=== PATIENT | male | born 1950 | race Caucasian/White ===

== ENCOUNTER → 2017-04-02 | Day surgery (SDC) | payer OTHER, MEDICARE ==
[2017-03-26 08:24] VITALS: Ht 175.3 cm; Wt 77.3 kg
[~2017-04-02] VITALS: Ht 175.3 cm; Wt 77.3 kg
[~2017-04-02] MED LIST: ALPR-411 PO; ASPCH81X PO; LIDOCAINE HCL 2% 2 ML VIAL (20MG/ML) ONE; MIDAZOLAM HCL 1 MG/ML 2ML VIAL ONE; PROPOFOL IV EMULSION 10 MG/ML 20 ML VIAL IV ONE; SIMV40TA2 PO; SODIUM CHLORIDE 0.9% 500ML 500 ML IV ONE; TRAZ100T29 PO
--- NOTE | 2017-04-02 10:35 | Endo History and Physical ---
History & Physical Date of Service: April 02, 2017. Chief Complaint: SCREENING FOR COLON C.A. Referring Physician: DR. STEVE WISDOM History of Present Illness 67 yo CM who presents for screening colonoscopy. Past Surgical History Hx Cardiac Surgery: No Hx Internal Defibrillator: No Hx Pacemaker: No Hx Abdominal Surgery: No Hx of Implantable Prosthesis: No Hx Post-Op Nausea and Vomiting: No Hx Cancer Surgery: Yes (BACK MELANOMA REMOVAL) Hx Thoracic Surgery: No Hx Orthopedic: Yes (LEFT KNEE ARTHROSCOPY, RT SHOULDER ARTHROSCOPY) Hx Urinary Tract Surgery: No Family History None Social History Smoking Status: Never Smoker Hx Substance Use: No Hx Alcohol Use: Yes (30 DRINKS WEEKLY) Allergies Coded Allergies: No Known Allergies (Verified , 04/02/17) Current Medications Reported Home Medications Medications Dose Route/Sig Max Daily Dose Days Date Category Xanax (Alprazolam) 0.5 Mg Tab 0.5 Mg PO HS PRN 03/26/17 Reported Trazodone (Trazodone HCl) 100 Mg Tab 100 Mg PO HS PRN 03/26/17 Reported Aspirin Chewable (Aspirin) 81 Mg Chew 81 Mg PO QPM 03/26/17 Reported Zocor (Simvastatin) 40 Mg Tab 40 Mg PO QPM 03/26/17 Reported Vital Signs Weight (Kilograms): 77.27 Height (Feet): 5 Height (Inches): 9 Date Time Temp Pulse Resp B/P Pulse Ox O2 Delivery O2 Flow Rate FiO2 04/02/17 09:20 36.9 69 14 147/73 99 Room Air Physical Exam General Appearance: WD/WN, no apparent distress Respiratory/Chest: Auscultation: breath sounds normal Cardiovascular: Heart Auscultation: RRR Abdomen: Bowel Sounds: normal Inspection & Palpation: soft, non-distended, no tenderness, guarding & rebound Assessment and Plan Assessment: 67 yo CM who presents for screening colonoscopy. Plan: Proceed with colonoscopy.
--- NOTE | 2017-04-02 10:58 | Discharge Instructions ---
Endoscopy Patient Instructions Date / Procedure(s) Performed April 02, 2017. Colonoscopy Allergy Information Coded Allergies: No Known Allergies (Verified , 04/02/17) Discharge Date / Findings April 02, 2017. Colon polyps Diverticulosis Internal hemorrhoids Medication Instructions Stopped Medication(s): ASPIRIN LAST 03/31/17 2100 OK to resume all medications today as prescribed Reported Home Medications Medications Dose Route/Sig Max Daily Dose Days Date Category Xanax (Alprazolam) 0.5 Mg Tab 0.5 Mg PO HS PRN 03/26/17 Reported Trazodone (Trazodone HCl) 100 Mg Tab 100 Mg PO HS PRN 03/26/17 Reported Aspirin Chewable (Aspirin) 81 Mg Chew 81 Mg PO QPM 03/26/17 Reported Zocor (Simvastatin) 40 Mg Tab 40 Mg PO QPM 03/26/17 Reported Provider Instructions Activity Restrictions - No exercising or heavy lifting for 24 hours. - Do not drink alcohol the day of the procedure. - Do not drive a car or operate machinery until the day after the procedure. - Do not make any important decisions or sign important papers in 24 hours after the procedure. Following Day: - Return to full activity which may include returning to work/school. Diet Start your diet with liquids and light foods (jello, soup, juice, toast). Then eat your usual diet if not nauseated. Treatment For Common After Affects For mild abdominal pain, bloating, or excessive gas: - Rest - Eat lightly - Lie on right side Follow-Up Information Follow-up with DR. STEVE WISDOM as scheduled Anesthesia Information What You Should Know You have had a procedure that required some medicine to reduce anxiety and discomfort. This treatment is called moderate sedation. After receiving the treatment, you may be sleepy, but you will be able to breathe on your own. The effects of the treatment may last for several hours. Follow these instructions along with Activity/Diet recommendations noted above: * Do NOT do anything where dizziness or clumsiness would be dangerous. * Rest quietly at home today, then you can be up and about tomorrow. * Have a responsible person stay with you the rest of today. * You may have had an I.V. today. If so, you may take the dressing off later today. Recommendations Call your doctor if: * Trouble breathing * Continuous vomiting for more than 24 hours * Temperature above 101 degrees * Severe abdominal pain or bloating * Pain not relieved by pain medicine ordered * There is increased drainage or redness from any incision * A large amount of rectal bleeding greater than 2-3 tablespoons. (If you had a polyp/s removed or have hemorrhoids, a small amount of blood - from the rectum is to be expected.) * You have any unanswered questions or concerns. IN THE EVENT OF A SERIOUS EMERGENCY, GO TO THE NEAREST EMERGENCY ROOM Your discharge instructions were prepared by provider Oren Eller. Patient Instructions Signature Page Rafael Cramer Patient (or Guardian) Signature/Date: I have read and understand the instructions given to me by my caregivers. Caregiver/RN/Doctor Signature/Date: The above-named patient and/or guardian has received patient instructions on this date. + Original Patient Signature Page (only) stays with chart. Please make copy for patient.
--- NOTE | 2017-04-02 10:58 | GI REPORT ---
Procedure Date: 04/02/2017 10:34 AM Procedure: Colonoscopy Indications: Screening for colorectal malignant neoplasm Medicines: Monitored Anesthesia Care Complications: No immediate complications. Estimated Blood Loss: Estimated blood loss: none. Procedure: Pre-Anesthesia Assessment: - Prior to the procedure, a History and Physical was performed, and patient medications and allergies were reviewed. The patient's tolerance of previous anesthesia was also reviewed. The risks and benefits of the procedure and the sedation options and risks were discussed with the patient. All questions were answered, and informed consent was obtained. Prior Anticoagulants: The patient has taken aspirin, last dose was 2 days prior to procedure. ASA Grade Assessment: II - A patient with mild systemic disease. After reviewing the risks and benefits, the patient was deemed in satisfactory condition to undergo the procedure. After I obtained informed consent, the scope was passed under direct vision. Throughout the procedure, the patient's blood pressure, pulse, and oxygen saturations were monitored continuously. The scope was introduced through the anus and advanced to the terminal ileum. The colonoscopy was performed without difficulty. The patient tolerated the procedure well. The quality of the bowel preparation was good. The terminal ileum, ileocecal valve, appendiceal orifice, and rectum were photographed. Findings: A 3 mm polyp was found in the cecum. The polyp was sessile. The polyp was removed with a cold biopsy forceps. Resection and retrieval were complete. A 5 mm polyp was found in the ascending colon. The polyp was sessile. The polyp was removed with a hot snare. Resection and retrieval were complete. Scattered small-mouthed diverticula were found in the entire colon. Non-bleeding internal hemorrhoids were found during retroflexion. The hemorrhoids were small. Impression: - One 3 mm polyp in the cecum, removed with a cold biopsy forceps. Resected and retrieved. - One 5 mm polyp in the ascending colon, removed with a hot snare. Resected and retrieved. - Diverticulosis in the entire examined colon. - Non-bleeding internal hemorrhoids. Recommendation: - Resume previous diet. - Continue present medications. - Repeat colonoscopy for surveillance based on pathology results. - Return to primary care physician as previously scheduled. Oren Eller DO 04/02/2017 10:58:45 AM This report has been signed electronically. Note Initiated On: 04/02/2017 10:34 AM I attest to the content of the Intraoperative Record and orders documented therein, exceptions below
--- NOTE | 2017-04-02 11:28 | Anesthesiology Progress Note ---
Anesthesia Post Op Note Date & Time April 02, 2017 at 11:27 Vital Signs Pain Intensity: 0 Vital Signs Past 12 Hours Date Time Temp Pulse Resp B/P Pulse Ox O2 Delivery O2 Flow Rate FiO2 04/02/17 11:15 66 16 122/80 97 Room Air 04/02/17 11:01 71 16 126/77 99 Room Air 04/02/17 09:20 36.9 69 14 147/73 99 Room Air Notes Mental Status: alert / awake / arousable, participated in evaluation Pt Amnestic to Procedure: Yes Nausea / Vomiting: adequately controlled Pain: adequately controlled Airway Patency, RR, SpO2: stable & adequate BP & HR: stable & adequate Hydration State: stable & adequate Anesthetic Complications: no major complications apparent
[2017-04-02 11:30] VITALS: BP 138/81; PULSE 73; O2SAT 97
== END | disposition home or self-care (01) ==
LOC: C.GI 09:02
PROVIDERS: ATTEND Internal Medicine
DX: Z12.11 Encounter for screening for malignant neoplasm of colon (principal); D12.0 Benign neoplasm of cecum; D12.2 Benign neoplasm of ascending colon; K57.30 Diverticulosis of large intestine without perforation or abscess without bleeding; K64.8 Other hemorrhoids; Z85.820 Personal history of malignant melanoma of skin; Z79.82 Long term (current) use of aspirin

== ENCOUNTER → 2017-07-02 | Outpatient (CLI) | payer OTHER, MEDICARE ==
[~2017-07-02] MED LIST changes: -LIDOCAINE HCL 2% 2 ML VIAL (20MG/ML) ONE; -MIDAZOLAM HCL 1 MG/ML 2ML VIAL ONE; -PROPOFOL IV EMULSION 10 MG/ML 20 ML VIAL IV ONE; -SODIUM CHLORIDE 0.9% 500ML 500 ML IV ONE
[2017-07-02 16:04] LABS: URINE PROTIEN/CREAT RATIO 0.3 (0-0.2); URINE TOTAL PROTEIN 59.9 mg/dl (0-11.9)
[2017-07-02 16:13] LABS: ALT/SGPT 22 U/L (12-78); AST/SGOT 14 U/L (15-37); BLOOD UREA NITROGEN 15 mg/dl (7-18); BUN/CREATININE RATIO 12.7 (10-20); CALCIUM 9.5 mg/dl (8.5-10.1); CARBON DIOXIDE 32 mmol/L (21-32); CHLORIDE 105 mmol/L (98-107); GLUCOSE 75 mg/dl (70-99); POTASSIUM 3.9 mmol/L (3.5-5.1); SODIUM 140 mmol/L (136-145)
[2017-07-02 16:24] LABS: ALB/GLOB RATIO 1.1 (0.9-2); ALKALINE PHOSPHATASE 54 U/L (45-117); CHOLESTEROL 188 mg/dl (0-200); CHOLESTEROL/HDL RATIO 2.6; HDL CHOLESTEROL 73 mg/dl; LDL CHOLESTEROL CALCULATED 89 mg/dl; PROSTATE SPECIFIC ANTIGEN 0.595 ng/ml (0.000-4.000); TRIGLYCERIDES 132 mg/dl (0-150); VERY LOW DENSITY LIPOPROT CALC 26 mg/dl
--- NOTE | 2017-07-09 08:26 | CODING QUERY MEDICAL NECESSITY ---
CQSUPPORTING DIAGNOSIS NEEDED A supporting diagnosis is required for the test/procedure performed on this patient in order for us to be reimbursed by the patient's insurance. Please provide a supporting diagnosis for the following test/procedure listed below next to the test name along with your signature. *If there is no additional diagnosis for this patient that would support the following test/procedure please document that below next to the test/procedure. Test(s)/Procedure(s) that require a supporting diagnosis: DOS 07/02/17 PROSTATE SPECIFIC ANTIGEN (PSA) Provider Signature: Date: Thank you Rosemarie London [facility] Information Management Once completed, please kindly fax back to [phone] For questions please call [phone]
== END | disposition home or self-care (01) ==
LOC: C.LAB 14:14
PROVIDERS: ATTEND Internal Medicine Geriatric Medicine
DX: Z00.00 Encounter for general adult medical examination without abnormal findings (principal); I10 Essential (primary) hypertension; E78.5 Hyperlipidemia, unspecified; R80.9 Proteinuria, unspecified; Z12.5 Encounter for screening for malignant neoplasm of prostate

== ENCOUNTER 2021-07-15 15:04 | Inpatient (IN) ==
[2021-07-15] MEDS ORDERED: SODIUM CHLORIDE 0.9% 1000ML 1,000 ML IV STA (16:56)
[2021-07-15] MEDS ORDERED: SODIUM CHLORIDE 0.9% 500 ML IV STA (16:56)
[2021-07-15 17:22] LABS: Basophils # (auto) 0.02 K/uL (0-0.2); Basophils % (auto) 0.3 %; Eosinophils # (auto) 0.77 K/uL (0-0.5); Hematocrit (blood only) 35.8 % (42-52); Hemoglobin 11.8 g/dL (14.0-18.0); Immature Granulocytes # (auto) 0.04 K/uL (0.00-0.02); Immature Granulocytes % (auto) 0.5 %; Lymphocytes # (auto) 0.61 K/uL (1.2-3.4); Lymphocytes % (auto) 7.9 %; Mean Corpuscular Hemoglobin 26.2 pg (25-34); Mean Corpuscular Volume 79.6 fL (80-100); Mean Platelet Volume 9.9 fL (7.4-10.4); Monocytes # (auto) 0.89 K/uL (0.11-0.59); Monocytes % (auto) 11.5 %; Neutrophils # (auto) 5.38 K/uL (1.4-6.5); Neutrophils % (auto) 69.8 %; Platelet Count 472 K/uL (130-400); RDW Coefficient of Variation 18.1 % (11.5-14.5); White Blood Count 7.71 K/uL (4.8-10.8)
--- NOTE | 2021-07-15 17:42 | XRay Report ---
XR chest 1V portable CLINICAL HISTORY: Fever COMPARISON STUDY: Chest radiograph May 30, 2016. FINDINGS: Lung volumes are normal. Lungs are clear. There is no pneumothorax or pleural effusion. Car diac size is normal. Mediastinal contours are normal. There is no evidence for pulmonary edema. IMPRESSION: No acute cardiopulmonary findings. ACT 112: Negative or not required by law. Electronically signed by: Braeden Hart M.D. 07/15/2021 5:41 PM
[2021-07-15 17:43] LABS: Appearance Urine Clear (Clear); Bacteria Urine Automated Negative (Negative); Blood Urine 1+ (Negative); Color Urine Dark Yellow; Epithelial Cell Urine Auto 0-5 /lpf (0-5); Glucose Urine UA Negative (Negative); Ketones Urine Negative (Negative); Leukocyte Esterase Urine 1+ (Negative); Nitrite Urine Positive (Negative); Protein Urine 2+ (Negative); RBC Urine Automated 0-4 /hpf (0-4); Urobilinogen Urine Negative (Negative); WBC Urine Automated 0 /hpf (0-5); pH Urine 5.5 (4.5-7.5)
[2021-07-15 17:44] LABS: Bilirubin Urine 3+ (Negative)
[2021-07-15 18:07] LABS: Alanine Aminotransferase 649 U/L (12-78); Albumin Globulin Ratio 0.8 (0.9-2); Albumin Level 3.2 gm/dl (3.4-5.0); Alkaline Phosphatase 344 U/L (45-117); Aspartate Aminotransferase 261 U/L (15-37); BUN Creatinine Ratio 8.2 (10-20); Bilirubin,Total 17.4 mg/dl (0.2-1); Blood Urea Nitrogen 9 mg/dl (7-18); Calcium 9.3 mg/dl (8.5-10.1); Carbon Dioxide 26 mmol/L (21-32); Chloride 101 mmol/L (98-107); Est GFR (African American) 74.3 ml/min; Est GFR (Non-African American) 64.1 ml/min; Globulin 4.1 gm/dl (2.5-4.0); Glucose 124 mg/dl (70-99); Lipase 183 U/L (73-393); Potassium 3.9 mmol/L (3.5-5.1); Sodium 134 mmol/L (136-145); Total Protein 7.3 gm/dl (6.4-8.2)
--- NOTE | 2021-07-15 18:35 | Emergency Department Note ---
Impression & Plan Fever ED Provider Note INFORMANT: Patient ED PROVIDER(S): Austin Baeza MD CHIEF COMPLAINT: Fever PLAN: Disposition: Admitted Condition: Good Outpatient prescription management: none Referral: None MEDICAL DECISION MAKING: Patient presented to emergency department because of fever after his attempted stenting of his biliary duct. The patient was afebrile and had stable vital sig ns in the ER. He had no significant pain. A work-up was initiated. CBC revealed mild anemia but no leukocytosis. Lactate was negative. The patient's urinalysis did reveal findings of a positive nitrate but his bilirubin was significantly elevated and urine was abnormal in color. The patient has no urinary symptoms. He has a significant elevation of his LFTs. When compared to prior his AST and ALT are improved. Alk phos and his total bilirubin is elevated. His total bilirubin jumped from 9.1 on July 10- 0.4. The patient was given a dose of IV Zosyn. I did consult with gastroenterology, Dr. Johnston who recommended transfer to [place] as he is concerned that we do not have the capability to stent the patient here. I did consult with Dr. Mantilla and Dr. Thayer at [facility]. The patient was accepted in transfer and we are awaiting a bed. We were notified by [facility] that they would not have a bed tonight but would have 1 tomorrow morning. Transport is also limited at this point in time. Because of this the patient will benefit from admission to the hospital here pending arrangement of the transfer. [facility]. Patient was evaluated in ER admitted for further management and pending transfer. Medical command for transfer was done by ct. Consent was signed. Triage Nursing notes reviewed and agree them. Vital Signs: reviewed and remarkable for no significant abnormalities Differential diagnosis: Complication of recent endoscopy, viral syndrome, otitis, pharyngitis, pneumonia, influenza, meningitis, urinary tract infection, sepsis, bacteremia, as well as other pathologies. Diagnostics interpreted by me: ECG: none Cardiac Monitoring: Cardiac monitoring ordered by me: The patient was placed on continuous cardiac monitoring and observed. It revealed a normal sinus rhythm at 80 beats per minute without ectopy or evidence of dysrhythmia. Imaging studies: Deferred HPI: The patient is a 71 year old male who presents to the Emergency Room with complaints of fever. This started today. The patient had an attempted stent placement from his pancreatic duct by Dr. Maradiaga of GI on Saturday. He notes that the stent was not able to be placed. He has a mass in his pancreas that was occluding. He has been jaundice. He notes biopsies done at the time were inconclusive. He is pending an appointment this week at [facility]. The patient also notes the following associated symptoms, dark urine which has been an issue since his onset of jaundice. The patient has taken no medication for relieving factors. Current pain is rated as 0/10. Pt denies LOC, headache, chills, diaphoresis, visual changes, neck pain, chest pain, breathing difficulties, nausea, vomiting, abdominal pain, back pain, melena, hematochezia, numbness, weakness, lymphadenopathy, rash, or other complaints. ROS: See above HPI for pertinent positives & negatives. A total of 10 systems reviewed and were otherwise negative. PAST MEDICAL HISTORY:See Below , pancreatic mass, jaundice PAST SURGICAL HISTORY:See Below, FAMILY HISTORY:See Below SOCIAL HISTORY:See Below, HOME MEDICATIONS:See Below ALLERGIES:See Below VITALS:See Below PHYSICAL EXAMINATION: GENERAL: Awake, alert, jaundiced-appearing, in no distress HENT: Normocephalic, atraumatic. Oropharynx unremarkable. EYES: Normal conjunctiva. Sclera are icteric. NECK: Inspection normal. Non-tender. Supple. No nuchal rigidity. FROM. No masses. RESPIRATORY: Clear to auscultation. No wheezes. No rales. Normal respiratory effort. CARDIAC: Normal rate. Normal rhythm. No murmurs. No rubs. Extremities warm and well perfused. Pulses equal. No JVD. GI: Soft, non-distended. No tenderness to palpation. No rebound or guarding. No masses. RECTAL: Deferred. MUSCULOSKELETAL: Atraumatic. Chest examination reveals no tenderness. The back is symmetrical on inspection without obvious abnormality. There is no CVA tenderness to palpation. No joint edema. LOWER EXTREMITIES: Calves are equal size bilaterally and non-tender. No edema. No discoloration. NEURO: Normal sensorium. No sensory or motor deficits noted. SKIN: No rash. Mild jaundice noted. Austin Baeza MD Past Med/Surg History Medical History (Updated 07/15/21 @ 18:35 by Austin Baeza MD) Alcohol abuse Anemia Anxiety Chronic osteoarthritis DVT of leg (deep venous thrombosis) 2019, previously on Eliquis (since discontinued), no issues since Hyperlipidemia Meds on hold r/t liver function per pt Hypertension Controlled off meds per pt Insomnia Pancreatic mass Personal history of malignant melanoma of skin Scoliosis Surgical History Hx of colonoscopy Hx of tonsillectomy Social History (Updated 01/05/19 @ 16:38 by Linwood Wilkinson MD) Smoking Status: Never smoker Second Hand Exposure: No; Hx Alcohol Use: Yes Alcohol type: beer Hx Substance Use: Yes Last Used Substance Other:: medical marijuanna card uses ocas Preferred Language: Arabic Communication Ability: Effective Assembler Billiard Table Required: No Beliefs That Will Affect Care: None Current Living Situation: Spouse current occupational status: employed 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 Feels Safe at Home: Yes Assistive Devices: Glasses Allergies Allergies Allergy/AdvReac Type Severity Reaction Status Date / Time No Known Allergies Allergy Verified 07/15/21 17:58 Home Meds Home Medications Medication Instructions Recorded Confirmed simvastatin 40 mg tablet 40 mg PO HS 01/05/19 07/15/21 aspirin 81 mg tablet,delayed 81 mg PO QAM 04/28/19 07/15/21 release fluorouracil 0.5 % topical cream 1 applic TOPICAL DAILY 07/11/21 07/15/21 ciprofloxacin HCl 500 mg tablet 500 mg PO BID 07/15/21 07/15/21 Previous Rx's Medication Instructions Recorded alprazolam 0.5 mg tablet 0.5 mg PO HS PRN #30 tab 07/02/19 trazodone 100 mg tablet 100 mg PO HS PRN #90 tab 07/02/19 Results & Data (ED) Vital Signs Vital Signs - 24 hr 07/15/21 15:16 07/15/21 17:31 07/15/21 19:42 Temperature 36.9 C Temperature Source Oral Pulse Rate 107 H Pulse Rate [Radial] 88 88 Pulse Rhythm Regular Pulse Strength Normal Respiratory Rate 18 16 16 Respiratory Effort / Characteristics Non-Labored Spontaneous Respiratory Depth Normal Respiratory Pattern Regular Blood Pressure 146/85 H Blood Pressure [Left Arm] 148/88 H 148/88 H Blood Pressure Mean 105 Blood Pressure Mean [Left Arm] 108 108 Pulse Oximetry 99 96 97 Oxygen Delivery Method Room Air Room Air Room Air Sepsis Recent Fever Within 48 Hours Yes Sepsis New/Unexplained Change in Mental Status No Sepsis Action Taken by Nursing No Action Required 07/15/21 21:41 Temperature Temperature Source Pulse Rate Pulse Rate [Radial] 80 Pulse Rhythm Pulse Strength Respiratory Rate 16 Respiratory Effort / Characteristics Respiratory Depth Respiratory Pattern Blood Pressure Blood Pressure [Left Arm] 144/83 H Blood Pressure Mean Blood Pressure Mean [Left Arm] 103 Pulse Oximetry 96 Oxygen Delivery Method Room Air Sepsis Recent Fever Within 48 Hours Sepsis New/Unexplained Change in Mental Status Sepsis Action Taken by Nursing Laboratory Data Result diagrams: 07/15/21 17:11 07/15/21 17:11 Lab Results 07/15/21 07/15/21 07/15/21 Range/Units 17:11 17:11 17:11 WBC 7.71 (4.8-10.8) K/uL RBC 4.50 L (4.7-6.1) M/uL Hgb 11.8 L (14.0-18.0) g/dL Hct 35.8 L (42-52) % MCV 79.6 L (80-100) fL MCH 26.2 (25-34) pg MCHC 33.0 (32-36) g/dL RDW Std Deviation 52.0 H (36.4-46.3) fL RDW Coeff of Gricelda 18.1 H (11.5-14.5) % Plt Count 472 H (130-400) K/uL MPV 9.9 (7.4-10.4) fL Immature Gran % (Auto) 0.5 % Neut % (Auto) 69.8 % Lymph % (Auto) 7.9 % Ogle % (Auto) 11.5 % Eos % (Auto) 10.0 % Baso % (Auto) 0.3 % Neut # (Auto) 5.38 (1.4-6.5) K/uL Lymph # (Auto) 0.61 L (1.2-3.4) K/uL Ogle # (Auto) 0.89 H (0.11-0.59) K/uL Eos # (Auto) 0.77 H (0-0.5) K/uL Baso # (Auto) 0.02 (0-0.2) K/uL Immature Gran # (Auto) 0.04 H (0.00-0.02) K/uL Sodium 134 L (136-145) mmol/L Potassium 3.9 (3.5-5.1) mmol/L Chloride 101 (98-107) mmol/L Carbon Dioxide 26 (21-32) mmol/L Anion Gap 7.0 (3-11) BUN 9 (7-18) mg/dl Creatinine 1.15 (0.6-1.4) mg/dl Est Cr Clr Drug Dosing Not Reportable Est GFR ( Amer) 74.3 ml/min Est GFR (Non-Af Amer) 64.1 ml/min BUN/Creatinine Ratio 8.2 L (10-20) Glucose 124 H (70-99) mg/dl Lactate 1.3 (0.4-2.0) mmol/L Calcium 9.3 (8.5-10.1) mg/dl Total Bilirubin 17.4 H (0.2-1) mg/dl AST 261 H (15-37) U/L ALT 649 H (12-78) U/L Alkaline Phosphatase 344 H (45-117) U/L Total Protein 7.3 (6.4-8.2) gm/dl Albumin 3.2 L (3.4-5.0) gm/dl Globulin 4.1 H (2.5-4.0) gm/dl Albumin/Globulin Ratio 0.8 L (0.9-2) Lipase 183 (73-393) U/L Urine Color Urine Appearance (Clear) Urine pH (4.5-7.5) Ur Specific [place] (1.000-1.030) Urine Protein (Negative) Urine Glucose (UA) (Negative) Urine Ketones (Negative) Urine Blood (Negative) Urine Nitrite (Negative) Urine Bilirubin (Negative) Urine Urobilinogen (Negative) Ur Leukocyte Esterase (Negative) Urine WBC (Auto) (0-5) /hpf Urine RBC (Auto) (0-4) /hpf U Hyaline Cast (Auto) (0-5) /lpf U Epithel Cells (Auto) (0-5) /lpf Urine Bacteria (Auto) (Negative) COVID-19 Eval Order SARS-CoV-2 (PCR) (Negative) 07/15/21 07/15/21 07/15/21 Range/Units 17:11 17:11 17:30 WBC (4.8-10.8) K/uL RBC (4.7-6.1) M/uL Hgb (14.0-18.0) g/dL Hct (42-52) % MCV (80-100) fL MCH (25-34) pg MCHC (32-36) g/dL RDW Std Deviation (36.4-46.3) fL RDW Coeff of Gricelda (11.5-14.5) % Plt Count (130-400) K/uL MPV (7.4-10.4) fL Immature Gran % (Auto) % Neut % (Auto) % Lymph % (Auto) % Ogle % (Auto) % Eos % (Auto) % Baso % (Auto) % Neut # (Auto) (1.4-6.5) K/uL Lymph # (Auto) (1.2-3.4) K/uL Ogle # (Auto) (0.11-0.59) K/uL Eos # (Auto) (0-0.5) K/uL Baso # (Auto) (0-0.2) K/uL Immature Gran # (Auto) (0.00-0.02) K/uL Sodium (136-145) mmol/L Potassium (3.5-5.1) mmol/L Chloride (98-107) mmol/L Carbon Dioxide (21-32) mmol/L Anion Gap (3-11) BUN (7-18) mg/dl Creatinine (0.6-1.4) mg/dl Est Cr Clr Drug Dosing Est GFR ( Amer) ml/min Est GFR (Non-Af Amer) ml/min BUN/Creatinine Ratio (10-20) Glucose (70-99) mg/dl Lactate (0.4-2.0) mmol/L Calcium (8.5-10.1) mg/dl Total Bilirubin (0.2-1) mg/dl AST (15-37) U/L ALT (12-78) U/L Alkaline Phosphatase (45-117) U/L Total Protein (6.4-8.2) gm/dl Albumin (3.4-5.0) gm/dl Globulin (2.5-4.0) gm/dl Albumin/Globulin Ratio (0.9-2) Lipase (73-393) U/L Urine Color Dark Yellow Urine Appearance Clear (Clear) Urine pH 5.5 (4.5-7.5) Ur Specific [place] 1.020 (1.000-1.030) Urine Protein 2+ H (Negative) Urine Glucose (UA) Negative (Negative) Urine Ketones Negative (Negative) Urine Blood 1+ H (Negative) Urine Nitrite Positive A (Negative) Urine Bilirubin 3+ H (Negative) Urine Urobilinogen Negative (Negative) Ur Leukocyte Esterase 1+ H (Negative) Urine WBC (Auto) 0 (0-5) /hpf Urine RBC (Auto) 0-4 (0-4) /hpf U Hyaline Cast (Auto) 1-5 (0-5) /lpf U Epithel Cells (Auto) 0-5 (0-5) /lpf Urine Bacteria (Auto) Negative (Negative) COVID-19 Eval Order Covid19 at [facility] SARS-CoV-2 (PCR) NEGATIVE (Negative) Administered Medications Discontinued Medications Sodium Chloride (Nss 1000ml) 1,000 mls @ 125 mls/hr IV .Q8H STA Stop: 07/16/21 00:55 Last Admin: 07/15/21 21:43 Dose: 125 mls/hr Documented by: [id number] Sodium Chloride (Nss) 500 mls @ 999 mls/hr IV .Q31M STA Stop: 07/15/21 17:26 Last Infusion: 07/15/21 20:23 Dose: 0 mls/hr Documented by: [id number] Admin: 07/15/21 19:38 Dose: 999 mls/hr Documented by: [id number] Piperacillin Sod/Tazobactam Sod (Zosyn) 4.5 gm in 120 mls @ 240 mls/hr IV NOW ONE Stop: 07/15/21 19:46 Last Infusion: 07/15/21 19:55 Dose: 0 mls/hr Documented by: [id number] Admin: 07/15/21 19:25 Dose: 240 mls/hr Documented by: [id number] Imaging Data Radiologist's Impression: Chest X-Ray 07/15/21 16:56 XR chest 1V portable CLINICAL HISTORY: Fever COMPARISON STUDY: Chest radiograph May 30, 2016. FINDINGS: Lung volumes are normal. Lungs are clear. There is no pneumothorax or pleural effusion. Cardiac size is normal. Mediastinal contours are normal. There is no evidence for pulmonary edema. IMPRESSION: No acute cardiopulmonary findings. ACT 112: Negative or not required by law. Electronically signed by: Braeden Hart M.D. 07/15/2021 5:41 PM Discharge Plan Visit Data Chief Complaint: Fever Stated Complaint: FEVER,LOSS OF APPETITE,S/P EGD ED Provider: Austin Baeza Discharge Problem: Fever
[2021-07-15] MEDS ORDERED: PIPERACILL/TAZOBAC CONSULT ACTIVE PRN (19:17)
[2021-07-15] MEDS ORDERED: PIPERACILLIN/TAZOBACTAM 4.5 GM/120 ML BAG IV ONE (19:17)
[2021-07-15] MEDS ORDERED: ALPRAZolam 0.5 MG TABLET PO PRN (23:21)
[2021-07-15] MEDS ORDERED: SODIUM CHLORIDE 0.9% 1000ML 1,000 ML IV SCH (23:21)
[2021-07-15] MEDS ORDERED: traZODone HCL 100 MG TAB PO PRN (23:21)
[2021-07-15] MEDS ORDERED: ONDANSETRON INJ 2 MG/ML 2 ML VIAL IV PRN (23:21)
[2021-07-15] MEDS ORDERED: POLYETHYLENE (MIRALAX) 17 GM PACK PO PRN (23:21)
[2021-07-15] MEDS ORDERED: NITROGLYCERIN SL 0.4 MG/TAB TAB SL PRN (23:21)
--- NOTE | 2021-07-15 23:37 | History and Physical Report ---
DATE OF ADMISSION: 07/15/2021. CHIEF COMPLAINT: Fever. HISTORY OF PRESENT ILLNESS: This is a 71-year-old male with past medical history significant for hyperlipidemia, hypertension, history of alcohol abuse, history of heterogenous factor V Leiden mutation, history of DVT. The patient recently about 2 weeks ago found to have change in his urine color and also started noticing new-onset jaundice. 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 But today he comes with fever. ER called the GI production troubleshooter and they advised to transfer him to tertiary care because they could not cannulate him here and as per the ER physician, Angie Gonzalez accepted him for transfer, was accepting physician, but because they do not have bed available, the patient is getting admitted, advised to give antibiotics and transfer whenever the bed is available. Currently, the patient is resting comfortably and hemodynamically stable, alert and oriented. Currently, he is afebrile. Has a mild headache. Denies any blurred visions, no earache, no runny nose. Currently, no sore throat or cough. No nausea, no vomiting. Appetite is okay. No dysphagia, no chest pain, no shortness of breath, no nausea. Has some squeezy feeling in the abdomen, but no abdominal pain. Stools are jo color and no blood in the stools, no hematuria. Urine looks orange color. No swelling in the legs, no rash. ALLERGIES: LISINOPRIL. PAST MEDICAL HISTORY: As mentioned above. PAST SURGICAL HISTORY: Cataract surgery, colonoscopy, left knee arthroscopy, tonsillectomy, adenoidectomy, left shoulder arthroscopy, vasectomy, ERCP. MEDICATIONS: Currently the patient is on alprazolam 0.5 mg p.o. at bedtime p.r.n., aspirin 81 mg p.o. daily, ciprofloxacin 500 mg p.o. b.i.d., fluorouracil 1 application topical daily, simvastatin 40 mg p.o. at bedtime, trazodone 100 mg p.o. at bedtime p.r.n. FAMILY HISTORY: Significant for father had brain cancer, prostate cancer, and heart disease; mother has ovarian cancer; brother has high lipids. SOCIAL HISTORY: , no smoking. Alcohol, drinks 4 drinks a day. Smokes marijuana. REVIEW OF SYSTEMS: As per HPI. Rest of the review of systems is negative. PHYSICAL EXAMINATION: GENERAL: The patient is of moderate build, not in acute distress. VITAL SIGNS: Temperature 36.9, pulse 80, respiratory rate 16, blood pressure 144/83, oxygen 96% on room air. HEENT: Icterus present. Pupils equal, round, and reactive to light. Oral mucosa moist. NECK: No JVD, no neck masses. CARDIOVASCULAR: S1 and S2 heard. Regular rate and rhythm. No murmur, no gallop. RESPIRATORY SYSTEM: Normal AP diameter. No accessory muscle use. No wheezing, no crackles. ABDOMEN: Soft, bowel sounds present, nontender, no distention. CENTRAL NERVOUS SYSTEM: Cranial nerves II-XII are grossly intact, nonfocal. EXTREMITIES: No edema, no erythema. LABORATORY DATA: WBC 7.7, hemoglobin 11.8, hematocrit 35.8, platelets 472. Sodium 134, potassium 3.9, chloride 101, bicarb 26, BUN 9, creatinine 1.1, serum glucose 124, calcium lactate 1.3, calcium 9.3, total bilirubin 17.4, AST 261, ALT 649, alkaline phosphatase 344. Lipase 183. Urinalysis, +1 blood. Positive for urine nitrite. SARS-CoV-2 PCR negative. IMAGING DATA: Chest x-ray, no acute cardiopulmonary findings. ASSESSMENT AND PLAN: A 71-year-old male who was recently found to have pancreatic mass, who presents with fever. 1. Fever: The patient was recently found to have new-onset jaundice and pancreatic mass on ERCP done on 07/12/2021. Unable to cannulate the common bile duct or pancreatic duct. Plan was to transfer the patient to tertiary care for further care. The patient has appointment with Austin Douglass coming Saturday, presents with fever. ER empirically started on Zosyn, which will be continued. GI wanted him transferred to [place] and the ER physician talked to [place], they accepted the patient in transfer, accepting physician was Dr. Mantilla but as the beds are not available, we are keeping the patient overnight and transfer whenever the bed is available. We will keep him n.p.o., IV fluids, IV Zosyn, and closely monitor. Elevated bilirubin, most likely secondary to biliary obstruction from the pancreatic mass. Plan for stent as soon as possible. 2. Possible urinary tract infection: On Zosyn. Follow the cultures. 3. Hyperlipidemia: Hold the statin for now. 4. History of alcohol abuse:Says drinks 4 drinks every day. But has not drank any for last 4 days. We will monitor for any withdrawal. 5. History of hypertension: Currently not on any medication, will monitor. 6. Deep venous thrombosis prophylaxis: We will place him on sequential compression devices following the plan for procedure. DISPOSITION: Closely monitor in the [facility]. Transfer to [place] whenever the bed is available, as soon as possible. Social service to help with discharge planning. Job ID: [id number]
[2021-07-16] MEDS ORDERED: PIPERACILLIN/TAZOBACTAM 3.375 GM in DEXTROSE 5% 100 ML IV SCH (02:00)
--- NOTE | 2021-07-16 07:40 | Hospitalist Progress Note ---
Date of Service July 16, 2021 Assessment & Plan (1) Fever: Plan: ASSESSMENT AND PLAN: A 71-year-old male who was recently found to have pancreatic mass, who presents with fever. 1. Fever, Possible Cholangitis, Biliary Obstruction per admitting MD notes: The patient was recently found to have new-onset jaundice and pancreatic mass on ERCP done on 07/12/2021. Unable to cannulate the common bile duct or pancreatic duct. Plan was to transfer the patient to tertiary care for further care. The patient has appointment with Austin Douglass coming Saturday, presents with fever. ER empirically started on Zosyn, which will be continued. GI wanted him transferred to [place] and the ER physician talked to [place], they accepted the patient in transfer, accepting physician was Dr. Mantilla but as the beds are not available, we are keeping the patient overnight and transfer whenever the bed is available. We will keep him n.p.o., IV fluids, IV Zosyn, and closely monitor. Elevated bilirubin, most likely secondary to biliary obstruction from the pancreatic mass. Plan for stent as soon as possible. -- Tot Eavn 17.4 AST 261 ALT 649 AP 344 Blood cultures: pending -- given Zosyn IV NSS -- afebrile overnight denies abdominal pain this AM -- transfer to [facility] for possible Stent placement 2. Possible urinary tract infection: On Zosyn. 3. Hyperlipidemia: -- hold Statin 4. History of alcohol abuse: -- Says drinks 4 drinks every day. But has not drank any for last 4 days. -- monitor for withdrawal 5. History of hypertension: -- monitor 6. Deep venous thrombosis prophylaxis: SCD plan of care discussed with patient in detail and at length all questions answered he is understanding, agreeable, comfortable with the plan of care Admission and Anticipated Discharge Date Admission Date: July 15, 2021 Subjective ff up for fever, possible cholangitis seen sitting up in bed, comfortable states he feels fine overall abdominal discomfort is much better no chills, nausea no chest pain, dyspnea, palpitations, dizziness no other symptoms Review of Systems Review of Systems: all noted and negative except for above Physical Exam 2 Physical Exam: General- oriented x 3, not in distress, speaks in sentences with no effort or accessory muscle use Head- atraumatic Eyes- PERRL, EOMI, anicteric ENT- oropharynx clear Neck- supple, no JVD, no adenopathy, no thyromegaly; carotids +2/2, no bruits appreciated Lungs- clear to auscultation bilaterally, no rales/wheezes Heart- normal rate, regular rhythm; no murmur, no gallop, no rub appreciated Abdomen- normal bowel sounds, nondistended, soft, nontender, no masses or hepatosplenomegaly Extremities- no pretibial edema, no calf tenderness; peripheral pulses intact Neuro- alert, oriented x 3; CN 2-12 grossly intact; motor 5/5 bilaterally;sensation 100% on all extremities; no other gross focal neurologic deficits Skin- warm & dry Results & Data Results & Data ([facility]) Vital Signs (Past 12 Hours) Vital Signs Temp Pulse Pulse Resp BP Pulse Ox 07/16/21 07:31 80 07/15/21 23:42 83 07/15/21 23:29 37.1 C 84 16 137/81 97 07/15/21 23:18 37.1 C 84 16 137/81 97 07/15/21 21:41 80 16 144/83 H 96 07/15/21 19:42 88 16 148/88 H 97 all noted and reviewed including below
--- NOTE | 2021-07-16 08:03 | Discharge Summary ---
Date of Service July 16, 2021 Admission HPI Per Admitting Provider HISTORY OF PRESENT ILLNESS: This is a 71-year-old male with past medical history significant for hyperlipidemia, hypertension, history of alcohol abuse, history of heterogenous factor V Leiden mutation, history of DVT. The patient recently about 2 weeks ago found to have change in his urine color and also started noticing new-onset jaundice. 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 But today he comes with fever. ER called the GI head neck surgeon and they advised to transfer him to tertiary care because they could not cannulate him here and as per the ER physician, Angie Gonzalez accepted him for transfer, was accepting physician, but because they do not have bed available, the patient is getting admitted, advised to give antibiotics and transfer whenever the bed is available. Currently, the patient is resting comfortably and hemodynamically stable, alert and oriented. Currently, he is afebrile. Has a mild headache. Denies any blurred visions, no earache, no runny nose. Currently, no sore throat or cough. No nausea, no vomiting. Appetite is okay. No dysphagia, no chest pain, no shortness of breath, no nausea. Has some squeezy feeling in the abdomen, but no abdominal pain. Stools are jo color and no blood in the stools, no hematuria. Urine looks orange color. No swelling in the legs, no rash. Admission Exam Per Admitting Provider GENERAL: The patient is of moderate build, not in acute distress. VITAL SIGNS: Temperature 36.9, pulse 80, respiratory rate 16, blood pressure 144/83, oxygen 96% on room air. HEENT: Icterus present. Pupils equal, round, and reactive to light. Oral mucosa moist. NECK: No JVD, no neck masses. CARDIOVASCULAR: S1 and S2 heard. Regular rate and rhythm. No murmur, no gal lop. RESPIRATORY SYSTEM: Normal AP diameter. No accessory muscle use. No wheezing, no crackles. ABDOMEN: Soft, bowel sounds present, nontender, no distention. CENTRAL NERVOUS SYSTEM: Cranial nerves II-XII are grossly intact, nonfocal. EXTREMITIES: No edema, no erythema. Principal Diagnosis FEVER POSSIBLE ASCENDING CHOLANGITIS Discharge Exam General- oriented x 3, not in distress, speaks in sentences with no effort or accessory muscle use Head- atraumatic Eyes- PERRL, EOMI, anicteric ENT- oropharynx clear Neck- supple, no JVD, no adenopathy, no thyromegaly; carotids +2/2, no bruits appreciated Lungs- clear to auscultation bilaterally, no rales/wheezes Heart- normal rate, regular rhythm; no murmur, no gallop, no rub appreciated Abdomen- normal bowel sounds, nondistended, soft, nontender, no masses or hepatosplenomegaly Extremities- no pretibial edema, no calf tenderness; peripheral pulses intact Neuro- alert, oriented x 3; CN 2-12 grossly intact; motor 5/5 bilaterally;sensation 100% on all extremities; no other gross focal neurologic deficits Skin- warm & dry Discharge Data Allergies Allergy/AdvReac Type Severity Reaction Status Date / Time No Known Allergies Allergy Verified 07/15/21 17:58 Consultations 07/15/21 21:07 ED Decision to Admit Stat Hospital Course (1) Fever: ASSESSMENT AND PLAN: A 71-year-old male who was recently found to have pancreatic mass, who presents with fever. 1. Fever, Possible Cholangitis, Biliary Obstruction per admitting MD notes: The patient was recently found to have new-onset jaundice and pancreatic mass on ERCP done on 07/12/2021. Unable to cannulate the common bile duct or pancreatic duct. Plan was to transfer the patient to tertiary care for further care. The patient has appointment with [facility] coming Saturday, presents with fever. ER empirically started on Zosyn, which will be continued. GI wanted him transferred to [place] and the ER physician talked to [place], they accepted the patient in transfer, accepting physician was Dr. Mantilla but as the beds are not available, we are keeping the patient overnight and transfer whenever the bed is available. We will keep him n.p.o., IV fluids, IV Zosyn, and closely monitor. Elevated bilirubin, most likely secondary to biliary obstruction from the pancreatic mass. Plan for stent as soon as possible. -- Tot Evan 17.4 AST 261 ALT 649 AP 344 Blood cultures: pending -- given Zosyn IV NSS -- afebrile overnight denies abdominal pain this AM -- transfer to [facility] for possible Stent placement 2. Possible urinary tract infection: On Zosyn. 3. Hyperlipidemia: -- hold Statin 4. History of alcohol abuse: -- Says drinks 4 drinks every day. But has not drank any for last 4 days. -- monitor for withdrawal 5. History of hypertension: -- monitor 6. Deep venous thrombosis prophylaxis: SCD plan of care discussed with patient in detail and at length all questions answered he is understanding, agreeable, comfortable with the plan of care Total Time Total Time Spent Total Time Spent (In Minutes): 35 MINUTES Discharge Plan Discharge Items Patient Disposition: Transfer Acute Care Hospital Reason For Visit: FEVER Discharge Diagnosis: FEVER, POSSIBLE CHOLANGITIS Activity: Resume your previous activity Non-emergency contact: Primary Care Provider Call non-emergency contact if: you have any medication questions, your symptoms worsen, your pain is not controlled, your pain is worsening, your pain is unusual for you, your pain is concerning for you and you have a fever Follow-up/Referrals: Sergio Barriga MD [Primary Care Provider] - Diet: Heart Healthy Addtl Attending Provider Instructions: please refer to accompanying hospital discharge summary. Pending Studies at Discharge: Yes Studies:: blood culture results (drawn 07/15/21) Stand-Alone Forms: My [facility] Skilled Items Patient informed of condition?: Yes DNR: No Discharge Level of Care: Other Communicable Disease: No Discharge Prognosis: Stable Lines: Peripheral IV Urinary Catheter: No Medications and DC Order Prescriptions: Continued alprazolam 0.5 mg tablet 0.5 mg PO HS PRN (Reason: Insomnia) Qty: 30 RF: 0 trazodone 100 mg tablet 100 mg PO HS PRN (Reason: Insomnia) Qty: 90 RF: 3 fluorouracil 0.5 % Cream 1 applic TOPICAL DAILY RF: 0 Discontinued aspirin 81 mg tablet,delayed release (DR/EC) 81 mg PO QAM RF: 0 simvastatin 40 mg tablet 40 mg PO HS RF: 0 ciprofloxacin HCl 500 mg tablet 500 mg PO BID RF: 0 Discharge Orders: Discharge Order (Routine); Ordered 07/16/21 Ordered By: Damian Lomas Admission Data Admit Date/Time: 07/15/21 22:14 Attending Provider: Damian Lomas Admit Provider: Jalen Xavier Primary Care Provider: Sergio Barriga Other Providers: Jalen Xavier
[2021-07-16] MEDS ORDERED: ASPIRIN 81 MG ECTAB PO SCH (09:00)
== END 2021-07-16 07:45 | disposition short-term general hospital (02) | DRG 444 ==
LOC: ED 15:04 → 2W 22:14

== ENCOUNTER 2024-04-18 15:36 | Inpatient (IN) ==
--- NOTE | 2024-04-18 16:01 | Emergency Department Note ---
Impression & Plan Pneumonia, Anemia, Leukocytosis ED Provider Note NAME: MERYL MARTINEZ AGE: 74 SEX: M : 1950 ARRIVES VIA: Walk-In INFORMANT: Patient ED PROVIDER(S): Surinder Antunez DO CHIEF COMPLAINT: fever HPI: Patient is a 74-year-old male with a past medical history of hyperlipidemia, anemia, pancreatic cancer with Whipple who just recently discovered that he has a liver mass. Last chemo was on the of this month. He is due on this Saturday. He follows with [facility] hematology oncology. Fever as high as 104 earlier today. Admits to feeling weak rundown and having shaking chills. Denies any other symptoms. No headache or change in vision. No chest pain or shortness of breath. He has a little bit of a cough but notes that this is fairly typical for him as has been coming and going for quite some time. No dysuria, urgency or frequency. No open wounds or sores other than a small abrasion on his right knee. provides ADDITIONAL HISTORY OBTAINED: Per HPI Chronic Medical/Social Conditions Affecting Care: Per HPI PAST MEDICAL HISTORY:See Below PAST SURGICAL HISTORY:See Below FAMILY HISTORY:See Below SOCIAL HISTORY:See Below HOME MEDICATIONS:See Below ALLERGIES:See Below VITALS:See Below PHYSICAL EXAMINATION: GENERAL: Sitting up in bed, alert, well appearing, well nourished, no distress, non-toxic EYE EXAM: normal conjunctiva. PERRL and EOM's grossly intact. OROPHARYNX: no exudate, no erythema, lips, buccal mucosa, and tongue normal and mucous membranes are moist NECK: supple, no nuchal rigidity, no adenopathy, non-tender LUNGS: Clear to auscultation. Normal chest wall mechanics HEART: no murmurs, S1 normal and S2 normal ABDOMEN: abdomen soft, non-tender, normo-active bowel sounds, no masses, no rebound or guarding. BACK: Back is symmetrical on inspection and there is no deformity, no midline tenderness, no CVA tenderness. SKIN: Small abrasion on right knee. UPPER EXTREMITIES: upper extremities are grossly normal. LOWER EXTREMITIES: No pitting edema. NEURO EXAM: Normal sensorium, cranial nerves II-XII grossly intact, normal speech, no gross weakness of arms, no gross weakness of legs. No drift. Finger to nose intact. Gross sensation intact. MEDICAL DECISION MAKING: Patient is a 74-year-old male receiving chemotherapy who presents to the ER for fevers today of 104. IV was established blood work was obtained. IV was established blood work was obtained. Labs show leukocytosis of 11,000. Mild anemia 10. BMP with mild hyponatremia at 131. Lactate was normal. Troponin was negative. Pro-Ronny was elevated at 3.9. UA was clean. Chest x-ray with no pneumonia. Viral panel was negative. He was given IV fluids and IV antibiotics. He was updated bedside. Due to his immunocompromise state he was discussed with the hospitalist for further evaluation management and treatment of his pneumonia. Consults/Care Managements Discussions: Per [facility] Triage Nursing notes reviewed. Limited review of prior medical records performed Vital Signs: reviewed and remarkable for no significant abnormalities Differential diagnosis: Differential diagnosis includes etiologies such as sepsis, UTI, pneumonia, metabolic, electrolyte abnormalities, cardiac sources, intracerebral event, toxicologic, neurological, as well as others were entertained. ER treatment provided: See below Diagnostics interpreted by me include EKG and cardiac monitoring as listed below: -Cardiac Monitoring: An order was placed for continuous cardiac monitoring. The monitor shows a rate of 99 with sinus rhythm. -ECG: Sinus rhythm rate of 92 Normal axis No PVCs QTc 437 -Laboratory studies:Interpreted by me as stated above in MDM and shown below. Imaging studies: Xrays: As interpreted by me: Portable AP upright 1 view of the chest shows pneumonia CTs show: none Procedures:none Critical Care: None Past Med/Surg History Problem List (Updated 04/18/24 @ 19:36 by Surinder Antunez DO) Leukocytosis (Acute) Anemia (Acute) Pneumonia (Acute) Colon polyps Encounter for pre-operative examination Dyslipidemia (Acute) Onychomycosis of toenail (Acute) Proteinuria (Acute) Tubular adenoma of colon (Acute) Encounter for pre-operative examination Anemia Pancreatic mass Fever (Acute) Pancreatic mass Scoliosis (Acute) Insomnia (Acute) Hypertension (Acute) Controlled off meds per pt DVT of leg (deep venous thrombosis) (Acute) 2018, previously on Eliquis (since discontinued), no issues since Chronic osteoarthritis (Acute) Anxiety (Acute) Medical History Medical marijuana use CAPSULES 4-5 TIMES PER WEEK COPD (chronic obstructive pulmonary disease) with emphysema CT SCAN SHOWED MILD--HAS NOT FOLLOWED UP YET-- DENIES SYMPTOMS History of pancreatic cancer FOLLOWS W/ DR GARCIA W/ [facility] Alcohol abuse Hyperlipidemia Meds on hold r/t liver function per pt Surgical History History of biliary duct stent placement Hx of cataract extraction B/L Hx of rotator cuff surgery Hx of arthroscopy of knee History of Whipple procedure 07/2021- DONE AT [facility]- CHEMO AT [facility] FROM 09/14-02/2022 Hx of tonsillectomy Hx of colonoscopy Family History Other No family history of adverse response to anesthesia Social History Smoking Status: Never smoker Second Hand Exposure: No; Do You Dip or Chew Tobacco: No; Hx Alcohol Use: Yes Alcohol type: beer Hx Substance Use: Yes (MARIJUANA CAPSULES 4-5 - ADVISED) Last Used Substance Other:: medical jeromy card uses ocas Preferred Language: Albanian Communication Ability: Effective Radarman Required: No Beliefs That Will Affect Care: None Current Living Situation: Spouse current occupational status: employed 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 Feels Safe at Home: Yes Assistive Devices: Glasses Allergies Allergies Allergy/AdvReac Type Severity Reaction Status Date / Time No Known Allergies Allergy Verified 04/18/24 17:26 Home Meds Home Medications Medication Instructions Recorded Confirmed Medical Marijuana 1 cap PO UD PRN NEEDED 09/10/22 04/18/24 multivitamin 1 tab PO QAM 09/10/22 04/18/24 pantoprazole 40 mg tablet,delayed 40 mg PO QAM 09/10/22 04/18/24 release alprazolam 1 mg tablet 1 mg PO HS Insomnia 04/18/24 04/18/24 aspirin 81 mg tablet,delayed 81 mg PO DAILY 04/18/24 04/18/24 release atorvastatin 40 mg tablet 40 mg PO QAM 04/18/24 04/18/24 jbutal-aboyqpny-upmdfvi 1 cap PO TIDM 04/18/24 04/18/24 3,000-9,500-15,000 unit capsule, delayed rel (Creon) sotorasib 120 mg tablet (Lumakras) 960 mg PO QAM 04/18/24 04/18/24 trazodone 100 mg tablet 100 mg PO HS Insomnia 04/18/24 04/18/24 Results & Data (ED) Vital Signs Vital Signs - 24 hr 04/18/24 15:40 04/18/24 16:05 04/18/24 17:00 Temperature 36.8 C Temperature Source Temporal Artery Scan Pulse Rate 99 H 99 H 82 Pulse Rate from SpO2 Sensor 84 Pulse Rhythm Regular Respiratory Rate 20 20 21 Blood Pressure 131/85 120/80 Blood Pressure Mean 100 93 Pulse Oximetry 99 99 98 Oxygen Delivery Method Room Air Room Air Sepsis Recent Fever Within 48 Hours No Sepsis New/Unexplained Change in Mental Status N/A Sepsis Action Taken by Nursing No Action Required 04/18/24 17:02 04/18/24 18:00 Temperature Temperature Source Pulse Rate 79 75 Pulse Rate from SpO2 Sensor Pulse Rhythm Respiratory Rate 21 Blood Pressure 119/67 Blood Pressure Mean 84 Pulse Oximetry 98 Oxygen Delivery Method Sepsis Recent Fever Within 48 Hours Sepsis New/Unexplained Change in Mental Status Sepsis Action Taken by Nursing Laboratory Data 04/18/24 16:16 04/18/24 16:16 Lab Results 04/18/24 04/18/24 Range/Units 16:16 16:23 WBC 11.22 H (4.8-10.8) K/ul RBC 3.67 L (4.70-6.10) M/uL Hgb 10.7 L (14.0-18.0) g/dl Hct 32.9 L (42.0-52.0) % MCV 89.6 (80.0-100.0) fL MCH 29.2 (25.0-34.0) pg MCHC 32.5 (32.0-36.0) g/dL RDW Std Deviation 53.7 H (36.4-46.3) fL RDW Coeff of Gricelda 16.6 H (11.5-14.5) % Plt Count 169 (130-400) K/uL MPV 9.4 (9.4-12.4) fL Immature Gran % (Auto) 0.4 % Neut % (Auto) 83.5 % Lymph % (Auto) 5.5 % Kershaw % (Auto) 9.6 % Eos % (Auto) 0.6 % Baso % (Auto) 0.4 % Neut # (Auto) 9.37 H (1.40-6.50) K/uL Lymph # (Auto) 0.62 L (1.20-3.40) K/uL Kershaw # (Auto) 1.08 H (0.11-0.59) K/uL Eos # (Auto) 0.07 (0.00-0.50) K/uL Baso # (Auto) 0.04 (0.00-0.20) K/uL Immature Gran # (Auto) 0.04 (0.01-0.20) K/uL Sodium 131 L (136-145) mmol/L Potassium 4.0 (3.5-5.1) mmol/L Chloride 97 L (98-107) mmol/L Carbon Dioxide 27 (21-32) mmol/L Anion Gap 7 (3-11) BUN 19 (6-23) mg/dl Creatinine 1.12 (0.6-1.4) mg/dl Est Cr Clr Drug Dosing 52.2 ml/min Est GFR ( Amer) 75.1 ml/min Est GFR (Non-Af Amer) 64.8 ml/min BUN/Creatinine Ratio 17.0 (10-20) Glucose 232 H (70-99(Fasting)) mg/dl Lactate 1.3 (0.4-2.0) mmol/L Calcium 8.5 L (8.6-10.3) mg/dl Magnesium 1.7 (1.7-2.4) mg/dl Total Bilirubin 0.7 (0.2-1.0) mg/dl Direct Bilirubin 0.2 (0-0.2) mg/dl AST 36 (13-39) U/L ALT 23 (7-52) U/L Alkaline Phosphatase 109 H (34-104) U/L Troponin I High Sens 8.9 (0-20) pg/ml Total Protein 7.0 (6.0-8.3) gm/dl Albumin 3.9 (3.4-5.0) gm/dl Procalcitonin 3.91 H (0-0.5) ng/ml Urine Color Yellow Urine Appearance Clear (Clear) Urine pH 5.5 (4.5-7.5) Ur Specific Mer[place] 1.008 (1.000-1.030) Urine Protein Trace H (Negative) Urine Glucose (UA) Negative (Negative) Urine Ketones Negative (Negative) Urine Blood Negative (Negative) Urine Nitrite Negative (Negative) Urine Bilirubin Negative (Negative) Urine Urobilinogen Negative (Negative) Ur Leukocyte Esterase Negative (Negative) Urine WBC (Auto) 0-5 (0-5) /hpf Urine RBC (Auto) 0-2 (0-2) /hpf U Hyaline Cast (Auto) 0-2 (0-2) /lpf U Epithel Cells (Auto) 0-2 (0-2) /hpf Urine Bacteria (Auto) None Seen (None Seen) Adenovirus (PCR) Not Detected (NotDetected) B. pertussis DNA (PCR) Not Detected (NotDetected) B.parapertussis DNA PCR Not Detected (NotDetected) C. pneumoniae DNA (PCR) Not Detected (NotDetected) Coronavirus OC43 (PCR) Not Detected (NotDetected) Coronavirus HKU1 (PCR) Not Detected (NotDetected) Coronavirus 229E (PCR) Not Detected (NotDetected) SARS-CoV-2 (PCR) Not Detected (NotDetected) Coronavirus NL63 (PCR) Not Detected (NotDetected) Human Metapneumovir PCR Not Detected (NotDetected) Influenza Type A (PCR) Not Detected (NotDetected) Influenza Type B (PCR) Not Detected (NotDetected) M. pneumoniae (PCR) Not Detected (NotDetected) Parainfluenza 1 (PCR) Not Detected (NotDetected) Parainfluenza 2 (PCR) Not Detected (NotDetected) Parainfluenza 3 (PCR) Not Detected (NotDetected) Parainfluenza 4 (PCR) Not Detected (NotDetected) RSV (PCR) Not Detected (NotDetected) Entero/Rhino (PCR) Not Detected (NotDetected) Administered Medications Discontinued Medications Sodium Chloride (Nss) 1,000 mls @ 999 mls/hr IV .Q1H1M ONE Stop: 04/18/24 16:55 Last Infusion: 04/18/24 17:39 Dose: Infused Documented By: Admin: 04/18/24 16:34 Dose: 999 mls/hr Documented By: DRE Cefepime HCl (Maxipime) 2,000 mg in 20 mls @ 5 mls/min IV NOW STA; Protocol Stop: 04/18/24 17:01 Last Admin: 04/18/24 17:13 Dose: 5 mls/min Documented By: DRE Azithromycin 500 mg/ Dextrose 255 mls @ 127.5 mls/hr IV NOW STA Stop: 04/18/24 18:57 Last Admin: 04/18/24 17:33 Dose: 127.5 mls/hr Documented By: DRE Ioversol (Optiray 320 125ml) 118 ml IV ONCE ONE Stop: 04/18/24 18:28 Last Admin: 04/18/24 18:27 Dose: 118 ml Documented By: KANDY Imaging Data Radiologist's Impression: Chest X-Ray 04/18/24 15:55 XR chest 1V portable HISTORY: Sepsis COMPARISON: Chest 07/15/2021. FINDINGS: There is mild volume loss within the right hemithorax. This could be due to old postoperative change. There is a right perihilar lobular density measuring 3.6 cm with a patchy right infrahilar density. Blunting the right lateral costophrenic sulcus is likely due to scarring. A right jugular Port-A-Cath remains in the SVC. The left lung is clear. The heart is normal in size. No evidence for pulmonary edema. IMPRESSION: 1. Right perihilar 3.2 cm lobular density with a patchy right infrahilar density. This could represent a pneumonia. A 1-2 month chest x-ray follow-up recommended to ensure resolution and to exclude the possibility of an underlying pulmonary lesion. 2. Volume loss within the right hemithorax with blunting of the right lateral costophrenic sulcus which favors scarring. This could be due to old postoperative change. ACT 112: Positive. There are findings on this exam that require communication between the performing entity and the patient following Patient Test Result Information Act ([place] Act 112) guidelines. Electronically signed by: Juan Chandler M.D. 04/18/2024 4:52 PM Chest CTA 04/18/24 17:56 CHEST CTA for PULMONARY ARTERIES CT DOSE: 438.17 mGy.cm HISTORY: Abnormal chest x-ray. PE, lung mass TECHNIQUE: Multiaxial CT images of the chest were performed following the intravenous administration of contrast to evaluate the pulmonary arteries. 3D/Maximal intensity projection images were also obtained. Sagittal and coronal reformations were also reviewed. A dose lowering technique was utilized adhering to the principles of ALARA. COMPARISON STUDY: Chest 04/18/2024. FINDINGS: Normal caliber thoracic aorta with no evidence for a dissection. No filling defects within the pulmonary arteries to suggest a pulmonary embolus. Moderate to severe coronary artery calcifications are noted. A right jugular Port-A-Cath terminates at the superior cavoatrial junction. A few mildly enlarged right paratracheal and right hilar lymph nodes. These are likely reactive. No left hilar lymphadenopathy. The heart is normal in size. No pleural or pericardial effusions. There is a small hiatus hernia. Limited views of the upper abdomen demonstrate a normal spleen and adrenal glands. Pneumobilia is noted. As a partially visualized stent within the left intrahepatic bile ducts. Postoperative changes at the distal stomach which are partially visualized. No suspicious lytic or blastic osseous lesions. No pneumothorax. The central airways are patent. There are few scattered subcentimeter nodules within the left lung measuring up to 3 mm. There are multifocal patchy airspace opacities within the right upper lobe, right middle lobe, right lower lobe. This likely represents a pneumonia. IMPRESSION: 1. No evidence for pulmonary embolus. 2. Multifocal patchy airspace opacities within the right lung which favors a pneumonia. 1-2 month chest x-ray follow-up recommended to ensure resolution. 3. A few scattered indeterminate pulmonary nodules within the left lung measuring up to 3 mm. Follow-up recommended below. 4. Mild right paratracheal and right hilar lymphadenopathy. This may be reactive. 5. Additional findings as described above. Please refer to below summary of Fleischner criteria recommendations for follow- up of incidental CT nodules (Juan Miguel Sears, Guidelines for management of small pulmonary nodules detected on CT scans: A statement from the Fleischner Society, Radiology 237: [phone].) SOLID NODULES Solitary nodule size: <6 mm * Low risk patients: no follow-up needed * high risk patients: optional CT at 12 months Solitary nodule size: 6-8 mm * Low risk patients: follow-up at 6-12 months, then consider further follow-up at 18-24 months * high risk patients: initial follow-up CT at 6-12 months and then at 18-24 months if no change Solitary nodule size: >8 mm * either low or high risk patients - consider follow-up CT at 3 months, and/or CT-PET, and/or biopsy Multiple nodules size: <6 mm * Low risk patients: no routine follow-up * high risk patients: optional CT at 12 months Multiple nodules size: 6-8 mm * Low risk patients: follow-up at 3-6 months, then consider further follow-up at 18-24 months * high risk patients: follow-up at 3-6 months, then at 18-24 months if no change Multiple nodules size: >8 mm * Low risk patients: follow-up at 3-6 months, then consider further follow-up at 18-24 months * high risk patients: follow-up at 3-6 months, then at 18-24 months if no change Note: newly detected indeterminate nodule in persons 35 years of age or older. * Low risk patients: minimal or absent history of smoking and/or other known risk factors * high risk patients: history of smoking or of other known risk factors (e.g. first degree relative with lung cancer, or exposure to asbestos, radon, uranium) * if a nodule up to 8 mm is partly solid or is ground glass further follow-up is required after 24 months to exclude possible slow growing adenocarcinoma (MARY JO) SUBSOLID NODULES Solitary pure ground-glass nodule * nodule size <6 mm - no CT follow-up required * nodule size >=6 mm - follow-up CT at 6-12 months, then every 2 years until 5 years Solitary part-solid nodule * nodule size <6 mm - no CT follow-up required * nodule size >=6 mm - follow-up CT at 3-6 months. If unchanged, and solid component remains <6 mm, then annual follow-up for 5 years Multiple subsolid nodules * nodule size <6 mm - follow-up CT at 3-6 months, consider further follow-up at 2 and 4 years if stable * nodule size >=6 mm - follow-up CT at 3-6 months, subsequent management based on the most suspicious nodule(s) ACT 112: Positive. There are findings on this exam that require communication between the performing entity and the patient following Patient Test Result Information Act ([place] Act 112) guidelines. Electronically signed by: Juan Chandler M.D. 04/18/2024 6:47 PM Discharge Plan Visit Data Chief Complaint: Laceration/Cut (Non-Suture) Stated Complaint: FEVER, LAC ON RT KNEE ED Provider: Surinder Antunez Discharge Problem: Pneumonia, Anemia, Leukocytosis Patient Disposition: Admitted As Inpatient Discharge Instructions Interventions: ED Discharge Assessment Last Done: 04/18/24 19:17 Discharge Problem: Pneumonia Qualifiers: Pneumonia type: due to unspecified organism Laterality: unspecified laterality Lung location: unspecified part of lung Qualified Code(s): J18.9 - Pneumonia, unspecified organism Anemia Qualifiers: Anemia type: unspecified type Qualified Code(s): D64.9 - Anemia, unspecified Leukocytosis Qualifiers: Leukocytosis type: unspecified Qualified Code(s): D72.829 - Elevated white blood cell count, unspecified
[2024-04-18] MEDS: SODIUM CHLORIDE 0.9% 1,000 ML IV ONE (16:34)
[2024-04-18 16:36] LABS: Appearance Urine Clear (Clear); Bacteria Urine Automated None Seen (None Seen); Bilirubin Urine Negative (Negative); Blood Urine Negative (Negative); Cast Urine Automated 0-2 /lpf (0-2); Color Urine Yellow; Epithelial Cell Urine Auto 0-2 /hpf (0-2); Glucose Urine UA Negative (Negative); Ketones Urine Negative (Negative); Leukocyte Esterase Urine Negative (Negative); Nitrite Urine Negative (Negative); Protein Urine Trace (Negative); RBC Urine Automated 0-2 /hpf (0-2); Specific Gravity Urine 1.008 (1.000-1.030); Urobilinogen Urine Negative (Negative); WBC Urine Automated 0-5 /hpf (0-5); pH Urine 5.5 (4.5-7.5)
[2024-04-18 16:37] LABS: Basophils # (auto) 0.04 K/uL (0.00-0.20); Basophils % (auto) 0.4 %; Eosinophils # (auto) 0.07 K/uL (0.00-0.50); Eosinophils % (auto) 0.6 %; Hematocrit (blood only) 32.9 % (42.0-52.0); Hemoglobin 10.7 g/dl (14.0-18.0); Immature Granulocytes # (auto) 0.04 K/uL (0.01-0.20); Immature Granulocytes % (auto) 0.4 %; Lymphocytes # (auto) 0.62 K/uL (1.20-3.40); Lymphocytes % (auto) 5.5 %; Mean Corpuscular Hemoglobin 29.2 pg (25.0-34.0); Mean Corpuscular Hgb Conc 32.5 g/dL (32.0-36.0); Mean Corpuscular Volume 89.6 fL (80.0-100.0); Mean Platelet Volume 9.4 fL (9.4-12.4); Monocytes # (auto) 1.08 K/uL (0.11-0.59); Monocytes % (auto) 9.6 %; Neutrophils # (auto) 9.37 K/uL (1.40-6.50); Neutrophils % (auto) 83.5 %; Platelet Count 169 K/uL (130-400); RDW Coefficient of Variation 16.6 % (11.5-14.5); RDW Standard Deviation 53.7 fL (36.4-46.3); Red Blood Count 3.67 M/uL (4.70-6.10); White Blood Count 11.22 K/ul (4.8-10.8)
[2024-04-18 16:51] LABS: Albumin Level 3.9 gm/dl (3.4-5.0); Bilirubin Direct 0.2 mg/dl (0-0.2); Bilirubin,Total 0.7 mg/dl (0.2-1.0); Calcium 8.5 mg/dl (8.6-10.3); Creatinine Clr Calc Pharmacy 52.2 ml/min; Est GFR (African American) 75.1 ml/min; Est GFR (Non-African American) 64.8 ml/min; Magnesium 1.7 mg/dl (1.7-2.4)
--- NOTE | 2024-04-18 16:54 | XRay Report ---
XR chest 1V portable HISTORY: Sepsis COMPARISON: Chest 07/15/2021. FINDINGS: There is mild volume loss within the right hemithorax. This could be due to old postoperati ve change. There is a right perihilar lobular density measuring 3.6 cm with a patchy right infrahilar density. Blunting the right lateral costophrenic sulcus is likely due to scarring. A right jugular P ort-A-Cath remains in the SVC. The left lung is clear. The heart is normal in size. No evidence for p ulmonary edema. IMPRESSION: 1. Right perihilar 3.2 cm lobular density with a patchy right infrahilar density. This could represen t a pneumonia. A 1-2 month chest x-ray follow-up recommended to ensure resolution and to exclude the possibility of an underlying pulmonary lesion. 2. Volume loss within the right hemithorax with blunting of the right lateral costophrenic sulcus whi ch favors scarring. This could be due to old postoperative change. ACT 112: Positive. There are findings on this exam that require communication between the performing entity and the patient following Patient Test Result Information Act ([place] Act 112) guidelines. Electronically signed by: Juan Chandler M.D. 04/18/2024 4:52 PM
[2024-04-18 16:55] LABS: Troponin I High Sensitivity 8.9 pg/ml (0-20)
[2024-04-18] MEDS: CEFEPIME 2,000 MG/20 ML VIAL IV STA (17:13)
[2024-04-18] MEDS: AZITHROMYCIN 500 MG in DEXTROSE 5% 250 ML IV STA (17:33)
[2024-04-18 17:37] LABS: Adenovirus PCR Not Detected (NotDetected); Bordetella parapertussis PCR Not Detected (NotDetected); Bordetella pertussis PCR Not Detected (NotDetected); Chlamydia pneumoniae PCR Not Detected (NotDetected); Coronavirus 229E PCR Not Detected (NotDetected); Coronavirus CoV-2 (COVID19)PCR Not Detected (NotDetected); Coronavirus HKU1 PCR Not Detected (NotDetected); Coronavirus NL63 PCR Not Detected (NotDetected); Coronavirus OC43PCR Not Detected (NotDetected); Human Metapneumovirus PCR Not Detected (NotDetected); Influenza A PCR Not Detected (NotDetected); Influenza B PCR Not Detected (NotDetected); Mycoplasma pneumoniae PCR Not Detected (NotDetected); Parainfluenza Virus 1 PCR Not Detected (NotDetected); Parainfluenza Virus 2 PCR Not Detected (NotDetected); Parainfluenza Virus 3 PCR Not Detected (NotDetected); Parainfluenza Virus 4 PCR Not Detected (NotDetected); Respiratory Syncytial VirusPCR Not Detected (NotDetected); Rhinovirus/Enterovirus PCR Not Detected (NotDetected)
[2024-04-18] MEDS: OPTIRAY 320 125ml IV ONE (18:27)
--- NOTE | 2024-04-18 18:47 | History & Physical Report ---
Date of Service April 18, 2024 Assessment & Plan (1) Pneumonia: (2) Metastasis to liver: (3) Pancreatic cancer: (4) Dyslipidemia: (5) Anxiety: (6) Hypertension: (7) Insomnia: Plan This is a 74-year-old male with PMH of history of pancreatic cancer status post Whipple at [facility], metastasis to the liver on chemo, hypertension, CAD, heterozygous factor V Leiden mutation, alcohol dependence in remission, insomnia and other medical problems listed below who presents from home with fever and cough and was found to have pneumonia. Please see Dr. Augustin' addendum for plan details. DVT Ppx: SQ lovenox Code status: FULL PCP: Nithya Dispo: admitted to [facility] I spent a total of 35 minutes coordinating, documenting, and providing care for this patient excluding time spent in the performance of separately billed services. History of Present Illness Chief Complaint: fever Primary Care Provider: Sergio Barriga MD This is a 74-year-old male with PMH of history of pancreatic cancer status post Whipple at [facility], metastasis to the liver on chemo, hypertension, CAD, heterozygous factor V Leiden mutation, alcohol dependence in remission, insomnia and other medical problems listed below who presents from home with fever and cough. Was walking his dog earlier today and felt lightheaded. Took his temperature when he returned home and it was 100.1 F. Took a nape and upon waking retook and it was 104 F. Patient has cough but states he has been chronically. Denies any headache, chest pain, nausea, vomiting, diarrhea, constipation, or urinary symptoms. No known sick contacts. Has been taking all medications as prescribed. Current chemo regimen is gemcitabine abraxane every other week and Lumakras PO daily. Allergies Allergy/AdvReac Type Severity Reaction Status Date / Time No Known Allergies Allergy Verified 04/18/24 17:26 Home Medications Medication Instructions Recorded Confirmed Type Medical Marijuana 1 cap PO UD PRN NEEDED 09/10/22 04/18/24 History multivitamin 1 tab PO QAM 09/10/22 04/18/24 History pantoprazole 40 mg tablet,delayed 40 mg PO QAM 09/10/22 04/18/24 History release alprazolam 1 mg tablet 1 mg PO HS Insomnia 04/18/24 04/18/24 History aspirin 81 mg tablet,delayed 81 mg PO DAILY 04/18/24 04/18/24 History release atorvastatin 40 mg tablet 40 mg PO QAM 04/18/24 04/18/24 History nbgmed-[id number]-[id number] 1 cap PO TIDM 04/18/24 04/18/24 History 3,000-9,500-15,000 unit capsule, delayed rel (Creon) sotorasib 120 mg tablet (Lumakras) 960 mg PO QAM 04/18/24 04/18/24 History trazodone 100 mg tablet 100 mg PO HS Insomnia 04/18/24 04/18/24 History levofloxacin 750 mg tablet 750 mg PO DAILY 5 days #5 tabs 04/19/24 Rx Past Med/Surg History Problem List (Updated 04/18/24 @ 19:53 by Leana Guzman PA-C) Pancreatic cancer Metastasis to liver Anemia (Acute) Pneumonia (Acute) Dyslipidemia (Acute) Proteinuria (Acute) Tubular adenoma of colon (Acute) Anemia Fever (Acute) Scoliosis (Acute) Insomnia (Acute) Hypertension (Acute) Controlled off meds per pt DVT of leg (deep venous thrombosis) (Acute) 2018, previously on Eliquis (since discontinued), no issues since Chronic osteoarthritis (Acute) Anxiety (Acute) Medical History (Updated 04/18/24 @ 19:53 by Leana Guzman PA-C) Colon polyps Onychomycosis of toenail Medical marijuana use CAPSULES 4-5 TIMES PER WEEK COPD (chronic obstructive pulmonary disease) with emphysema CT SCAN SHOWED MILD--HAS NOT FOLLOWED UP YET-- DENIES SYMPTOMS History of pancreatic cancer FOLLOWS W/ DR ARMANDO W/ [facility] Alcohol abuse Hyperlipidemia Meds on hold r/t liver function per pt Surgical History History of biliary duct stent placement Hx of cataract extraction B/L Hx of rotator cuff surgery Hx of arthroscopy of knee History of Whipple procedure 07/2021- DONE AT 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 Physical Exam Physical Exam: Please see Dr. Augustin' addendum for physical exam. Results & Data Results & Data Vital Signs (Past 12 Hours) Vital Signs Temp Pulse Resp BP Pulse Ox O2 Del Method 04/18/24 18:00 75 21 119/67 98 04/18/24 17:02 79 04/18/24 17:00 82 21 120/80 98 04/18/24 16:05 99 H 20 99 Room Air 04/18/24 15:40 36.8 C 99 H 20 131/85 99 Room Air Laboratory Results Short CBC 04/18/24 Range/Units 16:16 WBC 11.22 H (4.8-10.8) K/ul Hgb 10.7 L (14.0-18.0) g/dl Hct 32.9 L (42.0-52.0) % Plt Count 169 (130-400) K/uL BMP 04/18/24 16:16 Sodium 131 L Potassium 4.0 Chloride 97 L Carbon Dioxide 27 BUN 19 Creatinine 1.12 Glucose 232 H Calcium 8.5 L Liver Function 04/18/24 Range/Units 16:16 Total Bilirubin 0.7 (0.2-1.0) mg/dl Direct Bilirubin 0.2 (0-0.2) mg/dl AST 36 (13-39) U/L ALT 23 (7-52) U/L Alkaline Phosphatase 109 H (34-104) U/L Albumin 3.9 (3.4-5.0) gm/dl Urine 04/18/24 Range/Units 16:16 Urine Color Yellow Urine Appearance Clear (Clear) Urine pH 5.5 (4.5-7.5) Ur Specific [place] 1.008 (1.000-1.030) Urine Protein Trace H (Negative) Urine Glucose (UA) Negative (Negative) Diagnostic Findings Chest X-Ray 04/18/24 15:55 XR chest 1V portable HISTORY: Sepsis COMPARISON: Chest 07/15/2021. FINDINGS: There is mild volume loss within the right hemithorax. This could be due to old postoperative change. There is a right perihilar lobular density measuring 3.6 cm with a patchy right infrahilar density. Blunting the right lateral costophrenic sulcus is likely due to scarring. A right jugular Port-A-Cath remains in the SVC. The left lung is clear. The heart is normal in size. No evidence for pulmonary edema. IMPRESSION: 1. Right perihilar 3.2 cm lobular density with a patchy right infrahilar density. This could represent a pneumonia. A 1-2 month chest x-ray follow-up recommended to ensure resolution and to exclude the possibility of an underlying pulmonary lesion. 2. Volume loss within the right hemithorax with blunting of the right lateral costophrenic sulcus which favors scarring. This could be due to old postoperative change. ACT 112: Positive. There are findings on this exam that require communication between the performing entity and the patient following Patient Test Result In [place] Act ([place] Act 112) guidelines. Electronically signed by: Juan Chandler M.D. 04/18/2024 4:52 PM Supervising Physician Co-Signing Physician Notes I have seen and discussed the case with the collaborating advanced practitioner. I agree with the above H&P. I have reviewed and confirmed the patients medical history, the findings on physical examination, and the patients diagnosis and treatment plan with Thomas JACOB and agree with the information documented. In short, Mr. Cramer is a 74 year old gentleman with history of pancreatic cancer s/p whipples in 2020 at , Heterozygous status for Factor V Leiden mutation c/b DVT, hemorrhoidal bleed prompting d/c Eliquis, UACS, HLD, HTN, CAD who is admitted for evaluation of fever iso immunocompromised patient. Patient states that he felt generally fatigued, took his temp noting 100.1 F then took a nap; however, upon awakening noted fever of 104 F. Denies cough with sputum, nausea, vomiting, diarrhea, urinary symptoms, sick contacts or other acute symptoms. Reports feeling better since presenting to ED. GENERAL APPEARANCE: AxOx4, generally well-appearing M, no acute distress. HEENT: NC, AT. MMM. EOMI, clear conjunctiva, oropharynx clear. NECK: Supple without lymphadenopathy. No stiffness or restricted ROM. right port, no signs of surrounding infection HEART: Normal rate and regular rhythm, normal S1/S1, no m/r/g LUNGS: CTAB, moving air well. No crackles or wheezes are heard. ABDOMEN: Soft, nontender, nondistended with good bowel sounds heard. BACK: No CVAT, no obvious deformity. EXTREMITIES: Without cyanosis, clubbing or edema. NEUROLOGICAL: Grossly nonfocal. Alert and oriented, moving all 4 extremities. CN not formally tested but appear grossly intact Skin: Warm and dry without any rash. small abrasion on right knee, no signs of superimposed infection OSH chart review: Biopsy from the right lobe of the liver > poorly differentiated adenocarcinoma consistent with known pancreatic primary.(08/21/2023) OSH CT C/A/P 07/24/23: IMPRESSION Chest: 1. Ill-defined ground-glass opacities scattered throughout the right lung, increased as compared to the prior exam, nonspecific, may represent infection or an inflammatory process. Consider continued surveillance. 2. The previously seen small pulmonary nodules are stable in size as detailed above. There is a new small nodule in the inferior right upper lobe measuring 0.4 cm. A follow up chest CT in 3 months is suggested for re-evaluation. 3. Stable mildly enlarged right hilar lymph node measuring 1.3 x 1.1 cm. No new enlarged mediastinal lymph nodes. 4. Mild diffuse esophageal wall thickening may be secondary to esophagitis. PET-CT scan done on 08/27/2023: -solitary right lobe of the liver hypermetabolic mass measuring 1.7 cm, SUV 8.0 -no other metabolic active disease noted anywhere else. -stable subcentimeter right middle lobe lung nodule which is not metabolic active. Biopsy from the right lobe of the liver > poorly differentiated adenocarcinoma consistent with known pancreatic primary.(08/21/2023) This admission CTA 04/18/2024 FINDINGS: Normal caliber thoracic aorta with no evidence for a dissection. No filling defects within the pulmonary arteries to suggest a pulmonary embolus. Moderate to severe coronary artery calcifications are noted. A right jugular Port-A-Cath terminates at the superior cavoatrial junction. A few mildly enlarged right paratracheal and right hilar lymph nodes. These are likely reactive. No left hilar lymphadenopathy. The heart is normal in size. No pleural or pericardial effusions. There is a small hiatus hernia. Limited views of the upper abdomen demonstrate a normal spleen and adrenal glands. Pneumobilia is noted. As a partially visualized stent within the left intrahepatic bile ducts. Postoperative changes at the distal stomach which are partially visualized. No suspicious lytic or blastic osseous lesions. No pneumothorax. The central airways are patent. There are few scattered subcentimeter nodules within the left lung measuring up to 3 mm. There are multifocal patchy airspace opacities within the right upper lobe, right middle lobe, right lower lobe. This likely represents a pneumonia. IMPRESSION: 1. No evidence for pulmonary embolus. 2. Multifocal patchy airspace opacities within the right lung which favors a p neumonia. 1-2 month chest x-ray follow-up recommended to ensure resolution. 3. A few scattered indeterminate pulmonary nodules within the left lung measuring up to 3 mm. Follow-up recommended below. 4. Mild right paratracheal and right hilar lymphadenopathy. This may be reactive. 5. Additional findings as described above. #Fever #Metastatic Pancreatic Adenocarcinoma - KRAS G12C #Immunocompromised s/p Whipple's procedure by Dr. Mike Westbrook on 08/07/2021 at [facility]; completed gemcitabine and Xeloda combination between 08/2021- 01/2022. Currently on gemcitabine Abraxane chemotherapy every other week (02/25/24 - ) and Sotorasib (Lumakras) 960 mg once a day (03/11/24 - ) Will reach out to Dr. Armando in am regarding ? off fever being post treatment v true infection (low suspicion given exam) ContinueCreon 2 tablets with meals Empiric with cefepime and azithro while infectious work up pends admit med tele WIll discuss if necessary to hold sotorasib with concern for infection #HTN #CAD - continue asa and statin #Heterozygous factor V Leiden #Prior DVT -left lower extremity DVT earlier in December 2018. brief anticoagulant treatment; left lower extremity DVT in late 2020. d/c Eliquis 2021 2/2 rectal bleeding related to hemorrhoids. Lovenox DVT ppx continue asa DVT lovenox admit med/tele I spent a total of 45 minutes coordinating, documenting, and providing care for this patient excluding time spent in the performance of separately billed services. All of the aforementioned completed outside of collaborating with the assigned advanced practitioner for a full treatment plan. I have reviewed the advanced practitioner's documentation, and I agree with, and take responsibility for the plan of care (1) Pneumonia Laterality: unspecified laterality Lung location: unspecified part of lung Pneumonia type: due to unspecified organism Qualified Code(s): J18.9 - Pneumonia, unspecified organism
--- NOTE | 2024-04-18 18:49 | CT Scan Report ---
CHEST CTA for PULMONARY ARTERIES CT DOSE: 438.17 mGy.cm HISTORY: Abnormal chest x-ray. PE, lung mass TECHNIQUE: Multiaxial CT images of the chest were performed following the intravenous administration of contrast to evaluate the pulmonary arteries. 3D/Maximal intensity projection images were also obta ined. Sagittal and coronal reformations were also reviewed. A dose lowering technique was utilized a dhering to the principles of ALARA. COMPARISON STUDY: Chest 04/18/2024. FINDINGS: Normal caliber thoracic aorta with no evidence for a dissection. No filling defects within the pulmonary arteries to suggest a pulmonary embolus. Moderate to severe coronary artery calcificati ons are noted. A right jugular Port-A-Cath terminates at the superior cavoatrial junction. A few mild ly enlarged right paratracheal and right hilar lymph nodes. These are likely reactive. No left hilar lymphadenopathy. The heart is normal in size. No pleural or pericardial effusions. There is a small h iatus hernia. Limited views of the upper abdomen demonstrate a normal spleen and adrenal glands. Pneu mobilia is noted. As a partially visualized stent within the left intrahepatic bile ducts. Postoperat miley changes at the distal stomach which are partially visualized. No suspicious lytic or blastic osse ous lesions. No pneumothorax. The central airways are patent. There are few scattered subcentimeter n odules within the left lung measuring up to 3 mm. There are multifocal patchy airspace opacities with in the right upper lobe, right middle lobe, right lower lobe. This likely represents a pneumonia. IMPRESSION: 1. No evidence for pulmonary embolus. 2. Multifocal patchy airspace opacities within the right lung which favors a pneumonia. 1-[address] x-ray follow-up recommended to ensure resolution. 3. A few scattered indeterminate pulmonary nodules within the left lung measuring up to 3 mm. Follow- up recommended below. 4. Mild right paratracheal and right hilar lymphadenopathy. This may be reactive. 5. Additional findings as described above. Please refer to below summary of Fleischner criteria recommendations for follow-up of incidental CT n odules (Juan Miguel Sears Guidelines for management of small pulmonary nodules detected on CT scans: A sta tement from the Fleischner Society, Radiology 237: [phone].) SOLID NODULES Solitary nodule size: <6 mm * Low risk patients: no follow-up needed * high risk patients: optional CT at 12 months Solitary nodule size: 6-8 mm * Low risk patients: follow-up at 6-12 months, then consider further follow-up at 18-24 months * high risk patients: initial follow-up CT at 6-12 months and then at 18-24 months if no change Solitary nodule size: >8 mm * either low or high risk patients - consider follow-up CT at 3 months, and/or CT-PET, and/or biopsy Multiple nodules size: <6 mm * Low risk patients: no routine follow-up * high risk patients: optional CT at 12 months Multiple nodules size: 6-8 mm * Low risk patients: follow-up at 3-6 months, then consider further follow-up at 18-24 months * high risk patients: follow-up at 3-6 months, then at 18-24 months if no change Multiple nodules size: >8 mm * Low risk patients: follow-up at 3-6 months, then consider further follow-up at 18-24 months * high risk patients: follow-up at 3-6 months, then at 18-24 months if no change Note: newly detected indeterminate nodule in persons 35 years of age or older. * Low risk patients: minimal or absent history of smoking and/or other known risk factors * high risk patients: history of smoking or of other known risk factors (e.g. first degree relative with lung cancer, or exposure to asbestos, radon, uranium) * if a nodule up to 8 mm is partly solid or is ground glass further follow-up is required after 24 m onths to exclude possible slow growing adenocarcinoma (MARY JO) SUBSOLID NODULES Solitary pure ground-glass nodule * nodule size <6 mm - no CT follow-up required * nodule size >=6 mm - follow-up CT at 6-12 months, then every 2 years until 5 years Solitary part-solid nodule * nodule size <6 mm - no CT follow-up required * nodule size >=6 mm - follow-up CT at 3-6 months. If unchanged, and solid component remains <6 mm, then annual follow-up for 5 years Multiple subsolid nodules * nodule size <6 mm - follow-up CT at 3-6 months, consider further follow-up at 2 and 4 years if sta ble * nodule size >=6 mm - follow-up CT at 3-6 months, subsequent management based on the most suspiciou s nodule(s) ACT 112: Positive. There are findings on this exam that require communication between the performing entity and the patient following Patient Test Result Information Act ([place] Act 112) guidelines. Electronically signed by: Juan Chandler M.D. 04/18/2024 6:47 PM
[2024-04-18] MEDS ORDERED: ONDANSETRON INJ 2 MG/ML 2 ML VIAL IV PRN (19:16)
[2024-04-18] MEDS ORDERED: ACETAMINOPHEN 325 MG TAB PO PRN (19:16)
[2024-04-18] MEDS ORDERED: POLYETHYLENE (MIRALAX) 17 GM PACK PO PRN (19:16)
[2024-04-18] MEDS: ALPRAZolam 0.5 MG TABLET PO SCH (20:50)
[2024-04-18] MEDS: ENOXAPARIN INJ 40 MG/0.4 ML SYR SQ SCH (20:50)
[2024-04-18] MEDS: traZODone HCL 100 MG TAB PO SCH (20:50)
--- OUTSIDE RECORDS SUMMARY | 2024-04-18 23:50 | External Medical Summary | Summary of Care ---
Author Name Unknown Organization [facility] Address [address] [facility] [address] Phone [phone] Care Team Providers Care Checker Loader Name Role Phone Sergio Barriga MD Primary Care Provider + Reason for Visit * Reason Comments Follow Up Return Encounter Details Date Type Department Care Team (Late st Contact Info) Description 04/07/2024 11:15 AM EDT Office Visit Hematology/Oncology State Shaina Garcia [address] [place] [id number] Dakota Armando MD [address] [facility] [address] [place] [id number] 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)*; 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); Factor 5 Leiden mutation, heterozygous (HCC) Allergies Active Allergy Reactions Criticality Noted Date Comments Lisinopril Cough Low 08/07/2019 documented as of this encounter (statuses as of 04/07/2024) Medications Medication Sig Dispensed Refills Start Date End Date Status Boost 100 Calorie Smart Oral Liquid Take by mouth. 0 Act miley Multi Vitamin Daily Oral Tablet Take by mouth. 0 Act miley Aspirin 81 MG Oral Tablet Delayed Release Take 1 Tablet by mouth in the morning. 0 Active Pancrelipase (Yrd-Kxrd-Arwb) [id number] UNIT Oral Capsule Delayed Release Particles (Creon 29584) 2 cap with meals, 1 with larger snack. (up to 8/day) 240 Capsule 11 09/10/2022 Active Continuation of patient use of medical marijuana is approved Inhale 1 Capsule by mouth as needed. 0 09/10/2022 Active Pantoprazole Sodium 40 MG Oral Tablet Delayed Release (Protonix) TAKE 1 TABLET BY MOUTH EVERY MORNING 90 Tablet 3 07/03/2023 Active Lidocaine-Prilocai ne 2.5-2.5 % External Cream (Emla)Indications: 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),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) APPLY TO SKIN OVER MEDIPORT & COVER 1HR PRIOR TO ACCESSING. 30 g 1 08/30/2023 Active Ondansetron HCl 8 MG Oral Tablet (Zofran)Indication s: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),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) Take 1 Tablet by mouth every 8 hours as needed for Nausea. 30 Tablet 3 08/30/2023 Active Prochlorperazine Maleate 10 MG Oral Tablet (Compazine)Indicat ions: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),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) Take 1 Tablet by mouth every 6 hours as needed for Nausea. 30 Tablet 3 08/30/2023 Active OLANZapine 10 MG Oral Tablet (ZyPREXA)Indicatio ns: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),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) Take 1 tablet by mouth before bed x4 nights starting day 1 of each chemo cycle 48 Tablet 0 08/30/2023 Active Loratadine 10 MG Oral Tablet (Claritin)Indicati ons: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),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) Take 1 tablet daily x5 days starting the day of chemo pump disconnect 60 Tablet 0 09/03/2023 Active Atorvastatin Calcium 40 MG Oral Tablet (Lipitor) TAKE 1 TABLET BY MOUTH EVERY MORNING 90 Tablet 2 09/25/2023 Active traZODone HCl 100 MG Oral Tablet (Desyrel)Indicatio ns:Persistent insomnia TAKE 1 TABLET BY MOUTH AT BEDTIME 90 Tablet 3 12/19/2023 Active Sotorasib 120 MG Oral TabletIndications: 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 With or without food. 240 Tablet 5 02/24/2024 Active ALPRAZolam 1 MG Oral Tablet (xaNAX)Indications :Chronic insomnia TAKE ONE TABLET BY MOUTH NIGHTLY AT BEDTIME NEEDED FOR SLEEP 30 Tablet 2 03/28/2024 Active documented as of this encounter (statuses as of 04/07/2024) Active Problems Problem Noted Date Diagnosed Date Malignant neoplasm of body of pancreas 3 Metastasis to liver 08/30/2023 Encounter for antineoplastic chemotherapy 2022 History of carcinoma of pancreas 07/18/2023 Post-viral cough syndrome 07/09/2023 Upper airway cough syndrome 07/09/2023 History of 2019 novel coronavirus disease (COVID -19) 10/16/2022 Coronary artery disease invo lving [place] coronary artery of [place] heart without angina pectoris 08/20/2022 Overview: Severe noted on 08/16 CT chest. Degenerative arthritis of thumb, right 2 Localized edema 07/18/2022 Alcohol dependence in remission 01/12/2022 Malignant neoplasm of pancreas 07/21/2021 Obstructive jaundice 07/16/2021 History of DVT (deep vein thrombosis) 07/30/2019 Well adult exam 05/18/2019 Overview: 08/17 recurrent CA 02/14 PFT WNl 08/2022 colon--suboptimal prep --Repeat exam in 12 to 18 months 2 day bowel prep with next exam.. Lifelong Eliquis recommended (see Dr Armando note 2021) ,but patient stopped it.. 05/13 PSA 0.56, NEEDS Q2y. Gluc 85, LDL 100, Hep C neg, +Urine prot 01/13 dx DVT After 6h isadora. 04/12 recl nearly occlusive DVT in distal popliteal vein also anterior tib, post tib and peroneal veins, similar to 01/13. 05/13 labs Anti thr III WNL, Prot C WNL, Prot S WNL, antiphos lipids WNL Factor V+heteroqygous. 04/10 colon-Dr Eller [facility] 2 polyps 1 tubular adenoma. Kevin 6y 2013 sleep study [facility] WNL [address] Elena [facility] Essential hypertension with goal blood pressure less than 140/90 05/18/2019 Heterozygous factor V Leiden mutation 05/18/2019 Overview: 05/13 R506Q gene. Chronic insomnia 05/18/2019 Hx of actinic keratosis 02/27/2017 HX-MALIG SKIN MELANOMA - MIS L upper back 09/0208/30/2010 Family history of other cardiovascular diseases 06/18/2002 Overview: ICD-10 update of inactive term Other proteinuria 06/18/2002 Dyslipidemia, goal to be determined 10/30/2001 Family history of malignant neoplasm of prostate 10/30/2001 documented as of this encounter (statuses as of 04/07/2024) Resolved Problems Problem Noted Date Diagnosed Date Resolved Date COPD, mild 10/16/2022 03/07/2023 Overview: Per COPD GOLD Classification Pain and swelling of left lower leg 02/01/2022 07/18/2023 Acute deep vein thrombosis ( DVT) of left lower extremity, unspecified vein 10/09/20212021 Biliary obstruction due to malignant neoplasm 07/21/2007/18/2023 Pancreatic mass 07/16/2021 07/22/2021 Acute cholangitis 07/16/2021 01/12/2022 Alcohol abuse 08/07/2019 07/18/2023 Deep vein thrombosis (DVT) of lower extremity 05/12/20 19 07/30/2019 Overview: 01/13 dx date ? After 6h isadora. 04/12 recl nearly occlusive DVT in distal popliteal vein also anterior tib, post tib and peroneal veins, similar to 01/13. 05/13 labs Anti thr III WNL, Prot C WNL, Prot S WNL, antiphos lipids WNL Factor V+heteroqygous. FM [id number]-CYVW-AOITI DIS NEC documented as of this encounter (statuses as of 04/07/2024) Immunizations Name Administration Dates Next Due COVID-19 mRNA, LNP-s, No Pre serve, 2-Dose Series (Six Month Smiles) 01/13/2022,07/21/2021,02/01/2021,01/04 COVID-19, MRNA-LNP, 23-24, P F, 30 MCG/0.3 mL, 12 YRS AND ABOVE, IM ([facility] 09/12/2023 Covid-19, Mrna, Lnp-s, Pf, B ivalent, 30 Mcg, IM, 12 yrs and above (Pfizer) 08/16/2022 HEP A - Hepatitis A (Adult > 18 yrs) 10/16/2022 Hepatitis B Vaccine, Recombi nant, Adjuvanted, 20 mcg/mL (Heplisav-B) 05/27/2023,11/27/2022 Hepatitis B, 20+ yrs 10/25/2022 Pneumococcal Conjugate Vacc, 13 Valent (Prevnar) 08/07/2019 Pneumococcal Polysaccharide PPV23 (Pneumovax) 08/12/2020 Seasonal Influenza Virus Vac cine, Unspecified Formulation 12/29/2019 Seasonal Influenza, PF, 6 M & above, IM , (FluLaval or Fluzone) 08/15/2020 Seasonal Influenza, Quadriva lent Hd (Fluzone Hd) 09/03/2023,08/13/2022,08/30/2021 TD, Preservative Free 07/21/1999 TDAP (age 11 and older)(Adacel) 04/11/2016 Varicella Zoster Vaccine (Adult) 03/22/2011 Zoster Vaccine Recombinant (Shingrix) 09/02/2019 ,06/01/2019 documented as of this encounter Social History Tobacco Use Types Packs/Day Years Used Date Smoking Tobacco: Never Smokeless Tobacco: Never Tobacco Cessation:Counseling Given: Not Answered Alcohol Use Standard Drinks/Week Comments Yes 0 (1 standard drink = 0.6 oz pure alcohol) 4 drinks/ day had stopped w/CA 2020, now rare. PHQ-2 Answer Date Recorded PHQ Adult Total Score 2 09/10/2022 Hunger Vital Sign Answer Date Recorded Within the past 12 months, y ou worried that your food would run out before you got the money to buy more. Never true 02/10/20 23 Within the past 12 months, t he food you bought just didn't last and you didn't have money to get more. Never true 02/09/2023 Sex and Gender Information Value Date Recorded Sex Assigned at Male 07/16/2022 9:05 AM EDT Gender Identity Male 07/16/2022 9:05 AM EDT Sexual Orientation Straight 07/16/2022 9: 05 AM EDT Job Start Date Occupation Industry Not on file Not on file Not on file documented as of this encounter Last Filed Vital Signs Vital Sign Reading Time Taken Comments Blood Pressure 129/79 04/07/2024 10:47 AM EDT Pulse 79 04/07/2024 10:47 AM EDT Temperature 36.3 C (97.4 F) 04/07/2024 10:47 AM E DT Respiratory Rate - - Oxygen Saturation 98% 04/07/2024 10:47 AM EDT Inhaled Oxygen Concentration - - Weight 63 kg (138 lb 14.4 oz) 04/07/2024 10:47 A M EDT Height - - Body Mass Index 20.51 03/03/2024 11:47 AM EDT documented in this encounter Functional Status Functional Status Response Date of Assess ment Are you deaf or do you have serious difficulty h earing? No 07/16/2021 Are you blind or do you have serious difficulty seeing, even when wearing glasses? No 07/16/2021 Do you have serious difficul ty walking or climbing stairs? (5 years old or older) No 07/16/2021 Do you have difficulty dress ing or bathing? (5 years old or older) No 07/16/2021 Because of a physical, menta l, or emotional condition, do you have difficulty doing errands alone such as visiting a doctor s office or shopping? (15 years old or older) No 07/16/20 Cognitive Status Response Date of Assessm ent Because of a physical, menta l, or emotional condition, do you have serious difficulty concentrating, remembering, or making decisions? (5 years old or older) No 07/16/2021 documented as of this encounter Progress Notes * Dakota Armando MD - 04/07/2024 11:15 AM EDT Hematology/Oncology Outpatient Clinic note Angie Kimball [address] [place] [address] Name: Rafael Cramer Date: 03/17/2024 CHIEF COMPLAINT: Rafael Cramer is a 74 year old male here today for f/u visit today. 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 Heterozygous status for Factor V Leiden mutation -he had left lower extremity DVT earlier in December 2018. He was treated briefly with anticoagulant treatment -had another episode of left lower extremity DVT in late 2020. Restarted Eliquis. He stop Eliquis somewhere April 2022 when he had some rectal bleeding related to hemorrhoids. Presently he is not on any anticoagulant Treatment. He takes baby aspirin daily. Biopsy from the right lobe of the liver --> poorly differentiated adenocarcinoma consistent withknown pancreatic primary.(08/21/2023) - NGS--> KRAS G12C Genetic Clinic evaluation -->Negative 29 gene hereditary pancreatic cancer pane ( 12/26/2021). Cancer Staging Final pathology showed T2 N1 (01/17 lymph node positive for metastatic disease. Negative margin. DATE OF DIAGNOSIS: 07/17/21 TREATMENT HISTORY: -He underwent Whipple's procedure by Dr. Mike Westbrook on 08/07/2021 at [facility]. -He completed gemcitabine and Xeloda combination between 08/2021- 01/2022. mFOLFIRINOX every 14 days (09/17/23 - 02/07/24) - discontinued d/t disease progression CURRENT TREATMENT: gemcitabine Abraxane chemotherapy every other week (02/25/24 - ) Sotorasib (Lumakras) 960 mg once a day (03/11/24 - ) DIAGNOSTIC WORKUP: He was noticed to have painless jaundice earlier in June 2021, blood workup done on 07/04/2021 showed bilirubin level of 5.5, AST 401, ALT 481, Alkaline phosphatase 260. Ultrasound abdomen (07/06/2021: -hypoechoic pancreatic head mass measuring 1.3 x 1.6 x 1.8 cm. -intra and extrahepatic biliary ductal dilation with CBD measuring 1.[address] pancreas (07/10/2021) -2.3 x 2 cm pancreatic head mass. - No vascular involvement of the celiac artery/common hepatic artery or SMA. There is mild abutmentof proximal GDA. There is slightly more than 180 degrees tumor involvement of the proximal main portal vein at its confluence with associated mild vessel narrowing. No thrombus identified. EUS: Pancreatic head mass measuring 2.2 x 1.8 cm. Sonographic evidence suggested invasion into the portal vein. 2 abnormal lymph nodes visualized in the ermelinda hepatis region largest lymph node measuring 1.2 x 0.8 cm ERCP (07/12/2021) --> unable to cannulate CBD pancreatic duct. Biopsy from the pancreatic head mass --> nondiagnostic. Biopsy from the ermelinda hepatis lymph node --> nondiagnostic. Blood workup done on 07/15/2021: -AST 261, ALT 649, Alkaline phosphatase 344, bilirubin level 17.4. Another ERCP and EUS done on 07/17/2021: - metallic stent placement done. FNA from the pancreatic mass (07/17/2021) --> adenocarcinoma. -CA 19-9 level --> 114 (07/19/2021). CT chest, abdomen and pelvis (07/19/2021: 1. Hypoattenuating ill-defined pancreatic mass in the head/uncinate measuring approximately 2.2 x 2.2 cm with greater than 180 degree involvement of the main portal vein and the suspicious lymph nodes as described above. 2. Left perirectal 4.1 cm heterogeneously enhancing mass. 3. Interval placement of biliary stent with improvement in previously seen intra and extrahepatic biliary ductal dilation. 4. Nonspecific trace abdominal ascites. He underwent Whipple's procedure by Dr. Mike Westbrook on 08/07/2021 at [facility]. Final pathology: -invasive poorly differentiated pancreatic adenocarcinoma with focal squamous differentiation, 2.5 cm, -overall negative margin -perineural and lymphovascular invasion noted -2/ lymph nodes positive for metastatic disease. -T2 N1 OTHER IMPORTANT HISTORY: -history of melanoma involving the left scapular region History of left lower extremity DVT. (01/05/2019 and 04/21/2019). 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 Component Latest Ref Rng 12/31/2022 07/18/2023 07/31/2023 CA 19-9 <35.0 U/mL 7.8 195.2 (H) 262.0 (H) CT C/A/P 07/24/23: IMPRESSION Chest: 1. Ill-defined ground-glass opacities scattered throughout the right lung, increased as compared tothe prior exam, nonspecific, may represent infection or an inflammatory process. Consider continuedsurveillance. 2. The previously seen small pulmonary nodules are stable in size as detailed above. There is a newsmall nodule in the inferior right upper lobe measuring 0.4 cm. A follow up chest CT in 3 months issuggested for re-evaluation. 3. Stable mildly enlarged right hilar lymph node measuring 1.3 x 1.1 cm. No new enlarged mediastinal lymph nodes. 4. Mild diffuse esophageal wall thickening may be secondary to esophagitis. Abdomen/pelvis: 1. A new heterogeneous lesion in the right hepatic lobe measuring 1.8 x 1.5 cm, concerning for metastases. 2. Postoperative changes of Whipple procedure. 3. Stable small subcentimeter retroperitoneal and mesenteric lymph nodes. PET-CT scan done on 08/27/2023: -solitary right lobe of the liver hypermetabolic mass measuring 1.7 cm, SUV 8.0 -no other metabolic active disease noted anywhere else. -stable subcentimeter right middle lobe lung nodule which is not metabolic active. Biopsy from the right lobe of the liver --> poorly differentiated adenocarcinoma consistent withknown pancreatic primary.(08/21/2023) We could consider for modified FOLFIRINOX chemotherapy, reviewed with regarding treatment schedule side effect profile. He also received 2nd opinion from medical oncologist from [place] who agreed with treatment plan. Also recommending after 12 treatments with FOLFIRINOX, he may consider the clinical trial of G12C inhibitor. Interval History: Component Latest Ref Rng 11/04/2023 12/02/2023 12/23/2023 01/20/2024 02/25/2024 CA 19-9 <35.0 U/mL 310.0 (H) 446.4 (H) 461.2 (H) 540.8 (H) 538.3 (H) CT scan of chest, abdomen pelvis on 01/27/2024: -perirectal masses stable -hepatic segment 6 lesion slightly increased from 1.6 x 1.3 cm --> 2 x 1.9 cm -stable subcentimeter retroperitoneal mesenteric lymph nodes. -interval decrease in the consolidation within the right lateral lung base. -slightly increasing consultation along the inferior right upper lobe: -new low-attenuation nodular opacities within the right upper lobe. Dr Santiago from [place] spoke with me about his case. He is recommending to start gemcitabine and Abraxane chemotherapy every other week and also start KRAS G12C mutation target with LUMAKRAS ( Sotarasib) . Gemcitabine 1000 mg/m2, Abraxane at 125 mg/m2 every other week - Sotorasib (Lumakras) 960 mg once a day. Will start gemcitabine and Abraxane soon and whenever Sotorasib (Lumakras) is available, we will start that. HISTORY OF PRESENT ILLNESS: He has come the clinic for the follow-up, currently he is receiving gemcitabine Abraxane chemotherapy every 2 weekly, he is also on Sotorasib, overall tolerated well, some hair loss noted, mild tingling and numbness of the lower extremities to some extent upper extremities, stable neuropathy symptoms, no increasing nausea, no vomiting, diarrhea improved, stable weight around 138 lb, no new cardiac or pulmonary symptom, previously noted cough has improved, fever, no night sweats. No leg edema. No bleeding from any sites, no new thrombotic complications, he is on baby aspirin. No increasing headache. Past Medical History: Diagnosis Date Alcohol abuse 08/07/2019 Allergic disorder Allergy unspecified Asthma, severity to be determined Asthma Chronic insomnia 05/18/2019 Coronary artery disease involving [place] coronary artery of [place] heart without angina pectoris 08/20/2022 Severe noted on 08/16 CT chest. Deep vein thrombosis (DVT) of lower extremity (HCC) 05/12/201901/13 dx date After 6h isadora. 04/12 recl nearly occlusive DVT in distal popliteal vein also anterior tib, post tib and peroneal veins, similar to 01/13. 05/13 labs Anti thr III WNL, Prot C WNL, Prot S WNL, antiphos lipids WNL Factor V+heteroqygous. Dyslipidemia, goal LDL below 160 Hypercholesterolemia Essential hypertension with goal blood pressure less than 140/90 05/18/2019 Family history of malignant neoplasm of prostate 10/30/2001 Heterozygous factor V Leiden mutation (HCC) 05/18/201905/13 R506Q gene. Lumbago Low Back Syndrome Proteinuria Past Surgical History: Procedure Laterality Date CATARACT SURGERY,COMPLEX Bilateral Dr Mix COLONOSCOPY 04/02/2017 Dr Eller [facility] 2 polyps 1 tubular adenoma. COLONOSCOPY, DIAGNOSTIC (RECTUM) 09/14/2022 diverticulosis, fair prep, repeat 1 yr / [facility] COLORECTAL CANCER SCREEN;W/2006 EGD, FLEXIBLE,W/ENDOSCOPIC US 07/12/2021 pancreatic mass, GB sludge, CBD dilation, abnormal lymph nodes / [facility] EGD, W/ENDOSCOPIC US N/A 07/17/2021 ESOPHAGOGASTRODUODENOSCOPY (EGD), FLEXIBLE, TRANSORAL, ENDOSCOPIC ULTRASOUND performed by Guillermo Jones DO at [facility] ERCP 07/12/2021 ERCP, DIAGNOSTIC, SPECIMEN COLLECTION N/A 07/17/2021 ENDOSCOPIC RETROGRADE CHOLANGIOPANCREATOGRAPHY (ERCP) DIAGNOSTIC performed by Guillermo Jones [facility] INSER TUNN ACC DEV;5 YRS/OLDER Right 09/13/2023 INSERT TUNNELED CENTRAL VENOUS ACCESS WITH SUBQ PORT performed by Gary Rodriguez DO at OR [facility] IR BIOPSY 08/21/2023 KNEE ARTHROSCOPY/DEBRIDEMENT Left 07/12/[address] Zhu left partial medical meniscectomy & chondroplasty. REMOVE PANCREAS, PARTIAL (WHIPPLE) 08/07/[address]21 [place]ot assisted[address] Dr Mike Westbrook. REMOVE TONSILS & ADENOIDS, UNDER 12 Tonsillectomy/Adenoids,<12 Y/O SHOULDER ARTHROSCOPY/DEBRIDEMENT Left 08/31/2014 Dr Zhu +biceps tenotomy debride labrum, subacromial decompression & distal clavicle excision. 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 Tobacco Use Smoking status: Never Smokeless tobacco: Never Vaping Use Vaping Use: Never used Substance and Sexual Activity Alcohol use: Yes Comment: 4 drinks/ day had stopped /2020, now rare. Drug use: Yes Frequency: 5.0 times per week Types: Marijuana Comment: oral caps. for appetite, relaxation. Sexual activity: Yes Partners: Female Comment: . 2 stepchildren. COUNT INCLUDES THE [facility] & [place]. no grandkids Other Topics Concern Not on file Social History Narrative Likes gardening. Cabin in [facility]. Likes to weights, walking. Active [place] [employer] [place] [employer]. 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 Social Determinants of Health Financial Resource Strain: Not on file Food Insecurity: No Food Insecurity (02/09/2023) Hunger Vital Sign Worried About Running Out of Food in the Last Year: Never true Ran Out of Food in the Last Year: Never true Transportation Needs: Not on file Physical Activity: Not on file Stress: Not on file Social Connections: Not on file Intimate Partner Violence: Not on file Housing Stability: Not on file Review of patient's allergies indicates: Allergen Reactions Lisinopril Cough Current Outpatient Medications Medication Sig Dispense Refill Boost 100 Calorie Smart Oral Liquid Take by mouth. Multi Vitamin Daily Oral Tablet Take by mouth. Aspirin 81 MG Oral Tablet Delayed Release Take 1 Tablet by mouth in the morning. Pancrelipase (Vmj-Uurk-Mbcn) 53071-080[address] UNIT Oral Capsule Delayed Release Particles (Creon 28334) 2 cap with meals, 1 with larger snack. (up to 8/day) 240 Capsule 11 Continuation of patient use of medical marijuana is approved Inhale 1 Capsule by mouth as needed. Pantoprazole Sodium 40 MG Oral Tablet Delayed Release (Protonix) TAKE 1 TABLET BY MOUTH EVERY MORNING 90 Tablet 3 Lidocaine-Prilocaine 2.5-2.5 % External Cream (Emla) APPLY TO SKIN OVER MEDIPORT & COVER 1HR PRIOR TO ACCESSING. (Patient not taking: Reported on 12/17/2023) 30 g 1 Ondansetron HCl 8 MG Oral Tablet (Zofran) Take 1 Tablet by mouth every 8 hours as needed for Nausea. 30 Tablet 3 Prochlorperazine Maleate 10 MG Oral Tablet (Compazine) Take 1 Tablet by mouth every 6 hours as needed for Nausea. 30 Tablet 3 OLANZapine 10 MG Oral Tablet (ZyPREXA) Take 1 tablet by mouth before bed x4 nights starting day 1 of each chemo cycle 48 Tablet 0 Loratadine 10 MG Oral Tablet (Claritin) Take 1 tablet daily x5 days starting the day of chemo pump disconnect 60 Tablet 0 Atorvastatin Calcium 40 MG Oral Tablet (Lipitor) TAKE 1 TABLET BY MOUTH EVERY MORNING 90 Tablet 2 traZODone HCl 100 MG Oral Tablet (Desyrel) TAKE 1 TABLET BY MOUTH AT BEDTIME 90 Tablet 3 Sotorasib 120 MG Oral Tablet Take 960 mg by mouth in the morning. With or without food. 240 Tablet 5 ALPRAZolam 1 MG Oral Tablet (xaNAX) TAKE ONE TABLET BY MOUTH NIGHTLY AT BEDTIME NEEDED FOR SLEEP30 Tablet 2 No current facility-administered medications for this visit. REVIEW OF SYSTEMS: See HPI - otherwise negative OBJECTIVE: BP 129/79 (BP Site: Left Arm, BP Position: Sitting, BP Cuff Size: Regular) | Pulse 79 | Temp 36.3 C (97.4 F) (Tympanic) | Wt 63 kg (138 lb 14.4 oz) | SpO2 98% | BMI 20.51 kg/m | BSA 1.75 m PHYSICAL EXAM: ECOG: Performance Status 0 = 100% Normal Activity General Appearance: Normal - Healthy appearing patient in no acute distress HEENT: Normal - No oral or pharyngeal masses, ulceration or thrush noted Lymph Nodes: Normal - No palpable lymph nodes in the neck or supraclavicular areas Lungs/Thorax: Normal - Clear to auscultation Heart: Normal - Regular rate and rhythm, normal S1, S2, no appreciable murmurs Pulses/Extremities: Normal - 2+ throughout and symmetrical, no edema Abdomen: Normal - Soft, nontender, bowel sounds present, no appreciable hepatosplenomegaly, no palpable masses Neurologic: Normal - Grossly intact LABS: Blood workup done on 04/07/2024: -BUN/Creat: 13/1.0, Calcium 9.5, normal LFT other than alkaline phosphatase 147 -WBC 3300, H&H of , Platelet count of 563607, MCV 95. CA 19-9 Latest Ref Rng <35.0 U/mL 01/20/2024 540.8 (H) 02/25/2024 (started gemcitabine/Abraxane) 538.3 (H) 03/24/2024 219.2 (H) IMPRESSION/PLAN: Metastatic Pancreatic Adenocarcinoma - KRAS G12C Encounter for chemotherapy Current treatment plan: Gemcitabine and Abraxane chemotherapy every other week with KRAS G12C mutation target with LUMAKRAS ( Sotarasib) 960 mg once a day. Patient is tolerating treatment plan remarkably well with no significant adverse effects. Will closely monitor CIPN I reviewed his blood workup done earlier, CA 19-9 level dropped down from 530 --> 219 after starting the gemcitabine Abraxane. I would like to continue gemcitabine Abraxane as well as Sotorasib as we planned. Continue [place] pharmacy monitoring - appreciate recommendations Plan for restaging PET/CT s/p 3-4 months of therapy , he says that he is planning to have It done at [place]. CA19-9 monthly Continue Creon 2 tablets with meals Previous history of thrombotic complications, he decided to go off the Eliquis when he would hemorrhoidal bleeding. Currently he is on aspirin, he will continue that. I am planning to see him back in about [address] Dakota Armando Hem/Onc (This note was completed using the dictation program Fluency Direct. As such, there may be misspellings word substitutions, or other variations that should not change the essence of the clinical content of this encounter note. If there is need for further clarification, please direct questions to the provider listed above.) documented in this encounter Nursing Notes * Tracy June, MED ASSIST - 04/07/2024 10:49 AM EDT Patient identifed by name and birthdate Do you have any concerns about pain management for today's visit? No Living Will or Advance Directive for Health Care as noted on the problem list. [facility] is a way you can talk to your provider on line through e-mail. Would you like to sign up? I can activate it for you? ALREADY ACTIVE Filed Vitals: 04/07/24 1047 BP: 129/79 Pulse: 79 Temp: 36.3 C (97.4 F) TempSrc: Tympanic SpO2: 98% Weight: 63 kg (138 lb 14.4 oz) Patient was instructed to not get up on the exam table/exam chair until directed and assisted by their provider; patient is to remain seated in the chair/ wheelchair/ exam table/ exam chair for fall prevention and safety reasons. Patient is aware to have assistance to step down off exam table/exam chair with personnel. Patient voiced full comprehension of instructions. documented in this encounter Plan of Treatment Upcoming Encounters Date Type Department Care Team (Late st Contact Info) Description 04/21/2024 9:30 AM EDT Pharmacy Pharmacy Hematology Oncology [facility] [address] [place] [address] [facility] [place], [facility] Hem/Onc [address] [place] [address] 07/21/2024 1:45 PM EDT Office Visit Hematology/Oncology [facility] [address] [facility] [place] [phone] Dakota Armando MD [address] [facility] [place] [address] 07/24/2024 11:40 AM EDT Office Visit Family Practice [facility] [address] [place] [address] Sergio Barriga MD [address] [place] [address] Scheduled Procedures Name Priority Associated Diagnoses Date/Ti me COLONOSCOPY FLEXIBLE PROXIMA L DIAGNOSTIC Recall History of adenomatous polyp of colon Health Maintenance Due Date Last Done Comments Cologuard 1996 Fecal Occult Blood Test 1996 Sigmoidoscopy 1996 Depression Screening 09/10/2023 09/10/2022 Colonoscopy 09/14/2023 09/14/2022, 08/26, 04/02/2017 Colorectal Cancer Screening 09/14/2023 GFR 04/07/2025 04/07/2024, 02/25, 03/10/2024, Additional history exists Albumin/Creatinine Ratio 10/16/2025 10/16/2022, 04/25 DTaP,Tdap,and Td Vaccines (2 - Td or Tdap) 04/11/2026 04/11/2016, 07/21/1999, 07/21/1999 Zoster Vaccines Completed 09/02/2019, 06/2019, 03/22/2011 Pneumococcal Vaccine: 65+ Years Completed 08/12/2020, 08/07/2019 RETIRED - COLONOSCOPY-ANNUAL AGES 18-100 Discontinued 09/14/2022, 09/14/2022, 04/02/2017 RETIRED - COLONOSCOPY-EVERY 5 YRS AGES 18-100 Discontinued 09/14/2022, 09/14/2022, 04/02/2017 Hepatitis B Completed 05/27/2023, 01/2023, 10/25/2022 Influenza Vaccine (FLU shot) Completed 09/03/2023, 08/13/2022, 08/30/2021, Additional history exists COVID-19 Vaccine Completed 09/12/2023, , 01/13/2022, Additional history exists GARDASIL-HPV IMMUNIZATION SERIES Aged Out No longer eligible based on patient's age to complete this topic MENINGOCOCCAL (MENACTRA/MENVEO) Aged Out No longer eligible based on patient's age to complete this topic documented as of this encounter Medical Devices Implanted Type Area Cyber Policy And Strategy Planner Device Identifier Shelf Expiration Date Model / Serial / Lot Duraclip 16mm Xlg Repostn - [id number] Implanted:Qty : 1 on 07/17/2021 by Guillermo Jones DO at [place] [facility] [employer] [id number] 01/10/2024 [id number] / / [id number] Stent Viabil Biliary [id number] - [id number] Implanted:Qty : 1 on 07/17/2021 by Guillermo Jones DO at [facility] [employer] [id number] 03/04/2024 [id number] / [id number] / [id number] Port Implant W/8f Poly Cath - [id number] Implanted:Qty : 1 on 09/13/2023 by Gary Rodriguez DO at OR 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 Healthcare Agents on File Name Relationship Healthcare Agent Relationship Communication Virginie Cramer Spouse Health Care Agen t (per Health Care Power of Tour Manager document) [email or web address] [email or web address] First Alternate Health Care Agent (per Health Care Power of Tour Manager document) [email or web address] Checker Loader Relationship Specialty Start Date End Date Sergio Barriga MD [address] [place] [address] PCP - General Family Medicine 08/07/19 documented as of this encounter"
--- OUTSIDE RECORDS SUMMARY | 2024-04-18 23:50 | External Medical Summary | Summary of Care ---
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) Procedures GA PACLITAXEL PROTEIN BOUND GA IN GEMCITABINE HCL NOS 200MG Dakota Armando MD [address] [place] [address] Anc Hem/Onc [address] [address] Referral ID Status Reason Start Date Expiration Date V isits Requested Visits Authorized [id number] Authorized 02/14/2024 11/24/2099 [id number] Encounter Details Date Type Department Care Team (Latest Contact Info) Description 02/25/2024 10:30 AM EDT Hem/Onc Treatment Hematology/Oncolog y Treatment, [address] [address] Encounter for antineoplastic chemotherapy*; 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); 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 Active Multi Vitamin Daily Oral Tablet Take by mouth. Active Aspirin 81 MG Oral Tablet Delayed Release Take 1 Tablet by mouth in the morning. Active Pancrelipase (Dbz-Mhhw-Vwkk) 63001-[address] UNIT Oral Capsule Delayed Release Particles (Creon 71244) 2 cap with meals, 1 with larger snack. (up to 8/day) 240 Capsule 11 09/10/2022 Active Continuation of patient use of medical marijuana is approved Inhale 1 Capsule by mouth as needed. 09/10/2022 Active Pantoprazole Sodium 40 MG Oral Tablet Delayed Release (Protonix) TAKE 1 TABLET BY MOUTH EVERY MORNING 90 Tablet 3 07/03/2023 Active Lidocaine-Prilo clifton 2.5-2.5 % External Cream (Emla)Indicatio ns: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),Metastasi s to liver (HCC) APPLY TO SKIN OVER MEDIPORT & COVER 1HR PRIOR TO ACCESSING. 30 g 1 08/30/2023 Active Additional Information Patient not taking.Reported on 12/17/2023 Ondansetron HCl 8 MG Oral Tablet (Zofran)Indicat ions: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),Metastasi s to liver (HCC) Take 1 Tablet by mouth every 8 hours as needed for Nausea. 30 Tablet 3 08/30/2023 Active Prochlorperazin e Maleate 10 MG Oral Tablet (Compazine)Jennifer cations:Maligna nt neoplasm of body of pancreas (HCC),Metastasi s to liver (HCC) Take 1 Tablet by mouth every 6 hours as needed for Nausea. 30 Tablet 3 08/30/2023 Active OLANZapine 10 MG Oral Tablet (ZyPREXA)Indica tions: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),Metastasi s to liver (HCC) Take 1 tablet by mouth before bed x4 nights starting day 1 of each chemo cycle 48 Tablet 08/30/2023 Active Loratadine 10 MG Oral Tablet (Claritin)Indic ations:Malignan t neoplasm of body of pancreas (HCC),Metastasi s to liver (HCC) Take 1 tablet daily x5 days starting the day of chemo pump disconnect 60 Tablet 09/03/2023 Active Atorvastatin Calcium 40 MG Oral Tablet (Lipitor) TAKE 1 TABLET BY MOUTH EVERY MORNING 90 Tablet 2 09/25/2023 Active traZODone HCl 100 MG Oral Tablet (Desyrel)Indica tions:Persisten t insomnia TAKE 1 TABLET BY MOUTH AT BEDTIME 90 Tablet 3 12/19/2023 Active Sotorasib 120 MG Oral TabletIndicatio ns: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),Metastasi s to liver (HCC) Take 960 mg by mouth in the morning. With or without food. 240 Tablet 5 02/24/2024 Active ALPRAZolam 1 MG Oral Tablet (xaNAX)Indicati ons:Chronic insomnia TAKE ONE TABLET BY MOUTH AT BEDTIME NEEDED FOR SLEEP 30 Tablet 2 12/27/2023 4 Discontinued documented as of this encounter (statuses as of 04/13/2024) Active Problems Problem Noted Date Diagnosed Date Malignant neoplasm of body of pancreas 3 Metastasis to liver 08/30/2023 Encounter for antineoplastic chemotherapy 2022 History of carcinoma of pancreas 07/18/2023 Post-viral cough syndrome 07/09/2023 Upper airway cough syndrome 07/09/2023 History of 2019 novel coronavirus disease (COVID -19) 10/16/2022 Coronary artery disease invo lving [place] coronary artery of [place] heart without angina pectoris 08/20/2022 Overview: [...] +Urine prot 01/13 dx DVT After 6h drbert. 04/12 recl nearly occlusive DVT in distal popliteal vein also anterior tib, post tib and peroneal veins, similar to 01/13. 05/13 labs Anti thr III WNL, Prot C WNL, Prot S WNL, antiphos lipids WNL Factor V+heteroqygous. 04/10 colon-Dr Case [facility] 2 polyps 1 tubular adenoma. 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 After 6h isadora. 04/12 recl nearly occlusive DVT in distal popliteal vein also anterior tib, post tib and peroneal veins, similar to 01/13. 6/19 labs Anti thr III WNL, Prot C WNL, Prot S WNL, antiphos lipids WNL Factor V+heteroqygous. FM ES-[id number]-AJCZH DIS NEC documented as of this encounter (statuses as of 04/13/2024) Immunizations Name Administration Dates Next Due COVID-19 mRNA, LNP-s, No Pre serve, 2-Dose Series ([employer]) 01/13/2022,07/21/2021,02/01/2021,01/04 COVID-19, MRNA-LNP, 23-24, P F, 30 MCG/0.3 mL, 12 YRS AND ABOVE, IM ([facility]) 09/12/2023 Covid-19, Mrna, Lnp-s, Pf, B ivalent, 30 Mcg, IM, 12 yrs and above ([employer]) 08/16/2022 HEP A - Hepatitis A (Adult [...] Date Smoking Tobacco: Never Smokeless Tobacco: Never Alcohol Use Standard Drinks/Week Comments Yes 0 [...] Sign Reading Time Taken Comments Blood Pressure 135/74 02/25/2024 10:40 AM EDT Pulse 75 02/25/2024 10:40 AM EDT Temperature 36.1 C (97 F) 02/25/2024 10:40 AM EDT Respiratory Rate 16 02/25/2024 10:40 AM EDT Oxygen Saturation 96% 02/25/2024 10:40 AM EDT Inhaled Oxygen Concentration - - Weight 61.8 kg (136 lb 3.2 oz) 02/25/2024 10:40 AM EDT Height - - Body Mass Index 20.11 12/02/2023 2:17 PM EST documented in this encounter Functional Status Functional [...] (15 years old or older) No 07/16/20 21 Cognitive Status Response Date of Assessm ent Because of a physical, menta l, or emotional condition, do you have serious difficulty concentrating, remembering, or making decisions? (5 years old or older) No 07/16/2021 documented as of this encounter Nursing Notes * Krysten Valencia RN - 02/25/2024 4:11 PM EDT Goals: Patient will remain free from injury. Possible barriers to meeting goals: ambulating with IV pole Stability of the patient: Moderately stable - low risk of patient condition declining or worsening Summary regarding today's goals: Met: pt remained free of harm today Patient tolerated treatment well without any acute issues or problems. Patient left facility in stable condition and denied any further needs. * Deborah Harrington RN - 02/25/2024 12:39 PM EDT Chair 2 Pt here for C1D1 Gemzar/Abraxane. No complaints. States he's feeling better since he's not getting chemo. Diarrhea and fatigue both improved. Chemotherapy/Immunotherapy agents: Abraxane and GEMZAR Consent for chemotherapy drug treatment complete, dated, and signed? yes, date - 02/19/24 Treatment lab parameters met? Yes; LFTs and ANC reviewed with Claudio Huizar NP and ok for treatment Has treatment weight changed > than 10%? No Treatment preauthorized? Yes VITALS Filed Vitals: 02/25/24 1040 BP: 135/74 Pulse: 75 Resp: 16 Temp: 36.1 C (97 F) TempSrc: Tympanic SpO2: 96% Weight: 61.8 kg (136 lb 3.2 oz) Urine protein: N/A Patient education completed for treatment? Yes Blood transfusion consent signed and complete? NA Return appointment scheduled? Yes Patient had provider visit today? No - If no provider visit must complete Pretreatment Assessment Functional Status: Functional status at today's visit: Restricted in physically strenuous activity but ambulatory and able to carry out work on a light orsedentary nature, e.g. light house work, office work The drug name, dose, infusion volume, rate and route of administration, expiration date and time, appearance and physical integrity of the drug and rate set on the pump and sequencing of drug administration (as applicable) were verified by me and second sign-in RN. Patient was assessed for symptoms or adverse side effects during treatment. PRE-TREATMENT ASSESSMENT: NEURO: denies symptoms CV/RESP: denies symptoms GI/: denies symptoms OTHER: denies any additional symptoms PAIN: 0 Safety and Risk for Injury Patient will remain free from injury. Ensure appropriate safety devices are available. Provide and maintain safe environment. documented in this encounter Plan of Treatment Upcoming Encounters Date Type Department Care Team (Late st Contact Info) Description 04/21/2024 9:30 AM EDT Pharmacy Pharmacy Hematology Oncology [facility] [address] [place] [address] [facility], [facility] Hem/Onc [address] [place] [address] 04/21/2024 10:30 AM EDT Laboratory Laboratory [facility] [place] [address] [place] [phone] Rehana, Lab [facility] [address] [facility] [place] [address] 04/21/2024 11:30 AM EDT Hem/Onc Treatment Hematology/Oncology Treatment, [place] [address] [place] [phone] Rehana, Chair 7 Hem Onc [facility] [address] [facility] [place] [address] 05/06/2024 10:00 AM EDT Laboratory Laboratory [facility] [place] [address] [place] [phone] Rehana, Lab [facility] [address] [facility] [place] [address] 05/06/2024 10:30 AM EDT Office Visit Hematology/Oncology [facility] [place] [address] [place] [phone] Taylor Barone CRNP [address] [place] [address] 05/06/2024 11:00 AM EDT Hem/Onc Treatment Hematology/Oncology Treatment, [place] [address] [place] [address] [place], Chair 6 Hem Onc [facility] [address] [place] [address] 07/21/2024 1:45 PM EDT Office Visit Hematology/Oncology [facility] [place] [address] [place] [phone] Dakota Armando MD [address] [place] [address] 07/24/2024 11:40 AM EDT Office Visit Family Practice [facility] [address] [place] [address] Sergio Barriga MD [address] [place] [address] Scheduled Procedures Name Priority Associated Diagnoses Date/Ti me COLONOSCOPY FLEXIBLE PROXIMA L DIAGNOSTIC Recall History of adenomatous polyp of colon Health Maintenance Due Date Last Done Comments Cologuard 1996 Fecal Occult Blood Test 1996 Sigmoidoscopy 1996 Depression Screening 09/10/2023 09/10/2022 Colonoscopy 09/14/2023 09/14/2022, 08/26, 04/02/2017 Colorectal Cancer Screening 09/14/2023 COVID-19 Vaccine ( season) 2023 09/12/2023, 08/16/2022, 01/13/2022, Additional history exists GFR 04/07/2025 04/07/2024, 02/25, 03/10/2024, Additional history [...] Completed 09/03/2023, 08/13/2022, 08/30/2021, Additional history exists GARDASIL-HPV IMMUNIZATION SERIES Aged Out No longer eligible based on patient's age to complete this topic MENINGOCOCCAL (MENACTRA/MENVEO) Aged Out No longer eligible based on patient's age to complete this topic documented as of this encounter Medical Devices Implanted Type Area Narrow Gauge Operator Device Identifier Shelf Expiration Date Model / Serial / Lot Duraclip 16mm Xlg Repostn - [id number] Implanted:Qty : 1 on 07/17/2021 by Guillermo Jones DO at ENDOSCOPY [facility] [employer] [id number] 01/10/2024 [id number] / / [id number] Stent Viabil Biliary [id number] - [id number] Implanted:Qty : 1 on 07/17/2021 by Guillermo Jones DO at ENDOSCOPY [facility] [employer] [id number] 03/04/2024 [id number] / [id number] / [id number] Port Implant W/8f Poly Cath - [id number] Implanted:Qty : 1 on 09/13/2023 by Gary Rodriguez DO at OR [facility] Right: Chest CR BARD : PERIPHERAL VASCULAR [id number] 04/24/2025 [id number] / / [id number] documented as of this encounter Visit Diagnoses Diagnosis Encounter for antineoplastic chemotherapy- Primary 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) Malignant neoplasm of body of pancreas 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 documented in this encounter Administered Medications Inactive Administered Medications - up to 3 most recent administrations Medication Order MAR Action Action Date Dose Rate Site gemcitabine (Gemzar) 1,800 mg in NSS 250 mL infusion 1,800 mg (rounded from 1,720 mg = 1,000 mg/m2 1.72 m2 Treatment Plan BSA from Recorded weight), IV Piggyback, ONCE, 1 dose, On Sat02/25/24 at 1245, Administer over 30 Minutes Start Infusion 02/25/2024 1:06 PM EDT 1,800 mg 500 mL/hr hEParin 100 UNIT/ML Lock Flush inj 500 Units 500 Units (5 mL), IV Lock, PRN Other, IV Flush, Starting on Sat02/25/24 at 1041, Until Sat02/25/24 at 2012, For 24 hours, Do not flush if lock, PICC, or central line not in place; IV infusing or unable to flush. Given 02/25/2024 1:44 PM EDT 500 Units NSS infusion Intravenous, at 50 mL/hr, PRN, Starting on Sat02/25/24 at 1145, Until Sat02/25/24 at 2013, Maintenance line Start Infusion 02/25/2024 11:10 AM EDT 50 mL/hr ondansetron (Zofran) tab 8 mg 8 mg, Oral, ONCE, On Sat02/25/24 at 1145, For 1 dose, Give 30 minutes prior to chemotherapy. Given 02/25/2024 11:04 AM EDT 8 mg PACLitaxel protein-bound (Abraxane) inj 200 mg 200 mg (rounded from 215 mg = 125 mg/m2 1.72 m2 Treatment Plan BSA from Recorded weight), IV Piggyback, ONCE, 1 dose, On Sat02/25/24 at 1215, Administer over 30 Minutes, PROTECT FROM LIGHT Use Dedicated line Without Filter Start Infusion 02/25/2024 12:18 PM EDT 200 mg 80 mL/hr sodium chloride 0.9 % flush central line 10 mL 10 mL, IV Push, PRN Other, IV Flush, Starting on Sat02/25/24 at 1041, Until Sat02/25/24 at 2012, For 24 hours, Do not flush if lock, PICC, or central line not in place; IV infusing or unable to flush. Given 02/25/2024 1:44 PM EDT 10 mL documented in this encounter Advance Directives Documents on File Type Date Recorded Patient Aviation Manager Expl anation Advance Directives and Living Will 10/23/2022 4:43 PM Virginie LibhartWilliaherbie Cramer KarlLibhartLivingWill .PDF * Full Code (Latest Code Status on File) Date Activated Date Inactivated Comments 07/16/2021 10:04 AM 07/18/2021 6:28 PM This order reflects the patients wishes and were consensually agreed upon. Healthcare Agents on File Name Relationship Healthcare Agent Relationship Communication Virginie Cramer Spouse Health Care Agen t (per Health Care Power of Tack Driller document) [email or web address] Bela Sibling First Alternate Health Care Agent (per Health Care Power of Tack Driller document) [email or web address] Pals Specialist Relationship Specialty Start Date End Date Sergio Barriga MD [address] [place] [address] PCP - General Family Medicine 08/07/19 documented as of this encounter
--- OUTSIDE RECORDS SUMMARY | 2024-04-18 23:50 | External Medical Summary | Summary of Care ---
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 Active Pancrelipase (Fpk-Bpyj-Skrz) 49420-[address] UNIT Oral Capsule Delayed Release Particles (Creon 40465) 2 cap with meals, 1 with larger [...] -19) 10/16/2022 Coronary artery disease invo lving ute coronary artery of ute heart without angina pectoris 08/20/2022 Overview: Severe [...] lipids WNL Factor V+heteroqygous. 04/10 colon-Dr Case [facility] 2 polyps 1 tubular adenoma. Kevin 5y 2013 sleep study [facility] WNL [address] Elena [facility] Essential hypertension with goal blood pressure less [...] WNL, antiphos lipids WNL Factor V+heteroqygous. FM [id number]-OVHR-CKJHL DIS NEC documented as of this encounter (statuses as of 04/13/2024) Immunizations Name Administration Dates Next Due COVID-19 mRNA, LNP-s, No Pre serve, 2-Dose Series ([employer]) 01/13/2022,07/21/2021,02/01/2021,01/04 COVID-19, MRNA-LNP, 23-24, P F, 30 MCG/0.3 mL, 12 YRS AND ABOVE, IM ([facility] 09/12/2023 Covid-19, Mrna, Lnp-s, Pf, B ivalent, 30 Mcg, IM, 12 yrs and above ([facility]) 08/16/2022 HEP A - Hepatitis A (Adult [...] 9:30 AM EDT Pharmacy Pharmacy Hematology Oncology [facility] [address] [place] [address] [facility] [place], [facility] Hem/Onc [address] [place] [address] 04/21/2024 10:30 AM EDT Laboratory Laboratory [facility] [place] [address] [place] [phone] Rehana, Lab [facility] [address] [facility] [place] [address] 04/21/2024 11:30 AM EDT Hem/Onc Treatment Hematology/Oncology Treatment, [place] [address] [place] [phone] Rehana, Chair 7 Hem Onc [facility] [address] [facility] [place] [address] 05/06/2024 10:00 AM EDT Laboratory Laboratory [facility] Rehana [place] [address] [place] [phone] Rehana, Lab [facility] [address] [facility] [place] [address] 05/06/2024 10:30 AM EDT Office Visit Hematology/Oncology [facility] [place] [address] [place] [phone] Taylor Barone CRNP [address] [place] [address] 05/06/2024 11:00 AM EDT Hem/Onc Treatment Hematology/Oncology Treatment, [place] [address] [place] [address] Park, Chair 6 Hem Onc [address] [place] [address] 07/21/2024 1:45 PM EDT Office Visit Hematology/Oncology [facility] Rehana [place] [address] [place] [phone] Dakota Armando MD [address] [place] [address] 07/24/2024 11:40 AM EDT Office Visit Family Practice [facility] [address] [place] [address] Sergio Barriga MD [address] [place] [address] Scheduled Procedures Name Priority Associated Diagnoses Date/Ti [...] this encounter Medical Devices Implanted Type Area Automation Machine Operator Device Identifier Shelf Expiration Date Model / Serial / Lot Duraclip 16mm Xlg Repostn - [id number] Implanted:Qty : 1 on 07/17/2021 [place]illermo Jones DO [place] [facility] [place] [employer] [id number] 01/10/2024 [id number] / / [id number] Stent Viabil Biliary [id number] - [id number] Implanted:Qty : 1 on 07/17/2021 by Guillermo Jones DO [place] [facility] [place] [employer] REYNALDO [id number] 03/04/2024 [id number] / [id number] / [id number] Port Implant W/8f Poly Cath - [id number] Implanted:Qty : 1 on 09/13/2023 by Gary Rodriguez DO at OR [facility] Right: Chest CR BARD : PERIPHERAL VASCULAR [id number] 04/24/2025 [id number] / / [id number] documented as of this encounter Visit Diagnoses [...] Documents on File Type Date Recorded Patient Assembler Installer Structures Expl anation Advance Directives and Living Will [...] Agen t (per Health Care Power of Lobster Man document) [email or web address] Temo Bela Sibling First Alternate Health Care Agent (per Health Care Power of Lobster Man document) [email or web address] Care Teams Civil Service Clerk Relationship Specialty Start Date End Date Sergio Barriga MD [address] [place] [address] PCP - General Family Medicine 08/07/19 documented as of this encounter
--- OUTSIDE RECORDS SUMMARY | 2024-04-18 23:50 | External Medical Summary | Summary of Care ---
Author Name Unknown Organization [facility] Address [address] [place] [address] Phone [phone] Care Team Providers Care Tub Washer Name Role Phone Sergio Barriga MD Primary Care Provider + Reason for Visit * Reason Onset Date Comments Fever 04/18/2024 Encounter Details Date Type Department Care Team (Late st Contact Info) Description 04/18/2024 Telephone Hematology Oncology [facility] [address] [place] [address] Zhao Bedolla MD [address] [place] [address] Fever Allergies Active Allergy Reactions Criticality Noted Date Comments Lisinopril Cough Low 08/07/2019 documented as of this encounter (statuses as of 04/18/2024) Medications Medication Sig Dispensed Refills Start Date End Date Status Boost 100 Calorie Smart Oral Liquid Take by mouth. Act miley Multi Vitamin Daily Oral Tablet Take by mouth. Act miley Aspirin 81 MG Oral Tablet Delayed Release Take 1 Tablet by mouth in the morning. Active Pancrelipase (Wji-Fdwk-Clli) [id number] UNIT Oral Capsule Delayed Release Particles (Creon 83494) 2 cap with meals, 1 with larger [...] as of this encounter (statuses as of 04/18/2024) Active Problems Problem Noted Date Diagnosed Date Malignant neoplasm of body of pancreas 3 Metastasis to liver 08/30/2023 Encounter for antineoplastic chemotherapy 2022 History of carcinoma of pancreas 07/18/2023 Post-viral cough syndrome 07/09/2023 Upper airway cough syndrome 07/09/2023 History of 2019 novel coronavirus disease (COVID -19) 10/16/2022 Coronary artery disease invo lving minto coronary artery of minto heart without angina pectoris 08/20/2022 Overview: Severe [...] lipids WNL Factor V+heteroqygous. 04/10 colon-Dr Eller [facility] 2 polyps 1 tubular adenoma. Kevin 6y 2013 sleep study [facility] WNL [address] Elena [facility] Essential hypertension with goal blood pressure less [...] as of this encounter (statuses as of 04/18/2024) Resolved Problems Problem Noted Date Diagnosed Date [...] WNL, antiphos lipids WNL Factor V+heteroqygous. FM FR-AHLO-UJYGZ DIS NEC documented as of this encounter (statuses as of 04/18/2024) Immunizations Name Administration Dates Next Due COVID-19 mRNA, LNP-s, No Pre serve, 2-Dose Series ([facility]) 01/13/2022,07/21/2021,02/01/2021,01/04 COVID-19, MRNA-LNP, 23-24, P F, 30 MCG/0.3 mL, 12 YRS AND ABOVE, IM ([facility]) 09/12/2023 Covid-19, Mrna, Lnp-s, Pf, B ivalent, 30 Mcg, IM, 12 yrs and above ([facility]) 08/16/2022 HEP A - Hepatitis A (Adult [...] on file documented as of this encounter Functional Status Functional Status Response [...] No 07/16/2021 documented as of this encounter Miscellaneous Notes * Telephone Encounter - Zhao Bedolla MD - 04/18/2024 2:51 PM EDT 04/18/2024 Rafael Cramer Primary filter tank tender helper/oncologist: Dr. Amrando Covering filter tank tender helper/oncologist: Dr. Villanueva Person I talked with: Patient Hemo/Onc Dx: Pancreatic cancer Reason for phone call: Patient notes that he went out to walk his dog this morning and came back, felt warm and had a fever of 104. He has a wound above his right knee for the past two weeks that has mild drainage, "pus", from the wound with mild erythema surrounding that has not healed. Has not shown a provider this wound as of yet. Last chemotherapy was 04/07 and currently on sotorasib as well. He took tylenol and histemp came down to 99. He does note that since having pancreatic cancer that atleast once a month orso he gets fevers for a couple days that resolves with tylenol but never this high. Given the woundas well he decided to call. Has a chronic cough. Denies diarrhea, bleeding symptoms, sob, headaches, myalgias, abd pain, dysuria, rash elsewhere. Recommendations: - Advised that he go to the ER or urgent care atleast, although he may have had fever in past 2/2 malignancy given his prior neutropenia on CBC, on active chemotherapy, and current wound that could be infected he should be evaluated for infection and neutropenic fever. He notes that he will go to the ER likely today to be seen. Follow-up: Will forward to Dr Armando documented in this encounter Plan of Treatment Upcoming Encounters Date Type Department Care Team (Late st Contact Info) Description 04/21/2024 9:30 AM EDT Pharmacy Pharmacy Hematology Oncology [facility] [address] [place] [address] [facility] Hem/Onc [address] [place] [address] 04/21/2024 10:30 AM EDT Laboratory Laboratory [facility] [place] [address] [place] [phone] Rehana, Lab [address] [place] [address] 04/21/2024 11:30 AM EDT Hem/Onc Treatment [facility]cology [facility], [place] [facility] [phone] Rehana, Chair 4 Hem Onc [address] [place] [address] 05/06/2024 10:00 AM EDT Laboratory Laboratory [facility] [place] [address] [place] [address] Rehana, Lab [address] [place] [address] 05/06/2024 10:30 AM EDT Office Visit Hematology/Oncology [facility] Reh[place] [address] [place] [phone] Taylor Barone CRNP [address] [place], [place] [phone] 05/06/2024 11:00 AM EDT Hem/Onc Treatment Hematology/Oncology Treatment, [place] [facility] [phone] Rehana, Chair 6 Hem Onc [address] [place] [address] 07/21/2024 1:45 PM EDT Office Visit Hematology/Oncology [facility] [address] [facility] [place] [address] Dakota Armando MD [address] [facility] [place] [address] 07/24/2024 11:40 AM EDT Office Visit Family Practice [facility] [address] [place] [address] Sergio Barriga MD [address] [place] [address] Scheduled Procedures Name Priority Associated Diagnoses Date/Ti [...] 04/11/2016, 07/21/1999, 07/21/1999 Zoster Vaccines Completed 09/02/2019, 070 06/2019, 03/22/2011 Pneumococcal Vaccine: 65+ Years Completed [...] this encounter Medical Devices Implanted Type Area Heating Unit Installer Device Identifier Shelf Expiration Date Model / Serial / Lot Duraclip 16mm Xlg Repostn - [id number] Implanted:Qty : 1 on 07/17/2021 by Guillermo Jones DO [place] [facility] [place] [employer] REYNALDO [id number] 01/10/2024 [id number] / / [id number] Stent Viabil Biliary [id number] - [id number] Implanted:Qty : 1 on 07/17/2021 by Guillermo Jones DO [place] [facility] [place] [employer] REYNALDO [id number] 03/04/2024 [id number] / [id number] / [id number] Port Implant W/8f Poly Cath - [id number] Implanted:Qty : 1 on 09/13/2023 by Gary Rodriguez DO at OR [facility] Right: Chest CR BARD : PERIPHERAL VASCULAR [id number] 04/24/2025 [id number] / / [id number] documented as of this encounter Advance Directives Documents on File Type Date Recorded Patient Store Administrator Expl anation Advance Directives and Living Will 10/23/2022 4:43 PM Virginie Rollins .PDF * Full Code (Latest Code Status on File) Date Activated Date Inactivated Comments 07/16/2021 10:04 AM 07/18/2021 6:28 PM This order reflects the patients wishes and were consensually agreed upon. Healthcare Agents on File Name Relationship Healthcare Agent Relationship Communication Virginie Cramer Spouse Health Care Agen t (per Health Care Power of Private Inquiry Agent document) [email or web address] Tem[employer] [email or web address] First Alternate Health Care Agent (per Health Care Power of Private Inquiry Agent document) Care Teams Tub Washer Relationship Specialty Start Date End Date Sergio Barriga MD [address] [place] [address] PCP - General Family Medicine 08/07/19 documented as of this encounter
--- OUTSIDE RECORDS SUMMARY | 2024-04-18 23:50 | External Medical Summary | Summary of Care ---
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) Procedures [place] PACLITAXEL PROTEIN BOUND [place] IN GEMCITABINE HCL NOS 200MG Dakota Armando MD [address] [facility] [place] [address] Anc Hem/Onc [address] [address] Referral ID Status Reason Start Date Expiration Date V isits Requested Visits Authorized [id number] Authorized 02/14/2024 11/24/2099 999 999 Encounter Details Date Type Department Care Team (Latest Contact Info) Description 04/07/2024 11:15 AM EDT Hem/Onc Treatment Hematology/Oncolog y Treatment, [address] [address] Rehana, Chair 1 Hem Onc [address] [place] [address] Encounter for antineoplastic chemotherapy*; Malignant neoplasm of [...] mouth in the morning. 0 Active Pancrelipase (Aih-Lkxm-Vwva) [address] UNIT Oral Capsule Delayed Release Particles (Creon 36424) 2 cap with meals, 1 with larger [...] Date Malignant neoplasm of body of pancreas Metastasis to liver 08/30/2023 Encounter for antineoplastic chemotherapy 2022 History of carcinoma of pancreas 07/18/2023 Post-viral cough syndrome 07/09/2023 Upper airway cough syndrome 07/09/2023 History of 2019 novel coronavirus disease (COVID -19) 10/16/2022 Coronary artery disease invo lving [place] coronary artery of [place] heart without angina pectoris 08/20/2022 Overview: Severe noted on 08/16 CT chest. Degenerative arthritis of thumb, right Localized edema 07/18/2022 Alcohol dependence in remission [...] +Urine prot 01/13 dx DVT After 6h drvie. 04/12 recl nearly occlusive DVT in distal popliteal vein also anterior tib, post tib and peroneal veins, similar to 01/13. 05/13 labs Anti thr III WNL, Prot C WNL, Prot S WNL, antiphos lipids WNL Factor V+heteroqygous. 04/10 colon-Dr Case [facility] 2 polyps 1 tubular adenoma. Kevin 6y 2013 sleep study [facility] WNL [address] Elena [facility] Essential hypertension with goal blood pressure less [...] Overview: 01/13 dx date ? After 6h drbert. 04/12 recl nearly occlusive DVT in distal popliteal vein also anterior tib, post tib and peroneal veins, similar to 01/13. 05/13 labs Anti thr III WNL, Prot C WNL, Prot S WNL, antiphos lipids WNL Factor V+heteroqygous. FM KB-GEUF-EKLGP DIS NEC documented as of this encounter (statuses as of 04/07/2024) Immunizations Name Administration Dates Next Due COVID-19 mRNA, LNP-s, No Pre serve, 2-Dose Series (mywaves) 01/13/2022,07/21/2021,02/01/2021,01/04 COVID-19, MRNA-LNP, 23-24, P F, 30 MCG/0.3 mL, 12 YRS AND ABOVE, IM [facility] 09/12/2023 Covid-19, Mrna, Lnp-s, Pf, B ivalent, 30 Mcg, IM, 12 yrs and above ([facility]waves) 08/16/2022 HEP A - Hepatitis A (Adult [...] as of this encounter Nursing Notes * Jing Bray RN - 04/07/2024 2:05 PM EDT Pt completed treatment without issues. VAD flushed with 10 ml NSS and Heparin 5 ml (100 units/ml). Soriano needle removed intact. Goals: Pt will remain free from injury. Possible barriers to meeting goals: ambulation with IV pole Stability of the patient: Moderately stable - low risk of patient condition declining or worsening Summary regarding today's goals: Met: Pt remained free from injury during treatment today. Discharged in stable condition. * Jing Bray RN - 04/07/2024 11:29 AM EDT Chair 7 Chemotherapy/Immunotherapy agents: Abraxane and GEMZAR Consent for chemotherapy drug treatment complete, dated, and signed? yes, date - 02/19/24 Treatment lab parameters met? Yes Has treatment weight changed > than 10%? No Treatment preauthorized? Yes VITALS Filed Vitals: Urine protein: N/A Patient education completed for treatment? Yes Blood transfusion consent signed and complete? NA Return appointment scheduled? Yes Patient had provider visit today? Yes - Ok to release order and treat per provider VAD accessed; NSS infusing. Safety and Risk for Injury Patient will remain free from injury. Ensure appropriate safety devices are available. Provide and maintain safe environment. Functional Status: Functional status at today's visit: Fully active, able to carry on all pre-disease performance without restriction The drug name, dose, infusion volume, rate and route of administration, expiration date and time, appearance and physical integrity of the drug and rate set on the pump and sequencing of drug administration (as applicable) were verified by me and second sign-in RN. Patient was assessed for symptoms or adverse side effects during treatment. documented in this encounter Plan of Treatment Upcoming Encounters Date Type Department Care Team (Late st Contact Info) Description 04/21/2024 9:30 AM EDT Pharmacy Pharmacy Hematology Oncology [facility] [address] [place] [address] [facility] [place] Hem/Onc [address] [place] [address] 07/21/2024 1:45 PM EDT Office Visit Hematology/Oncology [facility] [address] [place] [address] Dakota Armando MD [address] [place] [address] [address] 07/24/2024 11:40 AM EDT Office Visit Family Practice [facility] [address] [place] [address] Sergio Barriga MD [address] [place] [address] Scheduled Procedures Name Priority Associated Diagnoses Date/Ti [...] this encounter Medical Devices Implanted Type Area Data Center Architect Device Identifier Shelf Expiration Date Model / Serial / Lot Duraclip 16mm Xlg Repostn - [id number] Implanted:Qty : 1 on 07/17/2021 by Guillermo Jones DO [place] [facility] [place] [employer] [id number] 01/10/2024 [id number] / / [id number] Stent Viabil Biliary [id number] - [id number] Implanted:Qty : 1 on 07/17/2021 by Guillermo Jones DO [place] [facility] [place] [employer] [id number] 03/04/2024 [id number] / [id number] / [id number] Port Implant W/8f Poly Cath - [id number] Implanted:Qty : 1 on 09/13/2023 by Gary Rodriguez DO at OR [facility] Right: Chest CR BARD : PERIPHERAL VASCULAR [id number] 04/24/2025 [id number] / / [id number] documented as of this encounter Visit Diagnoses Diagnosis Encounter for antineoplastic chemotherapy- Primary 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) Malignant neoplasm of body of pancreas 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 documented in this encounter Administered Medications Active Administered Medications - up to 3 most recent administrations Medication Order MAR Action Action Date Dose Rate Site diphenhydrAMINE (Benadryl) inj 50 mg 50 mg, IV Push, ONCE PRN Other, Hypersensitivity Reaction, Starting on Sat04/07/24 at 1128, Until Sat04/08/24 at 1127, For 24 hours EPINEPHrine 1 MG/ML inj 0.3 mg 0.3 mg, Intramuscular, ONCE PRN Other, Hypersensitivity Reaction or Anaphylaxis, Starting on Sat04/07/24 at 1128, Until Sat04/08/24 at 1127, For 24 hours hEParin 100 UNIT/ML Lock Flush inj 500 Units 500 Units (5 mL), IV Lock, PRN Other, IV Flush, Starting on Sat04/07/24 at 1128, Until Sat04/08/24 at 1127, For 24 hours, Do not flush if lock, PICC, or central line not in place; IV infusing or unable to flush. Given 04/07/2024 1:27 PM EDT 500 Units Hydrocortisone Sod Suc (PF) (Solu-Cortef) inj 100 mg 100 mg, IV Push, ONCE PRN Other, Hypersensitivity Reaction, Starting on Sat04/07/24 at 1128, Until Sat04/08/24 at 1127, For 24 hours LORAzepam (Ativan) tab 0.5 mg 0.5 mg, Oral, ONCE PRN Anxiety, Nausea, Starting on Sat04/07/24 at 1230, Until Discontinued NSS infusion Intravenous, at 50 mL/hr, PRN, Starting on Sat04/07/24 at 1230, Until Discontinued, Maintenance line Start Infusion 04/07/2024 11:31 AM EDT 50 mL/hr oxygen GAS Inhalation, OXYGEN, First dose on Sat04/07/24 at 1600, Until Discontinued, Device/Managed by: Low Flow Device, Goal SPO2 (%): 91-95, Starting Device: Nasal Cannula, Initial Flow Rate (LPM): 2, Lowest Support: Nasal Cannula: Flow 0-6 LPM. Titrate up/down by 1 LPM., Higher Support: Non-Rebreather (NRB) Mask: Minimum of 10 LPM. Titrate to maintain bag inflation., Titration Interval: Q2 minutes and as needed., Notify Provider: For sudden DECREASE in resting SPO2 to less than 85% and when escalating delivery device., Wean patient off Oxygen when the oxygen saturation is greater than or equal to 93% sodium chloride 0.9 % flush central line 10 mL 10 mL, IV Push, PRN Other, IV Flush, Starting on Sat04/07/24 at 1128, Until Sat04/08/24 at 1127, For 24 hours, Do not flush if lock, PICC, or central line not in place; IV infusing or unable to flush. Given 04/07/2024 1:27 PM EDT 20 mL Inactive Administered Medications - up to 3 most recent administrations Medication Order MAR Action Action Date Dose Rate Site gemcitabine (Gemzar) 1,800 mg in NSS 250 mL infusion 1,800 mg (rounded from 1,720 mg = 1,000 mg/m2 1.72 m2 Treatment Plan BSA from Recorded weight), IV Piggyback, ONCE, 1 dose, On Sat04/07/24 at 1330, Administer over 30 Minutes Start Infusion 04/07/2024 12:54 PM EDT 1,800 mg 550 mL/hr ondansetron (Zofran) tab 8 mg 8 mg, Oral, ONCE, On Sat04/07/24 at 1230, For 1 dose, Give 30 minutes prior to chemotherapy. Given 04/07/2024 11:40 AM EDT 8 mg PACLitaxel protein-bound (Abraxane) inj 200 mg 200 mg (rounded from 215 mg = 125 mg/m2 1.72 m2 Treatment Plan BSA from Recorded weight), IV Piggyback, ONCE, 1 dose, On Sat04/07/24 at 1300, Administer over 30 Minutes, PROTECT FROM LIGHT Use Dedicated line Without Filter Start Infusion 04/07/2024 12:19 PM EDT 200 mg 80 mL/hr documented in this encounter Advance Directives Documents on File Type Date Recorded Patient Houseman Expl anation Advance Directives and Living Will 10/23/2022 4:43 PM Virginie RoseibhartLivingWiyonas .PDF Latest Code Status on File Code Status Date Activated Date Inactivated Comments Full Code 07/16/2021 10:04 AM 07/18/2021 6:28 PM This order reflects the patients wishes and were consensually agreed upon. Healthcare Agents on File Name Relationship Healthcare Agent Relationship Communication Virginie Cramer Spouse Health Care Agen t (per Health Care Power of [place] Hardware Installer document) .[employer] Temo Cramer Sibling First Alternate Health Care Agent (per Health Care Power of [place] Hardware Installer document) Care Teams Egg Tester Relationship Specialty Start Date End Date Sergio Barriga MD [address] [place] [address] PCP - General Family Medicine 08/07/19 documented as of this encounter
--- OUTSIDE RECORDS SUMMARY | 2024-04-18 23:51 | External Medical Summary | Summary of Care ---
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) Procedures [place] PACLITAXEL PROTEIN BOUND [place] IN GEMCITABINE HCL NOS 200MG Dakota Armando MD 200 [facility] [place] [address] Anc Hem/Onc [address] [phone] Referral ID Status Reason Start Date Expiration Date V isits Requested Visits Authorized [id number] Authorized 02/14/2024 11/24/[phone] Encounter Details Date Type Department Care Team (Latest Contact Info) Description 03/24/2024 10:15 AM EDT Hem/Onc Treatment Hematology/Oncolog y Treatment, [address] [phone] Rehana, Chair 5 Hem On[address] [place] [address] Encounter for antineoplastic chemotherapy*; 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 0 Active Multi Vitamin Daily Oral Tablet Take by mouth. 0 Active Aspirin 81 MG Oral Tablet Delayed Release Take 1 Tablet by mouth in the morning. 0 Active Pancrelipase (Vcg-Ogkh-Tmor) 95663-[address] UNIT Oral Capsule Delayed Release Particles (Creon 49057) 2 cap with meals, 1 with larger [...] as of this encounter (statuses as of 04/03/2024) Active Problems Problem Noted Date Diagnosed Date Malignant neoplasm of body of pancreas 3 Metastasis to liver 08/30/2023 Encounter for antineoplastic chemotherapy 2022 History of carcinoma of pancreas 07/18/2023 Post-viral cough syndrome 07/09/2023 Upper airway cough syndrome 07/09/2023 History of 2019 novel coronavirus disease (COVID -19) 10/16/2022 Coronary artery disease invo lving [place] coronary artery of [place] heart without angina pectoris 08/20/2022 Overview: Severe [...] antiphos lipids WNL Factor V+heteroqygous. 04/10 colon-Dr Rafita [facility] 2 polyps 1 tubular adenoma. Kevin 5y 2013 sleep study [facility] WNL [address] Elena [facility] Essential hypertension with goal blood pressure less [...] as of this encounter (statuses as of 04/03/2024) Resolved Problems Problem Noted Date Diagnosed Date [...] WNL, antiphos lipids WNL Factor V+heteroqygous. FM IY-TGPE-[id number] DIS NEC documented as of this encounter (statuses as of 04/03/2024) Immunizations Name Administration Dates Next Due COVID-19 mRNA, LNP-s, No Pre serve, 2-Dose Series ([employer]) 01/13/2022,07/21/2021,02/01/2021,01/04 COVID-19, MRNA-LNP, 23-24, P F, 30 MCG/0.3 mL, 12 YRS AND ABOVE, IM ([facility]) 09/12/2023 Covid-19, Mrna, Lnp-s, Pf, B ivalent, 30 Mcg, IM, 12 yrs and above ([employer]) 08/16/2022 HEP A - Hepatitis A (Adult [...] money to buy more. Never true 02/10/20 Within the past 12 months, t he [...] Sign Reading Time Taken Comments Blood Pressure 127/68 03/24/2024 10:34 AM EDT Pulse 84 03/24/2024 10:34 AM EDT Temperature 36.7 C (98 F) 03/24/2024 10:34 AM EDT Respiratory Rate 18 03/24/2024 10:34 AM EDT Oxygen Saturation 95% 03/24/2024 10:34 AM EDT Inhaled Oxygen Concentration - - Weight 63 kg (139 lb) 03/24/2024 10:34 AM EDT Height - - Body Mass Index 20.53 03/03/2024 11:47 AM EDT documented in this [...] Nursing Notes * Krysten Valencia RN - 03/24/2024 1:54 PM EDT Goals: Patient will remain free from injury. Possible barriers to meeting goals: ambulating with pole Stability of the patient: Moderately stable - low risk of patient condition declining or worsening Summary regarding today's goals: Met: pt remained free of harm today Patient tolerated treatment well without any acute issues or problems. Patient left facility in stable condition and denied any further needs. * Krysten Valencia RN - 03/24/2024 1:50 PM EDT Chair 8. Port accessed. Patient here today for C3 Gemzar/Abraxane. Overall he is feeling well today. Labs WNL for tx. Chemotherapy/Immunotherapy agents: GEMZAR, ABRAXANE Consent for chemotherapy drug treatment complete, dated, and signed? yes, date - 02/19/2024 Treatment lab parameters met? Yes Has treatment weight changed > than 10%? No Treatment preauthorized? Yes VITALS Filed Vitals: 03/24/24 1034 BP: 127/68 Pulse: 84 Resp: 18 Temp: 36.7 C (98 F) TempSrc: Tympanic SpO2: 95% Weight: 63 kg (139 lb) Urine protein: N/A Patient education completed for [...] Team (Late st Contact Info) Description 04/07/2024 10:00 AM EDT Laboratory Laboratory [facility] [place] 200 [facility] [place] [phone] [place] [address] 04/07/2024 11:15 AM EDT Office Visit Hematology/Oncology [facility] [place] 200 [facility] [place] [phone] Dakota Armando MD [address] [place] [address] [place] [address] 04/07/2024 11:45 AM EDT Hem/Onc Treatment Hematology/Oncology Treatment, [place] 200 [facility], [place] [phone] Rehana, Chair 11 Hem On[address] [place], [place] [address] 04/21/2024 9:30 AM EDT Pharmacy Pharmacy Hematology Oncology [address] [address] [facility] Hem/Onc [facility] [place] [address] 07/21/2024 1:45 PM EDT Office Visit Hematology/Oncology [facility] [address] [place] [phone] Dakota Armando MD 200 [facility] [place] [address] 07/24/2024 11:40 AM EDT Office Visit Family Practice [facility] [address] [place] [address] Sergio Barriga MD [address] [place] [address] Scheduled Procedures Name Priority Associated Diagnoses Date/Ti me COLONOSCOPY FLEXIBLE PROXIMA L DIAGNOSTIC Recall History of adenomatous polyp of colon Health Maintenance Due Date Last Done Comments Cologuard 1996 Fecal Occult Blood Test 1996 Sigmoidoscopy 1996 Depression Screening 09/10/2023 09/10/2022 Colonoscopy 09/14/2023 09/14/2022, 08/26, 04/02/2017 Colorectal Cancer Screening 09/14/2023 GFR 03/24/2025 03/24/2024, 02/23, 02/25/2024, Additional history exists Albumin/Creatinine Ratio 10/16/2025 10/16/2022, [...] this encounter Medical Devices Implanted Type Area Milk Bottling Machine Operator Device Identifier Shelf Expiration Date Model / Serial / Lot Duraclip 16mm Xlg [facility] [id number] Implanted:Qty : 1 on 07/17/2021 by Guillermo Jones DO [place] [employer] [id number] 01/10/2024 [id number] / / [id number] Stent Viabil Biliary 07het6mn - [id number] Implanted:Qty : 1 on 07/17/2021 by Guillermo Jones DO at [facility] [employer] [id number] 03/04/2024 [id number] / [id number] / [id number] Port Implant W/8f Poly Cath - [id number] Implanted:Qty : 1 on 09/13/2023 by Gary Rodriguez DO at OR [facility] Right: Chest CR BARD : PERIPHERAL VASCULAR [id number] 04/24/2025 [id number] / / [id number] documented as of this encounter Visit Diagnoses [...] weight), IV Piggyback, ONCE, 1 dose, On Sat03/24/24 at 1230, Administer over 30 Minutes Start Infusion 03/24/2024 12:15 PM EDT 1,800 mg 644 mL/hr hEParin 100 UNIT/ML Lock Flush inj 500 Units 500 Units (5 mL), IV Lock, PRN Other, IV Flush, Starting on Sat03/24/24 at 1029, Until Sat03/24/24 at 1453, For 24 hours, Do not flush if lock, PICC, or central line not in place; IV infusing or unable to flush. Given 03/24/2024 12:46 PM EDT 500 Units NSS infusion Intravenous, at 50 mL/hr, PRN, Starting on Sat03/24/24 at 1130, Until Sat03/24/24 at 1453, Maintenance line Start Infusion 03/24/2024 10:46 AM EDT 50 mL/hr ondansetron (Zofran) tab 8 mg 8 mg, Oral, ONCE, On Sat03/24/24 at 1130, For 1 dose, Give 30 minutes prior to chemotherapy. Given 03/24/2024 10:56 AM EDT 8 mg PACLitaxel protein-bound (Abraxane) inj 200 mg 200 mg (rounded from 215 mg = 125 mg/m2 1.72 m2 Treatment Plan BSA from Recorded weight), IV Piggyback, ONCE, 1 dose, On Sat03/24/24 at 1200, Administer over 30 Minutes, PROTECT FROM LIGHT Use Dedicated line Without Filter Start Infusion 03/24/2024 11:26 AM EDT 200 mg 80 mL/hr sodium chloride 0.9 % flush central line 10 mL 10 mL, IV Push, PRN Other, IV Flush, Starting on Sat03/24/24 at 1029, Until Sat03/24/24 at 1453, For 24 hours, Do not flush if lock, PICC, or central line not in place; IV infusing or unable to flush. Given 03/24/2024 12:46 PM EDT 10 mL documented in this encounter Advance Directives Documents on File Type Date Recorded Patient Wet Pan Mixer Expl anation Advance Directives and Living Will 10/23/2022 4:43 PM Virgiine Cramer KarlLibhartLivingWill .PDF Latest Code Status on File Code Status Date Activated Date Inactivated Comments Full Code 07/16/2021 10:04 AM 07/18/2021 6:28 PM This order reflects the patients wishes and were consensually agreed upon. Healthcare Agents on File Name Relationship Healthcare Agent Relationship Communication Virginie Cramer Spouse Health Care Agen t (per Health Care Power of Blood Bank Technician document) [email or web address] [email or web address] Sibling First Alternate Health Care Agent (per Health Care Power of Blood Bank Technician document) [email or web address] Care Teams Can Machine Operator Relationship Specialty Start Date End Date Sergio Barriga MD [address] [place] [address] PCP - General Family Medicine 08/07/19 documented as of this encounter
--- OUTSIDE RECORDS SUMMARY | 2024-04-18 23:51 | External Medical Summary | Summary of Care ---
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) Procedures CT LEUCOVORIN CALCIUM INJECTION CT FLUOROURACIL INJECTION CT IRINOTECAN INJECTION CT OXALIPLATIN CT FOSAPREPITANT INJECTION BEVACIZUMAB-BVZR, BIOSIMILAR, 10 MG (ZIRABEV), IV CT INJECTION, UDENYCA 0.5 MG Dakota Armando MD [address] [employer], [place] [address] Anc Hem/Onc [facility] DEPT CLOSED - 10/08/23 [address] [place] [address] Referral ID Status Reason Start Date Expiration Date Visits Re quested Visits Authorized [id number] Closed 08/30/2023 11/24/[phone] Encounter Details Date Type Department Care Team (Latest Contact Info) Description 02/04/2024 9:15 AM EDT Hem/Onc Treatment Hematology/Oncolog y Treatment, [place] [address] [place] [phone] Rehana, Chair 10 Hem Onc [address] [place] [address] Encounter for antineoplastic chemotherapy*; 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); 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) Allergies Active Allergy Reactions Criticality Noted Date Comments Lisinopril Cough Low 08/07/2019 documented as of this encounter (statuses as of 03/27/2024) Medications Medication Sig Dispensed Refills Start Date End Date Status Boost 100 Calorie Smart Oral Liquid Take by mouth. 0 Act miley Multi Vitamin Daily Oral Tablet Take by mouth. 0 Act miley Aspirin 81 MG Oral Tablet Delayed Release Take 1 Tablet by mouth in the morning. 0 Active Pancrelipase (Dfe-Vcsn-Jrto) 64308-61727 UNIT Oral Capsule Delayed Release Particles (Creon 36781) 2 cap with meals, 1 with larger snack. (up to 8/day) 240 Capsule 11 09/10/2022 Active Continuation of patient use of medical marijuana is approved Inhale 1 Capsule by mouth as needed. 0 09/10/2022 Active Pantoprazole Sodium 40 MG Oral Tablet Delayed Release (Protonix) TAKE 1 TABLET BY MOUTH EVERY MORNING 90 Tablet 3 07/03/2023 Active Lidocaine-Priloca ine 2.5-2.5 % External Cream (Emla)Indications :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),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) APPLY TO SKIN OVER MEDIPORT & COVER 1HR PRIOR TO ACCESSING. 30 g 1 08/30/2023 Active Additional Information Patient not taking.Reported on 12/17/2023 Ondansetron HCl 8 MG Oral Tablet (Zofran)Indicatio ns: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),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) Take 1 Tablet by mouth every 8 hours as needed for Nausea. 30 Tablet 3 08/30/2023 Active Prochlorperazine Maleate 10 MG Oral Tablet (Compazine)Indica tions: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),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) Take 1 Tablet by mouth every 6 hours as needed for Nausea. 30 Tablet 3 08/30/2023 Active OLANZapine 10 MG Oral Tablet (ZyPREXA)Indicati ons: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),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) Take 1 tablet by mouth before bed x4 nights starting day 1 of each chemo cycle 48 Tablet 0 08/30/2023 Active Loratadine 10 MG Oral Tablet (Claritin)Indicat ions: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),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) Take 1 tablet daily x5 days starting the day of chemo pump disconnect 60 Tablet 0 09/03/2023 Active Atorvastatin Calcium 40 MG Oral Tablet (Lipitor) TAKE 1 TABLET BY MOUTH EVERY MORNING 90 Tablet 2 09/25/2023 Active traZODone HCl 100 MG Oral Tablet (Desyrel)Indicati ons:Persistent insomnia TAKE 1 TABLET BY MOUTH AT BEDTIME 90 Tablet 3 12/19/2023 Active ALPRAZolam 1 MG Oral Tablet (xaNAX)Indication s:Chronic insomnia TAKE ONE TABLET BY MOUTH AT BEDTIME NEEDED FOR SLEEP 30 Tablet 2 12/27/2023 Active Amoxicillin-Pot Clavulanate 875-125 MG Oral Tablet (Augmentin)Indica tions:Pneumonia of right lower lobe due to infectious organism Take 1 Tablet by mouth in the morning and 1 Tablet before bedtime. Do all this for 7 days. 14 Tablet 0 11/05/2023 4 Discontinue d(Medicatio n List Clean Up) documented as of this encounter (statuses as of 03/27/2024) Active Problems Problem Noted Date Diagnosed Date Malignant neoplasm of body of pancreas 3 Metastasis to liver 08/30/2023 Encounter for antineoplastic chemotherapy 2022 History of carcinoma of pancreas 07/18/2023 Post-viral cough syndrome 07/09/2023 Upper airway cough syndrome 07/09/2023 History of 2019 novel coronavirus disease (COVID -19) 10/16/2022 Coronary artery disease invo lving [place] coronary artery of [place] heart without angina pectoris 08/20/2022 Overview: Severe [...] lipids WNL Factor V+heteroqygous. 04/10 colon-Dr Eller [facility] 2 polyps 1 tubular adenoma. Kevin 6y 2013 sleep study [facility] WNL [address] Elena [facility] Essential hypertension with goal blood pressure [...] as of this encounter (statuses as of 03/27/2024) Resolved Problems Problem Noted Date Diagnosed Date [...] WNL, antiphos lipids WNL Factor V+heteroqygous. FM PR-GNKN-YVTRA DIS NEC documented as of this encounter (statuses as of 03/27/2024) Immunizations Name Administration Dates Next Due COVID-19 mRNA, LNP-s, No Pre serve, 2-Dose Series ([employer]) 01/13/2022,07/21/2021,02/01/2021,01/04 COVID-19, MRNA-LNP, 23-24, P F, 30 MCG/0.3 mL, 12 YRS AND ABOVE, IM ([facility] [facility]) 09/12/2023 Covid-19, Mrna, Lnp-s, Pf, B ivalent, 30 Mcg, IM, 12 yrs and above ([employer]) 08/16/2022 HEP A - Hepatitis A (Adult [...] of this encounter Nursing Notes * Jing Bray, RN - 02/04/2024 4:10 PM EDT Pt completed treatment without issues. VAD flushed yielding positive blood return. 5FU CADD pump connected; infusion initiated. Goals: Pt will remain free from injury. Possible barriers to meeting goals: ambulation with IV pole Stability of the patient: Moderately stable - low risk of patient condition declining or worsening Summary regarding today's goals: Met: Pt remained free from injury during treatment today. Discharged in stable condition. AB assisted. * Jing Bray RN - 02/04/2024 9:34 AM EDT Chair 10 Chemotherapy/Immunotherapy agents: OXALIPLATIN/IRINOTECAN/5FU Consent for chemotherapy drug treatment complete, dated, and signed? yes, date - 09/03/23 Treatment lab parameters met? Yes Has treatment weight changed > than 10%? No Treatment preauthorized? Yes VITALS Filed Vitals: Urine protein: N/A Patient education completed for treatment? Yes Blood transfusion consent signed and complete? NA Return appointment scheduled? Yes Patient had provider visit today? Yes - Ok to release order and treat per provider VAD accessed; D5W infusing. Safety and Risk for Injury Patient [...] Care Team (Late st Contact Info) Description 03/31/2024 9:45 AM EDT Pharmacy Pharmacy Hematology Oncology [place] [address] [place] [address] [facility] Hem/Onc [address] [place] [address] 04/07/2024 10:00 AM EDT Laboratory Laboratory [facility] [place] [address] [place], [place] [phone] Rehana, Lab [facility] [address] [place], [place] [address] 04/07/2024 11:15 AM EDT Office Visit Hematology/Oncology [facility] [place] [address] [place], [place] [phone] Dakota Armando MD [address] [place], [place] [address] 04/07/2024 11:45 AM EDT Hem/Onc Treatment Hematology/Oncology [facility] [address] [place], [place] [phone] Rehana, Chair [address] [place], [place] [address] 07/20/2024 10:15 AM EDT Office Visit Dermatology [facility] [place] [address] [place], [place] [address] Cal Jernigan MD 200 [facility] [place], [place] [address] 07/21/2024 1:45 PM EDT Office Visit Hematology/Oncology [facility] [place] [address] [place], [place] [phone] Dakota Armando MD [address] [place] [address] 07/24/2024 11:40 AM EDT Office Visit Family Practice [facility] [address] [place] [address] Sergio Barriga MD [address] [place] [address] Scheduled Procedures Name Priority Associated Diagnoses Date/Ti [...] this encounter Medical Devices Implanted Type Area Rope Tow Operator Device Identifier Shelf Expiration Date Model / Serial / Lot Duraclip 16mm Xlg Repostn - [id number] Implanted:Qty : 1 on 07/17/2021 by Guillermo Jones DO at [facility]OSCOPY [facility] [employer] REYNALDO [id number] 01/10/2024 [id number] / / [id number] Stent Viabil Biliary [id number] - [id number] Implanted:Qty : 1 on 07/17/2021 by Guillermo Jones DO at ENDOSCOPY [facility] [employer] REYNALD[employer] [id number] 03/04/2024 [id number] / [id number] / [id number] Port Implant W/8f Poly Cath - [id number] Implanted:Qty : 1 on 09/13/2023 by Gary Rodriguez DO at OR [facility] Right: Chest CR BARD : PERIPHERAL VASCULAR [id number] 04/24/2025 [id number] / / [id number] documented as of this encounter Visit Diagnoses Diagnosis Encounter for antineoplastic chemotherapy- Primary 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) Malignant neoplasm of body of pancreas documented in this encounter Administered Medications Inactive Administered Medications - up to 3 most recent administrations Medication Order MAR Action Action Date Dose Rate Site Atropine sulfate inj 0.4 mg 0.4 mg, IV Push, ONCE, On Sat02/04/24 at 1015, For 1 dose, Give before CPT-11 Given 02/04/2024 12:09 PM EDT 0.4 mg D5W IV solution Intravenous, at 50 mL/hr, CONTINUOUS, Starting on Sat02/04/24 at 1015, Until Sat02/04/24 at 2012 Start Infusion 02/04/2024 9:30 AM EDT 500 mL 50 mL/hr Fluorouracil (5-Fu) 4,300 mg for Home Infusion 4,300 mg (rounded from 4,296 mg = 2,400 mg/m2 1.79 m2 Treatment Plan BSA from Recorded weight), Intravenous, Administer over 46 Hours, Home Infusion Pharmacy to specify base solution and volume., ONCE, 1 dose, On Sat02/04/24 at 1230 Start Infusion 02/04/2024 1:54 PM EDT 4,300 mg 3 mL/hr Fosaprepitant Dimeglumine (Emend) 150 mg, ondansetron (Zofran) 16 mg, dexamethasone sodium phosphate 12 mg in NSS 250 mL Infusion 150 mg, IV Piggyback, ONCE, 1 dose, On Sat02/04/24 at 1015, Administer over 30 Minutes, Give 30 minutes prior to chemotherapy. Infuse over 30 minutes. Start Infusion 02/04/2024 9:40 AM EDT 150 mg 500 mL/hr irinotecan HCl (Camptosar) 260 mg in D5W 500 mL infusion 260 mg (rounded from 268.5 mg = 150 mg/m2 1.79 m2 Treatment Plan BSA from Recorded weight), IV Piggyback, ONCE, 1 dose, On Sat02/04/24 at 1100, Administer over 90 Minutes, PROTECT FROM LIGHT Start Infusion 02/04/2024 12:12 PM EDT 260 mg 333.33 mL/hr leucovorin calcium 700 mg in D5W 250 mL INFUSION 700 mg (rounded from 716 mg = 400 mg/m2 1.79 m2 Treatment Plan BSA from Recorded weight), IV Piggyback, ONCE, 1 dose, On Sat02/04/24 at 1100, Administer over 90 Minutes, Run concurrently with irinotecan immediately prior to 5FU Start Infusion 02/04/2024 12:12 PM EDT 700 mg 166.67 mL/hr Oxaliplatin (Eloxatin) 150 mg in D5W 500 mL infusion 150 mg (rounded from 152.15 mg = 85 mg/m2 1.79 m2 Treatment Plan BSA from Recorded weight), IV Piggyback, ONCE, 1 dose, On Sat02/04/24 at 1015, Administer over 120 Minutes, Flush with D5W only! Start Infusion 02/04/2024 10:17 AM EDT 150 mg 250 mL/hr sodium chloride 0.9 % flush central line 10 mL 10 mL, IV Push, PRN Other, IV Flush, Starting on Sat02/04/24 at 0932, Until Sat02/04/24 at 2013, For 24 hours, Do not flush if lock, PICC, or central line not in place; IV infusing or unable to flush. Given 02/04/2024 1:52 PM EDT 10 mL documented in this encounter Advance Directives Documents on File Type Date Recorded Patient Line Maintenance Supervisor Expl anation Advance Directives and Living Will 10/23/2022 4:43 PM Virginie Rollins .PDF Latest Code Status on File Code Status Date Activated Date Inactivated Comments Full Code 07/16/2021 10:04 AM 07/18/2021 6:28 PM This order reflects the patients wishes and were consensually agreed upon. Healthcare Agents on File Name Relationship Healthcare Agent Relationship Communication Virginie Bela Spouse Health Care Agen t (per Health Care Power of Hydrotechnical Specialist document) [email or web address] Sibling First Alternate Health Care Agent (per Health Care Power of Hydrotechnical Specialist document) [email or web address] Care Teams Remediation Project Engineer Relationship Specialty Start Date End Date Sergio Barriga MD [address] [place] [address] PCP - General Family Medicine 08/07/19 documented as of this encounter
--- OUTSIDE RECORDS SUMMARY | 2024-04-18 23:51 | External Medical Summary | Summary of Care ---
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) Procedures [place] PACLITAXEL PROTEIN BOUND [place] IN GEMCITABINE HCL NOS 200MG Dakota Armando MD 200 [place] [address] Anc Hem/Onc [address] [address] Referral ID Status Reason Start Date Expiration Date V isits Requested Visits Authorized [id number] Authorized 02/14/2024 11/24/[phone] Encounter Details Date Type Department Care Team (Latest Contact Info) Description 03/10/2024 10:30 AM EDT Hem/Onc Treatment Hematology/Oncolog y Treatment, [address] [address] Rehana Chair 4 Hem Onc [address] [place] [address] Encounter for antineoplastic chemotherapy*; Malignant neoplasm of [...] mouth in the morning. 0 Active Pancrelipase (Mpn-Ogro-Jybh) 61241-[address] UNIT Oral Capsule Delayed Release Particles (Creon 52637) 2 cap with meals, 1 with larger [...] -19) 10/16/2022 Coronary artery disease invo lving [place] coronary artery of [place] heart without angina pectoris 08/20/2022 Overview: Severe [...] lipids WNL Factor V+heteroqygous. 04/10 colon-Dr Case [facility] 2 polyps 1 tubular adenoma. Kevin 5y 2013 sleep study [facility] WNL [address] Elena [facility] Essential hypertension with goal blood pressure [...] WNL, antiphos lipids WNL Factor V+heteroqygous. FM WL-KGBM-[id number] DIS NEC documented as of this encounter (statuses as of 04/03/2024) Immunizations Name Administration Dates Next Due COVID-19 mRNA, LNP-s, No Pre serve, 2-Dose Series (Familink) 01/13/2022,07/21/2021,02/01/2021,01/04 COVID-19, MRNA-LNP, 23-24, P F, 30 MCG/0.3 mL, 12 YRS AND ABOVE, IM ([email or web address]) 09/12/2023 Covid-19, Mrna, Lnp-s, Pf, B ivalent, 30 Mcg, IM, 12 yrs and above (Familink) 08/16/2022 HEP A - Hepatitis A (Adult [...] Sign Reading Time Taken Comments Blood Pressure 128/90 03/10/2024 11:02 AM EDT Pulse 78 03/10/2024 11:02 AM EDT Temperature 36.4 C (97.5 F) 03/10/2024 11:02 AM E DT Respiratory Rate 18 03/10/2024 11:02 AM EDT Oxygen Saturation 96% 03/10/2024 11:02 AM EDT Inhaled Oxygen Concentration - - Weight 63.7 kg (140 lb 6.4 oz) 03/10/2024 11:02 AM EDT Height - - Body Mass Index 20.73 03/03/2024 11:47 AM EDT documented in this [...] Nursing Notes * Jing Bray RN - 03/10/2024 1:17 PM EDT Pt completed treatment without issues. Pt reported that he received his new oral chemo (Lumakras) in the mail yesterday; pharmacy notified. Advised pt to wait to start medication after he is contacted by pharmacy; pt verbalized understanding. Goals: Pt will remain free from injury. Possible barriers to meeting goals: ambulation with IV pole Stability of the patient: Moderately stable - low risk of patient condition declining or worsening Summary regarding today's goals: Met: Pt remained free from injury during treatment today. Discharged in stable condition. * Jing Bray RN - 03/10/2024 11:03 AM EDT Chair 3 Chemotherapy/Immunotherapy agents: Abraxane and GEMZAR Consent for chemotherapy drug treatment complete, dated, and signed? yes, date - 02/19/24 Treatment lab parameters met? Yes Reviewed LFTs with césar Jacobsen to proceed with treatment Has treatment weight changed > than 10%? No Treatment preauthorized? Yes VITALS Filed Vitals: 03/10/24 1102 BP: 128/90 Pulse: 78 Resp: 18 Temp: 36.4 C (97.5 F) SpO2: 96% Weight: 63.7 kg (140 lb 6.4 oz) Urine protein: N/A Patient education completed for treatment? Yes Blood transfusion consent signed and complete? NA Return appointment scheduled? Yes Patient had provider visit today? No - If no provider visit must complete Pretreatment Assessment PRE-TREATMENT ASSESSMENT: NEURO: fever/chills: pt reported fever/chills 2 days post treatment, lasting only 1 day and fatigue:stable CV/RESP: denies symptoms GI/: denies symptoms OTHER: denies any additional symptoms PAIN: 0 VAD accessed; NSS infusing. Safety and Risk [...] Description 04/07/2024 10:00 AM EDT Laboratory Laboratory [facility] [place] [address] [facility] [place] [phone] Rehana, Lab [address] [facility] [place] [address] 04/07/2024 11:15 AM EDT Office Visit Hematology/Oncology [facility] [place] [address] [facility] [place] [phone] Dakota Armando MD 200 [place] [address] 04/07/2024 11:45 AM EDT Hem/Onc Treatment Hematology/Oncology Treatment, [place] [address] [place] [address] Rehana, Chair 11 Hem On[address] [place] [address] 04/21/2024 9:30 AM EDT Pharmacy Pharmacy Hematology Oncology [facility] [address] [place] [address] [facility], [facility] Hem/Onc [address] [place] [address] 07/21/2024 1:45 PM EDT Office Visit Hematology/Oncology [facility] [address] [facility] [place], [place] [address] Dakota Armando MD 200 [facility] [place] [address] 07/24/2024 11:40 AM EDT Office Visit Family [facility] [address] [place] [address] Sergio Barriga MD [address] [place] [address] Scheduled Procedures Name Priority Associated Diagnoses Date/Ti [...] this encounter Medical Devices Implanted Type Area Vessel Engineer Device Identifier Shelf Expiration Date Model / Serial / Lot Duraclip 16mm Xlg Repostn - [id number] Implanted:Qty : 1 on 07/17/2021 by Guillermo Jones DO at ENDOSCOPY [facility] CONMED REYNALDO [id number] 01/10/2024 [id number] / / [id number] Stent Viabil Biliary [id number] - [id number] Implanted:Qty : 1 on 07/17/2021 by Guillermo Jones DO at ENDOSCOPY [facility] WideoMED REYNALDO [id number] 03/04/2024 [id number] / [id number] / [id number] Port Implant W/8f Poly Cath - [id number] Implanted:Qty : 1 on 09/13/2023 by Gary Rodriguez DO at OR [facility] Right: Chest CR BARD : PERIPHERAL VASCULAR [id number] 04/24/2025 [id number] / / [id number] documented as of this encounter Visit Diagnoses [...] weight), IV Piggyback, ONCE, 1 dose, On Sat03/10/24 at 1315, Administer over 30 Minutes Start Infusion 03/10/2024 12:33 PM EDT 1,800 mg 500 mL/hr hEParin 100 UNIT/ML Lock Flush inj 500 Units 500 Units (5 mL), IV Lock, PRN Other, IV Flush, Starting on Sat03/10/24 at 1101, Until Sat03/10/24 at 1720, For 24 hours, Do not flush if lock, PICC, or central line not in place; IV infusing or unable to flush. Given 03/10/2024 1:07 PM EDT 500 Units NSS infusion Intravenous, at 50 mL/hr, PRN, Starting on Sat03/10/24 at 1215, Until Sat03/10/24 at 1720, Maintenance line Start Infusion 03/10/2024 11:10 AM EDT 50 mL/hr ondansetron (Zofran) tab 8 mg 8 mg, Oral, ONCE, On Sat03/10/24 at 1215, For 1 dose, Give 30 minutes prior to chemotherapy. Given 03/10/2024 11:13 AM EDT 8 mg PACLitaxel protein-bound (Abraxane) inj 200 mg 200 mg (rounded from 215 mg = 125 mg/m2 1.72 m2 Treatment Plan BSA from Recorded weight), IV Piggyback, ONCE, 1 dose, On Sat03/10/24 at 1245, Administer over 30 Minutes, PROTECT FROM LIGHT Use Dedicated line Without Filter Start Infusion 03/10/2024 11:51 AM EDT 200 mg 80 mL/hr sodium chloride 0.9 % flush central line 10 mL 10 mL, IV Push, PRN Other, IV Flush, Starting on Sat03/10/24 at 1101, Until Sat03/10/24 at 1720, For 24 hours, Do not flush if lock, PICC, or central line not in place; IV infusing or unable to flush. Given 03/10/2024 1:07 PM EDT 10 mL documented in this encounter Advance Directives Documents on File Type Date Recorded Patient Drafter Geological Expl anation Advance Directives and Living Will [...] Agen t (per Health Care Power of Emergency Communications Operator document) [email or web address] First Alternate Health Care Agent (per Health Care Power of Emergency Communications Operator document) [email or web address] Care Teams International Affairs Vice President Relationship Specialty Start Date End Date Sergio Barriga MD [address] [place] [address] PCP - General Family Medicine 08/07/19 documented as of this encounter
--- OUTSIDE RECORDS SUMMARY | 2024-04-18 23:51 | External Medical Summary | Summary of Care ---
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) Procedures [place] LEUCOVORIN CALCIUM INJECTION [place] FLUOROURACIL INJECTION [place] IRINOTECAN INJECTION [place] OXALIPLATIN [place] FOSAPREPITANT INJECTION BEVACIZUMAB-BVZR, BIOSIMILAR, 10 MG (ZIRABEV), IV MN INJECTION, UDENYCA 0.5 MG Dakota Armando MD [address] [employer] [employer], [place] [address] Anc Hem/Onc [facility] DEPT CLOSED - 10/08/23 [address] [place] [address] Referral ID Status Reason Start Date Expiration Date Visits Re quested Visits Authorized [id number] Closed 08/30/2023 11/24/[phone] Encounter Details Date Type Department Care Team (Latest Contact Info) Description 02/04/2024 9:15 AM EDT Hem/Onc Treatment Hematology/Oncolog y Treatment, [place] [address] [place] [address] Rehana, Chair 10 Hem Onc [address] [place] [address] Encounter for antineoplastic chemotherapy*; Metastasis to liver [...] mouth in the morning. 0 Active Pancrelipase (Yxz-Jdqb-Cxjp) 46[address] UNIT Oral Capsule Delayed Release Particles (Creon 72928) 2 cap with meals, 1 with larger [...] -19) 10/16/2022 Coronary artery disease invo lving [place] coronary artery of [place] heart without angina pectoris 08/20/2022 Overview: Severe [...] lipids WNL Factor V+heteroqygous. 04/10 colon-Dr Eller [facility] 2 polyps 1 tubular adenoma. Kevin 6y 2013 sleep study [facility] WNL [address] Elena [facility] Essential hypertension with goal blood pressure [...] WNL, antiphos lipids WNL Factor V+heteroqygous. FM LV-QNRP-TWCAF DIS NEC documented as of this encounter (statuses as of 03/27/2024) Immunizations Name Administration Dates Next Due COVID-19 mRNA, LNP-s, No Pre serve, 2-Dose Series (Solx) 01/13/2022,07/21/2021,02/01/2021,01/04 COVID-19, MRNA-LNP, 23-24, P F, 30 MCG/0.3 mL, 12 YRS AND ABOVE, IM ([facility]) 09/12/2023 Covid-19, Mrna, Lnp-s, Pf, B ivalent, 30 Mcg, IM, 12 yrs and above (Solx) 08/16/2022 HEP A - Hepatitis A (Adult [...] 9:45 AM EDT Pharmacy Pharmacy Hematology Oncology [place] [address] [place] [address] [facility], [facility] Hem/Onc [address] [place] [address] 04/07/2024 10:00 AM EDT Laboratory Laboratory [facility] [place] [address] [place], [place] [phone] Rehana, Lab [facility] [address] [place], [place] [address] 04/07/2024 11:15 AM EDT Office Visit Hematology/Oncology [facility] [place] [address] [place], [place] [phone] Dakota Armando MD [address] [place], [place] [address] 04/07/2024 11:45 AM EDT Hem/Onc Treatment Hematology/Oncology [facility] [address] [place], [place] [phone] Rehana, Chair 9 Hem On[address] [place], [place] [address] 07/20/2024 10:15 AM EDT Office Visit Dermatology [facility] [place] [address] [place], [place] [address] Cal Jernigan MD 200 [facility] [place], [place] [address] 07/21/2024 1:45 PM EDT Office Visit Hematology/Oncology [facility] [place] [address] [place], [place] [phone] Dakota Armando MD [address] [place] [address] 07/24/2024 11:40 AM EDT Office Visit Family Practice [facility] [address] [place] [address] Sergio Barriga MD [address] [place] [address] Scheduled Procedures Name Priority Associated Diagnoses Date/Ti [...] this encounter Medical Devices Implanted Type Area Hull Outfit Supervisor Device Identifier Shelf Expiration Date Model / Serial / Lot Duraclip 16mm Xlg Repostn - [id number] Implanted:Qty : 1 on 07/17/2021 by Guillermo Jones DO at ENDOSCOPY [facility] 1Ring REYNALDO [id number] 01/10/2024 [id number] / / [id number] Stent Viabil Biliary [id number] - [id number] Implanted:Qty : 1 on 07/17/2021 by Guillermo Jones DO at ENDOSCOPY [facility] 1Ring REYNALDO [id number] 03/04/2024 [id number] / [id number] / [id number] Port Implant W/8f Poly Cath - [id number] Implanted:Qty : 1 on 09/13/2023 by Gary Rodriguez DO at OR [facility] Right: Chest CR BARD : PERIPHERAL VASCULAR [id number] 04/24/2025 [id number] / / [id number] documented as of this encounter Visit Diagnoses [...] Documents on File Type Date Recorded Patient Building Rigger Expl anation Advance Directives and Living Will [...] Agen t (per Health Care Power of Marionette Performer document) [email or web address] [email or web address] First Alternate Health Care Agent (per Health Care Power of Marionette Performer document) Care Teams Infectious Disease Technician Relationship Specialty Start Date End Date Sergio Barriga MD [address] [place] [address] PCP - General Family Medicine 08/07/19 documented as of this encounter
--- OUTSIDE RECORDS SUMMARY | 2024-04-18 23:51 | External Medical Summary | Summary of Care ---
Author Name Unknown Organization [facility] Address [address] [place] [address] Phone [phone] Care Team Providers Care Dredge Or Barge Shore Hand Name Role Phone Sergio Barriga MD Primary Care Provider + Reason for Visit * Reason Comments Medication Management Encounter Details Date Type Department Care Team (Late st Contact Info) Description 03/31/2024 9:45 AM EDT Pharmacy Pharmacy Hematology Oncology [facility] [address] [place] [address] [facility] Hem/Onc [address] [place], [place] [id number] Malignant neoplasm of pancreas, unspecified location of malignancy (HCC)* Allergies Active Allergy Reactions Criticality Noted Date Comments Lisinopril Cough Low 08/07/2019 documented as of this encounter (statuses as of 03/31/2024) Medications Medication Sig Dispensed Refills Start Date End Date Status Boost 100 Calorie Smart Oral Liquid Take by mouth. 0 Act miley Multi Vitamin Daily Oral Tablet Take by mouth. 0 Act miley Aspirin 81 MG Oral Tablet Delayed Release Take 1 Tablet by mouth in the morning. 0 Active Pancrelipase (Yac-Qpqm-Suan) 1977[address]-57[address] UNIT Oral Capsule Delayed Release Particles (Creon 18374) 2 cap with meals, 1 with larger [...] 12/17/2023 Ondansetron HCl 8 MG Oral Tablet (Zofran)Indication [...] as of this encounter (statuses as of 03/31/2024) Active Problems Problem Noted Date Diagnosed Date Malignant neoplasm of body of pancreas 3 Metastasis to liver 08/30/2023 Encounter for antineoplastic chemotherapy 2022 History of carcinoma of pancreas 07/18/2023 Post-viral cough syndrome 07/09/2023 Upper airway cough syndrome 07/09/2023 History of 2019 novel coronavirus disease (COVID -19) 10/16/2022 Coronary artery disease invo lving [place] coronary artery of [place] heart without angina pectoris 08/20/2022 Overview: Severe [...] lipids WNL Factor V+heteroqygous. 04/10 colon-Dr Eller [facility] 2 polyps 1 tubular adenoma. Kevin 6y 2013 sleep study [facility] WNL [address] Elena [facility] Essential hypertension with goal blood pressure less [...] as of this encounter (statuses as of 03/31/2024) Resolved Problems Problem Noted Date Diagnosed Date [...] WNL, antiphos lipids WNL Factor V+heteroqygous. FM FE-LDIS-UWQNI DIS NEC documented as of this encounter (statuses as of 03/31/2024) Immunizations Name Administration Dates Next Due COVID-19 mRNA, LNP-s, No Pre serve, 2-Dose Series (Spare Backup) 01/13/2022,07/21/2021,02/01/2021,01/04 COVID-19, MRNA-LNP, 23-24, P F, 30 MCG/0.3 mL, 12 YRS AND ABOVE, IM ([facility]) 09/12/2023 Covid-19, Mrna, Lnp-s, Pf, B ivalent, [...] as of this encounter Progress Notes * Jen Teixeira, formerly [facility] - 03/31/2024 3:30 PM EDT MEDICATION THERAPY MANAGEMENT SOTORASIB TREATMENT PROGRESS NOTE Rafael Cramer [phone] Patient Phone Numbers Preferred Lab: [facility] Specialty Pharmacy: Brandy Communication: Spoke to: Patient Treatment: Medication: Sotorasib (Lumakras) Indication/Staging/Diagnosis Code: met pancreatic cancer, KRAS G12C mutation / C25.1 Dose: 960mg (8-120mg tab) daily Administration: +/- food Start Date: 03/11/24 Primary Decision Science Analyst/Oncologist: Dr. Gina Armando Additional Therapy: Gemcitabine Abraxane Supportive Care Meds: Olanzapine Ondansetron Prochlorperazine Prophylactic Meds: none Treatment History: 08/07/21: Whipple's procedure 08/2021-01/2022: gemcitabine + capecitabine 09/17/23-01/2024: mFOLFIRINOX Interval History: Per OV 03/17/24, pt to complete 2 cycles of gemcitabine/abraxane and then will consider discontinuing for single agent sotorasib No concerns, tolerating therapy well Changes to medication list since last visit? No Assessment and Plan: Continue sotorasib and q2wk labs (next due with OV) Assessment of compliance: compliant Assessment of adverse effects attributed to drug therapy: Nausea/Vomiting - absent Diarrhea - absent Edema - absent Rash - absent Musculoskeletal pain - absent Dose adjustment needed based on lab or adverse drug reaction? No Follow up: 1 week OV/labs; 3 weeks MTM with labs Jen Teixeira, PharmD, BCOP Clinical Pharmacist, [facility] Oral Chemotherapy [facility] 03/31/2024, 3:35 PM Monitoring Parameters: Estimated CrCl Serum creatinine: 0.9 mg/dL 03/24/24 0922 Estimated creatinine clearance: 65.2 mL/min Hepatitis panel Latest Reference Range & Units 08/28/21 11:02 Hepatitis B Surface Antigen Negative Negative Hepatitis B Surface Antibody, Quantitative mIU/mL <3.5 HEPATITIS B SURFACE ANTIBODY Rpt Hepatitis B Surface Antibody, Interpretation NOT immune to Hepatitis B Virus Hepatitis B Surface Antibody, Qualitative Negative Hepatitis B Core Antibodies IgG and IgM Negative Negative Suggested lab monitoring CBCd as indicated, CMP every 3 weeks for first 3 months, then monthly Treatment Parameters Per PI Pertinent labs: N/A Time Spent on Encounter: 6 - 10 minutes Encounter Group: Oncology Encounter Interventions Item Category: Oral Chemotherapy Sotorasib Problem/Rationale: Safety: Needs additional monitoring - Medication Requires monitoring Pharmacist Intervention(s): Toxicity monitoring Magnitude of Intervention: Monitoring with direction (Level 1) documented in this encounter Plan of Treatment Upcoming Encounters Date Type Department Care Team (Late st Contact Info) Description 04/07/2024 10:00 AM EDT Laboratory Laboratory [facility] [address] [place] [phone] [facility] [place] [address] [place] [address] 04/07/2024 11:15 AM EDT Office Visit Hematology/Oncology [facility] [address] [place] [phone] Dakota Armando MD 200 [facility] [place] [address] 04/07/2024 11:45 AM EDT Hem/Onc Treatment Hematology/Oncology [facility] [address] [place] [phone] Rehana, Chair 11 Hem Onc Sc[address] [place] [address] 04/21/2024 9:30 AM EDT Pharmacy Pharmacy Hematology Oncology [facility] [address] [place] [address] [facility], [facility] Hem/Onc [address] [place] [address] 07/20/2024 10:15 AM EDT Office Visit Dermatology [facility] [address] [place] [address] Cal Jernigan MD 200 [facility] [place] [address] 07/21/2024 1:45 PM EDT Office Visit Hematology/Oncology [facility] [address] [place] [address] Dakota Armando MD [address] [facility] [place] [address] 07/24/2024 11:40 AM EDT Office Visit Family Practice [facility] [address] [place] [address] Sergio Barriga MD [address] [place] [address] Scheduled Procedures Name Priority Associated Diagnoses Date/Ti [...] this encounter Medical Devices Implanted Type Area Sandblast Or Shotblast Equipment Tender Device Identifier Shelf Expiration Date Model / Serial / Lot Duraclip 16mm Xlg Repostn - [id number] Implanted:Qty : 1 on 07/17/2021 by Guillermo Jones DO at ENDOSCOPY [facility] CONMED REYNALDO [id number] 01/10/2024 [id number] / / [id number] Stent Viabil Biliary [id number] - [id number] Implanted:Qty : 1 on 07/17/2021 by Guillermo Jones DO at ENDOSCOPY [facility] CONMED REYNALDO [id number] 03/04/2024 [id number] / [id number] / [id number] Port Implant W/8f Poly Cath - [id number] Implanted:Qty : 1 on 09/13/2023 by Gary Rodriguez DO at OR [facility] Right: Chest CR BARD : PERIPHERAL VASCULAR [id number] 04/24/2025 [id number] / / [id number] documented as of this encounter Visit Diagnoses Diagnosis Malignant neoplasm of pancreas, unspecified location of malignancy (HCC)- Primary documented in this encounter Advance Directives Documents on File Type Date Recorded Patient Business Analyst Ecommerce Expl anation Advance Directives and Living Will 10/23/2022 4:43 PM Virginie HansenlLibhartLivingWiyonas .PDF Latest Code Status on File Code Status Date Activated Date Inactivated Comments Full Code 07/16/2021 10:04 AM 07/18/2021 6:28 PM This order reflects the patients wishes and were consensually agreed upon. Healthcare Agents on File Name Relationship Healthcare Agent Relationship Communication Virginie Cramer Spouse Health Care Agen t (per Health Care Power of Front Loader Residential Driver document) [email or web address] Bela Sibling First Alternate Health Care Agent (per Health Care Power of Front Loader Residential Driver document) [email or web address] Care Teams Dredge Or Barge Shore Hand Relationship Specialty Start Date End Date Sergio Barriga MD [address] [place] [address] PCP - General Family Medicine 08/07/19 documented as of this encounter
--- OUTSIDE RECORDS SUMMARY | 2024-04-18 23:51 | External Medical Summary | Summary of Care ---
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) Procedures DE PACLITAXEL PROTEIN BOUND DE IN GEMCITABINE HCL NOS 200MG Dakota Armando MD [address] [facility] [place] [address] Anc Hem/Onc [address] [address] Referral ID Status Reason Start Date Expiration Date V isits Requested Visits Authorized [id number] Authorized 02/14/2024 11/24/2099 999 999 Encounter Details Date Type Department Care Team (Latest Contact Info) Description 03/10/2024 10:30 AM EDT Hem/Onc Treatment Hematology/Oncolog y Treatment, [address] [address] Rehana Chair 4 Hem Onc [address] [place] [address] Encounter for antineoplastic chemotherapy*; Malignant neoplasm of [...] mouth in the morning. 0 Active Pancrelipase (Lew-Qujv-Ucsa) 00215-02301 UNIT Oral Capsule Delayed Release Particles (Creon 88507) 2 cap with meals, 1 with larger [...] -19) 10/16/2022 Coronary artery disease invo lving [place] coronary artery of [place] heart without angina pectoris 08/20/2022 Overview: Severe [...] lipids WNL Factor V+heteroqygous. 04/10 colon-Dr Case [facility] 2 polyps 1 tubular adenoma. Kevin 6y 2013 sleep study [facility] WNL [address] Elena [facility] Essential hypertension with goal blood pressure less [...] WNL, antiphos lipids WNL Factor V+heteroqygous. FM [id number] DIS NEC documented as of this encounter (statuses as of 04/03/2024) Immunizations Name Administration Dates Next Due COVID-19 mRNA, LNP-s, No Pre serve, 2-Dose Series ([employer]) 01/13/2022,07/21/2021,02/01/2021,01/04 COVID-19, MRNA-LNP, 23-24, P F, 30 MCG/0.3 mL, 12 YRS AND ABOVE, IM ([facility]) 09/12/2023 Covid-19, Mrna, Lnp-s, Pf, B ivalent, 30 Mcg, IM, 12 yrs and above ([employer]) 08/16/2022 HEP A - Hepatitis A [...] Description 04/07/2024 10:00 AM EDT Laboratory Laboratory [facility] [place] [address] [facility] [place] [phone] Rehana, Lab [address] [facility] [place] [address] 04/07/2024 11:15 AM EDT Office Visit Hematology/Oncology [facility] [place] [address] [facility] [place] [phone] Dakota Armando MD [address] [facility] [place] [address] 04/07/2024 11:45 AM EDT Hem/Onc Treatment Hematology/Oncology Treatment, [place] [address] [place] [phone] Rehana, Chair 11 Hem Onc [address] [place] [address] 04/21/2024 9:30 AM EDT Pharmacy Pharmacy Hematology Oncology [facility] [address] [place] [address] [facility] Hem/Onc [address] [place] [address] 07/21/2024 1:45 PM EDT Office Visit Hematology/Oncology [facility] [address] [facility] [place], [place] [address] Dakota Armando MD [address] [facility] [place] [address] 07/24/2024 11:40 AM EDT Office Visit Family [facility] [address] [place] [address] Sergio Barriga MD [address] [place] [address] Scheduled Procedures Name Priority Associated Diagnoses Date/Ti [...] this encounter Medical Devices Implanted Type Area Lumber Puller Device Identifier Shelf Expiration Date Model / Serial / Lot Duraclip 16mm Xlg Repostn - [id number] Implanted:Qty : 1 on 07/17/2021 by Guillermo Jones DO [place] [facility] [place] [employer] [id number] 01/10/2024 [id number] / / [id number] Stent Viabil Biliary [id number] - [id number] Implanted:Qty : 1 on 07/17/2021 by Guillermo Jones DO [place] [facility] [place] [employer] REYNALDO [id number] 03/04/2024 [id number] / [id number] / [id number] Port Implant W/8f Poly Cath - [id number] Implanted:Qty : 1 on 09/13/2023 by Gary Rodriguez DO at OR [facility] Right: Chest CR BARD : PERIPHERAL VASCULAR [id number] 04/24/2025 [id number] / / [id number] documented as of this encounter Visit Diagnoses [...] Documents on File Type Date Recorded Patient Patent Paralegal Expl anation Advance Directives and Living Will [...] Agen t (per Health Care Power of Quill Fixer document) [email or web address] First Alternate Health Care Agent (per Health Care Power of Quill Fixer document) [email or web address] Care Teams Educational Administration Teacher Relationship Specialty Start Date End Date Sergio Barirga MD [address] [place] [address] PCP - General Family Medicine 08/07/19 documented as of this encounter
--- OUTSIDE RECORDS SUMMARY | 2024-04-18 23:51 | External Medical Summary | Summary of Care ---
Author Name Unknown Organization [facility] Address [address] [place] [address] Phone [phone] Care Team Providers Care Medical Photographer Name Role Phone Sergio Walter MD Primary Care Provider + Reason for Visit * Reason Comments eRx-Medication Refill Encounter Details Date Type Department Care Team (Late st Contact Info) Description 03/26/2024 Refill Family Practice [facility] [address] [place] [address] Sergio Walter MD [address] [facility] [place] [address] Chronic insomnia Allergies Active Allergy Reactions Criticality Noted Date Comments Lisinopril Cough Low 08/07/2019 documented as of this encounter (statuses as of 03/28/2024) Medications Medication Sig Dispensed Refills Start Date End Date Status Boost 100 Calorie Smart Oral Liquid Take by mouth. 0 Active Multi Vitamin Daily Oral Tablet Take by mouth. 0 Active Aspirin 81 MG Oral Tablet Delayed Release Take 1 Tablet by mouth in the morning. 0 Active Pancrelipase (Ivp-Jahl-Tkfy) 19283-83966 UNIT Oral Capsule Delayed Release Particles (Creon 95329) 2 cap with meals, 1 with larger [...] ons:Chronic insomnia TAKE ONE TABLET BY MOUTH NIGHTLY AT BEDTIME NEEDED FOR SLEEP 30 Tablet 2 03/28/2024 Active ALPRAZolam 1 MG Oral Tablet (xaNAX)Indicati ons:Chronic insomnia TAKE ONE TABLET BY MOUTH AT BEDTIME NEEDED FOR SLEEP 30 Tablet 2 12/27/2023 4 Discontinued documented as of this encounter (statuses as of 03/28/2024) Active Problems Problem Noted Date Diagnosed Date Malignant neoplasm of body of pancreas 3 Metastasis to liver 08/30/2023 Encounter for antineoplastic chemotherapy 2022 History of carcinoma of pancreas 07/18/2023 Post-viral cough syndrome 07/09/2023 Upper airway cough syndrome 07/09/2023 History of 2019 novel coronavirus disease (COVID -19) 10/16/2022 Coronary artery disease invo lving [place] coronary artery of [place] heart without angina pectoris 08/20/2022 Overview: Severe [...] lipids WNL Factor V+heteroqygous. 04/10 colon-Dr Eller [facility] 2 polyps 1 tubular adenoma. Kevin 6y 2013 sleep study [facility] WNL [address] Elena [facility] Essential hypertension with goal blood [...] as of this encounter (statuses as of 03/28/2024) Resolved Problems Problem Noted Date Diagnosed Date [...] WNL, antiphos lipids WNL Factor V+heteroqygous. FM HG-QHJD-YKAKQ DIS NEC documented as of this encounter (statuses as of 03/28/2024) Immunizations Name Administration Dates Next Due COVID-19 mRNA, LNP-s, No Pre serve, 2-Dose Series ([employer]) 01/13/2022,07/21/2021,02/01/2021,01/04 COVID-19, MRNA-LNP, 23-24, P F, 30 MCG/0.3 mL, 12 YRS AND ABOVE, IM ([employer]) 09/12/2023 Covid-19, Mrna, Lnp-s, Pf, B ivalent, [...] encounter Miscellaneous Notes * Telephone Encounter - Sergio Walter MD - 03/28/2024 11:07 AM EDT Signed Prescriptions: Disp Refills ALPRAZolam 1 MG Oral Tablet (xaNAX) 30 Tab*2 Sig: TAKE ONE TABLET BY MOUTH NIGHTLY AT BEDTIME NEEDED FOR SLEEP Authorizing Provider: SERGIO WALTER * Telephone Encounter - Josefa, E-Rx Ss Inbound - 03/28/2024 8:23 AM EDT Pending Prescriptions: Disp Refills ALPRAZolam 1 MG Oral Tablet (xaNAX) 30 Tab*2 Sig: TAKE ONE TABLET BY MOUTH NIGHTLY AT BEDTIME NEEDED FOR SLEEP * Telephone Encounter - Gladys Stauffer [facility] ED - 03/27/2024 9:13 AM EDTPending Prescriptions: Disp Refills ALPRAZolam 1 MG Oral Tablet (xaNAX) 30 Tab*2 Sig: TAKE ONE TABLET BY MOUTH NIGHTLY AT BEDTIME NEEDED FOR SLEEP * Telephone Encounter - Gladys Stauffer [facility] ED - 03/27/2024 9:12 AM EDT I have reviewed the patients controlled substance dispensing history in the Prescription Drug Monitoring Program in compliance with the [facility] regulations before prescribing a controlled substance. PDMP checked on 03/27/2024. Pending Prescriptions: Disp Refills ALPRAZolam 1 MG Oral Tablet (xaNAX) [Phar*30 Tab*2 Sig: TAKE ONE TABLET BY MOUTH NIGHTLY AT BEDTIME NEEDED FOR SLEEP Last Visit: 07/18/2023 (in office), 07/18/2022 (telemedicine) Next Visit: 07/24/2024 Date medication was last filled: 02/25/24 Date medication is due for refill: 03/25/24 Pharmacy: [id number] Is this request for a controlled substance? Yes and Urine Drug Screen Not completed Toxicology results: No results found for this or any previous visit. Please approve if appropriate. Thanks, Gladys Stauffer Clinical Pharmacist [facility] ([facility]) (Formerly Telepharmacy) [phone] 03/27/2024, 9:13 AM documented in this encounter Plan of Treatment Upcoming Encounters Date Type Department Care Team (Late st Contact Info) Description 03/31/2024 9:45 AM EDT Pharmacy Pharmacy Hematology Oncology [facility] [address] [place] [address] [facility] Hem/Onc [facility] [place] [address] 04/07/2024 10:00 AM EDT Laboratory Laboratory [facility] Rehana [place] [address] [place] [phone] Rehana, Lab [facility] [address] [place] [address] [address] 04/07/2024 11:15 AM EDT Office Visit [facility] [place] [address] [place] [phone] Dakota Armando MD [address] [place] [address] 04/07/2024 11:45 AM EDT Hem/Onc Treatment Hematology/Oncology Treatment, [place] [address] [place], [place] [phone] Rehana, Chair 9 Hem Onc [facility] 200 [facility] [place] [address] 07/20/2024 10:15 AM EDT Office Visit Dermatology [facility] Rehana [place] [address] [place] [address] Cal Jernigan MD [address] [place] [address] [address] 07/21/2024 1:45 PM EDT Office Visit Hematology/Oncology [facility] Rehana [place] [address] [place] [phone] Dakota Armando MD [address] [place] [address] 07/24/2024 11:40 AM EDT Office Visit Family Practice [facility] [address] [place] [address] Sergio Walter MD [address] [place] [address] Scheduled Procedures Name Priority Associated Diagnoses Date/Ti [...] this encounter Medical Devices Implanted Type Area Audiology Technician Device Identifier Shelf Expiration Date Model / Serial / Lot Duraclip 16mm Xlg Repostn - [id number] Implanted:Qty : 1 on 07/17/2021 [place]illermo [place] [facility] [place] [employer] [id number] 01/10/2024 [id number] / / [id number] Stent Viabil Biliary [id number] - [id number] Implanted:Qty : 1 on 07/17/2021 by Guillermo Jones DO [place] [facility] [employer] [id number] 03/04/2024 [id number] / [id number] / [id number] Port Implant W/8f Poly Cath - [id number] Implanted:Qty : 1 on 09/13/2023 by Gary Rodriguez DO at OR [facility] Right: Chest CR BARD : PERIPHERAL VASCULAR [id number] 04/24/2025 [id number] / / [id number] documented as of this encounter Visit Diagnoses Diagnosis Chronic insomnia Insomnia, unspecified documented in this encounter Advance Directives Documents on File Type Date Recorded Patient Ict Support Technicians Expl anation Advance Directives and Living Will [...] Agen t (per Health Care Power of Paving Crew Foreman document) .[employer] Temo Bela Sibling First Alternate Health Care Agent (per Health Care Power of Paving Crew Foreman document) Care Teams Medical Photographer Relationship Specialty Start Date End Date Sergio Walter MD [address] [place] [address] PCP - General Family Medicine 08/07/19 documented as of this encounter
--- OUTSIDE RECORDS SUMMARY | 2024-04-18 23:51 | External Medical Summary ---
Author Name Unknown Address Unknown Organization K09:[facility] [address] [place] [address] Laboratory Report Ordering Provider Test Date Status JOSE ROY 04/07/2024 10:02:17 Final Observation Date Value Abnormality Reference (Units ) Status BUN 04/07/2024 10:02:17 13 6-20 (mg/dL) Final Creatinine 04/07/2024 10:02:17 1.0 0.6-1.2 (mg/dL) Final Glomerular filtration rate/1.73 sq M.predicted [Volume Rate/Area] in Serum, Plasma or Blood by Creatinine-based formula (CKD-EPI) 04/07/2024 10:02:17 79 >=60 (mL/min) Final eGFR is calculated based on the CKD-EPI 2020 equation Sodium 04/07/2024 10:02:17 137 135-146 (m mol/L) Final Potassium 04/07/2024 10:02:17 4.3 3.5-5.1 (m mol/L) Final Cl 04/07/2024 10:02:17 99 98-107 (mm ol/L) Final CO2 04/07/2024 10:02:17 29 22-32 (mmo l/L) Final Anion gap 04/07/2024 10:02:17 9 7-15 (mmol /L) Final Glucose 04/07/2024 10:02:17 104 70-120 (mg /dL) Final Albumin 04/07/2024 10:02:17 4.1 3.8-5.0 (g /dL) Final AST (Aspartate aminotransferase) 04/07/2024 10:02:17 42 10-50 (U/L) Fin al Alk Phos 04/07/2024 10:02:17 147 Above high normal 35 -130 (U/L) Final Bilirubin, Total 04/07/2024 10:02:17 0.4 <=1 .2 (mg/dL) Final Calcium 04/07/2024 10:02:17 9.5 8.4-10.2 ( mg/dL) Final Protein 04/07/2024 10:02:17 7.3 6.0-8.3 (g /dL) Final ALT (Alanine aminotransferase) 04/07/2024 10:02:17 35 10-50 (U/L) Silverio baker Performing Location [facility] [address] [place] [address]
--- OUTSIDE RECORDS SUMMARY | 2024-04-18 23:51 | External Medical Summary ---
Author Name Unknown Address Unknown Organization K09:[facility] [place] [address] Laboratory Report Ordering Provider Test Date Status JOSE ROY 04/07/2024 10:02:17 Final Observation Date Value Abnormality Reference (Units ) Status WBC, Total 04/07/2024 10:02:17 3.33 Below low normal 4. 00-10.80 (K/uL) Final RBC 04/07/2024 10:02:17 3.78 4.50-5.25 (M/uL) Final Hemoglobin 04/07/2024 10:02:17 11.0 Below low normal 14 .0-16.8 (g/dL) Final HCT 04/07/2024 10:02:17 35.9 Below low normal 40. 0-48.4 (%) Final MCV 04/07/2024 10:02:17 95.0 82.0-99.5 (fL) Final MCH 04/07/2024 10:02:17 29.1 27.0-34.0 (pg) Final MCHC 04/07/2024 10:02:17 30.6 32.0-36.0 (g/dL) Final RDW 04/07/2024 10:02:17 17.2 11.5-15.5 (%) Final Platelets 04/07/2024 10:02:17 309 140-400 (K /uL) Final MPV 04/07/2024 10:02:17 8.5 6.6-11.1 ( fL) Final Performing Location [facility] [place] [address]
--- OUTSIDE RECORDS SUMMARY | 2024-04-18 23:51 | External Medical Summary | Summary of Care ---
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) Procedures PA PACLITAXEL PROTEIN BOUND PA IN GEMCITABINE HCL NOS 200MG Dakota Armando MD [address] [facility] [place] [address] Anc Hem/Onc [address] [address] Referral ID Status Reason Start Date Expiration Date V isits Requested Visits Authorized [id number] Authorized 02/14/2024 11/24/2099 999 999 Encounter Details Date Type Department Care Team (Latest Contact Info) Description 03/24/2024 10:15 AM EDT Hem/Onc Treatment Hematology/Oncolog y Treatment, [address] [phone] Rehana, Chair 5 Hem On[address] [place] [address] Encounter for antineoplastic chemotherapy*; Malignant neoplasm of [...] mouth in the morning. 0 Active Pancrelipase (Ayw-Oiop-Qpey) 499[address] UNIT Oral Capsule Delayed Release Particles (Creon 26008) 2 cap with meals, 1 with larger [...] -19) 10/16/2022 Coronary artery disease invo lving [place] coronary artery of [place] heart without angina pectoris 08/20/2022 Overview: Severe [...] lipids WNL Factor V+heteroqygous. 04/10 colon-Dr Rafita [facility] 2 polyps 1 tubular adenoma. Kevin 6y 2013 sleep study [facility] WNL [address] Elena [facility] Essential hypertension with goal blood [...] WNL, antiphos lipids WNL Factor V+heteroqygous. FM EL-GRPK-[id number] DIS NEC documented as of this encounter (statuses as of 04/03/2024) Immunizations Name Administration Dates Next Due COVID-19 mRNA, LNP-s, No Pre serve, 2-Dose Series ([employer]) 01/13/2022,07/21/2021,02/01/2021,01/04 COVID-19, MRNA-LNP, 23-24, P F, 30 MCG/0.3 mL, 12 YRS AND ABOVE, IM (Transfer [facility] [employer]) 09/12/2023 Covid-19, Mrna, Lnp-s, Pf, B ivalent, 30 Mcg, IM, 12 yrs and above ([employer]) 08/16/2022 HEP A - Hepatitis A (Adult [...] EDT Laboratory Laboratory [facility] [place] [address] [facility] [place] [phone] [place] [address] 04/07/2024 11:15 AM EDT Office Visit Hematology/Oncology [facility] [place] [address] [facility] [place] [phone] Dakota Armando MD [address] [place] [address] [place] [address] 04/07/2024 11:45 AM EDT Hem/Onc Treatment Hematology/Oncology Treatment, [place] 200 [facility], [place] [phone] Rehana, Chair 11 Hem On[address] [place], [place] [address] 04/21/2024 9:30 AM EDT Pharmacy Pharmacy Hematology Oncology [address] [address] [facility] Hem/Onc [facility] [place] [address] 07/21/2024 1:45 PM EDT Office Visit Hematology/Oncology [facility] [address] [place] [phone] Dakota Armando MD [address] [facility] [place] [address] 07/24/2024 11:40 AM EDT Office Visit Family Practice [facility] [address] [place] [address] Sergio Barriga MD [address] [place] [address] Scheduled Procedures Name Priority Associated Diagnoses Date/Ti [...] this encounter Medical Devices Implanted Type Area Extrusion Manager Device Identifier Shelf Expiration Date Model / Serial / Lot Duraclip 16mm Xlg [facility] - [id number] Implanted:Qty : 1 on 07/17/2021 by Guillermo Jones DO [place] [facility] [place] [employer] [id number] 01/10/2024 [id number] / / [id number] Stent Viabil Biliary [id number] - [id number] Implanted:Qty : 1 on 07/17/2021 by Guillermo Jones DO [place] [facility] [place] [employer] [id number] 03/04/2024 [id number] / [id number] / [id number] Port Implant W/8f Poly Cath - [id number] Implanted:Qty : 1 on 09/13/2023 by Gary Rodriguez DO at OR [facility] Right: Chest CR BARD : PERIPHERAL VASCULAR [id number] 04/24/2025 [id number] / / [id number] documented as of this encounter Visit Diagnoses [...] Documents on File Type Date Recorded Patient Track Watchman Expl anation Advance Directives and Living Will [...] Agen t (per Health Care Power of District Court Administrator document) [email or web address] Temo Cramer Sibling First Alternate Health Care Agent (per Health Care Power of District Court Administrator document) Care Teams Curb Worker Relationship Specialty Start Date End Date Sergio Barriga MD [address] [place] [address] PCP - General Family Medicine 08/07/19 documented as of this encounter
--- OUTSIDE RECORDS SUMMARY | 2024-04-18 23:51 | External Medical Summary | Summary of Care ---
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 0 Active Pancrelipase (Gva-Zfzh-Lpld) 02680-235[address] UNIT Oral Capsule Delayed Release Particles (Creon 30916) 2 cap with meals, 1 with larger [...] -19) 10/16/2022 Coronary artery disease invo lving [place] coronary artery of [place] heart without angina pectoris 08/20/2022 Overview: Severe [...] lipids WNL Factor V+heteroqygous. 04/10 colon-Dr Case [facility] 2 polyps 1 tubular adenoma. Keivn 5y 2013 sleep study [facility] WNL [address] Elena [facility] Essential hypertension with goal blood pressure [...] WNL, antiphos lipids WNL Factor V+heteroqygous. FM LN-UGIU-VXKOW DIS NEC documented as of this encounter (statuses as of 04/07/2024) Immunizations Name Administration Dates Next Due COVID-19 mRNA, LNP-s, No Pre serve, 2-Dose Series ([employer]) 01/13/2022,07/21/2021,02/01/2021,01/04 COVID-19, MRNA-LNP, 23-24, P F, 30 MCG/0.3 mL, 12 YRS AND ABOVE, IM [facility] 09/12/2023 Covid-19, Mrna, Lnp-s, Pf, B [...] No 07/16/2021 documented as of this encounter Plan of Treatment Upcoming Encounters Date Type Department Care Team (Late st Contact Info) Description 04/07/2024 11:15 AM EDT Office Visit Hematology/Oncology Sharif Kimball [place] [address] [phone] Dakota Armando MD [address] [place] [address] [address] 04/07/2024 11:15 AM EDT Hem/Onc Treatment Hematology/Oncology Treatment, [place] [address] [facility] [address] [place] [address] Rehana, Chair 1 Hem Onc [place] [address] [place] [address] [address] Arrived 04/21/2024 9:30 AM EDT Pharmacy Pharmacy Hematology Oncology [place] [address] [place] [address] [facility], [facility] Hem/Onc Formerly [facility] [place] [address] 07/21/2024 1:45 PM EDT Office Visit Hematology/Oncology Sharif Kimball [place] [address] [phone] Dakota Armando MD [address] [place] [address] 07/24/2024 11:40 AM EDT Office Visit Family Practice [facility] [address] [place] [address] Sergio Barriga MD [address] [place] [address] Pending Results Name Type Priority Associated Diagnoses Date /Time COMPREHENSIVE METABOLIC PANEL Lab STAT 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) 04/07/2024 10:02 AM EDT Scheduled Procedures Name Priority Associated Diagnoses Date/Ti [...] this encounter Medical Devices Implanted Type Area Belt Measurer Device Identifier Shelf Expiration Date Model / Serial / Lot Duraclip 16mm Xlg Repostn - [id number] Implanted:Qty : 1 on 07/17/2021 by Guillermo Jones DO at ENDOSCOPY [facility] [place] [employer] [id number] 01/10/2024 [id number] / / [id number] Stent Viabil Biliary [id number] - [id number] Implanted:Qty : 1 on 07/17/2021 by Guillermo Jones DO at ENDOSCOPY [facility] [employer] [id number] 03/04/2024 [id number] / [id number] / [id number] Port Implant W/8f Poly Cath - [id number] Implanted:Qty : 1 on 09/13/2023 by Gary Rodriguez DO at OR [facility] Right: Chest CR BARD : PERIPHERAL VASCULAR [id number] 04/24/2025 [id number] / / [id number] documented as of this encounter Procedures Procedure Name Priority Date/Time Associated Diagnosis Comments DIFFERENTIAL, AUTOMATED STAT 04/07/2024 10:02 AM EDT 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) CBC STAT 04/07/2024 10:02 AM EDT 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) CBC STAT 04/07/2024 10:02 AM EDT 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) documented in this encounter Results * (ABNORMAL) DIFFERENTIAL, AUTOMATED (04/07/2024 10:02 AM EDT) WBC 3.33(L) 4.00 - 10.80 K/uL 04/07/2024 10:08 AM EDT [facility] [place]-02 Neutrophils % 39.1(L) 40.0 - 75.0 % 04/07/2024 10:08 AM EDT [facility] 56- Lymphocytes % 30.3 18.0 - 42.0 % 04/07/2024 10:08 AM EDT [facility] 56-02 Monocytes % 19.8(H) 1.0 - 11.0 % 04/07/2024 10:08 AM EDT [facility] 56- Eosinophils % 9.9(H) 0.0 - 6.0 % 04/07/2024 10:08 AM EDT [facility] 56- Basophils % 0.9 0.0 - 2.0 % 04/07/2024 10:08 AM EDT [facility] 56- Absolute Neutrophils 1.30(L) 1.80 - 7.70 K/uL 04/07/2024 10:08 AM EDT [facility] 56- Absolute Lymphocytes 1.01 1.00 - 4.80 K/ul 04/07/2024 10:08 AM EDT [facility] 56- Absolute Monocytes 0.66 0.00 - 1.10 K/uL 04/07/2024 10:08 AM EDT [facility] 56- Absolute Eosinophils 0.33 0.00 - 0.70 K/uL 04/07/2024 10:08 AM EDT [facility] 56-02 Absolute Basophils 0.03 0.00 - 0.20 K/uL 04/07/2024 10:08 AM EDT [facility] 56-02 Blood Venous blood specimen / Unknown Venipuncture / Unknown 04/07/2024 10:02 AM EDT 04/07/2024 10:02 AM EDT Dakota Armando MD LAB BLOOD ORDERABLES [facility] [address] [place] [address] * (ABNORMAL) CBC (04/07/2024 10:02 AM EDT) WBC 3.33(L) 4.00 - 10.80 K/uL 04/07/2024 10:08 AM EDT [facility] 56-02 RBC 3.78 4.50 - 5.25 M/uL 04/07/2024 10:08 AM EDT [facility] 56 HGB 11.0(L) 14.0 - 16.8 g/dL 04/07/2024 10:08 AM EDT [facility] 56 HCT 35.9(L) 40.0 - 48.4 % 04/07/2024 10:08 AM EDT [facility] 56 MCV 95.0 82.0 - 99.5 fL 04/07/2024 10:08 AM EDT [facility] 56 MCH 29.1 27.0 - 34.0 pg 04/07/2024 10:08 AM EDT [facility] 56 MCHC 30.6 32.0 - 36.0 g/dL 04/07/2024 10:08 AM EDT [facility] 56 RDW 17.2 11.5 - 15.5 % 04/07/2024 10:08 AM EDT [facility] 56 PLT 309 140 - 400 K/uL 04/07/2024 10:08 AM EDT [facility] 56 MPV 8.5 6.6 - 11.1 fL 04/07/2024 10:08 AM EDT [facility] 56 Blood Venous blood specimen / Unknown Venipuncture / Unknown 04/07/2024 10:02 AM EDT 04/07/2024 10:02 AM EDT Dakota Armando MD LAB BLOOD ORDERABLES Performing Organization Address City/State/[facility] Co de Phone Number [facility] [address] [place] [address] documented in this encounter Visit Diagnoses Diagnosis 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 Healthcare Agents on File Name Relationship Healthcare Agent Relationship Communication Virginieotto Cramer Spouse Health Care Agen t (per Health Care Power of Lining Repairer document) [email or web address] Temo Cramer Sibling First Alternate Health Care Agent (per Health Care Power of Lining Repairer document) [email or web address] Care Teams Geoduck Diver Relationship Specialty Start Date End Date Sergio Barriga MD [address] [place] [address] PCP - General Family Medicine 08/07/19 documented as of this encounter
--- OUTSIDE RECORDS SUMMARY | 2024-04-18 23:51 | External Medical Summary ---
Author Name Unknown Address Unknown Organization K09:[facility] [address] [place] [address] Laboratory Report Ordering Provider Test Date Status JOSE ROY 04/07/2024 10:02:17 Final Observation Date Value Abnormality Reference (Units ) Status SYNC LEUKOCYTES IN BLOOD BY AUTOMATED COUNT 04/07/2024 10:02:17 3.33 Below low normal 4.00-10.80 (K/uL) Final Segs 04/07/2024 10:02:17 39.1 Below low normal 40.0-75.0 (%) Final Lymphs % 04/07/2024 10:02:17 30.3 18.0-42.0 (%) Final Monos 04/07/2024 10:02:17 19.8 Above high normal 1.0-11.0 (%) Final Eosinophils 04/07/2024 10:02:17 9.9 Above high normal 0.0-6.0 (%) Final Basos 04/07/2024 10:02:17 0.9 0.0-2.0 (%) Final Absolute Segs 04/07/2024 10:02:17 1.30 Below low normal 1.80-7.70 (K/uL) Final Lymphs, absolute 04/07/2024 10:02:17 1.01 1.00-4.80 (K/ul) Final Monos, Abs 04/07/2024 10:02:17 0.66 0.00-1.10 (K/uL) Final Eos, Abs 04/07/2024 10:02:17 0.33 0.00-0.70 (K/uL) Final Basos, Abs 04/07/2024 10:02:17 0.03 0.00-0.20 (K/uL) Final Performing Location [facility] [address] [address]
--- OUTSIDE RECORDS SUMMARY | 2024-04-18 23:51 | External Medical Summary | Summary of Care ---
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) Procedures PA LEUCOVORIN CALCIUM INJECTION PA FLUOROURACIL INJECTION PA IRINOTECAN INJECTION PA OXALIPLATIN PA FOSAPREPITANT INJECTION BEVACIZUMAB-BVZR, BIOSIMILAR, 10 MG (ZIRABEV), IV PA INJECTION, UDENYCA 0.5 MG Dakota Armando MD [address], [place] [address] Anc Hem/Onc Sharif Kimball DEPT CLOSED - 10/08/[address] [place] [phone] Referral ID Status Reason Start Date Expiration Date Visits Re quested Visits Authorized [id number] Closed 08/30/2023 11/24/2099 999 [id number] Encounter Details Date Type Department Care Team (Latest Contact Info) Description 01/24/2024 12:15 PM EST Immunization/ Injection Hematology/Oncology Treatment, [place] [address] [place] [address] Nurse, Med 4 [address] [place] [address] Encounter for antineoplastic chemotherapy*; Metastasis to liver [...] mouth in the morning. 0 Active Pancrelipase (Xrs-Cyir-Xhga) [address] UNIT Oral Capsule Delayed Release Particles (Creon 64058) 2 cap with meals, 1 with larger snack. (up to 8/day) 240 Capsule 11 2 Active Continuation of patient use of medical marijuana is approved Inhale 1 Capsule by mouth as needed. 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 Do all this for 7 days. 14 Tablet 0 3 02/14/20 24 Discontinued(Med ication List Clean Up) ALPRAZolam 1 MG Oral Tablet (xaNAX)Indicatio ns:Chronic insomnia TAKE ONE TABLET BY MOUTH AT BEDTIME NEEDED FOR SLEEP 30 Tablet 2 4 03/28/20 24 Discontinued documented as of this encounter (statuses as of 03/28/2024) Active Problems Problem Noted Date Diagnosed Date Malignant neoplasm of body of pancreas 3 Metastasis to liver 08/30/2023 Encounter for antineoplastic chemotherapy 2022 History of carcinoma of pancreas 07/18/2023 Post-viral cough syndrome 07/09/2023 Upper airway cough syndrome 07/09/2023 History of 2019 novel coronavirus disease (COVID -19) 10/16/2022 Coronary artery disease invo lving [place] coronary artery of [place] heart without angina pectoris 08/20/2022 Overview: Severe noted on 08/16 CT chest. Degenerative arthritis of thumb, right 2 Localized edema 07/18/2022 Alcohol dependence in remission 01/12/2022 Malignant neoplasm of pancreas 07/21/2021 Obstructive jaundice 07/16/2021 History of DVT (deep vein thrombosis) 07/30/2019 Well adult exam 05/18/2019 Overview: 08/17 recurrent CA 3/23 PFT WNl 08/2022 colon--suboptimal prep --Repeat exam [...] lipids WNL Factor V+heteroqygous. 04/10 colon-Dr Eller [facility] 2 polyps 1 tubular adenoma. Kevin 5y 2013 sleep study [facility] WNL [address] Elena [facility] Essential hypertension with goal blood pressure [...] WNL, antiphos lipids WNL Factor V+heteroqygous. FM [id number] DIS NEC documented as of this encounter (statuses as of 03/28/2024) Immunizations Name Administration Dates Next Due COVID-19 mRNA, LNP-s, No Pre serve, 2-Dose Series ([employer]) 01/13/2022,07/21/2021,02/01/2021,01/04 COVID-19, MRNA-LNP, 23-24, P F, 30 MCG/0.3 mL, 12 YRS AND ABOVE, IM ([employer]) 09/12/2023 Covid-19, Mrna, Lnp-s, Pf, B ivalent, 30 Mcg, IM, 12 yrs and above ([employer]) 08/16/2022 HEP A - Hepatitis A (Adult [...] as of this encounter Progress Notes * Valentina Ballard LPN - 01/24/2024 12:27 PM EST Patient arrived for the Udenyca injection. Patient tolerated infection well, denies any complaints or needs. Patient stable upon discharge. documented in this encounter Plan of Treatment Upcoming Encounters Date Type Department Care Team (Late st Contact Info) Description 03/31/2024 9:45 AM EDT Pharmacy Pharmacy Hematology Oncology [facility] [address] [place] [address] [facility] Hem/Onc [address] [place] [address] 04/07/2024 10:00 AM EDT Laboratory Laboratory [facility] [place] [address] [place] [phone] Rehana, Lab [facility] [address] [facility] [place] [address] 04/07/2024 11:15 AM EDT Office Visit Hematology/Oncology [facility] [place] [address] [place] [phone] Dakota Armando MD [address] [place] [address] 04/07/2024 11:45 AM EDT Hem/Onc Treatment Hematology/Oncology Treatment, [place] [address] [place], [place] [phone] Rehana, Chair 9 Hem Onc [facility] [address] [facility] [place], [place] [address] 07/20/2024 10:15 AM EDT Office Visit Dermatology [facility] Rehana [place] [address] [place] [address] Cal Jernigan MD [address] [place] [address] 07/21/2024 1:45 PM EDT Office Visit Hematology/Oncology [facility] [place] [address] [place] [phone] Dakota Armando MD [address] [place] [address] 07/24/2024 11:40 AM EDT Office Visit Family Practice [facility] [address] [place] [address] Sergio Barriga MD [address] [place] [address] Scheduled Procedures Name Priority Associated Diagnoses Date/Ti [...] this encounter Medical Devices Implanted Type Area Lead Mobile Developer Device Identifier Shelf Expiration Date Model / Serial / Lot Duraclip 16mm Xlg Repostn - [id number] Implanted:Qty : 1 on 07/17/2021 by Guillermo Jones DO at ENDOSCOPY [facility] [place] [employer] [id number] 01/10/2024 [id number] / / [id number] Stent Viabil Biliary [id number] - [id number] Implanted:Qty : 1 on 07/17/2021 by Guillermo Jones DO at ENDOSCOPY [facility] [place] [employer] [id number] 03/04/2024 [id number] / [id number] / [id number] Port Implant W/8f Poly Cath - [id number] Implanted:Qty : 1 on 09/13/2023 by Gary Rodriguez DO at OR [facility] Right: Chest CR BARD : PERIPHERAL VASCULAR [id number] 04/24/2025 [id number] / / [id number] documented as of this encounter Visit Diagnoses Diagnosis Encounter for antineoplastic chemotherapy- Primary 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) Malignant neoplasm of body of pancreas documented in this encounter Administered Medications Inactive Administered Medications - up to 3 most recent administrations Medication Order MAR Action Action Date Dose Rate Site Pegfilgrastim-cbqv (Udenyca) inj 6 mg 6 mg, Subcutaneous, ONCE, On Sat01/24/24 at 1300, For 1 dose Given 01/24/2024 12:23 PM EST 6 mg Arm Right Upper documented in this encounter Advance Directives Documents on File Type Date Recorded Patient Carbon Cleaner Expl anation Advance Directives and Living Will [...] Agen t (per Health Care Power of Solid State Tester document) [email or web address] [email or web address] Cramer Sibling First Alternate Health Care Agent (per Health Care Power of Solid State Tester document) Care Teams Hospitality Manager Relationship Specialty Start Date End Date Sergio Barriga MD [address] [place] [address] [address] PCP - General Family Medicine 08/07/19 documented as of this encounter
--- OUTSIDE RECORDS SUMMARY | 2024-04-18 23:51 | External Medical Summary | Summary of Care ---
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) Procedures [place] PACLITAXEL PROTEIN BOUND [place] IN GEMCITABINE HCL NOS 200MG Dakota Armando MD [address] [place] [address] Anc Hem/Onc [address] [address] Referral ID Status Reason Start Date Expiration Date V isits Requested Visits Authorized [id number] Authorized 02/14/2024 11/24/2099 999 999 Encounter Details Date Type Department Care Team (Latest Contact Info) Description 03/24/2024 10:15 AM EDT Hem/Onc Treatment Hematology/Oncolog y Treatment, [address] [phone] Rehana, Chair 5 Hem Onc [address] [place] [address] Encounter for antineoplastic chemotherapy*; Malignant neoplasm of [...] mouth in the morning. 0 Active Pancrelipase (Poc-Hhse-Vfxn) [address] UNIT Oral Capsule Delayed Release Particles (Creon 48105) 2 cap with meals, 1 with larger [...] -19) 10/16/2022 Coronary artery disease invo lving [place] coronary artery of [place] heart without angina pectoris 08/20/2022 Overview: Severe [...] lipids WNL Factor V+heteroqygous. 04/10 colon-Dr Rafita [facility] 2 polyps 1 tubular adenoma. Kevin 5y 2013 sleep study [facility] WNL [address] Elena [facility] Essential hypertension with goal blood [...] WNL, antiphos lipids WNL Factor V+heteroqygous. FM EZ-TSID-RNHXG DIS NEC documented as of this encounter (statuses as of 04/03/2024) Immunizations Name Administration Dates Next Due COVID-19 mRNA, LNP-s, No Pre serve, 2-Dose Series ([employer]) 01/13/2022,07/21/2021,02/01/2021,01/04 COVID-19, MRNA-LNP, 23-24, P F, 30 MCG/0.3 mL, 12 YRS AND ABOVE, IM [facility]) 09/12/2023 Covid-19, Mrna, Lnp-s, Pf, B ivalent, 30 Mcg, IM, 12 yrs and above ([employer]) 08/16/2022 HEP A - Hepatitis A (Adult [...] Description 04/07/2024 10:00 AM EDT Laboratory Laboratory [facility] [place] [address] [place] [phone] [place] [address] 04/07/2024 11:15 AM EDT Office Visit Hematology/Oncology [facility] [place] [address] [place] [phone] Dakota Armando MD [address] [place] [address] [place] [address] 04/07/2024 11:45 AM EDT Hem/Onc Treatment Hematology/Oncology Treatment, [place] [address], [place] [phone] Rehana, Chair 11 Hem Onc [address] [place], [place] [address] 04/21/2024 9:30 AM EDT Pharmacy Pharmacy Hematology Oncology [address] [address] [facility] [place] [facility] [place] Hem/Onc [facility] [place] [address] 07/21/2024 1:45 PM EDT Office Visit Hematology/Oncology [facility] [address] [place] [phone] Dakota Armando MD [address] [place] [address] 07/24/2024 11:40 AM EDT Office Visit Family Practice [facility] [address] [place] [address] Sergio Barriga MD [address] [place] [address] Scheduled Procedures Name Priority Associated Diagnoses Date/Ti [...] this encounter Medical Devices Implanted Type Area Pressed Or Blown Glass Worker Device Identifier Shelf Expiration Date Model / Serial / Lot Duraclip 16mm Xlg [facility] [id number] Implanted:Qty : 1 on 07/17/2021 by Guillermo Jones DO at ENDOSCOPY [facility] [place] [employer] [id number] 01/10/2024 [id number] / / [id number] Stent Viabil Biliary [id number] - [id number] Implanted:Qty : 1 on 07/17/2021 by Guillermo Jones DO at ENDOSCOPY [facility] [place] [employer] [id number] 03/04/2024 [id number] / [id number] / [id number] Port Implant W/8f Poly Cath - [id number] Implanted:Qty : 1 on 09/13/2023 by Gary Rodriguez DO at OR [facility] Right: Chest CR BARD : PERIPHERAL VASCULAR [id number] 04/24/2025 [id number] / / [id number] documented as of this encounter Visit Diagnoses [...] Documents on File Type Date Recorded Patient Brand Ambassadors Promotional Sales Expl anation Advance Directives and Living Will [...] Agen t (per Health Care Power of Ict Development Manager document) [email or web address] Temo Cramer Sibling First Alternate Health Care Agent (per Health Care Power of Ict Development Manager document) [email or web address] Care Teams Security Orderly Relationship Specialty Start Date End Date Sergio Barriga MD [address] [place] [address] PCP - General Family Medicine 08/07/19 documented as of this encounter
--- OUTSIDE RECORDS SUMMARY | 2024-04-18 23:52 | External Medical Summary | Summary of Care ---
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) Procedures NC LEUCOVORIN CALCIUM INJECTION NC FLUOROURACIL INJECTION NC IRINOTECAN INJECTION NC OXALIPLATIN NC FOSAPREPITANT INJECTION BEVACIZUMAB-BVZR, BIOSIMILAR, 10 MG (ZIRABEV), IV NC INJECTION, UDENYCA 0.5 MG Dakota Armando MD [address] [employer], [place] [address] Anc Hem/Onc [facility] DEPT CLOSED - 10/08/23 [address] [place] [address] Referral ID Status Reason Start Date Expiration Date Visits Re quested Visits Authorized [id number] Closed 08/30/2023 11/24/[phone] Encounter Details Date Type Department Care Team (Latest Contact Info) Description 02/04/2024 9:15 AM EDT Hem/Onc Treatment Hematology/Oncolog y Treatment, [place] [address] [place] [address] Rehana, Chair 10 Hem Onc Scenery [address] [place] [address] Encounter for antineoplastic chemotherapy*; Metastasis to liver [...] mouth in the morning. 0 Active Pancrelipase (Fxu-Ivgp-Tieq) 65941-50183 UNIT Oral Capsule Delayed Release Particles (Creon 46110) 2 cap with meals, 1 with larger [...] -19) 10/16/2022 Coronary artery disease invo lving [place] coronary artery of [place] heart without angina pectoris 08/20/2022 Overview: Severe [...] WNL Factor V+heteroqygous. 04/10 colon-Dr Eller [facility] 2 polyps 1 tubular adenoma. Kevin 5y 2013 sleep study [facility] WNL [address] Elena [facility] Essential hypertension with goal blood pressure less [...] WNL, antiphos lipids WNL Factor V+heteroqygous. FM CP-FMQS-VBCUZ DIS NEC documented as of this encounter (statuses as of 03/27/2024) Immunizations Name Administration Dates Next Due COVID-19 mRNA, LNP-s, No Pre serve, 2-Dose Series (Rhomania) 01/13/2022,07/21/2021,02/01/2021,01/04 COVID-19, MRNA-LNP, 23-24, P F, 30 MCG/0.3 mL, 12 YRS AND ABOVE, IM [facility]) 09/12/2023 Covid-19, Mrna, Lnp-s, Pf, B ivalent, 30 Mcg, IM, 12 yrs and above (Rhomania) 08/16/2022 HEP A - Hepatitis A (Adult [...] 9:45 AM EDT Pharmacy Pharmacy Hematology Oncology [place] [address] [place] [address] [facility] [place] Hem/Onc [address] [place] [address] 04/07/2024 10:00 AM EDT Laboratory Laboratory [facility] [place] [address] [place], [place] [phone] Rehana, Lab [facility] [address] [place], [place] [address] 04/07/2024 11:15 AM EDT Office Visit Hematology/Oncology [facility] [place] [address] [place], [place] [phone] Dakota Armando MD [address] [place], [place] [address] 04/07/2024 11:45 AM EDT Hem/Onc Treatment Hematology/Oncology [facility] [address] [place], [place] [phone] Rehana, Chair [address] [place], [place] [address] 07/20/2024 10:15 AM EDT Office Visit Dermatology [facility] [place] [address] [place], [place] [address] Cal Jernigan MD 200 [facility] [place], [place] [address] 07/21/2024 1:45 PM EDT Office Visit Hematology/Oncology [facility] [place] [address] [place], [place] [phone] Dakota Armando MD [address] [place] [address] 07/24/2024 11:40 AM EDT Office Visit Family Practice [facility] [address] [place] [address] Sergio Barriga MD [address] [place] [address] Scheduled Procedures Name Priority Associated Diagnoses Date/Ti [...] this encounter Medical Devices Implanted Type Area Street Light Wirer Device Identifier Shelf Expiration Date Model / Serial / Lot Duraclip 16mm Xlg Repostn - [id number] Implanted:Qty : 1 on 07/17/2021 by Guillermo Jones DO [place] [facility] [employer] [place] [id number] 01/10/2024 [id number] / / [id number] Stent Viabil Biliary [id number] - [id number] Implanted:Qty : 1 on 07/17/2021 by Guillermo Jones DO at [place] [place] [employer] [place] [id number] 03/04/2024 [id number] / [id number] / [id number] Port Implant W/8f Poly Cath - [id number] Implanted:Qty : 1 on 09/13/2023 by Gary Rodriguez DO at OR [facility] Right: Chest CR BARD : PERIPHERAL VASCULAR [id number] 04/24/2025 [id number] / / [id number] documented as of this encounter Visit Diagnoses [...] Documents on File Type Date Recorded Patient Management Supervisor Expl anation Advance Directives and Living [...] Agen t (per Health Care Power of Cargo Service Supervisor document) [email or web address] Temo Cramer Sibling First Alternate Health Care Agent (per Health Care Power of Cargo Service Supervisor document) [email or web address] Care Teams Lock Corner Machine Operator Relationship Specialty Start Date End Date Sergio Barriga MD [address] [place] [address] PCP - General Family Medicine 08/07/19 documented as of this encounter
--- OUTSIDE RECORDS SUMMARY | 2024-04-18 23:52 | External Medical Summary | Summary of Care ---
Author Name Unknown Organization [facility] Address [address] [place] [address] Phone [phone] Care Team Providers Care Crew Leader Name Role Phone Sergio Barriga MD Primary Care Provider + Reason for Visit * Reason Onset Date Comments Patient Assistance Program 02/18/2024 Encounter Details Date Type Department Care Team (Late st Contact Info) Description 02/18/2024 Telephone Hematology/Oncology [facility] [address] [facility] [place] [phone] Dakota Armando MD [address] [facility] [place] [address] Patient Assistance Program Allergies Active Allergy Reactions Criticality Noted Date Comments Lisinopril Cough Low 08/07/2019 documented as of this encounter (statuses as of 2024) Medications Medication Sig Dispensed Refills Start Date End Date Status Boost 100 Calorie Smart Oral Liquid Take by mouth. 0 Active Multi Vitamin Daily Oral Tablet Take by mouth. 0 Active Aspirin 81 MG Oral Tablet Delayed Release Take 1 Tablet by mouth in the morning. 0 Active Pancrelipase (Uqh-Ynpl-Qwiz) 62053-14840 UNIT Oral Capsule Delayed Release Particles (Creon 73093) 2 cap with meals, 1 with larger snack. (up to 8/day) 240 Capsule 11 09/10/2022 Active Continuation of patient use of medical marijuana is approved Inhale 1 Capsule by mouth as needed. 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 With or without food. 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 With or without food. 240 Tablet 5 02/24/2024 4 Discontinue d(Transferr ed) documented as of this encounter (statuses as of 2024) Active Problems Problem Noted Date Diagnosed Date Malignant neoplasm of body of pancreas 3 Metastasis to liver 08/30/2023 Encounter for antineoplastic chemotherapy 2022 History of carcinoma of pancreas 07/18/2023 Post-viral cough syndrome 07/09/2023 Upper airway cough syndrome 07/09/2023 History of 2019 novel coronavirus disease (COVID -19) 10/16/2022 Coronary artery disease invo lving [place] coronary artery of [place] heart without angina pectoris 08/20/2022 Overview: Severe [...] WNL Factor V+heteroqygous. 04/10 colon-Dr Eller [facility] 2 polyps 1 tubular adenoma. Kevin 5y 2013 sleep study [facility] WNL [address] Elena [facility] Essential hypertension with goal blood pressure less [...] as of this encounter (statuses as of 2024) Resolved Problems Problem Noted Date Diagnosed Date [...] WNL, antiphos lipids WNL Factor V+heteroqygous. FM JS-YZAO-ZZGIJ DIS NEC documented as of this encounter (statuses as of 2024) Immunizations Name Administration Dates Next Due COVID-19 mRNA, LNP-s, No Pre serve, 2-Dose Series (Zakaz.ua) 01/13/2022,07/21/2021,02/01/2021,12/26 COVID-19, MRNA-LNP, 23-24, P F, 30 MCG/0.3 mL, 12 YRS AND ABOVE, IM (Dweho-Comirnat) 09/12/2023 Covid-19, Mrna, Lnp-s, Pf, B ivalent, [...] Influenza, Quadriva lent Hd (Fluzone Hd) 09/03/2023,08/13/2022,08/30/2021 TD - Tetanus/Diptheria (ADULT) 07/21/1999 0 07/21/2009 TD, Preservative Free 07/21/1999 TDAP (age 12 [...] encounter Miscellaneous Notes * Telephone Encounter - Shilpa Pandya OSA - 2024 9:55 AM EDT Patient Assistance Name of Medication: Sotorasib 120 MG Oral Tablet Was patient spoken to: : YES Type of assistance: Manager Fine Approval dates: 03/06/2024 to 11/24/2024 Applications mailed: : YES Follow up: 10/24/2024 Thank you, Shilpa Pandya [facility]ication [facility] 2024, 9:55 AM * Telephone Encounter - Maeve Harris OSA - 03/06/2024 1:11 PM EDT Spoke with PAP today. Patient's application is still in process/being reviewed at this time. When a determination is made a fax will be sent to [facility] Hematology Oncology Oral Chemotherapy Clinic Medication Therapy Disease Management [facility] 03/06/24 1:17 PM Time Spent on Encounter: 6 - 10 minutes * Telephone Encounter - Shilpa Pandya OSA - 03/03/2024 9:51 AM EDT Patient Assistance Name of Medication: Sotorasib 120 MG Oral Tablet (Lumakras) Was patient spoken to: : YES. I spoke with ambulatory service representative at [employer] and they have received all required documents. Called Rafael and let him know same. Type of assistance: Kayentis Applications mailed: : YES Follow up: 03/05/2024 Thank you, Shilpa Pandya [facility] 03/03/2024, 9:51 AM * Telephone Encounter - Shilpa Pandya OSA - 02/28/2024 10:01 AM EDT Patient Assistance Name of Medication: Sotorasib 120 MG Oral Tablet (Lumakras) Was patient spoken to: : NO. Faxed over [employer] forms, medicare card, and approval letter for Lumakras to [employer]. Type of assistance: Manager Fine Applications mailed: : YES Follow up: 03/03/2024 Thank you, Shilpa Pandya [facility] 02/28/2024, 10:01 AM * Telephone Encounter - Maeve Harris OSA - 02/27/2024 2:43 PM EDT Called [facility] to check on patient's medication. They were not able to locate patient in their system at this time. Message sent to Alyson Pandya to check status of assistance- she is waiting on form to be sent back frompatient;s provider that she sent on Saturday. Will follow up again on Saturday03/02/24 [facility] Hematology Oncology Oral Chemotherapy Clinic Medication Therapy Disease Management [facility] 02/27/24 2:44 PM * Telephone Encounter - Jen Teixeira RPh - 02/24/2024 12:52 PM EDT Sotorasib RX sent to [employer] Time Spent on Encounter: 6 - 10 minutes Encounter Group: Oncology Encounter Interventions Item Category: Oral Chemotherapy Sotorasib Problem/Rationale: Adherence - Medication product not available Pharmacist Intervention(s): Medication prescribed Magnitude of Intervention: Modification of medication for asymtomatic patients (Level 2) * Telephone Encounter - Shilpa Pandya OSA - 02/24/2024 10:45 AM EDT Patient Assistance Name of Medication: LUMAKRAS 120 MG TABS Was patient spoken to: : YES Type of assistance: Over income for pharmacy reji. Called [employer] and had Pt screened for assistance. Applications mailed: : YES, emailed to [email or web address] Follow up: 02/26/2024 Thank you, Shilpa Pandya [facility] 02/24/2024, 10:45 AM * Telephone Encounter - Zaida Swift OSA - 02/18/2024 10:50 AM EDT [facility] Patient Assistance Request: Medication name: LUMAKRAS 120 MG TABS Insurance? medicare d Co-pay amount: [phone] Action needed: new funding inquiry Target ship date (if applicable): N/A IF HEM/ONC: Confirm this encounter is routed to [facility]: Yes All other department requests should be flagged in referral. Confirm encounter department selected is for prescribing physician: Yes If URGENT: Send TEAMS message to appropriate departmental buyer (see "Patient Assistance Guide" - ROUTING POOLS:[facility] on shared drive): [] Urgent message sent to: Thank you, [facility] Spear [facility] 02/18/2024,10:50 AM documented in this encounter Plan of Treatment Upcoming Encounters Date Type Department Care Team (Late st Contact Info) Description 03/17/2024 9:00 AM EDT Office Visit Hematology/Oncology [facility] [address] [facility] [place] [phone] Amber Huizar CRNP [address] [place] [address] [place] [address] 03/24/2024 9:20 AM EDT Laboratory Laboratory [facility] [place] [address] [facility] [place] [phone] Rehana, Lab [address] [place] [address] 03/24/2024 10:15 AM EDT Hem/Onc Treatment Hematology/[address]cology [address] [phone] Rehana, Chair [address] [place] [address] 07/20/2024 10:15 AM EDT Office Visit Dermatology [facility] [address] [place] [address] Cal Jernigan MD [address] [place] [address] [place] [address] 07/21/2024 1:45 PM EDT Office Visit Hematology/Oncology [facility] [address] [place] [phone] Dakota Armando MD [address] [facility] [place] [address] 07/24/2024 11:40 AM EDT Office Visit [facility] [address] [place] [address] Sergio Barriga MD [address] [place] [place] [address] Scheduled Procedures Name Priority Associated Diagnoses Date/Ti me COLONOSCOPY FLEXIBLE PROXIMA L DIAGNOSTIC Recall History of adenomatous polyp of colon Health Maintenance Due Date Last Done Comments Depression Screening 09/10/2023 09/10/2022 COLONOSCOPY-ANNUAL AGES 18-100 09/14/2023 09/14/2022, 09/14/2022, 04/02/2017 GFR 03/10/2025 03/10/2024, 12/2023, 02/03/2024, Additional history exists Albumin/Creatinine Ratio 10/16/2025 10/16/2022, 04/25 DTaP,Tdap,and Td Vaccines (2 - Td or Tdap) 04/11/2026 04/11/2016, 07/21/1999, 07/21/1999 Zoster Vaccines Completed 09/02/2019, 06/2019, 03/22/2011 Pneumococcal Vaccine: 65+ Years Completed 08/12/2020, 08/07/2019 COLONOSCOPY-EVERY 5 YRS AGES 18-100 Discontinued 09/14/2022, [...] this encounter Medical Devices Implanted Type Area Manager Fine Device Identifier Shelf Expiration Date Model / Serial / Lot Duraclip 16mm Xlg Rustn - [id number] Implanted:Qty : 1 on 07/17/2021 by Guillermo Jones DO [place] [facility] [place] [id number] 01/10/2024 [id number] / / [id number] Stent Viabil Biliary [id number] - [id number] Implanted:Qty : 1 on 07/17/2021 by Guillermo Jones DO [place] [facility] [place] [place] [id number] 03/04/2024 [id number] / [id number] / [id number] Port Implant W/8f Poly Cath - [id number] Implanted:Qty : 1 on 09/13/2023 by Gary Rodriguez DO at OR [facility] Right: Chest CR BARD : PERIPHERAL VASCULAR [id number] 04/24/2025 [id number] / / [id number] documented as of this encounter Visit Diagnoses Diagnosis 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 Healthcare Agents on File Name Relationship Healthcare Agent Relationship Communication Virginie Cramer Spouse Health Care Agen t (per Health Care Power of Art Framing Manager document) [email or web address] Temo Bela Sibling First Alternate Health Care Agent (per Health Care Power of Art Framing Manager document) [email or web address] Care Teams Crew Leader Relationship Specialty Start Date End Date Sergio Barriga MD [address] [place] [address] PCP - General Family Medicine 9/13/19 documented as of this encounter
--- OUTSIDE RECORDS SUMMARY | 2024-04-18 23:52 | External Medical Summary ---
Author Name Unknown Address Unknown Organization K01:LABORATORY [facility] [place] - [address] [place] [address] Laboratory Report Ordering Provider Test Date Status JOSE ROY 03/24/2024 09:22:51 Final Observation Date Value Abnormality Reference (Units ) Status Cancer Ag 19-9 03/24/2024 09:22:51 219.2 Above high norm al <35.0 (U/mL) Final Performing Location LABORATORY [facility] - [address] [place] [address]
--- OUTSIDE RECORDS SUMMARY | 2024-04-18 23:52 | External Medical Summary | Summary of Care ---
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) Procedures MT LEUCOVORIN CALCIUM INJECTION MT FLUOROURACIL INJECTION MT IRINOTECAN INJECTION MT OXALIPLATIN MT FOSAPREPITANT INJECTION BEVACIZUMAB-BVZR, BIOSIMILAR, 10 MG (ZIRABEV), IV MT INJECTION, UDENYCA 0.5 MG Dakota Armando MD [address] [employer], [place] [address] Anc Hem/Onc [place] [facility] DEPT CLOSED - 10/08/23 [address] [place] [address] Referral ID Status Reason Start Date Expiration Date Visits Re quested Visits Authorized [id number] Closed 08/30/2023 11/24/2099 999 99 Encounter Details Date Type Department Care Team (Latest Contact Info) Description 02/04/2024 9:15 AM EDT Hem/Onc Treatment Hematology/Oncolog y Treatment, [place] [address] [place] [phone] Rehana, Chair 10 Hem Onc Sc[address] [place] [address] Encounter for antineoplastic chemotherapy*; Metastasis to liver [...] mouth in the morning. 0 Active Pancrelipase (Zgk-Lglo-Duak) 22724-[address] UNIT Oral Capsule Delayed Release Particles (Creon 15054) 2 cap with meals, 1 with larger [...] -19) 10/16/2022 Coronary artery disease invo lving [place] coronary artery of [place] heart without angina pectoris 08/20/2022 Overview: Severe [...] lipids WNL Factor V+heteroqygous. 04/10 colon-Dr Eller [facility] 2 polyps 1 tubular adenoma. Kevin 5y 2013 sleep study [facility] WNL [address] Elena [facility] Essential hypertension with goal blood pressure [...] WNL, antiphos lipids WNL Factor V+heteroqygous. FM YT-YLBP-PJZZG DIS NEC documented as of this encounter (statuses as of 03/27/2024) Immunizations Name Administration Dates Next Due COVID-19 mRNA, LNP-s, No Pre serve, 2-Dose Series ([employer]) 01/13/2022,07/21/2021,02/01/2021,01/04 COVID-19, MRNA-LNP, 23-24, P F, 30 MCG/0.3 mL, 12 YRS AND ABOVE, IM ([facility]) 09/12/2023 Covid-19, Mrna, Lnp-s, Pf, B ivalent, 30 Mcg, IM, 12 yrs and above ([employer]) 08/16/2022 HEP A - Hepatitis A (Adult [...] 9:45 AM EDT Pharmacy Pharmacy Hematology Oncology [place] [address] [place] [address] [facility] [place] Hem/Onc [address] [place] [address] 04/07/2024 10:00 AM EDT Laboratory Laboratory [facility] [place] [address] [place], [place] [phone] Rehana, Lab [facility] [address] [place], [place] [address] 04/07/2024 11:15 AM EDT Office Visit Hematology/Oncology [facility] [place] [address] [place], [place] [phone] Dakota Armando MD [address] [place], [place] [address] 04/07/2024 11:45 AM EDT Hem/Onc Treatment Hematology/Oncology [facility] [address] [place], [place] [phone] Rehana, Chair [address] Hem On[address] [place], [place] [address] 07/20/2024 10:15 AM EDT Office Visit Dermatology [facility] [place] [address] [place], [place] [address] Cal Jernigan MD [address] [facility] [place], [place] [address] 07/21/2024 1:45 PM EDT Office Visit Hematology/Oncology [facility] [place] [address] [place], [place] [phone] Dakota Armando MD [address] [place] [address] 07/24/2024 11:40 AM EDT Office Visit Family Practice [facility] [address] [place] [address] Sergio Barriga MD [address] [place] [address] Scheduled Procedures Name Priority Associated Diagnoses Date/Ti [...] this encounter Medical Devices Implanted Type Area Applique Sewer Device Identifier Shelf Expiration Date Model / Serial / Lot Duraclip 16mm Xlg Repostn - [id number] Implanted:Qty : 1 on 07/17/2021 by Guillermo Jones DO at [place]OSCOPY [facility] [place] [employer] [id number] 01/10/2024 [id number] / / [id number] Stent Viabil Biliary [id number] - [id number] Implanted:Qty : 1 on 07/17/2021 by Guillermo Jones DO at ENDOSCOPY [facility] [employer] [id number] 03/04/2024 [id number] / [id number] / [id number] Port Implant W/8f Poly Cath - [id number] Implanted:Qty : 1 on 09/13/2023 by Gary Rodriguez DO at OR [facility] Right: Chest CR BARD : PERIPHERAL VASCULAR [id number] 04/24/2025 [id number] / / [id number] documented as of this encounter Visit Diagnoses [...] Documents on File Type Date Recorded Patient Fish Hatchery Laborer Expl anation Advance Directives and Living Will [...] Agen t (per Health Care Power of Gastroenterology Professor document) [email or web address] Temo Cramer Sibling First Alternate Health Care Agent (per Health Care Power of Gastroenterology Professor document) [email or web address] Care Teams Metal Hardener Relationship Specialty Start Date End Date Sergio Barriga MD [address] [place] [address] PCP - General Family Medicine 08/07/19 documented as of this encounter
--- OUTSIDE RECORDS SUMMARY | 2024-04-18 23:52 | External Medical Summary | Summary of Care ---
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 0 Act miley Multi Vitamin Daily Oral Tablet Take by mouth. 0 Act miley Aspirin 81 MG Oral Tablet Delayed Release Take 1 Tablet by mouth in the morning. 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 With or without food. 240 Tablet 5 02/24/2024 Active documented as of this encounter (statuses as of 03/24/2024) Active Problems Problem Noted Date Diagnosed Date Malignant neoplasm of body of pancreas 3 Metastasis to liver 08/30/2023 Encounter for antineoplastic chemotherapy 2022 History of carcinoma of pancreas 07/18/2023 Post-viral cough syndrome 07/09/2023 Upper airway cough syndrome 07/09/2023 History of 2019 novel coronavirus disease (COVID -19) 10/16/2022 Coronary artery disease invo lving [place] coronary artery of [place] heart without angina pectoris 08/20/2022 Overview: Severe [...] lipids WNL Factor V+heteroqygous. 04/10 colon-Dr Eller [facility] 2 polyps 1 tubular adenoma. Kevin 5y 2013 sleep study [facility] WNL [address] Elena [facility] Essential hypertension with goal blood pressure less [...] as of this encounter (statuses as of 03/24/2024) Resolved Problems Problem Noted Date Diagnosed Date [...] WNL, antiphos lipids WNL Factor V+heteroqygous. FM RS-[id number]-SAKWW DIS NEC documented as of this encounter (statuses as of 03/24/2024) Immunizations Name Administration Dates Next Due COVID-19 mRNA, LNP-s, No Pre serve, 2-Dose Series (Fast[employer]) 01/13/2022,07/21/2021,02/01/2021,01/04 COVID-19, MRNA-LNP, 23-24, P F, 30 MCG/0.3 mL, 12 YRS AND ABOVE, IM ([facility] 09/12/2023 Covid-19, Mrna, Lnp-s, Pf, B [...] Care Team (Late st Contact Info) Description 03/24/2024 10:15 AM EDT Hem/Onc Treatment Hematology/Oncology Treatment, [place] [address] [facility], [place] [phone] Rehana, Chair 5 Hem On[address] [place] [address] Arrived 04/07/2024 11:15 AM EDT Office Visit Hematology/Oncology [facility] [address] [place] [phone] Dakota Armando MD 200 [facility] [place] [address] 07/20/2024 10:15 AM EDT Office Visit Dermatology [facility] 200 [facility] [address] [place] [address] Cal Jernigan MD 200 [facility] [place] [address] 07/21/2024 1:45 PM EDT Office Visit Hematology/Oncology [facility] [address] [place] [phone] Dakota Armando MD 200 [facility] [place] [address] 07/24/2024 11:40 AM EDT Office Visit Family Practice [facility] [address] [place] [address] Sergio Barriga MD [address] [place] [address] Pending Results Name Type Priority Associated Diagnoses Date /Time CA 19-9 Lab STAT 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..] this encounter Medical Devices Implanted Type Area 2Nd Grade Teacher Device Identifier Shelf Expiration Date Model / Serial / Lot Duraclip 16mm Xlg Repostn - [id number] Implanted:Qty : 1 on 07/17/2021 by Guillermo Jones DO at ENDOSCOPY [facility] [employer] [id number] 01/10/2024 [id number] / / [id number] Stent Viabil Biliary [id number] - [id number] Implanted:Qty : 1 on 07/17/2021 by Guillermo Jones DO at ENDOSCOPY [facility] [employer] [id number] 03/04/2024 [id number] / [id number] / [id number] Port Implant W/8f Poly Cath - [id number] Implanted:Qty : 1 on 09/13/2023 by Gary Rodriguez DO at OR [facility] Right: Chest CR BARD : PERIPHERAL VASCULAR [id number] 04/24/2025 [id number] / / [id number] documented as of this encounter Procedures Procedure Name Priority Date/Time Associated Diagnosis Comments DIFFERENTIAL, AUTOMATED STAT 03/24/2024 9:22 AM EDT 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0 - 2.0 % 03/24/2024 9:33 AM EDT [facility] 56 Absolute Neutrophils 4.39 1.80 - 7.70 K/uL 03/24/2024 9:33 AM EDT [facility] 56- Absolute Lymphocytes 1.07 1.00 - 4.80 K/ul 03/24/2024 9:33 AM EDT [facility] 56- Absolute Monocytes 0.83 0.00 - 1.10 K/uL 03/24/2024 9:33 AM EDT [facility] 56- Absolute Eosinophils 0.22 0.00 - 0.70 K/uL 03/24/2024 9:33 AM EDT [facility] 56- Absolute Basophils 0.03 0.00 - 0.20 K/uL 03/24/2024 9:33 AM EDT [facility] 56 Blood Venous blood specimen / Unknown Venipuncture / Unknown 03/24/2024 9:22 AM EDT 03/24/2024 9:22 AM EDT Dakota Armando MD LAB BLOOD ORDERABLES [facility] [address]- [address] [place] [address] * (ABNORMAL) CBC (03/24/2024 9:22 AM EDT) WBC 6.54 4.00 - 10.80 K/uL 03/24/2024 9:33 AM EDT [facility] 56 RBC 3.72 4.50 - 5.25 M/uL 03/24/2024 9:33 AM EDT [address] HGB 10.9(L) 14.0 - 16.8 g/dL 03/24/2024 9:33 AM EDT [facility] 56 HCT 34.9(L) 40.0 - 48.4 % 03/24/2024 9:33 AM EDT [address] MCV 93.8 82.0 - 99.5 fL 03/24/2024 9:33 AM EDT [address] MCH 29.3 27.0 - 34.0 pg 03/24/2024 9:33 AM EDT [address] MCHC 31.2 32.0 - 36.0 g/dL 03/24/2024 9:33 AM EDT [facility] 56 RDW 18.2 11.5 - 15.5 % 03/24/2024 9:33 AM EDT [address] PLT 140 140 - 400 K/uL 03/24/2024 9:33 AM EDT [address] MPV 8.9 6.6 - 11.1 fL 03/24/2024 9:33 AM T [facility] 56 Blood Venous blood specimen / Unknown Venipuncture / Unknown 03/24/2024 9:22 AM EDT 03/24/2024 9:22 AM EDT Dakota Armando MD LAB BLOOD ORDERABLES [facility] [address] [place] [address] documented in this encounter Visit Diagnoses Diagnosis 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) Malignant neoplasm of body of pancreas 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 Healthcare Agents on File Name Relationship Healthcare Agent Relationship Communication Virginie Cramer Spouse Health Care Agen t (per Health Care Power of Numerical Control Operator document) [email or web address] [email or web address] Sibling First Alternate Health Care Agent (per Health Care Power of Numerical Control Operator document) [email or web address] Care Teams Dispensing Optician Apprentice Relationship Specialty Start Date End Date Sergio Barriga MD [address] [place] [address] PCP - General Family Medicine 08/07/19 documented as of this encounter
--- OUTSIDE RECORDS SUMMARY | 2024-04-18 23:52 | External Medical Summary | Summary of Care ---
Author Name Unknown Organization [facility] Address [address] [place] [address] Phone [phone] Care Team Providers Care Call Center Support Consultant Name Role Phone Sergio Barriga MD Primary Care Provider + Reason for Visit * Reason Comments Medication Management Encounter Details Date Type Department Care Team (Late st Contact Info) Description 03/24/2024 9:30 AM EDT Pharmacy Pharmacy Hematology Oncology [facility] [address] [place] [address] [facility] Hem/Onc [address] [place], [place] [phone] Malignant neoplasm of pancreas, unspecified location of [...] mouth in the morning. 0 Active Pancrelipase (Cem-Xetk-Rzex) 89603-[address]43 UNIT Oral Capsule Delayed Release Particles (Creon 12600) 2 cap with meals, 1 with larger [...] -19) 10/16/2022 Coronary artery disease invo lving [place] coronary artery of [place] heart without angina pectoris 08/20/2022 Overview: Severe [...] lipids WNL Factor V+heteroqygous. 04/10 colon-Dr Eller [facility] 2 polyps 1 tubular [...] WNL, antiphos lipids WNL Factor V+heteroqygous. FM OF-TBOL-EXDZN DIS NEC documented as of this encounter (statuses as of 03/24/2024) Immunizations Name Administration Dates Next Due COVID-19 mRNA, LNP-s, No Pre serve, 2-Dose Series ([email or web address]) 01/13/2022,07/21/2021,02/01/2021,01/04 COVID-19, MRNA-LNP, 23-24, P F, 30 MCG/0.3 mL, 12 YRS AND ABOVE, IM ([facility]) 09/12/2023 Covid-19, Mrna, Lnp-s, Pf, B ivalent, [...] this encounter Progress Notes * Jen Teixeira, [facility] - 03/24/2024 1:35 PM EDT MEDICATION THERAPY MANAGEMENT SOTORASIB TREATMENT PROGRESS NOTE Rafael Cramer [phone] Patient Phone Numbers Preferred Lab: [facility] Specialty Pharmacy: [facility] Communication: Spoke to: Patient Treatment: Medication: Sotorasib (Lumakras) Indication/Staging/Diagnosis Code: met pancreatic cancer, KRAS G12C mutation / C25.1 Dose: 960mg (8-120mg tab) daily Administration: +/- food Start Date: 03/11/24 Primary Hanger/Oncologist: Dr. Gina Armando Additional Therapy: Gemcitabine Abraxane [...] since last visit? No Assessment and Plan: Hgb declining. Will monitor closely LFTs improving to WNL All other labs stable Continue sotorasib and q2wk labs Assessment of compliance: compliant Assessment of adverse effects attributed to drug therapy: Nausea/Vomiting - absent Diarrhea - absent Edema - absent Rash - absent Musculoskeletal pain - absent Dose adjustment needed based on lab or adverse drug reaction? No Follow up: 1 week Jen Teixeira, PharmD, BCOP Clinical Pharmacist, [facility] Oral Chemotherapy [facility] 03/24/2024, 2:53 PM Monitoring Parameters: Estimated CrCl Serum creatinine: [...] monthly Treatment Parameters Per PI Pertinent labs: Latest Reference Range & Units 03/10/24 09:26 03/24/24 09:22 WBC 4.00 - 10.80 K/uL 6.54 6.54 RBC 4.50 - 5.25 M/uL 3.87 3.72 HGB 14.0 - 16.8 g/dL 11.4 (L) 10.9 (L) HCT 40.0 - 48.4 % 36.4 (L) 34.9 (L) MCV 82.0 - 99.5 fL 94.1 93.8 MCH 27.0 - 34.0 pg 29.5 29.3 MCHC 32.0 - 36.0 g/dL 31.3 31.2 RDW 11.5 - 15.5 % 19.3 18.2 PLT 140 - 400 K/uL 249 140 MPV 6.6 - 11.1 fL 8.7 8.9 CBC WITH WBC DIFFERENTIAL Rpt ! Rpt ! Absolute Neutrophils 1.80 - 7.70 K/uL 4.05 4.39 Latest Reference Range & Units 03/10/24 09:26 03/24/24 09:22 Albumin 3.8 - 5.0 g/dL 3.9 4.0 AST 10 - 50 U/L 70 (H) 26 ALT 10 - 50 U/L 71 (H) 28 Alkaline Phosphatase 35 - 130 U/L 143 (H) 114 Bilirubin, Total <=1.2 mg/dL 0.4 0.7 Time Spent on Encounter: 6 - 10 minutes Encounter Group: Oncology Encounter Interventions Item Category: Oral Chemotherapy Sotorasib Problem/Rationale: Safety: Needs additional monitoring - Medication Requires monitoring Pharmacist Intervention(s): Lab monitoring and Toxicity monitoring Magnitude of Intervention: Monitoring with direction (Level 1) documented in this encounter Plan of Treatment Upcoming Encounters Date Type Department Care Team (Late st Contact Info) Description 03/31/2024 9:45 AM EDT Pharmacy Pharmacy Hematology Oncology [address] [address] [facility] Hem/Onc [address] [place] [address] 04/07/2024 10:00 AM EDT Laboratory Laboratory [facility] [place] 200 [facility] [place] [phone] Rehana, Lab [address] [place] [address] 04/07/2024 11:15 AM EDT Office Visit Hematology/Oncology [facility] [place] [address] [place] [phone] Dakota Armando MD 200 [facility] [place] [address] 04/07/2024 11:45 AM EDT [facility] [address] [place] [phone] Rehana, Chair 9 Hem Onc [place] [address] [place] [address] 07/20/2024 10:15 AM EDT Office Visit Dermatology [facility] [place] [address] [place] [address] Cal Jernigan MD [address] [place], [place] [address] [place] [address] 07/21/2024 1:45 PM EDT Office Visit Hematology/Oncology [facility] 200 [facility] [place], [place] [phone] Dakota Armando MD 200 [facility] [place], [place] [address] 07/24/2024 11:40 AM EDT Office Visit Family Practice [facility] [address] [place] [address] Sergio Barriga MD [address] [place] [address] Scheduled Procedures Name Priority Associated Diagnoses Date/Ti [...] this encounter Medical Devices Implanted Type Area Gis Engineer Device Identifier Shelf Expiration Date Model / Serial / Lot Duraclip 16mm Xlg Repostn - [id number] Implanted:Qty : 1 on 07/17/2021 by Guillermo Jones DO at ENDOSCOPY [facility] [employer] [id number] 01/10/2024 [id number] / / [id number] Stent Viabil Biliary [id number] - [id number] Implanted:Qty : 1 on 07/17/2021 by Guillermo Jones DO at ENDOSCOPY [facility] [employer] REYNALDO [id number] 03/04/2024 [id number] / [id number] / [id number] Port Implant W/8f Poly Cath - [id number] Implanted:Qty : 1 on 09/13/2023 by Gary Rodriguez DO at OR [facility] Right: Chest CR BARD : PERIPHERAL VASCULAR [id number] 04/24/2025 [id number] / / [id number] documented as of this encounter Visit Diagnoses Diagnosis Malignant neoplasm of pancreas, unspecified location of malignancy (HCC)- Primary documented in this encounter Advance Directives Documents on File Type Date Recorded Patient Orthopedic Tech Expl anation Advance Directives and Living Will [...] Agen t (per Health Care Power of Plugger Man document) [email or web address] [email or web address] Sibling First Alternate Health Care Agent (per Health Care Power of Plugger Man document) [email or web address] Care Teams Call Center Support Consultant Relationship Specialty Start Date End Date Sergio Barriga MD [address] [place] [address] PCP - General Family Medicine 08/07/19 documented as of this encounter
--- OUTSIDE RECORDS SUMMARY | 2024-04-18 23:52 | External Medical Summary ---
Author Name Unknown Address Unknown Organization K[facility] [place] [address] Laboratory Report Ordering Provider Test Date Status JOSE ROY 03/24/2024 09:22:51 Final Observation Date Value Abnormality Reference (Units ) Status WBC, Total 03/24/2024 09:22:51 6.54 4.00-10.8 0 (K/uL) Final RBC 03/24/2024 09:22:51 3.72 4.50-5.25 (M/uL) Final Hemoglobin 03/24/2024 09:22:51 10.9 Below low normal 14 .0-16.8 (g/dL) Final HCT 03/24/2024 09:22:51 34.9 Below low normal 40. 0-48.4 (%) Final MCV 03/24/2024 09:22:51 93.8 82.0-99.5 (fL) Final MCH 03/24/2024 09:22:51 29.3 27.0-34.0 (pg) Final MCHC 03/24/2024 09:22:51 31.2 32.0-36.0 (g/dL) Final RDW 03/24/2024 09:22:51 18.2 11.5-15.5 (%) Final Platelets 03/24/2024 09:22:51 140 140-400 (K /uL) Final MPV 03/24/2024 09:22:51 8.9 6.6-11.1 ( fL) Final Performing Location [facility] [place] [address]
--- OUTSIDE RECORDS SUMMARY | 2024-04-18 23:52 | External Medical Summary ---
Author Name Unknown Address Unknown Organization K[facility] [address] [place] [address] Laboratory Report Ordering Provider Test Date Status JOSE ROY 03/24/2024 09:22:51 Final Observation Date Value Abnormality Reference (Units ) Status BUN 03/24/2024 09:22:51 12 6-20 (mg/dL) Final Creatinine 03/24/2024 09:22:51 0.9 0.6-1.2 (mg/dL) Final Glomerular filtration rate/1.73 sq M.predicted [Volume Rate/Area] in Serum, Plasma or Blood by Creatinine-based formula (CKD-EPI) 03/24/2024 09:22:51 87 >=60 (mL/min) Final eGFR is calculated based on the CKD-EPI 2020 equation Sodium 03/24/2024 09:22:51 135 135-146 (m mol/L) Final Potassium 03/24/2024 09:22:51 4.0 3.5-5.1 (m mol/L) Final Cl 03/24/2024 09:22:51 99 98-107 (mm ol/L) Final CO2 03/24/2024 09:22:51 26 22-32 (mmo l/L) Final Anion gap 03/24/2024 09:22:51 10 7-15 (mmol /L) Final Glucose 03/24/2024 09:22:51 155 Above high normal 70 -120 (mg/dL) Final Albumin 03/24/2024 09:22:51 4.0 3.8-5.0 (g /dL) Final AST (Aspartate aminotransferase) 03/24/2024 09:22:51 26 10-50 (U/L) Fin al Alk Phos 03/24/2024 09:22:51 114 35-130 (U/ L) Final Bilirubin, Total 03/24/2024 09:22:51 0.7 <=1 .2 (mg/dL) Final Calcium 03/24/2024 09:22:51 9.3 8.4-10.2 ( mg/dL) Final Protein 03/24/2024 09:22:51 6.9 6.0-8.3 (g /dL) Final ALT (Alanine aminotransferase) 03/24/2024 09:22:51 28 10-50 (U/L) Silverio baker Performing Location [facility] [address] [place] [address]
--- OUTSIDE RECORDS SUMMARY | 2024-04-18 23:52 | External Medical Summary | Summary of Care ---
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) Procedures KS PACLITAXEL PROTEIN BOUND [place] IN GEMCITABINE HCL NOS 200MG Dakota Armando MD 200 [facility] [place] [address] Anc Hem/Onc [address] [address] Referral ID Status Reason Start Date Expiration Date V isits Requested Visits Authorized [id number] Authorized 02/14/2024 11/24/[phone] Encounter Details Date Type Department Care Team (Latest Contact Info) Description 03/24/2024 10:15 AM EDT Hem/Onc Treatment Hematology/Oncolog y Treatment, [address] [phone] Rehana, Chair [address] Hem On[address] [place] [address] Encounter for antineoplastic chemotherapy*; Malignant neoplasm of [...] mouth in the morning. 0 Active Pancrelipase (Iba-Kvjj-Kvvl) [address]6072-[address] UNIT Oral Capsule Delayed Release Particles (Creon 80850) 2 cap with meals, 1 with larger [...] -19) 10/16/2022 Coronary artery disease invo lving [place] coronary artery of [place] heart without angina pectoris 08/20/2022 Overview: Severe [...] lipids WNL Factor V+heteroqygous. 04/10 colon-Dr Case [facility] 2 polyps 1 tubular adenoma. Kevin 5y 2013 sleep study [facility] WNL [address] Elena [facility] Essential hypertension with goal blood [...] WNL, antiphos lipids WNL Factor V+heteroqygous. FM GI-SVCM-KJFOD DIS NEC documented as of this encounter (statuses as of 03/24/2024) Immunizations Name Administration Dates Next Due COVID-19 mRNA, LNP-s, No Pre serve, 2-Dose Series (Help/Systems) 01/13/2022,07/21/2021,02/01/2021,01/04 COVID-19, MRNA-LNP, 23-24, P F, 30 MCG/0.3 mL, 12 YRS AND ABOVE, IM ([facility]) 09/12/2023 Covid-19, Mrna, Lnp-s, Pf, B ivalent, 30 Mcg, IM, 12 yrs and above (Help/Systems) 08/16/2022 HEP A - Hepatitis A (Adult [...] Description 04/07/2024 10:00 AM EDT Laboratory Laboratory [facility] [place] [address] [place] [phone] Rehana, Lab [facility] 200 [facility] [place] [address] 04/07/2024 11:15 AM EDT Office Visit Hematology/Oncology [facility] [place] 200 [facility] [place] [phone] Dakota Armando MD 200 [facility] [place] [address] 04/07/2024 11:45 AM EDT Hem/Onc Treatment Hematology/Oncology Treatment, [place] [address] [facility] [address] [place], [place] [phone] Rehana, Chair 9 Hem On[address] [place] [address] 07/20/2024 10:15 AM EDT Office Visit Dermatology [facility] [place] [address] [place] [address] Cal Jernigan MD 200 [facility] [place] [address] 07/21/2024 1:45 PM EDT Office Visit Hematology/Oncology [facility] [place] [address] [place] [phone] Dakota Armando MD [address] [place] [address] 07/24/2024 11:40 AM EDT Office Visit [facility] [address] [facility] [place] [address] Sergio Barriga MD [address] [place] [address] Scheduled Procedures Name Priority Associated Diagnoses Date/Ti [...] this encounter Medical Devices Implanted Type Area Violent Crimes Detective Device Identifier Shelf Expiration Date Model / Serial / Lot Duraclip 16mm Xlg [facility] [id number] Implanted:Qty : 1 on 07/17/2021 by Guillermo Jones DO at ENDOSCOPY [facility] [employer] REYNALDO [id number] 01/10/2024 [id number] / / [id number] Stent Viabil Biliary [id number] - [id number] Implanted:Qty : 1 on 07/17/2021 by Guillermo Jones DO at ENDOSCOPY [facility] [employer] REYNALDO [id number] 03/04/2024 [id number] / [id number] / [id number] Port Implant W/8f Poly Cath - [id number] Implanted:Qty : 1 on 09/13/2023 by Gary Rodriguez DO at OR [facility] Right: Chest CR BARD : PERIPHERAL VASCULAR [id number] 04/24/2025 [id number] / / [id number] documented as of this encounter Visit Diagnoses [...] ONCE PRN Other, Hypersensitivity Reaction, Starting on Sat03/24/24 at 1029, Until Sat03/25/24 at 1028, For 24 hours EPINEPHrine 1 MG/ML inj 0.3 mg 0.3 mg, Intramuscular, ONCE PRN Other, Hypersensitivity Reaction or Anaphylaxis, Starting on Sat03/24/24 at 1029, Until Sat03/25/24 at 1028, For 24 hours hEParin 100 UNIT/ML Lock Flush inj 500 Units 500 Units (5 mL), IV Lock, PRN Other, IV Flush, Starting on Sat03/24/24 at 1029, Until Sat03/25/24 at 1028, For 24 hours, Do not flush if lock, PICC, or central line not in place; IV infusing or unable to flush. Given 03/24/2024 12:46 PM EDT 500 Units Hydrocortisone Sod Suc (PF) (Solu-Cortef) inj 100 mg 100 mg, IV Push, ONCE PRN Other, Hypersensitivity Reaction, Starting on Sat03/24/24 at 1029, Until Sat03/25/24 at 1028, For 24 hours LORAzepam (Ativan) tab 0.5 mg 0.5 mg, Oral, ONCE PRN Anxiety, Nausea, Starting on Sat03/24/24 at 1130, Until Discontinued NSS infusion Intravenous, at 50 mL/hr, PRN, Starting on Sat03/24/24 at 1130, Until Discontinued, Maintenance line Start Infusion 03/24/2024 10:46 AM EDT 50 mL/hr oxygen GAS Inhalation, OXYGEN, First dose on Sat03/24/24 at 1100, Until Discontinued, Device/Managed by: Low Flow Device, [...] Flush, Starting on Sat03/24/24 at 1029, Until Sat03/25/24 at 1028, For 24 hours, Do not flush if lock, PICC, or central line not in place; IV infusing or unable to flush. Given 03/24/2024 12:46 PM EDT 10 mL Inactive Administered Medications - up to [...] 12:15 PM EDT 1,800 mg 644 mL/hr ondansetron (Zofran) tab 8 mg 8 [...] 11:26 AM EDT 200 mg 80 mL/hr documented in this encounter Advance Directives Documents on File Type Date Recorded Patient Conference Service Coordinator Expl anation Advance Directives and Living Will [...] Agen t (per Health Care Power of Top Taper Machine document) [email or web address] First Alternate Health Care Agent (per Health Care Power of Top Taper Machine document) [email or web address] Care Teams Database Designer Relationship Specialty Start Date End Date Sergio Barriga MD [address] [place] [address] PCP - General Family Medicine 08/07/19 documented as of this encounter
--- OUTSIDE RECORDS SUMMARY | 2024-04-18 23:52 | External Medical Summary | Summary of Care ---
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) Procedures MS LEUCOVORIN CALCIUM INJECTION MS FLUOROURACIL INJECTION MS IRINOTECAN INJECTION MS OXALIPLATIN MS FOSAPREPITANT INJECTION BEVACIZUMAB-BVZR, BIOSIMILAR, 10 MG (ZIRABEV), IV MS INJECTION, UDENYCA 0.5 MG Dakota Armando MD [address] [employer], [place] [address] Anc Hem/Onc [facility] DEPT CLOSED - 10/08/23 [address] [place] [phone] Referral ID Status Reason Start Date Expiration Date Visits Re quested Visits Authorized [id number] Closed 08/30/2023 11/24/[phone] Encounter Details Date Type Department Care Team (Latest Contact Info) Description 02/04/2024 9:15 AM EDT Hem/Onc Treatment Hematology/Oncolog y Treatment, [place] [address] [place] [address] Rehana, Chair 10 Hem Onc [address] [place] [address] Encounter for antineoplastic chemotherapy*; Metastasis to liver [...] mouth in the morning. 0 Active Pancrelipase (Ehy-Reys-Dnrd) [address] UNIT Oral Capsule Delayed Release Particles (Creon 61145) 2 cap with meals, 1 with larger [...] -19) 10/16/2022 Coronary artery disease invo lving [place] coronary artery of [place] heart without angina pectoris 08/20/2022 Overview: Severe [...] lipids WNL Factor V+heteroqygous. 04/10 colon-Dr Eller [facility] 2 polyps 1 tubular adenoma. Kevin 6y 2013 sleep study [facility] WNL [address] Elena [facility] Essential hypertension with goal blood [...] WNL, antiphos lipids WNL Factor V+heteroqygous. FM AB-OIPJ-FBPTX DIS NEC documented as of this encounter (statuses as of 03/27/2024) Immunizations Name Administration Dates Next Due COVID-19 mRNA, LNP-s, No Pre serve, 2-Dose Series (DialedIN) 01/13/2022,07/21/2021,02/01/2021,01/04 COVID-19, MRNA-LNP, 23-24, P F, 30 MCG/0.3 mL, 12 YRS AND ABOVE, IM ([facility]) 09/12/2023 Covid-19, Mrna, Lnp-s, Pf, B ivalent, 30 Mcg, IM, 12 yrs and above (DialedIN) 08/16/2022 HEP A - Hepatitis A (Adult [...] 9:45 AM EDT Pharmacy Pharmacy Hematology Oncology [place] [address] [place] [address] [facility] Hem/Onc [address] [place] [address] 04/07/2024 10:00 AM EDT Laboratory Laboratory [facility] [place] [address] [place], [place] [phone] Rehana, Lab [facility] [address] [place], [place] [address] 04/07/2024 11:15 AM EDT Office Visit Hematology/Oncology [facility] [place] [address] [place], [place] [phone] Dakota Armando MD [address] [place], [place] [address] 04/07/2024 11:45 AM EDT Hem/Onc Treatment Hematology/Oncology [facility] [address] [place], [place] [phone] Rehana, Chair 9 Hem On[address] [place], [place] [address] 07/20/2024 10:15 AM EDT Office Visit Dermatology [facility] [place] [address] [place], [place] [address] Cal Jernigan MD 200 [facility] [place], [place] [address] 07/21/2024 1:45 PM EDT Office Visit Hematology/Oncology [facility] [place] [address] [place], [place] [phone] Dakota Armando MD [address] [place] [address] 07/24/2024 11:40 AM EDT Office Visit Family Practice [facility] [address] [place] [address] Sergio Barriga MD [address] [place] [address] Scheduled Procedures Name Priority Associated Diagnoses Date/Ti [...] this encounter Medical Devices Implanted Type Area Prep Cook Device Identifier Shelf Expiration Date Model / Serial / Lot Duraclip 16mm Xlg Repostn - [id number] Implanted:Qty : 1 on 07/17/2021 by Guillermo Jones DO at ENDOSCOPY [facility] [employer] REYNALDO [id number] 01/10/2024 [id number] / / [id number] Stent Viabil Biliary [id number] - [id number] Implanted:Qty : 1 on 07/17/2021 by Guillermo Jones DO at ENDOSCOPY [facility] [employer] [id number] 03/04/2024 [id number] / [id number] / [id number] Port Implant W/8f Poly Cath - [id number] Implanted:Qty : 1 on 09/13/2023 by Gary Rodriguez DO at OR [facility] Right: Chest CR BARD : PERIPHERAL VASCULAR [id number] 04/24/2025 [id number] / / [id number] documented as of this encounter Visit Diagnoses [...] Documents on File Type Date Recorded Patient Habilitation Specialist Expl anation Advance Directives and Living Will [...] Agen t (per Health Care Power of Signal Maintainer document) [email or web address] [email or web address] First Alternate Health Care Agent (per Health Care Power of Signal Maintainer document) [email or web address] Care Teams Systems Testing Laboratory Technician Relationship Specialty Start Date End Date Sergio Barriga MD [address] [place] [address] PCP - General Family Medicine 08/07/19 documented as of this encounter
--- OUTSIDE RECORDS SUMMARY | 2024-04-18 23:52 | External Medical Summary ---
Author Name Unknown Address Unknown Organization K09:[facility] [place] [address] Laboratory Report Ordering Provider Test Date Status JOSE ROY 03/24/2024 09:22:51 Final Observation Date Value Abnormality Reference (Units ) Status SYNC LEUKOCYTES IN BLOOD BY AUTOMATED COUNT 03/24/2024 09:22:51 6.54 4.00-10.80 (K/uL) Final Segs 03/24/2024 09:22:51 67.0 40.0-75.0 (%) Final Lymphs % 03/24/2024 09:22:51 16.4 Below low normal 18.0-42.0 (%) Final Monos 03/24/2024 09:22:51 12.7 Above high normal 1.0-11.0 (%) Final Eosinophils 03/24/2024 09:22:51 3.4 0.0-6.0 (%) Final Basos 03/24/2024 09:22:51 0.5 0.0-2.0 (%) Final Absolute Segs 03/24/2024 09:22:51 4.39 1.80-7.70 (K/uL) Final Lymphs, absolute 03/24/2024 09:22:51 1.07 1.00-4.80 (K/ul) Final Monos, Abs 03/24/2024 09:22:51 0.83 0.00-1.10 (K/uL) Final Eos, Abs 03/24/2024 09:22:51 0.22 0.00-0.70 (K/uL) Final Basos, Abs 03/24/2024 09:22:51 0.03 0.00-0.20 (K/uL) Final Performing Location [facility] [place] [address]
--- OUTSIDE RECORDS SUMMARY | 2024-04-18 23:52 | External Medical Summary | Summary of Care ---
Author Name Unknown Organization [facility] Address [address] [place] [address] Phone [phone] Care Team Providers Care President & Ceo Name Role Phone Sergio Barriga MD Primary Care Provider + Reason for Visit * Reason Comments Chemotherapy FOLFIRINOX D1C9 * Episode Based Medications (Routine) - Closed Specialty Diagnoses / Procedures Referred By Linda hu Referred To Contact Diagnoses Encounter for antineoplastic chemotherapy 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) 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) Procedures ME LEUCOVORIN CALCIUM INJECTION ME FLUOROURACIL INJECTION ME IRINOTECAN INJECTION ME OXALIPLATIN ME FOSAPREPITANT INJECTION BEVACIZUMAB-BVZR, BIOSIMILAR, 10 MG (ZIRABEV), IV ME INJECTION, UDENYCA 0.5 MG Dakota Armando MD [address] [employer], [place] [address] Anc Hem/Onc [facility] DEPT CLOSED - 10/08/23 [address] [place] [address] Referral ID Status Reason Start Date Expiration Date Visits Re quested Visits Authorized [id number] Closed 08/30/2023 11/24/[phone] Encounter Details Date Type Department Care Team (Latest Contact Info) Description 02/04/2024 9:15 AM EDT Hem/Onc Treatment Hematology/Oncolog y Treatment, [place] [address] [place] [address] Rehana, Chair 10 Hem Onc Scenery [address] [place] [address] Encounter for antineoplastic chemotherapy*; Metastasis to liver [...] mouth in the morning. 0 Active Pancrelipase (Xzr-Dqre-Vihq) [address] UNIT Oral Capsule Delayed Release Particles (Creon 27922) 2 cap with meals, 1 with larger [...] -19) 10/16/2022 Coronary artery disease invo lving [place] coronary artery of [place] heart without angina pectoris 08/20/2022 Overview: Severe [...] lipids WNL Factor V+heteroqygous. 04/10 colon-Dr Eller [facility] 2 polyps 1 tubular adenoma. Kevin 5y 2013 sleep study [facility] WNL [address] Elena [facility] Essential hypertension with goal blood [...] WNL, antiphos lipids WNL Factor V+heteroqygous. FM WF-YEAF-NNJKB DIS NEC documented as of this encounter (statuses as of 03/27/2024) Immunizations Name Administration Dates Next Due COVID-19 mRNA, LNP-s, No Pre serve, 2-Dose Series (Gera-IT) 01/13/2022,07/21/2021,02/01/2021,01/04 COVID-19, MRNA-LNP, 23-24, P F, 30 MCG/0.3 mL, 12 YRS AND ABOVE, IM ([facility]) 09/12/2023 Covid-19, Mrna, Lnp-s, Pf, B ivalent, 30 Mcg, IM, 12 yrs and above (Gera-IT) 08/16/2022 HEP A - Hepatitis A (Adult [...] 9:45 AM EDT Pharmacy Pharmacy Hematology Oncology [place] [address] [place] [address] [facility], [facility] Hem/Onc [address] [place] [address] 04/07/2024 10:00 AM EDT Laboratory Laboratory [facility] [place] [address] [place], [place] [phone] Rehana, Lab [facility] [address] [place], [place] [address] 04/07/2024 11:15 AM EDT Office Visit Hematology/Oncology [facility] [place] [address] [place], [place] [phone] Dakota Armando MD [address] [place], [place] [address] 04/07/2024 11:45 AM EDT Hem/Onc Treatment Hematology/Oncology [facility] [address] [place], [place] [phone] Rehana, Chair 9 Hem On[address] [place], [place] [address] 07/20/2024 10:15 AM EDT Office Visit Dermatology [facility] [place] [address] [place], [place] [address] Cal Jernigan MD 200 [facility] [place], [place] [address] 07/21/2024 1:45 PM EDT Office Visit Hematology/Oncology [facility] [place] [address] [place], [place] [phone] Dakota Armando MD [address] [place] [address] 07/24/2024 11:40 AM EDT Office Visit Family Practice [facility] [address] [place] [address] Sergio Barriga MD [address] [place] [address] Scheduled Procedures Name Priority Associated Diagnoses Date/Ti [...] this encounter Medical Devices Implanted Type Area Flat Surfacer Jewel Device Identifier Shelf Expiration Date Model / Serial / Lot Duraclip 16mm Xlg Repostn - [id number] Implanted:Qty : 1 on 07/17/2021 by Guillermo Jones DO at ENDOSCOPY [facility] [employer] REY[employer]O [id number] 01/10/2024 [id number] / / [id number] Stent Viabil Biliary [id number] - [id number] Implanted:Qty : 1 on 07/17/2021 by Guillermo Jones DO at ENDOSCOPY [facility] [employer] [id number] 03/04/2024 [id number] / [id number] / [id number] Port Implant W/8f Poly Cath - [id number] Implanted:Qty : 1 on 09/13/2023 by Gary Rodriguez DO at OR [facility] Right: Chest CR BARD : PERIPHERAL VASCULAR [id number] 04/24/2025 [id number] / / [id number] documented as of this encounter Visit Diagnoses [...] Documents on File Type Date Recorded Patient Beer Maker Expl anation Advance Directives and Living Will [...] Agen t (per Health Care Power of Granite Installer document) [email or web address] First Alternate Health Care Agent (per Health Care Power of Granite Installer document) Care Teams President & Ceo Relationship Specialty Start Date End Date Sergio Barriga MD [address] [place] [address] PCP - General Family Medicine 08/07/19 documented as of this encounter
--- OUTSIDE RECORDS SUMMARY | 2024-04-18 23:52 | External Medical Summary | Summary of Care ---
Author Name Unknown Organization [facility] [address] [facility] [address] Phone [phone] Care Team Providers Care Senior Civil Engineer Name Role Phone Sergio Barriga MD Primary Care Provider + Reason for Visit * Reason Comments Chemotherapy Chemo/recheck Encounter Details Date Type Department Care Team (Late st Contact Info) Description 03/17/2024 9:00 AM EDT Office Visit Hematology/Oncology [facility] [place] [address] [facility] [place] [phone] Amber Huizar CRNP [address] [facility] [address] 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)*; 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); Encounter for antineoplastic chemotherapy Allergies Active Allergy Reactions Criticality Noted Date Comments Lisinopril Cough Low 08/07/2019 documented as of this encounter (statuses as of 03/17/2024) Medications Medication Sig Dispensed Refills Start Date End Date Status Boost 100 Calorie Smart Oral Liquid Take by mouth. 0 Act miley Multi Vitamin Daily Oral Tablet Take by mouth. 0 Act miley Aspirin 81 MG Oral Tablet Delayed Release Take 1 Tablet by mouth in the morning. 0 Active Pancrelipase (Ncn-Qopq-Ullp) 66578-42298 UNIT Oral Capsule Delayed Release Particles (Creon 05696) 2 cap with meals, 1 with larger [...] as of this encounter (statuses as of 03/17/2024) Active Problems Problem Noted Date Diagnosed Date [...] lipids WNL Factor V+heteroqygous. 04/10 colon-Dr Eller [facility] 2 polyps 1 tubular adenoma. Kevin 6y 2013 sleep study [facility] WNL [address] Elena [facility] Essential hypertension with goal blood pressure [...] as of this encounter (statuses as of 03/17/2024) Resolved Problems Problem Noted Date Diagnosed Date [...] WNL, antiphos lipids WNL Factor V+heteroqygous. FM KA-BPEE-EUNSS DIS NEC documented as of this encounter (statuses as of 03/17/2024) Immunizations Name Administration Dates Next Due COVID-19 mRNA, LNP-s, No Pre serve, 2-Dose Series (Designer Material) 01/13/2022,07/21/2021,02/01/2021,01/04 COVID-19, MRNA-LNP, 23-24, P F, 30 MCG/0.3 mL, 12 YRS AND ABOVE, IM [email or web address]) 09/12/2023 Covid-19, Mrna, Lnp-s, Pf, B [...] Sign Reading Time Taken Comments Blood Pressure 146/78 03/17/2024 8:48 AM EDT Pulse 83 03/17/2024 8:48 AM EDT Temperature 36.2 C (97.1 F) 03/17/2024 8:48 AM ED T Respiratory Rate - - Oxygen Saturation 93% 03/17/2024 8:48 AM EDT Inhaled Oxygen Concentration - - Weight 63.5 kg (140 lb 1.6 oz) 03/17/2024 8:48 A M EDT Height - - Body Mass Index 20.69 03/03/2024 11:47 AM EDT documented in this [...] as of this encounter Progress Notes * Amber Huizar CRNP - 03/17/2024 9:00 AM EDT Hematology/Oncology Outpatient [place] [address] Name: Rafael Cramer Date: 03/17/2024 CHIEF COMPLAINT: Rafael Cramer is a 74 year old male here today for f/u visit today. Patient of Dr. Dakota Armando. From Patient chart confirmed with patient. HEMATOLOGY/ONCOLOGY DIAGNOSIS: Pancreatic head adenocarcinoma, portal vein [...] he is not on any anticoagulant Treatment. Biopsy from the right lobe of the liver --> poorly differentiated adenocarcinoma consistent withknown pancreatic primary.(08/21/2023) - NGS--> KRAS G12C Cancer Staging Final pathology showed T2 N1 (01/17 lymph node positive for metastatic disease. Negative margin. DATE OF DIAGNOSIS: 07/17/21 TREATMENT HISTORY: -He underwent Whipple's procedure by Dr. Mike Westbrook on 08/07/2021 at [facility]. -He completed gemcitabine and Xeloda combination [...] by Dr. Mike Westbrook on 08/07/2021 at [facility]. 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 -T2 [...] received 2nd opinion from medical oncologist from [place] who agreed with treatment plan. Also recommending [...] the right upper lobe. Dr Santiago from [place] spoke with me about his case. He [...] will start that. HISTORY OF PRESENT ILLNESS: Rafael Cramer is a 74 year old male with a history as outlined above. Currently here for f/u visittoday. Patient feeling well today. No complaints or concerns. Seems to be tolerating Sotorasib well. Does note a fever one day after he receives chemotherapy for about 8 hours and then resolves. Doestake one tylenol during this time. Denies mouth sores or pain. Denies nausea/vomiting. Has some mild neuropathy in his toes and finger tips intermittently. Does have body aches, mostly in the right shoulder. Bowels moving well with creon. Denies any lower extremity swelling. Weight is stable. Has agood appetite. Does drink boost occasionally. 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 COLONOSCOPY, DIAGNOSTIC (RECTUM) 09/14/2022 diverticulosis, fair prep, repeat 1 yr / [facility] COLORECTAL CANCER SCREEN;W/FLE 2006 EGD, FLEXIBLE,W/ENDOSCOPIC US 07/12/2021 pancreatic mass, GB sludge, CBD dilation, abnormal lymph nodes / [facility] EGD, W/ENDOSCOPIC US N/A 07/17/2021 ESOPHAGOGASTRODUODENOSCOPY (EGD), FLEXIBLE, TRANSORAL, ENDOSCOPIC ULTRASOUND performed by Guillermo Jones DO at [facility] 07/12/2021 ERCP, DIAGNOSTIC, SPECIMEN COLLECTION N/A 07/17/2021 ENDOSCOPIC RETROGRADE CHOLANGIOPANCREATOGRAPHY ([facility]) DIAGNOSTIC performed by Guillermo Jones [facility] INSER TUNN ACC DEV;5 YRS/OLDER Right 09/13/2023 INSERT TUNNELED CENTRAL VENOUS ACCESS WITH SUBQ PORT performed by Gary Rodriguez DO at [facility] IR BIOPSY 08/21/2023 KNEE ARTHROSCOPY/DEBRIDEMENT Left 07/12/[address] Zhu left partial medical meniscectomy & chondroplasty. REMOVE PANCREAS, PARTIAL (WHIPPLE) 08/07/[address]21 [place] Mike Westbrook. REMOVE TONSILS & ADENOIDS, UNDER 12 Tonsillectomy/Adenoids,<12 Y/O SHOULDER ARTHROSCOPY/DEBRIDEMENT Left 08/31/2014 Dr Zhu +biceps tenotomy debride labrum, subacromial decompression & distal clavicle excision. 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 Tobacco Use Smoking status: Never Smokeless tobacco: Never Vaping Use Vaping Use: Never used Substance and Sexual Activity Alcohol use: Yes Comment: 4 drinks/ day had stopped w/CA 2020, now rare. Drug use: Yes Frequency: 5.0 times per week Types: Marijuana Comment: oral caps. for appetite, relaxation. Sexual activity: Yes Partners: Female Comment: . 2 stepchildren. [facility] & [place]. no grandkids Other Topics Concern Not on file Social History Narrative Likes gardening. Cabin in [facility]. Likes to weights, walking. Active [place] [employer]. 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 Social Determinants [...] Tablet by mouth in the morning. Pancrelipase (Vql-Qemb-Cjzw) [id number] UNIT Oral Capsule Delayed Release Particles (Creon 17598) 2 cap with meals, 1 with larger [...] BY MOUTH AT BEDTIME 90 Tablet 3 ALPRAZolam 1 MG Oral Tablet (xaNAX) TAKE ONE TABLET BY MOUTH AT BEDTIME NEEDED FOR SLEEP 30 Tablet 2 Sotorasib 120 MG Oral Tablet Take 960 mg by mouth in the morning. With or without food. 240 Tablet 5 No current facility-administered medications for this visit. REVIEW OF SYSTEMS: See HPI - otherwise negative OBJECTIVE: Filed Vitals: 03/17/24 0848 BP: 146/78 Pulse: 83 Temp: 36.2 C (97.1 F) TempSrc: Tympanic SpO2: 93% Weight: 63.5 kg (140 lb 1.6 oz) Wt Readings from Last 5 Encounters: 03/17/24 63.5 kg (140 lb 1.6 oz) 03/10/24 63.7 kg (140 lb 6.4 oz) 03/03/24 61.7 kg (136 lb) 02/25/24 61.8 kg (136 lb 3.2 oz) 02/19/24 60.1 kg (132 lb 9.6 oz) PHYSICAL EXAM: ECOG: Performance Status 0 = [...] masses Neurologic: Normal - Grossly intact LABS: Results for orders placed or performed in visit on 03/10/24 COMPREHENSIVE METABOLIC PANEL Result Value Ref Range BUN 13 6 - 20 mg/dL Creatinine 1.0 0.6 - 1.2 mg/dL Estimated Glomerular Filtration Rate 85 >=60 mL/min Sodium 140 135 - 146 mmol/L Potassium 4.3 3.5 - 5.1 mmol/L Chloride 103 98 - 107 mmol/L CO2 29 22 - 32 mmol/L Anion Gap 8 7 - 15 mmol/L Glucose 97 70 - 120 mg/dL Albumin 3.9 3.8 - 5.0 g/dL AST 70 (H) 10 - 50 U/L Alkaline Phosphatase 143 (H) 35 - 130 U/L Bilirubin, Total 0.4 <=1.2 mg/dL Calcium 9.0 8.4 - 10.2 mg/dL Protein 6.9 6.0 - 8.3 g/dL ALT 71 (H) 10 - 50 U/L CBC Result Value Ref Range WBC 6.54 4.00 - 10.80 K/uL RBC 3.87 4.50 - 5.25 M/uL HGB 11.4 (L) 14.0 - 16.8 g/dL HCT 36.4 (L) 40.0 - 48.4 % MCV 94.1 82.0 - 99.5 fL MCH 29.5 27.0 - 34.0 pg MCHC 31.3 32.0 - 36.0 g/dL RDW 19.3 11.5 - 15.5 % PLT 249 140 - 400 K/uL MPV 8.7 6.6 - 11.1 fL DIFFERENTIAL, AUTOMATED Result Value Ref Range WBC 6.54 4.00 - 10.80 K/uL Neutrophils % 61.9 40.0 - 75.0 % Lymphocytes % 17.4 (L) 18.0 - 42.0 % Monocytes % 11.8 (H) 1.0 - 11.0 % Eosinophils % 8.3 (H) 0.0 - 6.0 % Basophils % 0.6 0.0 - 2.0 % Absolute Neutrophils 4.05 1.80 - 7.70 K/uL Absolute Lymphocytes 1.14 1.00 - 4.80 K/ul Absolute Monocytes 0.77 0.00 - 1.10 K/uL Absolute Eosinophils 0.54 0.00 - 0.70 K/uL Absolute Basophils 0.04 0.00 - 0.20 K/uL IMPRESSION/PLAN: Metastatic Pancreatic Adenocarcinoma - KRAS G12C Encounter for chemotherapy Current treatment plan: Gemcitabine and Abraxane chemotherapy every other week with KRAS G12C mutation target with LUMAKRAS ( Sotarasib) 960 mg once a day. Patient is tolerating treatment plan remarkably well with no significant adverse effects. Will closely monitor CIPN After 2 treatments with gemcitabine and Abraxane, will consider for stopping and continuing with Sotorasib. Patient confirms starting Sotorasib 03/11/24. Continue MTM pharmacy monitoring - appreciate recommendations Plan for restaging PET/CT s/p 3-4 months of therapy CA19-9 monthly Continue to eat small meals throughout the day Continue Creon 2 tablets with meals RTC in three weeks with physician for chemo return CHRISTO Torres documented in this encounter Nursing Notes * Tracy June MED ASSIST - 03/17/2024 8:53 AM EDT Patient identifed by name and birthdate Do you have any concerns about pain management for today's visit? No Living Will or Advance Directive for Health Care as noted on the problem list. [facility] is a way you can talk to your provider on line through e-mail. Would you like to sign up? I can activate it for you? ALREADY ACTIVE Filed Vitals: 03/17/24 0848 BP: 146/78 Pulse: 83 Temp: 36.2 C (97.1 F) TempSrc: Tympanic SpO2: 93% Weight: 63.5 kg (140 lb 1.6 oz) Patient was instructed to not get [...] Description 03/24/2024 9:20 AM EDT Laboratory [facility] [address] [place] [phone] Renee Kimball [facility] [address] [facility] [place] [address] 03/24/2024 9:30 AM EDT Pharmacy Pharmacy Hematology Oncology [facility] [address] [place] [address] [facility] Hem/Onc [address] [place] [address] 03/24/2024 10:15 AM EDT [facility] [address] [facility] [address] [place] [phone] Rehana, Chair 5 Hem Onc [address] [place] [address] 04/07/2024 11:15 AM EDT Office Visit Hematology/Oncology [facility] [place] [address] [place] [phone] Dakota Armando MD [address] [facility] [place] [address] 07/20/2024 10:15 AM EDT Office Visit Dermatology [facility] [place] [address] [place], [place] [address] Cal Jernigan MD [address] [facility] [place], [place] [address] 07/21/2024 1:45 PM EDT Office Visit Hematology/Oncology [facility] [place] [address] [place] [phone] Dakota Armando MD [address] [place], [place] [address] 07/24/2024 11:40 AM EDT Office Visit [facility] [address] [address] [address] Sergio Barriga MD [address] [place] [address] Scheduled Procedures Name Priority Associated Diagnoses Date/Ti [...] this encounter Medical Devices Implanted Type Area Story Teller Device Identifier Shelf Expiration Date Model / Serial / Lot Duraclip 16mm Xlg Repostn - [id number] Implanted:Qty : 1 on 07/17/2021 by Guillermo Jones DO at [facility] [employer] [id number] 01/10/2024 [id number] / / [id number] Stent Viabil Biliary 24qib6il - [id number] Implanted:Qty : 1 on 07/17/2021 by Guillermo Jones DO at [facility] [employer] [id number] 03/04/2024 [id number] / [id number] / [id number] Port Implant W/8f Poly Cath - [id number] Implanted:Qty : 1 on 09/13/2023 by Gary Rodriguez DO at [facility] Right: Chest CR BARD : PERIPHERAL VASCULAR [id number] 04/24/2025 [id number] / / [id number] documented as of this encounter Visit Diagnoses Diagnosis 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)- Primary Malignant neoplasm of body of pancreas 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 Encounter for antineoplastic chemotherapy documented in this encounter Advance Directives Documents on File Type Date Recorded Patient Co Teacher Expl anation Advance Directives and Living Will [...] Agen t (per Health Care Power of Separator Operator [employer] document) [email or web address] [email or web address] Sibling First Alternate Health Care Agent (per Health Care Power of Separator Operator [employer] document) [email or web address] Senior Civil Engineer Relationship Specialty Start Date End Date Sergio Barriga MD [address] [place] [address] PCP - General Family Medicine 08/07/19 documented as of this encounter
--- OUTSIDE RECORDS SUMMARY | 2024-04-18 23:52 | External Medical Summary | Summary of Care ---
Author Name Unknown Organization [facility] Address [address] [place] [address] Phone [phone] Care Team Providers Care Timber Deadener Name Role Phone Sergio Barriga MD Primary Care Provider + Reason for Visit * Reason Comments Medication Management Encounter Details Date Type Department Care Team (Late st Contact Info) Description 2024 9:45 AM EDT Pharmacy Pharmacy Hematology Oncology [facility] [address] [place] [address] [facility], [facility] Hem/Onc [address], [place] [id number] Malignant neoplasm of pancreas, unspecified location of [...] mouth in the morning. 0 Active Pancrelipase (Mej-Vaze-Xomc) 35666-35665 UNIT Oral Capsule Delayed Release Particles (Creon 14535) 2 cap with meals, 1 with larger [...] -19) 10/16/2022 Coronary artery disease invo lving [place] coronary artery of [place] heart without angina pectoris 08/20/2022 Overview: Severe [...] lipids WNL Factor V+heteroqygous. 04/10 colon-Dr Eller [facility] 2 polyps 1 tubular adenoma. Kevin 6y 2013 sleep study [facility] WNL [address] Elena [facility] Essential hypertension with goal blood [...] WNL, antiphos lipids WNL Factor V+heteroqygous. FM IV-PTOK-CJWMW DIS NEC documented as of this encounter (statuses as of 2024) Immunizations Name Administration Dates Next Due COVID-19 mRNA, LNP-s, No Pre serve, 2-Dose Series (TheSquareFoot) 01/13/2022,07/21/2021,02/01/2021,01/04 COVID-19, MRNA-LNP, 23-24, P F, 30 MCG/0.3 mL, 12 YRS AND ABOVE, IM ([facility]) 09/12/2023 Covid-19, Mrna, Lnp-s, Pf, B ivalent, [...] this encounter Progress Notes * Jen Teixeira, [facility] - 2024 9:45 AM EDT MEDICATION THERAPY MANAGEMENT SOTORASIB TREATMENT EDUCATION NOTE Rafael Cramer [phone] Patient Phone Numbers Preferred Lab: [facility] Specialty Pharmacy: [facility] ([facility] copy below into specialty comments) Treatment consent complete: yes Date: 02/19/24 Precertification complete: yes Date: 03/03/24 Communication: Spoke to: Patient Treatment: Medication: Sotorasib (Lumakras) Indication/Staging/Diagnosis Code: met pancreatic cancer, KRAS G12C mutation / C25.1 Dose: 960mg (8-120mg tab) daily Administration: +/- food Start Date: 03/11/24 Primary Marketing Representative/Oncologist: Dr. Gina Armando Additional Therapy: Gemcitabine Abraxane Supportive Care Meds: Olanzapine Ondansetron Prochlorperazine Prophylactic Meds: none Treatment History: 08/07/21: Whipple's procedure 08/2021-01/2022: gemcitabine + capecitabine 09/17/23-01/2024: mFOLFIRINOX Medication education: Confirmed pt has received information regarding goals and duration of therapy: yes Reviewed dosing and administration: yes Reviewed importance of medication compliance (document recommendations if barriers identified): yes Reviewed appropriate storage conditions: yes Reviewed handling precautions: yes Reviewed handling body fluids and waste: yes Reviewed side effects, monitoring, and supportive care measures: yes Nausea/Vomiting This medication may cause nausea or vomiting Low/Minimal emetic risk: Zofran/Compazine PRN, but if consistently nauseated, can administer Osuhmg05 minutes prior to chemotherapy Dietary modifications: avoid spicy, greasy, fatty foods If vomiting, increase water intake to avoid dehydration When to call clinic: N/V refractory to antiemetics or if unable to keep up with oral intake Diarrhea This medication can cause loose stools You can purchase OTC loperamide (Imodium A-D) to help manage this side effect (4 mg x 1, followed by 2 mg Q4H or after every loose stool, not to exceed 16 mg/day) Drink plenty of fluids to prevent dehydration, ideally 8-10 glasses per day (unless a healthcare provider has instructed you to limit your fluid intake due to other health conditions) Dietary modifications: eat bland, low fiber foods such as bananas, rice, applesauce, and toast (BRAT diet), avoid dairy, avoid spicy, greasy or fatty foods When to call clinic: If approaching maximum dose of loperamide and still having diarrhea or if you have any s/sx of dehydration; if there is a concern for infectious diarrhea (especially in setting of neutropenia) Edema This medication may cause swelling and fluid accumulation. This occurs most frequently in the legs,but can also occur in the lungs. Avoid standing for long periods of time Advised to elevate legs above chest level when laying down Use of compression stockings When to call clinic: If symptoms persist, > 5 lb weight gain in one week, SOB develops. A medication called a diuretic may be prescribed to manage this side effect. Rash This medication may cause a rash. Severity can vary from being mild to severe, necessitating interruption of your chemotherapy treatment Moisturize your skin Avoid scented lotions, perfumes, colognes Avoid extreme heat Minimize sun exposure and wear sunscreen and protective clothing When to call clinic: If rash develops Musculoskeletal pain This medication may cause or worsen muscle aches or joint pains [If platelets are low, or drug is known to cause thrombocytopenia] Avoid taking NSAIDS (ibuprofen and naproxen) as these medications can lower your platelet count and increase your risk of bleeding (unless your provider has told you otherwise) You can use localized pain relievers like Bengay or Icy hot Heating pads or ice packs may also help with discomfort OTC tylenol can be used to manage aches and pains. Follow the instructions on the package When to call clinic: If pain is not relieved by the above supportive measures, or if the pain is affecting your quality of life or ability to complete ADLs Fatigue You may be more tired than usual or have less energy Stay as active as possible, but know it is okay to rest as needed Try to do some activity every day Plan activities at a time of day when you feel more energetic Hepatotoxicity This medication may affect your liver function Review plan for lab monitoring (drug-specific) Monitor and report symptoms such as: Stomach pain Dark-colored urine Yellowing of skin and/or eyes Confirmed pt has received written information about drug therapy: yes Changes to medication list since last visit: no Drug interaction assessment: Treatment plan and current medication list evaluated for drug-drug interactions. No clinically significant drug interaction identified Does patient rely on caregiver for medication management? no Assessment and plan: Pt verbalized understanding to information provided. All questions answered to the patient's satisfaction Pt was educated about role of Oral Chemotherapy Clinic and pharmacist in medication management, andplan for follow up. LFTs increasing to 1.4 times ULN Per PI, no dose adjustment recommended for LFTs < 5 times ULN Will monitor closely Per discussion with SUDEEP Ch, pt received sotorasib 03/09/24. Advised pt to start treatment today MTM to follow up one week after OV to assess lab results and treatment tolerability Follow up: 03/17 OV; 03/24 MTM with labs Jen Teixeira, SmithaD, BCOP Clinical Pharmacist, [facility] Oral Chemotherapy [facility] 2024, 10:09 AM Monitoring Parameters: Estimated CrCl Serum creatinine: 1 mg/dL 03/10/24 0926 Estimated creatinine clearance: 59.3 mL/min Hepatitis panel Latest Reference Range & [...] Pertinent labs: Latest Reference Range & Units 02/03/24 09:28 02/25/24 09:25 03/10/24 09:26 Albumin 3.8 - 5.0 g/dL 3.6 (L) 3.9 3.9 AST 10 - 50 U/L 41 85 (H) 70 (H) ALT 10 - 50 U/L 49 65 (H) 71 (H) Alkaline Phosphatase 35 - 130 U/L 226 (H) 180 (H) 143 (H) Bilirubin, Total <=1.2 mg/dL 0.2 0.3 0.4 Time Spent on Encounter: 11 - 15 minutes Encounter Group: Oncology Encounter Interventions Item Category: Oral Chemotherapy Sotorasib Problem/Rationale: Indication: Needs additional medication therapy - Untreated condition Education: Initial education Pharmacist Intervention(s): Discussed patient with nursing, Education provided, and Lab monitoring Magnitude of Intervention: Monitoring with direction (Level 1) documented in this encounter Plan of Treatment Upcoming Encounters Date Type Department Care Team (Late st Contact Info) Description 03/17/2024 9:00 AM EDT Office Visit Hematology/Oncology [facility] [place] [address] [facility] [address] [place] [phone] Amber Huizar CRNP [address] [place] [address] 03/24/2024 9:20 AM EDT Laboratory Laboratory [facility] Rehana [place] [address] [place] [phone] [place] [address] [address] [place] [address] 03/24/2024 9:30 AM EDT Pharmacy Pharmacy Hematology Oncology [facility] [address] [place] [address] [facility], [facility] Hem/Onc [address] [place] [address] 03/24/2024 10:15 AM EDT [facility] [address] [place] [address] Park, Chair 5 Hem Onc [facility] [address] [place], [place] [address] 07/20/2024 10:15 AM EDT Office Visit Dermatology [facility] [address] [facility] [place], [place] [address] Cal Jernigan MD [address] [facility] [place], [place] [address] 07/21/2024 1:45 PM EDT Office Visit Hematology/Oncology [facility] [address] [place], [place] [phone] Dakota Armando MD [address] [facility] [place], [place] [address] 07/24/2024 11:40 AM EDT Office Visit Family Practice [facility] [address] [place] [address] Sergio Barriga MD [address] [place] [address] Scheduled Procedures Name Priority Associated Diagnoses Date/Ti [...] this encounter Medical Devices Implanted Type Area Front Office Assistant Device Identifier Shelf Expiration Date Model / Serial / Lot Duraclip 16mm Xlg Repostn - [id number] Implanted:Qty : 1 on 07/17/2021 by Guillermo Jones DO at ENDOSCOPY [facility] [employer] [id number] 01/10/2024 [id number] / / [id number] Stent Viabil Biliary [id number] - [id number] Implanted:Qty : 1 on 07/17/2021 by Guillermo Jones DO at ENDOSCOPY [facility] [employer] [id number] 03/04/2024 [id number] / [id number] / [id number] Port Implant W/8f Poly Cath - [id number] Implanted:Qty : 1 on 09/13/2023 by Gary Rodriguez DO at OR [facility] Right: Chest CR BARD : PERIPHERAL VASCULAR [id number] 04/24/2025 [id number] / / [id number] documented as of this encounter Visit Diagnoses Diagnosis Malignant neoplasm of pancreas, unspecified location of malignancy (HCC)- Primary documented in this encounter Advance Directives Documents on File Type Date Recorded Patient Toy Stuffer Expl anation Advance Directives and Living Will [...] Agen t (per Health Care Power of Unhairing Inspector document) [email or web address] First Alternate Health Care Agent (per Health Care Power of Unhairing Inspector document) [email or web address] Care Teams Timber Deadener Relationship Specialty Start Date End Date Sergio Barriga MD [address] [place] [address] PCP - General Family Medicine 08/07/19 documented as of this encounter
--- OUTSIDE RECORDS SUMMARY | 2024-04-18 23:52 | External Medical Summary | Summary of Care ---
Author Name Unknown Organization [facility] Address [address] [place] [address] Phone [phone] Care Team Providers Care Quality Control Technician Name Role Phone Sergio Barriga MD Primary Care Provider + Reason for Visit * Reason Comments Medication Administration Udencya * Episode Based Medications (Routine) - Closed [...] 0.5 MG Dakota Armando MD [address] [place], [place] [address] Anc Hem/Onc [facility] DEPT CLOSED - 10/08/23 [address] [place] [address] Referral ID Status Reason Start Date Expiration Date Visits Re quested Visits Authorized [id number] Closed 08/30/2023 11/24/[phone] Encounter Details Date Type Department Care Team (Latest Contact Info) Description 02/07/2024 1:00 PM EDT Immunization/ Injection Hematology/Oncology Treatment, [place] [address] [place] [address] Nurse, Med 4 [address] [place] [address] Encounter for antineoplastic chemotherapy*; Metastasis to [...] mouth in the morning. 0 Active Pancrelipase (Oxz-Qeuj-Djbt) 64199-[address] UNIT Oral Capsule Delayed Release Particles (Creon 58962) 2 cap with meals, 1 with larger [...] -19) 10/16/2022 Coronary artery disease invo lving [place] coronary artery of [place] heart without angina pectoris 08/20/2022 Overview: Severe [...] Factor V+heteroqygous. 04/10 colon-Dr Eller [facility] 2 polyps 1 tubular adenoma. Kevin 6y 2013 sleep study [facility] WNL [address] Elena [facility] Essential hypertension with goal blood pressure less [...] WNL, antiphos lipids WNL Factor V+heteroqygous. FM ZI-MAOR-CZYQI DIS NEC documented as of this encounter (statuses as of 03/27/2024) Immunizations Name Administration Dates Next Due COVID-19 mRNA, LNP-s, No Pre serve, 2-Dose Series (DataCert) 01/13/2022,07/21/2021,02/01/2021,01/04 COVID-19, MRNA-LNP, 23-24, P F, 30 MCG/0.3 mL, 12 YRS AND ABOVE, IM ([employer]) 09/12/2023 Covid-19, Mrna, Lnp-s, Pf, B ivalent, 30 Mcg, IM, 12 yrs and above (DataCert) 08/16/2022 HEP A - Hepatitis A (Adult [...] as of this encounter Nursing Notes * Nereyda Xiao, TIM - 02/07/2024 1:31 PM EDT Pt arrived for Udencya injection. Administered in RACHELL. Pt tolerated well. To return in 2 weeks. Discharged in stable condition. documented in this encounter Plan of Treatment Upcoming Encounters Date Type Department Care Team (Late st Contact Info) Description 03/31/2024 9:45 AM EDT Pharmacy Pharmacy Hematology Oncology [place] [address] [place] [address] [facility], [facility] Hem/Onc [facility] [place] [address] 04/07/2024 10:00 AM EDT Laboratory Laboratory [facility] [place] [address] [place] [phone] Rehana, Lab [facility] [address] [place] [address] 04/07/2024 11:15 AM EDT Office Visit Hematology/Oncology [facility] [place] [address] [place], [place] [phone] Dakota Armando MD [address] [place], [place] [address] 04/07/2024 11:45 AM EDT Hem[facility] [address] [place], [place] [phone] Rehana, Chair [address] Hem Onc [facility] [address] [facility] [place], [place] [address] 07/20/2024 10:15 AM EDT Office Visit Dermatology [facility] [place] [address] [place], [place] [address] Cal Jernigan MD [address] [place], [place] [address] 07/21/2024 1:45 PM EDT Office Visit Hematology/Oncology [facility] [place] [address] [place], [place] [phone] Dakota Armando MD [address] [place] [address] [place] [address] 07/24/2024 11:40 AM EDT Office Visit Family Practice [facility] [address] [place] [address] Sergio Barriga MD [address] [place] [address] Scheduled Procedures Name Priority Associated Diagnoses Date/Ti [...] this encounter Medical Devices Implanted Type Area Yard Warehouse Worker Device Identifier Shelf Expiration Date Model / Serial / Lot Duraclip 16mm Xlg Repostn - [id number] Implanted:Qty : 1 on 07/17/2021 by Guillermo Jones DO at ENDOSCOPY [facility] [place] [employer] [id number] 01/10/2024 [id number] / / [id number] Stent Viabil Biliary [id number] - [id number] Implanted:Qty : 1 on 07/17/2021 by Guillermo Jones DO at ENDOSCOPY [facility] [employer] [id number] 03/04/2024 [id number] / [id number] / [id number] Port Implant W/8f Poly Cath - [id number] Implanted:Qty : 1 on 09/13/2023 by Gary Rodriguez DO at OR [facility] Right: Chest CR BARD : PERIPHERAL VASCULAR [id number] 04/24/2025 [id number] / / [id number] documented as of this encounter Visit Diagnoses [...] 6 mg 6 mg, Subcutaneous, ONCE, On Sat02/07/24 at 1345, For 1 dose Given 02/07/2024 1:06 PM EDT 6 mg Arm R ight Upper documented in this encounter Advance Directives Documents on File Type Date Recorded Patient Design Engineer Marine Equipment Expl anation Advance Directives and Living Will 10/23/2022 4:43 PM Virginie Rollins .PDF Latest Code Status on File Code Status Date Activated Date Inactivated Comments Full Code 07/16/2021 10:04 AM 07/18/2021 6:28 PM This order reflects the patients wishes and were consensually agreed upon. Healthcare Agents on File Name Relationship Healthcare Agent Relationship Communication Virginie Bowsercorrymayte Spouse Health Care Agen t (per Health Care Power of Installation Coordinator document) [email or web address] Sibling First Alternate Health Care Agent (per Health Care Power of Installation Coordinator document) [email or web address] Care Teams Quality Control Technician Relationship Specialty Start Date End Date Sergio Barriga MD [address] [place] [address] PCP - General Family Medicine 08/07/19 documented as of this encounter
--- OUTSIDE RECORDS SUMMARY | 2024-04-18 23:53 | External Medical Summary | Summary of Care ---
Author Name Unknown Organization [facility] Address [address] [facility] [address] Phone [phone] Care Team Providers Care Switchboard Installer Name Role Phone Sergio Barriga MD Primary Care Provider + Reason for Visit * Reason Onset Date Comments Precert Future 02/14/2024 Gemzar/Abraxane/ Lumakras Encounter Details Date Type Department Care Team (Late st Contact Info) Description 02/14/2024 Telephone Hematology/Oncology [facility] [place] [address] [place] [phone] Dakota Armando MD [address] [place] [address] Precert Future (Gemzar/Abraxane/Lumakr as) Allergies Active Allergy Reactions Criticality Noted Date Comments Lisinopril Cough Low 08/07/2019 documented as of this encounter (statuses as of 03/04/2024) Medications Medication Sig Dispensed Refills Start Date End Date Status Boost 100 Calorie Smart Oral Liquid Take by mouth. 0 Act miley Multi Vitamin Daily Oral Tablet Take by mouth. 0 Act miley Aspirin 81 MG Oral Tablet Delayed Release Take 1 Tablet by mouth in the morning. 0 Active Pancrelipase (Qcw-Rddn-Nfvx) 04650-[address] UNIT Oral Capsule Delayed Release Particles (Creon 85507) 2 cap with meals, 1 with larger [...] as of this encounter (statuses as of 03/04/2024) Active Problems Problem Noted Date Diagnosed Date Malignant neoplasm of body of pancreas 3 Metastasis to liver 08/30/2023 Encounter for antineoplastic chemotherapy 2022 History of carcinoma of pancreas 07/18/2023 Post-viral cough syndrome 07/09/2023 Upper airway cough syndrome 07/09/2023 History of 2019 novel coronavirus disease (COVID -19) 10/16/2022 Coronary artery disease invo lving [place] coronary artery of [place] heart without angina pectoris 08/20/2022 Overview: [...] as of this encounter (statuses as of 03/04/2024) Resolved Problems Problem Noted Date Diagnosed Date [...] WNL, antiphos lipids WNL Factor V+heteroqygous. FM YJ-[id number]-[id number] DIS NEC documented as of this encounter (statuses as of 03/04/2024) Immunizations Name Administration Dates Next Due COVID-19 mRNA, LNP-s, No Pre serve, 2-Dose Series (Extraprise) 01/13/2022,07/21/2021,02/01/2021,02/1 COVID-19, MRNA-LNP, 23-24, P F, 30 MCG/0.3 mL, 12 YRS AND ABOVE, IM (PFIZER-Comirnaty) 09/12/2023 Covid-19, Mrna, Lnp-s, Pf, B ivalent, [...] encounter Miscellaneous Notes * Telephone Encounter - Courtney Plascencia RN - 03/04/2024 12:18 PM EDT [facility] note from 03/03- they confirmed that [employer] had all required documented for assistance, they updated patient on this. * Telephone Encounter - Courtney Placsencia RN - 02/28/2024 9:57 AM EDT Form completed and faxed back to [facility]. * Telephone Encounter - Jen Teixeira RPh - 02/24/2024 7:55 AM EDT Sotorasib Rx sent to [facility] who will help with financial assistance * Telephone Encounter - Karen Kerns OSA - 02/19/2024 11:42 AM EDT Scheduled pt and called left detailed message regarding * Telephone Encounter - Juan Smith RN - 02/19/2024 10:18 AM EDT Patient education completed. Consent signed today for all treatment. MTM- fyi regarding auth approval for Lumakras- awaiting PFC review and copay assistance. Scheduling- Please call patient to schedule 2 hour apt on Saturday 02/24 "Gemzar/Abraxane C1,D1"(Tr). - Please also schedule lab apt 1 hour prior to treatment "CBCD, CMP" Pt prefers labs at 9AM and treatment at 10AM if available. * Telephone Encounter - Juan Smith RN - 02/14/2024 3:56 PM EDT Referral entered for Gemzar/Abraxane * Telephone Encounter - Karen Johnson OSA - 02/14/2024 1:28 PM EDT Apt's have been cancelled Pt made aware * Telephone Encounter - Juan Smith RN - 02/14/2024 12:45 PM EDT Received orders, beacon plan built and routed. Will await referral. MTM- FYI regarding new oral chemo plan for Sotorasib (Lumakras) Scheduling- Please cancel future FOLFOX appointments on 02/17, 03/03,03/17 as well as lab appointments prior. - Patient education scheduled: 02/19/24 - Consent to be signed 02/19/24 at office visit - Hep B labs completed 08/28/2021 - Standing lab orders placed: CBCD, CMP - Routed med refill to provider: Ezequiel Marsh documented in this encounter Plan of Treatment Upcoming Encounters Date Type Department Care Team (Late st Contact Info) Description 03/06/2024 1:15 PM EDT Pharmacy Pharmacy Hematology Oncology [facility] [address] [place] [address] [facility] [place] [place] [facility] Hem/Onc [address] [place] [address] 03/10/2024 9:20 AM EDT Laboratory Laboratory [facility] [place] [address] [facility] [place] [phone] Reh[place], Lab [address] [place] [address] 03/10/2024 10:30 AM EDT [facility] [address] [place] [phone] Rehana, Chair [address] Hem Onc [address] [place] [address] 03/17/2024 9:00 AM EDT Office Visit Hematology/Oncology [facility] [place] [address] [facility] [place] [phone] Amber Huizar CRNP [address] [place] [address] 07/20/2024 10:15 AM EDT Office Visit Dermatology [facility] [place] [address] [place] [address] Cal Jernigan MD [address] [facility] [place] [address] 07/21/2024 1:45 PM EDT Office Visit Hematology/Oncology [facility] [place] [address] [facility] [place], [place] [phone] Dakota Armando MD [address] [facility] [address] [place] [address] 07/24/2024 11:40 AM EDT Office Visit [facility] [address] [place] [address] Sergio Barriga MD [address] [place] [address] Scheduled Orders Name Type Priority Associated Diagnoses Orde r Schedule CBC WITH WBC DIFFERENTIAL Lab STAT 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) Every 2 Weeks for 24 Occurrences starting 02/14/2024 until 02/13/2025 COMPREHENSIVE METABOLIC PANEL Lab STAT 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) Every 2 Weeks for 24 Occurrences starting 02/14/2024 until 02/13/2025 Scheduled Procedures Name Priority Associated Diagnoses Date/Ti me COLONOSCOPY FLEXIBLE PROXIMA L DIAGNOSTIC Recall History of adenomatous polyp of colon Health Maintenance Due Date Last Done Comments Depression Screening 09/10/2023 09/10/2022 COLONOSCOPY-ANNUAL AGES 18-100 09/14/2023 09/14/2022, 09/14/2022, 04/02/2017 GFR 02/24/2025 02/25/2024, 01/23, 01/20/2024, Additional history exists Albumin/Creatinine Ratio 10/16/2025 10/16/2022, [...] this encounter Medical Devices Implanted Type Area Dog Trainer Device Identifier Shelf Expiration Date Model / Serial / Lot Duraclip 16mm Xlg Repostn - [id number] Implanted:Qty : 1 on 07/17/2021 by Guillermo Jones DO at [facility] [employer] [id number] 01/10/2024 [id number] / / [id number] Stent Viabil Biliary [id number] - [id number] Implanted:Qty : 1 on 07/17/2021 by Guillermo Jones DO at [facility] [place] [employer] [id number] 03/04/2024 [id number] / [id number] / [id number] Port Implant W/8f Poly Cath - [id number] Implanted:Qty : 1 on 09/13/2023 by Gary Rodriguez DO at OR [facility] Right: Chest CR BARD : PERIPHERAL VASCULAR [id number] 04/24/2025 [id number] / / [id number] documented as of this encounter Visit Diagnoses Diagnosis 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)- Primary Malignant neoplasm of body of pancreas documented in this encounter Advance Directives Documents on File Type Date Recorded Patient Case Management Rn Expl anation Advance Directives and Living Will 10/23/2022 4:43 PM Virginei Rollins .PDF Latest Code Status on File Code Status Date Activated Date Inactivated Comments Full Code 07/16/2021 10:04 AM 07/18/2021 6:28 PM This order reflects the patients wishes and were consensually agreed upon. Healthcare Agents on File Name Relationship Healthcare Agent Relationship Communication Virginie Cramer Spouse Health Care Agen t (per Health Care Power of Auto Body Repair Technician document) [email or web address] Temo Cramer Sibling First Alternate Health Care Agent (per Health Care Power of Auto Body Repair Technician document) [email or web address] Care Teams Switchboard Installer Relationship Specialty Start Date End Date Sergio Barriga MD [address] [place] [address] PCP - General Family Medicine 08/07/19 documented as of this encounter
--- OUTSIDE RECORDS SUMMARY | 2024-04-18 23:53 | External Medical Summary ---
Author Name Unknown Address Unknown Organization [facility] [place] [address] Laboratory Report Ordering Provider Test Date Status JOSE ROY 03/10/2024 09:26:34 Final Observation Date Value Abnormality Reference (Units ) Status SYNC LEUKOCYTES IN BLOOD BY AUTOMATED COUNT 03/10/2024 09:26:34 6.54 4.00-10.80 (K/uL) Final Segs 03/10/2024 09:26:34 61.9 40.0-75.0 (%) Final Lymphs % 03/10/2024 09:26:34 17.4 Below low normal 18.0-42.0 (%) Final Monos 03/10/2024 09:26:34 11.8 Above high normal 1.0-11.0 (%) Final Eosinophils 03/10/2024 09:26:34 8.3 Above high normal 0.0-6.0 (%) Final Basos 03/10/2024 09:26:34 0.6 0.0-2.0 (%) Final Absolute Segs 03/10/2024 09:26:34 4.05 1.80-7.70 (K/uL) Final Lymphs, absolute 03/10/2024 09:26:34 1.14 1.00-4.80 (K/ul) Final Monos, Abs 03/10/2024 09:26:34 0.77 0.00-1.10 (K/uL) Final Eos, Abs 03/10/2024 09:26:34 0.54 0.00-0.70 (K/uL) Final Basos, Abs 03/10/2024 09:26:34 0.04 0.00-0.20 (K/uL) Final Performing Location [facility] [address] [place] [address]
--- OUTSIDE RECORDS SUMMARY | 2024-04-18 23:53 | External Medical Summary ---
Author Name Unknown Address Unknown Organization [facility] [address] [place] [address] Laboratory Report Ordering Provider Test Date Status JOSE ROY 03/10/2024 09:26:34 Final Observation Date Value Abnormality Reference (Units ) Status BUN 03/10/2024 09:26:34 13 6-20 (mg/dL) Final Creatinine 03/10/2024 09:26:34 1.0 0.6-1.2 (mg/dL) Final Glomerular filtration rate/1.73 sq M.predicted [Volume Rate/Area] in Serum, Plasma or Blood by Creatinine-based formula (CKD-EPI) 03/10/2024 09:26:34 85 >=60 (mL/min) Final eGFR is calculated based on the CKD-EPI 2020 equation Sodium 03/10/2024 09:26:34 140 135-146 (m mol/L) Final Potassium 03/10/2024 09:26:34 4.3 3.5-5.1 (m mol/L) Final Cl 03/10/2024 09:26:34 103 98-107 (mm ol/L) Final CO2 03/10/2024 09:26:34 29 22-32 (mmo l/L) Final Anion gap 03/10/2024 09:26:34 8 7-15 (mmol /L) Final Glucose 03/10/2024 09:26:34 97 70-120 (mg /dL) Final Albumin 03/10/2024 09:26:34 3.9 3.8-5.0 (g /dL) Final AST (Aspartate aminotransferase) 03/10/2024 09:26:34 70 Above high normal 10-50 (U/L) Final Alk Phos 03/10/2024 09:26:34 143 Above high normal 35 -130 (U/L) Final Bilirubin, Total 03/10/2024 09:26:34 0.4 <=1 .2 (mg/dL) Final Calcium 03/10/2024 09:26:34 9.0 8.4-10.2 ( mg/dL) Final Protein 03/10/2024 09:26:34 6.9 6.0-8.3 (g /dL) Final ALT (Alanine aminotransferase) 03/10/2024 09:26:34 71 Above high normal 10-50 (U/L) Final Performing Location [facility] [address] [place] [address]
--- OUTSIDE RECORDS SUMMARY | 2024-04-18 23:53 | External Medical Summary | Summary of Care ---
Author Name Unknown Organization [facility] Address [address] [place] [address] Phone [phone] Care Team Providers Care Treatment Plant Mechanic Name Role Phone Sergio Barriga MD Primary Care Provider + Reason for Referral * Precert (Within 10 days (routine)) - Authorized Specialty Diagnoses / Procedures Referred By Linda hu Referred To Contact Radiology Diagnoses 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) Multiple lung nodules Procedures PET CT SKULL BASE TO MID-THIGH FDG Chris Kaplan MD [address] [id number] Referral ID Status Reason Start Date Expiration Date V isits Requested Visits Authorized [id number] Authorized 03/10/2024 999 999 Reason for Visit * Reason Comments Follow Up Here return pulm. Wo rsening cough. Per patient gotten a lot better since 03/01/24. Encounter Details Date Type Department Care Team (Late st Contact Info) Description 03/03/2024 12:00 PM EDT Office Visit Pulmonary Medicine, [facility] [address] [facility] [place] [address] Chris Kaplan MD [address] [id number] 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)*; Multiple lung nodules Allergies Active Allergy Reactions Criticality Noted Date Comments Lisinopril Cough Low 08/07/2019 documented as of this encounter (statuses as of 03/03/2024) Medications Medication Sig Dispensed Refills Start Date End Date Status Boost 100 Calorie Smart Oral Liquid Take by mouth. 0 Act miley Multi Vitamin Daily Oral Tablet Take by mouth. 0 Act miley Aspirin 81 MG Oral Tablet Delayed Release Take 1 Tablet by mouth in the morning. 0 Active Pancrelipase (Dru-Cehp-Jdqg) 91587-52910 UNIT Oral Capsule Delayed Release Particles (Creon 50306) 2 cap with meals, 1 with larger [...] as of this encounter (statuses as of 03/03/2024) Active Problems Problem Noted Date Diagnosed Date Malignant neoplasm of body of pancreas Metastasis to liver 08/30/2023 Encounter for antineoplastic chemotherapy 2022 History of carcinoma of pancreas 07/18/2023 Post-viral cough syndrome 07/09/2023 Upper airway cough syndrome 07/09/2023 History of 2019 novel coronavirus disease (COVID -19) 10/16/2022 Coronary artery disease invo lving [place] coronary artery of [place] heart without angina pectoris 08/20/2022 Overview: Severe [...] lipids WNL Factor V+heteroqygous. 04/10 colon-Dr Case [facility] 2 polyps 1 tubular adenoma. Kevin 6y 2013 sleep study [facility] WNL [address] Elena [facility] Essential hypertension with goal blood [...] as of this encounter (statuses as of 03/03/2024) Resolved Problems Problem Noted Date Diagnosed Date [...] WNL, antiphos lipids WNL Factor V+heteroqygous. FM XO-XNEG-KZUUU DIS NEC documented as of this encounter (statuses as of 03/03/2024) Immunizations Name Administration Dates Next Due COVID-19 mRNA, LNP-s, No Pre serve, 2-Dose Series (GENBAND) 01/13/2022,07/21/2021,02/01/2021,01/04 COVID-19, MRNA-LNP, 23-24, P F, 30 MCG/0.3 mL, 12 YRS AND ABOVE, IM ([facility]) 09/12/2023 Covid-19, Mrna, Lnp-s, Pf, B ivalent, 30 Mcg, IM, 12 yrs and above (GENBAND) 08/16/2022 HEP A - Hepatitis A (Adult [...] alcohol) 4 drinks/ day had stopped w/CA 2021, now rare. PHQ-2 Answer Date Recorded PHQ [...] Sign Reading Time Taken Comments Blood Pressure 120/70 03/03/2024 11:47 AM EDT Pulse 79 03/03/2024 11:47 AM EDT Temperature 35.8 C (96.4 F) 03/03/2024 11:47 AM E DT Respiratory Rate 16 03/03/2024 11:47 AM EDT Oxygen Saturation 99% 03/03/2024 11:49 AM EDT ra-amb Inhaled Oxygen Concentration - - Weight 61.7 kg (136 lb) 03/03/2024 11:47 AM EDT Height 175.3 cm (5' 9") 03/03/2024 11:47 AM EDT Body Mass Index 20.08 03/03/2024 11:47 AM EDT documented in this [...] as of this encounter Progress Notes * Chris Kaplan MD - 03/03/2024 11:55 AM EDT 03/03/2024 Pulmonary Medicine, [address] [place] [id number] Rafael Bowserenrique 1950 male 73 year old Attending Physician Documentation: 73-year-old male, significant past medical history of pancreatic cancer, status post Whipple's procedure 2020, chemotherapy January 2022, factor 5 Leiden me to [place], remote history of DVT 2018, ground-glass changes on CT scan, presenting for follow-up pulmonary evaluation. Patient had an episode of upper airway cough with wheezing few days ago, symptoms are resolved at present. Describes stable respiratory status, preserved exercise tolerance. Denies cough, wheezing, high-grade fever. Recent CT scan chest abdomen pelvis January 2024 showed near complete resolution of right lower lobe subpleural infiltrate/consolidation. New nodular disease noted in right upper lobe that was not noted on prior PET scan. Results were reviewed with the patient. Follow-up PET scan is recommended. Patient describes stable respiratory symptoms status with episodic minimal cough. Denies active hemoptysis. Fatigue and tiredness attributed to chemotherapy status. Patient compliant with Prilosec. Physical examination significant for class 2 throat, no evidence of cervical lymphadenopathy, clearlung curry with improved air entry in right base posteriorly without dullness, regular cardiac rhythm, no evidence of volume overload and nonlateralizing Neuro examination. Overall clinical picture is consistent with evidence of metastatic pancreatic cancer in a 73-year-old male with history of Whipple's procedure 3 years ago, currently undergoing active chemotherapy. Pulmonary findings include previously noted worsening right lung infiltrates which appear to be gradually improving based on today's chest x-ray. We would recommend continued conservative observation and repeat chest x-ray PA lateral view in 8 weeks. Role of empiric antibiotic therapy along with diagnostic bronchoscopy was discussed with the patient. Plan was made to continue with conservative observation unless there is a change in symptoms status. Reassessment of management plan in 8 weeks based on follow-up chest x-ray and symptoms status. Patient was advised to contact the office with any change in symptoms status. Assessment Resolving right lung infiltrates Chemotherapy status for metastatic disease related to pancreatic cancer Postviral cough Upper airway cough Probable Lyme disease History of pancreatic cancer 2020 History of DVT 2019 Factor 5 Leiden mutation status Abnormal chest x-ray 06/2023 with right lung scattered reticular nodular infiltrates Plan: Call with change in symptoms status Hx of Ca Pancreas, s/p Whipples 3 years ago Active Chemo Rx status Resolving RLL infiltrate (new since 06/2023, improved c/w 10/2023 to 12/02/2022) Hx of UACS Hx of DVT 2019 F-5 Leiden Status Plan: PET scan F/u 2-3 week f/u Follow Up: Return in about 6 months (around 09/02/2024) for Clinic Visit. | For: Clinic Visit | Check-out note: Hx of Ca Pancreas, s/p Whipples 3 years ago Active Chemo Rx status New RUL Lung Nodules Resolved RLL infiltrate Resolving RLL infiltrate (new since 06/2023, improved c/w 10/2023 to 12/02/2022) Hx of UACS Hx of DVT 2019 F-5 Leiden Status Plan: PET scan F/u 2-3 weeks, eval for XRT/Chemo per oncology and PET scan reults. Chris Kaplan MD Review of historical data: CT Chest Abdomen/Pelvis 01/27/2024: compared to prior CT dated 11/28/2023, there is interval decrease in consolidation within the rightlateral lung base. There is slight decrease in nodular ground-glass opacities within the right lung. There is slight increase in size of a consolidation along the inferior right upper lobe (series 6,image 74). In addition, there are new low-attenuation nodular consolidative opacities within the right upper lobe (series 14, image 148). Findings may represent waxing and waning infectious/inflammatory process. Particularly, low-attenuation nodular consolidative opacities within the right upper lobe may represent necrotizing pneumonia. However, metastatic disease cannot be excluded. Recommend PET-CT for further evaluation. XR CHEST 2 VIEWS - 12/02/2023 10:11 am HISTORY "fever of unknown origin" TECHNIQUE Frontal and lateral views of the chest were obtained. COMPARISON 11/05/2023 FINDINGS There is a right central venous port. Airspace consolidations in the right mid to lower, worse compared to the previous exam. Probable small right pleural effusion. No pneumothorax. Normal heart size. IMPRESSION IMPRESSION Worsening right-sided airspace opacities. Chest x-ray June 2023 showed scattered nodular infiltrates predominantly in right upper and mid lung curry, no effusions, no scarring or consolidation noted. Normal PFT January 2023 without any evidence of obstruction/restriction. HEMATOLOGY/ONCOLOGY DIAGNOSIS: Pancreatic head adenocarcinoma, portal vein [...] he is not on any anticoagulant Treatment. History of melanoma involving the left scapular region - No significant metabolic activity within a well-circumscribed pedunculated soft tissue mass (3.1 x 2.2 cm) arising from the pelvic floor and extending into the left ischiorectal fossa. 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 - NGS--> KRAS G12C Cancer Staging Final pathology showed T2 N1 (01/17 lymph node positive for metastatic disease. Negative margin.) DATE OF DIAGNOSIS: 07/17/21 TREATMENT HISTORY: -He underwent Whipple's procedure by Dr. Mike Westbrook on 08/07/2021 at [facility]. -He completed gemcitabine and Xeloda combination between 08/2021- 01/2022. mFOLFIRINOX every 14 days (09/17/23 -02/04/2024 ) Subjective CC: Chief Complaint Patient presents with Follow Up Here return pulm. Worsening cough. Per patient gotten a lot better since 03/01/24. HPI: Nursing Notes: Rachel Mahajan LPN 03/03/24 1150 Signed Chief Complaint Patient presents with Follow Up Here return pulm. Worsening cough. Per patient gotten a lot better since 03/01/24. MMRC Dyspnea Scale = 0 (I only get breathless with strenuous exercise) Objective Filed Vitals: 03/03/24 1147 03/03/24 1149 BP: 120/70 Pulse: 79 Resp: 16 Temp: 35.8 C (96.4 F) TempSrc: Tympanic SpO2: 99% 99% Weight: 61.7 kg (136 lb) Height: 1.753 m (5' 9") Exam: Const: No signs of acute distress present. Head/Face: Normal on inspection. Eyes: Conjunctivae clear. Pupils equal round and reactive to light. ENMT: Oropharynx: No erythema, exudate or masses. Posterior pharynx is normal. Neck: Supple and symmetric. Resp: Respiratory examination as outlined above CV: Rate is regular. Rhythm is regular. No heart murmur appreciated. Extremities: No edema of the lower limbs bilaterally. Skin: Skin is warm and dry. Neuro: Coordination normal. No involuntary movement. Psych: Patient's attitude is cooperative. Mood is normal. Affect is normal. Tests reviewed with the patient: CT CHEST/ABDOMEN/PELVIS WITH IV CONTRAST WITH ORAL CONTRAST Addendum Date: 01/28/2024 ADDENDUM: Upon submission of outside images dated 11/28/2023, the following changes have been made tothe report. As compared to prior CT dated 11/28/2023 perirectal mass is grossly stable in size measuring 4.1 x 2.7 cm, previously 4.3 x 2.3 cm. As compared to prior CT dated 11/28/2023, hepatic segment 6 hypodensity is slightly increased in size measuring 2.0 x 1.9 cm, previously 1.6 x 1.3 cm (remeasured). Stable subcentimeter retroperitoneal and mesenteric lymph nodes as compared to 11/28/2023. As compared to prior CT dated 11/28/2023, there is interval decrease in consolidation within the right lateral lung base. There is slight decrease in nodular ground-glass opacities within the right lung. There is slight increase in size of a consolidation along the inferior right upper lobe (series 6, image 74). In addition, there are new low-attenuation nodular consolidative opacities within the right upper lobe (series 14, image 148). Findings may represent waxing and waning infectious/inflammatory process. Particularly, low-attenuation nodular consolidative opacities within the right upper lobe may represent necrotizing pneumonia. However, metastatic disease cannot be excluded. Recommend PET-CT for further evaluation. Result Date: 01/28/2024 IMPRESSION: 1. Increased ground-glass opacities within the right upper lobe right middle lobe and right lower lobe with new nodular consolidative opacities. Findings are concerning for multifocal pneumonia, however metastatic disease cannot be entirely excluded. Follow-up to resolution with CT of the chest in 1 month is recommended. 2. Interval slight increase in size segment 6 ill-defined hypodense lesion which now measures 2.0 x 1.9 cm, previously 1.8 x 1.5 cm. No new hepatic lesion. 3. Status post Whipple with biliary stent in place. 4. Redemonstration of subcentimeter retroperitoneal, andmesenteric lymph nodes, stable from it 07/24/2023. This exam was submitted to the radiology office a ssistant worklist and the ordering provider will be notified that the final report is available in EPIC. XR CHEST 2 VIEWS Result Date: 12/02/2023 IMPRESSION Worsening right-sided airspace opacities. CT CHEST/ABD/PELVIS W IV AND W ORAL CONTRAST Result Date: 11/29/2023 IMPRESSION: 1. Interval increase in groundglass opacities throughout the right lung with new nodular soft tissue densities. Given the new solid components and pleural retraction, findings are suspicious for metastatic disease, however infectious and inflammatory etiologies cannot be excluded. The unilateral nature is atypical for both metastatic disease and drug reactions. Mild increase in right hilar lymphadenopathy is likely reactive to the right lung findings. Clinical correlation and short-term follow-up recommended. 2. Additionally, there is a focal consolidation at the lateral right lung base that is partially hypoenhancing suggestive of focal pneumonia. Clinical correlation and short-term follow-up recommended. 3. Stable 1.8 cm right hepatic heterogeneous hypoenhancing lesion, biopsy-proven metastasis. 4. Stable 1 cm rounded portacaval lymph node. Additional prominent retroperitoneal nodes unchanged. No new lymphadenopathy. 5. Nodular endophytic density at the posterior gastric fundus. This could represent focal ingested food material or a gastric fold, however a gastric polyp cannot be fully excluded. Recommend attention on follow- up. 6. 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 Images and interpretation personally reviewed by: Lucian Pollard MD Images and interpretation personally reviewed by: BENEDICTO LUNDBERG MD XR CHEST 2 VIEWS Result Date: 11/05/2023 IMPRESSION New indistinct airspace opacity at the right lung base with a small amount of loculated fluid in the major fissure, concerning for pneumonia. Follow-up to resolution is recommended to exclude metastatic disease. A request was sent to the CUSTOM FURRIER (Shift Lab Technician) to notify the responsible provider of these findings on 11/05/2023 at 12:15 p.m. IR INTERVENTIONAL RADIOLOGY PROCEDURE IN OR Result Date: 09/16/2023 IMPRESSION: Successful placement of a right chest power injectable medical port. Available Radiologic data was reviewed by me in PACS. The images were shown to the patient and findings were discussed with the patient. HOME MEDICATIONS: Sotorasib 120 MG Oral Tablet ALPRAZolam 1 MG Oral Tablet (xaNAX) traZODone HCl 100 MG Oral Tablet (Desyrel) Atorvastatin Calcium 40 MG Oral Tablet (Lipitor) Loratadine 10 MG Oral Tablet (Claritin) OLANZapine 10 MG Oral Tablet (ZyPREXA) Ondansetron HCl 8 MG Oral Tablet (Zofran) Prochlorperazine Maleate 10 MG Oral Tablet (Compazine) Pantoprazole Sodium 40 MG Oral Tablet Delayed Release (Protonix) Continuation of patient use of medical marijuana is approved Pancrelipase (Jep-Dmjz-Pprm) 82796-51830 UNIT Oral Capsule Delayed Release Particles (Creon 18411) Aspirin 81 MG Oral Tablet Delayed Release Multi Vitamin Daily Oral Tablet Boost 100 Calorie Smart Oral Liquid Lidocaine-Prilocaine 2.5-2.5 % External Cream (Emla) ROS: No reported history of Hemoptysis, Hematemesis, Melena No reported history of Dysuria, Hematuria, Flank Pain No reported history of chronic headache, seizures No reported history of Fall or trauma . No reported history of recent change in weight or appetite. Past Medical History: Diagnosis Date Alcohol abuse 08/07/2019 Allergic disorder Allergy unspecified Asthma, severity to be determined Asthma Chronic insomnia 05/18/2019 Coronary artery disease involving [place] coronary artery of [place] heart without angina pectoris 08/20/2022 Severe noted on 08/16 CT chest. Deep vein thrombosis (DVT) of lower extremity (HCC) 05/12/201901/13 dx date After 6h drvie. 04/12 recl nearly occlusive [...] Bilateral Dr Mix COLONOSCOPY 04/02/2017 Dr Eller [facility] 2 polyps 1 tubular adenoma. COLONOSCOPY, DIAGNOSTIC (RECTUM) 09/14/2022 diverticulosis, fair prep, repeat 1 yr / [facility] COLORECTAL CANCER SCREEN;W/FLE 2006 EGD, FLEXIBLE,W/ENDOSCOPIC US 07/12/2021 pancreatic mass, GB sludge, CBD dilation, abnormal lymph nodes / [facility] EGD, W/ENDOSCOPIC US N/A 07/17/2021 ESOPHAGOGASTRODUODENOSCOPY (EGD), FLEXIBLE, TRANSORAL, ENDOSCOPIC ULTRASOUND performed by Guillermo Jones DO at [facility] ERCP 07/12/2021 ERCP, DIAGNOSTIC, SPECIMEN COLLECTION N/A 07/17/2021 ENDOSCOPIC RETROGRADE CHOLANGIOPANCREATOGRAPHY (ERCP) DIAGNOSTIC performed by Guillermo Jones DO [facility] INSER TUNN ACC DEV;5 YRS/OLDER Right 09/13/2023 INSERT TUNNELED CENTRAL VENOUS ACCESS WITH SUBQ PORT performed by Gary Rodriguez DO at OR [facility] IR BIOPSY 08/21/2023 KNEE ARTHROSCOPY/DEBRIDEMENT Left 07/12/[address] Zhu left partial medical meniscectomy & chondroplasty. REMOVE PANCREAS, PARTIAL (WHIPPLE) 08/07/[address] [place] Mike Westbrook. REMOVE TONSILS & ADENOIDS, UNDER 12 Tonsillectomy/Adenoids,<13 Y/O SHOULDER ARTHROSCOPY/DEBRIDEMENT Left 08/31/2014 Dr Zhu +biceps tenotomy debride labrum, subacromial decompression & distal clavicle excision. 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 Tobacco Use Smoking status: Never Smokeless tobacco: Never Vaping Use Vaping Use: Never used Substance and Sexual Activity Alcohol use: Yes Comment: 4 drinks/ day had stopped w/CA 2020, now rare. Drug use: Yes Frequency: 5.0 times per week Types: Marijuana Comment: oral caps. for appetite, relaxation. Sexual activity: Yes Partners: Female Comment: . 2 stepchildren. [employer] [employer] & [place]. no grandkids Social History Narrative Likes gardening. Cabin in [place]. Likes to weights, walking. Active [place] [employer] [place]. 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 Social Determinants of Health Food Insecurity: No Food Insecurity (02/09/2023) Hunger Vital Sign Worried About Running Out of Food in the Last Year: Never true Ran Out of Food in the Last Year: Never true Family History Problem Relation Age of Onset Cancer Mother ovarian age 64 Cancer Father prostate age 73 CAD CABG 60's Heart disease Father Brain cancer Father Endocrine Disorder Brother High lipids. lives in [place], [place] Review of patient's allergies indicates: Allergen Reactions Lisinopril Cough documented in this encounter Nursing Notes * Rachel Mahajan LPN - 03/03/2024 11:49 AM EDT Chief Complaint Patient presents with Follow Up Here return pulm. Worsening cough. Per patient gotten a lot better since 03/01/24. MMRC Dyspnea Scale = 0 (I only get breathless with strenuous exercise) documented in this encounter Plan of Treatment Upcoming Encounters Date Type Department Care Team (Late st Contact Info) Description 03/04/2024 1:15 PM EDT Pharmacy Pharmacy Hematology Oncology [facility] [address] [place] [address] [facility] Hem/Onc [address] [place] [address] 03/10/2024 9:20 AM EDT Laboratory Laboratory [facility] [place] [address] [place] [id number] Rehana, Lab Scen[address] [facility] [place], [place] [address] 03/10/2024 10:30 AM EDT Hem/Onc Treatment Hematology/Oncology [facility] [place] [address] [place], [place] [phone] Rehana, Chair 4 Hem Onc [facility] [address] [place], [place] [address] 03/17/2024 9:00 AM EDT Office Visit Hematology/Oncology [facility] [place] [address] [place], [place] [phone] Amber Huizar CRNP [address] [facility] [place] [address] 07/20/2024 10:15 AM EDT Office Visit Dermatology [facility] [address] [place], [place] [address] Cal Jernigan MD [address] [facility] [place], [place] [address] 07/21/2024 1:45 PM EDT Office Visit Hematology/Oncology [facility] [address] [facility] [place], [place] [phone] Dakota Armando MD [address] [facility] [place], [place] [address] 07/24/2024 11:40 AM EDT Office Visit Family Practice [facility] [address] [address] Sergio Barriga MD [address] [place] [address] Scheduled Orders Name Type Priority Associated Diagnoses Orde r Schedule PET CT SKULL BASE TO MID-THIGH FDG Medical Imaging Routine 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) Multiple lung nodules Expected: 03/10/2024, Expires: 04/02/2025 Scheduled Procedures Name Priority Associated Diagnoses Date/Ti [...] this encounter Medical Devices Implanted Type Area Procurement Manager Device Identifier Shelf Expiration Date Model / Serial / Lot Duraclip 16mm Xlg Repostn - [id number] Implanted:Qty : 1 on 07/17/2021 by Guillermo Jones DO at [facility] [employer]ala[employer] [id number] 01/10/2024 [id number] / / [id number] Stent Viabil Biliary [id number] - [id number] Implanted:Qty : 1 on 07/17/2021 by Guillermo Jones DO at [facility] CustEx REYNALDO [id number] 03/04/2024 [id number] / [id number] / [id number] Port Implant W/8f Poly Cath - [id number] Implanted:Qty : 1 on 09/13/2023 by Gary Rodriguez DO at OR [facility] Right: Chest CR BARD : PERIPHERAL VASCULAR [id number] 04/24/2025 [id number] / / [id number] documented as of this encounter Visit Diagnoses Diagnosis 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)- Primary Malignant neoplasm of body of pancreas Multiple lung nodules Other nonspecific abnormal finding of lung field documented in this encounter Advance Directives Documents on File Type Date Recorded Patient Medical Scribe Expl anation Advance Directives and Living Will [...] Agen t (per Health Care Power of Tie Puller document) [email or web address] Temo Bela Sibling First Alternate Health Care Agent (per Health Care Power of Tie Puller document) Care Teams Treatment Plant Mechanic Relationship Specialty Start Date End Date Sergio Barriga MD [address] [place] [address] PCP - General Family Medicine 08/07/19 documented as of this encounter
--- OUTSIDE RECORDS SUMMARY | 2024-04-18 23:53 | External Medical Summary | Summary of Care ---
Author Name Unknown Organization [facility] [address] [facility] [facility] [address] Phone [phone] Care Team Providers Care Rack Cleaner Name Role Phone Sergio Barriga MD Primary Care Provider + Reason for Visit * Reason Onset Date Comments Precert Future 02/14/2024 Gemzar/Abraxane/ Lumakras Encounter Details Date Type Department Care Team (Late st Contact Info) Description 02/14/2024 Telephone Hematology/Oncology [facility] [place] [address] [place] [phone] Dakota Armando MD [address] [place] [address] Precert Future (Gemzar/Abraxane/Lumakr as) Allergies Active Allergy Reactions Criticality Noted Date Comments Lisinopril Cough Low 08/07/2019 documented as of this encounter (statuses as of 02/28/2024) Medications Medication Sig Dispensed Refills Start Date End Date Status Boost 100 Calorie Smart Oral Liquid Take by mouth. 0 Act miley Multi Vitamin Daily Oral Tablet Take by mouth. 0 Act miley Aspirin 81 MG Oral Tablet Delayed Release Take 1 Tablet by mouth in the morning. 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 FM ED-NFGB-RYCMO DIS NEC documented as of this encounter (statuses as of 02/28/2024) Immunizations Name Administration Dates Next Due COVID-19 mRNA, LNP-s, No Pre serve, 2-Dose Series (Swapsee) 01/13/2022,07/21/2021,02/01/2021,02/1 COVID-19, MRNA-LNP, 23-24, P F, 30 [...] Telephone Encounter - Courtney Plascencia RN - 02/28/2024 9:57 AM EDT Form completed and faxed back to [facility]. * Telephone Encounter - Jen Teixeira RPh - 02/24/2024 7:55 AM EDT Sotorasib Rx sent to [facility] who will help with financial assistance * Telephone Encounter - Karen Krens OSA - 02/19/2024 11:42 AM EDT Scheduled [...] plan built and routed. Will await referral. MT- FYI regarding new oral chemo plan for [...] Care Team (Late st Contact Info) Description 03/02/2024 1:15 PM EDT Pharmacy Pharmacy Hematology Oncology [facility] [place] [address] [place] [address] [facility] [place] [facility] Hem/Onc [address] [place] [address] 03/10/2024 9:20 AM EDT Laboratory Laboratory [facility] [place] [address] [place] [phone] Rehana, Lab [facility] [place] [address] [place] [place] [address] 03/10/2024 10:30 AM EDT Hem/Onc Treatment Hematology/Oncology Treatment, [place] [address] [place] [phone] Rehana, Chair 4 Hem Onc [facility] [address] [place] [address] [address] 03/17/2024 9:00 AM EDT Office Visit Hematology/Oncology [facility] [place] [address] [place] [phone] Amber Huizar CRNP [address] [place] [address] 07/20/2024 10:15 AM EDT Office Visit Dermatology [facility] [place] [address] [place] [address] Cal Jernigan MD [address] [place], [place] [address] 07/21/2024 1:45 PM EDT Office Visit Hematology/Oncology [facility] [place] [address] [place] [address] [phone] Dakota Armando MD [address] [place] [address] 07/24/2024 11:40 AM EDT Office Visit Family Practice [facility] [address] [place] [address] Sergio Barriga MD [address] [place] [address] Scheduled Orders Name Type Priority Associated Diagnoses [...] this encounter Medical Devices Implanted Type Area Stereo Equipment Salesperson Device Identifier Shelf Expiration Date Model / Serial / Lot Duraclip 16mm Xlg Repostn - [id number] Implanted:Qty : 1 on 07/17/2021 by Guillermo Jones DO [place] [facility] [place] [id number] 01/10/2024 [id number] / / [id number] Stent Viabil Biliary [id number] - [id number] Implanted:Qty : 1 on 07/17/2021 by Guillermo Jones DO [place] [facility] [place] [id number] 03/04/2024 [id number] / [id number] / [id number] Port Implant W/8f Poly Cath - [id number] Implanted:Qty : 1 on 09/13/2023 by Gary Rodriguez DO at OR [facility] Right: Chest CR BARD : PERIPHERAL VASCULAR [id number] 04/24/2025 [id number] / / [id number] documented as of this encounter Visit Diagnoses Diagnosis 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)- Primary Malignant neoplasm of body of pancreas documented in this encounter Advance Directives Documents on File Type Date Recorded Patient Systems Programmer Expl anation Advance Directives and Living Will [...] Agen t (per Health Care Power of Programs Manager document) [email or web address] Temo Cramer Sibling First Alternate Health Care Agent (per Health Care Power of Programs Manager document) Care Teams Rack Cleaner Relationship Specialty Start Date End Date Sergio Barriga MD [address] [place] [address] PCP - General Family Medicine 08/07/19 documented as of this encounter
--- OUTSIDE RECORDS SUMMARY | 2024-04-18 23:53 | External Medical Summary | Summary of Care ---
Author Name Unknown Organization [facility] Address [address] [place] [address] Phone [phone] Care Team Providers Care Egg Pasteurizer Name Role Phone Sergio Barriga MD Primary Care Provider + Encounter Details Date Type Department Care Team (Late st Contact Info) Description 03/08/2024 Orders Only Hematology/Oncology, [facility] [address] [place] [address] Lane Whelan MD [address] [place] [address] Allergies Active Allergy Reactions Criticality Noted Date Comments Lisinopril Cough Low 08/07/2019 documented as of this encounter (statuses as of 03/08/2024) Medications Medication Sig Dispensed Refills Start Date End Date Status Boost 100 Calorie Smart Oral Liquid Take by mouth. 0 Act miley Multi Vitamin Daily Oral Tablet Take by mouth. 0 Act miley Aspirin 81 MG Oral Tablet Delayed Release Take 1 Tablet by mouth in the morning. 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 04/10 colon-Dr Eller [facility] 2 polyps 1 tubular adenoma. Kevin 6y 2013 sleep study [facility] WNL [address] Elena [facility] Essential hypertension with goal blood pressure [...] as of this encounter (statuses as of 03/08/2024) Resolved Problems Problem Noted Date Diagnosed Date [...] WNL, antiphos lipids WNL Factor V+heteroqygous. FM AL-XXUT-BRSKL DIS NEC documented as of this encounter (statuses as of 03/08/2024) Immunizations Name Administration Dates Next Due COVID-19 mRNA, LNP-s, No Pre serve, 2-Dose Series (Bensata) 01/13/2022,07/21/2021,02/01/2021,01/04 COVID-19, MRNA-LNP, 23-24, P F, 30 MCG/0.3 mL, 12 YRS AND ABOVE, IM ([employer]) 09/12/2023 Covid-19, Mrna, Lnp-s, Pf, B ivalent, [...] Care Team (Late st Contact Info) Description 03/10/2024 9:20 AM EDT Laboratory Laboratory [facility] [place] [address] [place] [phone] Rehana Lab [place] [address] [address] [place] [facility] [place] [address] 03/10/2024 10:30 AM EDT Hem/Onc Treatment Hematology/Oncology Treatment [place] [address] [facility] [phone] Rehana, Chair 4 Hem Onc [facility] [address] [place] [address] 03/10/2024 1:15 PM EDT Pharmacy Pharmacy Hematology Oncology [facility] [address] [place] [address] [facility] [place] Hem/Onc [address] [place] [address] 03/17/2024 9:00 AM EDT Office Visit Hematology/Oncology [facility] [place] [address] [place] [phone] Amber Huizar CRNP [address] [place] [address] 07/20/2024 10:15 AM EDT Office Visit Dermatology [facility] [address] [facility] [place], [place] [address] Cal Jernigan MD [address] [facility] [place], [place] [address] 07/21/2024 1:45 PM EDT Office Visit Hematology/Oncology [facility] [address] [facility] [place], [place] [phone] Dakota Armando MD [address] [place] [address] 07/24/2024 11:40 AM EDT Office Visit Family Practice [facility] [address] [facility] [place] [address] Sergio Barriga MD [address] [facility] [place] [address] Scheduled Procedures Name Priority Associated Diagnoses Date/Ti [...] this encounter Medical Devices Implanted Type Area Spirits Model Device Identifier Shelf Expiration Date Model / Serial / Lot Duraclip 16mm Xlg Repostn - [id number] Implanted:Qty : 1 on 07/17/2021 by Guillermo Jones DO at [facility]OSCOPY [facility] [employer] [id number] 01/10/2024 [id number] / / [id number] Stent Viabil Biliary [id number] - [id number] Implanted:Qty : 1 on 07/17/2021 by Guillermo Jones DO at [facility]OSCOPY [facility] [employer] [id number] 03/04/2024 [id number] / [id number] / [id number] Port Implant W/8f Poly Cath - [id number] Implanted:Qty : 1 on 09/13/2023 by Gary Rodriguez DO at OR [facility] Right: Chest CR BARD : PERIPHERAL VASCULAR [id number] 04/24/2025 [id number] / / [id number] documented as of this encounter Advance Directives Documents on File Type Date Recorded Patient Boomswing Operator Expl anation Advance Directives and Living Will 10/23/2022 4:43 PM Virginie RoseibhartLlashaunWiyonas .PDF Latest Code Status on File Code Status Date Activated Date Inactivated Comments Full Code 07/16/2021 10:04 AM 07/18/2021 6:28 PM This order reflects the patients wishes and were consensually agreed upon. Healthcare Agents on File Name Relationship Healthcare Agent Relationship Communication Virginie Cramer Spouse Health Care Agen t (per Health Care Power of Senior Drafter document) @[email or web address] Temo Cramer Sibling First Alternate Health Care Agent (per Health Care Power of Senior Drafter document) [email or web address] Care Teams Egg Pasteurizer Relationship Specialty Start Date End Date Sergio Barriga MD [address] [place] [address] PCP - General Family Medicine 08/07/19 documented as of this encounter
--- OUTSIDE RECORDS SUMMARY | 2024-04-18 23:53 | External Medical Summary | Summary of Care ---
Author Name Unknown Organization [facility] Address [address] [place] [address] Phone [phone] Care Team Providers Care Summer Internship Name Role Phone Sergio Barriga MD Primary Care Provider + Encounter Details Date Type Department Care Team (Late st Contact Info) Description 02/18/2024 Telephone Hematology/Oncology [facility] [place] [address] [facility] [place] [phone] Dakota Armando MD [address] [facility] [place] [address] Allergies Active Allergy Reactions Criticality Noted Date Comments Lisinopril Cough Low 08/07/2019 documented as of this encounter (statuses as of 02/27/2024) Medications Medication Sig Dispensed Refills Start Date End Date Status Boost 100 Calorie Smart Oral Liquid Take by mouth. 0 Active Multi Vitamin Daily Oral Tablet Take by mouth. 0 Active Aspirin 81 MG Oral Tablet Delayed Release Take 1 Tablet by mouth in the morning. 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 04/10 colon-Dr Eller [facility] 2 polyps 1 tubular adenoma. Kevin 6y 2013 sleep study [facility] WNL [address] Elena [facility] Essential hypertension with goal blood [...] as of this encounter (statuses as of 02/27/2024) Resolved Problems Problem Noted Date Diagnosed Date [...] WNL, antiphos lipids WNL Factor V+heteroqygous. FM JZ-BYDO-MLMBC DIS NEC documented as of this encounter (statuses as of 02/27/2024) Immunizations Name Administration Dates Next Due COVID-19 mRNA, LNP-s, No Pre serve, 2-Dose Series (MAZ) 01/13/2022,07/21/2021,02/01/2021,12/26 COVID-19, MRNA-LNP, 23-24, P F, 30 [...] encounter Miscellaneous Notes * Telephone Encounter - Maeve Harris OSA - 02/27/2024 2:43 PM EDT Called [facility] to check on patient's medication. They were not able to locate patient in their system at this time. Message sent to Alyson Pandya to check status of assistance- she is waiting on form to be sent back frompatient;s provider that she sent on Saturday. Will follow up again on Saturday03/02/24 CHATO Sung Sew Out Operator Pharmacy Hematology Oncology Oral Chemotherapy Clinic Medication Therapy Disease Management [facility] 02/27/24 2:44 PM * Telephone Encounter - Jen Teixeira [facility] - 02/24/2024 12:52 PM EDT Sotorasib RX sent to [facility] Time Spent on Encounter: 6 - 10 [...] Type of assistance: Over income for pharmacy Vindi. Called [facility] and had Pt screened for assistance. Applications mailed: : YES, emailed to [email or web address] Follow up: 02/26/2024 Thank you, Shilpa Pandya Medication Finger Cobbler 02/24/2024, 10:45 AM * Telephone Encounter - Zaida Swift OSA - 02/18/2024 10:50 AM EDT [facility] Patient Assistance Request: Medication name: LUMAKRAS 120 MG TABS Insurance? medicare d Co-pay amount: [phone] Action needed: new funding inquiry Target ship date (if applicable): N/A IF HEM/ONC: Confirm this encounter is routed to [facility]: Yes All other department requests should be flagged in referral. Confirm encounter department selected is for prescribing physician: Yes If URGENT: Send TEAMS message to appropriate supervisor slashing department (see "Patient Assistance Guide" - ROUTING POOLS:[facility] on shared drive): [] Urgent message sent to: Thank you, CHATO Spear [facility] 02/18/2024,10:50 AM documented in this encounter Plan of Treatment Upcoming Encounters Date Type Department Care Team (Late st Contact Info) Description 03/10/2024 9:20 AM EDT Laboratory Laboratory [facility] Garcia [address] [place], [place] [phone] Renee Kimball [address] [place], [place] [address] 03/10/2024 10:30 AM EDT [facility] [address] [place] [phone] Rehana, Chair 4 Hem Onc [facility] [address] [facility] [place], [place] [address] 03/17/2024 9:00 AM EDT Office Visit Hematology/Oncology [facility] [address] [place], [place] [phone] Amber Huizar CRNP [address] [place] [address] 07/20/2024 10:15 AM EDT Office Visit Dermatology [facility] [address] [place] [address] Cal Jernigan MD [address] [facility] [place] [address] 07/21/2024 1:45 PM EDT Office Visit Hematology/Oncology [facility] [address] [facility] [place] [phone] Dakota Armando MD [address] [facility] [place] [address] 07/24/2024 11:40 AM EDT Office Visit Family Practice [facility] [address] [place] [address] Sergio Barriga MD [address] [place] [address] Scheduled Procedures Name Priority Associated Diagnoses Date/Ti [...] this encounter Medical Devices Implanted Type Area Imaging Nurse Device Identifier Shelf Expiration Date Model / Serial / Lot Duraclip 16mm Xlg Reposn - [id number] Implanted:Qty : 1 on 07/17/2021 by Guillermo Jones DO at [facility]OS[facility] [employer] [id number] 01/10/2024 [id number] / / [id number] Stent Viabil Biliary [id number] - [id number] Implanted:Qty : 1 on 07/17/2021 by Guillermo Jones DO at ENDOSCOPY [facility] [employer] [id number] 03/04/2024 [id number] / [id number] / [id number] Port Implant W/8f Poly Cath - [id number] Implanted:Qty : 1 on 09/13/2023 by Gary Rodriguez DO at OR [facility] Right: Chest CR BARD : PERIPHERAL VASCULAR [id number] 04/24/2025 [id number] / / [id number] documented as of this encounter Visit Diagnoses Diagnosis 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 Healthcare Agents on File Name Relationship Healthcare Agent Relationship Communication Virginie Cramer Spouse Health Care Agen t (per Health Care Power of Traffic Engineering Director document) [email or web address] Sibling First Alternate Health Care Agent (per Health Care Power of Traffic Engineering Director document) Care Teams Summer Internship Relationship Specialty Start Date End Date Sergio Barriga MD [address] [place] [address] PCP - General Family Medicine 08/07/19 documented as of this encounter
--- OUTSIDE RECORDS SUMMARY | 2024-04-18 23:53 | External Medical Summary | Summary of Care ---
Author Name Unknown Organization [facility] Address [address] [place] [address] Phone [phone] Care Team Providers Care Refractory Furnace Designer Name Role Phone Sergio Barriga MD Primary Care Provider + Reason for Visit * Reason Onset Date Comments Patient Assistance Program 02/18/2024 Encounter Details Date Type Department Care Team (Late st Contact Info) Description 02/18/2024 Telephone Hematology/Oncology [facility] Shaina Kimball [address] [facility] [place] [phone] Dakota Armando MD [address] [facility] [place] [address] Patient Assistance Program Allergies Active Allergy Reactions Criticality Noted Date Comments Lisinopril Cough Low 08/07/2019 documented as of this encounter (statuses as of 03/06/2024) Medications Medication Sig Dispensed Refills Start Date End Date Status Boost 100 Calorie Smart Oral Liquid Take by mouth. 0 Active Multi Vitamin Daily Oral Tablet Take by mouth. 0 Active Aspirin 81 MG Oral Tablet Delayed Release Take 1 Tablet by mouth in the morning. 0 Active Pancrelipase (Fcf-Coyz-Njao) 93524-56599 UNIT Oral Capsule Delayed Release Particles (Creon 18970) 2 cap with meals, 1 with larger [...] as of this encounter (statuses as of 03/06/2024) Active Problems Problem Noted Date Diagnosed Date Malignant neoplasm of body of pancreas 3 Metastasis to liver 08/30/2023 Encounter for antineoplastic chemotherapy 2022 History of carcinoma of pancreas 07/18/2023 Post-viral cough syndrome 07/09/2023 Upper airway cough syndrome 07/09/2023 History of 2019 novel coronavirus disease (COVID -19) 10/16/2022 Coronary artery disease invo lving [place] coronary artery of [place] heart without angina pectoris 08/20/2022 Overview: Severe [...] lipids WNL Factor V+heteroqygous. 04/10 colon-Dr Eller [facility] 2 polyps 1 tubular adenoma. Kevin 5y 2013 sleep study [facility] WNL [address] Elena [facility] [...] as of this encounter (statuses as of 03/06/2024) Resolved Problems Problem Noted Date Diagnosed Date [...] WNL, antiphos lipids WNL Factor V+heteroqygous. FM YF-ZVSA-AHOSE DIS NEC documented as of this encounter (statuses as of 03/06/2024) Immunizations Name Administration Dates Next Due COVID-19 mRNA, LNP-s, No Pre serve, 2-Dose Series (L[employer]) 01/13/2022,07/21/2021,02/01/2021,12/26 COVID-19, MRNA-LNP, 23-24, P F, 30 MCG/0.3 mL, 12 YRS AND ABOVE, IM (Mintera-Comirnat) 09/12/2023 Covid-19, Mrna, Lnp-s, Pf, B ivalent, [...] fax will be sent to CHATO Burgos Senior Insight Manager International Pharmacy Hematology Oncology Oral Chemotherapy [facility] Medication Therapy Disease Management [facility] 03/06/24 1:17 PM Time Spent on Encounter: 6 - 10 minutes * Telephone Encounter - Shilpa Pandya OSA - 03/03/2024 9:51 AM EDT Patient Assistance Name of Medication: Sotorasib 120 MG Oral Tablet (Lumakras) Was patient spoken to: : YES. I spoke with international representative at [facility] and they have received all required documents. Called Rafael and let him know same. Type of assistance: [employer] Applications mailed: : YES Follow up: 03/05/2024 Thank you, Shilpa Pandya Medication Guide Dog Instructor 03/03/2024, 9:51 AM * Telephone Encounter - Shilpa Pandya OSA - 02/28/2024 10:01 AM EDT Patient Assistance Name of Medication: Sotorasib 120 MG Oral Tablet (Lumakras) Was patient spoken to: : NO. Faxed over rubberit, medicare card, and approval letter for Lumakras to [employer]. Type of assistance: Consulting Group Analyst Applications mailed: : YES Follow up: 03/03/2024 Thank you, Shilpa Pandya Medication Guide Dog Instructor 02/28/2024, 10:01 AM * Telephone Encounter - [...] follow up again on Saturday03/02/24 CHATO Sung Senior Insight Manager International Pharmacy Hematology Oncology Oral Chemotherapy Clinic Medication Therapy Disease Management [facility] 02/27/24 2:44 PM * Telephone Encounter - Jen Teixeira [facility] - 02/24/2024 12:52 PM EDT Sotorasib RX sent to [email or web address] Time Spent on Encounter: 6 - 10 [...] Type of assistance: Over income for pharmacy tagUin. Called [employer] and had Pt screened for assistance. Applications mailed: : YES, emailed to [email or web address] Follow up: 02/26/2024 Thank you, Shilpa Pandya Medication Guide Dog Instructor 02/24/2024, 10:45 AM * Telephone Encounter - Zaida Swift OSA - 02/18/2024 10:50 AM EDT [facility] Patient Assistance Request: Medication name: LUMAKRAS 120 MG TABS Insurance? medicare d Co-pay amount: [phone] Action needed: new funding inquiry Target ship date (if applicable): N/A IF HEM/ONC: Confirm this encounter is routed to [facility]: Yes All other department requests should be flagged in referral. Confirm encounter department selected is for prescribing physician: Yes If URGENT: Send TEAMS message to appropriate geography department chair (see "Patient Assistance Guide" - ROUTING POOLS:GSP on shared drive): [] Urgent message sent to: Thank you, CHATO Spear [facility] 02/18/2024,10:50 AM documented in this encounter Plan of Treatment Upcoming Encounters Date Type Department Care Team (Late st Contact Info) Description 03/10/2024 9:20 AM EDT Laboratory Laboratory [facility] [place] [address] [place] [phone] Renee Kimball [address] [place], [place] [address] 03/10/2024 10:30 AM EDT [facility] [address] [place] [phone] Rehana, Chair 4 Hem Onc [facility] [address] [facility] [place] [address] 03/17/2024 9:00 AM EDT Office Visit Hematology/Oncology [facility] [place] [address] [facility] [place], [place] [phone] Amber Huizar CRNP [address] [place] [address] 07/20/2024 10:15 AM EDT Office Visit Dermatology [facility] [address] [facility] [place] [address] Cal Jernigan MD [address] [facility] [place], [place] [address] 07/21/2024 1:45 PM EDT Office Visit Hematology/Oncology [facility] [address] [facility] [place], [place] [address] Dakota Armando MD [address] [facility] [place], [place] [address] 07/24/2024 11:40 AM EDT Office Visit Family Practice [facility] [address] [place] [address] Sergio Barriga MD [address] [place] [address] Scheduled Procedures Name Priority Associated Diagnoses Date/Ti [...] this encounter Medical Devices Implanted Type Area Consulting Group Analyst Device Identifier Shelf Expiration Date Model / Serial / Lot Duraclip 16mm Xlg [facility] - [id number] Implanted:Qty : 1 on 07/17/2021 by Guillermo Jones DO at ENDOSCOPY [facility] [place] [employer] REYNALDO [id number] 01/10/2024 [id number] / / [id number] Stent Viabil Biliary [id number] - [id number] Implanted:Qty : 1 on 07/17/2021 by Guillermo Jones DO at ENDOSCOPY [facility] [place] [employer] RE[employer] [id number] 03/04/2024 [id number] / [id number] / [id number] Port Implant W/8f Poly Cath - [id number] Implanted:Qty : 1 on 09/13/2023 by Gary Rodriguez DO at OR [facility] Right: Chest CR BARD : PERIPHERAL VASCULAR [id number] 04/24/2025 [id number] / / [id number] documented as of this encounter Visit Diagnoses Diagnosis 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)- Primary Malignant 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
--- OUTSIDE RECORDS SUMMARY | 2024-04-18 23:53 | External Medical Summary | Summary of Care ---
Author Name Unknown Organization [facility] Address [address] [place] [address] Phone [phone] Care Team Providers Care Utility Operator Name Role Phone Sergio Barriga MD Primary Care Provider + Reason for Visit * Reason Onset Date Comments Patient Assistance Program 02/18/2024 Encounter Details Date Type Department Care Team (Late st Contact Info) Description 02/18/2024 Telephone Hematology/Oncology [facility] Shaina Kimball [address] [facility] [place] [phone] Dakota Armando MD [address] [facility] [place] [address] Patient Assistance Program Allergies Active Allergy Reactions [...] mouth in the morning. 0 Active Pancrelipase (Hki-Mysu-Sigh) 29545-[address] UNIT Oral Capsule Delayed Release Particles (Creon 62741) 2 cap with meals, 1 with larger [...] -19) 10/16/2022 Coronary artery disease invo lving [place]zan[place] coronary artery of [place] heart without angina pectoris 08/20/2022 Overview: Severe [...] WNL Factor V+heteroqygous. 04/10 colon-Dr Eller [facility] 2 polyps 1 tubular adenoma. Kevin 6y 2013 sleep study [facility] WNL [address] Elena [facility] Essential hypertension with goal blood [...] WNL, antiphos lipids WNL Factor V+heteroqygous. FM SW-QVWB-NGLAA DIS NEC documented as of this encounter (statuses as of 02/28/2024) Immunizations Name Administration Dates Next Due COVID-19 mRNA, LNP-s, No Pre serve, 2-Dose Series (Kymab) 01/13/2022,07/21/2021,02/01/2021,12/26 COVID-19, MRNA-LNP, 23-24, P F, 30 MCG/0.3 mL, 12 YRS AND ABOVE, IM ([employer]-Comirnat) 09/12/2023 Covid-19, Mrna, Lnp-s, Pf, B ivalent, [...] patient spoken to: : NO. Faxed over flikdate, medicare card, and approval letter for Lumakras to [employer]. Type of assistance: Psychology Physician Applications mailed: : YES Follow up: 03/03/2024 Thank you, Shilpa Pandya Medication Cargo Bracer 02/28/2024, 10:01 AM * Telephone Encounter - [...] follow up again on Saturday03/02/24 CHATO Sung Blend Plant Operator Pharmacy Hematology Oncology Oral Chemotherapy Clinic Medication Therapy Disease Management [facility] 02/27/24 2:44 PM * Telephone Encounter - Jen Teixeira RPh - 02/24/2024 12:52 PM EDT Sotorasib RX sent to [employer] Time Spent on Encounter: 6 - 10 [...] assistance: Over income for pharmacy reji. Called [employer] and had Pt screened for assistance. Applications mailed: : YES, emailed to [email or web address] Follow up: 02/26/2024 Thank you, Shilpa Pandya Medication Cargo Bracer 02/24/2024, 10:45 AM * Telephone Encounter - Zaida Swift OSA - 02/18/2024 10:50 AM EDT [facility] Patient Assistance Request: Medication name: LUMAKRAS 120 MG TABS Insurance? medicare d Co-pay amount: [phone] Action needed: new funding inquiry Target ship date (if applicable): N/A IF HEM/ONC: Confirm this encounter is routed to [id number]: Yes All other department requests should be flagged in referral. Confirm encounter department selected is for prescribing physician: Yes If URGENT: Send TEAMS message to appropriate winding department supervisor (see "Patient Assistance Guide" - ROUTING POOLS:GSP on shared drive): [] Urgent message sent to: Thank you, CHATO Spear [facility] 02/18/2024,10:50 AM documented in this encounter Plan of Treatment Upcoming Encounters Date Type Department Care Team (Late st Contact Info) Description 03/02/2024 1:15 PM EDT Pharmacy Pharmacy Hematology Oncology [facility] [address] [place] [address] [facility] Hem/Onc [address] [place] [address] 03/10/2024 9:20 AM EDT Laboratory Laboratory [facility] [address] [place] [phone] Rehana, Lab [address] [place] [address] 03/10/2024 10:30 AM EDT Hem/Onc Treatment Hematology/Oncology Treatment, [address] [place] [phone] Rehana, Chair 4 Hem Onc [address] [place] [address] 03/17/2024 9:00 AM EDT Office Visit Hematology/Oncology [facility] [address] [place] [phone] Amber Huizar CRNP [address] [facility] [place] [address] 07/20/2024 10:15 AM EDT Office Visit Dermatology [facility] [address] [place] [address] Cal Jernigan MD 200 [facility] [place] [address] 07/21/2024 1:45 PM EDT Office Visit Hematology/Oncology [facility] [address] [facility] [place] [phone] Dakota Armando MD 200 [facility] [place], [place] [address] 07/24/2024 11:40 AM EDT Office Visit Family Practice [facility] [address] [place] [address] Sergio Barriga MD [address] [place] [address] Scheduled Procedures Name Priority Associated Diagnoses Date/Ti [...] this encounter Medical Devices Implanted Type Area Psychology Physician Device Identifier Shelf Expiration Date Model / Serial / Lot Duraclip 16mm Xlg Repostn - [id number] Implanted:Qty : 1 on 07/17/2021 [place]illermo [place] [facility] [place] [employer] REY[place]LDO [id number] 01/10/2024 [id number] / / [id number] Stent Viabil Biliary [id number] - [id number] Implanted:Qty : 1 on 07/17/2021 by Guillermo Jones DO [place] [facility] [place] [employer] [id number] 03/04/2024 [id number] / [id number] / [id number] Port Implant W/8f Poly Cath - [id number] Implanted:Qty : 1 on 09/13/2023 by Gary Rodriguez DO at OR [facility] Right: Chest CR BARD : PERIPHERAL VASCULAR [id number] 04/24/2025 [id number] / / [id number] documented as of this encounter Visit Diagnoses Diagnosis 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)- Primary Malignant 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
--- OUTSIDE RECORDS SUMMARY | 2024-04-18 23:53 | External Medical Summary ---
Author Name Unknown Address Unknown Organization K09:[facility] [place] [address] Laboratory Report Ordering Provider Test Date Status JOSE ROY 03/10/2024 09:26:34 Final Observation Date Value Abnormality Reference (Units ) Status WBC, Total 03/10/2024 09:26:34 6.54 4.00-10.8 0 (K/uL) Final RBC 03/10/2024 09:26:34 3.87 4.50-5.25 (M/uL) Final Hemoglobin 03/10/2024 09:26:34 11.4 Below low normal 14 .0-16.8 (g/dL) Final HCT 03/10/2024 09:26:34 36.4 Below low normal 40. 0-48.4 (%) Final MCV 03/10/2024 09:26:34 94.1 82.0-99.5 (fL) Final MCH 03/10/2024 09:26:34 29.5 27.0-34.0 (pg) Final MCHC 03/10/2024 09:26:34 31.3 32.0-36.0 (g/dL) Final RDW 03/10/2024 09:26:34 19.3 11.5-15.5 (%) Final Platelets 03/10/2024 09:26:34 249 140-400 (K /uL) Final MPV 03/10/2024 09:26:34 8.7 6.6-11.1 ( fL) Final Performing Location [facility] [place] [address]
--- OUTSIDE RECORDS SUMMARY | 2024-04-18 23:53 | External Medical Summary | Summary of Care ---
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) Procedures HI PACLITAXEL PROTEIN BOUND HI IN GEMCITABINE HCL NOS 200MG Dakota Armando MD 200 [facility] [place] [address] Anc Hem/Onc [address] [address] Referral ID Status Reason Start Date Expiration Date V isits Requested Visits Authorized [id number] Authorized 02/14/2024 11/24/[phone] Encounter Details Date Type Department Care Team (Latest Contact Info) Description 03/10/2024 10:30 AM EDT Hem/Onc Treatment Hematology/Oncolog y Treatment, [address] [phone] Rehana Chair 4 Hem Onc [address] [place] [address] Encounter for antineoplastic chemotherapy*; 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 0 Act miley Multi Vitamin Daily Oral Tablet Take by mouth. 0 Act miley Aspirin 81 MG Oral Tablet Delayed Release Take 1 Tablet by mouth in the morning. 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 04/10 colon-Dr Case [facility] 2 polyps 1 tubular adenoma. Kevin 6y 2013 sleep study [facility] WNL [address] Elena [facility] [...] as of this encounter (statuses as of 03/10/2024) Resolved Problems Problem Noted Date Diagnosed Date [...] WNL, antiphos lipids WNL Factor V+heteroqygous. FM RJ-TYCI-UTGEP DIS NEC documented as of this encounter (statuses as of 03/10/2024) Immunizations Name Administration Dates Next Due COVID-19 mRNA, LNP-s, No Pre serve, 2-Dose Series (Sentrigo) 01/13/2022,07/21/2021,02/01/2021,01/04 COVID-19, MRNA-LNP, 23-24, P F, 30 MCG/0.3 mL, 12 YRS AND ABOVE, IM ([facility]) 09/12/2023 Covid-19, Mrna, Lnp-s, Pf, B ivalent, 30 Mcg, IM, 12 yrs and above (Sentrigo) 08/16/2022 HEP A - Hepatitis A (Adult [...] 9:45 AM EDT Pharmacy Pharmacy Hematology Oncology [address] [address] [facility] Clinic Hem/Onc [address] [place] [address] 03/17/2024 9:00 AM EDT Office Visit Hematology/Oncology [facility] [address] [place] [phone] Amber Huizar CRNP [address] [place] [address] 03/24/2024 9:20 AM EDT Laboratory Laboratory [facility] Rehana [place] [address] [phone] Rehana, Lab [place] [address] [address] [address] 03/24/2024 10:15 AM EDT Hem/Onc Treatment Hematology/Oncology Treatment, [place] [address] [facility] [address] [address] [place] [address] Rehana, Chair 5 Hem Onc [place] [address] [place] [address] 07/20/2024 10:15 AM EDT Office Visit Dermatology [facility] [place] [address] [place] [address] Cal Jernigan MD 200 [facility] [place] [address] 07/21/2024 1:45 PM EDT Office Visit Hematology/Oncology [facility] [address] [facility] [place] [phone] Dakota Armando MD [address] [facility] [place], [place] [address] 07/24/2024 11:40 AM EDT Office Visit Family Practice [facility] [address] [place] [address] Sergio Barriga MD [address] [place] [address] Scheduled Procedures Name Priority Associated Diagnoses Date/Ti [...] this encounter Medical Devices Implanted Type Area Crib Pad Maker Device Identifier Shelf Expiration Date Model / Serial / Lot Duraclip 16mm Xlg Repostn - [id number] Implanted:Qty : 1 on 07/17/2021 by Guillermo Jones DO at [place] [facility] [place] [employer] REYNALDO [id number] 01/10/2024 [id number] / / [id number] Stent Viabil Biliary [id number] - [id number] Implanted:Qty : 1 on 07/17/2021 by Guillermo Jones DO at [facility]OS[place] [facility] [place] [employer] [place]YNALDO [id number] 03/04/2024 [id number] / [id number] / [id number] Port Implant W/8f Poly Cath - [id number] Implanted:Qty : 1 on 09/13/2023 by Gary Rodriguez DO at OR [facility] Right: Chest CR BARD : PERIPHERAL VASCULAR [id number] 04/24/2025 [id number] / / [id number] documented as of this encounter Visit Diagnoses [...] ONCE PRN Other, Hypersensitivity Reaction, Starting on Sat03/10/24 at 1101, Until Sat03/11/24 at 1100, For 24 hours EPINEPHrine 1 MG/ML inj 0.3 mg 0.3 mg, Intramuscular, ONCE PRN Other, Hypersensitivity Reaction or Anaphylaxis, Starting on Sat03/10/24 at 1101, Until Sat03/11/24 at 1100, For 24 hours hEParin 100 UNIT/ML Lock Flush inj 500 Units 500 Units (5 mL), IV Lock, PRN Other, IV Flush, Starting on Sat03/10/24 at 1101, Until Sat03/11/24 at 1100, For 24 hours, Do not flush if lock, PICC, or central line not in place; IV infusing or unable to flush. Given 03/10/2024 1:07 PM EDT 500 Units Hydrocortisone Sod Suc (PF) (Solu-Cortef) inj 100 mg 100 mg, IV Push, ONCE PRN Other, Hypersensitivity Reaction, Starting on Sat03/10/24 at 1101, Until Sat03/11/24 at 1100, For 24 hours LORAzepam (Ativan) tab 0.5 mg 0.5 mg, Oral, ONCE PRN Anxiety, Nausea, Starting on Sat03/10/24 at 1215, Until Discontinued NSS infusion Intravenous, at 50 mL/hr, PRN, Starting on Sat03/10/24 at 1215, Until Discontinued, Maintenance line Start Infusion 03/10/2024 11:10 AM EDT 50 mL/hr oxygen GAS Inhalation, OXYGEN, First dose on Sat03/10/24 at 1145, Until Discontinued, Device/Managed by: Low Flow Device, [...] Flush, Starting on Sat03/10/24 at 1101, Until Sat03/11/24 at 1100, For 24 hours, Do not flush if lock, PICC, or central line not in place; IV infusing or unable to flush. Given 03/10/2024 1:07 PM EDT 10 mL Inactive Administered Medications [...] 12:33 PM EDT 1,800 mg 500 mL/hr ondansetron (Zofran) tab 8 mg 8 [...] 11:51 AM EDT 200 mg 80 mL/hr documented in this encounter Advance Directives Documents on File Type Date Recorded Patient Wrapper Hand Expl anation Advance Directives and Living Will [...] Agen t (per Health Care Power of Client Technical Support Associate document) [email or web address] Cramer Sibling First Alternate Health Care Agent (per Health Care Power of Client Technical Support Associate document) [email or web address] Care Teams Core Fitter Relationship Specialty Start Date End Date Sergio Barriga MD [address] [place] [address] PCP - General Family Medicine 08/07/19 documented as of this encounter
--- OUTSIDE RECORDS SUMMARY | 2024-04-18 23:53 | External Medical Summary | Summary of Care ---
Author Name Unknown Organization [facility] Address [address] [facility] [address] Phone [phone] Care Team Providers Care Ball Warper Tender Name Role Phone Sergio Barriga MD Primary Care Provider + Reason for Visit * Reason Onset Date Comments Precert Future 02/14/2024 Gemzar/Abraxane/ Lumakras Encounter Details Date Type Department Care Team (Late st Contact Info) Description 02/14/2024 Telephone Hematology/Oncology [facility] [place] [address] [place] [phone] Dakota Armando MD [address] [place] [address] Precert Future (Gemzar/Abraxane/Lumakr as) Allergies Active Allergy Reactions Criticality Noted Date Comments Lisinopril Cough Low 08/07/2019 documented as of this encounter (statuses as of 03/09/2024) Medications Medication Sig Dispensed Refills Start Date End Date Status Boost 100 Calorie Smart Oral Liquid Take by mouth. 0 Act miley Multi Vitamin Daily Oral Tablet Take by mouth. 0 Act miley Aspirin 81 MG Oral Tablet Delayed Release Take 1 Tablet by mouth in the morning. 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 FM UP-JZMA-IKDSI DIS NEC documented as of this encounter (statuses as of 03/09/2024) Immunizations Name Administration Dates Next Due COVID-19 mRNA, LNP-s, No Pre serve, 2-Dose Series ([employer]) 01/13/2022,07/21/2021,02/01/2021,02/1 COVID-19, MRNA-LNP, 23-24, P F, 30 [...] encounter Miscellaneous Notes * Telephone Encounter - Juan Smith RN - 03/09/2024 2:02 PM EDT [facility] Note 03/06- Assistance is still being reviewed. * Telephone Encounter - Courtney Plascencia RN - 03/04/2024 12:18 PM EDT [facility] note from 03/03- they confirmed that [employer] had all required documented for assistance, they updated patient on this. * Telephone Encounter - Courtney Plascencia RN - 02/28/2024 9:57 AM EDT Form completed and faxed back to [facility]. * Telephone Encounter - Jen Teixeira RPh - 02/24/2024 7:55 AM EDT Sotorasib Rx sent to [facility] who will help with financial assistance * Telephone Encounter - Karen Kerns OSA - 02/19/2024 11:42 AM EDT Scheduled pt and called left detailed message regarding * Telephone Encounter - Juan Smith RN - 02/19/2024 10:18 AM EDT Patient education completed. Consent signed today for all treatment. [facility]- [facility] regarding auth approval for [facility]- awaiting PFC review and copay assistance. Scheduling- [...] Description 03/10/2024 9:20 AM EDT Laboratory Laboratory [facility] [place] [address] [place] [phone] Re[place], Lab [address] [place] [address] 03/10/2024 10:30 AM EDT Hem/Onc Treatment Hematology/Oncology Treatment, [place] [address] [facility] [place] [phone] Rehana, Chair 4 Hem Onc [address] [place] [address] 03/10/2024 1:15 PM EDT Pharmacy Pharmacy Hematology Oncology [facility] [address] [place] [address] [facility], [facility] Hem/Onc [address] [place] [address] 03/17/2024 9:00 AM EDT Office Visit Hematology/Oncology [facility] [place] [address] [place] [phone] Amber Huizar CRNP [address] [place] [address] 07/20/2024 10:15 AM EDT Office Visit Dermatology [facility] 200 [facility] [place] [address] Cal Jernigan MD 200 [facility] [place], [place] [address] 07/21/2024 1:45 PM EDT Office Visit Hematology/Oncology [facility] 200 [facility] [place], [place] [phone] Dakota Armando MD 200 [facility] [place], [place] [address] 07/24/2024 11:40 AM EDT Office Visit Family Practice [facility] [address] [facility] [address] Sergio Barriga MD [address] [facility] [place] [address] Scheduled Orders Name Type Priority Associated Diagnoses [...] this encounter Medical Devices Implanted Type Area Sales Agent Casualty Insurance Device Identifier Shelf Expiration Date Model / Serial / Lot Duraclip 16mm Xlg Repostn - [id number] Implanted:Qty : 1 on 07/17/2021 by Guillermo Jones DO at ENDOSCOPY [facility] [employer] [id number] 01/10/2024 [id number] / / [id number] Stent Viabil Biliary [id number] - [id number] Implanted:Qty : 1 on 07/17/2021 by Guillermo Jones DO at ENDOSCOPY [facility] [employer] REYNALDO [id number] 03/04/2024 [id number] / [id number] / [id number] Port Implant W/8f Poly Cath - [id number] Implanted:Qty : 1 on 09/13/2023 by Gary Rodriguez DO at OR [facility] Right: Chest CR BARD : PERIPHERAL VASCULAR [id number] 04/24/2025 [id number] / / [id number] documented as of this encounter Visit Diagnoses Diagnosis 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)- Primary Malignant neoplasm of body of pancreas documented in this encounter Advance Directives Documents on File Type Date Recorded Patient Rn Cardiovascular Icu Expl anation Advance Directives and Living Will [...] Agen t (per Health Care Power of Communications Supervisor document) [email or web address] Temo Cramer Sibling First Alternate Health Care Agent (per Health Care Power of Communications Supervisor document) [email or web address] Care Teams Ball Warper Tender Relationship Specialty Start Date End Date Sergio Barriga MD [address] [place] [address] PCP - General Family Medicine 08/07/19 documented as of this encounter
--- OUTSIDE RECORDS SUMMARY | 2024-04-18 23:53 | External Medical Summary | Summary of Care ---
Author Name Unknown Organization [facility] Address [address] [place] [address] Phone [phone] Care Team Providers Care Wheat Combine Driver Name Role Phone Sergio Barriga MD Primary Care Provider + Reason for Visit * Reason Comments Outpatient Testing Encounter Details Date Type Department Care Team (Late st Contact Info) Description 03/10/2024 9:20 AM EDT Laboratory Laboratory [facility] [place] [address] [place] [phone] [place], Lab Scenery [address] [place] [address] 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) [...] mouth in the morning. 0 Active Pancrelipase (Dyw-Kjta-Kvaf) 42172-79787 UNIT Oral Capsule Delayed Release Particles (Creon 42040) 2 cap with meals, 1 with larger [...] -19) 10/16/2022 Coronary artery disease invo lving [place] coronary artery of [place] heart without angina pectoris 08/20/2022 Overview: Severe [...] lipids WNL Factor V+heteroqygous. 04/10 colon-Dr Case [facility] 2 polyps 1 tubular adenoma. Kevin 5y 2013 sleep study [facility] WNL [address] Elena [facility] Essential hypertension with goal [...] WNL, antiphos lipids WNL Factor V+heteroqygous. FM AG-BRPD-TDCIV DIS NEC documented as of this encounter (statuses as of 03/10/2024) Immunizations Name Administration Dates Next Due COVID-19 mRNA, LNP-s, No Pre serve, 2-Dose Series ([employer]) 01/13/2022,07/21/2021,02/01/2021,01/04 COVID-19, MRNA-LNP, 23-24, P F, 30 MCG/0.3 mL, 12 YRS AND ABOVE, IM ([facility]) 09/12/2023 Covid-19, Mrna, Lnp-s, Pf, B ivalent, [...] Team (Late st Contact Info) Description 03/10/2024 10:30 AM EDT Hem/Onc Treatment Hematology/Oncology [facility], [place] [address] [facility] [phone] [place], Chair [address] Hem On[address] [place] [address] Arrived 03/10/2024 1:15 PM EDT Pharmacy Pharmacy Hematology Oncology [facility] [address] [place] [address] [facility], [facility] Hem/Onc [address] [place] [address] 03/17/2024 9:00 AM EDT Office Visit Hematology/Oncology [facility] [address] [place] [address] Amber Huizar CRNP [address] [place] [address] 07/20/2024 10:15 AM EDT Office Visit Dermatology [facility] [place] 200 [facility] [place] [address] Cal Jernigan MD 200 [facility] [place] [address] 07/21/2024 1:45 PM EDT Office Visit Hematology/Oncology [facility] [place] 200 [facility] [place] [phone] Dakota Armando MD 200 [facility] [place] [address] 07/24/2024 11:40 AM EDT Office Visit Family Practice [facility] [address] [place] [address] Sergio Barriga MD [address] [place] [address] Pending Results Name Type Priority Associated Diagnoses Date /Time COMPREHENSIVE METABOLIC PANEL Lab STAT 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) 03/10/2024 9:26 AM EDT Scheduled Procedures Name Priority Associated [...] this encounter Medical Devices Implanted Type Area Receptionist Scheduler Device Identifier Shelf Expiration Date Model / Serial / Lot Duraclip 16mm Xlg Repostn - [id number] Implanted:Qty : 1 on 07/17/2021 by Guillermo Jones DO at [facility] [facility] [employer] REYNALDO [id number] 01/10/2024 [id number] / / [id number] Stent Viabil Biliary [id number] - [id number] Implanted:Qty : 1 on 07/17/2021 by Guillermo Jones DO at [facility]COPY [facility] [employer] REYNALDO [id number] 03/04/2024 [id number] / [id number] / [id number] Port Implant W/8f Poly Cath - [id number] Implanted:Qty : 1 on 09/13/2023 by Gary Rodriguez DO at OR [facility] Right: Chest CR BARD : PERIPHERAL VASCULAR [id number] 04/24/2025 [id number] / / [id number] documented as of this encounter Procedures Procedure Name Priority Date/Time Associated Diagnosis Comments DIFFERENTIAL, AUTOMATED STAT 03/10/2024 9:26 AM EDT 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) CBC STAT 03/10/2024 9:26 AM EDT 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) CBC STAT 03/10/2024 9:26 AM EDT 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) documented in this encounter Results * (ABNORMAL) DIFFERENTIAL, AUTOMATED (03/10/2024 9:26 AM EDT) WBC 6.54 4.00 - 10.80 K/uL 03/10/2024 9:37 AM EDT [facility] 56 Neutrophils % 61.9 40.0 - 75.0 % 03/10/2024 9:37 AM EDT [facility] 56- Lymphocytes % 17.4(L) 18.0 - 42.0 % 03/10/2024 9:37 AM EDT [facility] 56 Monocytes % 11.8(H) 1.0 - 11.0 % 03/10/2024 9:37 AM EDT [facility] 56 Eosinophils % 8.3(H) 0.0 - 6.0 % 03/10/2024 9:37 AM EDT [facility] 56 Basophils % 0.6 0.0 - 2.0 % 03/10/2024 9:37 AM EDT [facility] 56 Absolute Neutrophils 4.05 1.80 - 7.70 K/uL 03/10/2024 9:37 AM EDT [facility] 56 Absolute Lymphocytes 1.14 1.00 - 4.80 K/ul 03/10/2024 9:37 AM EDT [facility] 56 Absolute Monocytes 0.77 0.00 - 1.10 K/uL 03/10/2024 9:37 AM EDT [facility] 56 Absolute Eosinophils 0.54 0.00 - 0.70 K/uL 03/10/2024 9:37 AM EDT [facility] Absolute Basophils 0.04 0.00 - 0.20 K/uL 03/10/2024 9:37 AM EDT [facility] Blood Venous blood specimen / Unknown Venipuncture / Unknown 03/10/2024 9:26 AM EDT 03/10/2024 9:26 AM EDT Dakota Armando MD LAB BLOOD ORDERABLES [facility] [address] [place] [address] * (ABNORMAL) CBC (03/10/2024 9:26 AM EDT) WBC 6.54 4.00 - 10.80 K/uL 03/10/2024 9:37 AM EDT [facility] 56 RBC 3.87 4.50 - 5.25 M/uL 03/10/2024 9:37 AM EDT [address] HGB 11.4(L) 14.0 - 16.8 g/dL 03/10/2024 9:37 AM EDT [facility] 56 HCT 36.4(L) 40.0 - 48.4 % 03/10/2024 9:37 AM EDT [address] MCV 94.1 82.0 - 99.5 fL 03/10/2024 9:37 AM EDT [address] MCH 29.5 27.0 - 34.0 pg 03/10/2024 9:37 AM EDT [address] MCHC 31.3 32.0 - 36.0 g/dL 03/10/2024 9:37 AM EDT [address] RDW 19.3 11.5 - 15.5 % 03/10/2024 9:37 AM EDT [address] PLT 249 140 - 400 K/uL 03/10/2024 9:37 AM EDT [address] MPV 8.7 6.6 - 11.1 fL 03/10/2024 9:37 AM EDT [address] Blood Venous blood specimen / Unknown Venipuncture / Unknown 03/10/2024 9:26 AM EDT 03/10/2024 9:26 AM EDT Dakota Armando MD LAB BLOOD ORDERABLES [address] [place] [address] documented in this encounter Visit Diagnoses Diagnosis 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) Malignant neoplasm of body of pancreas documented in this encounter Advance Directives Documents on File Type Date Recorded Patient Pediatric Speech Therapist Expl anation Advance Directives and Living Will [...] Agen t (per Health Care Power of Safety Engineer document) [email or web address] Temo Cramer Sibling First Alternate Health Care Agent (per Health Care Power of Safety Engineer document) Care Teams Wheat Combine Driver Relationship Specialty Start Date End Date Sergio Barriga MD [address] [place] [address] PCP - General Family Medicine 08/07/19 documented as of this encounter
--- OUTSIDE RECORDS SUMMARY | 2024-04-18 23:53 | External Medical Summary | Summary of Care ---
Author Name Unknown Organization [facility] Address [address] [place] [address] Phone [phone] Care Team Providers Care Personal Protection Specialist Name Role Phone Sergio Barriga MD Primary Care Provider + Reason for Visit * Reason Onset Date Comments Patient Assistance Program 02/18/2024 Encounter Details Date Type Department Care Team (Late st Contact Info) Description 02/18/2024 Telephone Hematology/Oncology [facility] [place] 200 [facility] [place] [phone] Dakota Armando MD 200 [facility] [place] [address] Patient Assistance Program Allergies Active Allergy Reactions [...] mouth in the morning. 0 Active Pancrelipase (Gvn-Nhsv-Tjcu) 20670-43973 UNIT Oral Capsule Delayed Release Particles (Creon 81545) 2 cap with meals, 1 with larger [...] -19) 10/16/2022 Coronary artery disease invo lving [place] coronary artery of [place] heart without angina pectoris 08/20/2022 Overview: Severe [...] WNL Factor V+heteroqygous. 04/10 colon-Dr Eller [facility] 2 polyps 1 tubular adenoma. Kevin 5y 2013 sleep study [facility] WNL [address] Elena [facility] Essential hypertension with goal blood pressure less [...] WNL, antiphos lipids WNL Factor V+heteroqygous. FM SD-LVCK-OHVOF DIS NEC documented as of this encounter (statuses as of 03/03/2024) Immunizations Name Administration Dates Next Due COVID-19 mRNA, LNP-s, No Pre serve, 2-Dose Series ([employer]) 01/13/2022,07/21/2021,02/01/2021,12/26 COVID-19, MRNA-LNP, 23-24, P F, 30 MCG/0.3 mL, 12 YRS AND ABOVE, IM ([facility]) 09/12/2023 Covid-19, Mrna, Lnp-s, Pf, B ivalent, [...] spoken to: : YES. I spoke with pharmaceutical service representative at [employer] and they have received all required documents. Called Rafael and let him know same. Type of assistance: [employer] Applications mailed: : YES Follow up: 03/05/2024 Thank you, Shilpa Pandya Medication Student Support Services Director 03/03/2024, 9:51 AM * Telephone Encounter - Shilpa Pandya OSA - 02/28/2024 10:01 AM EDT Patient Assistance Name of Medication: Sotorasib 120 MG Oral Tablet (Lumakras) Was patient spoken to: : NO. Faxed over [employer] forms, medicare card, and approval letter for Lumakras to [employer]. Type of assistance: [employer] Dinkey Engineer Applications mailed: : YES Follow up: 03/03/2024 Thank you, Shilpa Pandya Medication Student Support Services Director 02/28/2024, 10:01 AM * Telephone Encounter - Maeve Harris OSA - 02/27/2024 2:43 PM EDT Called [employer] to check on patient's medication. They were not able to locate patient in their system at this time. Message sent to Alyson Pandya to check status of assistance- she is waiting on form to be sent back frompatient;s provider that she sent on Saturday. Will follow up again on Saturday03/02/24 CHATO [employer] Custodian Pharmacy Hematology Oncology Oral Chemotherapy Clinic Medication Therapy Disease [facility] 02/27/24 2:44 PM * Telephone Encounter - Jen Teixeira RPh - 02/24/2024 12:52 PM EDT Sotorasib RX sent to [employer] Time Spent on Encounter: 6 - 10 minutes Encounter Group: Oncology Encounter Interventions Item Category: Oral Chemotherapy Sotorasib Problem/Rationale: Adherence - Medication product not available Pharmacist Intervention(s): Medication prescribed Magnitude of Intervention: Modification of medication for asymtomatic patients (Level 2) * Telephone Encounter - Sihlpa Pandya OSA - 02/24/2024 10:45 AM EDT Patient Assistance Name of Medication: LUMAKRAS 120 MG TABS Was patient spoken to: : YES Type of assistance: Over income for pharmacy reji. Called [employer] and had Pt screened for assistance. Applications mailed: : YES, emailed to [email or web address] Follow up: 02/26/2024 Thank you, Shilpa Pandya Medication Student Support Services Director 02/24/2024, 10:45 AM * Telephone Encounter - aZida Swift OSA - 02/18/2024 10:50 AM EDT [facility] Patient Assistance Request: Medication name: LUMAKRAS 120 MG TABS Insurance? medicare d Co-pay amount: [phone] Action needed: new funding inquiry Target ship date (if applicable): N/A IF HEM/ONC: Confirm this encounter is routed to [id number]: Yes All other department requests should be flagged in referral. Confirm encounter department selected is for prescribing physician: Yes If URGENT: Send TEAMS message to appropriate parts department manager (see "Patient Assistance Guide" - ROUTING POOLS:[facility] on shared drive): [] Urgent message sent to: Thank you, CHATO Spear [facility] 02/18/2024,10:50 AM documented in this encounter Plan of Treatment Upcoming Encounters Date Type Department Care Team (Late st Contact Info) Description 03/03/2024 11:30 AM EDT Imaging Radiology [facility] 132 [facility] [place] [address] 03/03/2024 12:00 PM EDT Office Visit Pulmonary Medicine, [facility] 132 [facility] [place] [address] Chris Kaplan MD [address] [place] [address] 03/04/2024 1:15 PM EDT Pharmacy Pharmacy Hematology Oncology [facility] [address] [facility] [place] [address] [facility]Onc [address] [place] [address] 03/10/2024 9:20 AM EDT Laboratory Laboratory [facility] [place] [address] [place] [phone] [place], Lab [facility] [address] [facility] [place] [address] 03/10/2024 10:30 AM EDT Hem[facility] [address] [place], [place] [phone] Rehana, Chair 4 Hem Onc [facility] [address] [place], [place] [address] 03/17/2024 9:00 AM EDT Office Visit Hematology/Oncology [facility] [place] [address] [place], [place] [phone] Amber Huizar CRNP [address] [place] [address] 07/20/2024 10:15 AM EDT Office Visit Dermatology [facility] [place] [address] [place], [place] [address] Cal Jernigan MD [address] [place], [place] [address] 07/21/2024 1:45 PM EDT Office Visit Hematology/Oncology [facility] [place] [address] [place], [place] [phone] Dakota Armando MD [address] [place], [place] [address] 07/24/2024 11:40 AM EDT Office Visit [facility] [address] [place] [address] Sergio Barriga MD [address] [place] [address] Scheduled Procedures Name Priority Associated Diagnoses Date/Ti [...] this encounter Medical Devices Implanted Type Area Diesel Dinkey Engineer Device Identifier Shelf Expiration Date Model / Serial / Lot Duraclip 16mm Xlg Repostn - [id number] Implanted:Qty : 1 on 07/17/2021 by Guillermo Jones DO at ENDOSCOPY [facility] [employer] [id number] 01/10/2024 [id number] / / [id number] Stent Viabil Biliary [id number] - [id number] Implanted:Qty : 1 on 07/17/2021 by Guillermo Jones DO at ENDOSCOPY [facility] [employer] REYNALDO [id number] 03/04/2024 [id number] / [id number] / [id number] Port Implant W/8f Poly Cath - [id number] Implanted:Qty : 1 on 09/13/2023 by Gary Rodriguez DO at OR [facility] Right: Chest CR BARD : PERIPHERAL VASCULAR [id number] 04/24/2025 [id number] / / [id number] documented as of this encounter Visit Diagnoses Diagnosis 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)- Primary Malignant 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 documented in this encounter Advance Directives Documents on File Type Date Recorded Patient Park Superintendent Expl anation Advance Directives and Living Will [...] Agen t (per Health Care Power of Dental Receptionist document) [email or web address] [email or web address] Bela Sibling First Alternate Health Care Agent (per Health Care Power of Dental Receptionist document) Care Teams Personal Protection Specialist Relationship Specialty Start Date End Date Sergio Barriga MD [address] [place] [address] PCP - General Family Medicine 08/07/19 documented as of this encounter
--- OUTSIDE RECORDS SUMMARY | 2024-04-18 23:53 | External Medical Summary | Summary of Care ---
Author Name Unknown Organization [facility] Address [address] [facility] [address] Phone [phone] Care Team Providers Care Thoracic Medicine Physician Name Role Phone Sergio Barriga MD Primary Care Provider + Encounter Details Date Type Department Care Team (Late st Contact Info) Description 02/19/2024 9:45 AM EDT Nurse Only Hematology/Oncology [facility] Shaina Kimball [address] [place] [phone] Rehana, Nurse Hem Onc Scenery [address] [place] [address] Allergies Active Allergy Reactions Criticality Noted Date Comments Lisinopril Cough Low 08/07/2019 documented as of this encounter (statuses as of 02/26/2024) Medications Medication Sig Dispensed Refills Start Date End Date Status Boost 100 Calorie Smart Oral Liquid Take by mouth. 0 Act miley Multi Vitamin Daily Oral Tablet Take by mouth. 0 Act miley Aspirin 81 MG Oral Tablet Delayed Release Take 1 Tablet by mouth in the morning. 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 FM LT-AYSS-KIAXH DIS NEC documented as of this encounter (statuses as of 02/26/2024) Immunizations Name Administration Dates Next Due COVID-19 mRNA, LNP-s, No Pre serve, 2-Dose Series ([employer]) 01/13/2022,07/21/2021,02/01/2021,12/26 COVID-19, MRNA-LNP, 23-24, P F, 30 MCG/0.3 mL, 12 YRS AND ABOVE, IM ([facility]) 09/12/2023 Covid-19, Mrna, Lnp-s, Pf, B ivalent, 30 Mcg, IM, 12 yrs and above ([employer]) 08/16/2022 HEP A - Hepatitis A (Adult [...] as of this encounter Progress Notes * Juan Smith, RN - 02/19/2024 10:16 AM EDT Education completed. MTM aware of [facility] approval. documented in this encounter Plan of Treatment Upcoming Encounters Date Type Department Care Team (Late st Contact Info) Description 02/27/2024 1:15 PM EDT Pharmacy Pharmacy Hematology Oncology [place] [address] [place] [address] [facility], [facility] Hem/Onc [facility] [place] [address] 03/10/2024 9:20 AM EDT Laboratory Laboratory Sharif Kimball [place] [address] [phone] Rehana Lab [place] [address] [facility] [place] [address] 03/10/2024 10:30 AM EDT Hem/Onc Treatment Hematology/Oncology Treatment [place] [address] [place] [phone] Rehana, Chair 4 Hem Onc [facility] [address] [place] [address] [address] 03/17/2024 9:00 AM EDT Office Visit Hematology/Oncology Sharif Kimball [place] [address] [place] [phone] Amber Huizar CRNP [address] [place] [address] 07/20/2024 10:15 AM EDT Office Visit Dermatology [facility] 200 [facility] [place] [address] Cal Jernigan MD 200 [facility] [place] [address] 07/21/2024 1:45 PM EDT Office Visit Hematology/Oncology [facility] 200 [facility] [place] [phone] Dakota Armadno MD 200 [facility] [place] [address] 07/24/2024 11:40 AM EDT Office Visit Family Practice [facility] [address] [address] Sergio Barriga MD [address] [place] [address] Scheduled Procedures Name Priority Associated Diagnoses Date/Ti [...] this encounter Medical Devices Implanted Type Area Paste Up Copy Camera Operator Device Identifier Shelf Expiration Date Model / Serial / Lot Duraclip 16mm Xlg Repostn - [id number] Implanted:Qty : 1 on 07/17/2021 by Guillermo Jones DO at ENDOSCOPY [facility] [place] [employer] [id number] 01/10/2024 [id number] / / [id number] Stent Viabil Biliary [id number] - [id number] Implanted:Qty : 1 on 07/17/2021 by Guillermo Jones DO at ENDOSCOPY [facility] [place] [employer] [id number] 03/04/2024 [id number] / [id number] / [id number] Port Implant W/8f Poly Cath - [id number] Implanted:Qty : 1 on 09/13/2023 by Gary Rodriguez DO at OR [facility] Right: Chest CR BARD : PERIPHERAL VASCULAR [id number] 04/24/2025 [id number] / / [id number] documented as of this encounter Advance Directives Documents on File Type Date Recorded Patient Supervisor Telephone Clerks Expl anation Advance Directives and Living Will [...] Agen t (per Health Care Power of Janitorial Services Supervisor document) [email or web address] [email or web address] Sibling First Alternate Health Care Agent (per Health Care Power of Janitorial Services Supervisor document) [email or web address] Care Teams Thoracic Medicine Physician Relationship Specialty Start Date End Date Sergio Barriga MD [address] [place] [address] PCP - General Family Medicine 08/07/19 documented as of this encounter
--- OUTSIDE RECORDS SUMMARY | 2024-04-18 23:54 | External Medical Summary | Summary of Care ---
Author Name Unknown Organization [facility] Address [address] [place] [address] Phone [phone] Care Team Providers Care Dietitian Consultant Name Role Phone Sergio Barriga MD [...] HCL NOS 200MG Dakota Armando MD 200 [place] [address] Anc Hem/Onc [address] [address] Referral ID Status Reason Start Date Expiration Date V isits Requested Visits Authorized [id number] Authorized 02/14/2024 11/24/[phone] Encounter Details Date Type Department Care Team (Latest Contact Info) Description 02/25/2024 10:30 AM EDT Hem/Onc Treatment Hematology/Oncolog y Treatment, [address] [address] Encounter for antineoplastic chemotherapy*; 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); 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) Allergies Active Allergy Reactions Criticality Noted Date Comments Lisinopril Cough Low 08/07/2019 documented as of this encounter (statuses as of 02/25/2024) Medications Medication Sig Dispensed Refills Start Date End Date Status Boost 100 Calorie Smart Oral Liquid Take by mouth. 0 Act miley Multi Vitamin Daily Oral Tablet Take by mouth. 0 Act miley Aspirin 81 MG Oral Tablet Delayed Release Take 1 Tablet by mouth in the morning. 0 Active Pancrelipase (Lyy-Mxgt-Oruw) 75486-[address] UNIT Oral Capsule Delayed Release Particles (Creon 84501) 2 cap with meals, 1 with larger [...] as of this encounter (statuses as of 02/25/2024) Active Problems Problem Noted Date Diagnosed Date [...] lipids WNL Factor V+heteroqygous. 04/10 colon-[facility] Rafita [facility] 2 polyps 1 tubular [...] as of this encounter (statuses as of 02/25/2024) Resolved Problems Problem Noted Date Diagnosed Date [...] WNL, antiphos lipids WNL Factor V+heteroqygous. FM RH-THEE-FZOMX DIS NEC documented as of this encounter (statuses as of 02/25/2024) Immunizations Name Administration Dates Next Due COVID-19 mRNA, LNP-s, No Pre serve, 2-Dose Series ([employer]) 01/13/2022,07/21/2021,02/01/2021,01/04 COVID-19, MRNA-LNP, 23-24, P F, 30 MCG/0.3 mL, 12 YRS AND ABOVE, IM ([employer]) 09/12/2023 Covid-19, Mrna, Lnp-s, Pf, B ivalent, 30 Mcg, IM, 12 yrs and above ([employer]) 08/16/2022 HEP A - Hepatitis A (Adult [...] of this encounter Nursing Notes * Krysten Vaelncia RN - 02/25/2024 4:11 PM EDT Goals: [...] 1:15 PM EDT Pharmacy Pharmacy Hematology Oncology [facility] [address] [place] [address] [facility], [facility] Hem/Onc [address] [place] [address] 03/10/2024 9:20 AM EDT Laboratory Laboratory [facility] [place] 200 [facility] [place] [phone] Rehana, Lab [address] [place] [address] 03/10/2024 10:30 AM EDT [facility] 200 [facility] [address] [place] [phone] Rehana, Chair 4 Hem Onc [address] [place] [address] 03/17/2024 9:00 AM EDT Office Visit Hematology/Oncology [facility] [place] 200 [facility] [place] [phone] Amber Huizar CRNP [address] [place] [address] [place] [address] 07/20/2024 10:15 AM EDT Office Visit Dermatology [facility] [place] 200 [facility] [place] [place] [address] Cal Jernigan MD 200 [facility] [place] [address] 07/21/2024 1:45 PM EDT Office Visit Hematology/Oncology [facility] [place] [address] [phone] Dakota Armando MD [address] [place] [address] 07/24/2024 11:40 AM EDT Office Visit Family Practice [facility] [address] [place] [address] Sergio Barriga MD [address] [place] [address] Scheduled Procedures Name Priority Associated Diagnoses Date/Ti [...] this encounter Medical Devices Implanted Type Area Editor Newspaper Device Identifier Shelf Expiration Date Model / Serial / Lot Duraclip 16mm Xlg Repostn - [id number] Implanted:Qty : 1 on 07/17/2021 by Guillermo Jones DO [place] [facility] [employer] [id number] 01/10/2024 [id number] / / [id number] Stent Viabil Biliary 05non7qv - [id number] Implanted:Qty : 1 on 07/17/2021 by Guillermo Jones DO [place] [facility] [employer] [id number] 03/04/2024 [id number] / [id number] / [id number] Port Implant W/8f Poly Cath - [id number] Implanted:Qty : 1 on 09/13/2023 by Gary Rodriguez DO at OR [facility] Right: Chest CR BARD : PERIPHERAL VASCULAR [id number] 04/24/2025 [id number] / / [id number] documented as of this encounter Visit Diagnoses [...] ONCE PRN Other, Hypersensitivity Reaction, Starting on Sat02/25/24 at 1041, Until Sat02/26/24 at 1040, For 24 hours EPINEPHrine 1 MG/ML inj 0.3 mg 0.3 mg, Intramuscular, ONCE PRN Other, Hypersensitivity Reaction or Anaphylaxis, Starting on Sat02/25/24 at 1041, Until Sat02/26/24 at 1040, For 24 hours hEParin 100 UNIT/ML Lock Flush inj 500 Units 500 Units (5 mL), IV Lock, PRN Other, IV Flush, Starting on Sat02/25/24 at 1041, Until Sat02/26/24 at 1040, For 24 hours, Do not flush if lock, PICC, or central line not in place; IV infusing or unable to flush. Given 02/25/2024 1:44 PM EDT 500 Units Hydrocortisone Sod Suc (PF) (Solu-Cortef) inj 100 mg 100 mg, IV Push, ONCE PRN Other, Hypersensitivity Reaction, Starting on Sat02/25/24 at 1041, Until Sat02/26/24 at 1040, For 24 hours LORAzepam (Ativan) tab 0.5 mg 0.5 mg, Oral, ONCE PRN Anxiety, Nausea, Starting on Sat02/25/24 at 1145, Until Discontinued NSS infusion Intravenous, at 50 mL/hr, PRN, Starting on Sat02/25/24 at 1145, Until Discontinued, Maintenance line Start Infusion 02/25/2024 11:10 AM EDT 50 mL/hr oxygen GAS Inhalation, OXYGEN, First dose on Sat02/25/24 at 1115, Until Discontinued, Device/Managed by: Low Flow Device, [...] Flush, Starting on Sat02/25/24 at 1041, Until Sat02/26/24 at 1040, For 24 hours, Do not flush if lock, PICC, or central line not in place; IV infusing or unable to flush. Given 02/25/2024 1:44 PM EDT 10 mL Inactive Administered Medications [...] 1:06 PM EDT 1,800 mg 500 mL/hr ondansetron [...] 12:18 PM EDT 200 mg 80 mL/hr documented in this encounter Advance Directives Documents on File Type Date Recorded Patient Waiter/Waitress Club Expl anation Advance Directives and Living Will 10/23/2022 4:43 PM Virginie RoseibcorrytLlashaunWiyonas .PDF Latest Code Status on File Code Status Date Activated Date Inactivated Comments Full Code 07/16/2021 10:04 AM 07/18/2021 6:28 PM This order reflects the patients wishes and were consensually agreed upon. Healthcare Agents on File Name Relationship Healthcare Agent Relationship Communication Virginie Cramer Spouse Health Care Agen t (per Health Care Power of Bindery Manager document) [email or web address] Cramer Sibling First Alternate Health Care Agent (per Health Care Power of Bindery Manager document) [email or web address] Care Teams Dietitian Consultant Relationship Specialty Start Date End Date Sergio Barriga MD [address] [place] [address] PCP - General Family Medicine 08/07/19 documented as of this encounter
--- OUTSIDE RECORDS SUMMARY | 2024-04-18 23:54 | External Medical Summary ---
Author Name Unknown Address Unknown Organization K09:[facility] [place] [address] Laboratory Report Ordering Provider Test Date Status JOSE ROY 02/25/2024 09:25:58 Final Observation Date Value Abnormality Reference (Units ) Status WBC, Total 02/25/2024 09:25:58 4.73 4.00-10.8 0 (K/uL) Final RBC 02/25/2024 09:25:58 4.35 4.50-5.25 (M/uL) Final Hemoglobin 02/25/2024 09:25:58 12.6 Below low normal 14 .0-16.8 (g/dL) Final HCT 02/25/2024 09:25:58 40.5 40.0-48.4 (%) Final MCV 02/25/2024 09:25:58 93.1 82.0-99.5 (fL) Final MCH 02/25/2024 09:25:58 29.0 27.0-34.0 (pg) Final MCHC 02/25/2024 09:25:58 31.1 32.0-36.0 (g/dL) Final RDW 02/25/2024 09:25:58 19.5 11.5-15.5 (%) Final Platelets 02/25/2024 09:25:58 280 140-400 (K /uL) Final MPV 02/25/2024 09:25:58 9.1 6.6-11.1 ( fL) Final Performing Location [facility] [place] [address]
--- OUTSIDE RECORDS SUMMARY | 2024-04-18 23:54 | External Medical Summary | Summary of Care ---
Author Name Unknown Organization [facility] Address [address] [place] [address] Phone [phone] Care Team Providers Care Finish Molder Name Role Phone Sergio Barriga MD Primary Care Provider + Encounter Details Date Type Department Care Team (Late st Contact Info) Description 02/18/2024 Telephone Hematology/Oncology [facility] [place] 200 [facility] [place] [phone] Dakota Armando MD 200 [facility] [place] [address] Allergies Active Allergy Reactions Criticality Noted Date Comments Lisinopril Cough Low 08/07/2019 documented as of this encounter (statuses as of 02/24/2024) Medications Medication Sig Dispensed Refills Start Date End Date Status Boost 100 Calorie Smart Oral Liquid Take by mouth. 0 Active Multi Vitamin Daily Oral Tablet Take by mouth. 0 Active Aspirin 81 MG Oral Tablet Delayed Release Take 1 Tablet by mouth in the morning. 0 Active Pancrelipase (Yqn-Luxy-Eucx) 98299-[address] UNIT Oral Capsule Delayed Release Particles (Creon 06668) 2 cap with meals, 1 with larger [...] as of this encounter (statuses as of 02/24/2024) Active Problems Problem Noted Date Diagnosed Date Malignant neoplasm of body of pancreas 3 Metastasis to liver 08/30/2023 Encounter for antineoplastic chemotherapy 2022 History of carcinoma of pancreas 07/18/2023 Post-viral cough syndrome 07/09/2023 Upper airway cough syndrome 07/09/2023 History of 2019 novel coronavirus disease (COVID -19) 10/16/2022 Coronary artery disease invo lving [place] coronary artery of [place] heart without angina pectoris 08/20/2022 Overview: Severe [...] as of this encounter (statuses as of 02/24/2024) Resolved Problems Problem Noted Date Diagnosed Date [...] WNL, antiphos lipids WNL Factor V+heteroqygous. FM DJ-UMSL-ZQBIG DIS NEC documented as of this encounter (statuses as of 02/24/2024) Immunizations Name Administration Dates Next Due COVID-19 mRNA, LNP-s, No Pre serve, 2-Dose Series ([employer]) 01/13/2022,07/21/2021,02/01/2021,01/04 COVID-19, MRNA-LNP, 23-24, P F, 30 [...] encounter Miscellaneous Notes * Telephone Encounter - Jen Teixeira RPh - 02/24/2024 12:52 PM EDT Sotorasib RX sent to [employer] Time Spent on Encounter: 6 - 10 [...] assistance: Over income for pharmacy reji. Called [employer] and had Pt screened for assistance. Applications mailed: : YES, emailed to [email or web address] Follow up: 02/26/2024 Thank you, Shilpa Pandya Medication Medical Nurse 02/24/2024, 10:45 AM * Telephone Encounter - Zaida Swift OSA - 02/18/2024 10:50 AM EDT [facility]SP Patient Assistance Request: Medication name: LUMAKRAS 120 MG TABS Insurance? medicare d Co-pay amount: [phone] Action needed: new funding inquiry Target ship date (if applicable): N/A IF HEM/ONC: Confirm this encounter is routed to [id number]: Yes All other department requests should be flagged in referral. Confirm encounter department selected is for prescribing physician: Yes If URGENT: Send TEAMS message to appropriate department director (see "Patient Assistance Guide" - ROUTING POOLS:[facility] on shared drive): [] Urgent message sent to: Thank you, CHATO Spear [facility] 02/18/2024,10:50 AM documented in this encounter Plan of Treatment Upcoming Encounters Date Type Department Care Team (Latest Contact Info) Description 02/25/2024 9:30 AM EDT Laboratory Laboratory [facility] 200 [place] [phone] [place], [address] [place] [address] 02/25/2024 10:30 AM EDT Hem/Onc Treatment Hematology/Oncology Treatment, [address] [address] 02/25/2024 1:30 PM EDT Pharmacy Pharmacy Hematology Oncology [address] [address] [facility] Hem/Onc [address] [place] [address] Malignant neoplasm of pancreas, unspecified location of malignancy (HCC)* 02/27/2024 1:15 PM EDT Pharmacy Pharmacy Hematology Oncology [address] [place] [address] [facility] Hem/Onc [address] [place] [address] 03/17/2024 9:00 AM EDT Office Visit Hematology/Oncology [facility] [address] [place] [phone] Amber Huizar CRNP 400 [facility] [place] [address] 07/20/2024 10:15 AM EDT Office Visit Dermatology [facility] 200 [facility] [place] [address] Cal Jernigan MD 200 [facility] [place] [address] 07/21/2024 1:45 PM EDT Office Visit Hematology/Oncology [facility] [address] [place] [phone] Dakota Armando MD 200 [facility] [place] [address] 07/24/2024 11:40 AM EDT Office Visit Family Practice [facility] 132 [facility] [place] [address] Sergio Barriga MD 132 [facility] [place] [address] Scheduled Procedures Name Priority Associated Diagnoses Date/Ti me COLONOSCOPY FLEXIBLE PROXIMA L DIAGNOSTIC Recall History of adenomatous polyp of colon Health Maintenance Due Date Last Done Comments Depression Screening 09/10/2023 09/10/2022 COLONOSCOPY-ANNUAL AGES 18-100 09/14/2023 09/14/2022, 09/14/2022, 04/02/2017 GFR 02/02/2025 02/03/2024, 12/27, 01/06/2024, Additional history exists Albumin/Creatinine Ratio 10/16/2025 10/16/2022, [...] this encounter Medical Devices Implanted Type Area Farm Implement Engine Mechanic Device Identifier Shelf Expiration Date Model / Serial / Lot Duraclip 16mm Xlg Repostn - [id number] Implanted:Qty : 1 on 07/17/2021 by Guillermo Jones DO [place] [facility] [place] [employer] [id number] 01/10/2024 [id number] / / [id number] Stent Viabil Biliary 10amx1df - [id number] Implanted:Qty : 1 on 07/17/2021 by Guillermo Jones DO [place] [facility] [employer] [id number] 03/04/2024 [id number] / [id number] / [id number] Port Implant W/8f Poly Cath - [id number] Implanted:Qty : 1 on 09/13/2023 by Gary Rodriguez DO at OR [facility] Right: Chest CR BARD : PERIPHERAL VASCULAR [id number] 04/24/2025 [id number] / / [id number] documented as of this encounter Visit Diagnoses Diagnosis 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)- Primary Malignant 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 Malignant neoplasm of pancreas, unspecified location of malignancy (HCC)- Primary documented in this encounter Advance Directives Documents on File Type Date Recorded Patient Archivist [employer] Expl anation Advance Directives and Living Will [...] Agen t (per Health Care Power of B2B Outside Sales Representative document) [email or web address] Sibling First Alternate Health Care Agent (per Health Care Power of B2B Outside Sales Representative document) [email or web address] Care Teams Finish Molder Relationship Specialty Start Date End Date Sergio Barriga MD [address] [place] [address] PCP - General Family Medicine 08/07/19 documented as of this encounter
--- OUTSIDE RECORDS SUMMARY | 2024-04-18 23:54 | External Medical Summary | Summary of Care ---
Author Name Unknown Organization [facility] Address [address] [place] [address] Phone [phone] Care Team Providers Care Dynamiter Name Role Phone Sergio Barriga MD Primary Care Provider + Reason for Visit * Reason Comments Medication Management Encounter Details Date Type Department Care Team (Late st Contact Info) Description 02/21/2024 1:30 PM EDT Pharmacy Pharmacy Hematology Oncology [facility] [address] [place] [address] [facility], [facility] Hem/Onc [address], [place] [id number] Malignant neoplasm of pancreas, unspecified location of malignancy (HCC)* Allergies Active Allergy Reactions Criticality Noted Date Comments Lisinopril Cough Low 08/07/2019 documented as of this encounter (statuses as of 02/21/2024) Medications Medication Sig Dispensed Refills Start Date End Date Status Boost 100 Calorie Smart Oral Liquid Take by mouth. 0 Act miley Multi Vitamin Daily Oral Tablet Take by mouth. 0 Act miley Aspirin 81 MG Oral Tablet Delayed Release Take 1 Tablet by mouth in the morning. 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 04/10 colon-Dr Eller [facility] 2 polyps 1 tubular adenoma. Kevin 6y 2013 sleep study [facility] WNL [address] Elena [facility] Essential hypertension with goal [...] as of this encounter (statuses as of 02/21/2024) Resolved Problems Problem Noted Date Diagnosed Date [...] WNL, antiphos lipids WNL Factor V+heteroqygous. FM [id number]-[id number] DIS NEC documented as of this encounter (statuses as of 02/21/2024) Immunizations Name Administration Dates Next Due COVID-19 mRNA, LNP-s, No Pre serve, 2-Dose Series (Leostream) 01/13/2022,07/21/2021,02/01/2021,01/04 COVID-19, MRNA-LNP, 23-24, P F, 30 MCG/0.3 mL, 12 YRS AND ABOVE, IM (Kitchon-ComirnatExtole) 09/12/2023 Covid-19, Mrna, Lnp-s, Pf, B ivalent, 30 Mcg, IM, 12 yrs and above (Leostream) 08/16/2022 HEP A - Hepatitis A (Adult [...] as of this encounter Progress Notes * Daphne Weber, JACLYN Blue - 02/21/2024 11:58 AM EDT MEDICATION THERAPY MANAGEMENT SOTORASIB TREATMENT STATUS NOTE Rafael Bowserenrique [phone] Patient Phone Numbers Communication: Chart review Treatment: Medication: Sotorasib (Lumakras) Indication/Staging/Diagnosis Code: met pancreatic cancer, KRAS G12C mutation / C25.1 Dose: 960mg daily Administration: +/- food Start Date: TBD Primary Sheet Metal Technician/Oncologist: Dr. Gina Armando Assessment and Plan: [place] plan uploaded and sent to Dr. Armando for signature Yes/no Date Action Taken [place] plan entered? yes 02/14/24 Consent completed? yes 02/19/24 Intro/med rec completed? N/A Previously enrolled in [facility] Precert completed? yes 02/18/24 Approved Test claim completed? yes 02/18/24 [facility]SP - $3,323.53 Financial assistance needed? yes 02/19/24 [facility] review pending Physician signature? yes 02/21/24 Rx released? no Education completed? Will follow up in 2 days Patient assistance & Rx release [facility] will contact patient once med shipped/received to complete medication education Please refer to initial intake note for detailed review of regimen and patient- specific education points Daphne Weber, junior administrative assistant Elementary Reading Specialist Hematology Oncology Oral Chemotherapy Clinic Medication Therapy Disease Management [facility] 02/21/24,12:01 PM Time Spent on Encounter: < 5 minutes Encounter Group: Oncology Encounter Interventions Item Category: Oral Chemotherapy Sotorasib Problem/Rationale: Safety: Needs additional monitoring - Medication Requires monitoring Pharmacist Intervention(s): Patient assistance follow-up Magnitude of Intervention: Monitoring with no interventions (Level 0) documented in this encounter Plan of Treatment Upcoming Encounters Date Type Department Care Team (Late st Contact Info) Description 02/25/2024 9:30 AM EDT Laboratory Laboratory [facility] [address] [place] [phone] [place] [address] Sharif [place] [facility] [place] [address] 02/25/2024 10:30 AM EDT [facility] [place] [phone] 02/25/2024 1:30 PM EDT Pharmacy Pharmacy Hematology Oncology [facility] [address] [place] [address] [facility], [facility] Hem/Onc [address] [place] [address] 03/17/2024 9:00 AM EDT Office Visit Hematology/Oncology [facility] [place] [address] [address] [phone] Amber Huizar CRNP [address] [place] [address] 07/20/2024 10:15 AM EDT Office Visit Dermatology [facility] [place] [address] [facility] [place] [address] Cal Jernigan MD 200 [facility] [place] [address] 07/21/2024 1:45 PM EDT Office Visit Hematology/Oncology [facility] [address] [phone] Dakota Armando MD 200 [facility] [place] [address] 07/24/2024 11:40 AM EDT Office Visit Family Practice [facility] [address] [place] [address] Sergio Barriga MD [address] [place] [address] Scheduled Procedures Name Priority Associated Diagnoses Date/Ti [...] this encounter Medical Devices Implanted Type Area Local Company Truck Driver Device Identifier Shelf Expiration Date Model / Serial / Lot Duraclip 16mm Xlg Repostn - [id number] Implanted:Qty : 1 on 07/17/2021 by Guillermo Jones DO at [facility] [employer] [id number] 01/10/2024 [id number] / / [id number] Stent Viabil Biliary 39dif5on - [id number] Implanted:Qty : 1 on 07/17/2021 by Guillermo Jones DO at [facility] [employer] [id number] 03/04/2024 [id number] / [id number] / [id number] Port Implant W/8f Poly Cath - [id number] Implanted:Qty : 1 on 09/13/2023 by Gary Rodriguez DO at OR [facility] Right: Chest CR BARD : PERIPHERAL VASCULAR [id number] 04/24/2025 [id number] / / [id number] documented as of this encounter Visit Diagnoses Diagnosis Malignant neoplasm of pancreas, unspecified location of malignancy (HCC)- Primary documented in this encounter Advance Directives Documents on File Type Date Recorded Patient Cadmium Plater Expl anation Advance Directives and Living Will [...] Agen t (per Health Care Power of Government Relations Manager document) [email or web address] Temo Cramer Sibling First Alternate Health Care Agent (per Health Care Power of Government Relations Manager document) [email or web address] Care Teams Dynamiter Relationship Specialty Start Date End Date Sergio Barriga MD [address] [place] [address] PCP - General Family Medicine 08/07/19 documented as of this encounter
--- OUTSIDE RECORDS SUMMARY | 2024-04-18 23:54 | External Medical Summary | Summary of Care ---
Author Name Unknown Organization [facility] Address [address] [place] [address] Phone [phone] Care Team Providers Care Core Mounter Name Role Phone Sergio Barriga MD Primary Care Provider + Encounter Details Date Type Department Care Team (Late st Contact Info) Description 02/18/2024 Telephone Hematology/Oncology [facility] [place] [address] [facility] [place] [phone] Dakota Armando MD [address] [facility] [place] [address] Allergies Active Allergy Reactions Criticality Noted Date [...] mouth in the morning. 0 Active Pancrelipase (Upz-Oryc-Kyks) 24064-[address] UNIT Oral Capsule Delayed Release Particles (Creon 15824) 2 cap with meals, 1 with larger [...] -19) 10/16/2022 Coronary artery disease invo lving [place] coronary artery of [place] heart without angina pectoris 08/20/2022 Overview: Severe [...] lipids WNL Factor V+heteroqygous. 04/10 colon-Dr Eller [facility] 2 polyps 1 tubular adenoma. Kevin 6y 2013 sleep study [facility] WNL [address] Elena [facility] Essential hypertension with goal blood pressure [...] WNL, antiphos lipids WNL Factor V+heteroqygous. FM [id number] DIS NEC documented as of this encounter (statuses as of 02/24/2024) Immunizations Name Administration Dates Next Due COVID-19 mRNA, LNP-s, No Pre serve, 2-Dose Series ([employer]) 01/13/2022,07/21/2021,02/01/2021,01/04 COVID-19, MRNA-LNP, 23-24, P F, 30 [...] 12:52 PM EDT Sotorasib RX sent to [facility] Time Spent on Encounter: 6 - 10 [...] assistance: Over income for pharmacy reji. Called [employer] and had Pt screened for assistance. Applications mailed: : YES, emailed to [email or web address] Follow up: 02/26/2024 Thank you, Shilpa Pandya Medication Television Actor 02/24/2024, 10:45 AM * Telephone Encounter - Zaida Swift OSA - 02/18/2024 10:50 AM EDT GSP Patient Assistance Request: Medication name: LUMAKRAS 120 MG TABS Insurance? medicare d Co-pay amount: [phone] Action needed: new funding inquiry Target ship date (if applicable): N/A IF HEM/ONC: Confirm this encounter is routed to [id number]: Yes All other department requests should be flagged in referral. Confirm encounter department selected is for prescribing physician: Yes If URGENT: Send TEAMS message to appropriate general manager land department (see "Patient Assistance Guide" - ROUTING POOLS:[facility] on shared drive): [] Urgent message sent to: Thank you, CHATO Spear [facility] 02/18/2024,10:50 AM documented in this encounter Plan of Treatment Upcoming Encounters Date Type Department Care Team (Latest Contact Info) Description 02/25/2024 9:30 AM EDT Laboratory Laboratory [facility] [address] [place] [phone] [place], [address] [place] [address] 02/25/2024 10:30 AM EDT Hem/Onc Treatment Hematology/Oncology Treatment, [address] [phone] 02/25/2024 1:30 PM EDT Pharmacy Pharmacy Hematology Oncology [address] [address] [facility] Hem/Onc [address] [place] [address] Malignant neoplasm of pancreas, unspecified location of malignancy (HCC)* 02/27/2024 1:15 PM EDT Pharmacy Pharmacy Hematology Oncology [address] [place] [address] [facility] Hem/Onc [address] [place] [address] 03/17/2024 9:00 AM EDT Office Visit Hematology/Oncology [facility] [address] [place] [phone] Amber Huizar CRNP [address] [facility] [place] [address] 07/20/2024 10:15 AM EDT Office Visit Dermatology [facility] [address] [facility] [place] [address] Cal Jernigan MD 200 [facility] [place] [address] 07/21/2024 1:45 PM EDT Office Visit Hematology/Oncology [facility] [address] [place] [phone] Dakota Armando MD 200 [facility] [place] [address] 07/24/2024 11:40 AM EDT Office Visit Family Practice [facility] 132 [facility] [place] [address] Sergio Barriga MD 132 [facility] [place] [address] Scheduled Procedures Name Priority Associated Diagnoses Date/Ti [...] this encounter Medical Devices Implanted Type Area Windshield Repair Technician Device Identifier Shelf Expiration Date Model / Serial / Lot Duraclip 16mm Xlg Repostn - [id number] Implanted:Qty : 1 on 07/17/2021 by Guillermo Jones DO at [facility] [employer] [id number] 01/10/2024 [id number] / / [id number] Stent Viabil Biliary [id number] - [id number] Implanted:Qty : 1 on 07/17/2021 by Guillermo Jones DO at [facility] [employer] [id number] 03/04/2024 [id number] / [id number] / [id number] Port Implant W/8f Poly Cath - [id number] Implanted:Qty : 1 on 09/13/2023 by Gary Rodriguez DO at OR [facility] Right: Chest CR BARD : PERIPHERAL VASCULAR [id number] 04/24/2025 [id number] / / [id number] documented as of this encounter Visit Diagnoses Diagnosis 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)- Primary Malignant 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 Care Teams Core Mounter Relationship Specialty Start Date End Date Sergio Barriga MD [address] [place] [address] PCP - General Family Medicine 08/07/19 documented as of this encounter
--- OUTSIDE RECORDS SUMMARY | 2024-04-18 23:54 | External Medical Summary | Summary of Care ---
Author Name Unknown Organization [facility] Address [address] [place] [address] Phone [phone] Care Team Providers Care Diesel Technician Mechanic Name Role Phone Sergio Barriga MD Primary Care Provider + Encounter Details Date Type Department Care Team (Late st Contact Info) Description 02/25/2024 Documentation Hematology/Oncology Treatment, [place] [address] [place] [phone] Nohemy Hunt, [facility] [address] [facility] [place] [address] Allergies Active Allergy Reactions Criticality Noted Date [...] mouth in the morning. 0 Active Pancrelipase (Rlm-Lysw-Jgos) 05382-[address]223 UNIT Oral Capsule Delayed Release Particles (Creon 15256) 2 cap with meals, 1 with larger [...] -19) 10/16/2022 Coronary artery disease invo lving [place] coronary artery of [place] heart without angina pectoris 08/20/2022 Overview: Severe [...] WNL, antiphos lipids WNL Factor V+heteroqygous. FM [id number]-STDT-FHXQH DIS NEC documented as of this encounter (statuses as of 02/25/2024) Immunizations Name Administration Dates Next Due COVID-19 mRNA, LNP-s, No Pre serve, 2-Dose Series (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 Communication Order: Completed Hooper Plan: Completed Signed consent: Completed Pre-cert complete:Completed Emissions Engineer/Oncologist: Dakota Armando MD Current Treatment Protocol/Regimen Name: Gemcitabine, Nab-Paclitaxel, Oral Sotorasib Cycle: C1 D1 is 02/25/2024 Treatment plan medications: Gemcitabine 1000 mg/m2 Nab-Paclitaxel 125 mg/m2 Repeat every 14 days Oral Sotorasib 960 mg once daily (see Oral Chemo MTDM [facility] notes) Cycle repeats every 14 days Comments: 3rd line, 2nd opinion from [facility] Watch LFTs given on both Abraxane and Sotorasib! Reference: "A Phase Ib/II Study of Sotorasib Combined With Chemotherapy for Second Line Treatment of KRAS p. G12C Mutated Advanced Pancreatic Cancer" https://clinicaltrials.gov/study/QNT88768221?cond=Pancreatic%20Cancer&intr=Sotor asib,%20gemcitabine&rank=1#publications Note that study withdrew from completing results; given staging of patient, genetics, and second opinion from [facility], team and patient decided this is the next best course of action. Supportive Care: Emesis prophylaxis: LOW RISK, PO ondansetron 8 mg in clinic prior to IV treatments, has the same for home administration every 8 hours prn for breakthrough Hypersensitivity prophylaxis: n/a Antimicrobial prophylaxis: n/a Hydration: n/a Growth factors: n/a - LOW RISK, n/a Skeletal-related event prophylaxis: n/a - no known bone involvement or risk at this time TLS prophylaxis: n/a Other: Patient Description: Weight: 60.1 kg Height: 1.753 m BSA: body surface area is unknown because there is no height or weight on file. BMI: There is no height or weight on file to calculate BMI. Comments regarding dose calculations: Use actual body weight Monitoring Parameters CBC and CMP reviewed. Estimated ClCr = Serum creatinine: 1 mg/dL 02/03/24927 Estimated creatinine clearance: 56.8 mL/min EF (date): not indicated Anthracycline cumulative dose: not indicated Hepatitis panel (date): 08/28/2021 - not immune - but then received vaccine series in 2022 Urine protein: n/a TSH: n/a test: n/a Drug interaction assessment: Treatment plan and current medication list evaluated for drug-drug interactions. No clinically significant drug interaction identified Oncology Treatment History: 08/07/21: Whipple's procedure 08/2021-01/2022: gemcitabine + capecitabine 09/17/23-01/2024: mFOLFIRINOX Patient counseling: Not completed by infusion pharmacist at this time, oral chemotherapy is providing education on sotorasib. Chemotherapy note completed by: Nohemy Hunt RPh Hematology/Oncology Treatment, [address] [address] 02/25/24 7:45 AM Time Spent on Encounter: 16 - 20 minutes Encounter Group: CBHOPP Encounter Interventions Item Category: Chemotherapy Nab-paclitaxel Problem/Rationale: Safety: Needs additional monitoring - Medication Requires monitoring Pharmacist Intervention(s): Care coordination, Lab monitoring, and Lab work requested Magnitude of Intervention: Monitoring with direction (Level 1) documented in this encounter Plan of Treatment Upcoming Encounters Date Type Department Care Team (Latest Contact Info) Description 02/25/2024 9:30 AM EDT Laboratory Laboratory [address], [place] [phone] Renee Kimball [facility] 200 [facility] [place], [place] [address] 02/25/2024 10:30 AM EDT Hem/Onc Treatment Hematology/Oncology Treatment, [place] 200 [facility], [place] [phone] 02/25/2024 1:30 PM EDT Pharmacy Pharmacy Hematology Oncology [address] [address] [facility] [place], [facility] Hem/Onc [address] [place] [address] Malignant neoplasm of pancreas, unspecified location of malignancy (HCC)* 02/27/2024 1:15 PM EDT Pharmacy Pharmacy Hematology Oncology [address] [address] [facility], [facility] Hem/Onc [address] [place] [address] 03/17/2024 9:00 AM EDT Office Visit Hematology/Oncology [facility] Rehana [place] 200 [facility] [place], [place] [phone] Amber Huizar CRNP [address] [place] [address] 07/20/2024 10:15 AM EDT Office Visit Dermatology Sharif Kimball [place] 200 [facility] [place], [place] [address] Cal Jernigan MD 200 [facility] [place], [place] [address] 07/21/2024 1:45 PM EDT Office Visit Hematology/Oncology [facility] Rehana [place] 200 [facility] [place], [place] [phone] Dakota Armando MD 200 [facility] [place], [place] [address] 07/24/2024 11:40 AM EDT Office Visit Family [facility] [address] [place] [address] Sergio Barriga MD [address] [place] [address] Scheduled Procedures Name Priority Associated Diagnoses Date/Ti [...] this encounter Medical Devices Implanted Type Area Host Device Identifier Shelf Expiration Date Model / Serial / Lot Duraclip 16mm Xlg Repostn - [id number] Implanted:Qty : 1 on 07/17/2021 by Guillermo Jones DO at [facility] [employer] [id number] 01/10/2024 [id number] / / [id number] Stent Viabil Biliary [id number] - [id number] Implanted:Qty : 1 on 07/17/2021 by Guillermo Jones DO at ENDOS[facility] [employer] [id number] 03/04/2024 [id number] / [id number] / [id number] Port Implant W/8f Poly Cath - [id number] Implanted:Qty : 1 on 09/13/2023 by Gary Rodriguez DO at OR [facility] Right: Chest CR BARD : PERIPHERAL VASCULAR [id number] 04/24/2025 [id number] / / [id number] documented as of this encounter Advance Directives Documents on File Type Date Recorded Patient Psychologist Private Practice Expl anation Advance Directives and Living Will [...] Agen t (per Health Care Power of Concrete Stone Finisher document) [email or web address] [email or web address] Sibling First Alternate Health Care Agent (per Health Care Power of Concrete Stone Finisher document) Care Teams Diesel Technician Mechanic Relationship Specialty Start Date End Date Sergio Barriga MD [address] [place] [address] PCP - General Family Medicine 08/07/19 documented as of this encounter
--- OUTSIDE RECORDS SUMMARY | 2024-04-18 23:54 | External Medical Summary ---
Author Name Unknown Address Unknown Organization K09:[facility] [address] [place] [address] Laboratory Report Ordering Provider Test Date Status JOSE ROY 02/25/2024 09:25:58 Final After every 3 week monitorin g for first 3 months of therapy Observation Date Value Abnormality Reference (Units ) Status BUN 02/25/2024 09:25:58 14 6-20 (mg/dL) Final Creatinine 02/25/2024 09:25:58 0.9 0.6-1.2 (mg/dL) Final Glomerular filtration rate/1.73 sq M.predicted [Volume Rate/Area] in Serum, Plasma or Blood by Creatinine-based formula (CKD-EPI) 02/25/2024 09:25:58 87 >=60 (mL/min) Final eGFR is calculated based on the CKD-EPI 2020 equation Sodium 02/25/2024 09:25:58 139 135-146 (m mol/L) Final Potassium 02/25/2024 09:25:58 4.4 3.5-5.1 (m mol/L) Final Cl 02/25/2024 09:25:58 101 98-107 (mm ol/L) Final CO2 02/25/2024 09:25:58 30 22-32 (mmo l/L) Final Anion gap 02/25/2024 09:25:58 8 7-15 (mmol /L) Final Glucose 02/25/2024 09:25:58 171 Above high normal 70 -120 (mg/dL) Final Albumin 02/25/2024 09:25:58 3.9 3.8-5.0 (g /dL) Final AST (Aspartate aminotransferase) 02/25/2024 09:25:58 85 Above high normal 10-50 (U/L) Final Alk Phos 02/25/2024 09:25:58 180 Above high normal 35 -130 (U/L) Final Bilirubin, Total 02/25/2024 09:25:58 0.3 <=1 .2 (mg/dL) Final Calcium 02/25/2024 09:25:58 9.4 8.4-10.2 ( mg/dL) Final Protein 02/25/2024 09:25:58 6.9 6.0-8.3 (g /dL) Final ALT (Alanine aminotransferase) 02/25/2024 09:25:58 65 Above high normal 10-50 (U/L) Final Performing Location [facility] [place] [address]
--- OUTSIDE RECORDS SUMMARY | 2024-04-18 23:54 | External Medical Summary | Summary of Care ---
Author Name Unknown Organization [facility] Address [address] [facility] [address] Phone [phone] Care Team Providers Care Grief Counselor Name Role Phone Sergio Barriga MD Primary Care Provider + Reason for Visit * Reason Onset Date Comments Precert Future 02/14/2024 Gemzar/Abraxane/ Lumakras Encounter Details Date Type Department Care Team (Late st Contact Info) Description 02/14/2024 Telephone Hematology/Oncology [facility] [place] [address] [place] [phone] Dakota Armando MD [address] [place] [address] Precert Future (Gemzar/Abraxane/Lumakr as) Allergies Active Allergy Reactions Criticality Noted Date Comments Lisinopril Cough Low 08/07/2019 documented as of this encounter (statuses as of 02/24/2024) Medications Medication Sig Dispensed Refills Start Date End Date Status Boost 100 Calorie Smart Oral Liquid Take by mouth. 0 Ac tive Multi Vitamin Daily Oral Tablet Take by mouth. 0 Act miley Aspirin 81 MG Oral Tablet Delayed Release Take 1 Tablet by mouth in the morning. 0 Active Pancrelipase (Ust-Clrp-Fnud) 02733-[address] UNIT Oral Capsule Delayed Release Particles (Creon 78723) 2 cap with meals, 1 with larger [...] -19) 10/16/2022 Coronary artery disease invo lving [place] coronary artery of [place] heart without angina pectoris 08/20/2022 Overview: Severe [...] sleep study [facility] WNL [address] [facility] WNL, antiphos lipids WNL Factor V+heteroqygous. FM ZU-ILTV-AKOTJ DIS NEC documented as of this encounter (statuses as of 02/24/2024) Immunizations Name Administration Dates Next Due COVID-19 mRNA, LNP-s, No Pre serve, 2-Dose Series (Focus) 01/13/2022,07/21/2021,02/01/2021,02/1 COVID-19, MRNA-LNP, 23-24, P F, 30 [...] 7:55 AM EDT Sotorasib Rx sent to [facility] who will help with financial assistance * Telephone Encounter - Karen Kerns OSA - 02/19/2024 11:42 AM EDT Scheduled pt and called left detailed message regarding * Telephone Encounter - Juan Smith RN - 02/19/2024 10:18 AM EDT Patient education completed. Consent signed today for all treatment. MTM- i regarding auth approval for [facility]- awaiting PFC review and copay assistance. Scheduling- [...] Description 02/25/2024 9:30 AM EDT Laboratory Laboratory [facility] [place] [address] [place] [phone] Renee Kimball [place] [address] [place] [address] 02/25/2024 10:30 AM EDT Hem/Onc Treatment Hematology/Oncology [facility] 200 [facility], [place] [phone] 02/25/2024 1:30 PM EDT Pharmacy Pharmacy Hematology Oncology [facility] [address] [place] [address] Gm, [facility] Hem/Onc [address] [place] [address] MEDICATION THERAPY MANAGEMENT SOTORASIB 03/17/2024 9:00 AM EDT Office Visit Hematology/Oncology [facility] 200 [facility] [place] [phone] Amber Huizar CRNP [address] [place] [address] 07/20/2024 10:15 AM EDT Office Visit Dermatology [facility] 200 [facility] [place] [address] Cal Jernigan MD [address] [place] [address] [place] [address] 07/21/2024 1:45 PM EDT Office Visit Hematology/Oncology [address] [place] [phone] Dakota Armando MD [address] [place] [address] [place] [address] 07/24/2024 11:40 AM EDT Office Visit Family Practice [facility] [address] [place] [address] Sergio Barriga MD [address] [place] [address] Scheduled Orders Name Type Priority Associated Diagnoses [...] this encounter Medical Devices Implanted Type Area Certified Social Workers In Health Care Device Identifier Shelf Expiration Date Model / Serial / Lot Duraclip 16mm Xlg Repostn - [id number] Implanted:Qty : 1 on 07/17/2021 by Guillermo Jones DO [place] [facility] [place] [employer] REYNALDO [id number] 01/10/2024 [id number] / / [id number] Stent Viabil Biliary 15hem9dv - [id number] Implanted:Qty : 1 on 07/17/2021 by Guillermo Jones DO at [place] [facility] [place] [employer] [id number] 03/04/2024 [id number] / [id number] / [id number] Port Implant W/8f Poly Cath - [id number] Implanted:Qty : 1 on 09/13/2023 by Gary Rodriguez DO at OR [facility] Right: Chest CR BARD : PERIPHERAL VASCULAR [id number] 04/24/2025 [id number] / / [id number] documented as of this encounter Visit Diagnoses Diagnosis 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 Healthcare Agents on File Name Relationship Healthcare Agent Relationship Communication Virginie Cramer Spouse Health Care Agen t (per Health Care Power of College Basketball Coach document) [email or web address] [email or web address] First Alternate Health Care Agent (per Health Care Power of College Basketball Coach document) Care Teams Grief Counselor Relationship Specialty Start Date End Date Sergio Barriga MD [address] [place] [address] PCP - General Family Medicine 08/07/19 documented as of this encounter
--- OUTSIDE RECORDS SUMMARY | 2024-04-18 23:54 | External Medical Summary | Summary of Care ---
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 Angie Referring Provider Role: Specialist Specialty: Heme/Onc Reason for Referral: Oral Chemo Has consent been obtained for new oral chemo agent(s)? No, I will obtain consent prior to prescribing Comments ORAL CHEMOTHERAPY MTDM MONITORING REFERRAL This patient is being referred to the Oral Chemotherapy Clinic for medication co-management. The planned duration of treatment is: Until disease progression/toxicity Please start oral chemotherapy: Once therapy has arrived from specialty pharmacy Oral Chemotherapy Monitoring will continue until one of the following discharge criteria has been met. The provider will be informed if any of these occur. 1. Disease progression. 2. Patient non-compliance 3. Compliance and tolerating treatment well without major toxicities with routine provider follow up. 4. Completion of therapy. Additional Comments: N/A By my signature, I understand that my patient will have their medication therapy managed by the [facility] Medication Therapy Disease Management Clinic ([facility]) per established policies, procedures, and protocols. I also certify that this referral may serve as an initiation of service for the management of drug therapy in the above noted patient. [facility] providers will be responsible for scheduling patient visits, obtaining appropriate laboratory studies, and adjusting medication management therapy per patient's need, in addition to those roles spelled out in the clinic policy, procedures, and drug management protocols. I understand that the service provided by the [facility] Clinic is voluntary and have informed patient that they can refuse the service at their discretion. I am aware that the [facility] Clinic will provide me with a copy of the patient encounter via my [employer]. I authorize the [facility] Clinic to carry out these activities on my behalf. I consider this program to be a necessary part of the patient's medical care. 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 0 Active Pancrelipase (Swc-Yfsi-Vzlc) 45055-[address] UNIT Oral Capsule Delayed Release Particles (Creon 30671) 2 cap with meals, 1 with larger [...] -19) 10/16/2022 Coronary artery disease invo lving [place] coronary artery of [place] heart without angina pectoris 08/20/2022 Overview: Severe [...] lipids WNL Factor V+heteroqygous. 04/10 colon-Dr Eller [facility] 2 polyps 1 tubular adenoma. Kevin 5y 2013 sleep study [facility] WNL [address] Elena [facility] Essential hypertension with goal blood pressure less [...] WNL, antiphos lipids WNL Factor V+heteroqygous. FM EA-SUGL-ULXLV DIS NEC documented as of this encounter (statuses as of 02/24/2024) Immunizations Name Administration Dates Next Due COVID-19 mRNA, LNP-s, No Pre serve, 2-Dose Series (PrePay) 01/13/2022,07/21/2021,02/01/2021,12/26 COVID-19, MRNA-LNP, 23-24, P F, 30 [...] as of this encounter Miscellaneous Notes * Addendum Note - Marvin Teixeira RPh - 02/24/2024 7:54 AM EDTAddended by: MARVIN TEIXEIRA on: 02/24/2024 07:54 AM Modules accepted: Orders documented in this encounter Plan of Treatment Upcoming Encounters Date Type Department Care Team (Latest Contact Info) Description 02/25/2024 9:30 AM EDT Laboratory Laboratory [facility] [place] [address] [place] [phone] [facility] [place] [address] 02/25/2024 10:30 AM EDT Hem/Onc Treatment Hematology/Oncology Treatment, [place] [address] [place] [address] 02/25/2024 1:30 PM EDT Pharmacy Pharmacy Hematology Oncology [address] [place] [address] [facility] Hem/Onc [address] [place] [address] MEDICATION THERAPY MANAGEMENT SOTORASIB 03/17/2024 9:00 AM EDT Office Visit Hematology/Oncology [facility] 200 [facility] [place] [phone] Amber Huizar CRNP 400 [facility] [place] [address] 07/20/2024 10:15 AM EDT Office Visit Dermatology [facility] 200 [facility] [place] [address] Cal Jernigan MD [address] [facility] [address] 07/21/2024 1:45 PM EDT Office Visit Hematology/Oncology [facility] 200 [facility] [place] [phone] Dakota Armando MD 200 [facility] [place] [address] 07/24/2024 11:40 AM EDT Office Visit Family Practice [facility] [address] [place] [address] Sergio Barriga MD [address] [place] [address] Scheduled Orders Name Type Priority Associated Diagnoses Orde r Schedule LIPID PANEL WITH DIRECT LDL IF TG IS HIGH Lab Routine Encounter for long-term (current) use of medications Expected: 05/16/2024 (Approximate), Expires: 08/16/2024 COMPREHENSIVE METABOLIC PANEL Lab STAT 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) Every 3 Weeks for 4 Occurrences starting 02/24/2024 until 02/23/2025 COMPREHENSIVE METABOLIC PANEL Lab STAT 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) Every Month for 12 Occurrences starting 02/24/2024 until 02/23/2025 CBC WITH WBC DIFFERENTIAL Lab STAT 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) Every Month for 12 Occurrences starting 02/24/2024 until 02/23/2025 Scheduled Procedures Name Priority Associated Diagnoses Date/Ti me COLONOSCOPY FLEXIBLE PROXIMA L DIAGNOSTIC Recall History of adenomatous polyp of colon Scheduled Referrals Name Type Priority Associated Diagnoses Orde r Schedule PHARMACIST MEDS THERAPY MGMT REFERRAL OP Referral Within 10 days (routine) 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) Ordered: 02/24/2024 Health Maintenance Due Date Last Done Comments [...] this encounter Medical Devices Implanted Type Area Engineering Operations Leader Device Identifier Shelf Expiration Date Model / Serial / Lot Duraclip 16mm Xlg Repostn - [id number] Implanted:Qty : 1 on 07/17/2021 by Guillermo Jones DO at [place] [facility] [place] [employer] [id number] 01/10/2024 [id number] / / [id number] Stent Viabil Biliary 28cfb9ms - [id number] Implanted:Qty : 1 on 07/17/2021 by Guillermo Jones DO at [place] [facility] [place] [employer] REYNALDO [id number] 03/04/2024 [id number] / [id number] / [id number] Port Implant W/8f Poly Cath - [id number] Implanted:Qty : 1 on 09/13/2023 by Gary Rodriguez DO at OR [facility] Right: Chest CR BARD : PERIPHERAL VASCULAR [id number] 04/24/2025 [id number] / / [id number] documented as of this encounter Visit Diagnoses Diagnosis 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)- Primary Malignant neoplasm of body of pancreas Encounter for long-term (current) use of medications Encounter for long-term (current) use of other medications 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) Malignant 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 documented in this encounter Advance Directives Documents on File Type Date Recorded Patient Home Restoration Service Cleaner Expl anation Advance Directives and Living [...] Agen t (per Health Care Power of Inseam Trimming Machine Operator document) [email or web address] Temo Bela Sibling First Alternate Health Care Agent (per Health Care Power of Inseam Trimming Machine Operator document) Care Teams Bagger And Stock Handler Helper Relationship Specialty Start Date End Date Sergio Barriga MD [address] [place] [address] PCP - General Family Medicine 08/07/19 documented as of this encounter
--- OUTSIDE RECORDS SUMMARY | 2024-04-18 23:54 | External Medical Summary | Summary of Care ---
Author Name Unknown Organization [facility] Address [address] [facility] [place] [address] Phone [phone] Care Team Providers Care Full Service Vending Driver Name Role Phone Sergio Barriga MD Primary Care Provider + Reason for Visit * Reason Onset Date Comments Test Results Lab 02/25/2024 Encounter Details Date Type Department Care Team (Late st Contact Info) Description 02/25/2024 [facility] 200 [facility] [place] [phone] Dakota Armando MD 200 [facility] [place] [address] Test Results Lab Allergies Active Allergy Reactions Criticality Noted Date [...] mouth in the morning. 0 Active Pancrelipase (Yrc-Xrwp-Imsr) 55[address] UNIT Oral Capsule Delayed Release Particles (Creon 94535) 2 cap with meals, 1 with larger [...] -19) 10/16/2022 Coronary artery disease invo lving [place] coronary artery of [place]vas[place]ai heart without angina pectoris 08/20/2022 Overview: Severe [...] lipids WNL Factor V+heteroqygous. 04/10 colon-Dr Rafita [facility] 2 polyps 1 tubular adenoma. Kevin 5y 2013 sleep study [facility] WNL [address] Elena [facility] Essential hypertension with goal blood [...] WNL, antiphos lipids WNL Factor V+heteroqygous. FM IA-DGQU-BTEFV DIS NEC documented as of this encounter (statuses as of 02/25/2024) Immunizations Name Administration Dates Next Due COVID-19 mRNA, LNP-s, No Pre serve, 2-Dose Series ([employer]) 01/13/2022,07/21/2021,02/01/2021,01/04 COVID-19, MRNA-LNP, 23-24, P F, 30 MCG/0.3 mL, 12 YRS AND ABOVE, [facility]) 09/12/2023 Covid-19, Mrna, Lnp-s, Pf, B ivalent, [...] Telephone Encounter - Juan Smith RN - 02/25/2024 11:39 AM EDT Per Pharmacy, patient ANC 1.36, to receive Abraxane today with Gemzar. Per Dr. Dede goddard to proceed with Gemzar/Abraxane as planned. documented in this encounter Plan of Treatment Upcoming Encounters Date Type Department Care Team (Late st Contact Info) Description 02/25/2024 1:30 PM EDT Pharmacy Pharmacy Hematology Oncology [address] [address] [facility] Hem/Onc [address] [place] [address] Malignant neoplasm of pancreas, unspecified location of malignancy (HCC)* 02/27/2024 1:15 PM EDT Pharmacy Pharmacy Hematology Oncology [address] [address] [facility] Hem/Onc [address] [place] [address] 03/17/2024 9:00 AM EDT Office Visit Hematology/Oncology [facility] 200 [facility] [place], [place] [address] Amber Huizar CRNP [address] [facility] [place] [address] 07/20/2024 10:15 AM EDT Office Visit Dermatology [facility] 200 [facility] [place], [place] [address] Cal Jernigan MD 200 [facility] [place], [place] [address] 07/21/2024 1:45 PM EDT Office Visit Hematology/Oncology [facility] 200 [facility] [place] [address] Dakota Armando MD 200 [facility] [place] [address] 07/24/2024 11:40 AM EDT Office Visit Family Practice [facility] [address] [place] [address] Sergio Barriga MD 132 [facility] [place] [address] Scheduled Procedures Name Priority Associated Diagnoses Date/Ti [...] this encounter Medical Devices Implanted Type Area Academic Associate Device Identifier Shelf Expiration Date Model / Serial / Lot Duraclip 16mm Xlg Repostn - [id number] Implanted:Qty : 1 on 07/17/2021 by Guillermo Jones DO at [place] [facility] [place] [employer] [id number] 01/10/2024 [id number] / / [id number] Stent Viabil Biliary [id number] - [id number] Implanted:Qty : 1 on 07/17/2021 by Guillermo Jones DO at ENDOSCOPY [facility] [place] [employer] REYNALDO [id number] 03/04/2024 [id number] / [id number] / [id number] Port Implant W/8f Poly Cath - [id number] Implanted:Qty : 1 on 09/13/2023 by Gary Rodriguez DO at OR [facility] Right: Chest CR BARD : PERIPHERAL VASCULAR [id number] 04/24/2025 [id number] / / [id number] documented as of this encounter Advance Directives Documents on File Type Date Recorded Patient Sheet Rock Installation Helper Expl anation Advance Directives and Living Will [...] Agen t (per Health Care Power of Family Reunification Specialist document) [email or web address] [email or web address] First Alternate Health Care Agent (per Health Care Power of Family Reunification Specialist document) [email or web address] Care Teams Full Service Vending Driver Relationship Specialty Start Date End Date Sergio Barriga MD [address] [place] [address] PCP - General Family Medicine 08/07/19 documented as of this encounter
--- OUTSIDE RECORDS SUMMARY | 2024-04-18 23:54 | External Medical Summary | Summary of Care ---
Author Name Unknown Organization [facility] [address] [address] Phone [phone] Care Team Providers Care Pig Casting Machine Operator Name Role Phone Sergio Barriga MD Primary Care Provider + Reason for Visit * Reason Onset Date Comments Precert Future 02/14/2024 Gemzar/Abraxane/ Lumakras Encounter Details Date Type Department Care Team (Late st Contact Info) Description 02/14/2024 Telephone Hematology/Oncology [facility] [place] [address] [place] [phone] Dakota Armando MD [address] [place] [address] Precert Future (Gemzar/Abraxane/Lumakr as) Allergies Active Allergy [...] mouth in the morning. 0 Active Pancrelipase (Bdk-Ckdx-Vrso) 02383-337[address] UNIT Oral Capsule Delayed Release Particles (Creon 75872) 2 cap with meals, 1 with larger [...] -19) 10/16/2022 Coronary artery disease invo lving [place] coronary artery of [place] heart without angina pectoris 08/20/2022 Overview: Severe [...] lipids WNL Factor V+heteroqygous. 04/10 colon-Dr Eller [facility] 2 polyps 1 tubular adenoma. Kevin 5y 2013 sleep study [facility] WNL [address] Elena [facility] Essential hypertension with goal blood [...] WNL, antiphos lipids WNL Factor V+heteroqygous. FM PA-OALU-TQRQT DIS NEC documented as of this encounter (statuses as of 02/24/2024) Immunizations Name Administration Dates Next Due COVID-19 mRNA, LNP-s, No Pre serve, 2-Dose Series ([employer]) 01/13/2022,07/21/2021,02/01/2021,02/1 COVID-19, MRNA-LNP, 23-24, P F, 30 [...] encounter Miscellaneous Notes * Telephone Encounter - Karen Kerns OSA - 02/19/2024 11:42 AM EDT Scheduled pt and called left detailed message regarding * Telephone Encounter - Juan Smith RN - 02/19/2024 10:18 AM EDT Patient education completed. Consent signed today for all treatment. MTM- fyi regarding auth approval for [facility]- awaiting PFC review and copay assistance. Scheduling- [...] 9:30 AM EDT Laboratory Laboratory Sharif Kimball [place] [address] [facility] [place] [phone] Renee Kimball [place] [address] Sharif Barksdale [facility] [place] [address] 02/25/2024 10:30 AM EDT Hem/Onc Treatment Hematology/Oncology Treatment, [place] 200 [facility] [place] [phone] 02/25/2024 1:30 PM EDT Pharmacy Pharmacy Hematology Oncology [address] [place] [address] [facility] Hem/Onc [address] [place] [address] 03/17/2024 9:00 AM EDT Office Visit Hematology/Oncology [facility] [address] [place] [phone] Amber Huizar CRNP 400 [facility] [place] [address] 07/20/2024 10:15 AM EDT Office Visit Dermatology [facility] [address] [facility] [place] [address] Cal Jernigan MD [address] [facility] [place] [address] 07/21/2024 1:45 PM EDT Office Visit Hematology/Oncology [facility] [address] [place] [phone] Dakota Armando MD [address] [facility] [place] [address] 07/24/2024 11:40 AM EDT Office Visit Family Practice [facility] [address] [place] [address] Sergio Barriga MD [address] [facility] [address] [facility] [place] [address] Scheduled Orders Name Type Priority Associated Diagnoses [...] this encounter Medical Devices Implanted Type Area Executive Staff Assistant Device Identifier Shelf Expiration Date Model / Serial / Lot Duraclip 16mm Xlg [facility] [id number] Implanted:Qty : 1 on 07/17/2021 by Guillermo Jones DO at [facility] [employer]MED [place] [id number] 01/10/2024 [id number] / / [id number] Stent Viabil Biliary 98chx7ti - [id number] Implanted:Qty : 1 on 07/17/2021 by Guillermo Jones DO at [facility] [employer] [place] [id number] 03/04/2024 [id number] / [id number] / [id number] Port Implant W/8f Poly Cath - [id number] Implanted:Qty : 1 on 09/13/2023 by Gary Rodriguez DO at OR [facility] Right: Chest CR BARD : PERIPHERAL VASCULAR [id number] 04/24/2025 [id number] / / [id number] documented as of this encounter Visit Diagnoses Diagnosis 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 Healthcare Agents on File Name Relationship Healthcare Agent Relationship Communication Virginie Cramer Spouse Health Care Agen t (per Health Care Power of Drum Attendant document) [email or web address] Temo Bela Sibling First Alternate Health Care Agent (per Health Care Power of Drum Attendant document) Care Teams Pig Casting Machine Operator Relationship Specialty Start Date End Date Sergio Barriga MD [address] [place] [address] PCP - General Family Medicine 08/07/19 documented as of this encounter
--- OUTSIDE RECORDS SUMMARY | 2024-04-18 23:54 | External Medical Summary | Summary of Care ---
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 04/10 colon-Dr Eller [facility] 2 polyps 1 tubular adenoma. Kevin 5y 2013 sleep study [facility] WNL [address] Elena [facility] Essential hypertension with goal blood pressure less [...] WNL, antiphos lipids WNL Factor V+heteroqygous. FM MM-TVKR-SPSZF DIS NEC documented as of this encounter (statuses as of 02/25/2024) Immunizations Name Administration Dates Next Due COVID-19 mRNA, LNP-s, No Pre serve, 2-Dose Series ([employer]) 01/13/2022,07/21/2021,02/01/2021,01/04 COVID-19, MRNA-LNP, 23-24, P F, 30 MCG/0.3 mL, 12 YRS AND ABOVE, [facility] 09/12/2023 Covid-19, Mrna, Lnp-s, Pf, [...] Description 02/25/2024 10:30 AM EDT Hem/Onc Treatment Hematology/Oncology [facility] [place] [address] [place] [phone] Arrived 02/25/2024 1:30 PM EDT Pharmacy Pharmacy Hematology Oncology [address] [address] [facility] Hem/Onc [address] [place] [address] Malignant neoplasm of pancreas, unspecified location of malignancy (HCC)* 02/27/2024 1:15 PM EDT Pharmacy Pharmacy Hematology Oncology [address] [address] [facility] Hem/Onc [address] [place] [address] 03/17/2024 9:00 AM EDT Office Visit Hematology/Oncology [facility] 200 [place] [address] Amber Huizar CRNP [address] [place] [address] 07/20/2024 10:15 AM EDT Office Visit Dermatology [facility] 200 [facility] [place] [address] Cal Jernigan MD 200 [facility] [place] [address] 07/21/2024 1:45 PM EDT Office Visit Hematology/Oncology 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) 02/25/2024 9:25 AM EDT CA 19-9 Lab STAT 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) 02/25/2024 9:26 AM EDT Scheduled Procedures Name Priority [...] this encounter Medical Devices Implanted Type Area Leasing Director Device Identifier Shelf Expiration Date Model / Serial / Lot Duraclip 16mm Xlg Repostn - [id number] Implanted:Qty : 1 on 07/17/2021 by Guillermo Jones DO at ENDOSCOPY [facility] [employer] [place] [id number] 01/10/2024 [id number] / / [id number] Stent Viabil Biliary [id number] - [id number] Implanted:Qty : 1 on 07/17/2021 by Guillermo Jones DO at ENDOSCOPY [facility] [employer] [place] [id number] 03/04/2024 [id number] / [id number] / [id number] Port Implant W/8f Poly Cath - [id number] Implanted:Qty : 1 on 09/13/2023 by Gray Rodriguez DO at OR [facility] Right: Chest CR BARD : PERIPHERAL VASCULAR [id number] 04/24/2025 [id number] / / [id number] documented as of this encounter Procedures Procedure Name Priority Date/Time Associated Diagnosis Comments DIFFERENTIAL, AUTOMATED STAT 02/25/2024 9:25 AM EDT 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 56- Neutrophils % 28.7(L) 40.0 - 75.0 % 02/25/2024 9:32 AM EDT LAB[facility]ATORY [facility] 56- Lymphocytes % 38.9 18.0 - 42.0 % 02/25/2024 9:32 AM EDT LABORATORY [place] 56 Monocytes % 16.1(H) 1.0 - 11.0 % 02/25/2024 9:32 AM EDT LAB[facility]ATORY [facility] 56- Eosinophils % 12.9(H) 0.0 - 6.0 % 02/25/2024 9:32 AM EDT LAB[facility]ATORY [facility] [place] 56- Basophils % 3.4(H) 0.0 - 2.0 % 02/25/2024 9:32 AM EDT LABORATORY [place] [address] Absolute Neutrophils 1.36(L) 1.80 - 7.70 K/uL 02/25/2024 9:32 AM EDT LABORATORY [place] 56 Absolute Lymphocytes 1.84 1.00 - 4.80 K/ul 02/25/2024 9:32 AM EDT LABORATORY [facility] [place] 56-02 Absolute Monocytes 0.76 0.00 - 1.10 K/uL 02/25/2024 9:32 AM EDT LAB[facility]ATORY [facility] 56 Absolute Eosinophils 0.61 0.00 - 0.70 K/uL 02/25/2024 9:32 AM EDT LABORATORY [place] 5602 Absolute Basophils 0.16 0.00 - 0.20 K/uL 02/25/2024 9:32 AM EDT LABORATORY [place] 56 Blood Venous blood specimen / Unknown Venipuncture / Unknown 02/25/2024 9:25 AM EDT 02/25/2024 9:25 AM EDT Dakota Armando MD LAB BLOOD ORDERABLES [facility] [address] [place] [address] * (ABNORMAL) CBC (02/25/2024 9:25 AM EDT) WBC 4.73 4.00 - 10.80 K/uL 02/25/2024 9:32 AM EDT [facility] RBC 4.35 4.50 - 5.25 M/uL 02/25/2024 9:32 AM EDT [facility] HGB 12.6(L) 14.0 - 16.8 g/dL 02/25/2024 9:32 AM EDT [facility] HCT 40.5 40.0 - 48.4 % 02/25/2024 9:32 AM EDT [facility] MCV 93.1 82.0 - 99.5 fL 02/25/2024 9:32 AM EDT [facility] MCH 29.0 27.0 - 34.0 pg 02/25/2024 9:32 AM EDT [facility] MCHC 31.1 32.0 - 36.0 g/dL 02/25/2024 9:32 AM EDT [facility] RDW 19.5 11.5 - 15.5 % 02/25/2024 9:32 AM EDT [facility] PLT 280 140 - 400 K/uL 02/25/2024 9:32 AM EDT [facility] MPV 9.1 6.6 - 11.1 fL 02/25/2024 9:32 AM EDT [facility] Blood Venous blood specimen / Unknown Venipuncture / Unknown 02/25/2024 9:25 AM EDT 02/25/2024 9:25 AM EDT Dakota Armando MD LAB BLOOD ORDERABLES [facility] [address] [place] [address] [place] [address] documented in this encounter Visit Diagnoses Diagnosis 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) Malignant 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) Malignant neoplasm of body of pancreas Malignant neoplasm of pancreas, unspecified location of malignancy (HCC)- Primary documented in this encounter Advance Directives Documents on File Type Date Recorded Patient Embalmer/Funeral Director Expl anation Advance Directives and Living Will [...] Agen t (per Health Care Power of Recreation Therapy Aide document) [email or web address] Temo Bela Sibling First Alternate Health Care Agent (per Health Care Power of Recreation Therapy Aide document) [email or web address] Care Teams Electrician Control Equipment Relationship Specialty Start Date End Date Sergio Barriga MD [address] [place] [address] PCP - General Family Medicine 08/07/19 documented as of this encounter
--- OUTSIDE RECORDS SUMMARY | 2024-04-18 23:54 | External Medical Summary ---
Author Name Unknown Address Unknown Organization K01:[place] [facility] [place] [address] [place] [address] Laboratory Report Ordering Provider Test Date Status JOSE ROY 02/25/2024 09:26:34 Final Observation Date Value Abnormality Reference (Units ) Status Cancer Ag 19-9 02/25/2024 09:26:34 538.3 Above high norm al <35.0 (U/mL) Final Performing Location LABORATORY [facility] - [address] [place] [address]
--- OUTSIDE RECORDS SUMMARY | 2024-04-18 23:54 | External Medical Summary | Summary of Care ---
Author Name Unknown Organization [facility] Address [address] [place] [address] Phone [phone] Care Team Providers Care Software Support Analyst Name Role Phone Sergio Barriga MD Primary Care Provider + Encounter Details Date Type Department Care Team (Late st Contact Info) Description 02/18/2024 Telephone Hematology/Oncology [facility] [place] [address] [facility] [place] [phone] Dakota Armando MD [address] [facility] [place] [address] Allergies Active Allergy Reactions Criticality Noted Date [...] mouth in the morning. 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 04/10 colon-[address] [facility] 2 polyps 1 tubular adenoma. Kevin 6y [address] [facility] WNL [address] [facility] Essential hypertension with goal blood pressure [...] WNL, antiphos lipids WNL Factor V+heteroqygous. FM YS-POMS-UDUCR DIS NEC documented as of this encounter (statuses as of 02/24/2024) Immunizations Name Administration Dates Next Due COVID-19 mRNA, LNP-s, No Pre serve, 2-Dose Series ([employer]) 01/13/2022,07/21/2021,02/01/2021,01/04 COVID-19, MRNA-LNP, 23-24, P F, 30 [...] 12:52 PM EDT Sotorasib RX sent to [facility] Time Spent on Encounter: 6 - 10 [...] assistance: Over income for pharmacy reji. Called [employer] and had Pt screened for assistance. Applications mailed: : YES, emailed to [email or web address] Follow up: 02/26/2024 Thank you, Shilpa Pandya Medication Dialysis Tech 02/24/2024, 10:45 AM * Telephone Encounter - Zaida Swift OSA - 02/18/2024 10:50 AM EDT [facility] Patient Assistance Request: Medication name: LUMAKRAS 120 MG TABS Insurance? medicare d Co-pay amount: [phone] Action needed: new funding inquiry Target ship date (if applicable): N/A IF HEM/ONC: Confirm this encounter is routed to [id number]: Yes All other department requests should be flagged in referral. Confirm encounter department selected is for prescribing physician: Yes If URGENT: Send TEAMS message to appropriate mutuel department manager (see "Patient Assistance Guide" - ROUTING POOLS:[facility] on shared drive): [] Urgent message sent to: Thank you, CHATO Spear [facility] 02/18/2024,10:50 AM documented in this encounter Plan of Treatment Upcoming Encounters Date Type Department Care Team (Latest Contact Info) Description 02/25/2024 9:30 AM EDT Laboratory Laboratory [facility] 200 [place] [phone] [place], [address] [place] [address] 02/25/2024 10:30 AM EDT Hem/Onc Treatment Hematology/Oncology Treatment, [address] [address] 02/25/2024 1:30 PM EDT Pharmacy Pharmacy Hematology Oncology [address] [address] [facility] Hem/Onc [address] [place] [address] Malignant neoplasm of pancreas, unspecified location of malignancy (HCC)* 02/27/2024 1:15 PM EDT Pharmacy Pharmacy Hematology Oncology [address] [place] [address] [facility] Hem/Onc [address] [place] [address] 03/17/2024 9:00 AM EDT Office Visit Hematology/Oncology [facility] [address] [place] [phone] Amber Huizar CRNP [address] [facility] [place] [address] 07/20/2024 10:15 AM EDT Office Visit Dermatology [facility] [address] [facility] [place] [address] Cal Jernigan MD [address] [facility] [place] [address] 07/21/2024 1:45 PM EDT Office Visit Hematology/Oncology [facility] [address] [place] [phone] Dakota Armando MD 200 [facility] [place] [address] 07/24/2024 11:40 AM EDT Office Visit Family Practice [facility] 132 [facility] [place] [address] Sergio Barriga MD 132 [facility] [place] [address] Scheduled Procedures Name Priority Associated Diagnoses Date/Ti [...] this encounter Medical Devices Implanted Type Area Armature Bander Device Identifier Shelf Expiration Date Model / Serial / Lot Duraclip 16mm Xlg Repostn - [id number] Implanted:Qty : 1 on 07/17/2021 by Guillermo Jones DO at ENDOSCOPY [facility] [employer] RE[employer] [id number] 01/10/2024 [id number] / / [id number] Stent Viabil Biliary [id number] - [id number] Implanted:Qty : 1 on 07/17/2021 by Guillermo Jones DO at ENDOSCOPY [facility] [employer] [id number] 03/04/2024 [id number] / [id number] / [id number] Port Implant W/8f Poly Cath - [id number] Implanted:Qty : 1 on 09/13/2023 by Gary Rodriguez DO at OR [facility] Right: Chest CR BARD : PERIPHERAL VASCULAR [id number] 04/24/2025 [id number] / / [id number] documented as of this encounter Visit Diagnoses Diagnosis 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)- Primary Malignant 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 Malignant neoplasm of pancreas, unspecified location of malignancy (HCC)- Primary documented in this encounter Advance Directives Documents on File Type Date Recorded Patient Qa Auditor Expl anation Advance Directives and Living Will [...] Agen t (per Health Care Power of Envelope Cutter document) [email or web address] Temo [email or web address] Sibling First Alternate Health Care Agent (per Health Care Power of Envelope Cutter document) [email or web address] Care Teams Software Support Analyst Relationship Specialty Start Date End Date Sergio Barriga MD [address] [place] [address] PCP - General Family Medicine 08/07/19 documented as of this encounter
--- OUTSIDE RECORDS SUMMARY | 2024-04-18 23:54 | External Medical Summary | Summary of Care ---
Author Name Unknown Organization [facility] Address [address] [place] [address] Phone [phone] Care Team Providers Care Centerless Grinder Name Role Phone Sergio Barriga MD Primary Care Provider + Reason for Visit * Reason Comments Medication Management Encounter Details Date Type Department Care Team (Late st Contact Info) Description 02/25/2024 1:30 PM EDT Pharmacy Pharmacy Hematology Oncology [facility] [address] [place] [address] [facility] Hem[facility]Onc [address] [place], [place] [id number] Malignant neoplasm of pancreas, unspecified location of [...] mouth in the morning. 0 Active Pancrelipase (Imc-Bkeu-Akjd) 47032-67635 UNIT Oral Capsule Delayed Release Particles (Creon 43586) 2 cap with meals, 1 with larger [...] -19) 10/16/2022 Coronary artery disease invo lving [place] coronary artery of [place] heart without angina pectoris 08/20/2022 Overview: Severe [...] lipids WNL Factor V+heteroqygous. 04/10 colon-Dr Eller [facility] 2 polyps 1 tubular adenoma. Kevin 5y 2013 sleep study [facility] WNL [address] Elena [facility] Essential hypertension with goal blood [...] WNL, antiphos lipids WNL Factor V+heteroqygous. FM XU-THGD-EGZTG DIS NEC documented as of this encounter (statuses as of 02/24/2024) Immunizations Name Administration Dates Next Due COVID-19 mRNA, LNP-s, No Pre serve, 2-Dose Series (CO2Stats) 01/13/2022,07/21/2021,02/01/2021,01/04 COVID-19, MRNA-LNP, 23-24, P F, 30 MCG/0.3 mL, 12 YRS AND ABOVE, IM ([facility]) 09/12/2023 Covid-19, Mrna, Lnp-s, Pf, B [...] this encounter Progress Notes * Jen Teixeira, [facility] - 02/24/2024 7:53 AM EDT MEDICATION THERAPY MANAGEMENT SOTORASIB TREATMENT STATUS NOTE Rafael Cramer [phone] Patient Phone Numbers Communication: Chart review Treatment: Medication: Sotorasib (Lumakras) Indication/Staging/Diagnosis Code: met pancreatic cancer, 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 Gina Armando Assessment and Plan: Yes/no Date Action Taken [place] plan entered? yes 02/14/24 Consent completed? yes 02/19/24 Intro/med rec completed? N/A Previously enrolled in [facility] Precert completed? yes 02/18/24 Approved Test claim completed? yes 02/18/24 [facility] - $3,323.53 Financial assistance needed? yes 02/19/24 [facility] review pending Physician signature? yes 02/21/24 Rx released? yes 02/24/24 Education completed? Sotorasib RX sent to [facility] who will help with financial assistance Will follow up in 3 days Patient assistance [facility] will contact patient once med shipped/received to complete medication education Please refer to initial intake note for detailed review of regimen and patient- specific education points Jen Teixeira, PharmD, BCOP Clinical Pharmacist, [facility] Oral Chemotherapy [facility] 02/24/2024, 7:54 AM Time Spent on Encounter: 6 - 10 minutes Encounter Group: Oncology Encounter Interventions Item Category: Oral Chemotherapy Sotorasib Problem/Rationale: [place] Plan Review: Clinical Review Pharmacist Intervention(s): Medication prescribed Magnitude of Intervention: Modification of medication for asymtomatic patients (Level 2) documented in this encounter Plan of Treatment Upcoming Encounters Date Type Department Care Team (Late st Contact Info) Description 02/25/2024 9:30 AM EDT Laboratory Laboratory [facility] Re[place] [address] [place] [phone] Renee Kimball [address] [place] [address] 02/25/2024 10:30 AM EDT Hem/Onc Treatment Hematology/Oncology [address] [place] [phone] 02/27/2024 1:45 PM EDT Pharmacy Pharmacy Hematology Oncology [address] [address] [facility]c [address] [place] [address] 03/17/2024 9:00 AM EDT Office Visit Hematology/Oncology [facility] [place] [address] [place] [phone] Amber Huizar CRNP 400 [facility] [place] [phone] 07/20/2024 10:15 AM EDT Office Visit Dermatology [facility] [address] [place] [address] Cal Jernigan MD [address] [place] [address] [place] [address] 07/21/2024 1:45 PM EDT Office Visit Hematology/Oncology [facility] 200 [facility] [place], [place] [address] Dakota Armando MD 200 [facility] [place] [address] 07/24/2024 11:40 AM EDT Office Visit Family Practice [facility] [address] [place] [address] Sergio Barriga MD [address] [place] [address] Scheduled Procedures Name Priority Associated Diagnoses Date/Ti [...] this encounter Medical Devices Implanted Type Area Oracle Bpm Consultant Device Identifier Shelf Expiration Date Model / Serial / Lot Duraclip 16mm Xlg Repostn - [id number] Implanted:Qty : 1 on 07/17/2021 by Guillermo Jones DO at ENDOSCOPY [facility] [employer] [id number] 01/10/2024 [id number] / / [id number] Stent Viabil Biliary [id number] - [id number] Implanted:Qty : 1 on 07/17/2021 by Guillermo Jones DO at ENDOSCOPY [facility] [employer] [id number] 03/04/2024 [id number] / [id number] / [id number] Port Implant W/8f Poly Cath - [id number] Implanted:Qty : 1 on 09/13/2023 by Gary Rodriguez DO at OR [facility] Right: Chest CR BARD : PERIPHERAL VASCULAR [id number] 04/24/2025 [id number] / / [id number] documented as of this encounter Visit Diagnoses Diagnosis Malignant neoplasm of pancreas, unspecified location of malignancy (HCC)- Primary documented in this encounter Advance Directives Documents on File Type Date Recorded Patient Sound Effects Supervisor Expl anation Advance Directives and Living [...] Agen t (per Health Care Power of Skein Winder document) [email or web address] [email or web address] [email or web address] First Alternate Health Care Agent (per Health Care Power of Skein Winder document) Care Teams Centerless Grinder Relationship Specialty Start Date End Date Sergio Barriga MD [address] [place] [address] PCP - General Family Medicine 08/07/19 documented as of this encounter
--- OUTSIDE RECORDS SUMMARY | 2024-04-18 23:55 | External Medical Summary | Summary of Care ---
Author Name Unknown Organization [facility] Address [address] [place] [address] Phone [phone] Care Team Providers Care Marine Tower Operator Name Role Phone Sergio Barriga MD Primary Care Provider + Reason for Visit * Reason Onset Date Comments Medication Update 02/14/2024 Encounter Details Date Type Department Care Team (Late st Contact Info) Description 02/14/2024 Telephone Pharmacy Hematology Oncology [address] [phone] Jen Teixeira, [facility] [address] [place] [address] Medication Update Allergies Active Allergy Reactions Criticality Noted Date Comments Lisinopril Cough Low 08/07/2019 documented as of this encounter (statuses as of 02/14/2024) Medications Medication Sig Dispensed Refills Start Date End Date Status Boost 100 Calorie Smart Oral Liquid Take by mouth. 0 Act miley Multi Vitamin Daily Oral Tablet Take by mouth. 0 Act miley Aspirin 81 MG Oral Tablet Delayed Release Take 1 Tablet by mouth in the morning. 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 04/10 colon-Dr Case [facility] 2 polyps 1 tubular adenoma. Kevin 6y 2013 sleep study [facility] WNL [address] Elena [facility] Essential hypertension with goal blood pressure less [...] as of this encounter (statuses as of 02/14/2024) Resolved Problems Problem Noted Date Diagnosed Date [...] WNL, antiphos lipids WNL Factor V+heteroqygous. FM CV-KYCW-KAOGV DIS NEC documented as of this encounter (statuses as of 02/14/2024) Immunizations Name Administration Dates Next Due COVID-19 mRNA, LNP-s, No Pre serve, 2-Dose Series ([employer]) 01/13/2022,07/21/2021,02/01/2021,12/26 COVID-19, MRNA-LNP, 23-24, P F, 30 MCG/0.3 mL, 12 YRS AND ABOVE, IM ([facility] [facility]) 09/12/2023 Covid-19, Mrna, Lnp-s, Pf, B ivalent, 30 Mcg, IM, 12 yrs and above ([employer] Systems) 08/16/2022 HEP A - Hepatitis A [...] Miscellaneous Notes * Telephone Encounter - Sergio Barriga MD - 02/14/2024 4:46 PM EDT Patient has been taking pantoprazole due to hx upper airway cough. I'm ok to stop it if needed for his cancer treatment. Cc: Dr Kaplan, Dr Armando, Anup Teixeira * Telephone Encounter - Jen Teixeira, [facility] - 02/14/2024 3:59 PM EDT A drug interaction was identified during initial review of new therapy. Please review the information below and provide guidance on how we should proceed. Interacting Drugs: Pantoprazole / Sotorasib Interaction: Inhibitors of the Proton Pump (PPIs and PCABs) may decrease the serum concentration ofSotorasib Severity: Category X - avoid combination Recommendation: Avoid coadministration of sotorasib and proton pump inhibitors, potassium- competitive acid blockers, or histamine H2 receptor antagonists. If coadministration of sotorasib and gastric acid suppressing medications cannot be avoided, use antacids instead of histamine H2 receptor antagonists (H2RAs), p roton pump inhibitors (PPIs), or potassium-competitive acid blockers (PCABs) and administer sotorasib 4 hours before or 10 hours after oral antacid administration Reference (if available): 1. Lumakras (sotorasib) [prescribing information]. [place], [place]: [employer]; March 2021. Jen Teixeira, PharmD, BCOP Clinical Pharmacist, [facility] Oral Chemotherapy [facility] 02/14/2024, 4:00 PM documented in this encounter Plan of Treatment Upcoming Encounters Date Type Department Care Team (Late st Contact Info) Description 02/19/2024 9:15 AM EDT Office Visit Hematology/Oncology [facility] [address] [place] [address] Dakota Armando MD 200 [facility] [place] [phone] 02/19/2024 9:45 AM EDT Nurse Only Hematology/Oncology [facility] [place] [address] [place] [address] [place], Nurse Hem Onc [facility] [place] [address] 02/19/2024 1:30 PM EDT Pharmacy Pharmacy Hematology Oncology [facility] [address] [place] [address] [facility] Hem/Onc [address] [place] [address] 03/17/2024 9:00 AM EDT Office Visit Hematology/Oncology [facility] [address] [place] [address] Amber Huizar CRNP [address] [place] [address] 07/20/2024 10:15 AM EDT Office Visit Dermatology [facility] [address] [place] [address] Cal Jernigan MD [address] [place] [address] 07/21/2024 1:45 PM EDT Office Visit Hematology/Oncology [facility] [place] 200 [facility] [place], [place] [phone] Dakota Armando MD 200 [facility] [place] [address] 07/24/2024 11:40 AM EDT Office Visit [facility] [address] [place] [address] Sergio Barriga MD [address] [place] [address] Scheduled Procedures Name Priority Associated Diagnoses Date/Ti [...] this encounter Medical Devices Implanted Type Area Assistant Controller Device Identifier Shelf Expiration Date Model / Serial / Lot Duraclip 16mm Xlg Repostn - [id number] Implanted:Qty : 1 on 07/17/2021 by Guillermo Jones DO at [facility]OSCOPY [facility] [employer] [id number] 01/10/2024 [id number] / / [id number] Stent Viabil Biliary [id number] - [id number] Implanted:Qty : 1 on 07/17/2021 by Guillermo Jones DO at ENDOSCOPY [facility] [email or web address] REYNALDO [id number] 03/04/2024 [id number] / [id number] / [id number] Port Implant W/8f Poly Cath - [id number] Implanted:Qty : 1 on 09/13/2023 by Gary Rodriguez DO at OR [facility] Right: Chest CR BARD : PERIPHERAL VASCULAR [id number] 04/24/2025 [id number] / / [id number] documented as of this encounter Advance Directives Documents on File Type Date Recorded Patient Head Orthopedic Team Physician Expl anation Advance Directives and Living Will [...] Agen t (per Health Care Power of Employment Clerk document) [email or web address] Sibling First Alternate Health Care Agent (per Health Care Power of Employment Clerk document) Care Teams Marine Tower Operator Relationship Specialty Start Date End Date Sergio Barriga MD [address] [place] [address] PCP - General Family Medicine 08/07/19 documented as of this encounter
--- OUTSIDE RECORDS SUMMARY | 2024-04-18 23:55 | External Medical Summary | Summary of Care ---
Author Name Unknown Organization [facility] Address [address] [place] [address] Phone [phone] Care Team Providers Care Award Machine Operator Name Role Phone Sergio Barriga MD Primary Care Provider + Reason for Visit * Reason Onset Date Comments Medication Update 02/21/2024 Encounter Details Date Type Department Care Team (Late st Contact Info) Description 02/21/2024 Telephone Pharmacy Hematology Oncology [place] [address] [place] [address] Randa Castaneda, [address] [place] [address] Medication Update Allergies Active Allergy Reactions Criticality [...] mouth in the morning. 0 Active Pancrelipase (Xyq-Nzho-Cgqb) [address]4529-[address] UNIT Oral Capsule Delayed Release Particles (Creon 96518) 2 cap with meals, 1 with larger [...] -19) 10/16/2022 Coronary artery disease invo lving [place] coronary artery of [place] heart without angina pectoris 08/20/2022 Overview: Severe [...] 2013 sleep study [facility] WNL [address] Elena [facility] [...] WNL, antiphos lipids WNL Factor V+heteroqygous. FM SN-AZAF-KOMKQ DIS NEC documented as of this encounter (statuses as of 02/21/2024) Immunizations Name Administration Dates Next Due COVID-19 mRNA, LNP-s, No Pre serve, 2-Dose Series ([employer]) 01/13/2022,07/21/2021,02/01/2021,01/04 COVID-19, MRNA-LNP, 23-24, P F, 30 MCG/0.3 mL, 12 YRS AND ABOVE, IM ([facility]) 09/12/2023 Covid-19, Mrna, Lnp-s, Pf, B ivalent, 30 Mcg, IM, 12 yrs and above (One Public) 08/16/2022 HEP A - Hepatitis A (Adult [...] encounter Miscellaneous Notes * Telephone Encounter - Randa Castaneda RPh - 02/21/2024 5:03 PM EDT Entered in error documented in this encounter Plan of Treatment Upcoming Encounters Date Type Department Care Team (Late st Contact Info) Description 02/25/2024 9:30 AM EDT Laboratory Laboratory [facility] [place] [address] [address] [place] [phone] [place] [address] [address] [place] [address] 02/25/2024 10:30 AM EDT Hem/Onc Treatment Hematology/Oncology [facility], [place] [facility] [phone] 02/25/2024 1:30 PM EDT Pharmacy Pharmacy Hematology Oncology [facility] [address] [place] [address] [facility] Hem/Onc [address] [place] [address] 03/17/2024 9:00 AM EDT Office Visit Hematology/Oncology [facility] [address] [place] [phone] Amber Huizar CRNP [address] [place], [place] [address], [place] [address] 07/20/2024 10:15 AM EDT Office Visit Dermatology [facility] 200 [facility] [place], [place] [address] Cal Jernigan MD 200 [facility] [place] [address] 07/21/2024 1:45 PM EDT Office Visit Hematology/Oncology [facility] 200 [facility] [place] [phone] Dakota Armando MD 200 [facility] [place], [place] [address] 07/24/2024 11:40 AM EDT Office Visit Family Practice [facility] [address] [place] [address] Sergio Barriga MD [address] [facility] [place] [address] Scheduled Procedures Name Priority Associated Diagnoses Date/Ti [...] this encounter Medical Devices Implanted Type Area Amusement Equipment Operator Device Identifier Shelf Expiration Date Model / Serial / Lot Duraclip 16mm Xlg Repostn - [id number] Implanted:Qty : 1 on 07/17/2021 by Guillermo Jones DO at [facility]COPY [facility] [employer] [id number] 01/10/2024 [id number] / / [id number] Stent Viabil Biliary [id number] - [id number] Implanted:Qty : 1 on 07/17/2021 by Guillermo Jones DO at [facility] [employer] [id number] 03/04/2024 [id number] / [id number] / [id number] Port Implant W/8f Poly Cath - [id number] Implanted:Qty : 1 on 09/13/2023 by Gary Rodriguez DO at OR [facility] Right: Chest CR BARD : PERIPHERAL VASCULAR [id number] 04/24/2025 [id number] / / [id number] documented as of this encounter Advance Directives Documents on File Type Date Recorded Patient Carbon Setter Expl anation Advance Directives and Living Will [...] Agen t (per Health Care Power of Office Machine Inspector document) [email or web address] [email or web address] First Alternate Health Care Agent (per Health Care Power of Office Machine Inspector document) .[employer] Care Teams Award Machine Operator Relationship Specialty Start Date End Date Sergio Barriga MD [address] [place] [address] PCP - General Family Medicine 08/07/19 documented as of this encounter
--- OUTSIDE RECORDS SUMMARY | 2024-04-18 23:55 | External Medical Summary | Summary of Care ---
Author Name Unknown Organization [facility] Address [address] [facility] [address] Phone [phone] Care Team Providers Care Web Content Director Name Role Phone Sergio Barriga MD Primary Care Provider + Reason for Visit * Reason Onset Date Comments Precert Future 02/14/2024 Gemzar/Abraxane/ Lumakras Encounter Details Date Type Department Care Team (Late st Contact Info) Description 02/14/2024 Telephone Hematology/Oncology [facility] [place] [address] [place] [phone] Dakota Armando MD [address] [place] [address] Precert Future (Gemzar/Abraxane/Lumakr as) Allergies Active Allergy Reactions Criticality Noted Date Comments Lisinopril Cough Low 08/07/2019 documented as of this encounter (statuses as of 02/19/2024) Medications Medication Sig Dispensed Refills Start Date End Date Status Boost 100 Calorie Smart Oral Liquid Take by mouth. 0 Act miley Multi Vitamin Daily Oral Tablet Take by mouth. 0 Act miley Aspirin 81 MG Oral Tablet Delayed Release Take 1 Tablet by mouth in the morning. 0 Active Pancrelipase (Kfx-Ggqr-Maod) 08588-[address] UNIT Oral Capsule Delayed Release Particles (Creon 97997) 2 cap with meals, 1 with larger [...] as of this encounter (statuses as of 02/19/2024) Active Problems Problem Noted Date Diagnosed Date Malignant neoplasm of body of pancreas 3 Metastasis to liver 08/30/2023 Encounter for antineoplastic chemotherapy 2022 History of carcinoma of pancreas 07/18/2023 Post-viral cough syndrome 07/09/2023 Upper airway cough syndrome 07/09/2023 History of 2019 novel coronavirus disease (COVID -19) 10/16/2022 Coronary artery disease invo lving [place] coronary artery of [place] heart without angina pectoris 08/20/2022 Overview: Severe [...] lipids WNL Factor V+heteroqygous. 04/10 colon-Dr Eller [facility] 2 polyps 1 tubular adenoma. Kevin 6y 2013 sleep study [facility] WNL [address] Elena [facility] Essential hypertension with goal blood pressure less [...] as of this encounter (statuses as of 02/19/2024) Resolved Problems Problem Noted Date Diagnosed Date [...] WNL, antiphos lipids WNL Factor V+heteroqygous. FM YM-FOOA-KKEOA DIS NEC documented as of this encounter (statuses as of 02/19/2024) Immunizations Name Administration Dates Next Due COVID-19 mRNA, LNP-s, No Pre serve, 2-Dose Series ([id number]) 01/13/2022,07/21/2021,02/01/2021,02/1 COVID-19, MRNA-LNP, 23-24, P F, 30 [...] treatment. MTM- fyi regarding auth approval for [facility]- awaiting PFC review and copay assistance. [...] Team (Late st Contact Info) Description 02/19/2024 1:30 PM EDT Pharmacy Pharmacy Hematology Oncology [facility] [address] [place] [address] [facility] Hem/Onc [address] [place] [address] 02/25/2024 9:30 AM EDT Laboratory Laboratory [facility] Shaina Garcia [address] [place], [place] [phone] [place] [address] [place] [address] 02/25/2024 10:30 AM EDT [facility] [address] [facility] [address] [place], [place] [phone] 03/17/2024 9:00 AM EDT Office [facility]cology [facility] [address] [place] [address] Amber Huizar CRNP [address] [facility] [place] [address] 07/20/2024 10:15 AM EDT Office Visit Dermatology [facility] 200 [facility] [place] [address] Cal Jernigan MD 200 [facility] [place], [place] [address] 07/21/2024 1:45 PM EDT Office Visit [facility]ematology[facility]Oncology [facility] 200 [facility] [place] [phone] Dakota Armando MD 200 [facility] [place], [place] [address] 07/24/2024 11:40 AM EDT Office Visit Family Practice [facility] 132 [facility] [place] [address] Sergio Barriga MD 132 [facility] [place] [address] Scheduled Orders Name Type Priority Associated Diagnoses [...] this encounter Medical Devices Implanted Type Area Mint Wafer Depositor Device Identifier Shelf Expiration Date Model / Serial / Lot Duraclip 16mm Xlg [facility] - [id number] Implanted:Qty : 1 on 07/17/2021 by Guillermo Jones DO at ENDOSCOPY [facility] [employer] REY[employer] [id number] 01/10/2024 [id number] / / [id number] Stent Viabil Biliary [id number] - [id number] Implanted:Qty : 1 on 07/17/2021 by Guillermo Jones DO at ENDOSCOPY [facility] [employer] [id number] 03/04/2024 [id number] / [id number] / [id number] Port Implant W/8f Poly Cath - [id number] Implanted:Qty : 1 on 09/13/2023 by Gary Rodriguez DO at OR [facility] Right: Chest CR BARD : PERIPHERAL VASCULAR [id number] 04/24/2025 [id number] / / [id number] documented as of this encounter Visit Diagnoses Diagnosis 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)- Primary Malignant neoplasm of body of pancreas documented in this encounter Advance Directives Documents on File Type Date Recorded Patient Radiology Therapist Expl anation Advance Directives and Living [...] Agen t (per Health Care Power of Emu Farm Worker document) [email or web address] Temo Bela Sibling First Alternate Health Care Agent (per Health Care Power of Emu Farm Worker document) [email or web address] Care Teams Web Content Director Relationship Specialty Start Date End Date Sergio Barriga MD [address] [place] [address] PCP - General Family Medicine 08/07/19 documented as of this encounter
--- OUTSIDE RECORDS SUMMARY | 2024-04-18 23:55 | External Medical Summary | Summary of Care ---
Author Name Unknown Organization [facility] Address [address] [place] [address] Phone [phone] Care Team Providers Care Mental Health Social Worker Name Role Phone Sergio Barriga MD Primary Care Provider + Reason for Visit * Reason Comments Medication Management Encounter Details Date Type Department Care Team (Late st Contact Info) Description 02/19/2024 1:30 PM EDT Pharmacy Pharmacy Hematology Oncology [facility] [address] [place] [address] [facility] [place], [facility] Hem/Onc [address], [place] [id number] Malignant neoplasm of pancreas, unspecified location of malignancy (HCC)* Allergies Active Allergy Reactions Criticality Noted Date Comments Lisinopril Cough Low 08/07/2019 documented as of this encounter (statuses as of 02/20/2024) Medications Medication Sig Dispensed Refills Start Date End Date Status Boost 100 Calorie Smart Oral Liquid Take by mouth. 0 Act miley Multi Vitamin Daily Oral Tablet Take by mouth. 0 Act miley Aspirin 81 MG Oral Tablet Delayed Release Take 1 Tablet by mouth in the morning. 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 08/30/2023 Encounter for antineoplastic chemotherapy 2022 History of carcinoma of pancreas 07/18/2023 Post-viral cough syndrome 07/09/2023 Upper airway cough syndrome 07/09/2023 History of 2019 novel coronavirus disease (COVID -19) 10/16/2022 Coronary artery disease invo lving [place] coronary artery of [place] heart without angina pectoris 08/20/2022 Overview: Severe [...] 04/10 colon-Dr Eller [facility] 2 polyps [...] as of this encounter (statuses as of 02/20/2024) Resolved Problems Problem Noted Date Diagnosed Date [...] WNL, antiphos lipids WNL Factor V+heteroqygous. FM IA-JISD-NZYKE DIS NEC documented as of this encounter (statuses as of 02/20/2024) Immunizations Name Administration Dates Next Due COVID-19 mRNA, LNP-s, No Pre serve, 2-Dose Series ([employer]) 01/13/2022,07/21/2021,02/01/2021,01/04 COVID-19, MRNA-LNP, 23-24, P F, 30 MCG/0.3 mL, 12 YRS AND ABOVE, IM (Neomatrix-Comirnatlatakoo) 09/12/2023 Covid-19, Mrna, Lnp-s, Pf, B ivalent, 30 Mcg, IM, 12 yrs and above ([employer]) 08/16/2022 HEP A - Hepatitis A (Adult [...] this encounter Progress Notes * Daphne Weber, frame bander - 02/19/2024 9:51 AM EDT MEDICATION THERAPY MANAGEMENT SOTORASIB TREATMENT STATUS NOTE Rafael Bowserenrique [phone] Patient Phone Numbers Communication: Chart review Treatment: Medication: Sotorasib (Lumakras) Indication/Staging/Diagnosis Code: met pancreatic cancer, KRAS G12C mutation / C25.1 Dose: 960mg daily Administration: +/- food Start Date: TBD Primary Cruise Coordinator/Oncologist: Dr. Gina Armando Assessment and Plan: Hugo plan uploaded and sent to Dr. Armando for signature Yes/no Date Action Taken Hugo plan entered? yes 02/14/24 Consent completed? yes 02/19/24 Intro/med rec completed? N/A Previously enrolled in [facility] Precert completed? yes 02/18/24 Approved Test claim completed? yes 02/18/24 GSP - $3,323.53 Financial assistance needed? yes Physician signature? no Rx released? no Education completed? Will follow up in 2 days Physician signature, Patient assistance & Rx release [facility] will contact patient once med shipped/received to complete medication education Please refer to initial intake note for detailed review of regimen and patient- specific education points Daphne Weber, frame bander Lodging Facilities Manager Hematology Oncology Oral Chemotherapy Clinic Medication Therapy Disease Management [facility] 02/19/24,9:56 AM Time Spent on Encounter: < 5 minutes Encounter Group: Oncology Encounter Interventions Item Category: Oral Chemotherapy Sotorasib documented in this encounter Plan of Treatment Upcoming Encounters Date Type Department Care Team (Late st Contact Info) Description 02/21/2024 1:30 PM EDT Pharmacy Pharmacy Hematology Oncology [facility] [address] [place] [address] [facility] [place] Hem/Onc [address] [place] [address] 02/25/2024 9:30 AM EDT Laboratory Laboratory [facility] [place] [address] [place] [phone] [facility] [address] [place] [facility] [place] [address] 02/25/2024 10:30 AM EDT [facility] [address] [place] [phone] 03/17/2024 9:00 AM EDT Office Visit Hematology/Oncology [facility] Rehana [place] [address] [place] [phone] Amber Huizar CRNP [address] [place] [address] 07/20/2024 10:15 AM EDT Office Visit Dermatology [facility] [place] [address] [place] [address] Cal Jernigan MD [address] [place] [address] 07/21/2024 1:45 PM EDT Office Visit Hematology/Oncology [facility] Rehana [place] [address] [place] [phone] Dakota Armando MD [address] [place] [address] 07/24/2024 11:40 AM EDT Office Visit Family Practice [facility] [address] [place] [address] Sergio Barriga MD [address] [place] [address] Scheduled Procedures Name Priority Associated Diagnoses Date/Ti [...] this encounter Medical Devices Implanted Type Area Design Assembler Device Identifier Shelf Expiration Date Model / Serial / Lot Duraclip 16mm Xlg Repostn - [id number] Implanted:Qty : 1 on 07/17/2021 by Guillermo Jones DO at [place] [facility] [place] Organically [employer] REYNALDO [id number] 01/10/2024 [id number] / / [id number] Stent Viabil Biliary [id number] - [id number] Implanted:Qty : 1 on 07/17/2021 by Guillermo Jones DO at [facility] [place] [employer] REYNALDO [id number] 03/04/2024 [id number] / [id number] / [id number] Port Implant W/8f Poly Cath - [id number] Implanted:Qty : 1 on 09/13/2023 by Gary Rodriguez DO at OR [facility] Right: Chest CR BARD : PERIPHERAL VASCULAR [id number] 04/24/2025 [id number] / / [id number] documented as of this encounter Visit Diagnoses Diagnosis Malignant neoplasm of pancreas, unspecified location of malignancy (HCC)- Primary documented in this encounter Advance Directives Documents on File Type Date Recorded Patient Home Companion Expl anation Advance Directives and Living Will [...] Agen t (per Health Care Power of Inclusion Specialist document) [email or web address] Sibling First Alternate Health Care Agent (per Health Care Power of Inclusion Specialist document) Care Teams Mental Health Social Worker Relationship Specialty Start Date End Date Sergio Barriga MD [address] [place] [address] PCP - General Family Medicine 08/07/19 documented as of this encounter
--- OUTSIDE RECORDS SUMMARY | 2024-04-18 23:55 | External Medical Summary | Summary of Care ---
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) Procedures OH LEUCOVORIN CALCIUM INJECTION OH FLUOROURACIL INJECTION OH IRINOTECAN INJECTION OH OXALIPLATIN OH FOSAPREPITANT INJECTION BEVACIZUMAB-BVZR, BIOSIMILAR, 10 MG (ZIRABEV), IV OH INJECTION, UDENYCA 0.5 MG Dakota Armando MD [address] [employer], [place] [address] Anc Hem/Onc [address] [place] DEPT CLOSED - 10/08/23 [address] [place] [phone] Referral ID Status Reason Start Date Expiration Date Visits Re quested Visits Authorized [id number] Closed 08/30/2023 11/24/[phone] Encounter Details Date Type Department Care Team (Latest Contact Info) Description 12/27/2023 1:15 PM EST Immunization/ Injection Hematology/Oncology Treatment, [place] [address] [place] [phone] Nurse, Med 4 [address] [place] [address] Encounter for antineoplastic chemotherapy*; 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); 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) Allergies Active Allergy Reactions Criticality Noted Date Comments Lisinopril Cough Low 08/07/2019 documented as of this encounter (statuses as of 02/18/2024) Medications Medication Sig Dispensed Refills Start Date End Date Status Boost 100 Calorie Smart Oral Liquid Take by mouth. 0 Active Multi Vitamin Daily Oral Tablet Take by mouth. 0 Active Aspirin 81 MG Oral Tablet Delayed Release Take 1 Tablet by mouth in the morning. 0 Active Pancrelipase (Smt-Uwhg-Xakw) 69129-26498 UNIT Oral Capsule Delayed Release Particles (Creon 97154) 2 cap with meals, 1 with larger [...] AT BEDTIME NEEDED FOR SLEEP 30 Tablet 0 3 12/27/19 24 Discontinued documented as of this encounter (statuses as of 02/18/2024) Active Problems Problem Noted Date Diagnosed Date Malignant neoplasm of body of pancreas 3 Metastasis to liver 08/30/2023 Encounter for antineoplastic chemotherapy 2022 History of carcinoma of pancreas 07/18/2023 Post-viral cough syndrome 07/09/2023 Upper airway cough syndrome 07/09/2023 History of 2019 novel coronavirus disease (COVID -19) 10/16/2022 Coronary artery disease invo lving [place] coronary artery of [place] heart without angina pectoris 08/20/2022 Overview: Severe [...] study [facility] WNL [address] Elena [facility] [...] as of this encounter (statuses as of 02/18/2024) Resolved Problems Problem Noted Date Diagnosed Date [...] WNL, antiphos lipids WNL Factor V+heteroqygous. FM KQ-FPAZ-XPRPE DIS NEC documented as of this encounter (statuses as of 02/18/2024) Immunizations Name Administration Dates Next Due COVID-19 mRNA, LNP-s, No Pre serve, 2-Dose Series ([employer]) 01/13/2022,07/21/2021,02/01/2021,01/04 COVID-19, MRNA-LNP, 23-24, P F, 30 MCG/0.3 mL, 12 YRS AND ABOVE, IM ([employer]) 09/12/2023 Covid-19, Mrna, Lnp-s, Pf, B ivalent, 30 Mcg, IM, 12 yrs and above ([employer]) 08/16/2022 HEP A - Hepatitis A (Adult [...] Nursing Notes * Nereyda Xiao, TIM - 12/27/2023 1:38 PM EST Pt arrived for Udencya injection. Administered in KRYSTAL. Pt tolerated well. Discharged in stable condition. documented in this encounter Plan of Treatment Upcoming Encounters Date Type Department Care Team (Late st Contact Info) Description 02/19/2024 9:15 AM EDT Office Visit Hematology/Oncology [facility] [place] [address] [place] [phone] Dakota Armando MD [address] [place] [address] 02/19/2024 9:45 AM EDT Nurse Only Hematology/Oncology [facility] [place] 200 [facility] [place] [phone] Rehana, Nurse Hem Onc [facility] [address] [facility] [place] [address] 02/19/2024 1:30 PM EDT Pharmacy Pharmacy Hematology Oncology [facility] [address] [place] [address] [facility] Hem/Onc [address] [place] [address] 03/17/2024 9:00 AM EDT Office Visit Hematology/Oncology [facility] [place] 200 [facility] [place] [phone] Amber Huizar CRNP [address] [place] [address] 07/20/2024 10:15 AM EDT Office Visit Dermatology [facility] [place] 200 [facility] [place] [address] Cal Jernigan MD 200 [facility] [place] [address] 07/21/2024 1:45 PM EDT Office Visit Hematology/Oncology [facility] [place] [address] [place] [phone] Dakota Armando MD 200 [facility] [place] [address] 07/24/2024 11:40 AM EDT Office Visit Family Practice [facility] [address] [place] [place] [address] Sergio Barriga MD [address] [place] [address] Scheduled Procedures Name Priority Associated Diagnoses Date/Ti [...] this encounter Medical Devices Implanted Type Area Sports Information Director Device Identifier Shelf Expiration Date Model / Serial / Lot Duraclip 16mm Xlg [facility] Hospital[facility] - [id number] Implanted:Qty : 1 on 07/17/2021 by Guillermo Jones DO at ENDOSCOPY [facility] [employer] [id number] 01/10/2024 [id number] / / [id number] Stent Viabil Biliary [id number] - [id number] Implanted:Qty : 1 on 07/17/2021 by Guillermo Jones DO at [facility]OSCOPY [facility] [employer] [id number] 03/04/2024 [id number] / [id number] / [id number] Port Implant W/8f Poly Cath - [id number] Implanted:Qty : 1 on 09/13/2023 by Gary Rodriguez DO at OR [facility] Right: Chest CR BARD : PERIPHERAL VASCULAR [id number] 04/24/2025 [id number] / / [id number] documented as of this encounter Visit Diagnoses [...] 6 mg 6 mg, Subcutaneous, ONCE, On Sat12/27/23 at 1415, For 1 dose Given 12/27/2023 1:32 PM EST 6 mg Arm R ight Upper documented in this encounter Advance Directives Documents on File Type Date Recorded Patient Flight Attendant Expl anation Advance Directives and Living Will [...] Agen t (per Health Care Power of Ground Equipment Mechanic document) [email or web address] Temo Cramer Sibling First Alternate Health Care Agent (per Health Care Power of Ground Equipment Mechanic document) [email or web address] Care Teams Hr Assistant Relationship Specialty Start Date End Date Sergio Barriga MD [address] [place] [address] PCP - General Family Medicine 08/07/19 documented as of this encounter
--- OUTSIDE RECORDS SUMMARY | 2024-04-18 23:55 | External Medical Summary | Summary of Care ---
Author Name Unknown Organization [facility] Address [address] [place] [address] Phone [phone] Care Team Providers Care Mail Superintendent Name Role Phone Sergio Barriga MD Primary Care Provider + Reason for Visit * Reason Onset Date Comments Medication Update 02/14/2024 Encounter Details Date Type Department Care Team (Late st Contact Info) Description 02/14/2024 Telephone Pharmacy Hematology Oncology [address] [phone] Jen Teixeira, [facility] [address] [place] [address] Medication Update Allergies Active Allergy Reactions Criticality Noted Date Comments Lisinopril Cough Low 08/07/2019 documented as of this encounter (statuses as of 02/16/2024) Medications Medication Sig Dispensed Refills Start Date End Date Status Boost 100 Calorie Smart Oral Liquid Take by mouth. 0 Act miley Multi Vitamin Daily Oral Tablet Take by mouth. 0 Act miley Aspirin 81 MG Oral Tablet Delayed Release Take 1 Tablet by mouth in the morning. 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 04/10 colon-Dr Case [facility] 2 polyps 1 tubular adenoma. Kevin 6y 2013 sleep study [facility] WNL [address] Elena [facility] Essential hypertension with goal blood [...] as of this encounter (statuses as of 02/16/2024) Resolved Problems Problem Noted Date Diagnosed Date [...] WNL, antiphos lipids WNL Factor V+heteroqygous. FM TV-ZVGZ-RDTMC DIS NEC documented as of this encounter (statuses as of 02/16/2024) Immunizations Name Administration Dates Next Due COVID-19 mRNA, LNP-s, No Pre serve, 2-Dose Series ([employer]) 01/13/2022,07/21/2021,02/01/2021,12/26 COVID-19, MRNA-LNP, 23-24, P F, 30 MCG/0.3 mL, 12 YRS AND ABOVE, IM ([facility]) 09/12/2023 Covid-19, Mrna, Lnp-s, Pf, B ivalent, 30 Mcg, IM, 12 yrs and above ([employer]) 08/16/2022 HEP A - Hepatitis A (Adult [...] encounter Miscellaneous Notes * Telephone Encounter - Chris Kaplan MD - 02/16/2024 9:22 PM EDT OK to DC PPI and consider adding carafate or famotidine as replacement therapy.as needed. * Telephone Encounter - Sergio Barriga MD - 02/14/2024 4:46 PM EDT Patient has been taking pantoprazole due to hx upper airway cough. I'm ok to stop it if needed forhis cancer treatment. Cc: Dr Kaplan, Anup Tripathi * Telephone Encounter - Jen Teixeira [facility] - 02/14/2024 3:59 PM EDT [...] (if available): 1. Lumakras (sotorasib) [prescribing information]. [place], [place]: [employer]; March 2021. Jen Teixeira, PharmD, BCOP Clinical Pharmacist, [facility] Oral Chemotherapy [facility] 02/14/2024, 4:00 PM documented in this encounter Plan of Treatment Upcoming Encounters Date Type Department Care Team (Late st Contact Info) Description 02/19/2024 9:15 AM EDT Office Visit Hematology/Oncology [facility] [address] [facility] [place] [phone] Dakota Armando MD [address] [facility] [place] [address] 02/19/2024 9:45 AM EDT Nurse Only Hematology/Oncology [facility] [address] [facility] [place] [phone] [place], Nurse Hem Onc [address] [place] [address] 02/19/2024 1:30 PM EDT Pharmacy Pharmacy Hematology Oncology [facility] [address] [place] [address] [facility] Hem/Onc [address] [place] [address] 03/17/2024 9:00 AM EDT Office Visit Hematology/Oncology [place] [facility] [address] [facility] [place] [phone] Amber Huizar CRNP [address] [place] [address] [place] [address] 07/20/2024 10:15 AM EDT Office Visit Dermatology [facility] [address] [facility] [place], [place] [address] Cal Jernigan MD [address] [facility] [place], [place] [address] 07/21/2024 1:45 PM EDT Office Visit Hematology/Oncology [facility] [address] [facility] [place], [place] [phone] Dakota Armando MD [address] [place] [address] 07/24/2024 11:40 AM EDT Office Visit Family Practice [facility] [address] [facility] [place] [address] Sergio Barriga MD [address] [place] [address] Scheduled Procedures Name Priority Associated Diagnoses Date/Ti [...] this encounter Medical Devices Implanted Type Area Melter Supervisor Device Identifier Shelf Expiration Date Model / Serial / Lot Duraclip 16mm Xlg Repostn - [id number] Implanted:Qty : 1 on 07/17/2021 by Guillermo Jones DO at [facility] [place] [id number] 01/10/2024 [id number] / / [id number] Stent Viabil Biliary [id number] - [id number] Implanted:Qty : 1 on 07/17/2021 by Guillermo Jones DO at [facility] [place] [id number] 03/04/2024 [id number] / [id number] / [id number] Port Implant W/8f Poly Cath - [id number] Implanted:Qty : 1 on 09/13/2023 by Gary Rodriguez DO at OR [facility] Right: Chest CR BARD : PERIPHERAL VASCULAR [id number] 04/24/2025 [id number] / / [id number] documented as of this encounter Advance Directives Documents on File Type Date Recorded Patient Dredge Hand Expl anation Advance Directives and Living [...] Agen t (per Health Care Power of Mill Crane Operator document) [email or web address] Temo Cramer Sibling First Alternate Health Care Agent (per Health Care Power of Mill Crane Operator document) [email or web address] Care Teams Mail Superintendent Relationship Specialty Start Date End Date Sergio Barriga MD [address] [place] [address] PCP - General Family Medicine 08/07/19 documented as of this encounter
--- OUTSIDE RECORDS SUMMARY | 2024-04-18 23:55 | External Medical Summary | Summary of Care ---
Author Name Unknown Organization [facility] Address [address] [facility] [address] Phone [phone] Care Team Providers Care Device Test Engineer Name Role Phone Sergio Barriga MD Primary Care Provider + Reason for Visit * Reason Onset Date Comments Precert Future 02/14/2024 Gemzar/Abraxane/ Lumakras Encounter Details Date Type Department Care Team (Late st Contact Info) Description 02/14/2024 Telephone Hematology/Oncology [facility] [place] [address] [place] [phone] Dakota Armando MD [address] [place] [address] Precert Future (Gemzar/Abraxane/Lumakr as) Allergies Active Allergy [...] mouth in the morning. 0 Active Pancrelipase (Dzx-Wgrl-Ceii) 64132-57895 UNIT Oral Capsule Delayed Release Particles (Creon 82767) 2 cap with meals, 1 with larger [...] -19) 10/16/2022 Coronary artery disease invo lving [place] coronary artery of [place] heart without angina pectoris 08/20/2022 Overview: Severe [...] 04/10 colon-Dr Eller [facility] 2 polyps 1 tubular adenoma. Kevin 6y 2013 sleep study [facility] WNL [address] Elena [facility] Essential hypertension with goal blood pressure [...] WNL, antiphos lipids WNL Factor V+heteroqygous. FM OY-EXIC-KXCLO DIS NEC documented as of this encounter (statuses as of 02/20/2024) Immunizations Name Administration Dates Next Due COVID-19 mRNA, LNP-s, No Pre serve, 2-Dose Series (T[employer]ing[employer]ames) 01/13/2022,07/21/2021,02/01/2021,02/1 COVID-19, MRNA-LNP, 23-24, P F, 30 [...] treatment. MTM- fyi regarding auth approval for [facility]- awaiting PFC review and copay assistance. [...] Description 02/25/2024 9:30 AM EDT Laboratory Laboratory State Shaina Garcia [facility] [place] [address] [place] [phone] [place] [address] 02/25/2024 10:30 AM EDT Hem/Onc Treatment Hematology/Oncology Treatment, [place] 200 [facility] [place] [phone] 03/17/2024 9:00 AM EDT Office Visit Hematology/Oncology Sharif Kimball [place] [address] [place] [phone] Amber Huizar CRNP [address] [place] [address] 07/20/2024 10:15 AM EDT Office Visit Dermatology [facility] 200 [facility] [place] [address] Cal Jernigan MD 200 [facility] [place] [address] 07/21/2024 1:45 PM EDT Office Visit Hematology/Oncology [facility] 200 [facility] [place] [phone] Dakota Armando MD 200 [facility] [place] [address] 07/24/2024 11:40 AM EDT Office Visit Family Practice [facility] 132 [facility] [place] [address] Sergio Barriga MD 132 [facility] [place] [address] Scheduled Orders Name Type Priority Associated Diagnoses [...] this encounter Medical Devices Implanted Type Area Application Processor Device Identifier Shelf Expiration Date Model / Serial / Lot Duraclip 16mm Xlg Repostn - [id number] Implanted:Qty : 1 on 07/17/2021 by Guillermo Jones DO at [place]OS[place] [facility] [employer] REYNALDO [id number] 01/10/2024 [id number] / / [id number] Stent Viabil Biliary [id number] - [id number] Implanted:Qty : 1 on 07/17/2021 by Guillermo Jones DO at ENDOSCOPY [facility] [employer] REYNALDO [id number] 03/04/2024 [id number] / [id number] / [id number] Port Implant W/8f Poly Cath - [id number] Implanted:Qty : 1 on 09/13/2023 by Gary Rodriguez DO at OR [facility] Right: Chest CR BARD : PERIPHERAL VASCULAR [id number] 04/24/2025 [id number] / / [id number] documented as of this encounter Visit Diagnoses Diagnosis 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)- Primary Malignant neoplasm of body of pancreas documented in this encounter Advance Directives Documents on File Type Date Recorded Patient Social Media Senior Associate Expl anation Advance Directives and Living Will 10/23/2022 4:43 PM Virginie CramerWilliaherbie Cramer KarlLibhartLivingWiyonas .PDF Latest Code Status on File Code Status Date Activated Date Inactivated Comments Full Code 07/16/2021 10:04 AM 07/18/2021 6:28 PM This order reflects the patients wishes and were consensually agreed upon. Healthcare Agents on File Name Relationship Healthcare Agent Relationship Communication Virginie Cramer Spouse Health Care Agen t (per Health Care Power of [employer] Team Member document) [email or web address] Temo Bela Sibling First Alternate Health Care Agent (per Health Care Power of [employer] Team Member document) [email or web address] Medical Care Teams Device Test Engineer Relationship Specialty Start Date End Date Sergio Barriga MD [address] [place] [address] PCP - General Family Medicine 08/07/19 documented as of this encounter
--- OUTSIDE RECORDS SUMMARY | 2024-04-18 23:55 | External Medical Summary | Summary of Care ---
Author Name Unknown Organization [facility] Address [address] [facility] [address] Phone [phone] Care Team Providers Care China And Silverware Salesperson Name Role Phone Sergio Barriga MD Primary Care Provider + Encounter Details Date Type Department Care Team (Late st Contact Info) Description 02/19/2024 9:45 AM EDT Nurse Only Hematology/Oncology [place] Shaina Kimball [address] [place] [phone] Rehana, Nurse Hem Onc [address] [place] [address] Arrived Allergies Active Allergy Reactions Criticality Noted Date [...] mouth in the morning. 0 Active Pancrelipase (Lgg-Fcjq-Qsvi) 43533-50573 UNIT Oral Capsule Delayed Release Particles (Creon 18096) 2 cap with meals, 1 with larger [...] -19) 10/16/2022 Coronary artery disease invo lving [place] coronary artery of [place] heart without angina pectoris 08/20/2022 Overview: Severe [...] [address] [facility] WNL [address] [facility] [...] WNL, antiphos lipids WNL Factor V+heteroqygous. FM VI-JRVN-SSDWK DIS NEC documented as of this encounter (statuses as of 02/19/2024) Immunizations Name Administration Dates Next Due COVID-19 mRNA, LNP-s, No Pre serve, 2-Dose Series ([employer]) 01/13/2022,07/21/2021,02/01/2021,01/04 COVID-19, MRNA-LNP, 23-24, P F, 30 MCG/0.3 mL, 12 YRS AND ABOVE, IM (TVPage-ComirnatAqdot) 09/12/2023 Covid-19, Mrna, Lnp-s, Pf, B ivalent, 30 Mcg, IM, 12 yrs and above ([employer]) 08/16/2022 HEP A - Hepatitis A (Adult [...] as of this encounter Progress Notes * uJan Smith, RN - 02/19/2024 10:16 AM EDT Education completed. [facility] aware of Lumakras approval. documented in this encounter Plan of Treatment Upcoming Encounters Date Type Department Care Team (Late st Contact Info) Description 02/19/2024 1:30 PM EDT Pharmacy Pharmacy Hematology Oncology [facility] [address] [place] [address] [facility] Hem/Onc [address] [place] [address] 03/17/2024 9:00 AM EDT Office Visit Hematology/Oncology [facility] [address] [place] [address] [phone] Amber Huizar CRNP [address] [place] [address] 07/20/2024 10:15 AM EDT Office Visit Dermatology [place]ana [place] [address] [place] [address] Cal Jernigan MD [address] [place] [address] [address] 07/21/2024 1:45 PM EDT Office Visit Hematology/Oncology [facility] [place] [address] [place] [address] [phone] Dakota Armando MD 200 [place] [address] 07/24/2024 11:40 AM EDT Office Visit Family Practice [facility] [address] [place] [address] Sergio Barriga MD [address] [place] [address] Scheduled Procedures Name Priority Associated Diagnoses Date/Ti [...] this encounter Medical Devices Implanted Type Area Purchasing Expeditor Device Identifier Shelf Expiration Date Model / Serial / Lot Duraclip 16mm Xlg Repostn - [id number] Implanted:Qty : 1 on 07/17/2021 by Guillermo Jones DO at ENDOSCOPY [facility] [employer]a [id number] 01/10/2024 [id number] / / [id number] Stent Viabil Biliary [id number] - [id number] Implanted:Qty : 1 on 07/17/2021 by Guillermo Jones DO at ENDOSCOPY [facility] [employer] 4a [id number] 03/04/2024 [id number] / [id number] / [id number] Port Implant W/8f Poly Cath - [id number] Implanted:Qty : 1 on 09/13/2023 by Gary Rodriguez DO at OR [facility] Right: Chest CR BARD : PERIPHERAL VASCULAR [id number] 04/24/2025 [id number] / / [id number] documented as of this encounter Advance Directives Documents on File Type Date Recorded Patient Data Typist Expl anation Advance Directives and Living Will 10/23/2022 4:43 PM Virginie Craemr KarlLibhartLivingWill .PDF Latest Code Status on File Code Status Date Activated Date Inactivated Comments Full Code 07/16/2021 10:04 AM 07/18/2021 6:28 PM This order reflects the patients wishes and were consensually agreed upon. Healthcare Agents on File Name Relationship Healthcare Agent Relationship Communication Virginie Cramer Spouse Health Care Agen t (per Health Care Power of Theatre Program Director document) [email or web address] Temo Bela Sibling First Alternate Health Care Agent (per Health Care Power of Theatre Program Director document) [email or web address] Care Teams China And Silverware Salesperson Relationship Specialty Start Date End Date Sergio Barriga MD [address] [place] [address] PCP - General Family Medicine 08/07/19 documented as of this encounter
--- OUTSIDE RECORDS SUMMARY | 2024-04-18 23:55 | External Medical Summary | Summary of Care ---
Author Name Unknown Organization [facility] Address [address] [facility] [address] Phone [phone] Care Team Providers Care Shuttle Threader Name Role Phone Sergio Barriga MD Primary Care Provider + Reason for Visit * Reason Onset Date Comments Precert Future 02/14/2024 Gemzar/Abraxane/ Lumakras Encounter Details Date Type Department Care Team (Late st Contact Info) Description 02/14/2024 Telephone Hematology/Oncology [facility] [place] [address] [place] [phone] Dakota Armando MD [address] [place] [address] Precert Future (Gemzar/Abraxane/Lumakr as) Allergies Active Allergy [...] mouth in the morning. 0 Active Pancrelipase (Vge-Celz-Tldq) 87550-229[address] UNIT Oral Capsule Delayed Release Particles (Creon 63970) 2 cap with meals, 1 with larger [...] -19) 10/16/2022 Coronary artery disease invo lving [place] coronary artery of [place] heart without angina pectoris 08/20/2022 Overview: Severe [...] lipids WNL Factor V+heteroqygous. 04/10 colon-Dr Eller [facility] 2 polyps 1 tubular adenoma. Kevin 6y 2013 sleep study [facility] WNL [address] Elena [facility] Essential hypertension with goal blood [...] WNL, antiphos lipids WNL Factor V+heteroqygous. FM XW-ONBP-PWZZL DIS NEC documented as of this encounter (statuses as of 02/19/2024) Immunizations Name Administration Dates Next Due COVID-19 mRNA, LNP-s, No Pre serve, 2-Dose Series ([employer]) 01/13/2022,07/21/2021,02/01/2021,02/1 COVID-19, MRNA-LNP, 23-24, P F, 30 [...] treatment. MTM- fyi regarding auth approval for [facility]- awaiting PFC review and copay assistance. [...] [facility] [address] [place] [address] [facility] Hem/Onc [address] [place] [address] 02/25/2024 9:30 AM EDT Laboratory Laboratory State Shaina Garcia [address] [place], [place] [phone] Rehana Lab Scenery [address] [place] [address] 02/25/2024 10:30 AM EDT [facility] [address] [place], [place] [phone] 03/17/2024 9:00 AM EDT Office Visit Hematology/Oncology [facility] [address] [place] [phone] Amber Huizar CRNP [address] [facility] [address] 07/20/2024 10:15 AM EDT Office Visit Dermatology [facility] [address] [facility] [place] [address] Cal Jernigan MD 200 [facility] [place], [place] [address] 07/21/2024 1:45 PM EDT Office Visit Hematology/Oncology [facility] [address] [facility] [place] [phone] Dakota Armando MD 200 [facility] [place], [place] [address] 07/24/2024 11:40 AM EDT Office Visit Family Practice [facility] [address] [facility] [place] [address] Sergio Barriga MD 132 [facility] [place] [address] Scheduled Orders Name Type Priority Associated Diagnoses [...] this encounter Medical Devices Implanted Type Area Machine Precision Engraver Device Identifier Shelf Expiration Date Model / Serial / Lot Duraclip 16mm Xlg [facility] [id number] Implanted:Qty : 1 on 07/17/2021 by Guillermo Jones DO at ENDOS[place] [facility] [employer] REYNALDO [id number] 01/10/2024 [id number] / / [id number] Stent Viabil Biliary [id number] - [id number] Implanted:Qty : 1 on 07/17/2021 by Guillermo Jones DO at ENDOS[place] [facility] [employer] REY[employer] [id number] 03/04/2024 [id number] / [id number] / [id number] Port Implant W/8f Poly Cath - [id number] Implanted:Qty : 1 on 09/13/2023 by Gary Rodriguez DO at OR [facility] Right: Chest CR BARD : PERIPHERAL VASCULAR [id number] 04/24/2025 [id number] / / [id number] documented as of this encounter Visit Diagnoses Diagnosis 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)- Primary Malignant neoplasm of body of pancreas documented in this encounter Advance Directives Documents on File Type Date Recorded Patient Environmental Health Nurse Expl anation Advance Directives and Living Will [...] Agen t (per Health Care Power of Marketing Specialist document) [email or web address] Temo Bela Sibling First Alternate Health Care Agent (per Health Care Power of Marketing Specialist document) Care Teams Shuttle Threader Relationship Specialty Start Date End Date Sergio Barriga MD [address] [place] [address] PCP - General Family Medicine 08/07/19 documented as of this encounter
--- OUTSIDE RECORDS SUMMARY | 2024-04-18 23:55 | External Medical Summary | Summary of Care ---
Author Name Unknown Organization [facility] Address [address] [place] [address] Phone [phone] Care Team Providers Care Orthopedic Physical Therapist Name Role Phone Sergio Barriga MD Primary Care Provider + Reason for Visit * Reason Onset Date Comments Medication Update 02/14/2024 Encounter Details Date Type Department Care Team (Late st Contact Info) Description 02/14/2024 Telephone Pharmacy Hematology Oncology [address] [phone] Jen Teixeira, [facility] [address] [place] [address] Medication Update Allergies Active Allergy Reactions Criticality Noted Date Comments Lisinopril Cough Low 08/07/2019 documented as of this encounter (statuses as of 02/17/2024) Medications Medication Sig Dispensed Refills Start Date End Date Status Boost 100 Calorie Smart Oral Liquid Take by mouth. 0 Act miley Multi Vitamin Daily Oral Tablet Take by mouth. 0 Act miley Aspirin 81 MG Oral Tablet Delayed Release Take 1 Tablet by mouth in the morning. 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 04/10 colon-Dr Case [facility] 2 polyps 1 tubular adenoma. Kevin 6y 2013 sleep study [facility] WNL [address] Elena [facility] Essential [...] as of this encounter (statuses as of 02/17/2024) Resolved Problems Problem Noted Date Diagnosed Date [...] WNL, antiphos lipids WNL Factor V+heteroqygous. FM HF-YNEP-AIFTJ DIS NEC documented as of this encounter (statuses as of 02/17/2024) Immunizations Name Administration Dates Next Due COVID-19 mRNA, LNP-s, No Pre serve, 2-Dose Series (Diaferon) 01/13/2022,07/21/2021,02/01/2021,12/26 COVID-19, MRNA-LNP, 23-24, P F, 30 MCG/0.3 mL, 12 YRS AND ABOVE, IM ([facility]) 09/12/2023 Covid-19, Mrna, Lnp-s, Pf, B ivalent, 30 Mcg, IM, 12 yrs and above (Diaferon) 08/16/2022 HEP A - Hepatitis A (Adult [...] Tripathi * Telephone Encounter - Jen Teixeira [facility] - 02/14/2024 3:59 PM EDT [...] (if available): 1. Lumakras (sotorasib) [prescribing information]. [place], [place]: [employer]; March 2021. Jen Teixeira, PharmD, BCOP Clinical Pharmacist, [facility] Oral Chemotherapy [facility] 02/14/2024, 4:00 PM documented in this encounter Plan of Treatment Upcoming Encounters Date Type Department Care Team (Late st Contact Info) Description 02/19/2024 9:15 AM EDT Office Visit Hematology/Oncology [place] Shaina Garcia [address] [facility] [place] [phone] Dakota Armando MD [address] [facility] [place] [address] 02/19/2024 9:45 AM EDT Nurse Only Hematology/Oncology [place] Shaina Garcia [address] [facility] [place] [phone] [place], Nurse Hem Onc [address] [place] [address] 02/19/2024 1:30 PM EDT Pharmacy Pharmacy Hematology Oncology [facility] [address] [place] [address] [facility] [place] Hem/Onc [address] [place] [address] 03/17/2024 9:00 AM EDT Office Visit Hematology/Oncology [place] Shaina Garcia [address] [facility] [place] [phone] Amber Huizar CRNP [address] [place] [address] [facility] [place] [address] 07/20/2024 10:15 AM EDT Office Visit Dermatology [facility] [address] [facility] [place], [place] [address] Cal Jernigan MD [address] [facility] [place], [place] [address] 07/21/2024 1:45 PM EDT Office Visit Hematology/Oncology [facility] [address] [facility] [place], [place] [phone] Dakota Armando MD [address] [facility] [place] [address] 07/24/2024 11:40 AM EDT Office Visit Family Practice [facility] [address] [facility] [place] [address] Sergio Barriga MD [address] [facility] [place] [place] [address] Scheduled Procedures Name Priority Associated Diagnoses Date/Ti [...] this encounter Medical Devices Implanted Type Area Care Manager Cna Device Identifier Shelf Expiration Date Model / Serial / Lot Duraclip 16mm Xlg Repostn - [id number] Implanted:Qty : 1 on 07/17/2021 by Guillermo Jones DO [facility] [employer] [id number] 01/10/2024 [id number] / / [id number] Stent Viabil Biliary [id number] - [id number] Implanted:Qty : 1 on 07/17/2021 by Guillermo Jones DO at [facility] [employer] [id number] 03/04/2024 [id number] / [id number] / [id number] Port Implant W/8f Poly Cath - [id number] Implanted:Qty : 1 on 09/13/2023 by Gary Rodriguez DO at OR [facility] Right: Chest CR BARD : PERIPHERAL VASCULAR [id number] 04/24/2025 [id number] / / [id number] documented as of this encounter Advance Directives Documents on File Type Date Recorded Patient Coupon And Bond Collection Clerk Expl anation Advance Directives and Living [...] Agen t (per Health Care Power of Car Supplier document) [email or web address] Temo Cramer Sibling First Alternate Health Care Agent (per Health Care Power of Car Supplier document) [email or web address] Care Teams Orthopedic Physical Therapist Relationship Specialty Start Date End Date Sergio Barriga MD [address] [place] [address] PCP - General Family Medicine 08/07/19 documented as of this encounter
--- OUTSIDE RECORDS SUMMARY | 2024-04-18 23:55 | External Medical Summary | Summary of Care ---
Author Name Unknown Organization [facility] Address [address] [facility] [address] Phone [phone] Care Team Providers Care Specialist Physician Name Role Phone Sergio Barriga MD Primary Care Provider + Reason for Visit * Reason Onset Date Comments Precert Future 02/14/2024 Gemzar/Abraxane/ Lumakras Encounter Details Date Type Department Care Team (Late st Contact Info) Description 02/14/2024 Telephone Hematology/Oncology [facility] [place] [address] [place] [phone] Dakota Armando MD [address] [place] [address] Precert Future (Gemzar/Abraxane/Lumakr as) Allergies Active Allergy [...] mouth in the morning. 0 Active Pancrelipase (Bxt-Fifc-Dnvi) 54935-[address] UNIT Oral Capsule Delayed Release Particles (Creon 72015) 2 cap with meals, 1 with larger [...] -19) 10/16/2022 Coronary artery disease invo lving [place] coronary artery of [place] heart without angina pectoris 08/20/2022 Overview: Severe [...] V+heteroqygous. 04/10 colon-Dr Eller [facility] 2 polyps 1 tubular adenoma. Kevin 5y 2013 sleep study [facility] WNL [address] Elena [facility] Essential hypertension with goal blood pressure [...] WNL, antiphos lipids WNL Factor V+heteroqygous. FM GI-EPFK-JCIBV DIS NEC documented as of this encounter (statuses as of 02/19/2024) Immunizations Name Administration Dates Next Due COVID-19 mRNA, LNP-s, No Pre serve, 2-Dose Series ([employer]) 01/13/2022,07/21/2021,02/01/2021,02/1 COVID-19, MRNA-LNP, 23-24, P F, 30 [...] completed. Consent signed today for all treatment. [facility]- [facility] regarding auth approval for [facility]- awaiting PFC review and copay assistance. Scheduling- [...] PM EDT Pharmacy Pharmacy Hematology Oncology [facility] [address] [place] [address] [facility] Hem/Onc [address] [place] [address] 03/17/2024 9:00 AM EDT Office Visit Hematology/Oncology [facility] [address] [facility] [place] [phone] Amber Huizar CRNP [address] [place] [address] 07/20/2024 10:15 AM EDT Office Visit Dermatology [facility] [place] [address] [facility] [place] [address] Cal Jernigan MD 200 [facility] [place] [id number] 07/21/2024 1:45 PM EDT Office Visit Hematology/Oncology [facility] [address] [facility] [place] [address] Dakota Armando MD 200 [facility] [place] [address] 07/24/2024 11:40 AM EDT Office Visit Family Practice [facility] [address] [place] [address] Sergio Barriag MD [address] [place] [address] Scheduled Orders Name Type Priority Associated Diagnoses [...] this encounter Medical Devices Implanted Type Area Wall Mirror Department Supervisor Device Identifier Shelf Expiration Date Model / Serial / Lot Duraclip 16mm Xlg Repostn - [id number] Implanted:Qty : 1 on 07/17/2021 by Guillermo Jones DO [place] [facility] [place] [id number] 01/10/2024 [id number] / / [id number] Stent Viabil Biliary [id number] - [id number] Implanted:Qty : 1 on 07/17/2021 by Guillermo Jones DO [place] [facility] [place] [id number] 03/04/2024 [id number] / [id number] / [id number] Port Implant W/8f Poly Cath - [id number] Implanted:Qty : 1 on 09/13/2023 by Gary Rodriguez DO at OR [facility] Right: Chest CR BARD : PERIPHERAL VASCULAR [id number] 04/24/2025 [id number] / / [id number] documented as of this encounter Visit Diagnoses Diagnosis 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
--- OUTSIDE RECORDS SUMMARY | 2024-04-18 23:55 | External Medical Summary | Summary of Care ---
Author Name Unknown Organization [facility] Address [address] [place] [address] Phone [phone] Care Team Providers Care Stapler Hand Name Role Phone Sergio Barriga MD Primary Care Provider + Reason for Visit * Reason Comments Follow Up Finding out new chem o procedure Encounter Details Date Type Department Care Team (Late st Contact Info) Description 02/19/2024 9:15 AM EDT Office Visit Hematology/Oncology [facility] [place] [address] [facility] [place] [phone] Dakota Armando MD 200 [facility] [place] [address] 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)*; 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) Allergies Active Allergy [...] mouth in the morning. 0 Active Pancrelipase (Gpq-Huoa-Jwhv) 33306-301[address] UNIT Oral Capsule Delayed Release Particles (Creon 16598) 2 cap with meals, 1 with larger [...] -19) 10/16/2022 Coronary artery disease invo lving [place] coronary artery of [place] heart without angina pectoris 08/20/2022 Overview: Severe [...] WNL Factor V+heteroqygous. 04/10 colon-Dr Eller [facility] 2 polyps 1 tubular adenoma. Kevin 6y 2013 sleep study [facility] WNL [address] Elena [facility] Essential hypertension with goal blood [...] WNL, antiphos lipids WNL Factor V+heteroqygous. FM IV-KADU-IFPFQ DIS NEC documented as of this encounter (statuses as of 02/21/2024) Immunizations Name Administration Dates Next Due COVID-19 mRNA, LNP-s, No Pre serve, 2-Dose Series ([employer]) 01/13/2022,07/21/2021,02/01/2021,01/04 COVID-19, MRNA-LNP, 23-24, P F, 30 MCG/0.3 mL, 12 YRS AND ABOVE, IM (Misoca-Comirnat) 09/12/2023 Covid-19, Mrna, Lnp-s, Pf, B ivalent, 30 Mcg, IM, 12 yrs and above ([employer]) 08/16/2022 HEP A - Hepatitis A (Adult [...] Sign Reading Time Taken Comments Blood Pressure 129/85 02/19/2024 9:17 AM EDT Pulse 80 02/19/2024 9:17 AM EDT Temperature 36.4 C (97.6 F) 02/19/2024 9:17 AM ED T Respiratory Rate 16 02/19/2024 9:17 AM EDT Oxygen Saturation 95% 02/19/2024 9:17 AM EDT Inhaled Oxygen Concentration - - Weight 60.1 kg (132 lb 9.6 oz) 02/19/2024 9:17 A M EDT Height - - Body Mass Index 19.58 12/02/2023 2:17 PM EST documented in this [...] Progress Notes * Dakota Armando MD - 02/19/2024 9:15 AM EDT Hematology/Oncology Outpatient Clinic note Angie Kimball [address] [place] [address] Name: Rafael Cramer Date: 11/04/2023 CHIEF COMPLAINT: Rafael Cramer is a 73 year old male here today for f/u [...] by Dr. Mike Westbrook on 08/07/2021 at [facility]. -He completed gemcitabine and Xeloda combination between 08/2021- 01/2022. mFOLFIRINOX every 14 days (09/17/23 -02/04/2024 ) CURRENT TREATMENT: Planning start gemcitabine Abraxane chemotherapy every other week. - Sotorasib (Lumakras) 960 mg once a day. After 2 treatments with gemcitabine and Abraxane, we can consider for stopping and continuing with Sotorasib. DIAGNOSTIC WORKUP: He was noticed to have [...] by Dr. Mike Westbrook on 08/07/2021 at [facility]. 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 -T2 N1 OTHER IMPORTANT HISTORY: -history of melanoma History of left lower extremity DVT. (01/05/2019 and 04/21/2019). 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 Interval History: Component Latest Ref Rng 12/31/2022 07/18/2023 07/31/2023 [...] received 2nd opinion from medical oncologist from [place] who agreed with treatment plan. Also recommending after 12 treatments with FOLFIRINOX, he may consider the clinical trial of G12C inhibitor. He will need port for upcoming chemotherapy Would like to send the NGS checkup on the liver biopsy specimen ( done at [place]). Component Latest Ref Rng 09/30/2023 CA 19-9 <35.0 U/mL 437.1 (H) HISTORY OF PRESENT ILLNESS: He has come the clinic for the follow-up, he came to clinic by himself. He says that the he is feeling better, following last treatment, did not have significant diarrhea,he also had increasing coughing which has improved, currently not on any antibiotic treatment, he takes Creon on regular basis, no increasing nausea, no vomiting, weight has remained stable 132 lb, ambulates slowly, has some mild tingling and numbness of extremities but It has remained stable mainly with the cold exposure. He denies any increasing shortness of breath, no abdominal pain. No bleeding from the sites. Past Medical History: Diagnosis Date Alcohol abuse 08/07/2019 Allergic disorder Allergy unspecified Asthma, severity to be determined Asthma Chronic insomnia 05/18/2019 Coronary artery disease involving the [place] coronary artery of [place] heart without angina pectoris 08/20/2022 Severe noted [...] Dr Mix COLONOSCOPY 04/02/2017 Dr Eller [facility] 2 polyps 1 tubular adenoma. COLONOSCOPY, DIAGNOSTIC (RECTUM) 09/14/2022 diverticulosis, fair prep, repeat 1 yr / [facility] COLORECTAL CANCER SCREEN;W/FLE 2006 EGD, FLEXIBLE,W/ENDOSCOPIC US 07/12/2021 pancreatic mass, GB sludge, CBD dilation, abnormal lymph nodes / [facility] EGD, W/ENDOSCOPIC US N/A 07/17/2021 ESOPHAGOGASTRODUODENOSCOPY (EGD), FLEXIBLE, TRANSORAL, ENDOSCOPIC ULTRASOUND performed by Guillermo Jones DO at [facility] ERCP 07/12/2021 ERCP, DIAGNOSTIC, SPECIMEN COLLECTION N/A 07/17/2021 ENDOSCOPIC RETROGRADE CHOLANGIOPANCREATOGRAPHY ([facility]) DIAGNOSTIC performed by Guillermo Jones DO at[facility] INSER TUNN ACC DEV;5 YRS/OLDER Right 09/13/2023 INSERT TUNNELED CENTRAL VENOUS ACCESS WITH SUBQ PORT performed by Gary Rodriguez, at OR [facility] IR BIOPSY 08/21/2023 KNEE ARTHROSCOPY/DEBRIDEMENT Left 07/12/[address] Zhu left partial medical meniscectomy & chondroplasty. REMOVE PANCREAS, PARTIAL (WHIPPLE) 08/07/2021 [place]. Robot assisted. Dr Mike Westbrook. REMOVE TONSILS & ADENOIDS, UNDER 12 Tonsillectomy/Adenoids,<12 Y/O SHOULDER ARTHROSCOPY/DEBRIDEMENT Left 08/31/2014 Dr Zhu +biceps tenotomy debride labrum, subacromial decompression & distal clavicle excision. 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 Tobacco Use Smoking status: Never Smokeless tobacco: Never Vaping Use Vaping Use: Never used Substance and Sexual Activity Alcohol use: Yes Comment: 4 drinks/ day had stopped w/CA 2020, now rare. Drug use: Yes Frequency: 5.0 times per week Types: Marijuana Comment: oral caps. for appetite, relaxation. Sexual activity: Yes Partners: Female Comment: . 2 stepchildren. [facility] [employer]. no grandkids Other Topics Concern Not on file Social History Narrative Likes gardening. Cabin in [facility]. Likes to weights, walking. Active [place] [employer]. 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 Social Determinants [...] Tablet by mouth in the morning. Pancrelipase (Pcw-Kwtc-Jbna) 26474-[address] UNIT Oral Capsule Delayed Release Particles (Creon 12165) 2 cap with meals, 1 with larger [...] BEDTIME NEEDED FOR SLEEP 30 Tablet 2 No current facility-administered medications for this visit. REVIEW OF SYSTEMS: See HPI - otherwise negative OBJECTIVE: BP 129/85 (BP Site: Left Arm, BP Position: Sitting, BP Cuff Size: Regular) | Pulse 80 | Temp 36.4 C (97.6 F) (Tympanic) | Resp 16 | Wt 60.1 kg (132 lb 9.6 oz) | SpO2 95% | BMI 19.58 kg/m | BSA 1.71 m PHYSICAL EXAM: ECOG: Performance Status 1 = 80-90% Symptoms but nearly ambulatory General Appearance: No acute distress, thin HEENT: Normal - No oral or pharyngeal masses, ulceration or thrush noted Lymph Nodes: Normal - No palpable lymph nodes in the neck or supraclavicular areas Lungs/Thorax: Normal - Clear to auscultation; right mediport WNL Heart: Normal - Regular rate and rhythm, normal S1, S2, no appreciable murmurs Pulses/Extremities: Normal - 2+ throughout and symmetrical, no edema to upper or lower extremities Abdomen: Normal - Soft, nontender, bowel sounds present, no appreciable hepatosplenomegaly, no palpable masses Musculoskeletal: No deformity or asymmetry noted to thoracic area, no pain on palpation of right rib cage or intercostal muscles; no swelling to right shoulder or right side of neck, full ROM to shoulder noted Neurologic: Normal - Grossly intact LABS: Blood workup done on 02/03/2024: -BUN/Creat: 11/1.0 -AST 41, ALT 49, alkaline phosphatase 226, bilirubin level 0.2 -WBC 12,700, H&H of 11.3/36.6, Platelet count of 209635. -CA 19-9 level --> 540. ( 01/20/2024). CA 19-9 level has gone up to around 446. (12/02/2023). CT scan of the chest, abdomen pelvis done on 11/28/2023: 1. Interval increase in groundglass opacities throughout [...] portacaval lymph node. Additional prominent retroperitoneal nodes unchanged.No new lymphadenopathy. 5. Nodular endophytic density at the posterior gastric fundus. This could represent focal ingested food material or a gastric fold, however a gastric polyp cannot be fully excluded. Recommend attention on follow-up. 6. 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 CT scan of chest, abdomen pelvis on 01/27/2024: -perirectal masses stable -hepatic segment 6 lesion slightly increased from 1.6 x 1.3 cm --> 2 x 1.9 cm -stable subcentimeter retroperitoneal mesenteric lymph nodes. -interval decrease in the consolidation within the right lateral lung base. -slightly increasing consultation along the inferior right upper lobe: -new low-attenuation nodular opacities within the right upper lobe. IMPRESSION/PLAN: Metastatic Pancreatic Adenocarcinoma Liver metastasis. Currently he is on modified FOLFIRINOX chemotherapy, so far received 5 cycles of chemotherapy, lasttreatment was about a week back, following last treatment, he had diarrhea only on 1 day, he also had increasing coughing, received antibiotic treatment earlier but now It has improved significantly,currently no coughing, no shortness of breath, no new GI symptoms, weight has remained stable. I reviewed his blood workup done yesterday, overall stable blood workup noted. CA 19-9 level has gone up. Reviewed with him regarding the latest CT scan of chest, abdomen pelvis done in early January of 2024. Dr Santiago from [place] spoke with me about his case. He [...] (Lumakras) is available, we will start that. I with him regarding treatment schedule with the chemotherapy gemcitabine Abraxane and he is in agreement for that. Will see him about 4 weeks after start of the treatment. ( every other treatment. Dr. Dakota Armando Hem/Onc (This note was completed using the dictation program Fluency Direct. As such, there may be misspellings word substitutions, or other variations that should not change the essence of the clinical content of this encounter note. If there is need for further clarification, please direct questions to the provider listed above.) documented in this encounter Nursing Notes * Nereyda Diamond, SHARONDA WAGNER - 02/19/2024 9:18 AM EDT Patient identifed by name and birthdate Do you have any concerns about pain management for today's visit? No Living Will or Advance Directive for Health Care as noted on the problem list. [facility] is a way you can talk to your provider on line through e-mail. Would you like to sign up? I can activate it for you? ALREADY ACTIVE Filed Vitals: 02/19/24 0917 BP: 129/85 Pulse: 80 Resp: 16 Temp: 36.4 C (97.6 F) TempSrc: Tympanic SpO2: 95% Weight: 60.1 kg (132 lb 9.6 oz) Patient was instructed to not get [...] Description 02/25/2024 9:30 AM EDT Laboratory Laboratory [facility] [place] [address] [phone] [place] [address] [place] [address] [address] 02/25/2024 10:30 AM EDT Hem/Onc Treatment Hematology/Oncology Treatment, [place] [address] [facility] [place] [phone] 03/17/2024 9:00 AM EDT Office Visit Hematology/Oncology [facility] [place] [phone] Amber Huizar CRNP [address] [place] [address] [place] [address] 07/20/2024 10:15 AM EDT Office Visit Dermatology [facility] [place] [address] [address] Cal Jernigan MD [address] [facility] [place] [address] 07/21/2024 1:45 PM EDT Office Visit Hematology/Oncology [facility] [address] [facility] [place], [place] [phone] Dakota Armando MD 200 [facility] [place], [place] [address] 07/24/2024 11:40 AM EDT Office Visit Family Practice [facility] [address] [place] [address] Sergio Barriga MD [address] [place] [address] Scheduled Procedures Name Priority Associated Diagnoses Date/Ti [...] this encounter Medical Devices Implanted Type Area Admiralty Lawyer Device Identifier Shelf Expiration Date Model / Serial / Lot Duraclip 16mm Xlg Repostn - [id number] Implanted:Qty : 1 on 07/17/2021 by Guillermo Jones DO at [facility] [employer] [id number] 01/10/2024 [id number] / / [id number] Stent Viabil Biliary [id number] - [id number] Implanted:Qty : 1 on 07/17/2021 by Guillermo Jones DO at [facility] [employer] [id number] 03/04/2024 [id number] / [id number] / [id number] Port Implant W/8f Poly Cath - [id number] Implanted:Qty : 1 on 09/13/2023 by Gary Rodriguez DO at OR [facility] Right: Chest CR BARD : PERIPHERAL VASCULAR [id number] 04/24/2025 [id number] / / [id number] documented as of this encounter Visit Diagnoses Diagnosis 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)- Primary Malignant neoplasm of body of pancreas 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 documented in this encounter Advance Directives Documents on File Type Date Recorded Patient Test Lead Expl anation Advance Directives and Living Will 10/23/2022 4:43 PM Virginie Cramer KarlLibhartLivingWiyonas .PDF Latest Code Status on File Code Status Date Activated Date Inactivated Comments Full Code 07/16/2021 10:04 AM 07/18/2021 6:28 PM This order reflects the patients wishes and were consensually agreed upon. Healthcare Agents on File Name Relationship Healthcare Agent Relationship Communication Virginie Cramer Spouse Health Care Agen t (per Health Care Power of Assembler Billiard Table document) [email or web address] Cramer Sibling First Alternate Health Care Agent (per Health Care Power of Assembler Billiard Table document) [email or web address] Care Teams Stapler Hand Relationship Specialty Start Date End Date Sergio Barriga MD [address] [place] [address] PCP - General Family Medicine 08/07/19 documented as of this encounter"
--- OUTSIDE RECORDS SUMMARY | 2024-04-18 23:55 | External Medical Summary | Summary of Care ---
Author Name Unknown Organization [facility] Address [address] [place] [address] Phone [phone] Care Team Providers Care Clerical Warehouseman Name Role Phone Sergio Barriga MD Primary Care Provider + Encounter Details Date Type Department Care Team (Late st Contact Info) Description 02/18/2024 Documentation [facility] [place] [address] [place] [address] Services, [facility] Infusion [address] [place] [address] Allergies Active Allergy Reactions Criticality Noted Date [...] mouth in the morning. 0 Active Pancrelipase (Sjj-Wqiu-Whmf) 57536-43914 UNIT Oral Capsule Delayed Release Particles (Creon 38980) 2 cap with meals, 1 with larger [...] -19) 10/16/2022 Coronary artery disease invo lving tribe coronary artery of tribe heart without angina pectoris 08/20/2022 Overview: Severe [...] WNL Factor V+heteroqygous. 04/10 colon-Dr Eller [facility] 2 polyps 1 tubular adenoma. Kevin 5y 2013 sleep study [facility] WNL [address] Elena [facility] Essential hypertension with goal blood pressure less [...] WNL, antiphos lipids WNL Factor V+heteroqygous. FM IA-WRBI-HWPNA DIS NEC documented as of this encounter (statuses as of 02/18/2024) Immunizations Name Administration Dates Next Due COVID-19 mRNA, LNP-s, No Pre serve, 2-Dose Series (SLEDVision) 01/13/2022,07/21/2021,02/01/2021,01/04 COVID-19, MRNA-LNP, 23-24, P F, 30 MCG/0.3 mL, 12 YRS AND ABOVE, IM (IKOR METERING-Comirnat) 09/12/2023 Covid-19, Mrna, Lnp-s, Pf, B ivalent, [...] as of this encounter Progress Notes * Kelsie Cheng RN - 02/18/2024 9:32 AM EDT The following documentation summarizes the services provided by [facility] asthe prescribed therapy has been completed. The client was referred to us for home therapy. The ordered therapy was Fluorouracil The home therapy began on: 09/17/23 Per physician order: -the prescribed therapy was completed on: 02/06/24 -the (VAD) will remain in place and will be maintained by the clinical staff at ([facility]): The client and/or caregiver were compliant with therapy administration. The therapy goals were met. The following instructions were provided during our final conversation with the client and/or caregiver: did not speak to client at end of service -care of the device if it is to remain in place, -care of the device insertion site after removal, including reporting of signs and symptoms of infection or other complications, -appropriate disposal of unused waste, supplies and/or medication, -return of equipment and associated accessories, -importance of keeping all follow up appointments Collaboration of Care: -[facility] clinical staff were notified of therapy completion -A discharge summary note was sent to: Dakota Armando MD via Therio/fax documented in this encounter Plan of Treatment Upcoming Encounters Date Type Department Care Team (Late st Contact Info) Description 02/19/2024 9:15 AM EDT Office Visit Hematology/Oncology [place] [address] [place] [phone] Dakota Armando MD [address] [place] [address] 02/19/2024 9:45 AM EDT Nurse Only Hematology/Oncology [facility] Rehana [place] [address] [place], [place] [phone] Rehana, Nurse Hem Onc [facility] [address] [place] [address] 02/19/2024 1:30 PM EDT Pharmacy Pharmacy Hematology Oncology [facility] [address] [place] [address] [facility] [place] Hem/Onc [address] [place] [address] 03/17/2024 9:00 AM EDT Office Visit Hematology/Oncology [place] [address] [place], [place] [phone] Amber Huizar CRNP [address] [place] [address] 07/20/2024 10:15 AM EDT Office Visit Dermatology [facility] [place] [address] [place], [place] [address] Cal Jernigan MD [address] [place], [place] [address] 07/21/2024 1:45 PM EDT Office Visit Hematology/Oncology [facility] Reh[place] [address] [place], [place] [address] Dakota Armando MD [address] [place] [address] 07/24/2024 11:40 AM EDT Office Visit [facility] [address] [address] Sergio Barriga MD [address] [place] [address] Scheduled Procedures Name Priority Associated Diagnoses Date/Ti [...] this encounter Medical Devices Implanted Type Area Coke Drawer Hand Device Identifier Shelf Expiration Date Model / Serial / Lot Duraclip 16mm Xlg Repostn - [id number] Implanted:Qty : 1 on 07/17/2021 by Guillermo Jones DO [place] [facility] [employer] [id number] 01/10/2024 [id number] / / [id number] Stent Viabil Biliary [id number] - [id number] Implanted:Qty : 1 on 07/17/2021 by Guillermo Jones DO at [facility] [employer] [id number] 03/04/2024 [id number] / [id number] / [id number] Port Implant W/8f Poly Cath - [id number] Implanted:Qty : 1 on 09/13/2023 by Gary Rodriguez, at OR [facility] Right: Chest CR BARD : PERIPHERAL VASCULAR [id number] 04/24/2025 [id number] / / [id number] documented as of this encounter Advance Directives Documents on File Type Date Recorded Patient President Finance Company Expl anation Advance Directives and Living Will [...] Agen t (per Health Care Power of Director Of Financial Reporting document) [email or web address] [email or web address] [email or web address] First Alternate Health Care Agent (per Health Care Power of Director Of Financial Reporting document) [email or web address] Care Teams Clerical Warehouseman Relationship Specialty Start Date End Date Sergio Barriga MD [address] [address] PCP - General Family Medicine 08/07/19 documented as of this encounter
--- OUTSIDE RECORDS SUMMARY | 2024-04-18 23:56 | External Medical Summary | Summary of Care ---
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) Procedures UT LEUCOVORIN CALCIUM INJECTION UT FLUOROURACIL INJECTION UT IRINOTECAN INJECTION UT OXALIPLATIN UT FOSAPREPITANT INJECTION BEVACIZUMAB-BVZR, BIOSIMILAR, 10 MG (ZIRABEV), IV UT INJECTION, UDENYCA 0.5 MG Dakota Armando MD [address] [place] [address] Anc Hem/Onc Scenery Rehana DEPT CLOSED - 10/08/23 [address] [place], [place] [address] Referral ID Status Reason Start Date Expiration Date V isits Requested Visits Authorized [id number] Authorized 08/30/2023 11/24/2099 999 [id number] Encounter Details Date Type Department Care Team (Latest Contact Info) Description 01/07/2024 8:30 AM EST Hem/Onc Treatment Hematology/Oncolog y Treatment, [place] [address] [place] [phone] Rehana, Chair 7 Hem Onc Sc[address]ery [address] [place] [address] 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 0 Act miley Multi Vitamin Daily Oral Tablet Take by mouth. 0 Act miley Aspirin 81 MG Oral Tablet Delayed Release Take 1 Tablet by mouth in the morning. 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 04/10 colon-Dr Case [facility] 2 polyps 1 tubular adenoma. Ekvin 5y 2013 sleep study [facility] WNL [address] Elena [facility] Essential hypertension with goal blood pressure less [...] as of this encounter (statuses as of 02/12/2024) Resolved Problems Problem Noted Date Diagnosed Date [...] WNL, antiphos lipids WNL Factor V+heteroqygous. FM JQ-CUJP-UWPVW DIS NEC documented as of this encounter (statuses as of 02/12/2024) Immunizations Name Administration Dates Next Due COVID-19 mRNA, LNP-s, No Pre serve, 2-Dose Series (Broccol-e-games) 01/13/2022,07/21/2021,02/01/2021,01/04 COVID-19, MRNA-LNP, 23-24, P F, 30 MCG/0.3 mL, 12 YRS AND ABOVE, IM ([employer] [facility]) 09/12/2023 Covid-19, Mrna, Lnp-s, Pf, B ivalent, 30 Mcg, IM, 12 yrs and above (Broccol-e-games) 08/16/2022 HEP A - Hepatitis A (Adult [...] Sign Reading Time Taken Comments Blood Pressure 109/68 01/07/2024 8:30 AM EST Pulse 71 01/07/2024 8:30 AM EST Temperature 35.8 C (96.4 F) 01/07/2024 8:30 AM ES T Respiratory Rate 16 01/07/2024 8:30 AM EST Oxygen Saturation 95% 01/07/2024 8:30 AM EST Inhaled Oxygen Concentration - - Weight 63 kg (138 lb 12.8 oz) 01/07/2024 8:30 AM EST Height - - Body Mass Index 20.5 12/02/2023 2:17 PM EST documented in this [...] Nursing Notes * Krysten Valencia RN - 01/07/2024 2:29 PM EST Goals: Patient will remain free from injury. Possible barriers to meeting goals: ambulating with IV pole Stability of the patient: Moderately stable - low risk of patient condition declining or worsening Summary regarding today's goals: Met: pt remained free of harm today Functional status at today's visit: Fully active, [...] symptoms or adverse side effects during treatment. Patient tolerated treatment well without any acute issues or problems. 5FU pump connected and patient is to return in 46 hours for d/c. Patient left facility in stable condition and denied any further needs. * Krysten Valencia RN - 01/07/2024 8:53 AM EST Chair 11. Port accessed, no issues. Patient here for C7 FOLFIRINOX, overall feeling well without any acute issues or complaints. Chemo agents FOLFIRINOX Appetite good Nausea/Vomiting takes PRN medications every couple days and patient says this seems to help preventhis nausea well Diarrhea typically has been getting diarrhea for about 1 day at some point between treatments, which is a big improvement from earlier treatments, when he had diarrhea for 1 week + Constipation no Mucositis no Fatigue on occasion, at times, overall doing fairly well with the last few treatments Bleeding no Infection no Rash no Numbness tingling ongoing cold sensitivity form Oxaliplatin which has typically gone away in 3-4 days but patient says after his last tx, it lasted about 1 week, will monitor for this treatment to see how long it is lasting and educated patient to let us know if it starts to linger for >1 week or leading up to next scheduled treatment. Patient does have poor circulation in hands, which he says has gone on for 10+ years -- he says he hands easily turn white/purple when they get mildly cold.. not a new issues for patient, but this was also discussed. Pain no Radiation no ABN Labs okay for tx, see nurse note from Courtney Levi yesterday regarding labs Alt in Tx: N/A Return in 2 days for pump d/c Safety and Risk for Injury Patient will remain free from injury. Ensure appropriate safety devices are available. Provide and maintain safe environment. * Courtney Plascencia RN - 01/06/2024 11:54 AM EST Alk phos 234, WBC 19.06, ANC 16.46. Reviewed labs with nitza Tripathi to treat. documented in this encounter Plan of Treatment Upcoming Encounters Date Type Department Care Team (Late st Contact Info) Description 02/17/2024 9:10 AM EDT Laboratory Laboratory [facility] [address] [place] [phone] Rehana, Lab Scenery [address] [facility] [place], [place] [address] 02/18/2024 8:45 AM EDT Hem/Onc Treatment Hematology/[address]cology [address] [phone] Rehana, Chair 7 Hem Onc [address] [place] [address] 03/02/2024 9:10 AM EDT Laboratory Laboratory [facility] [place] [address] [place] [address] Rehana, Lab Scenery [address] [place], [place] [address] 03/03/2024 10:30 AM EDT Hem/Onc Treatment Hematology/Oncology Treatment, [place] [address] [facility] [phone] Rehana, Chair 4 Hem Onc Scenery [address] [place], [place] [address] 03/16/2024 8:50 AM EDT Laboratory Laboratory [facility] [place] [address] [place], [place] [phone] Rehana, Lab Scenery [address] [place], [place] [address] 03/17/2024 9:00 AM EDT Office Visit Hematology/Oncology [facility] [place] [address] [place], [place] [phone] Amber Huizar CRNP [address] [place] [address] [place] [address] 03/17/2024 9:30 AM EDT [facility] [address] [place], [place] [phone] Rehana, Chair 8 Hem Onc [facility] [place] [place] [address] [facility] [place] [place], [place] [address] 07/20/2024 10:15 AM EDT Office Visit Dermatology [facility] [place] [address] [place], [place] [address] Cal Jernigan MD [address] [place], [place] [address] 07/21/2024 1:45 PM EDT Office Visit Hematology/Oncology [facility] [address] [place], [place] [phone] Dakota Armando MD [address] [place] [address] 07/24/2024 11:40 AM EDT Office Visit [facility] [address] [place] [address] Sergio Barriga MD [address] [place] [address] Scheduled Orders Name Type Priority Associated Diagnoses Orde r Schedule CA 19-9 Lab STAT 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) Every Month for 4 Occurrences starting 01/07/2024 until 01/07/2025, 1 completed Scheduled Procedures Name Priority Associated Diagnoses Date/Ti [...] this encounter Medical Devices Implanted Type Area Gravity Prospecting Operator Device Identifier Shelf Expiration Date Model / Serial / Lot Duraclip 16mm Xlg Repostn - [id number] Implanted:Qty : 1 on 07/17/2021 by Guillermo Jones DO at [facility] [employer] [id number] 01/10/2024 [id number] / / [id number] Stent Viabil Biliary [id number] - [id number] Implanted:Qty : 1 on 07/17/2021 by Guillermo Jones DO at [facility] [employer] [id number] 03/04/2024 [id number] / [id number] / [id number] Port Implant W/8f Poly Cath - [id number] Implanted:Qty : 1 on 09/13/2023 by Gary Rodriguez DO at OR [facility] Right: Chest CR BARD : PERIPHERAL VASCULAR [id number] 04/24/2025 [id number] / / [id number] documented as of this encounter Results * (ABNORMAL) CA 19-9 (01/20/2024 9:17 AM EST) CA 19-9 540.8(H) <35.0 U/mL 01/20/2024 7:54 PM EST LABORATORY [facility] Blood Venous blood specimen / Unknown Venipuncture / Unknown 01/20/2024 9:17 AM EST 01/20/2024 9:17 AM EST Dakota Armando MD LAB BLOOD ORDERABLES Performing Organization Address City/State/[facility] Co de Phone Number LABORATORY [facility] [address] [place] [address] documented in this encounter Visit Diagnoses Diagnosis 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)- Primary Malignant neoplasm of body of pancreas Encounter for antineoplastic chemotherapy 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 documented in this encounter Administered Medications Inactive Administered Medications - up to 3 most recent administrations Medication Order MAR Action Action Date Dose Rate Site Atropine sulfate inj 0.4 mg 0.4 mg, IV Push, ONCE, On Sat01/07/24 at 0930, For 1 dose, Give before CPT-11 Given 01/07/2024 11:41 AM EST 0.4 mg D5W IV solution Intravenous, at 50 mL/hr, CONTINUOUS, Starting on Sat01/07/24 at 0930, Until Sat01/07/24 at 1855 Start Infusion 01/07/2024 8:45 AM EST 500 mL 50 mL/hr Fluorouracil (5-Fu) 4,300 mg for Home Infusion 4,300 mg (rounded from 4,296 mg = 2,400 mg/m2 1.79 m2 Treatment Plan BSA from Recorded weight), Intravenous, Administer over 46 Hours, Home Infusion Pharmacy to specify base solution and volume., ONCE, 1 dose, On Sat01/07/24 at 1230 Start Infusion 01/07/2024 1:20 PM EST 4,300 mg 3 mL/hr Fosaprepitant Dimeglumine (Emend) 150 mg, ondansetron (Zofran) 16 mg, dexamethasone sodium phosphate 12 mg in NSS 250 mL Infusion 150 mg, IV Piggyback, ONCE, 1 dose, On Sat01/07/24 at 0930, Administer over 30 Minutes, Give 30 minutes prior to chemotherapy. Infuse over 30 minutes. Start Infusion 01/07/2024 8:59 AM EST 150 mg 500 mL/hr irinotecan HCl (Camptosar) 260 mg in D5W 500 mL infusion 260 mg (rounded from 268.5 mg = 150 mg/m2 1.79 m2 Treatment Plan BSA from Recorded weight), IV Piggyback, ONCE, 1 dose, On Sat01/07/24 at 1100, Administer over 90 Minutes, PROTECT FROM LIGHT Start Infusion 01/07/2024 11:41 AM EST 260 mg 333.33 mL/hr leucovorin calcium 700 mg in D5W 250 mL INFUSION 700 mg (rounded from 716 mg = 400 mg/m2 1.79 m2 Treatment Plan BSA from Recorded weight), IV Piggyback, ONCE, 1 dose, On Sat01/07/24 at 1100, Administer over 90 Minutes, Run concurrently with irinotecan immediately prior to 5FU Start Infusion 01/07/2024 11:41 AM EST 700 mg 166.67 mL/hr Oxaliplatin (Eloxatin) 150 mg in D5W 500 mL infusion 150 mg (rounded from 152.15 mg = 85 mg/m2 1.79 m2 Treatment Plan BSA from Recorded weight), IV Piggyback, ONCE, 1 dose, On Sat01/07/24 at 0930, Administer over 120 Minutes, Flush with D5W only! Start Infusion 01/07/2024 9:35 AM EST 150 mg 250 mL/hr sodium chloride 0.9 % flush central line 10 mL 10 mL, IV Push, PRN Other, IV Flush, Starting on Sat01/07/24 at 0849, Until Sat01/07/24 at 1855, For 24 hours, Do not flush if lock, PICC, or central line not in place; IV infusing or unable to flush. 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
--- OUTSIDE RECORDS SUMMARY | 2024-04-18 23:56 | External Medical Summary | Summary of Care ---
Author Name Unknown Organization [facility] Address [address] [address] Phone [phone] Care Team Providers Care Vehicle Damage Appraiser Name Role Phone Sergio Barriga MD Primary Care Provider + Reason for Visit * Reason Onset Date Comments Precert Future 02/14/2024 Gemzar/Abraxane/ Lumakras Encounter Details Date Type Department Care Team (Late st Contact Info) Description 02/14/2024 Telephone Hematology/Oncology [facility] [place] [address] [place] [phone] Dakota Armando MD [address] [place] [address] Precert Future (Gemzar/Abraxane/Lumakr as) Allergies Active Allergy [...] mouth in the morning. 0 Active Pancrelipase (Kvf-Veys-Gbgr) 50787-[address] UNIT Oral Capsule Delayed Release Particles (Creon 94158) 2 cap with meals, 1 with larger [...] -19) 10/16/2022 Coronary artery disease invo lving [place] coronary artery of [place] heart without angina pectoris 08/20/2022 Overview: Severe [...] 04/10 colon-Dr Eller [facility] 2 polyps 1 tubular adenoma. Kevin 5y 2013 sleep study [facility] WNL [address] Elena [facility] Essential hypertension with goal blood pressure less [...] WNL, antiphos lipids WNL Factor V+heteroqygous. FM XL-CFXA-UVLKF DIS NEC documented as of this encounter (statuses as of 02/14/2024) Immunizations Name Administration Dates Next Due COVID-19 mRNA, LNP-s, No Pre serve, 2-Dose Series (OpenSky) 01/13/2022,07/21/2021,02/01/2021,02/1 COVID-19, MRNA-LNP, 23-24, P F, 30 [...] 02/19/2024 9:15 AM EDT Office Visit Hematology/Oncology [facility] [place] [address] [facility] [address] [place] [address] [place] Armando MD [address] [facility] [place] [address] 02/19/2024 9:45 AM EDT Nurse Only Hematology/Oncology [facility] [place] [address] [facility] [place] [phone] Rehana, Nurse Hem Onc [facility] [address] [facility] [place] [address] 03/17/2024 9:00 AM EDT Office Visit Hematology/Oncology [facility] [place] [address] [place] [phone] Amber Huizar CRNP [address] [facility] [address] 07/20/2024 10:15 AM EDT Office Visit Dermatology [facility] [place] [address] [place] [address] [address] Cal Jernigan MD [address] [facility] [place] [address] 07/21/2024 1:45 PM EDT Office Visit Hematology/Oncology [facility] [place] [address] [facility] [place] [phone] [place] Armando MD [address] [facility] [place] [address] 07/24/2024 11:40 AM EDT Office Visit Family Practice [facility] [address] [place] [address] Sergio Barriga MD [address] [place] [address] Scheduled Orders Name Type Priority Associated Diagnoses [...] this encounter Medical Devices Implanted Type Area Tool Turret Lathe Set Up Operator Device Identifier Shelf Expiration Date Model / Serial / Lot Duraclip 16mm Xlg Repostn - [id number] Implanted:Qty : 1 on 07/17/2021 by Guillermo Jones DO at ENDOSCOPY [facility] [employer] [id number] 01/10/2024 [id number] / / [id number] Stent Viabil Biliary [id number] - [id number] Implanted:Qty : 1 on 07/17/2021 by Guillermo Jones DO at ENDOSCOPY [facility] [employer] [id number] 03/04/2024 [id number] / [id number] / [id number] Port Implant W/8f Poly Cath - [id number] Implanted:Qty : 1 on 09/13/2023 by Gary Rodriguez DO at OR [facility] Right: Chest CR BARD : PERIPHERAL VASCULAR [id number] 04/24/2025 [id number] / / [id number] documented as of this encounter Visit Diagnoses Diagnosis 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)- Primary Malignant neoplasm of body of pancreas documented in this encounter Advance Directives Documents on File Type Date Recorded Patient Professor Of Theology Expl anation Advance Directives and Living Will 10/23/2022 4:43 PM Virginie Rollins .PDF Latest Code Status on File Code Status Date Activated Date Inactivated Comments Full Code 07/16/2021 10:04 AM 07/18/2021 6:28 PM This order reflects the patients wishes and were consensually agreed upon. Healthcare Agents on File Name Relationship Healthcare Agent Relationship Communication Virginie Cramer Spouse Health Care Agen mayte (per Health Care Power of Well Service Floorperson document) [email or web address] Temo Cramer Sibling First Alternate Health Care Agent (per Health Care Power of Well Service Floorperson document) [email or web address] Vehicle Damage Appraiser Relationship Specialty Start Date End Date Sergio Barriga MD [address] [place] [address] PCP - General Family Medicine 08/07/19 documented as of this encounter
--- OUTSIDE RECORDS SUMMARY | 2024-04-18 23:56 | External Medical Summary | Summary of Care ---
Author Name Unknown Organization [facility] Address [address] [place] [address] Phone [phone] Care Team Providers Care Director Public Name Role Phone Sergio Barriga MD Primary Care Provider + Reason for Visit * Reason Comments Chemotherapy C7/D1 - FOLFIRINOX * Episode Based Medications (Routine) - Authorized Specialty Diagnoses / Procedures Referred By Linda hu Referred To Contact Diagnoses Encounter for antineoplastic chemotherapy 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) 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) Procedures OR LEUCOVORIN CALCIUM INJECTION OR FLUOROURACIL INJECTION OR IRINOTECAN INJECTION OR OXALIPLATIN OR FOSAPREPITANT INJECTION BEVACIZUMAB-BVZR, BIOSIMILAR, 10 MG (ZIRABEV), IV OR INJECTION, UDENYCA 0.5 MG Dakota Armando MD [address] [place] [address] Anc Hem/Onc Scenery Rehana DEPT CLOSED - 10/08/23 [address] [place], [place] [address] Referral ID Status Reason Start Date Expiration Date V isits Requested Visits Authorized [id number] Authorized 08/30/2023 11/24/2099 999 99 Encounter Details Date Type Department Care Team (Latest Contact Info) Description 01/07/2024 8:30 AM EST Hem/Onc Treatment Hematology/Oncolog y Treatment, [place] [address] [place] [phone] Rehana, Chair 7 Hem Onc [address] [place] [address] 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)*; [...] mouth in the morning. 0 Active Pancrelipase (Lyt-Osmu-Sqhi) [address]7825-[address] UNIT Oral Capsule Delayed Release Particles (Creon 71777) 2 cap with meals, 1 with larger [...] -19) 10/16/2022 Coronary artery disease invo lving [place] coronary artery of [place] heart without angina pectoris 08/20/2022 Overview: Severe [...] lipids WNL Factor V+heteroqygous. 04/10 colon-Dr Case [facility] 2 polyps 1 tubular adenoma. Kevin 6y 2013 sleep study [facility] WNL [address] Elena [facility] Essential hypertension with goal blood [...] WNL, antiphos lipids WNL Factor V+heteroqygous. FM VC-JDWM-LYMIO DIS NEC documented as of this encounter (statuses as of 02/12/2024) Immunizations Name Administration Dates Next Due COVID-19 mRNA, LNP-s, No Pre serve, 2-Dose Series (JotSpot) 01/13/2022,07/21/2021,02/01/2021,01/04 COVID-19, MRNA-LNP, 23-24, P F, 30 MCG/0.3 mL, 12 YRS AND ABOVE, IM ([facility] 09/12/2023 Covid-19, Mrna, Lnp-s, Pf, B ivalent, 30 Mcg, IM, 12 yrs and above (JotSpot) 08/16/2022 HEP A - Hepatitis A (Adult [...] Description 02/17/2024 9:10 AM EDT Laboratory Laboratory [facility] [address] [place] [phone] Rehana, Lab Scenery [address] [facility] [place], [place] [address] 02/18/2024 8:45 AM EDT Hem/Onc Treatment Hematology/Oncology [address], [address] [phone] Rehana, Chair 7 Hem Onc [address] [place] [address] 03/02/2024 9:10 AM EDT Laboratory Laboratory [facility] [place] [address] [place] [address] Rehana, Lab Scenery [address] [place], [place] [address] 03/03/2024 10:30 AM EDT Hem/Onc Treatment Hematology/Oncology Treatment, [place] [facility] [phone] Rehana, Chair 4 Hem Onc Scenery [address] [place], [place] [address] 03/16/2024 8:50 AM EDT Laboratory Laboratory [facility] [place] [address] [place], [place] [phone] Rehana, Lab Scenery [address] [place], [place] [address] 03/17/2024 9:00 AM EDT Office Visit Hematology/Oncology [facility] [place] [address] [place], [place] [phone] Amber Huizar CRNP [address] [place] [address] [place] [address] 03/17/2024 9:30 AM EDT Hem[facility] [address] [place], [place] [phone] Rehana, Chair 8 Hem Onc [facility] [place] [address] 07/20/2024 10:15 AM EDT Office Visit Dermatology [facility] [place] [address] [place], [place] [address] Cal Jernigan MD [address] [place], [place] [address] 07/21/2024 1:45 PM EDT Office Visit Hematology/Oncology [facility] [address] [place], [place] [phone] Dakota Armando MD [address] [place] [address] 07/24/2024 11:40 AM EDT Office Visit [facility] [address] [place] [address] Sergio Barriga MD [address] [place] [address] Scheduled Orders Name Type Priority Associated Diagnoses [...] this encounter Medical Devices Implanted Type Area Door Paneler Device Identifier Shelf Expiration Date Model / Serial / Lot Duraclip 16mm Xlg Repostn - [id number] Implanted:Qty : 1 on 07/17/2021 by Guillermo Jones DO at ENDOSCOPY [facility] [employer] [id number] 01/10/2024 [id number] / / [id number] Stent Viabil Biliary [id number] - [id number] Implanted:Qty : 1 on 07/17/2021 by Guillermo Jones DO at ENDOSCOPY [facility] [employer] REYNALDO [id number] 03/04/2024 [id number] / [id number] / [id number] Port Implant W/8f Poly Cath - [id number] Implanted:Qty : 1 on 09/13/2023 by Gary Rodriguez DO at OR [facility] Right: Chest CR BARD : PERIPHERAL VASCULAR [id number] 04/24/2025 [id number] / / [id number] documented as of this encounter Results * (ABNORMAL) CA 19-9 (01/20/2024 9:17 AM EST) CA 19-9 540.8(H) <35.0 U/mL 01/20/2024 7:54 PM EST LABORATORY [facility] Blood Venous blood specimen / Unknown Venipuncture / Unknown 01/20/2024 9:17 AM EST 01/20/2024 9:17 AM EST Dakota Armando MD LAB BLOOD ORDERABLES Performing Organization Address City/State/[facility] Co de Phone Number LABORATORY [facility] [address] [place] [address] documented in this encounter Visit Diagnoses Diagnosis [...] Documents on File Type Date Recorded Patient Registration Scheduling Specialist Expl anation Advance Directives and Living [...] Agen t (per Health Care Power of Tape Calender document) [email or web address] Temo Bela Sibling First Alternate Health Care Agent (per Health Care Power of Tape Calender document) Care Teams Director Public Relationship Specialty Start Date End Date Sergio Barriga MD [address] [place] [address] PCP - General Family Medicine 08/07/19 documented as of this encounter
--- OUTSIDE RECORDS SUMMARY | 2024-04-18 23:56 | External Medical Summary | Summary of Care ---
Author Name Unknown Organization [facility] Address [address] [facility] [address] Phone [phone] Care Team Providers Care Grain Wafer Machine Operator Name Role Phone Sergio Barriga MD Primary Care Provider + Reason for Visit * Reason Onset Date Comments Precert Future 02/14/2024 Gemzar/Abraxane/ Lumakras Encounter Details Date Type Department Care Team (Late st Contact Info) Description 02/14/2024 Telephone Hematology/Oncology [facility] [place] [address] [place] [phone] Dakota Armando MD [address] [place] [address] Precert Future (Gemzar/Abraxane/Lumakr as) Allergies Active Allergy [...] mouth in the morning. 0 Active Pancrelipase (Wrp-Cvhk-Uwsl) 04305-[address] UNIT Oral Capsule Delayed Release Particles (Creon 12962) 2 cap with meals, 1 with larger [...] -19) 10/16/2022 Coronary artery disease invo lving [place] coronary artery of [place] heart without angina pectoris 08/20/2022 Overview: Severe [...] lipids WNL Factor V+heteroqygous. 04/10 colon-Dr Eller [facility] 2 polyps 1 tubular adenoma. Kevin 6y 2013 sleep study [facility] WNL [address] Elena [facility] Essential hypertension with goal blood [...] WNL, antiphos lipids WNL Factor V+heteroqygous. FM OQ-IBDM-VDIJU DIS NEC documented as of this encounter (statuses as of 02/14/2024) Immunizations Name Administration Dates Next Due COVID-19 mRNA, LNP-s, No Pre serve, 2-Dose Series (Mastodon C) 01/13/2022,07/21/2021,02/01/2021,02/1 COVID-19, MRNA-LNP, 23-24, P F, 30 [...] 02/19/2024 9:15 AM EDT Office Visit Hematology/Oncology [facility] Reh[place] [address] [facility] [place] [phone] Dakota Armando MD 200 [facility] [place] [address] 02/19/2024 9:45 AM EDT Nurse Only Hematology/Oncology [facility] Rehana [place] [address] [place] [phone] Rehana, Nurse Hem Onc [facility] [address] [facility] [place] [address] 02/19/2024 1:30 PM EDT Pharmacy Pharmacy Hematology Oncology [facility] [address] [place] [address] [facility] Hem/Onc [address] [place] [address] 03/17/2024 9:00 AM EDT Office Visit Hematology/Oncology [facility] [place] [address] [facility] [place] [phone] Amber Huizar CRNP [address] [place] [address] 07/20/2024 10:15 AM EDT Office Visit Dermatology [place] [facility] [place] [address] [place] [address] [address] Cal Jernigan MD 200 [facility] [place] [address] 07/21/2024 1:45 PM EDT Office Visit Hematology/Oncology [facility] [place] [address] [facility] [place] [phone] Dakota Armando MD 200 [facility] [place] [address] 07/24/2024 11:40 AM EDT Office Visit Family Practice [facility] [address] [place] [address] Sergio Barriga MD [address] [place] [address] Scheduled Orders Name Type Priority Associated Diagnoses [...] this encounter Medical Devices Implanted Type Area It Project Lead Device Identifier Shelf Expiration Date Model / Serial / Lot Duraclip 16mm Xlg Repostn - [id number] Implanted:Qty : 1 on 07/17/2021 by Guillermo Jones DO at ENDOSCOPY [facility] [employer] [id number] 01/10/2024 [id number] / / [id number] Stent Viabil Biliary [id number] - [id number] Implanted:Qty : 1 on 07/17/2021 by Guillermo Jones DO at ENDOSCOPY [facility] [employer] [id number] 03/04/2024 [id number] / [id number] / [id number] Port Implant W/8f Poly Cath - [id number] Implanted:Qty : 1 on 09/13/2023 by Gary Rodriguez DO at OR [facility] Right: Chest CR BARD : PERIPHERAL VASCULAR [id number] 04/24/2025 [id number] / / [id number] documented as of this encounter Visit Diagnoses Diagnosis 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)- Primary Malignant neoplasm of body of pancreas documented in this encounter Advance Directives Documents on File Type Date Recorded Patient Clipper And Turner Expl anation Advance Directives and Living Will [...] Agen t (per Health Care Power of Transfill Technician document) [email or web address] Temo Cramer Sibling First Alternate Health Care Agent (per Health Care Power of Transfill Technician document) Care Teams Grain Wafer Machine Operator Relationship Specialty Start Date End Date Sergio Barriga MD [address] [place] [address] PCP - General Family Medicine 08/07/19 documented as of this encounter
--- OUTSIDE RECORDS SUMMARY | 2024-04-18 23:56 | External Medical Summary | Summary of Care ---
Author Name Unknown Organization [facility] Address [address] [facility] [address] Phone [phone] Care Team Providers Care Drilling Manager Name Role Phone Sergio Barriga MD Primary Care Provider + Reason for Visit * Reason Onset Date Comments Precert Future 02/14/2024 Gemzar/Abraxane/ Lumakras Encounter Details Date Type Department Care Team (Late st Contact Info) Description 02/14/2024 Telephone Hematology/Oncology [facility] [place] [address] [place] [phone] Dakota Armando MD [address] [place] [address] Precert Future (Gemzar/Abraxane/Lumakr as) Allergies Active Allergy [...] mouth in the morning. 0 Active Pancrelipase (Qwe-Ymtm-Anhk) 68833-[address] UNIT Oral Capsule Delayed Release Particles (Creon 48158) 2 cap with meals, 1 with larger [...] lipids WNL Factor V+heteroqygous. 04/10 colon-Dr Eller [facility] 2 polyps 1 tubular adenoma. Kevin 6y 2013 sleep study [facility] WNL [address] Elena [facility] Essential hypertension with goal blood [...] WNL, antiphos lipids WNL Factor V+heteroqygous. FM NQ-TNGL-DWZXB DIS NEC documented as of this encounter (statuses as of 02/14/2024) Immunizations Name Administration Dates Next Due COVID-19 mRNA, LNP-s, No Pre serve, 2-Dose Series (GoPlaceIt) 01/13/2022,07/21/2021,02/01/2021,01/04 COVID-19, MRNA-LNP, 23-24, P F, 30 MCG/0.3 mL, 12 YRS AND ABOVE, IM (SageFire-Comirnat) 09/12/2023 Covid-19, Mrna, Lnp-s, Pf, B ivalent, 30 Mcg, IM, 12 yrs and above (GoPlaceIt) 08/16/2022 HEP A - Hepatitis A (Adult [...] Miscellaneous Notes * Telephone Encounter - Karen Johnson OSA [...] Office Visit Hematology/Oncology [place] [facility] [place] [address] [place] [phone] Dakota Armando MD [address] [place] [address] 02/19/2024 9:45 AM EDT Nurse Only Hematology/Oncology [facility] [place] [address] [place] [phone] [place], Nurse Hem Onc [facility] 200 [facility] [place] [address] 03/17/2024 9:00 AM EDT Office Visit Hematology/Oncology [facility] Rehana [place] [address] [place] [phone] Amber Huizar CRNP [address] [place], [place] [address] [address] 07/20/2024 10:15 AM EDT Office Visit Dermatology [facility] [place] 200 [facility] [place] [address] Cal Jernigan MD 200 [facility] [place] [address] 07/21/2024 1:45 PM EDT Office Visit Hematology/Oncology [facility] [place] 200 [facility] [place] [phone] Dakota Armando MD 200 [facility] [place] [address] 07/24/2024 11:40 AM EDT Office Visit Family Practice [facility] [address] [place] [address] Sergio Barriga MD [address] [place] [address] Scheduled Orders Name Type Priority Associated Diagnoses [...] this encounter Medical Devices Implanted Type Area Counselor/Art Therapist Device Identifier Shelf Expiration Date Model / Serial / Lot Duraclip 16mm Xlg Reposn - [id number] Implanted:Qty : 1 on 07/17/2021 by Guillermo Jones DO at [facility] [employer] [id number] 01/10/2024 [id number] / / [id number] Stent Viabil Biliary [id number] - [id number] Implanted:Qty : 1 on 07/17/2021 by Guillermo Jones DO at [facility] [employer] REYNALDO [id number] 03/04/2024 [id number] / [id number] / [id number] Port Implant W/8f Poly Cath - [id number] Implanted:Qty : 1 on 09/13/2023 by Gary Rodriguez DO at OR [facility] Right: Chest CR BARD : PERIPHERAL VASCULAR [id number] 04/24/2025 [id number] / / [id number] documented as of this encounter Visit Diagnoses Diagnosis 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)- Primary Malignant neoplasm of body of pancreas documented in this encounter Advance Directives Documents on File Type Date Recorded Patient Checker And Packer Expl anation Advance Directives and Living Will [...] Agen t (per Health Care Power of Trim Setter document) [email or web address] Temo Bela Sibling First Alternate Health Care Agent (per Health Care Power of Trim Setter document) Care Teams Drilling Manager Relationship Specialty Start Date End Date Sergio Barriga MD [address] [place] [address] PCP - General Family Medicine 08/07/19 documented as of this encounter
--- OUTSIDE RECORDS SUMMARY | 2024-04-18 23:56 | External Medical Summary | Summary of Care ---
Author Name Unknown Organization [facility] Address [address] [facility] [address] Phone [phone] Care Team Providers Care Medical Insurance Coder Name Role Phone Sergio Barriga MD Primary Care Provider + Reason for Visit * Reason Onset Date Comments Precert Future 02/14/2024 Gemzar/Abraxane/ Lumakras Encounter Details Date Type Department Care Team (Late st Contact Info) Description 02/14/2024 Telephone Hematology/Oncology [facility] [place] [address] [place] [phone] Dakota Armando MD [address] [place] [address] Precert Future (Gemzar/Abraxane/Lumakr as) Allergies Active Allergy [...] mouth in the morning. 0 Active Pancrelipase (Kuy-Rcav-Etvy) 50088-27074 UNIT Oral Capsule Delayed Release Particles (Creon 30805) 2 cap with meals, 1 with larger [...] 2013 sleep study [facility] WNL [address] Elena [facility] [...] WNL, antiphos lipids WNL Factor V+heteroqygous. FM NU-OUMX-NRPNP DIS NEC documented as of this encounter (statuses as of 02/14/2024) Immunizations Name Administration Dates Next Due COVID-19 mRNA, LNP-s, No Pre serve, 2-Dose Series (RentShare) 01/13/2022,07/21/2021,02/01/2021,01/04 COVID-19, MRNA-LNP, 23-24, P F, 30 MCG/0.3 mL, 12 YRS AND ABOVE, IM ([employer]-Comirnat) 09/12/2023 Covid-19, Mrna, Lnp-s, Pf, B ivalent, 30 Mcg, IM, 12 yrs and above (RentShare) 08/16/2022 HEP A - Hepatitis A (Adult [...] Hematology/Oncology [facility] [address] [place] [phone] Dakota Armando MD [address] [place] [address] 02/19/2024 9:45 AM EDT Nurse Only Hematology/Oncology [facility] [place] [address] [place] [phone] Park, Nurse Hem Onc [facility] 200 [facility] [place] [address] 03/17/2024 9:00 AM EDT Office Visit Hematology/Oncology [facility] Reh[place] [address] [place] [phone] Amber Huizar CRNP [address] [place], [place] [address] [address] 07/20/2024 10:15 AM EDT Office Visit Dermatology [facility] [place] 200 [facility] [place] [address] Cal Jernigan MD 200 [facility] [place] [address] 07/21/2024 1:45 PM EDT Office Visit Hematology/Oncology [facility] [place] 200 [facility] [place] [phone] Dakota Armando MD 200 [facility] [place] [address] 07/24/2024 11:40 AM EDT Office Visit Family Practice [facility] [address] [place] [address] Sergio Barriga MD [address] [place] [address] Scheduled Orders Name Type Priority Associated Diagnoses [...] this encounter Medical Devices Implanted Type Area Photogrammetric Technician Device Identifier Shelf Expiration Date Model / Serial / Lot Duraclip 16mm Xlg Reposn - [id number] Implanted:Qty : 1 on 07/17/2021 by Guillermo Jones DO at ENDOSCOPY [facility] [employer] [id number] 01/10/2024 [id number] / / [id number] Stent Viabil Biliary [id number] - [id number] Implanted:Qty : 1 on 07/17/2021 by Guillermo Jones DO at ENDOSCOPY [facility] [employer] REYNALDO [id number] 03/04/2024 [id number] / [id number] / [id number] Port Implant W/8f Poly Cath - [id number] Implanted:Qty : 1 on 09/13/2023 by Gary Rodriguez DO at OR [facility] Right: Chest CR BARD : PERIPHERAL VASCULAR [id number] 04/24/2025 [id number] / / [id number] documented as of this encounter Visit Diagnoses Diagnosis 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)- Primary Malignant neoplasm of body of pancreas documented in this encounter Advance Directives Documents on File Type Date Recorded Patient Concrete Curer Expl anation Advance Directives and Living Will [...] Agen t (per Health Care Power of Formula Checker document) [email or web address] Temo Bela Sibling First Alternate Health Care Agent (per Health Care Power of Formula Checker document) [email or web address] Care Teams Medical Insurance Coder Relationship Specialty Start Date End Date Sergio Barriga MD [address] [place] [address] PCP - General Family Medicine 08/07/19 documented as of this encounter
--- OUTSIDE RECORDS SUMMARY | 2024-04-18 23:56 | External Medical Summary | Summary of Care ---
Author Name Unknown Organization [facility] Address [address] [place] [address] Phone [phone] Care Team Providers Care Steam Shovel Operating Engineer Name Role Phone Sergio Barriga MD Primary Care Provider + Encounter Details Date Type Department Care Team (Late st Contact Info) Description 02/14/2024 Orders Only Hematology/Oncology [facility] [place] [facility] [place] [phone] Dakota Armando MD 200 [facility] [place] [address] Allergies Active Allergy Reactions Criticality Noted Date [...] mouth in the morning. 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 FM NJ-FFIK-PKPBI DIS NEC documented as of this encounter (statuses as of 02/14/2024) Immunizations Name Administration Dates Next Due COVID-19 mRNA, LNP-s, No Pre serve, 2-Dose Series (ViewRay) 01/13/2022,07/21/2021,02/01/2021,01/04 COVID-19, MRNA-LNP, 23-24, P F, 30 MCG/0.3 mL, 12 YRS AND ABOVE, IM ([employer]-ComirnatSpecialtyCare) 09/12/2023 Covid-19, Mrna, Lnp-s, Pf, B ivalent, [...] Description 02/17/2024 9:10 AM EDT Laboratory Laboratory [facility] [place] [address] [place] [phone] Reh[place], Lab [place] [address] [place] [address] [address] 02/18/2024 8:45 AM EDT Hem/Onc Treatment Hematology/Oncology Treatment [place] [address] [place] [phone] Rehana, Chair 7 Hem Onc [facility] [address] [address] 02/19/2024 9:15 AM EDT Office Visit Hematology/Oncology [facility] Rehana [place] [address] [place] [phone] Dakota Armando MD [address] [place] [address] 02/19/2024 9:45 AM EDT Nurse Only Hematology/Oncology [facility] [place] [address] [place] [phone] Rehana, Nurse Hem Onc [address] [place] [place] [address] 03/02/2024 9:10 AM EDT Laboratory Laboratory [facility] Rehana [place] [address] [place] [phone] Rehana, Lab [address] [address] 03/03/2024 10:30 AM EDT [facility] 200 [facility], [place] [phone] Rehana, Chair 4 Hem Onc [address] [place], [place] [address] 03/16/2024 8:50 AM EDT Laboratory Laboratory [facility] [place] [address] [place], [place] [phone] Rehana, Lab [facility] 200 [facility] [place], [place] [address] 03/17/2024 9:00 AM EDT Office Visit Hematology/Oncology [facility] [address] [place], [place] [phone] Amber Huizar CRNP [address] [place] [address] 03/17/2024 9:30 AM EDT Hem[facility] 200 [facility], [place] [phone] Rehana, Chair 8 Hem Onc [facility] 200 [facility] [place], [place] [address] 07/20/2024 10:15 AM EDT Office Visit Dermatology [facility] [place] [address] [place], [place] [address] Cal Jernigan MD [address] [place] [address] 07/21/2024 1:45 PM EDT Office Visit Hematology/Oncology [facility] [place] [address] [place], [place] [phone] Dakota Armando MD [address] [place] [address] 07/24/2024 11:40 AM EDT Office Visit Family Practice [facility] [address] [place] [address] Sergio Barriga MD [address] [place] [address] Scheduled Procedures Name Priority Associated Diagnoses Date/Ti [...] this encounter Medical Devices Implanted Type Area Joint Runner Device Identifier Shelf Expiration Date Model / Serial / Lot Duraclip 16mm Xlg Repostn - [id number] Implanted:Qty : 1 on 07/17/2021 by Guillermo Jones DO at ENDOSCOPY [facility] [employer] REYNALDO [id number] 01/10/2024 [id number] / / [id number] Stent Viabil Biliary [id number] - [id number] Implanted:Qty : 1 on 07/17/2021 by Guillermo Jones DO at ENDOSCOPY [facility] [employer] REYNALD[employer] [id number] 03/04/2024 [id number] / [id number] / [id number] Port Implant W/8f Poly Cath - [id number] Implanted:Qty : 1 on 09/13/2023 by Gary Rodriguez DO at OR [facility] Right: Chest CR BARD : PERIPHERAL VASCULAR [id number] 04/24/2025 [id number] / / [id number] documented as of this encounter Advance Directives Documents on File Type Date Recorded Patient Cap Parts Cutter Expl anation Advance Directives and Living Will [...] Agen t (per Health Care Power of Fund Accounting Manager document) [email or web address] Temo Bela Sibling First Alternate Health Care Agent (per Health Care Power of Fund Accounting Manager document) [email or web address] Care Teams Steam Shovel Operating Engineer Relationship Specialty Start Date End Date Sergio Barriga MD [address] [place] [address] PCP - General Family Medicine 08/07/19 documented as of this encounter
--- OUTSIDE RECORDS SUMMARY | 2024-04-18 23:56 | External Medical Summary | Summary of Care ---
Author Name Unknown Organization [facility] Address [address] [place] [address] Phone [phone] Care Team Providers Care Clinical Reviewer Name Role Phone Sergio Barriga MD Primary Care Provider + Reason for Visit * Reason Comments Medication Management Encounter Details Date Type Department Care Team (Late st Contact Info) Description 02/14/2024 1:00 PM EDT Pharmacy Pharmacy Hematology Oncology [facility] [address] [place] [address] [facility] Hem/Onc [address] [place], [place] [phone] Malignant neoplasm of pancreas, unspecified location of [...] mouth in the morning. 0 Active Pancrelipase (Tcl-Isgc-Tuxz) 81034-775[address] UNIT Oral Capsule Delayed Release Particles (Creon 26947) 2 cap with meals, 1 with larger [...] -19) 10/16/2022 Coronary artery disease invo lving [place] coronary artery of [place] heart without angina pectoris 08/20/2022 Overview: Severe [...] 04/10 colon-Dr Eller [facility] 2 polyps 1 tubular adenoma. Kevin 6y 2013 sleep study [facility] WNL [address] Elena [facility] Essential hypertension with goal blood [...] WNL, antiphos lipids WNL Factor V+heteroqygous. FM CI-GWEG-GUZWD DIS NEC documented as of this encounter (statuses as of 02/14/2024) Immunizations Name Administration Dates Next Due COVID-19 mRNA, LNP-s, No Pre serve, 2-Dose Series (Buildingeye) 01/13/2022,07/21/2021,02/01/2021,01/04 COVID-19, MRNA-LNP, 23-24, P F, 30 [...] this encounter Progress Notes * Jen Teixeira, [facility] - 02/14/2024 3:35 PM EDT MEDICATION THERAPY MANAGEMENT SOTORASIB INITIAL INTAKE NOTE Rafael Cramer [phone] Patient Phone Numbers Communication: Chart review Treatment: Medication: Sotorasib (Lumakras) Indication/Staging/Diagnosis Code: met pancreatic cancer, KRAS G12C mutation / C25.1 Dose: 960mg daily Administration: +/- food Start Date: TBD Primary Package Delivery Driver/Oncologist: Dr. Gina Armando Additional Therapy: Gemcitabine Abraxane Supportive Care Meds: Olanzapine Ondansetron Prochlorperazine Prophylactic Meds: none Review of therapy: Line of therapy: third Previous therapy: 08/07/21: Whipple's procedure 08/2021-01/2022: gemcitabine + capecitabine 09/17/23-01/2024: mFOLFIRINOX Reviewed dosage prescribed for appropriateness (based on indication, hepatic function,renal function, etc): no changes Are appropriate supportive care medications prescribed? Yes Are appropriate prophylactic medications prescribed? No, none needed Have baseline labs/tests been obtained? Yes Has hepatitis B screening been completed? Yes Potential drug-drug drug-herbal, drug-food, drug-disease interactions: Yes, Pantoprazole / Sotorasib: Inhibitors of the Proton Pump (PPIs and PCABs) may decrease the serum concentration of Sotorasib Recommendation: Avoid coadministration of sotorasib and proton pump inhibitors, potassium-competitive acid blockers, or histamine H2 receptor antagonists. If coadministration of sotorasib and gastricacid suppressing medications cannot be avoided, use antacids instead of histamine H2 receptor antagonists (H2RAs), proton pump inhibitors (PPIs), or potassium-competitive acid blockers (PCABs) and administer sotorasib 4 hours before or 10 hours after oral antacid administration. Action: TE sent to PCP and Dr. Armando re DDI Atorvastatin / Sotorasib: may decrease the serum concentration of Atorvastatin Recommendation: Monitor for decreased atorvastatin effects Action: Will financial services counselor pt on DDI and monitor lipid panel 8 weeks after treatment start (ordered future labs) Trazodone / Sotorasib: may decrease the serum concentration of TraZODone Recommendation: Monitor for reduced trazodone efficacy Action: will financial services counselor pt on DDI and monitor for decreased efficacy Alprazolam / Sotorasib: may decrease the serum concentration of ALPRAZolam Recommendation: Monitor for reduced alprazolam efficacy Action: Will financial services counselor pt on DDI and monitor alprazolam use The Hematology/Oncology Oral Chemotherapy Clinic will assess medication compliance at each patient encounter Assessment and Plan: Per TE 02/13/24, pt to complete consent and have nurse education 02/19/24 [place] plan uploaded and sent to Dr. Armando for signature [facility] to follow up in 3 days to assess consent completion, beacon plan signature, and auth status Yes/no Date Action Taken [place] plan entered? yes 02/14/24 Consent completed? no To be completed 02/19/24 Intro/med rec completed? N/A Previously enrolled in [place] Precert completed? Test claim completed? Financial assistance needed? Physician signature? Rx released? Education completed? Follow up: 3 days Jen Teixeira, SmithaD, BCOP Clinical Pharmacist, [facility] Oral Chemotherapy [facility] 02/14/2024, 3:57 PM Monitoring Parameters: Estimated CrCl Serum creatinine: 1 mg/dL 02/03/24 0928 Estimated creatinine clearance: 57.6 mL/min Hepatitis panel Latest Reference Range & [...] Latest Reference Range & Units 02/03/24 09:28 WBC 4.00 - 10.80 K/uL 12.78 (H) RBC 4.50 - 5.25 M/uL 3.99 HGB 14.0 - 16.8 g/dL 11.3 (L) HCT 40.0 - 48.4 % 36.6 (L) MCV 82.0 - 99.5 fL 91.7 MCH 27.0 - 34.0 pg 28.3 MCHC 32.0 - 36.0 g/dL 30.9 RDW 11.5 - 15.5 % 18.9 PLT 140 - 400 K/uL 249 MPV 6.6 - 11.1 fL 9.7 CBC WITH WBC DIFFERENTIAL Rpt ! Absolute Neutrophils 1.80 - 7.70 K/uL 9.40 (H) Latest Reference Range & Units 02/03/24 09:28 Albumin 3.8 - 5.0 g/dL 3.6 (L) AST 10 - 50 U/L 41 ALT 10 - 50 U/L 49 Alkaline Phosphatase 35 - 130 U/L 226 (H) Bilirubin, Total <=1.2 mg/dL 0.2 Time Spent on Encounter: 21 - 25 minutes Encounter Group: Oncology Encounter Interventions Item Category: Oral Chemotherapy Sotorasib Problem/Rationale: Indication: Needs additional medication therapy - Untreated condition, - Synergistic therapy [place] Plan Review: Initial Plan/upload Pharmacist Intervention(s): Drug Interaction Screen, Lab monitoring, Made recommendation to provider, Orders labs, and Referral review Magnitude of Intervention: Monitoring with direction (Level 1) documented in this encounter Plan of Treatment Upcoming Encounters Date Type Department Care Team (Late st Contact Info) Description 02/19/2024 9:15 AM EDT Office Visit Hematology/Oncology [facility] [place] [address] [place] [phone] Dakota Armando MD [address] [place] [address] 02/19/2024 9:45 AM EDT Nurse Only Hematology/Oncology [facility] Rehana [place] [address] [place], [place] [phone] [place], Nurse Hem Onc [facility] [address] [place] [address] 02/19/2024 1:30 PM EDT Pharmacy Pharmacy Hematology Oncology [facility] [address] [place] [address] [facility] Hem/Onc [address] [place] [address] 03/17/2024 9:00 AM EDT Office Visit Hematology/Oncology [facility] Reh[place] [address] [place], [place] [phone] Amber Huizar CRNP [address] [place] [address] 07/20/2024 10:15 AM EDT Office Visit Dermatology [facility] Reh[place] [address] [place], [place] [address] Cal Jernigan MD [address] [place], [place] [address] 07/21/2024 1:45 PM EDT Office Visit Hematology/Oncology [facility] Rehana [place] [address] [place], [place] [phone] Dakota Armando MD [address] [place], [place] [address] 07/24/2024 11:40 AM EDT Office Visit [facility] [address] [facility] [place] [address] Sergio Barriga MD [address] [place] [address] Scheduled Procedures Name Priority Associated Diagnoses Date/Ti [...] this encounter Medical Devices Implanted Type Area Spray Booth Operator Device Identifier Shelf Expiration Date Model / Serial / Lot Duraclip 16mm Xlg Repostn - [id number] Implanted:Qty : 1 on 07/17/2021 by Guillermo Jones DO at ENDOSCOPY [facility] [employer] REYNALDO [id number] 01/10/2024 [id number] / / [id number] Stent Viabil Biliary [id number] - [id number] Implanted:Qty : 1 on 07/17/2021 by Guillermo Jones DO at ENDOSCOPY [facility] [employer] [id number] 03/04/2024 [id number] / [id number] / [id number] Port Implant W/8f Poly Cath - [id number] Implanted:Qty : 1 on 09/13/2023 by Gary Rodriguez DO at OR [facility] Right: Chest CR BARD : PERIPHERAL VASCULAR [id number] 04/24/2025 [id number] / / [id number] documented as of this encounter Visit Diagnoses Diagnosis Malignant neoplasm of pancreas, unspecified location of malignancy (HCC)- Primary documented in this encounter Advance Directives Documents on File Type Date Recorded Patient Transportation Attendant Expl anation Advance Directives and Living [...] Agen t (per Health Care Power of Porcelain Finisher document) [email or web address] Temo Bela Sibling First Alternate Health Care Agent (per Health Care Power of Porcelain Finisher document) Care Teams Clinical Reviewer Relationship Specialty Start Date End Date Sergio Barriga MD [address] [place] [address] PCP - General Family Medicine 08/07/19 documented as of this encounter
--- OUTSIDE RECORDS SUMMARY | 2024-04-18 23:56 | External Medical Summary | Summary of Care ---
Author Name Unknown Organization [facility] Address [address] [place] [address] Phone [phone] Care Team Providers Care Camp Manager Name Role Phone Sergio Barriga MD Primary Care Provider + Encounter Details Date Type Department Care Team (Late st Contact Info) Description 02/14/2024 Orders Only Hematology/Oncology Sharif Kimball [place] 200 [facility] [place] [address] Dakota Armando MD 200 [facility] [place] [address] 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)*; Encounter for long-term (current) use of medications Allergies Active Allergy Reactions Criticality Noted Date [...] mouth in the morning. 0 Active Pancrelipase (Kyq-Uvac-Kimn) 26642-[address] UNIT Oral Capsule Delayed Release Particles (Creon 14135) 2 cap with meals, 1 with larger [...] -19) 10/16/2022 Coronary artery disease invo lving agdaagux coronary artery of agdaagux heart without angina pectoris 08/20/2022 Overview: Severe [...] WNL Factor V+heteroqygous. 04/10 colon-Dr Eller [facility] 2 polyps 1 tubular adenoma. Kevin 6y 2013 sleep study [facility] WNL [address] Elena [facility] Essential hypertension with goal blood pressure less [...] WNL, antiphos lipids WNL Factor V+heteroqygous. FM LE-DJFN-AGUKW DIS NEC documented as of this encounter (statuses as of 02/14/2024) Immunizations Name Administration Dates Next Due COVID-19 mRNA, LNP-s, No Pre serve, 2-Dose Series ([employer]) 01/13/2022,07/21/2021,02/01/2021,01/04 COVID-19, MRNA-LNP, 23-24, P F, 30 MCG/0.3 mL, 12 YRS AND ABOVE, IM ([employer]) 09/12/2023 Covid-19, Mrna, Lnp-s, Pf, B ivalent, 30 Mcg, IM, 12 yrs and above ([employer]) 08/16/2022 HEP A - Hepatitis A (Adult [...] 02/19/2024 9:15 AM EDT Office Visit Hematology/Oncology [facility] [place] [place] [address] [place] [phone] Dakota Armando MD 200 [facility] [place] [address] 02/19/2024 9:45 AM EDT Nurse Only Hematology/Oncology [facility] Rehana [place] [address] [phone] Rehana, Nurse Hem Onc [place] [address] [address] [place] [address] 02/19/2024 1:30 PM EDT Pharmacy Pharmacy Hematology Oncology [facility] [address] [place] [address] [facility] Hem[facility]Onc [address] [place] [address] 03/17/2024 9:00 AM EDT Office Visit Hematology/Oncology [place] [facility] [place] [address] [phone] Amber Huizar CRNP [address] [place] [address] 07/20/2024 10:15 AM EDT Office Visit Dermatology [place] [address] Cal Jernigan MD 200 [facility] [place], [place] [address] 07/21/2024 1:45 PM EDT Office Visit Hematology/Oncology [facility] 200 [facility] [place] [phone] Dakota Armando MD 200 [facility] [place], [place] [address] 07/24/2024 11:40 AM EDT Office Visit Family Practice [facility] [address] [place] [address] Sergio Barriga MD [address] [place] [address] Scheduled Orders Name Type Priority Associated Diagnoses Orde r Schedule LIPID PANEL WITH DIRECT LDL IF TG IS HIGH Lab Routine Encounter for long-term (current) use of medications Expected: 05/16/2024 (Approximate), Expires: 08/16/2024 Scheduled Procedures Name Priority Associated Diagnoses Date/Ti [...] this encounter Medical Devices Implanted Type Area Government Affairs Director Device Identifier Shelf Expiration Date Model / Serial / Lot Duraclip 16mm Xlg Repostn - [id number] Implanted:Qty : 1 on 07/17/2021 by Guillermo Jones DO [place] [facility] [employer] [id number] 01/10/2024 [id number] / / [id number] Stent Viabil Biliary [id number] - [id number] Implanted:Qty : 1 on 07/17/2021 by Guillermo Jones DO [place] [facility] [employer] [place] [id number] 03/04/2024 [id number] / [id number] / [id number] Port Implant W/8f Poly Cath - [id number] Implanted:Qty : 1 on 09/13/2023 by Gary Rodriguez DO at OR [facility] Right: Chest CR BARD : PERIPHERAL VASCULAR [id number] 04/24/2025 [id number] / / [id number] documented as of this encounter Visit Diagnoses Diagnosis 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)- Primary Malignant neoplasm of body of pancreas Encounter for long-term (current) use of medications Encounter for long-term (current) use of other medications documented in this encounter Advance Directives Documents on File Type Date Recorded Patient Human Services Case Manager Expl anation Advance Directives and Living [...] Agen t (per Health Care Power of Founder / Ceo document) Temo Cramer Sibling First Alternate Health Care Agent (per Health Care Power of Founder / Ceo document) [email or web address] Care Teams Camp Manager Relationship Specialty Start Date End Date Sergio Barriga MD [address] [place] [address] PCP - General Family Medicine 08/07/19 documented as of this encounter
--- OUTSIDE RECORDS SUMMARY | 2024-04-18 23:56 | External Medical Summary | Summary of Care ---
Author Name Unknown Organization [facility] Address [address] [place] [address] Phone [phone] Care Team Providers Care Representative Personal Service Name Role Phone Sergio Barriga MD Primary Care Provider + Reason for Visit * Reason Comments Chemotherapy C7/D1 - FOLFIRINOX * Episode Based Medications (Routine) - Authorized Specialty Diagnoses / Procedures Referred By Linda hu Referred To Contact Diagnoses Encounter for antineoplastic chemotherapy 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) 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) Procedures ID LEUCOVORIN CALCIUM INJECTION ID FLUOROURACIL INJECTION ID IRINOTECAN INJECTION ID OXALIPLATIN ID FOSAPREPITANT INJECTION BEVACIZUMAB-BVZR, BIOSIMILAR, 10 MG (ZIRABEV), IV ID INJECTION, UDENYCA 0.5 MG Dkaota Armando MD [address] [place] [address] Anc Hem/Onc Scenery Rehana DEPT CLOSED - 10/08/23 [address] [place], [place] [address] Referral ID Status Reason Start Date Expiration Date V isits Requested Visits Authorized [id number] Authorized 08/30/2023 11/24/2099 999 99 Encounter Details Date Type Department Care Team (Latest Contact Info) Description 01/07/2024 8:30 AM EST Hem/Onc Treatment Hematology/Oncolog y Treatment, [place] [address] [place] [address] Rehana, Chair 7 Hem Onc Scenery [address] [place] [address] 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)*; [...] mouth in the morning. 0 Active Pancrelipase (Ysv-Fnod-Lukv) 39903-93432 UNIT Oral Capsule Delayed Release Particles (Creon 87263) 2 cap with meals, 1 with larger [...] WNL, antiphos lipids WNL Factor V+heteroqygous. FM PW-VKMJ-JJERX DIS NEC documented as of this encounter (statuses as of 02/12/2024) Immunizations Name Administration Dates Next Due COVID-19 mRNA, LNP-s, No Pre serve, 2-Dose Series ([employer]) 01/13/2022,07/21/2021,02/01/2021,01/04 COVID-19, MRNA-LNP, 23-24, P F, 30 MCG/0.3 mL, 12 YRS AND ABOVE, IM ([employer] [facility]) 09/12/2023 Covid-19, Mrna, Lnp-s, Pf, B ivalent, 30 Mcg, IM, 12 yrs and above ([employer]) 08/16/2022 HEP A - Hepatitis A (Adult [...] Description 02/17/2024 9:10 AM EDT Laboratory Laboratory [facility] [address] [place] [phone] Rehana, Lab Scenery [address] [facility] [place], [place] [address] 02/18/2024 8:45 AM EDT Hem/Onc Treatment Hematology/Oncology Treatment, [address] [address] Rehana, Chair 7 Hem Onc Scene [address] [place] [address] 03/02/2024 9:10 AM EDT Laboratory Laboratory [facility] [place] [address] [place] [address] Rehana, Lab Scenery [address] [place], [place] [address] 03/03/2024 10:30 AM EDT Hem/Onc Treatment [facility]ematology[facility]cology [facility] [place] [facility] [phone] Rehana, Chair 4 Hem Onc Scenery [address] [place], [place] [address] 03/16/2024 8:50 AM EDT Laboratory Laboratory [facility] [place] [address] [place], [place] [phone] Rehana, Lab Scenery [address] [place], [place] [address] 03/17/2024 9:00 AM EDT Office Visit Hematology/Oncology [facility] [place] [address] [place], [place] [phone] Amber Huizar CRNP [address] [place] [address] [place] [address] 03/17/2024 9:30 AM EDT Hem[facility]Onc [facility] [address] [place], [place] [phone] Rehana, Chair 8 Hem Onc [facility] 200 [facility] [place], [place] [address] 07/20/2024 10:15 AM EDT Office Visit Dermatology [facility] [place] [address] [place], [place] [address] Cal Jernigan MD [address] [place], [place] [address] 07/21/2024 1:45 PM EDT Office Visit Hematology/Oncology [facility] [address] [place], [place] [phone] Dakota Armando MD [address] [place] [address] 07/24/2024 11:40 AM EDT Office Visit [facility] [address] [place] [address] Sergio Barriga MD [address] [place] [address] Scheduled Orders Name Type Priority Associated Diagnoses [...] this encounter Medical Devices Implanted Type Area Sand Digger Device Identifier Shelf Expiration Date Model / Serial / Lot Duraclip 16mm Xlg Repostn - [id number] Implanted:Qty : 1 on 07/17/2021 by Guillermo Jones DO [place] [facility] [place] [employer] [id number] 01/10/2024 [id number] / / [id number] Stent Viabil Biliary 25qur3fq - [id number] Implanted:Qty : 1 on 07/17/2021 by Guillermo Jones DO [place] [facility] [employer] [place] [id number] 03/04/2024 [id number] / [id number] / [id number] Port Implant W/8f Poly Cath - [id number] Implanted:Qty : 1 on 09/13/2023 by Gary Rodriguez DO at OR [facility] Right: Chest CR BARD : PERIPHERAL VASCULAR [id number] 04/24/2025 [id number] / / [id number] documented as of this encounter Results * (ABNORMAL) CA 19-9 (01/20/2024 9:17 AM EST) CA 19-9 540.8(H) <35.0 U/mL 01/20/2024 7:54 PM EST [facility] Blood Venous blood specimen / Unknown Venipuncture / Unknown 01/20/2024 9:17 AM EST 01/20/2024 9:17 AM EST Dakota Armando MD LAB BLOOD ORDERABLES Performing Organization Address City/State/[facility] Co de Phone Number LAB[facility]ATORY [facility] [address] [place] [address] documented in this encounter Visit Diagnoses Diagnosis [...] Documents on File Type Date Recorded Patient Daycare Director Expl anation Advance Directives and Living [...] Agen t (per Health Care Power of Back Winder document) [email or web address] Temo Bela Sibling First Alternate Health Care Agent (per Health Care Power of Back Winder document) [email or web address] Care Teams Representative Personal Service Relationship Specialty Start Date End Date Sergio Barriga MD [address] [place] [address] PCP - General Family Medicine 08/07/19 documented as of this encounter
--- OUTSIDE RECORDS SUMMARY | 2024-04-18 23:56 | External Medical Summary | Summary of Care ---
Author Name Unknown Organization [facility] Address [address] [place] [address] Phone [phone] Care Team Providers Care Paediatric Physiotherapist Name Role Phone Sergio Barriga MD Primary [...] 0.5 MG Dakota Armando MD [address] [place] [address] Anc Hem/Onc Scenery Rehana DEPT CLOSED - 10/08/23 [address] [place], [place] [address] Referral ID Status Reason Start Date Expiration Date V isits Requested Visits Authorized [id number] Authorized 08/30/2023 11/24/2099 999 99 Encounter Details Date Type Department Care Team (Latest Contact Info) Description 01/07/2024 8:30 AM EST Hem/Onc Treatment Hematology/Oncolog y Treatment, [place] [address] [place] [address] Rehana, Chair 7 Hem Onc Scenery [address] [place] [address] 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)*; [...] mouth in the morning. 0 Active Pancrelipase (Zuy-Chon-Gyfa) 36[address] UNIT Oral Capsule Delayed Release Particles (Creon 29905) 2 cap with meals, 1 with larger [...] -19) 10/16/2022 Coronary artery disease invo lving kashia coronary artery of kashia heart without angina pectoris 08/20/2022 Overview: Severe [...] 04/10 colon-Dr Case [facility] 2 polyps [...] WNL, antiphos lipids WNL Factor V+heteroqygous. FM UZ-MANA-LIZMA DIS NEC documented as of this encounter (statuses as of 02/12/2024) Immunizations Name Administration Dates Next Due COVID-19 mRNA, LNP-s, No Pre serve, 2-Dose Series ([employer]) 01/13/2022,07/21/2021,02/01/2021,01/04 COVID-19, MRNA-LNP, 23-24, P F, 30 MCG/0.3 mL, 12 YRS AND ABOVE, IM ([facility]) 09/12/2023 Covid-19, Mrna, Lnp-s, Pf, B ivalent, 30 Mcg, IM, 12 yrs and above ([employer]) 08/16/2022 HEP A - Hepatitis A (Adult [...] Description 02/17/2024 9:10 AM EDT Laboratory Laboratory [facility] [address] [place] [phone] Rehana, Lab Scenery [address] [facility] [place], [place] [address] 02/18/2024 8:45 AM EDT Hem/Onc Treatment Hematology/Oncology Treatment, [address] [address] Rehana, Chair 7 Hem Onc Scene [address] [place] [address] 03/02/2024 9:10 AM EDT Laboratory Laboratory [facility] [place] [address] [place] [address] Rehana, Lab Scenery [address], [place] [address] 03/03/2024 10:30 AM EDT Hem/Onc Treatment Hematology/Oncology Treatment, [place] 200 [facility] [phone] Rehana, Chair 4 Hem Onc Scenery [address] [place], [place] [address] 03/16/2024 8:50 AM EDT Laboratory Laboratory [facility] [place] [address] [place], [place] [phone] Rehana, Lab Scenery [address] [place], [place] [address] 03/17/2024 9:00 AM EDT Office Visit Hematology/Oncology [facility] [place] [address] [place], [place] [phone] Amber Huizar CRNP [address] [place] [address] [place] [address] 03/17/2024 9:30 AM EDT Hem[facility]c [facility] [address] [place], [place] [address] Rehana, Chair 8 Hem Onc [facility] 200 [facility] [place], [place] [address] 07/20/2024 10:15 AM EDT Office Visit Dermatology [facility] [place] [address] [place], [place] [address] Cal Jernigan MD [address] [place], [place] [address] 07/21/2024 1:45 PM EDT Office Visit Hematology/Oncology [facility] [address] [place], [place] [phone] Dakota Armando MD [address] [place] [address] 07/24/2024 11:40 AM EDT Office Visit [facility] [address] [place] [address] Sergio Barriga MD [address] [place] [address] Scheduled Orders Name Type Priority Associated Diagnoses [...] this encounter Medical Devices Implanted Type Area Senior Web Analyst Device Identifier Shelf Expiration Date Model / Serial / Lot Duraclip 16mm Xlg Repostn - [id number] Implanted:Qty : 1 on 07/17/2021 by Guillermo Jones DO at [place]COPY [facility] [employer] [id number] 01/10/2024 [id number] / / [id number] Stent Viabil Biliary [id number] - [id number] Implanted:Qty : 1 on 07/17/2021 by Guillermo Jones DO at ENDOSCOPY [facility] [employer] [place] [id number] 03/04/2024 [id number] / [id number] / [id number] Port Implant W/8f Poly Cath - [id number] Implanted:Qty : 1 on 09/13/2023 by Gary Rodriguez DO at OR [facility] Right: Chest CR BARD : PERIPHERAL VASCULAR [id number] 04/24/2025 [id number] / / [id number] documented as of this encounter Results * (ABNORMAL) CA 19-9 (01/20/2024 9:17 AM EST) CA 19-9 540.8(H) <35.0 U/mL 01/20/2024 7:54 PM EST LABORATORY [facility] Blood Venous blood specimen / Unknown Venipuncture / Unknown 01/20/2024 9:17 AM EST 01/20/2024 9:17 AM EST Dakota Armando MD LAB BLOOD ORDERABLES Performing Organization Address City/State/[facility] Co de Phone Number LABORATORY [facility] [address] [place] [address] documented in this encounter Visit Diagnoses Diagnosis [...] Documents on File Type Date Recorded Patient Associate Java Developer Expl anation Advance Directives and Living Will [...] Agen t (per Health Care Power of Morning Show Producer document) [email or web address] First Alternate Health Care Agent (per Health Care Power of Morning Show Producer document) Care Teams Paediatric Physiotherapist Relationship Specialty Start Date End Date Sergio Barriga MD [address] [place] [address] PCP - General Family Medicine 08/07/19 documented as of this encounter
--- OUTSIDE RECORDS SUMMARY | 2024-04-18 23:56 | External Medical Summary | Summary of Care ---
Author Name Unknown Organization [facility] Address [address] [place] [address] Phone [phone] Care Team Providers Care Learning And Development Consultant Name Role Phone Sergio Barriga MD Primary Care Provider + Reason for Visit * Reason Onset Date Comments Medication Update 02/14/2024 Encounter Details Date Type Department Care Team (Late st Contact Info) Description 02/14/2024 Telephone Pharmacy Hematology Oncology [address] [phone] Jen Teixeira, [facility] [address] [place] [address] Medication Update Allergies Active Allergy Reactions Criticality [...] mouth in the morning. 0 Active Pancrelipase (Gow-Zhwk-Oxhx) 09[address] UNIT Oral Capsule Delayed Release Particles (Creon 32936) 2 cap with meals, 1 with larger [...] -19) 10/16/2022 Coronary artery disease invo lving [place] coronary artery of [place] heart without angina pectoris 08/20/2022 Overview: [...] study [facility] WNL [address] Elena S[facility]TH [...] WNL, antiphos lipids WNL Factor V+heteroqygous. FM BV-MDLO-XBSDH DIS NEC documented as of this encounter (statuses as of 02/14/2024) Immunizations Name Administration Dates Next Due COVID-19 mRNA, LNP-s, No Pre serve, 2-Dose Series ([employer]) 01/13/2022,07/21/2021,02/01/2021,01/04 COVID-19, MRNA-LNP, 23-24, P F, 30 MCG/0.3 mL, 12 YRS AND ABOVE, IM ([facility] [employer] [facility]) 09/12/2023 Covid-19, Mrna, Lnp-s, Pf, B ivalent, 30 Mcg, IM, 12 yrs and above ([employer]) 08/16/2022 HEP A - Hepatitis A (Adult [...] Telephone Encounter - Jen Teixeira RPh - 02/14/2024 3:59 PM EDT A drug [...] (if available): 1. Lumakras (sotorasib) [prescribing information]. [place], [place]: [employer]; March 2021. Jen Teixeira, PharmD, BCOP Clinical Pharmacist, [facility] Oral Chemotherapy [facility] 02/14/2024, 4:00 PM documented in this encounter Plan of Treatment Upcoming Encounters Date Type Department Care Team (Late st Contact Info) Description 02/19/2024 9:15 AM EDT Office Visit Hematology/Oncology Sharif Kimball [place] [address] [place] [address] Dakota Armando MD [address] [place], [place] [address] 02/19/2024 9:45 AM EDT Nurse Only Hematology/Oncology [facility] Rehana [place] [address] [place], [place] [address] [place], Nurse Hem Onc [facility] [address] [place], [place] [address] 02/19/2024 1:30 PM EDT Pharmacy Pharmacy Hematology Oncology [facility] [address] [place] [address] [facility] Hem/Onc [address] [place] [address] 03/17/2024 9:00 AM EDT Office Visit Hematology/Oncology [facility] [place] [address] [place], [place] [address] Amber Huizar CRNP [address] [place] [address] 07/20/2024 10:15 AM EDT Office Visit Dermatology [facility] [place] [address] [place], [place] [address] Cal Jernigan MD [address] [place], [place] [address] 07/21/2024 1:45 PM EDT Office Visit Hematology/Oncology [facility] [place] [address] [place], [place] [address] Dakota Armando MD [address] [place], [place] [address] 07/24/2024 11:40 AM EDT Office Visit [facility] [address] [place] [address] Sergio Barriga MD [address] [place] [address] Scheduled Procedures Name Priority Associated Diagnoses Date/Ti [...] this encounter Medical Devices Implanted Type Area Supervisor Rubber Covering Device Identifier Shelf Expiration Date Model / Serial / Lot Duraclip 16mm Xlg Repostn - [id number] Implanted:Qty : 1 on 07/17/2021 by Guillermo Jones DO at ENDOSCOPY [facility] [employer] REYNALDO [id number] 01/10/2024 [id number] / / [id number] Stent Viabil Biliary [id number] - [id number] Implanted:Qty : 1 on 07/17/2021 by Guillermo Jones DO at ENDOSCOPY [facility] [employer] 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
--- OUTSIDE RECORDS SUMMARY | 2024-04-18 23:57 | External Medical Summary | Summary of Care ---
Author Name Unknown Organization [facility] Address [address] [place] [address] Phone [phone] Care Team Providers Care Graphic Art Technician Name Role Phone Sergio Barriga MD Primary Care Provider + Reason for Visit * Reason Comments Chemotherapy C7/D1 - FOLFIRINOX * Episode Based Medications (Routine) - Authorized Specialty Diagnoses / Procedures Referred By Linda hu Referred To Contact Diagnoses Encounter for antineoplastic chemotherapy 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) 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) Procedures [place] LEUCOVORIN CALCIUM INJECTION [place] FLUOROURACIL INJECTION [place] IRINOTECAN INJECTION [place] OXALIPLATIN [place] FOSAPREPITANT INJECTION BEVACIZUMAB-BVZR, BIOSIMILAR, 10 MG (ZIRABEV), IV [place] INJECTION, UDENYCA 0.5 MG Dakota Armando MD [address] [place] [address] Anc Hem/Onc Scenery Rehana DEPT CLOSED - 10/08/23 [address] [place], [place] [address] Referral ID Status Reason Start Date Expiration Date V isits Requested Visits Authorized [id number] Authorized 08/30/2023 11/24/2099 999 99 Encounter Details Date Type Department Care Team (Latest Contact Info) Description 01/07/2024 8:30 AM EST Hem/Onc Treatment Hematology/Oncolog y Treatment, [place] [address] [place] [address] Rehana, Chair 7 Hem Onc Scenery [address] [place] [address] 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)*; [...] mouth in the morning. 0 Active Pancrelipase (Lur-Robh-Fudu) 28773-[address] UNIT Oral Capsule Delayed Release Particles (Creon 29014) 2 cap with meals, 1 with larger [...] -19) 10/16/2022 Coronary artery disease invo lving [place] coronary artery of [place] heart without angina pectoris 08/20/2022 Overview: Severe [...] lipids WNL Factor V+heteroqygous. 04/10 colon-Dr Case [facility] [place] 2 polyps 1 tubular adenoma. Kevin 5y 2013 sleep study [facility] [place] WNL [address] Elena [facility] [place] Essential hypertension with goal blood pressure [...] WNL, antiphos lipids WNL Factor V+heteroqygous. FM TA-DJKY-WFMYK DIS NEC documented as of this encounter (statuses as of 02/12/2024) Immunizations Name Administration Dates Next Due COVID-19 mRNA, LNP-s, No Pre serve, 2-Dose Series ([employer]) 01/13/2022,07/21/2021,02/01/2021,01/04 COVID-19, MRNA-LNP, 23-24, P F, 30 MCG/0.3 mL, 12 YRS AND ABOVE, IM ([facility]) 09/12/2023 Covid-19, Mrna, Lnp-s, Pf, B ivalent, 30 Mcg, IM, 12 yrs and above ([employer]) 08/16/2022 HEP A - Hepatitis A (Adult [...] Description 02/17/2024 9:10 AM EDT Laboratory Laboratory [facility] [address] [place] [phone] Rehana, Lab Scenery [address] [facility] [place], [place] [address] 02/18/2024 8:45 AM EDT Hem/Onc Treatment Hematology/[address] [phone] Rehana, Chair 7 Hem Onc Scene [address] [place] [address] 03/02/2024 9:10 AM EDT Laboratory Laboratory [facility] [place] [address] [place] [address] Rehana, Lab Scenery [address] [place], [place] [address] 03/03/2024 10:30 AM EDT Hem/Onc Treatment [facility] [place] [facility] [phone] Rehana, Chair 4 Hem Onc Scenery [address] [place], [place] [address] 03/16/2024 8:50 AM EDT Laboratory Laboratory [facility] [place] [address] [place], [place] [phone] Rehana, Lab Scenery [address] [place], [place] [address] 03/17/2024 9:00 AM EDT Office Visit Hematology/Oncology [facility] [place] [address] [place], [place] [phone] Amber Huizar CRNP [address] [place] [address] [place] [address] 03/17/2024 9:30 AM EDT [facility] [address] [place], [place] [phone] Rehana, Chair 8 Hem Onc [facility] [place] [address] 07/20/2024 10:15 AM EDT Office Visit Dermatology [facility] [place] [address] [place], [place] [address] Cal Jernigan MD [address] [place], [place] [address] 07/21/2024 1:45 PM EDT Office Visit Hematology/Oncology [facility] [address] [place], [place] [phone] Dakota Armando MD [address] [place] [address] 07/24/2024 11:40 AM EDT Office Visit [facility] [address] [place] [address] Sergio Barriga MD [address] [place] [address] Scheduled Orders Name Type Priority Associated Diagnoses [...] this encounter Medical Devices Implanted Type Area Power Tool Repairer Device Identifier Shelf Expiration Date Model / Serial / Lot Duraclip 16mm Xlg Repostn - [id number] Implanted:Qty : 1 on 07/17/2021 by Guillermo Jones DO at ENDOSCOPY [facility] [employer] [id number] 01/10/2024 [id number] / / [id number] Stent Viabil Biliary [id number] - [id number] Implanted:Qty : 1 on 07/17/2021 by Guillermo Jones DO at ENDOSCOPY [facility] [employer] [place]O [id number] 03/04/2024 [id number] / [id number] / [id number] Port Implant W/8f Poly Cath - [id number] Implanted:Qty : 1 on 09/13/2023 by Gary Rodriguez DO at OR [facility] Right: Chest CR BARD : PERIPHERAL VASCULAR [id number] 04/24/2025 [id number] / / [id number] documented as of this encounter Results * (ABNORMAL) CA 19-9 (01/20/2024 9:17 AM EST) CA 19-9 540.8(H) <35.0 U/mL 01/20/2024 7:54 PM EST LABORATORY [facility] Blood Venous blood specimen / Unknown Venipuncture / Unknown 01/20/2024 9:17 AM EST 01/20/2024 9:17 AM EST Dakota Armando MD LAB BLOOD ORDERABLES Performing Organization Address City/State/[facility] Co de Phone Number LABORATORY [facility] [address] [place] [address] documented in this encounter Visit Diagnoses Diagnosis [...] Documents on File Type Date Recorded 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
--- OUTSIDE RECORDS SUMMARY | 2024-04-18 23:57 | External Medical Summary | Summary of Care ---
Author Name Unknown Organization [facility] Address [address] [place] [address] Phone [phone] Care Team Providers Care Treating Plant Pumper Name Role Phone Sergio Barriga MD Primary Care Provider + Reason for Visit * Reason Comments Chemotherapy C8D1 Folfirinox * Episode Based Medications (Routine) - Authorized Specialty Diagnoses / Procedures Referred By Linda hu Referred To Contact Diagnoses Encounter for antineoplastic chemotherapy 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) 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) Procedures [place] LEUCOVORIN CALCIUM INJECTION DC FLUOROURACIL INJECTION DC IRINOTECAN INJECTION DC OXALIPLATIN DC FOSAPREPITANT INJECTION BEVACIZUMAB-BVZR, BIOSIMILAR, 10 MG (ZIRABEV), IV [place] INJECTION, UDENYCA 0.5 MG Dakota Armando MD [address] [place], [place] [address] Anc Hem/Onc [address] [place] DEPT CLOSED - 10/08/23 [address] [place] [address] Referral ID Status Reason Start Date Expiration Date V isits Requested Visits Authorized [id number] Authorized 08/30/2023 11/24/2099 999 99 Encounter Details Date Type Department Care Team (Latest Contact Info) Description 01/21/2024 9:15 AM EST Hem/Onc Treatment Hematology/Oncolog y Treatment, [place] [address] [place] [address] Rehana, Chair 8 Hem Onc Scenery [address] [place] [address] Encounter for antineoplastic chemotherapy*; 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); 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) Allergies Active Allergy Reactions Criticality Noted Date Comments Lisinopril Cough Low 08/07/2019 documented as of this encounter (statuses as of 02/11/2024) Medications Medication Sig Dispensed Refills Start Date End Date Status Boost 100 Calorie Smart Oral Liquid Take by mouth. 0 Act miley Multi Vitamin Daily Oral Tablet Take by mouth. 0 Act miley Aspirin 81 MG Oral Tablet Delayed Release Take 1 Tablet by mouth in the morning. 0 Active Pancrelipase (Fmj-Pahd-Toex) 70874-[address] UNIT Oral Capsule Delayed Release Particles (Creon 40204) 2 cap with meals, 1 with larger [...] as of this encounter (statuses as of 02/11/2024) Active Problems Problem Noted Date Diagnosed Date Malignant neoplasm of body of pancreas Metastasis to liver 08/30/2023 Encounter for antineoplastic chemotherapy 2022 History of carcinoma of pancreas 07/18/2023 Post-viral cough syndrome 07/09/2023 Upper airway cough syndrome 07/09/2023 History of 2019 novel coronavirus disease (COVID -19) 10/16/2022 Coronary artery disease invo lving [place] coronary artery of [place] heart without angina pectoris 08/20/2022 Overview: [...] lipids WNL Factor V+heteroqygous. 04/10 colon-Dr Case [facility] 2 polyps 1 tubular adenoma. Kevin 6y 2013 sleep study [facility] WNL [address] Elena [facility] Essential hypertension with goal blood pressure [...] as of this encounter (statuses as of 02/11/2024) Resolved Problems Problem Noted Date Diagnosed Date [...] WNL, antiphos lipids WNL Factor V+heteroqygous. FM ME-SYPQ-ISOVT DIS NEC documented as of this encounter (statuses as of 02/11/2024) Immunizations Name Administration Dates Next Due COVID-19 mRNA, LNP-s, No Pre serve, 2-Dose Series ([email or web address]) 01/13/2022,07/21/2021,02/01/2021,01/04 COVID-19, MRNA-LNP, 23-24, P F, 30 MCG/0.3 mL, 12 YRS AND ABOVE, IM ([facility]) 09/12/2023 Covid-19, Mrna, Lnp-s, Pf, B ivalent, 30 Mcg, IM, 12 yrs and above ([email or web address]) 08/16/2022 HEP A - Hepatitis A (Adult [...] Sign Reading Time Taken Comments Blood Pressure 124/87 01/21/2024 9:15 AM EST Pulse 75 01/21/2024 9:15 AM EST Temperature 36.5 C (97.7 F) 01/21/2024 9:15 AM ES T Respiratory Rate 16 01/21/2024 9:15 AM EST Oxygen Saturation 97% 01/21/2024 9:15 AM EST Inhaled Oxygen Concentration - - Weight 62.2 kg (137 lb 3.2 oz) 01/21/2024 9:15 A M EST Height - - Body Mass Index 20.26 12/02/2023 2:17 PM EST documented in this [...] as of this encounter Nursing Notes * Demi Wolff RN - 01/21/2024 2:12 PM EST Safety and Risk for Injury Patient will remain free from injury. Ensure appropriate safety devices are available. Provide and maintain safe environment. Goals: Patient will remain free from injury. Possible barriers to meeting goals: ambulation with IV pole Stability of the patient: Moderately stable - low risk of patient condition declining or worsening Summary regarding today's goals: Met: Pt remained free of injury during treatment today Patient tolerated treatment well and was connected to home 5FU infusion pump. He was discharged in stable condition. No coverage needed today. * Demi Wolff RN - 01/21/2024 9:49 AM EST Chair 12 Chemotherapy/Immunotherapy agents: 5FU, IRINOTECAN, LEUCOVORIN, and OXALIPLATIN Consent for chemotherapy drug treatment complete, dated, and signed? yes, date - 09/04/23 Treatment lab parameters met? Yes Has treatment weight changed > than 10%? No Treatment preauthorized? Yes VITALS Filed Vitals: 01/21/24 0915 BP: 124/87 Pulse: 75 Resp: 16 Temp: 36.5 C (97.7 F) TempSrc: Tympanic SpO2: 97% Weight: 62.2 kg (137 lb 3.2 oz) Urine protein: N/A Patient [...] OTHER: denies any additional symptoms PAIN: 0 Pt reports cold sensitivity with treatments, now lasting almost the full 2 weeks between treatments. He denies numbness/tingling, just cold sensitivity and he is cautious with eating/drinking cold things. Denies any other complaints today. documented in this encounter Plan of Treatment Upcoming Encounters Date Type Department Care Team (Late st Contact Info) Description 02/17/2024 9:10 AM EDT Laboratory Laboratory [facility] [place] [address] [place] [phone] Rehana, Lab Scenery [address] [place], [place] [address] 02/18/2024 8:45 AM EDT Hem/Onc Treatment [facility]ematology[facility] [place] [facility] [address] Rehana, Chair 7 Hem Onc Scenery [address] [place] [address] 03/02/2024 9:10 AM EDT Laboratory Laboratory [facility] [place] [address] [place] [address] Rehana, Lab Scenery [address] [facility] [place] [address] 03/03/2024 10:30 AM EDT Hem/Onc Treatment Hematology/Oncology Treatment, [place] 200 [facility] [address] [place] [address] Rehana, Chair 4 Hem Onc Scenery [address] [place], [place] [address] 03/16/2024 8:50 AM EDT Laboratory Laboratory [facility] [place] [address] [place] [address] Rehana, Lab Scenery [address] [facility] [place] [address] 03/17/2024 9:00 AM EDT Office Visit Hematology/Oncology [facility] [place] [address] [place] [phone] Amber Huizar CRNP [address] [facility] [place] [address] 03/17/2024 9:30 AM EDT Hem/Onc Treatment Hematology/Oncology Treatment, [place] [address] [facility] [address] [place] [phone] Rehana, Chair 8 Hem Onc [address] [place] [address] 07/20/2024 10:15 AM EDT Office Visit Dermatology [facility] [place] 200 [facility] [place] [address] Cal Jernigan MD 200 [facility] [place] [address] 07/21/2024 1:45 PM EDT Office Visit Hematology/Oncology [facility] [place] 200 [facility] [place] [phone] Dakota Armando MD 200 [facility] [place] [address] 07/24/2024 11:40 AM EDT Office Visit Family Practice [facility] [address] [facility] [place] [address] Sergio Barriga MD 132 [facility] [place] [address] Scheduled Procedures Name Priority Associated Diagnoses Date/Ti [...] this encounter Medical Devices Implanted Type Area Financial Planning Advisor Device Identifier Shelf Expiration Date Model / Serial / Lot Duraclip 16mm Xlg Repostn - [id number] Implanted:Qty : 1 on 07/17/2021 by Guillermo Jones DO at [facility]COPY [facility] [employer] [id number] 01/10/2024 [id number] / / [id number] Stent Viabil Biliary [id number] - [id number] Implanted:Qty : 1 on 07/17/2021 by Guillermo Jones DO at [facility]OS[facility] [employer] [id number] 03/04/2024 [id number] / [id number] / [id number] Port Implant W/8f Poly Cath - [id number] Implanted:Qty : 1 on 09/13/2023 by Gary Rodriguez DO at OR [facility] Right: Chest CR BARD : PERIPHERAL VASCULAR [id number] 04/24/2025 [id number] / / [id number] documented as of this encounter Visit Diagnoses [...] mg 0.4 mg, IV Push, ONCE, On Sat01/21/24 at 1000, For 1 dose, Give before CPT-11 Given 01/21/2024 12:24 PM EST 0.4 mg D5W IV solution Intravenous, at 50 mL/hr, CONTINUOUS, Starting on Sat01/21/24 at 1000, Until Sat01/21/24 at 1816 Start Infusion 01/21/2024 9:35 AM EST 500 mL 50 mL/hr Fluorouracil (5-Fu) 4,300 mg for Home Infusion 4,300 mg (rounded from 4,296 mg = 2,400 mg/m2 1.79 m2 Treatment Plan BSA from Recorded weight), Intravenous, Administer over 46 Hours, Home Infusion Pharmacy to specify base solution and volume., ONCE, 1 dose, On Sat01/21/24 at 1230 Start Infusion 01/21/2024 2:08 PM EST 4,300 mg 3 mL/hr Fosaprepitant Dimeglumine (Emend) 150 mg, ondansetron (Zofran) 16 mg, dexamethasone sodium phosphate 12 mg in NSS 250 mL Infusion 150 mg, IV Piggyback, ONCE, 1 dose, On Sat01/21/24 at 1000, Administer over 30 Minutes, Give 30 minutes prior to chemotherapy. Infuse over 30 minutes. Start Infusion 01/21/2024 9:42 AM EST 150 mg 500 mL/hr irinotecan HCl (Camptosar) 260 mg in D5W 500 mL infusion 260 mg (rounded from 268.5 mg = 150 mg/m2 1.79 m2 Treatment Plan BSA from Recorded weight), IV Piggyback, ONCE, 1 dose, On Sat01/21/24 at 1100, Administer over 90 Minutes, PROTECT FROM LIGHT Start Infusion 01/21/2024 12:24 PM EST 260 mg 333.33 mL/hr leucovorin calcium 700 mg in D5W 250 mL INFUSION 700 mg (rounded from 716 mg = 400 mg/m2 1.79 m2 Treatment Plan BSA from Recorded weight), IV Piggyback, ONCE, 1 dose, On Sat01/21/24 at 1100, Administer over 90 Minutes, Run concurrently with irinotecan immediately prior to 5FU Start Infusion 01/21/2024 12:24 PM EST 700 mg 166.67 mL/hr Oxaliplatin (Eloxatin) 150 mg in D5W 500 mL infusion 150 mg (rounded from 152.15 mg = 85 mg/m2 1.79 m2 Treatment Plan BSA from Recorded weight), IV Piggyback, ONCE, 1 dose, On Sat01/21/24 at 1000, Administer over 120 Minutes, Flush with D5W only! 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
--- OUTSIDE RECORDS SUMMARY | 2024-04-18 23:57 | External Medical Summary | Summary of Care ---
Author Name Unknown Organization [facility] Address [address] [place] [address] Phone [phone] Care Team Providers Care Second Grade Teacher Name Role Phone Sergio Barriga MD Primary Care Provider + Reason for Visit * Reason Comments Procedure Pump d/c * Episode Based Medications (Routine) - Authorized Specialty Diagnoses / Procedures Referred By Linda hu Referred To Contact Diagnoses Encounter for antineoplastic chemotherapy 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) 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) Procedures [place] LEUCOVORIN CALCIUM INJECTION [place] FLUOROURACIL INJECTION [place] IRINOTECAN INJECTION [place] OXALIPLATIN [place] FOSAPREPITANT INJECTION BEVACIZUMAB-BVZR, BIOSIMILAR, 10 MG (ZIRABEV), IV [place] INJECTION, UDENYCA 0.5 MG Dakota Armando MD [address] [place], [place] [address] Anc Hem/Onc [facility] DEPT CLOSED - 10/08/23 [address] [place] [address] Referral ID Status Reason Start Date Expiration Date V isits Requested Visits Authorized [id number] Authorized 08/30/2023 11/24/2099 999 99 Encounter Details Date Type Department Care Team (Latest Contact Info) Description 01/09/2024 11:30 AM EST Immunization/ Injection Hematology/Oncology Treatment, [place] [address] [place] [address] Nurse, Med 4 [address] [place] [address] Encounter for antineoplastic chemotherapy*; Metastasis to [...] mouth in the morning. 0 Active Pancrelipase (Yoz-Lpxo-Iafq) 56897-[address] UNIT Oral Capsule Delayed Release Particles (Creon 16928) 2 cap with meals, 1 with larger [...] FOR SLEEP 30 Tablet 2 12/27/2023 Active Hospital, Clinic, or Other Facility Administered Medication Ordered Dose Route Frequency Start Date End Date Status Fluorouracil (5-Fu) 4,300 mg in NSS 138 mL infusion 4300 mg IV CONTINUOUS 01/07/2024 01/09/2024 Discontinued documented as of this encounter (statuses as of 02/12/2024) Active Problems Problem Noted Date Diagnosed Date Malignant neoplasm of body of pancreas 3 Metastasis to liver 08/30/2023 Encounter for antineoplastic chemotherapy 2022 History of carcinoma of pancreas 07/18/2023 Post-viral cough syndrome 07/09/2023 Upper airway cough syndrome 07/09/2023 History of 2019 novel coronavirus disease (COVID -19) 10/16/2022 Coronary artery disease invo lving [place] coronary artery of [place] heart without angina pectoris 08/20/2022 Overview: Severe [...] WNL, antiphos lipids WNL Factor V+heteroqygous. FM TC-IUJL-QCBFZ DIS NEC documented as of this encounter (statuses as of 02/12/2024) Immunizations Name Administration Dates Next Due COVID-19 mRNA, LNP-s, No Pre serve, 2-Dose Series (RebelMail) 01/13/2022,07/21/2021,02/01/2021,01/04 COVID-19, MRNA-LNP, 23-24, P F, 30 MCG/0.3 mL, 12 YRS AND ABOVE, IM ([facility]) 09/12/2023 Covid-19, Mrna, Lnp-s, Pf, B ivalent, 30 Mcg, IM, 12 yrs and above (RebelMail) 08/16/2022 HEP A - Hepatitis A (Adult [...] of this encounter Nursing Notes * Krysten Valencia, RN - 01/09/2024 11:43 AM EST Chair 11. Patient arrived today s/p 46 hours of 5FU infusion. Port flushed with NSS, blood return noted, and port locked with Heparin. Port needle removed. Patient left facility today in stable condition and denied further needs at this time. documented in this encounter Plan of Treatment Upcoming Encounters Date Type Department Care Team (Late st Contact Info) Description 02/17/2024 9:10 AM EDT Laboratory Laboratory [facility] [place] [address] [place] [id number] Rehana, Lab Scenery [address] [place], [place] [address] 02/18/2024 8:45 AM EDT Hem/Onc Treatment Hematology/Oncology Treatment, [place] [address] [facility], [place] [address] Rehana, Chair 7 Hem Onc Scenery [address] [place], [place] [address] 03/02/2024 9:10 AM EDT Laboratory Laboratory [facility] [place] [address] [place], [place] [address] Rehana, Lab Scenery [address] [facility] [place], [place] [address] 03/03/2024 10:30 AM EDT Hem/Onc Treatment Hematology/Oncology Treatment, [place] [address] [facility], [place] [address] Rehana, Chair 4 Hem Onc Scenery [address] [place], [place] [address] 03/16/2024 8:50 AM EDT Laboratory Laboratory [facility] [place] [address] [place], [place] [address] Rehana, Lab Scenery [address] [place], [place] [address] 03/17/2024 9:00 AM EDT Office Visit Hematology/Oncology [facility] [place] [address] [place], [place] [address] Amber Huizar CRNP [address] [place] [address] [place] [address] 03/17/2024 9:30 AM EDT Hem/Onc Treatment Hematology/Oncology Treatment, [place] [address] [place], [place] [address] Rehana, Chair 8 Hem Onc Scenery [address] [place] [address] 07/20/2024 10:15 AM EDT Office Visit Dermatology [facility] [address] [facility] [place] [address] Cal Jernigan MD [address] [facility] [place] [address] 07/21/2024 1:45 PM EDT Office Visit Hematology/Oncology [facility] [address] [place] [address] Dakota Armando MD [address] [place] [address] 07/24/2024 11:40 AM EDT Office Visit Family Practice [facility] [address] [place] [address] Sergio Barriga MD [address] [place] [address] Scheduled Procedures Name Priority Associated Diagnoses Date/Ti [...] this encounter Medical Devices Implanted Type Area Mechanical Engineering Officer Device Identifier Shelf Expiration Date Model / Serial / Lot Duraclip 16mm Xlg Repostn - [id number] Implanted:Qty : 1 on 07/17/2021 by Guillermo Jones DO at ENDOSCOPY [facility] [place] [employer] RE[employer] [id number] 01/10/2024 [id number] / / [id number] Stent Viabil Biliary [id number] - [id number] Implanted:Qty : 1 on 07/17/2021 by Guillermo Jones DO at ENDOSCOPY [facility] [employer] [employer] [id number] 03/04/2024 [id number] / [id number] / [id number] Port Implant W/8f Poly Cath - [id number] Implanted:Qty : 1 on 09/13/2023 by Gary Rodriguez DO at OR [facility] Right: Chest CR BARD : PERIPHERAL VASCULAR [id number] 04/24/2025 [id number] / / [id number] documented as of this encounter Visit Diagnoses Diagnosis Encounter for antineoplastic chemotherapy- Primary 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) Malignant neoplasm of body of pancreas documented in this encounter Administered Medications Inactive Administered Medications - up to 3 most recent administrations Medication Order MAR Action Action Date Dose Rate Site hEParin 100 UNIT/ML Lock Flush inj 500 Units 500 Units (5 mL), IV Lock, PRN Other, IV Flush, Starting on Marilia 24 at 1132, Until Marilia 24 at 1544, For 24 hours, Do not flush if lock, PICC, or central line not in place; IV infusing or unable to flush. Given 01/09/2024 11:35 AM EST 500 Units sodium chloride 0.9 % flush central line 10 mL 10 mL, IV Push, PRN Other, IV Flush, Starting on Marilia 24 at 1132, Until Marilia 01/09/24 at 1544, For 24 hours, Do not flush if lock, PICC, or central line not in place; IV infusing or unable to flush. Given 01/09/2024 11:34 AM EST 10 mL documented in this encounter Advance Directives Documents on File Type Date Recorded Patient Bobbin Winder Tender Expl anation Advance Directives and Living Will [...] Agen t (per Health Care Power of Sec Reporting Consultant document) [email or web address] First Alternate Health Care Agent (per Health Care Power of Sec Reporting Consultant document) [email or web address] Care Teams Second Grade Teacher Relationship Specialty Start Date End Date Sergio Barriga MD [address] [place] [address] PCP - General Family Medicine 08/07/19 documented as of this encounter
--- OUTSIDE RECORDS SUMMARY | 2024-04-18 23:57 | External Medical Summary | Summary of Care ---
Author Name Unknown Organization [facility] Address [address] [place] [address] Phone [phone] Care Team Providers Care Heat Curer Name Role Phone Sergio Barriga MD Primary Care Provider + Reason for Visit * Reason Comments Chemotherapy C7/D1 - FOLFIRINOX * Episode Based Medications (Routine) - Authorized Specialty Diagnoses / Procedures Referred By Linda hu Referred To Contact Diagnoses Encounter for antineoplastic chemotherapy 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) 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) Procedures [place] LEUCOVORIN CALCIUM INJECTION [place] FLUOROURACIL INJECTION [place] IRINOTECAN INJECTION [place] OXALIPLATIN [place] FOSAPREPITANT INJECTION BEVACIZUMAB-BVZR, BIOSIMILAR, 10 MG (ZIRABEV), IV [place] INJECTION, UDENYCA 0.5 MG Dakota Armando MD [address] [place] [address] Anc Hem/Onc Scenery Rehana DEPT CLOSED - 10/08/23 [address] [place], [place] [address] Referral ID Status Reason Start Date Expiration Date V isits Requested Visits Authorized [id number] Authorized 08/30/2023 11/24/2099 999 99 Encounter Details Date Type Department Care Team (Latest Contact Info) Description 01/07/2024 8:30 AM EST Hem/Onc Treatment Hematology/Oncolog y Treatment, [place] [address] [place] [address] Rehana, Chair 7 Hem Onc Scenery [address] [place] [address] 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)*; [...] mouth in the morning. 0 Active Pancrelipase (Lym-Hqqk-Bnpq) 77[address] UNIT Oral Capsule Delayed Release Particles (Creon 72529) 2 cap with meals, 1 with larger [...] -19) 10/16/2022 Coronary artery disease invo lving [place] coronary artery of [place] heart without angina pectoris 08/20/2022 Overview: Severe [...] WNL, antiphos lipids WNL Factor V+heteroqygous. FM PY-LCCS-HQSCG DIS NEC documented as of this encounter (statuses as of 02/12/2024) Immunizations Name Administration Dates Next Due COVID-19 mRNA, LNP-s, No Pre serve, 2-Dose Series (Via) 01/13/2022,07/21/2021,02/01/2021,01/04 COVID-19, MRNA-LNP, 23-24, P F, 30 MCG/0.3 mL, 12 YRS AND ABOVE, IM ([facility]) 09/12/2023 Covid-19, Mrna, Lnp-s, Pf, B ivalent, 30 Mcg, IM, 12 yrs and above (Via) 08/16/2022 HEP A - Hepatitis A (Adult [...] 02/17/2024 9:10 AM EDT Laboratory Laboratory [facility] [address] [place] [phone] Rehana, Lab Scenery [address] [facility] [place], [place] [address] 02/18/2024 8:45 AM EDT Hem/Onc Treatment Hematology/[address]cology [address], [address] [address] Rehana, Chair 7 Hem Onc Scene [address] [place] [address] 03/02/2024 9:10 AM EDT Laboratory Laboratory [facility] [place] [address] [place] [address] Rehana, Lab Scenery [address] [place], [place] [address] 03/03/2024 10:30 AM EDT Hem/Onc Treatment [facility]ology[facility] [place] [facility] [phone] Rehana, Chair 4 Hem Onc Scenery [address] [place], [place] [address] 03/16/2024 8:50 AM EDT Laboratory Laboratory [facility] [place] [address] [place], [place] [phone] Rehana, Lab Scenery [address] [place], [place] [address] 03/17/2024 9:00 AM EDT Office Visit Hematology/Oncology [facility] [place] [address] [place], [place] [phone] Amber Huizar CRNP [address] [place] [address] [place] [address] 03/17/2024 9:30 AM EDT [facility] [address] [place], [place] [phone] Rehana, Chair 8 Hem Onc [facility] [address] [facility] [place] [address] 07/20/2024 10:15 AM EDT Office Visit Dermatology [facility] [place] [address] [place], [place] [address] Cal Jernigan MD [address] [place], [place] [address] 07/21/2024 1:45 PM EDT Office Visit Hematology/Oncology [facility] [address] [place], [place] [phone] Dakota Armando MD [address] [place] [address] 07/24/2024 11:40 AM EDT Office Visit [facility] [address] [place] [address] Sergio Barriga MD [address] [place] [address] Scheduled Orders Name Type Priority Associated Diagnoses [...] this encounter Medical Devices Implanted Type Area Thermoforming Operator Device Identifier Shelf Expiration Date Model / Serial / Lot Duraclip 16mm Xlg Repostn - [id number] Implanted:Qty : 1 on 07/17/2021 by Guillermo Jones DO at ENDOSCOPY [facility] [employer] [id number] 01/10/2024 [id number] / / [id number] Stent Viabil Biliary 07fop3pg - [id number] Implanted:Qty : 1 on 07/17/2021 by Guillermo Jones DO at ENDOSCOPY [facility] [employer] [place] [id number] 03/04/2024 [id number] / [id number] / [id number] Port Implant W/8f Poly Cath - [id number] Implanted:Qty : 1 on 09/13/2023 by Gary Rodriguez DO at OR [facility] Right: Chest CR BARD : PERIPHERAL VASCULAR [id number] 04/24/2025 [id number] / / [id number] documented as of this encounter Results * (ABNORMAL) CA 19-9 (01/20/2024 9:17 AM EST) CA 19-9 540.8(H) <35.0 U/mL 01/20/2024 7:54 PM EST LABORATORY [facility] Blood Venous blood specimen / Unknown Venipuncture / Unknown 01/20/2024 9:17 AM EST 01/20/2024 9:17 AM EST Dakota Armando MD LAB BLOOD ORDERABLES Performing Organization Address City/State/[facility] Co de Phone Number LABORATORY [facility] [address] [place] [address] documented in this encounter Visit Diagnoses Diagnosis [...] Documents on File Type Date Recorded Patient Tombstone Setter Expl anation Advance Directives and Living [...] Agen t (per Health Care Power of Card Fixer document) [email or web address] [email or web address] First Alternate Health Care Agent (per Health Care Power of Card Fixer document) [email or web address] Care Teams Heat Curer Relationship Specialty Start Date End Date Sergio Barriga MD [address] [place] [address] PCP - General Family Medicine 08/07/19 documented as of this encounter
--- OUTSIDE RECORDS SUMMARY | 2024-04-18 23:57 | External Medical Summary | Summary of Care ---
Author Name Unknown Organization [facility] Address [address] [place] [address] Phone [phone] Care Team Providers Care Vulcanizer Name Role Phone Sergio Barriga MD Primary [...] MG Dakota Armando MD [address] [place], [place] [address] Anc Hem/Onc [address] [place] DEPT CLOSED - 10/08/23 [address] [place] [address] Referral ID Status Reason Start Date Expiration Date V isits Requested Visits Authorized [id number] Authorized 08/30/2023 11/24/2099 999 99 Encounter Details Date Type Department Care Team (Latest Contact Info) Description 01/21/2024 9:15 AM EST Hem/Onc Treatment Hematology/Oncolog y Treatment, [place] [address] [place] [address] Rehana, Chair 8 Hem Onc Scenery [address] [place] [address] Encounter for antineoplastic chemotherapy*; Metastasis to liver [...] mouth in the morning. 0 Active Pancrelipase (Sig-Sewf-Etye) 144[address] UNIT Oral Capsule Delayed Release Particles (Creon 29093) 2 cap with meals, 1 with larger [...] -19) 10/16/2022 Coronary artery disease invo lving [place] coronary artery of [place] heart without angina pectoris 08/20/2022 Overview: Severe [...] WNL, antiphos lipids WNL Factor V+heteroqygous. FM VF-OCPC-GAKGL DIS NEC documented as of this encounter (statuses as of 02/11/2024) Immunizations Name Administration Dates Next Due COVID-19 mRNA, LNP-s, No Pre serve, 2-Dose Series (uSpeak) 01/13/2022,07/21/2021,02/01/2021,01/04 COVID-19, MRNA-LNP, 23-24, P F, 30 MCG/0.3 mL, 12 YRS AND ABOVE, IM [facility]) 09/12/2023 Covid-19, Mrna, Lnp-s, Pf, B ivalent, 30 Mcg, IM, 12 yrs and above (uSpeak) 08/16/2022 HEP A - Hepatitis A (Adult [...] 02/17/2024 9:10 AM EDT Laboratory Laboratory [facility] [place] [address] [place] [phone] Rehana, Lab Scenery [address] [place], [place] [address] 02/18/2024 8:45 AM EDT Hem/Onc Treatment Hematology/Oncology Treatment, [place] [facility] [address] Rehana, Chair 7 Hem Onc Scenery [address] [place] [address] 03/02/2024 9:10 AM EDT Laboratory Laboratory [facility] [place] [address] [place] [address] Rehana, Lab Scenery [address] [facility] [place] [place] [address] 03/03/2024 10:30 AM EDT Hem/Onc Treatment Hematology/Oncology Treatment, [place] 200 [facility] [address] [place] [address] Rehana, Chair 4 Hem Onc Scenery [address] [place], [place] [address] 03/16/2024 8:50 AM EDT Laboratory Laboratory [facility] [place] [address] [place] [address] Rehana, Lab Scenery [address] [facility] [place], [place] [address] 03/17/2024 9:00 AM EDT Office Visit Hematology/Oncology [facility] [place] [address] [place] [phone] Amber Huizar CRNP [address] [facility] [place] [address] 03/17/2024 9:30 AM EDT Hem/Onc Treatment Hematology/Oncology Treatment, [place] [address] [facility] [address] [place] [phone] Rehana, Chair 8 Hem Onc [address] [place] [address] 07/20/2024 10:15 AM EDT Office Visit Dermatology [facility] [place] 200 [facility] [place] [address] Cal Jernigan MD 200 [facility] [place] [address] 07/21/2024 1:45 PM EDT Office Visit Hematology/Oncology [facility] [place] 200 [facility] [place] [phone] Dakota Armando MD 200 [facility] [place] [address] 07/24/2024 11:40 AM EDT Office Visit Family Practice [facility] [address] [facility] [place] [address] Sergio Barriga MD 132 [facility] [place] [address] Scheduled Procedures Name Priority Associated Diagnoses Date/Ti [...] this encounter Medical Devices Implanted Type Area Head Of Quality Device Identifier Shelf Expiration Date Model / Serial / Lot Duraclip 16mm Xlg Repostn - [id number] Implanted:Qty : 1 on 07/17/2021 by Guillermo Jones DO at ENDOSCOPY [facility] [employer] [id number] 01/10/2024 [id number] / / [id number] Stent Viabil Biliary 52rag5rq - [id number] Implanted:Qty : 1 on 07/17/2021 by Guillermo Jones DO at ENDOSCOPY [facility] [employer] [id number] 03/04/2024 [id number] / [id number] / [id number] Port Implant W/8f Poly Cath - [id number] Implanted:Qty : 1 on 09/13/2023 by Gary Rodriguez DO at OR [facility] Right: Chest CR BARD : PERIPHERAL VASCULAR [id number] 04/24/2025 [id number] / / [id number] documented as of this encounter Visit Diagnoses [...] Documents on File Type Date Recorded Patient Cisco Administrator Expl anation Advance Directives and Living [...] Agen t (per Health Care Power of Cylinder Grinder document) [email or web address] [email or web address] First Alternate Health Care Agent (per Health Care Power of Cylinder Grinder document) Care Teams Vulcanizer Relationship Specialty Start Date End Date Sergio Barriga MD [address] [place] [address] PCP - General Family Medicine 08/07/19 documented as of this encounter
--- OUTSIDE RECORDS SUMMARY | 2024-04-18 23:57 | External Medical Summary | Summary of Care ---
Author Name Unknown Organization [facility] Address [address] [place] [address] Phone [phone] Care Team Providers Care Remelt Worker Name Role Phone Sergio Barriga MD [...] MG Dakota Armando MD [address] [place], [place] [address] Anc Hem/Onc [place] [facility] DEPT CLOSED - 10/08/23 [address] [place] [address] Referral ID Status Reason Start Date Expiration Date V isits Requested Visits Authorized [id number] Authorized 08/30/2023 11/24/2099 999 99 Encounter Details Date Type Department Care Team (Latest Contact Info) Description 01/21/2024 9:15 AM EST Hem/Onc Treatment Hematology/Oncolog y Treatment, [place] [address] [place] [address] Rehana, Chair 8 Hem Onc Scenery [address] [place] [address] Encounter for antineoplastic chemotherapy*; Metastasis to liver [...] mouth in the morning. 0 Active Pancrelipase (Gyq-Ibdh-Vlja) 85990-92745 UNIT Oral Capsule Delayed Release Particles (Creon 98929) 2 cap with meals, 1 with larger [...] Coronary artery disease invo lving [place] coronary artery of [place] heart without angina pectoris 08/20/2022 Overview: Severe [...] WNL Factor V+heteroqygous. 04/10 colon-Dr Case [facility] 2 polyps 1 tubular adenoma. Kevin 5y 2013 sleep study [facility] WNL [address] Elena [facility] Essential hypertension with goal blood pressure less [...] WNL, antiphos lipids WNL Factor V+heteroqygous. FM ST-EIZA-XQJZE DIS NEC documented as of this encounter (statuses as of 02/11/2024) Immunizations Name Administration Dates Next Due COVID-19 mRNA, LNP-s, No Pre serve, 2-Dose Series (Kuotus) 01/13/2022,07/21/2021,02/01/2021,01/04 COVID-19, MRNA-LNP, 23-24, P F, 30 MCG/0.3 mL, 12 YRS AND ABOVE, IM ([facility]) 09/12/2023 Covid-19, Mrna, Lnp-s, Pf, B ivalent, 30 Mcg, IM, 12 yrs and above (Kuotus) 08/16/2022 HEP A - Hepatitis A (Adult [...] Description 02/17/2024 9:10 AM EDT Laboratory Laboratory [facility] [place] [address] [place] [phone] Rehana, Lab Scenery [address] [place], [place] [address] 02/18/2024 8:45 AM EDT Hem/Onc Treatment [facility] [place] [facility] [address] Rehana, Chair 7 Hem Onc Scenery [address] [place] [address] 03/02/2024 9:10 AM EDT Laboratory Laboratory [facility] [place] [address] [place] [address] Rehana, Lab Scenery [address] [facility] [place] [address] 03/03/2024 10:30 AM EDT Hem/Onc Treatment Hematology/Oncology Treatment, [place] 200 [facility] [address] [place] [address] Rehana, Chair 4 Hem Onc Scenery [address] [place], [place] [address] 03/16/2024 8:50 AM EDT Laboratory Laboratory [facility] [place] [address] [place] [address] Rehana, Lab Scenery [address] [facility] [place] [address] 03/17/2024 9:00 AM EDT Office Visit Hematology/Oncology [facility] [place] [address] [place] [phone] Amber Huizar CRNP 400 [facility] [place] [address] 03/17/2024 9:30 AM EDT Hem/Onc Treatment Hematology/Oncology Treatment, [place] [address] [facility] [address] [place] [phone] Rehana, Chair 8 Hem Onc [address] [place] [address] 07/20/2024 10:15 AM EDT Office Visit Dermatology [facility] [place] 200 [facility] [place] [address] Cal Jernigan MD 200 [facility] [place] [address] 07/21/2024 1:45 PM EDT Office Visit Hematology/Oncology [facility] [place] 200 [facility] [place] [phone] Dakota Armando MD 200 [facility] [place] [address] 07/24/2024 11:40 AM EDT Office Visit Family Practice [facility] 132 [facility] [place] [address] Sergio Barriga MD 132 [facility] [place] [address] Scheduled Procedures Name Priority Associated Diagnoses Date/Ti [...] this encounter Medical Devices Implanted Type Area Ceramic Capacitor Processor Device Identifier Shelf Expiration Date Model / Serial / Lot Duraclip 16mm Xlg Repostn - [id number] Implanted:Qty : 1 on 07/17/2021 by Guillermo Jones DO [place] [facility] [employer] [id number] 01/10/2024 [id number] / / [id number] Stent Viabil Biliary 42uht6rs - [id number] Implanted:Qty : 1 on 07/17/2021 by Guillermo Jones DO at [facility] [employer] [id number] 03/04/2024 [id number] / [id number] / [id number] Port Implant W/8f Poly Cath - [id number] Implanted:Qty : 1 on 09/13/2023 by Gary Rodriguez DO at OR [facility] Right: Chest CR BARD : PERIPHERAL VASCULAR [id number] 04/24/2025 [id number] / / [id number] documented as of this encounter Visit Diagnoses [...] Documents on File Type Date Recorded Patient Chief Juvenile Probation Officer Expl anation Advance Directives and Living Will [...] Agen t (per Health Care Power of Galley Worker document) [email or web address] [email or web address] [email or web address] Sibling First Alternate Health Care Agent (per Health Care Power of Galley Worker document) [email or web address] Care Teams Remelt Worker Relationship Specialty Start Date End Date Sergio Barriga MD [address] [place] [address] PCP - General Family Medicine 08/07/19 documented as of this encounter
--- OUTSIDE RECORDS SUMMARY | 2024-04-18 23:57 | External Medical Summary | Summary of Care ---
Author Name Unknown Organization [facility] Address [address] [place] [address] Phone [phone] Care Team Providers Care Lead Mobile Developer Name Role Phone Sergio Barriga MD Primary Care Provider + Reason for Visit * Reason Comments Chemotherapy C7/D1 - FOLFIRINOX * Episode Based Medications (Routine) - Authorized Specialty Diagnoses / Procedures Referred By Linda hu Referred To Contact Diagnoses Encounter for antineoplastic chemotherapy 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) 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) Procedures GA LEUCOVORIN CALCIUM INJECTION GA FLUOROURACIL INJECTION GA IRINOTECAN INJECTION GA OXALIPLATIN GA FOSAPREPITANT INJECTION BEVACIZUMAB-BVZR, BIOSIMILAR, 10 MG (ZIRABEV), IV GA INJECTION, UDENYCA 0.5 MG Dakota Armando MD [address] [place] [address] Anc Hem/Onc Scenery Rehana DEPT CLOSED - 10/08/23 [address] [place], [place] [address] Referral ID Status Reason Start Date Expiration Date V isits Requested Visits Authorized [id number] Authorized 08/30/2023 11/24/2099 999 99 Encounter Details Date Type Department Care Team (Latest Contact Info) Description 01/07/2024 8:30 AM EST Hem/Onc Treatment Hematology/Oncolog y Treatment, [place] [address] [place] [address] Rehana, Chair 7 Hem Onc Scenery [address] [place] [place] [address] 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)*; [...] mouth in the morning. 0 Active Pancrelipase (Kxy-Lquu-Ivvn) 55779-77[address] UNIT Oral Capsule Delayed Release Particles (Creon 57773) 2 cap with meals, 1 with larger [...] 10/16/2022 Coronary artery disease invo lving [place] coronary artery of [place] heart without angina pectoris 08/20/2022 Overview: Severe [...] lipids WNL Factor V+heteroqygous. 04/10 colon-Dr Case [facility] 2 polyps 1 tubular adenoma. Kevin 6y 2013 sleep study [facility] WNL [address] [facility] WNL, antiphos lipids WNL Factor V+heteroqygous. FM QF-YMKV-TGVHR DIS NEC documented as of this encounter (statuses as of 02/12/2024) Immunizations Name Administration Dates Next Due COVID-19 mRNA, LNP-s, No Pre serve, 2-Dose Series ([employer]) 01/13/2022,07/21/2021,02/01/2021,01/04 COVID-19, MRNA-LNP, 23-24, P F, 30 MCG/0.3 mL, 12 YRS AND ABOVE, IM ([facility]) 09/12/2023 Covid-19, Mrna, Lnp-s, Pf, B ivalent, 30 Mcg, IM, 12 yrs and above ([employer]) 08/16/2022 HEP A - Hepatitis A (Adult [...] Description 02/17/2024 9:10 AM EDT Laboratory Laboratory [facility] [address] [place] [phone] Rehana, Lab Scenery [address] [facility] [place] [address] 02/18/2024 8:45 AM EDT Hem/Onc Treatment Hematology/Oncology Treatment, [address] [address] Rehana, Chair 7 Hem Onc Scene [address] [place] [address] 03/02/2024 9:10 AM EDT Laboratory Laboratory [facility] [place] [address] [place] [address] Rehana, Lab Scenery [address] [place], [place] [address] 03/03/2024 10:30 AM EDT Hem/Onc Treatment Hematology/Oncology Treatment, [place] 200 [facility] [phone] Rehana, Chair 4 Hem Onc Scenery [address] [place], [place] [address] 03/16/2024 8:50 AM EDT Laboratory Laboratory [facility] [place] [address] [place], [place] [phone] Rehana, Lab Scenery [address] [place], [place] [address] 03/17/2024 9:00 AM EDT Office Visit Hematology/Oncology [facility] [place] [address] [place], [place] [phone] Amber Huizar CRNP [address] [place] [address] [place] [address] 03/17/2024 9:30 AM EDT [facility] [address] [place], [place] [phone] Rehana, Chair 8 Hem Onc [facility] [place] [address] 07/20/2024 10:15 AM EDT Office Visit Dermatology [facility] [place] [address] [place], [place] [address] Cal Jernigan MD [address] [place], [place] [address] 07/21/2024 1:45 PM EDT Office Visit Hematology/Oncology [facility] [address] [place], [place] [phone] Dakota Armando MD [address] [place] [address] 07/24/2024 11:40 AM EDT Office Visit [facility] [address] [place] [address] Sergio Barriga MD [address] [place] [address] Scheduled Orders Name Type Priority Associated Diagnoses [...] this encounter Medical Devices Implanted Type Area Airplane Tester Device Identifier Shelf Expiration Date Model / Serial / Lot Duraclip 16mm Xlg Repostn - [id number] Implanted:Qty : 1 on 07/17/2021 by Guillermo Jones DO [place] [facility] [employer] [id number] 01/10/2024 [id number] / / [id number] Stent Viabil Biliary 11bwn3et - [id number] Implanted:Qty : 1 on 07/17/2021 by Guillermo Jones DO [place] [facility] [employer] [id number] 03/04/2024 [id number] / [id number] / [id number] Port Implant W/8f Poly Cath - [id number] Implanted:Qty : 1 on 09/13/2023 by Gary Rodriguez DO at OR [facility] Right: Chest CR BARD : PERIPHERAL VASCULAR [id number] 04/24/2025 [id number] / / [id number] documented as of this encounter Results * (ABNORMAL) CA 19-9 (01/20/2024 9:17 AM EST) CA 19-9 540.8(H) <35.0 U/mL 01/20/2024 7:54 PM EST [facility] Blood Venous blood specimen / Unknown Venipuncture / Unknown 01/20/2024 9:17 AM EST 01/20/2024 9:17 AM EST Dakota Armando MD LAB BLOOD ORDERABLES Performing Organization Address City/State/[facility] Co de Phone Number [facility] [address] [place] [address] documented in this encounter Visit Diagnoses Diagnosis [...] Documents on File Type Date Recorded 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
--- OUTSIDE RECORDS SUMMARY | 2024-04-18 23:57 | External Medical Summary | Summary of Care ---
Author Name Unknown Organization [facility] Address [address] [place] [address] Phone [phone] Care Team Providers Care Unified Communications Architect Name Role Phone Sergio Barriga MD Primary Care Provider + Reason for Visit * Reason Comments Chemotherapy C8D1 Folfirinox * Episode Based Medications (Routine) - Authorized Specialty Diagnoses / Procedures Referred By Linda hu Referred To Contact Diagnoses Encounter for antineoplastic chemotherapy 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) 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) Procedures DE LEUCOVORIN CALCIUM INJECTION DE FLUOROURACIL INJECTION DE IRINOTECAN INJECTION DE OXALIPLATIN DE FOSAPREPITANT INJECTION BEVACIZUMAB-BVZR, BIOSIMILAR, 10 MG (ZIRABEV), IV DE INJECTION, UDENYCA 0.5 MG Dakota Armando MD [address] [place], [place] [address] Anc Hem/Onc [place] DEPT CLOSED - 10/08/23 [address] [place] [address] Referral ID Status Reason Start Date Expiration Date V isits Requested Visits Authorized [id number] Authorized 08/30/2023 11/24/2099 999 99 Encounter Details Date Type Department Care Team (Latest Contact Info) Description 01/21/2024 9:15 AM EST Hem/Onc Treatment Hematology/Oncolog y Treatment, [place] [address] [place] [address] Rehana, Chair 8 Hem Onc Scenery [address] [place] [address] Encounter for antineoplastic chemotherapy*; Metastasis to liver [...] mouth in the morning. 0 Active Pancrelipase (Gzs-Fbyp-Rbvd) 19232-926[address] UNIT Oral Capsule Delayed Release Particles (Creon 42290) 2 cap with meals, 1 with larger [...] lipids WNL Factor V+heteroqygous. 04/10 colon-[address] [facility] 2 polyps 1 tubular [...] WNL, antiphos lipids WNL Factor V+heteroqygous. FM YB-ZMVB-DBCFG DIS NEC documented as of this encounter (statuses as of 02/11/2024) Immunizations Name Administration Dates Next Due COVID-19 mRNA, LNP-s, No Pre serve, 2-Dose Series ([employer]) 01/13/2022,07/21/2021,02/01/2021,01/04 COVID-19, MRNA-LNP, 23-24, P F, 30 MCG/0.3 mL, 12 YRS AND ABOVE, IM ([facility]) 09/12/2023 Covid-19, Mrna, Lnp-s, Pf, B ivalent, 30 Mcg, IM, 12 yrs and above ([employer]) 08/16/2022 HEP A - Hepatitis A (Adult [...] Description 02/17/2024 9:10 AM EDT Laboratory Laboratory [facility] [place] [address] [place] [address] Rehana, Lab Scenery [address] [place], [place] [address] 02/18/2024 8:45 AM EDT Hem/Onc Treatment Hematology/Oncology Treatment, [place] [facility] [address] Rehana, Chair 7 Hem Onc Scenery [address] [place] [address] 03/02/2024 9:10 AM EDT Laboratory Laboratory [facility] [place] [address] [place] [address] Rehana, Lab Scenery [address] [facility] [place] [address] 03/03/2024 10:30 AM EDT Hem/Onc Treatment Hematology/Oncology Treatment, [place] 200 [facility] [address] [place] [address] Rehana, Chair 4 Hem Onc Scenery [address] [place], [place] [address] 03/16/2024 8:50 AM EDT Laboratory Laboratory [facility] [place] [address] [place] [address] Rehana, Lab Scenery [address] [facility] [place] [address] 03/17/2024 9:00 AM EDT Office Visit Hematology/Oncology [facility] [place] [address] [place] [phone] Amber Huizar CRNP 400 [facility] [place] [address] 03/17/2024 9:30 AM EDT Hem/Onc Treatment Hematology/Oncology Treatment, [place] [address] [facility] [address] [place] [phone] Rehana, Chair 8 Hem Onc [address] [place] [address] 07/20/2024 10:15 AM EDT Office Visit Dermatology [facility] [place] 200 [facility] [place] [address] Cal Jernigan MD 200 [facility] [place] [address] 07/21/2024 1:45 PM EDT Office Visit Hematology/Oncology [facility] [place] 200 [facility] [place] [phone] Dakota Armando MD 200 [facility] [place] [address] 07/24/2024 11:40 AM EDT Office Visit Family Practice [facility] 132 [facility] [place] [address] Sergio Barriga MD 132 [facility] [place] [address] Scheduled Procedures Name Priority Associated Diagnoses Date/Ti [...] this encounter Medical Devices Implanted Type Area Tire Repairer Device Identifier Shelf Expiration Date Model / Serial / Lot Duraclip 16mm Xlg Repostn - [id number] Implanted:Qty : 1 on 07/17/2021 by Guillermo Jones DO at [facility] [employer] [id number] 01/10/2024 [id number] / / [id number] Stent Viabil Biliary 18qou9ha - [id number] Implanted:Qty : 1 on 07/17/2021 by Guillermo Jones DO at [facility]OS[facility] [employer] [id number] 03/04/2024 [id number] / [id number] / [id number] Port Implant W/8f Poly Cath - [id number] Implanted:Qty : 1 on 09/13/2023 by Gary Rodriguez DO at OR [facility] Right: Chest CR BARD : PERIPHERAL VASCULAR [id number] 04/24/2025 [id number] / / [id number] documented as of this encounter Visit Diagnoses [...] Documents on File Type Date Recorded 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
--- OUTSIDE RECORDS SUMMARY | 2024-04-18 23:57 | External Medical Summary | Summary of Care ---
Author Name Unknown Organization [facility] Address [address] [place] [address] Phone [phone] Care Team Providers Care Campus Supervisor Name Role Phone Sergio Barriga MD Primary Care Provider + Reason for Visit * Reason Comments Medication Administration Udencya * Episode Based Medications (Routine) - Authorized Specialty Diagnoses / Procedures Referred By Linda hu Referred To Contact Diagnoses Encounter for antineoplastic chemotherapy 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) 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) Procedures HI LEUCOVORIN CALCIUM INJECTION HI FLUOROURACIL INJECTION HI IRINOTECAN INJECTION HI OXALIPLATIN HI FOSAPREPITANT INJECTION BEVACIZUMAB-BVZR, BIOSIMILAR, 10 MG (ZIRABEV), IV HI INJECTION, UDENYCA 0.5 MG Dakota Armando MD [address] [place], [place] [address] Anc Hem/Onc [facility] DEPT CLOSED - 10/08/23 [address] [place] [address] Referral ID Status Reason Start Date Expiration Date V isits Requested Visits Authorized [id number] Authorized 08/30/2023 11/24/2099 999 99 Encounter Details Date Type Department Care Team (Latest Contact Info) Description 01/10/2024 11:30 AM EST Immunization/ Injection Hematology/Oncology Treatment, [place] [address] [place] [address] Nurse, Med 4 [address] [place] [address] Encounter for antineoplastic chemotherapy*; Metastasis to [...] mouth in the morning. 0 Active Pancrelipase (Jen-Uupy-Mrsb) 13708-34198 UNIT Oral Capsule Delayed Release Particles (Creon 03748) 2 cap with meals, 1 with larger [...] -19) 10/16/2022 Coronary artery disease invo lving [place] coronary artery of [place] heart without angina pectoris 08/20/2022 Overview: Severe [...] WNL Factor V+heteroqygous. 04/10 colon-Dr Case [facility] 2 polyps 1 tubular adenoma. Kevin 5y [address] [facility] WNL [address] [facility] Essential hypertension with goal blood pressure [...] Overview: 01/13 dx date ? After 6h drvie. 04/12 recl nearly occlusive DVT in distal popliteal vein also anterior tib, post tib and peroneal veins, similar to 01/13. 05/13 labs Anti thr III WNL, Prot C WNL, Prot S WNL, antiphos lipids WNL Factor V+heteroqygous. FM [id number] DIS NEC documented as of this encounter (statuses as of 02/12/2024) Immunizations Name Administration Dates Next Due COVID-19 mRNA, LNP-s, No Pre serve, 2-Dose Series ([employer]) 01/13/2022,07/21/2021,02/01/2021,01/04 COVID-19, MRNA-LNP, 23-24, P F, 30 MCG/0.3 mL, 12 YRS AND ABOVE, IM ([employer]Runrun[employer]itirBioVidria) 09/12/2023 Covid-19, Mrna, Lnp-s, Pf, B ivalent, 30 Mcg, IM, 12 yrs and above ([employer]) 08/16/2022 HEP A - Hepatitis A (Adult [...] 9:05 AM EDT Sexual Orientation Straight 07/16/2022 9 :05 AM EDT Job Start Date Occupation Industry [...] of this encounter Nursing Notes * Nereyda Xiao LPN - 01/10/2024 12:50 PM EST 1130: Pt arrived for Udencya injection. Administered in [place]. Pt tolerated well. Discharged in stable condition. documented in this encounter Plan of Treatment Upcoming Encounters Date Type Department Care Team (Late st Contact Info) Description 02/17/2024 9:10 AM EDT Laboratory Laboratory [facility] [place] [address] [place] [address] Rehana, Lab Scenery [address] [facility] [place] [address] 02/18/2024 8:45 AM EDT Hem/Onc Treatment Hematology/Oncology Treatment, [place] 200 [facility], [place] [address] Rehana, Chair 7 Hem Onc Scenery [address] [place], [place] [address] 03/02/2024 9:10 AM EDT Laboratory Laboratory [facility] [place] [address] [place] [address] Rehana, Lab Scenery [address] [place], [place] [address] 03/03/2024 10:30 AM EDT Hem/Onc Treatment Hematology/Oncology Treatment, [place] 200 [facility], [place] [address] Rehana, Chair 4 Hem Onc Scenery [address] [place] [address] 03/16/2024 8:50 AM EDT Laboratory Laboratory [facility] [place] [address] [place] [address] Rehana, Lab Scenery [address] [place], [place] [address] 03/17/2024 9:00 AM EDT Office [facility] [place] [address] [place] [address] Amber Huizar CRNP [address] [place], [place] [address] [address] 03/17/2024 9:30 AM EDT Hem/Onc Treatment [facility]ematology[facility]cology [facility], [place] [facility] [place] [address] Rehana, Chair 8 Hem Onc Scenery [address] [place], [place] [address] 07/20/2024 10:15 AM EDT Office Visit Dermatology [facility] [address] [place] [address] Cal Jernigan MD [address] [place] [address] 07/21/2024 1:45 PM EDT Office Visit Hematology/Oncology [facility] [address] [place] [address] Dakota Armando MD 200 [facility] [place] [address] 07/24/2024 11:40 AM EDT Office Visit Family Practice [facility] [address] [place] [address] Sergio Barriga MD [address] [place] [address] Scheduled Procedures Name Priority Associated Diagnoses Date/Ti [...] this encounter Medical Devices Implanted Type Area Geropsychologist Device Identifier Shelf Expiration Date Model / Serial / Lot Duraclip 16mm Xlg Repostn - [id number] Implanted:Qty : 1 on 07/17/2021 [place] Guillermo Jones DO [place] [facility] [place] [employer]cl[employer] [id number] 01/10/2024 [id number] / / [id number] Stent Viabil Biliary [id number] - [id number] Implanted:Qty : 1 on 07/17/2021 by Guillermo Jones DO [place] [facility] [place] [employer]dsame REYNALDO [id number] 03/04/2024 [id number] / [id number] / [id number] Port Implant W/8f Poly Cath - [id number] Implanted:Qty : 1 on 09/13/2023 by Gary Rodriguez DO at OR [facility] Right: Chest CR BARD : PERIPHERAL VASCULAR [id number] 04/24/2025 [id number] / / [id number] documented as of this encounter Visit Diagnoses [...] 6 mg 6 mg, Subcutaneous, ONCE, On Sat01/10/24 at 1215, For 1 dose Given 01/10/2024 11:35 AM EST 6 mg Arm Right Upper documented in this encounter Advance Directives Documents on File Type Date Recorded 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 Healthcare Agents on File Name Relationship Healthcare Agent Relationship Communication Virginie Cramer Spouse Health Care Agen t (per Health Care Power of Coppersmith Helper document) [email or web address] Temo Bela Sibling First Alternate Health Care Agent (per Health Care Power of Coppersmith Helper document) [email or web address] Care Teams Campus Supervisor Relationship Specialty Start Date End Date Sergio Barriga MD [address] [place] [address] PCP - General Family Medicine 08/07/19 documented as of this encounter
--- OUTSIDE RECORDS SUMMARY | 2024-04-18 23:57 | External Medical Summary | Summary of Care ---
Author Name Unknown Organization [facility] Address [address] [place] [address] Phone [phone] Care Team Providers Care Craft Manager Name Role Phone Sergio Barriga MD [...] MG Dakota Armando MD [address] [place], [place] [address] Anc Hem/Onc [facility] DEPT CLOSED - 10/08/23 [address] [place] [address] Referral ID Status Reason Start Date Expiration Date V isits Requested Visits Authorized [id number] Authorized 08/30/2023 11/24/2099 999 99 Encounter Details Date Type Department Care Team (Latest Contact Info) Description 01/21/2024 9:15 AM EST Hem/Onc Treatment Hematology/Oncolog y Treatment, [place] [address] [place] [address] Rehana, Chair 8 Hem Onc Scenery [address] [place] [address] Encounter for antineoplastic chemotherapy*; Metastasis to liver [...] mouth in the morning. 0 Active Pancrelipase (Qtv-Osxc-Zbnq) 379[address] UNIT Oral Capsule Delayed Release Particles (Creon 71105) 2 cap with meals, 1 with larger [...] -19) 10/16/2022 Coronary artery disease invo lving [place] coronary artery of [place] heart without angina pectoris 08/20/2022 Overview: Severe [...] lipids WNL Factor V+heteroqygous. 04/10 colon-Dr Case [facility] 2 polyps 1 tubular adenoma. Kevin 5y 2013 sleep study [facility] WNL [address] Elena [facility] [...] WNL, antiphos lipids WNL Factor V+heteroqygous. FM [id number]-[id number] DIS NEC documented as of this encounter (statuses as of 02/11/2024) Immunizations Name Administration Dates Next Due COVID-19 mRNA, LNP-s, No Pre serve, 2-Dose Series (UIBLUEPRINT) 01/13/2022,07/21/2021,02/01/2021,01/04 COVID-19, MRNA-LNP, 23-24, P F, 30 MCG/0.3 mL, 12 YRS AND ABOVE, IM (WDFA MarketingMiss[facility]) 09/12/2023 Covid-19, Mrna, Lnp-s, Pf, B ivalent, 30 Mcg, IM, 12 yrs and above (UIBLUEPRINT) 08/16/2022 HEP A - Hepatitis A (Adult [...] Description 02/17/2024 9:10 AM EDT Laboratory Laboratory [facility] [place] [address] [place] [address] Rehana, Lab Scenery [address] [place], [place] [address] 02/18/2024 8:45 AM EDT Hem/Onc Treatment [facility], [place] [facility] [address] Rehana, Chair 7 Hem Onc Scenery [address] [place] [address] 03/02/2024 9:10 AM EDT Laboratory Laboratory [facility] [place] [address] [place] [address] Rehana, Lab Scenery [address] [facility] [place] [address] 03/03/2024 10:30 AM EDT Hem/Onc Treatment Hematology/Oncology Treatment, [place] 200 [facility] [place] [address] Rehana, Chair 4 Hem Onc Scenery [address] [place], [place] [address] 03/16/2024 8:50 AM EDT Laboratory Laboratory [facility] [place] [address] [place] [address] Rehana, Lab Scenery [address] [facility] [place] [address] 03/17/2024 9:00 AM EDT Office Visit Hematology/Oncology [facility] [place] [address] [place] [phone] Amber Huizar CRNP [address] [facility] [place] [address] 03/17/2024 9:30 AM EDT Hem/Onc Treatment Hematology/Oncology Treatment, [place] [address] [facility] [address] [place] [address] Rehana, Chair 8 Hem Onc [address] [place] [address] 07/20/2024 10:15 AM EDT Office Visit Dermatology [facility] [place] 200 [facility] [place] [address] Cal Jernigan MD 200 [facility] [place] [address] 07/21/2024 1:45 PM EDT Office Visit Hematology/Oncology [facility] [place] 200 [facility] [place] [address] Dakota Armando MD 200 [facility] [place] [address] 07/24/2024 11:40 AM EDT Office Visit [facility] [address] [facility] [place] [address] Sergio Barriga MD 132 [facility] [place] [address] Scheduled Procedures Name Priority Associated Diagnoses Date/Ti [...] this encounter Medical Devices Implanted Type Area Collector Of Port Device Identifier Shelf Expiration Date Model / Serial / Lot Duraclip 16mm Xlg Repostn - [id number] Implanted:Qty : 1 on 07/17/2021 by Guillermo Jones DO at [place] CONMED REYNALDO [id number] 01/10/2024 [id number] / / [id number] Stent Viabil Biliary [id number] - [id number] Implanted:Qty : 1 on 07/17/2021 by Guillermo Jones DO at END[facility] [place] CONMED REYNALDO [id number] 03/04/2024 [id number] / [id number] / [id number] Port Implant W/8f Poly Cath - [id number] Implanted:Qty : 1 on 09/13/2023 by Gary Rodriguez DO at OR [facility] Right: Chest CR BARD : PERIPHERAL VASCULAR [id number] 04/24/2025 [id number] / / [id number] documented as of this encounter Visit Diagnoses [...] Documents on File Type Date Recorded Patient Or Rn Expl anation Advance Directives and Living [...] Agen t (per Health Care Power of Space And Missile Operations document) [email or web address] Temo Bela Sibling First Alternate Health Care Agent (per Health Care Power of Space And Missile Operations document) Care Teams Craft Manager Relationship Specialty Start Date End Date Sergio Barriga MD [address] [place] [address] PCP - General Family Medicine 08/07/19 documented as of this encounter
--- OUTSIDE RECORDS SUMMARY | 2024-04-18 23:57 | External Medical Summary | Summary of Care ---
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) Procedures MA LEUCOVORIN CALCIUM INJECTION MA FLUOROURACIL INJECTION MA IRINOTECAN INJECTION MA OXALIPLATIN MA FOSAPREPITANT INJECTION BEVACIZUMAB-BVZR, BIOSIMILAR, 10 MG (ZIRABEV), IV MA INJECTION, UDENYCA 0.5 MG Dakota Armando MD [address] [place] [address] Anc Hem/Onc Scenery Reh[place] DEPT CLOSED - 10/08/23 [address] [place], [place] [address] Referral ID Status Reason Start Date Expiration Date V isits Requested Visits Authorized [id number] Authorized 08/30/2023 11/24/2099 999 99 Encounter Details Date Type Department Care Team (Latest Contact Info) Description 01/07/2024 8:30 AM EST Hem/Onc Treatment Hematology/Oncolog y Treatment, [place] [address] [place] [address] Rehana, Chair 7 Hem Onc Scenery [address] [place] [address] 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)*; [...] mouth in the morning. 0 Active Pancrelipase (Upp-Nlzy-Mkbk) 24727[address] UNIT Oral Capsule Delayed Release Particles (Creon 77818) 2 cap with meals, 1 with larger [...] -19) 10/16/2022 Coronary artery disease invo lving [place] coronary artery of [place] heart without angina pectoris 08/20/2022 Overview: [...] lipids WNL Factor V+heteroqygous. 04/10 colon-Dr Case [facility] 2 polyps 1 tubular adenoma. Kevin 5y 2013 sleep study [facility] WNL [address] Elena [facility] Essential hypertension with goal blood pressure [...] WNL, antiphos lipids WNL Factor V+heteroqygous. FM QH-CMZG-UGHBR DIS NEC documented as of this encounter (statuses as of 02/12/2024) Immunizations Name Administration Dates Next Due COVID-19 mRNA, LNP-s, No Pre serve, 2-Dose Series (1SDK) 01/13/2022,07/21/2021,02/01/2021,01/04 COVID-19, MRNA-LNP, 23-24, P F, 30 MCG/0.3 mL, 12 YRS AND ABOVE, IM ([facility]) 09/12/2023 Covid-19, Mrna, Lnp-s, Pf, B ivalent, 30 Mcg, IM, 12 yrs and above (1SDK) 08/16/2022 HEP A - Hepatitis A (Adult [...] Description 02/17/2024 9:10 AM EDT Laboratory Laboratory [facility] [address] [place] [address] Rehana, Lab Scenery [address] [facility] [place] [address] 02/18/2024 8:45 AM EDT Hem/Onc Treatment Hematology/Oncology [address], [address] [address] Rehana, Chair 7 Hem Onc [address] [place] [address] 03/02/2024 9:10 AM EDT Laboratory Laboratory [facility] [place] [address] [place] [address] Rehana, Lab Scenery [address] [place], [place] [address] 03/03/2024 10:30 AM EDT Hem/Onc Treatment [facility]ology[facility], [place] [facility] [address] Rehana, Chair 4 Hem Onc Scenery [address] [place] [address] 03/16/2024 8:50 AM EDT Laboratory Laboratory [facility] [place] [address] [place], [place] [address] Rehana, Lab Scenery [address] [place], [place] [address] 03/17/2024 9:00 AM EDT Office Visit Hematology/Oncology [facility] [place] [address] [place], [place] [phone] Amber Huizar CRNP [address] [place] [address] [place] [address] 03/17/2024 9:30 AM EDT [facility] [address] [place], [place] [address] Rehana, Chair 8 Hem Onc [facility] [place] [address] 07/20/2024 10:15 AM EDT Office Visit Dermatology [facility] [place] [address] [place], [place] [address] Cal Jernigan MD [address] [place], [place] [address] 07/21/2024 1:45 PM EDT Office Visit Hematology/Oncology [facility] [address] [place], [place] [address] Dakota Armando MD [address] [place] [address] 07/24/2024 11:40 AM EDT Office Visit [facility] [address] [place] [address] Sergio Barriga MD [address] [place] [address] Scheduled Orders Name Type Priority Associated Diagnoses [...] this encounter Medical Devices Implanted Type Area Lacquer Pin Press Operator Device Identifier Shelf Expiration Date Model / Serial / Lot Duraclip 16mm Xlg Repostn - [id number] Implanted:Qty : 1 on 07/17/2021 [place] u[place]illermo Jones [place] [facility] [place] [employer]ch[employer] [id number] 01/10/2024 [id number] / / [id number] Stent Viabil Biliary [id number] - [id number] Implanted:Qty : 1 on 07/17/2021 by Guillermo Jones DO [place] [facility] [place] [employer] REYNALDO [id number] 03/04/2024 [id number] / [id number] / [id number] Port Implant W/8f Poly Cath - [id number] Implanted:Qty : 1 on 09/13/2023 by Gary Rodriguez DO at OR [facility] Right: Chest CR BARD : PERIPHERAL VASCULAR [id number] 04/24/2025 [id number] / / [id number] documented as of this encounter Results * (ABNORMAL) CA 19-9 (01/20/2024 9:17 AM EST) CA 19-9 540.8(H) <35.0 U/mL 01/20/2024 7:54 PM EST [facility] [facility] [place] Blood Venous blood specimen / Unknown Venipuncture / Unknown 01/20/2024 9:17 AM EST 01/20/2024 9:17 AM EST Dakota Armando MD LAB BLOOD ORDERABLES Performing Organization Address City/State/[facility] Co de Phone Number [place] [facility] [place] [address] [place] [address] documented in this encounter Visit Diagnoses Diagnosis [...] Documents on File Type Date Recorded 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
--- OUTSIDE RECORDS SUMMARY | 2024-04-18 23:58 | External Medical Summary | Summary of Care ---
Author Name Unknown Organization [facility] Address [address] [place] [address] Phone [phone] Care Team Providers Care Land Management Forester Name Role Phone Sergio Barriga MD Primary Care Provider + Reason for Visit * Reason Comments Procedure Pump disconnect * Episode Based Medications (Routine) - Authorized Specialty Diagnoses / Procedures Referred By Contlexii hu Referred To Contact Diagnoses Encounter for antineoplastic chemotherapy 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) 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) Procedures MI LEUCOVORIN CALCIUM INJECTION MI FLUOROURACIL INJECTION MI IRINOTECAN INJECTION MI OXALIPLATIN MI FOSAPREPITANT INJECTION BEVACIZUMAB-BVZR, BIOSIMILAR, 10 MG (ZIRABEV), IV MI INJECTION, UDENYCA 0.5 MG Dakota Armando MD [address] [place], [place] [address] Anc Hem/Onc [facility] DEPT CLOSED - 10/08/23 [address] [place] [address] Referral ID Status Reason Start Date Expiration Date V isits Requested Visits Authorized [id number] Authorized 08/30/2023 11/24/2099 999 99 Encounter Details Date Type Department Care Team (Latest Contact Info) Description 02/06/2024 12:00 PM EDT Immunization/ Injection Hematology/Oncology Treatment, [place] [address] [place] [address] Nurse, Med 4 [address] [place] [address] Encounter for antineoplastic chemotherapy*; 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); 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) Allergies Active Allergy Reactions Criticality Noted Date Comments Lisinopril Cough Low 08/07/2019 documented as of this encounter (statuses as of 02/06/2024) Medications Medication Sig Dispensed Refills Start Date End Date Status Boost 100 Calorie Smart Oral Liquid Take by mouth. 0 Act miley Multi Vitamin Daily Oral Tablet Take by mouth. 0 Act miley Aspirin 81 MG Oral Tablet Delayed Release Take 1 Tablet by mouth in the morning. 0 Active Pancrelipase (Pcf-Xmnk-Dyjh) 08[address] UNIT Oral Capsule Delayed Release Particles (Creon 36071) 2 cap with meals, 1 with larger [...] as of this encounter (statuses as of 02/06/2024) Active Problems Problem Noted Date Diagnosed Date Malignant neoplasm of body of pancreas Metastasis to liver 08/30/2023 Encounter for antineoplastic chemotherapy 2022 History of carcinoma of pancreas 07/18/2023 Post-viral cough syndrome 07/09/2023 Upper airway cough syndrome 07/09/2023 History of 2019 novel coronavirus disease (COVID -19) 10/16/2022 Coronary artery disease invo lving [place] coronary artery of [place] heart without angina pectoris 08/20/2022 Overview: Severe [...] lipids WNL Factor V+heteroqygous. 04/10 colon-Dr Case [facility] 2 polyps 1 tubular adenoma. Kevin 6y 2013 sleep study [facility] WNL [address] Elena [facility] Essential hypertension with goal [...] as of this encounter (statuses as of 02/06/2024) Resolved Problems Problem Noted Date Diagnosed Date [...] WNL, antiphos lipids WNL Factor V+heteroqygous. FM PU-NOXW-IVCCD DIS NEC documented as of this encounter (statuses as of 02/06/2024) Immunizations Name Administration Dates Next Due COVID-19 mRNA, LNP-s, No Pre serve, 2-Dose Series ([employer]) 01/13/2022,07/21/2021,02/01/2021,01/04 COVID-19, MRNA-LNP, 23-24, P F, 30 MCG/0.3 mL, 12 YRS AND ABOVE, IM ([employer]) 09/12/2023 Covid-19, Mrna, Lnp-s, Pf, B ivalent, 30 Mcg, IM, 12 yrs and above ([employer]) 08/16/2022 HEP A - Hepatitis A (Adult [...] Nursing Notes * Jing Bray RN - 02/06/2024 3:34 PM EDT Chair 9, pump disconnect. CADD pump indicates infusion is complete, reservoir volume 0ml; line clamped/disconnected from VAD. Pt has no acute concerns to report today. VAD flushed with 10 ml NSS and Heparin 5 ml (100 units/ml). Soriano needle removed intact. Pt discharged in stable condition. documented in this encounter Plan of Treatment Upcoming Encounters Date Type Department Care Team (Late st Contact Info) Description 02/07/2024 1:00 PM EDT Immunization/Injecti on Hematology/Oncology Treatment, [place] [address] [facility], [place] [id number] Nurse, Med [address] [place], [place] [address] 02/17/2024 9:10 AM EDT Laboratory Laboratory [facility] [place] [address] [place] [address] Rehana, Lab Scenery [address] [place], [place] [address] 02/18/2024 8:45 AM EDT Hem/Onc Treatment Hematology/Oncology Treatment, [place] [address] [facility] [place], [place] [address] Park, Chair 7 Hem Onc Scenery [address] [place] [address] 03/02/2024 9:10 AM EDT Laboratory Laboratory [facility] Rehana [place] [address] [place], [place] [phone] Rehana, Lab Scenery [address] [facility] [place], [place] [address] 03/03/2024 10:30 AM EDT Hem/Onc Treatment Hematology/Oncology Treatment, [place] [address] [facility] [place], [place] [address] Rehana, Chair 4 Hem Onc Scenery [address] [place] [address] 03/16/2024 8:50 AM EDT Laboratory Laboratory [facility] Rehana [place] [address] [place], [place] [phone] Rehana, Lab Scenery [address] [facility] [place] [address] 03/17/2024 9:00 AM EDT Office Visit Hematology/Oncology [facility] Rehana [place] [address] [place], [place] [phone] Amber Huizar CRNP [address] [place] [address] 03/17/2024 9:30 AM EDT Hem/Onc Treatment Hematology/Oncology Treatment, [place] [address] [place] [phone] Park, Chair 8 Hem Onc [facility] [address] [facility] [place] [address] 07/20/2024 10:15 AM EDT Office Visit Dermatology [facility] [address] [facility] [place] [address] Cal Jernigan MD [address] [facility] [place] [address] 07/21/2024 1:45 PM EDT Office Visit Hematology/Oncology [facility] [address] [place], [place] [phone] Dakota Armando MD 200 [facility] [place], [place] [address] 07/24/2024 11:40 AM EDT Office Visit Family Practice [facility] [address] [place] [address] Sergio Barriga MD [address] [facility] [place] [address] Scheduled Procedures Name Priority Associated Diagnoses Date/Ti [...] this encounter Medical Devices Implanted Type Area Auto Suspension And Steering Mechanic Device Identifier Shelf Expiration Date Model / Serial / Lot Duraclip 16mm Xlg Repostn - [id number] Implanted:Qty : 1 on 07/17/2021 by Guillermo Jones DO [place] [facility] [employer] REY[employer] [id number] 01/10/2024 [id number] / / [id number] Stent Viabil Biliary [id number] - [id number] Implanted:Qty : 1 on 07/17/2021 by Guillermo Jones DO [place] [facility] [employer] [id number] 03/04/2024 [id number] / [id number] / [id number] Port Implant W/8f Poly Cath - [id number] Implanted:Qty : 1 on 09/13/2023 by Gary Rodriguez DO at OR [facility] Right: Chest CR BARD : PERIPHERAL VASCULAR [id number] 04/24/2025 [id number] / / [id number] documented as of this encounter Visit Diagnoses Diagnosis Encounter for antineoplastic chemotherapy- Primary 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) Malignant neoplasm of body of pancreas documented in this encounter Administered Medications Active Administered Medications - up to 3 most recent administrations Medication Order MAR Action Action Date Dose Rate Site hEParin 100 UNIT/ML Lock Flush inj 500 Units 500 Units (5 mL), IV Lock, PRN Other, IV Flush, Starting on Marilia 02/06/24 at 1156, Until 02/07/24 at 1155, For 24 hours, Do not flush if lock, PICC, or central line not in place; IV infusing or unable to flush. Given 02/06/2024 11:59 AM EDT 500 Units sodium chloride 0.9 % flush central line 10 mL 10 mL, IV Push, PRN Other, IV Flush, Starting on Marilia 02/06/24 at 1156, Until 02/07/24 at 1155, For 24 hours, Do not flush if lock, PICC, or central line not in place; IV infusing or unable to flush. 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 Healthcare Agents on File Name Relationship Healthcare Agent Relationship Communication Virginie rCamer Spouse Health Care Agen t (per Health Care Power of Sales Engagement Manager document) [email or web address] Temo Cramer Sibling First Alternate Health Care Agent (per Health Care Power of Sales Engagement Manager document) .[employer]ge Care Teams Land Management Forester Relationship Specialty Start Date End Date Sergio Barriga MD [address] [place] [address] PCP - General Family Medicine 08/07/19 documented as of this encounter
--- OUTSIDE RECORDS SUMMARY | 2024-04-18 23:58 | External Medical Summary | Summary of Care ---
Author Name Unknown Organization [facility] Address [address] [place] [address] Phone [phone] Care Team Providers Care Car Groomer Name Role Phone Sergio Barriga MD Primary Care Provider + Reason for Visit * Reason Comments Chemotherapy FOLFIRINOX D1C9 * Episode Based Medications (Routine) - Authorized [...] 0.5 MG Dakota Armando MD [address] [place] [address] Anc Hem/Onc [facility] DEPT CLOSED - 10/08/23 [address] [place] [address] Referral ID Status Reason Start Date Expiration Date V isits Requested Visits Authorized [id number] Authorized 08/30/2023 11/24/2099 999 99 Encounter Details Date Type Department Care Team (Latest Contact Info) Description 02/04/2024 9:15 AM EDT Hem/Onc Treatment Hematology/Oncolog y Treatment, [place] [address] [place] [address] Rehana, Chair 10 Hem Onc Scenery [address] [place] [address] Encounter for antineoplastic chemotherapy*; 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); 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) Allergies Active Allergy Reactions Criticality Noted Date Comments Lisinopril Cough Low 08/07/2019 documented as of this encounter (statuses as of 02/04/2024) Medications Medication Sig Dispensed Refills Start Date End Date Status Boost 100 Calorie Smart Oral Liquid Take by mouth. 0 Act miley Multi Vitamin Daily Oral Tablet Take by mouth. 0 Act miley Aspirin 81 MG Oral Tablet Delayed Release Take 1 Tablet by mouth in the morning. 0 Active Pancrelipase (Dih-Qwwq-Mkws) 20[address] UNIT Oral Capsule Delayed Release Particles (Creon 74727) 2 cap with meals, 1 with larger [...] as of this encounter (statuses as of 02/04/2024) Active Problems Problem Noted Date Diagnosed Date Malignant neoplasm of body of pancreas Metastasis to liver 08/30/2023 Encounter for antineoplastic chemotherapy 2022 History of carcinoma of pancreas 07/18/2023 Post-viral cough syndrome 07/09/2023 Upper airway cough syndrome 07/09/2023 History of 2019 novel coronavirus disease (COVID -19) 10/16/2022 Coronary artery disease invo lving [place] coronary artery of [place] heart without angina pectoris 08/20/2022 Overview: [...] WNL Factor V+heteroqygous. 04/10 colon-Dr Case [facility] 2 polyps 1 tubular adenoma. Kevin 6y 2013 sleep study [facility] WNL [address] Elena [facility] Essential hypertension with goal blood pressure [...] as of this encounter (statuses as of 02/04/2024) Resolved Problems Problem Noted Date Diagnosed Date [...] WNL, antiphos lipids WNL Factor V+heteroqygous. FM HQ-VHNA-JSGDL DIS NEC documented as of this encounter (statuses as of 02/04/2024) Immunizations Name Administration Dates Next Due COVID-19 mRNA, LNP-s, No Pre serve, 2-Dose Series ([employer]) 01/13/2022,07/21/2021,02/01/2021,01/04 COVID-19, MRNA-LNP, 23-24, P F, 30 MCG/0.3 mL, 12 YRS AND ABOVE, IM ([facility]) 09/12/2023 Covid-19, Mrna, Lnp-s, Pf, B ivalent, 30 Mcg, IM, 12 yrs and above ([employer]) 08/16/2022 HEP A - Hepatitis A (Adult [...] Care Team (Late st Contact Info) Description 02/06/2024 12:00 PM EDT Immunization/Injecti on Hematology/[address] [phone] Nurse, Med 4 [address] [place] [address] 02/07/2024 1:00 PM EDT Immunization/Injecti on Hematology/Oncology Treatment, [place] 200 [facility] [place] [phone] Nurse, Med [address] [place] [address] 02/17/2024 9:10 AM EDT [place] [facility] [place] [address] [place], [place] [phone] Rehana, Lab Scenery [address] [place], [place] [address] 02/18/2024 8:45 AM EDT [facility] 200 [facility], [place] [address] Rehana, Chair 7 Hem Onc Scenery [address] [place], [place] [address] 03/02/2024 9:10 AM EDT Laboratory Laboratory [facility] Rehana [place] [address] [place], [place] [address] Rehana, Lab Scenery [address] [place], [place] [address] 03/03/2024 10:30 AM EDT [facility] [address] [facility], [place] [address] Rehana, Chair 4 Hem Onc Scenery [address] [place], [place] [address] 03/16/2024 8:50 AM EDT Laboratory Laboratory [facility] Rehana [place] [address] [place], [place] [address] Rehana, Lab Scenery [address] [place], [place] [address] 03/17/2024 9:00 AM EDT Office Visit Hematology/Oncology [facility] Rehana [place] [address] [place], [place] [address] Amber Huizar CRNP [address] [place] [address] 03/17/2024 9:30 AM EDT [facility] [address] [place] [address] Park, Chair 8 Hem Onc [facility] [address] [place] [address] 07/20/2024 10:15 AM EDT Office Visit Dermatology [facility] [address] [facility] [place], [place] [address] Cal Jernigan MD [address] [facility] [place], [place] [address] 07/21/2024 1:45 PM EDT Office Visit Hematology/Oncology [facility] [address] [facility] [place], [place] [phone] Dakota Armando MD [address] [place] [address] 07/24/2024 11:40 AM EDT Office Visit Family Practice [facility] [address] [place] [address] Sergio Barriga MD [address] [place] [address] Scheduled Procedures Name Priority Associated Diagnoses Date/Ti [...] this encounter Medical Devices Implanted Type Area Computer Technical Specialist Device Identifier Shelf Expiration Date Model / Serial / Lot Duraclip 16mm Xlg Repostn - [id number] Implanted:Qty : 1 on 07/17/2021 by Guillermo Jones DO at [place]COPY [facility] [place] [employer] [id number] 01/10/2024 [id number] / / [id number] Stent Viabil Biliary [id number] - [id number] Implanted:Qty : 1 on 07/17/2021 by Guillermo Jones DO at [facility] [place] [employer] REYNALDO [id number] 03/04/2024 [id number] / [id number] / [id number] Port Implant W/8f Poly Cath - [id number] Implanted:Qty : 1 on 09/13/2023 by Gary Rodriguez DO at OR [facility] Right: Chest CR BARD : PERIPHERAL VASCULAR [id number] 04/24/2025 [id number] / / [id number] documented as of this encounter Visit Diagnoses Diagnosis Encounter for antineoplastic chemotherapy- Primary 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) Malignant neoplasm of body of pancreas documented in this encounter Administered Medications Active Administered Medications - up to 3 most recent administrations Medication Order MAR Action Action Date Dose Rate Site D5W IV solution Intravenous, at 50 mL/hr, CONTINUOUS, Starting on Sat02/04/24 at 1015, Until Sat02/04/24 at 2014 Start Infusion 02/04/2024 9:30 AM EDT 500 mL 50 mL/hr diphenhydrAMINE (Benadryl) inj 50 mg 50 mg, IV Push, ONCE PRN Other, Hypersensitivity Reaction, Starting on Sat02/04/24 at 0932, Until Sat02/05/24 at 0931, For 24 hours EPINEPHrine 1 MG/ML inj 0.3 mg 0.3 mg, Intramuscular, ONCE PRN Other, Hypersensitivity Reaction or Anaphylaxis, Starting on Sat02/04/24 at 09, Until Sat02/05/24 at 0931, For 24 hours hEParin 100 UNIT/ML Lock Flush inj 500 Units 500 Units (5 mL), IV Lock, PRN Other, IV Flush, Starting on Sat02/04/24 at 09, Until Sat02/05/24 at 09, For 24 hours, Do not flush if lock, PICC, or central line not in place; IV infusing or unable to flush. Hydrocortisone Sod Suc (PF) (Solu-Cortef) inj 100 mg 100 mg, IV Push, ONCE PRN Other, Hypersensitivity Reaction, Starting on Sat02/04/24 at 0932, Until Sat02/05/24 at 0931, For 24 hours oxygen GAS Inhalation, OXYGEN, First dose on Sat02/04/24 at 1015, Until Discontinued, Device/Managed by: Low Flow Device, [...] less than 85% and when escalating delivery device. sodium chloride 0.9 % flush central line 10 mL 10 mL, IV Push, PRN Other, IV Flush, Starting on Sat02/04/24 at 0932, Until Sat02/05/24 at 0931, For 24 hours, Do not flush if lock, PICC, or central line not in place; IV infusing or unable to flush. 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
--- OUTSIDE RECORDS SUMMARY | 2024-04-18 23:58 | External Medical Summary | Summary of Care ---
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) Procedures LA LEUCOVORIN CALCIUM INJECTION LA FLUOROURACIL INJECTION LA IRINOTECAN INJECTION LA OXALIPLATIN LA FOSAPREPITANT INJECTION BEVACIZUMAB-BVZR, BIOSIMILAR, 10 MG (ZIRABEV), IV LA INJECTION, UDENYCA 0.5 MG Dakota Armando MD [address] [place], [place] [address] Anc Hem/Onc [facility] DEPT CLOSED - 10/08/23 [address] [place] [address] Referral ID Status Reason Start Date Expiration Date V isits Requested Visits Authorized [id number] Authorized 08/30/2023 11/24/2099 999 99 Encounter Details Date Type Department Care Team (Latest Contact Info) Description 02/07/2024 1:00 PM EDT Immunization/ Injection Hematology/Oncology Treatment, [place] [address] [place] [address] Nurse, Med 4 [address] [place] [address] Encounter for antineoplastic chemotherapy*; 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); 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) Allergies Active Allergy Reactions Criticality Noted Date Comments Lisinopril Cough Low 08/07/2019 documented as of this encounter (statuses as of 02/07/2024) Medications Medication Sig Dispensed Refills Start Date End Date Status Boost 100 Calorie Smart Oral Liquid Take by mouth. 0 Act miley Multi Vitamin Daily Oral Tablet Take by mouth. 0 Act miley Aspirin 81 MG Oral Tablet Delayed Release Take 1 Tablet by mouth in the morning. 0 Active Pancrelipase (Uou-Lcwp-Wkem) 41002-[address] UNIT Oral Capsule Delayed Release Particles (Creon 40693) 2 cap with meals, 1 with larger [...] as of this encounter (statuses as of 02/07/2024) Active Problems Problem Noted Date Diagnosed Date Malignant neoplasm of body of pancreas Metastasis to liver 08/30/2023 Encounter for antineoplastic chemotherapy 2022 History of carcinoma of pancreas 07/18/2023 Post-viral cough syndrome 07/09/2023 Upper airway cough syndrome 07/09/2023 History of 2019 novel coronavirus disease (COVID -19) 10/16/2022 Coronary artery disease invo lving [place] coronary artery of [place] heart without angina pectoris 08/20/2022 Overview: [...] WNL Factor V+heteroqygous. 04/10 colon-Dr Case [facility] 2 polyps 1 tubular adenoma. Kevin 6y 2013 sleep study [facility] WNL [address] Elena [facility] Essential hypertension with goal blood pressure less [...] as of this encounter (statuses as of 02/07/2024) Resolved Problems Problem Noted Date Diagnosed Date [...] WNL, antiphos lipids WNL Factor V+heteroqygous. FM XF-GQAF-YCEIT DIS NEC documented as of this encounter (statuses as of 02/07/2024) Immunizations Name Administration Dates Next Due COVID-19 mRNA, LNP-s, No Pre serve, 2-Dose Series ([employer]) 01/13/2022,07/21/2021,02/01/2021,01/04 COVID-19, MRNA-LNP, 23-24, P F, 30 MCG/0.3 mL, 12 YRS AND ABOVE, IM ([employer]) 09/12/2023 Covid-19, Mrna, Lnp-s, Pf, B ivalent, 30 Mcg, IM, 12 yrs and above ([email or web address]) 08/16/2022 HEP A - Hepatitis A (Adult [...] Nursing Notes * Nereyda Xiao LPN - 02/07/2024 1:31 PM EDT Pt arrived for Udencya injection. Administered in [place]. Pt tolerated well. To return in 2 weeks. Discharged in stable condition. documented in this encounter Plan of Treatment Upcoming Encounters Date Type Department Care Team (Late st Contact Info) Description 02/17/2024 9:10 AM EDT Laboratory Laboratory [facility] [place] [address] [place], [place] [address] Rehana, Lab Scenery [address] [place], [place] [address] 02/18/2024 8:45 AM EDT [facility] [address] [facility], [place] [address] Rehana, Chair 7 Hem Onc Scenery [address] [place], [place] [address] 03/02/2024 9:10 AM EDT Laboratory Laboratory [facility] [place] [address] [place], [place] [address] Rehana, Lab Scenery [address] [place], [place] [address] 03/03/2024 10:30 AM EDT Hem/Onc Treatment Hematology/Oncology Treatment, [place] [address] [facility], [place] [address] Rehana, Chair 4 Hem Onc Scenery [address] [place], [place] [address] 03/16/2024 8:50 AM EDT Laboratory Laboratory [facility] [place] [address] [place], [place] [address] Rehana, Lab Scenery [address] [place], [place] [address] 03/17/2024 9:00 AM EDT Office Visit Hematology/Oncology [facility] [place] [address] [place] [address] Amber Huizar CRNP [address] [place] [address] [place] [address] 03/17/2024 9:30 AM EDT Hem/Onc Treatment Hematology/Oncology Treatment, [place] [address] [facility], [place] [address] Rehana, Chair 8 Hem Onc Scenery [address] [place] [address] 07/20/2024 10:15 AM EDT Office Visit Dermatology [facility] [address] [place] [address] Cal Jernigan MD 200 [facility] [place] [address] 07/21/2024 1:45 PM EDT Office Visit Hematology/Oncology [facility] [address] [place] [address] Dakota Armando MD 200 [facility] [place] [address] 07/24/2024 11:40 AM EDT Office Visit Family Practice [facility] [address] [place] [address] Sergio Barriga MD [address] [place] [address] Scheduled Procedures Name Priority Associated Diagnoses Date/Ti [...] 04/11/2016, 07/21/1999, 07/21/1999 Zoster Vaccines Completed 09/02/2019, 0706/2019, 03/22/2011 Pneumococcal Vaccine: 65+ Years Completed 08/12/2020, [...] this encounter Medical Devices Implanted Type Area Traffic I Manager Device Identifier Shelf Expiration Date Model / Serial / Lot Duraclip 16mm Xlg Repostn - [id number] Implanted:Qty : 1 on 07/17/2021 [place] Guillermo Jones DO [place] [facility] [place] [employer] [id number] 01/10/2024 [id number] / / [id number] Stent Viabil Biliary [id number] - [id number] Implanted:Qty : 1 on 07/17/2021 by Guillermo Jones DO [place] [facility] [place] [employer] [id number] 03/04/2024 [id number] / [id number] / [id number] Port Implant W/8f Poly Cath - [id number] Implanted:Qty : 1 on 09/13/2023 by Gary Rodriguez DO at [facility] Right: Chest CR BARD : PERIPHERAL VASCULAR [id number] 04/24/2025 [id number] / / [id number] documented as of this encounter Visit Diagnoses [...] Documents on File Type Date Recorded Patient Bowstring Maker Expl anation Advance Directives and Living [...] Agen t (per Health Care Power of Mail Delivery Supervisor document) [email or web address] Temo Bela Sibling First Alternate Health Care Agent (per Health Care Power of Mail Delivery Supervisor document) [email or web address] Care Teams Sales And Marketing Intern Relationship Specialty Start Date End Date Sergio Barriga MD [address] [place] [address] PCP - General Family Medicine 08/07/19 documented as of this encounter
--- OUTSIDE RECORDS SUMMARY | 2024-04-18 23:58 | External Medical Summary | Summary of Care ---
Author Name Unknown Organization [facility] Address [address] [place] [address] Phone [phone] Care Team Providers Care Clinical Haematologist Name Role Phone Sergio Barriga MD Primary [...] MG Dakota Armando MD [address] [place], [place] [address] Anc Hem/Onc [facility] DEPT CLOSED - 10/08/23 [address] [place] [address] Referral ID Status Reason Start Date Expiration Date V isits Requested Visits Authorized [id number] Authorized 08/30/2023 11/24/2099 999 99 Encounter Details Date Type Department Care Team (Latest Contact Info) Description 01/21/2024 9:15 AM EST Hem/Onc Treatment Hematology/Oncolog y Treatment, [place] [address] [place] [address] Rehana, Chair 8 Hem Onc Scenery [address] [place] [address] Encounter for antineoplastic chemotherapy*; Metastasis to liver [...] mouth in the morning. 0 Active Pancrelipase (Uaz-Jkib-Qapl) 48681-[address] UNIT Oral Capsule Delayed Release Particles (Creon 63216) 2 cap with meals, 1 with larger [...] -19) 10/16/2022 Coronary artery disease invo lving [place] coronary artery of [place] heart without angina pectoris 08/20/2022 Overview: Severe [...] lipids WNL Factor V+heteroqygous. 04/10 colon-Dr Case [facility] 2 polyps 1 tubular adenoma. Kevin 6y 2013 sleep study [facility] WNL [address] Elena [facility] Essential hypertension with goal blood [...] WNL, antiphos lipids WNL Factor V+heteroqygous. FM US-BITD-VXWCJ DIS NEC documented as of this encounter (statuses as of 02/11/2024) Immunizations Name Administration Dates Next Due COVID-19 mRNA, LNP-s, No Pre serve, 2-Dose Series ([employer]) 01/13/2022,07/21/2021,02/01/2021,01/04 COVID-19, MRNA-LNP, 23-24, P F, 30 MCG/0.3 mL, 12 YRS AND ABOVE, IM ([facility] [employer] 09/12/2023 Covid-19, Mrna, Lnp-s, Pf, B ivalent, 30 Mcg, IM, 12 yrs and above ([employer]) 08/16/2022 HEP A - Hepatitis A (Adult [...] 02/17/2024 9:10 AM EDT Laboratory Laboratory [facility] [place] [address] [place] [address] Rehana, Lab Scenery [address] [place], [place] [address] 02/18/2024 8:45 AM EDT Hem/Onc Treatment [facility] [place] [facility] [address] Rehana, Chair 7 Hem Onc Scenery [address] [place] [address] 03/02/2024 9:10 AM EDT Laboratory Laboratory [facility] [place] [address] [place] [address] Rehana, Lab Scenery [address] [facility] [place] [place] [address] 03/03/2024 10:30 AM EDT Hem/Onc Treatment Hematology/Oncology Treatment, [place] [address] [facility] [place] [address] Rehana, Chair 4 Hem Onc Scenery [address] [place], [place] [address] 03/16/2024 8:50 AM EDT Laboratory Laboratory [facility] [place] [address] [place] [address] Rehana, Lab Scenery [address] [facility] [place] [address] 03/17/2024 9:00 AM EDT Office Visit Hematology/Oncology [facility] [place] [address] [place] [phone] Amber Huizar CRNP [address] [facility] [place] [address] 03/17/2024 9:30 AM EDT Hem/Onc Treatment Hematology/Oncology Treatment, [place] [address] [facility] [address] [place] [address] Rehana, Chair 8 Hem Onc [address] [place] [address] 07/20/2024 10:15 AM EDT Office Visit Dermatology [facility] [place] [address] [facility] [place] [address] Cal Jernigan MD [address] [facility] [place] [address] 07/21/2024 1:45 PM EDT Office Visit Hematology/Oncology [facility] [place] [address] [facility] [place] [phone] Dakota Armando MD [address] [facility] [place] [address] 07/24/2024 11:40 AM EDT Office Visit Family Practice [facility] [address] [facility] [place] [address] Sergio Barriga MD 132 [facility] [place] [address] Scheduled Procedures Name Priority Associated Diagnoses Date/Ti [...] this encounter Medical Devices Implanted Type Area Equipment Coordinator Device Identifier Shelf Expiration Date Model / Serial / Lot Duraclip 16mm Xlg Repostn - [id number] Implanted:Qty : 1 on 07/17/2021 by Guillermo Jones DO [place] [facility] [place] [employer] [id number] 01/10/2024 [id number] / / [id number] Stent Viabil Biliary [id number] - [id number] Implanted:Qty : 1 on 07/17/2021 by Guillermo Jones DO [place] [facility] [employer] [id number] 03/04/2024 [id number] / [id number] / [id number] Port Implant W/8f Poly Cath - [id number] Implanted:Qty : 1 on 09/13/2023 by Gary Rodriguez DO at OR [facility] Right: Chest CR BARD : PERIPHERAL VASCULAR [id number] 04/24/2025 [id number] / / [id number] documented as of this encounter Visit Diagnoses [...] Documents on File Type Date Recorded Patient Television Engineer Expl anation Advance Directives and Living Will [...] Agen t (per Health Care Power of Turntable Operator document) [email or web address] Bela Sibling First Alternate Health Care Agent (per Health Care Power of Turntable Operator document) [email or web address] Care Teams Clinical Haematologist Relationship Specialty Start Date End Date Sergio Barriga MD [address] [place] [address] PCP - General Family Medicine 08/07/19 documented as of this encounter
--- OUTSIDE RECORDS SUMMARY | 2024-04-18 23:58 | External Medical Summary ---
Author Name Unknown Address Unknown Organization [facility] [place] [address] Laboratory Report Ordering Provider Test Date Status JOSE ROY 02/03/2024 09:28:56 Final Observation Date Value Abnormality Reference (Units ) Status BUN 02/03/2024 09:28:56 11 6-20 (mg/dL) Final Creatinine 02/03/2024 09:28:56 1.0 0.6-1.2 (mg/dL) Final Glomerular filtration rate/1.73 sq M.predicted [Volume Rate/Area] in Serum, Plasma or Blood by Creatinine-based formula (CKD-EPI) 02/03/2024 09:28:56 82 >=60 (mL/min) Final eGFR is calculated based on the CKD-EPI 2020 equation SODIUM 02/03/2024 09:28:56 139 135-146 (m mol/L) Final Potassium 02/03/2024 09:28:56 3.8 3.5-5.1 (m mol/L) Final Cl 02/03/2024 09:28:56 101 98-107 (mm ol/L) Final CO2 02/03/2024 09:28:56 28 22-32 (mmo l/L) Final Anion gap 02/03/2024 09:28:56 10 7-15 (mmol /L) Final Glucose 02/03/2024 09:28:56 156 Above high normal 70 -120 (mg/dL) Final Albumin 02/03/2024 09:28:56 3.6 Below low normal 3.8 -5.0 (g/dL) Final AST (Aspartate aminotransferase) 02/03/2024 09:28:56 41 10-50 (U/L) Fin al Alk Phos 02/03/2024 09:28:56 226 Above high normal 35 -130 (U/L) Final Bilirubin, Total 02/03/2024 09:28:56 0.2 <=1 .2 (mg/dL) Final Calcium 02/03/2024 09:28:56 9.3 8.4-10.2 ( mg/dL) Final Protein 02/03/2024 09:28:56 6.4 6.0-8.3 (g /dL) Final ALT (Alanine aminotransferase) 02/03/2024 09:28:56 49 10-50 (U/L) Silverio baker Performing Location [facility] [address] [place] [address]
--- OUTSIDE RECORDS SUMMARY | 2024-04-18 23:58 | External Medical Summary ---
Author Name Unknown Address Unknown Organization K[facility] [place] [address] Laboratory Report Ordering Provider Test Date Status JOSE ROY 02/03/2024 09:28:56 Final Observation Date Value Abnormality Reference (Units ) Status WBC, Total 02/03/2024 09:28:56 12.78 Above high normal 4 .00-10.80 (K/uL) Final RBC 02/03/2024 09:28:56 3.99 4.50-5.25 (M/uL) Final Hemoglobin 02/03/2024 09:28:56 11.3 Below low normal 14 .0-16.8 (g/dL) Final HCT 02/03/2024 09:28:56 36.6 Below low normal 40. 0-48.4 (%) Final MCV 02/03/2024 09:28:56 91.7 82.0-99.5 (fL) Final MCH 02/03/2024 09:28:56 28.3 27.0-34.0 (pg) Final MCHC 02/03/2024 09:28:56 30.9 32.0-36.0 (g/dL) Final RDW 02/03/2024 09:28:56 18.9 11.5-15.5 (%) Final Platelets 02/03/2024 09:28:56 249 140-400 (K /uL) Final MPV 02/03/2024 09:28:56 9.7 6.6-11.1 ( fL) Final Performing Location [facility] [address] [place] [address]
--- OUTSIDE RECORDS SUMMARY | 2024-04-18 23:58 | External Medical Summary | Summary of Care ---
Author Name Unknown Organization [facility] Address [address] [place] [address] Phone [phone] Care Team Providers Care Direct Marketing Executive Name Role Phone Sergio Barriga MD Primary Care Provider + Reason for Visit * Reason Comments Outpatient Testing Encounter Details Date Type Department Care Team (Late st Contact Info) Description 02/03/2024 9:20 AM EDT Laboratory Laboratory Scenery State Shaina Kimball [address] [place] [phone] Park, Lab Scenery [address] [place] [address] 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); 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) Allergies Active Allergy Reactions Criticality Noted Date Comments Lisinopril Cough Low 08/07/2019 documented as of this encounter (statuses as of 02/03/2024) Medications Medication Sig Dispensed Refills Start Date End Date Status Boost 100 Calorie Smart Oral Liquid Take by mouth. 0 Act miley Multi Vitamin Daily Oral Tablet Take by mouth. 0 Act miley Aspirin 81 MG Oral Tablet Delayed Release Take 1 Tablet by mouth in the morning. 0 Active Pancrelipase (Cmv-Yzno-Tagg) 35160-[address]55 UNIT Oral Capsule Delayed Release Particles (Creon 33930) 2 cap with meals, 1 with larger [...] as of this encounter (statuses as of 02/03/2024) Active Problems Problem Noted Date Diagnosed Date Malignant neoplasm of body of pancreas Metastasis to liver 08/30/2023 Encounter for antineoplastic chemotherapy 2022 History of carcinoma of pancreas 07/18/2023 Post-viral cough syndrome 07/09/2023 Upper airway cough syndrome 07/09/2023 History of 2019 novel coronavirus disease (COVID -19) 10/16/2022 Coronary artery disease invo lving [place] coronary artery of [place] heart without angina pectoris 08/20/2022 Overview: Severe [...] as of this encounter (statuses as of 02/03/2024) Resolved Problems Problem Noted Date Diagnosed Date [...] WNL, antiphos lipids WNL Factor V+heteroqygous. FM EV-ZBXJ-BVVPW DIS NEC documented as of this encounter (statuses as of 02/03/2024) Immunizations Name Administration Dates Next Due COVID-19 mRNA, LNP-s, No Pre serve, 2-Dose Series (Storrz) 01/13/2022,07/21/2021,02/01/2021,01/04 COVID-19, MRNA-LNP, 23-24, P F, 30 MCG/0.3 mL, 12 YRS AND ABOVE, IM (4 the stars-ComirnatBilneur) 09/12/2023 Covid-19, Mrna, Lnp-s, Pf, B ivalent, 30 Mcg, IM, 12 yrs and above (Storrz) 08/16/2022 HEP A - Hepatitis A (Adult [...] Care Team (Late st Contact Info) Description 02/04/2024 8:45 AM EDT Office Visit Hematology/Oncology [facility] [place] [address] [phone] Dakota Armando MD [address] [place] [address] 02/04/2024 9:15 AM EDT [facility] [address] [facility] [address] [place] [phone] Rehana, Chair 10 Hem Onc [place] [address] [place] [address] 07/20/2024 10:15 AM EDT Office Visit Dermatology [facility] [place] [address] [place] [address] Cal Jernigan MD [address] [place] [address] 07/21/2024 1:45 PM EDT Office Visit Hematology/Oncology [facility] [place] [address] [place] [phone] Dakota Armando MD [address] [place] [address] 07/24/2024 11:40 AM EDT Office Visit Family Practice [facility] [address] [address] Sergio Barriga MD [address] [place] [address] [address] Pending Results Name Type Priority Associated Diagnoses Date /Time COMPREHENSIVE METABOLIC PANEL Lab STAT 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) 02/03/2024 9:28 AM EDT Scheduled Procedures Name Priority Associated Diagnoses Date/Ti me COLONOSCOPY FLEXIBLE PROXIMA L DIAGNOSTIC Recall History of adenomatous polyp of colon Health Maintenance Due Date Last Done Comments Depression Screening 09/10/2023 09/10/2022 COLONOSCOPY-ANNUAL AGES 18-100 09/14/2023 09/14/2022, 09/14/2022, 04/02/2017 GFR 01/20/2025 01/20/2024, 12/26, 12/23/2023, Additional history exists Albumin/Creatinine Ratio 10/16/2025 10/16/2022, [...] this encounter Medical Devices Implanted Type Area Hob Machine Operator Device Identifier Shelf Expiration Date Model / Serial / Lot Duraclip 16mm Xlg Rustn - [id number] Implanted:Qty : 1 on 07/17/2021 by Guillermo Jones DO at [facility] [place] [id number] 01/10/2024 [id number] / / [id number] Stent Viabil Biliary [id number] - [id number] Implanted:Qty : 1 on 07/17/2021 by Guillermo Jones DO at ENDOS[facility] [employer] [id number] 03/04/2024 [id number] / [id number] / [id number] Port Implant W/8f Poly Cath - [id number] Implanted:Qty : 1 on 09/13/2023 by Gary Rodriguez DO at OR [facility] Right: Chest CR BARD : PERIPHERAL VASCULAR [id number] 04/24/2025 [id number] / / [id number] documented as of this encounter Procedures Procedure Name Priority Date/Time Associated Diagnosis Comments DIFFERENTIAL, AUTOMATED STAT 02/03/2024 9:28 AM EDT 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) CBC STAT 02/03/2024 9:28 AM EDT 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) CBC STAT 02/03/2024 9:28 AM EDT 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) documented in this encounter Results * (ABNORMAL) DIFFERENTIAL, AUTOMATED (02/03/2024 9:28 AM EDT) WBC 12.78(H) 4.00 - 10.80 K/uL 02/03/2024 9:36 AM EDT [facility] 56-02 Neutrophils % 73.6 40.0 - 75.0 % 02/03/2024 9:36 AM EDT LAB[facility]ATORY [facility] 56-02 Lymphocytes % 14.4(L) 18.0 - 42.0 % 02/03/2024 9:36 AM EDT [facility]ORY [facility] 56-02 Monocytes % 9.7 1.0 - 11.0 % 02/03/2024 9:36 AM EDT [facility] [place] 56-02 Eosinophils % 1.8 0.0 - 6.0 % 02/03/2024 9:36 AM EDT [facility] 56 Basophils % 0.5 0.0 - 2.0 % 02/03/2024 9:36 AM EDT [facility] Absolute Neutrophils 9.40(H) 1.80 - 7.70 K/uL 02/03/2024 9:36 AM EDT [facility] Absolute Lymphocytes 1.84 1.00 - 4.80 K/ul 02/03/2024 9:36 AM EDT [facility] Absolute Monocytes 1.24(H) 0.00 - 1.10 K/uL 02/03/2024 9:36 AM EDT [facility] Absolute Eosinophils 0.23 0.00 - 0.70 K/uL 02/03/2024 9:36 AM EDT [facility] Absolute Basophils 0.07 0.00 - 0.20 K/uL 02/03/2024 9:36 AM EDT [facility] Blood Venous blood specimen / Unknown Venipuncture / Unknown 02/03/2024 9:28 AM EDT 02/03/2024 9:31 AM EDT Dakota Armando MD LAB BLOOD ORDERABLES [facility] [address] [place] [address] * (ABNORMAL) CBC (02/03/2024 9:28 AM EDT) WBC 12.78(H) 4.00 - 10.80 K/uL 02/03/2024 9:36 AM EDT [facility] RBC 3.99 4.50 - 5.25 M/uL 02/03/2024 9:36 AM EDT [facility] HGB 11.3(L) 14.0 - 16.8 g/dL 02/03/2024 9:36 AM EDT [facility] HCT 36.6(L) 40.0 - 48.4 % 02/03/2024 9:36 AM EDT [facility] 56 MCV 91.7 82.0 - 99.5 fL 02/03/2024 9:36 AM EDT [facility] 56 MCH 28.3 27.0 - 34.0 pg 02/03/2024 9:36 AM EDT [facility] 56 MCHC 30.9 32.0 - 36.0 g/dL 02/03/2024 9:36 AM EDT [facility] 56 RDW 18.9 11.5 - 15.5 % 02/03/2024 9:36 AM EDT [facility] 56 PLT 249 140 - 400 K/uL 02/03/2024 9:36 AM EDT [place] [address] MPV 9.7 6.6 - 11.1 fL 02/03/2024 9:36 AM EDT [facility] 56 Blood Venous blood specimen / Unknown Venipuncture / Unknown 02/03/2024 9:28 AM EDT 02/03/2024 9:31 AM EDT Dakota Armando MD LAB BLOOD ORDERABLES [address] [place] [address] documented in this encounter Visit Diagnoses Diagnosis 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) Malignant neoplasm of body of pancreas 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 documented in this encounter Advance Directives Documents on File Type Date Recorded Patient Solar Tech Expl anation Advance Directives and Living [...] Agen t (per Health Care Power of Spot Remover document) [email or web address] First Alternate Health Care Agent (per Health Care Power of Spot Remover document) Care Teams Direct Marketing Executive Relationship Specialty Start Date End Date Sergio Barriga MD [address] [address] PCP - General Family Medicine 08/07/19 documented as of this encounter
--- OUTSIDE RECORDS SUMMARY | 2024-04-18 23:58 | External Medical Summary | Summary of Care ---
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 0 Active Pancrelipase (Pup-Degh-Fknh) 43919-[address] UNIT Oral Capsule Delayed Release Particles (Creon 93648) 2 cap with meals, 1 with larger [...] 138 mL infusion 4300 mg IV CONTINUOUS 02/03/2024 02/05/2024 Active documented as of this encounter (statuses as of 02/04/2024) Active Problems Problem Noted Date Diagnosed Date Malignant neoplasm of body of pancreas 3 Metastasis to liver 08/30/2023 Encounter for antineoplastic chemotherapy 2022 History of carcinoma of pancreas 07/18/2023 Post-viral cough syndrome 07/09/2023 Upper airway cough syndrome 07/09/2023 History of 2019 novel coronavirus disease (COVID -19) 10/16/2022 Coronary artery disease invo lving [place] coronary artery of [place] heart without angina pectoris 08/20/2022 Overview: Severe [...] WNL Factor V+heteroqygous. 04/10 colon-Dr Eller [facility] 2 polyps 1 tubular adenoma. Kevin 6y 2013 sleep study [facility] WNL [address] Elena [facility] Essential hypertension with goal blood [...] WNL, antiphos lipids WNL Factor V+heteroqygous. FM NJ-DMUW-RMYFU DIS NEC documented as of this encounter (statuses as of 02/04/2024) Immunizations Name Administration Dates Next Due COVID-19 mRNA, LNP-s, No Pre serve, 2-Dose Series ([facility]) 01/13/2022,07/21/2021,02/01/2021,01/04 COVID-19, MRNA-LNP, 23-24, P F, 30 MCG/0.3 mL, 12 YRS AND ABOVE, [facility] 09/12/2023 Covid-19, Mrna, Lnp-s, Pf, B [...] Sign Reading Time Taken Comments Blood Pressure 137/86 02/04/2024 8:30 AM EDT Pulse 74 02/04/2024 8:30 AM EDT Temperature 36.3 C (97.3 F) 02/04/2024 8:30 AM ED T Respiratory Rate - - Oxygen Saturation 98% 02/04/2024 8:30 AM EDT Inhaled Oxygen Concentration - - Weight 61 kg (134 lb 6.4 oz) 02/04/2024 8:30 AM EDT Height - - Body Mass Index 19.85 12/02/2023 2:17 PM EST documented in this [...] Progress Notes * Dakota Armando MD - 02/04/2024 8:45 AM EDT Hematology/Oncology Outpatient Clinic note Angie Kimball [address] [place] [address] Name: Rafael Cramer Date: 11/04/2023 CHIEF COMPLAINT: [...] 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 Cancer Staging Final pathology showed T2 N1 (01/17 lymph node positive for metastatic disease. Negative margin.) DATE OF DIAGNOSIS: 07/17/21 TREATMENT HISTORY: -He underwent Whipple's procedure by Dr. Mike Westbrook on 08/07/[address] [facility]. -He completed gemcitabine and Xeloda combination between 08/2021- 01/2022. CURRENT TREATMENT: mFOLFIRINOX every 14 days (09/17/23 - ) -Udenyca support D4 02/04/2024 --> cycle 9 with modified FOLFIRINOX. DIAGNOSTIC WORKUP: He was noticed to have [...] by Dr. Mike Westbrook on 08/07/[address] [facility]. Final pathology: -invasive poorly differentiated pancreatic [...] received 2nd opinion from medical oncologist from [place] who agreed with treatment plan. Also recommending after 12 treatments with FOLFIRINOX, he may consider the clinical trial of G12C inhibitor. He will need port for upcoming chemotherapy Would like to send the NGS checkup on the liver biopsy specimen ( done at [place]). Component Latest Ref Rng 09/30/2023 CA 19-9 [...] nausea, no vomiting, weight has remained stable 134 lb, ambulates slowly, has some mild tingling and numbness of extremities but It has remained stable mainly with the cold exposure. He denies any increasing shortness of breath, no abdominal pain. No bleeding from the sites. Past Medical History: Diagnosis Date Alcohol abuse 08/07/2019 Allergic disorder Allergy unspecified Asthma, severity to be determined Asthma Chronic insomnia 05/18/2019 Coronary artery disease involving [place] coronary artery of [place] heart without angina pectoris 08/20/2022 Severe noted [...] Bilateral Dr Mix COLONOSCOPY 04/02/2017 Dr Eller [facility] 2 polyps 1 tubular adenoma. COLONOSCOPY, DIAGNOSTIC (RECTUM) 09/14/2022 diverticulosis, fair prep, repeat 1 yr / [facility] COLORECTAL CANCER SCREEN;W/FLE 2006 EGD, FLEXIBLE,W/ENDOSCOPIC US 07/12/2021 pancreatic mass, GB sludge, CBD dilation, abnormal lymph nodes / [facility] EGD, W/ENDOSCOPIC US N/A 07/17/2021 ESOPHAGOGASTRODUODENOSCOPY (EGD), FLEXIBLE, TRANSORAL, ENDOSCOPIC ULTRASOUND performed by Guillermo Jones DO at [facility]OSCOPY [facility] 07/12/2021 [facility], DIAGNOSTIC, SPECIMEN COLLECTION N/A 07/17/2021 ENDOSCOPIC RETROGRADE CHOLANGIOPANCREATOGRAPHY ([facility]) DIAGNOSTIC performed by Guillermo Jones DO [facility] INSER TUNN ACC DEV;5 YRS/OLDER Right 09/13/2023 INSERT TUNNELED CENTRAL VENOUS ACCESS WITH SUBQ PORT performed by Gary Rodriguez DO at OR [facility] IR BIOPSY 08/21/2023 KNEE ARTHROSCOPY/DEBRIDEMENT Left 07/12/[address] Zhu left partial medical meniscectomy & chondroplasty. REMOVE PANCREAS, PARTIAL (WHIPPLE) 08/07/2021 [place]. Robot assisted. Dr Mike Westbrook. REMOVE TONSILS & ADENOIDS, UNDER 12 Tonsillectomy/Adenoids,<12 Y/O SHOULDER ARTHROSCOPY/DEBRIDEMENT Left 08/31/2014 Dr Zhu +biceps tenotomy debride labrum, subacromial decompression & distal clavicle excision. 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 Tobacco Use Smoking status: Never Smokeless tobacco: Never Vaping Use Vaping Use: Never used Substance and Sexual Activity Alcohol use: Yes Comment: 4 drinks/ day had stopped w/CA 2020, now rare. Drug use: Yes Frequency: 5.0 times per week Types: Marijuana Comment: oral caps. for appetite, relaxation. Sexual activity: Yes Partners: Female Comment: . 2 stepchildren. FOR[facility]LY [facility], [facility] & [place]. no grandkids Other Topics Concern Not on file Social History Narrative Likes gardening. Cabin in [facility]. Likes to weights, walking. Active PA [...] Tablet by mouth in the morning. Pancrelipase (Oqv-Ihwz-Tzvp) 84872-[address] UNIT Oral Capsule Delayed Release Particles (Creon 22802) 2 cap with meals, 1 with larger [...] No current facility-administered medications for this visit. Facility-Administered Medications Ordered in Other Visits Medication Dose Route Frequency Provider Last Rate Last Admin [START ON 02/04/2024] Fluorouracil (5-Fu) 4,300 mg for Home Infusion 2,400 mg/m2 (Treatment Plan Recorded) Intravenous Once Dakota Armando MD REVIEW OF SYSTEMS: See HPI - otherwise negative OBJECTIVE: BP 137/86 (BP Site: Right Arm, BP Position: Sitting, BP Cuff Size: Regular) | Pulse 74 | Temp 36.3 C (97.3 F) (Tympanic) | Wt 61 kg (134 lb 6.4 oz) | SpO2 98% | BMI 19.85 kg/m | BSA 1.72 m PHYSICAL EXAM: ECOG: Performance Status 1 [...] LABS: Blood workup done on 02/03/2024: -BUN/Creat: /1.0 -AST 41, ALT 49, alkaline phosphatase 226, bilirubin level 0.2 -WBC 12,700, H&H of 11.3/36.6, Platelet count of [id number]. -CA 19-9 level --> 540. ( 01/20/2024). [...] pelvis done in early January of 2024. He says that he will have a another reading of CT scan at [place] and also will have follow-up visit with medical oncologist over there. Overall may have slightly progressed in the recent imaging studies as well as based on CA 19-9 level. Clinically he is doing well and has not experienced significant side effects but I am anticipating worsening neuropathy in the near future. We talked about overall treatment goal which would be palliative and not curative. I do not think surgical intervention would be indicated. Will see him in about [address] Dakota Armando Hem/Onc (This note was completed using the dictation program Fluency Direct. As such, there may be misspellings word substitutions, or other variations that should not change the essence of the clinical content of this encounter note. If there is need for further clarification, please direct questions to the provider listed above.) documented in this encounter Nursing Notes * Kalin Bergeron MED ASSIST - 02/04/2024 8:32 AM EDT Patient identified by name and date of . Do you have any concerns about pain management for today's visit? No Living Will or Advance Directive for Health Care as noted on problem list. My [facility] is a way you can talk to your provider online through e-mail. Would you like to sign up? I can activate it for you? ALREADY ACTIVE BP 137/86 (BP Site: Right Arm, BP Position: Sitting, BP Cuff Size: Regular) | Pulse 74 | Temp 36.3 C (97.3 F) (Tympanic) | Wt 61 kg (134 lb 6.4 oz) | SpO2 98% | BMI 19.85 kg/m | BSA 1.72 m Patient was instructed to not get up [...] 12:00 PM EDT Immunization/Injecti on Hematology/Oncology Treatment, [place] [address] [phone] Nurse, Med [address] [address] 02/07/2024 1:00 PM EDT Immunization/Injecti on Hematology/Oncology Treatment, [place] [address] [phone] Nurse, Med [address] [address] 02/17/2024 9:10 AM EDT Laboratory Laboratory State Shaina Garcia [address] [phone] Park, Lab [facility] [address] [place] [address] [address] 02/18/2024 8:45 AM EDT Hem/Onc Treatment Hematology/Oncology Treatment, [place] [address] [place] [address] Rehana, Chair 7 Hem Onc [address] [place], [place] [address] 03/02/2024 9:10 AM EDT Laboratory Laboratory [facility] Rehana [place] [address] [place], [place] [address] Rehana, Lab Scenery [address] [place] [address] 03/03/2024 10:30 AM EDT [facility] [address] [facility], [place] [address] Rehana, Chair 4 Hem Onc [address] [place], [place] [address] 03/16/2024 8:50 AM EDT Laboratory Laboratory [facility] [place] [address] [place], [place] [address] Rehana, Lab Scenery [address] [place], [place] [address] 03/17/2024 9:00 AM EDT Office Visit Hematology/Oncology [facility] Rehana [place] [address] [place], [place] [address] Amber Huizar CRNP [address] [facility] [place] [address] 03/17/2024 9:30 AM EDT Hem/Onc Treatment Hematology/Oncology Treatment, [place] [address] [facility], [place] [address] Rehana, Chair 8 Hem Onc [address] [place], [place] [address] 07/20/2024 10:15 AM EDT Office Visit Dermatology [facility] [address] [facility] [place] [address] Cal Jernigan MD [address] [facility] [place] [address] 07/21/2024 1:45 PM EDT Office Visit Hematology/Oncology [facility] [address] [facility] [place] [phone] Dakota Armando MD 200 [facility] [place], [place] [address] 07/24/2024 11:40 AM EDT Office Visit Family Practice [facility] [address] [facility] [address] Sergio Barriga MD [address] [place] [address] Scheduled Procedures Name Priority Associated Diagnoses Date/Ti [...] this encounter Medical Devices Implanted Type Area Drive In Waiter/Waitress Device Identifier Shelf Expiration Date Model / Serial / Lot Duraclip 16mm Xlg Repostn - [id number] Implanted:Qty : 1 on 07/17/2021 by Guillermo Jones DO at [facility] [employer] [id number] 01/10/2024 [id number] / / [id number] Stent Viabil Biliary [id number] - [id number] Implanted:Qty : 1 on 07/17/2021 by Guillermo Jones DO at [facility] [place] [employer] [id number] 03/04/2024 [id number] / [id number] / [id number] Port Implant W/8f Poly Cath - [id number] Implanted:Qty : 1 on 09/13/2023 by Gary Rodriguez DO at OR [facility] Right: Chest CR BARD : PERIPHERAL VASCULAR [id number] 04/24/2025 [id number] / / [id number] documented as of this encounter Visit Diagnoses Diagnosis 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)- Primary Malignant neoplasm of body of pancreas 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 documented in this encounter Advance Directives Documents on File Type Date Recorded Patient Military Cook Expl anation Advance Directives and Living Will [...] Agen t (per Health Care Power of Rotor Casting Machine Operator document) @[email or web address] Temo Cruz First Alternate Health Care Agent (per Health Care Power of Rotor Casting Machine Operator document) Care Teams Professional Services Specialist Relationship Specialty Start Date End Date Sergio Barriga MD [address] [address] PCP - General Family Medicine 08/07/19 documented as of this encounter"
--- OUTSIDE RECORDS SUMMARY | 2024-04-18 23:58 | External Medical Summary | Summary of Care ---
Author Name Unknown Organization [facility] Address [address] [place] [address] Phone [phone] Care Team Providers Care Supervisor Last Model Department Name Role Phone Sergio Barriga MD Primary Care Provider + Encounter Details Date Type Department Care Team (Late st Contact Info) Description 02/03/2024 Orders Only [facility] RX [address] [place] [address] Dakota Armando MD 200 [facility] [place], [place] [address] Allergies Active Allergy Reactions Criticality Noted Date [...] mouth in the morning. 0 Active Pancrelipase (Fjo-Cczm-Cjmj) 53468-59897 UNIT Oral Capsule Delayed Release Particles (Creon 50874) 2 cap with meals, 1 with larger [...] -19) 10/16/2022 Coronary artery disease invo lving [place] coronary artery of [place] heart without angina pectoris 08/20/2022 Overview: [...] 04/10 colon-Dr Eller [facility] 2 polyps 1 tubular adenoma. Kevin 6y 2013 sleep study [facility] WNL [address] Elena [facility] Essential hypertension with goal blood pressure less [...] WNL, antiphos lipids WNL Factor V+heteroqygous. FM WF-PTJY-BTDWX DIS NEC documented as of this encounter (statuses as of 02/03/2024) Immunizations Name Administration Dates Next Due COVID-19 mRNA, LNP-s, No Pre serve, 2-Dose Series (Kangsheng Chuangxiang) 01/13/2022,07/21/2021,02/01/2021,01/04 COVID-19, MRNA-LNP, 23-24, P F, 30 MCG/0.3 mL, 12 YRS AND ABOVE, IM ([facility]) 09/12/2023 Covid-19, Mrna, Lnp-s, Pf, B ivalent, 30 Mcg, IM, 12 yrs and above (Kangsheng Chuangxiang) 08/16/2022 HEP A - Hepatitis A (Adult [...] Care Team (Latest Contact Info) Description 02/04/2024 8:45 AM EDT Office Visit Hematology/Oncolog y [facility] [address] [place] [phone] Dakota Armando MD [address] [place] [address] 02/04/2024 9:15 AM EDT Hem[facility] 200 [facility] [place], [place] [phone] Rehana, Chair 10 Hem Onc [place] [address] [address] [place] [address] Encounter for antineoplastic chemotherapy*; 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); 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) 07/20/2024 10:15 AM EDT Office Visit Dermatology [facility] [place] [address] [place] [address] Cal Jernigan MD [address] [place] [address] 07/21/2024 1:45 PM EDT Office Visit Hematology/Oncolog y [facility] [place] [address] [place] [phone] Dakota Armando MD [address] [place] [address] 07/24/2024 11:40 AM EDT Office Visit Family [facility] [address] [place] [address] Sergio Barriga MD [address] [place] [address] Scheduled Procedures Name Priority Associated Diagnoses Date/Ti [...] this encounter Medical Devices Implanted Type Area Correctional Medicine Physician Device Identifier Shelf Expiration Date Model / Serial / Lot Duraclip 16mm Xlg Repostn - [id number] Implanted:Qty : 1 on 07/17/2021 by Guillermo Jones DO at [place] [facility] [place] [id number] 01/10/2024 [id number] / / [id number] Stent Viabil Biliary [id number] - [id number] Implanted:Qty : 1 on 07/17/2021 by Guillermo Jones DO at [place] [facility] [employer] [place] [id number] 03/04/2024 [id number] / [id number] / [id number] Port Implant W/8f Poly Cath - [id number] Implanted:Qty : 1 on 09/13/2023 by Gary Rodriguez DO at OR [facility] Right: Chest CR BARD : PERIPHERAL VASCULAR [id number] 04/24/2025 [id number] / / [id number] documented as of this encounter Advance Directives Documents on File Type Date Recorded Patient Home Appliances Mechanic Expl anation Advance Directives and Living Will [...] Agen t (per Health Care Power of Ship Unloader document) [email or web address] Temo Bela Sibling First Alternate Health Care Agent (per Health Care Power of Ship Unloader document) [email or web address] Care Teams Supervisor Last Model Department Relationship Specialty Start Date End Date Sergio Barriga MD [address] [place] [address] PCP - General Family Medicine 08/07/19 documented as of this encounter
--- OUTSIDE RECORDS SUMMARY | 2024-04-18 23:58 | External Medical Summary | Summary of Care ---
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) Procedures NM LEUCOVORIN CALCIUM INJECTION NM FLUOROURACIL INJECTION NM IRINOTECAN INJECTION NM OXALIPLATIN NM FOSAPREPITANT INJECTION BEVACIZUMAB-BVZR, BIOSIMILAR, 10 MG (ZIRABEV), IV NM INJECTION, UDENYCA 0.5 MG Dakota Armando MD [address] [place], [place] [address] Anc Hem/Onc [place] [facility] DEPT CLOSED - 10/08/23 [address] [place] [address] Referral ID Status Reason Start Date Expiration Date V isits Requested Visits Authorized [id number] Authorized 08/30/2023 11/24/2099 999 99 Encounter Details Date Type Department Care Team (Latest Contact Info) Description 01/21/2024 9:15 AM EST Hem/Onc Treatment Hematology/Oncolog [place] Treatment, [place] [address] [place] [address] Rehana, Chair 8 Hem Onc Scenery [address] [place] [address] Encounter for antineoplastic chemotherapy*; 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); 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 0 Act miley Multi Vitamin Daily Oral Tablet Take by mouth. 0 Act miley Aspirin 81 MG Oral Tablet Delayed Release Take 1 Tablet by mouth in the morning. 0 Active Pancrelipase (Kdu-Iibb-Fyaj) 92786-11446 UNIT Oral Capsule Delayed Release Particles (Creon [...] as of this encounter (statuses as of 02/10/2024) Active Problems Problem Noted Date Diagnosed Date Malignant neoplasm of body of pancreas Metastasis to liver 08/30/2023 Encounter for antineoplastic chemotherapy 2022 History of carcinoma of pancreas 07/18/2023 Post-viral cough syndrome 07/09/2023 Upper airway cough syndrome 07/09/2023 History of 2019 novel coronavirus disease (COVID -19) 10/16/2022 Coronary artery disease invo lving [place] coronary artery of [place] heart without angina pectoris 08/20/2022 Overview: Severe [...] WNL Factor V+heteroqygous. 04/10 colon-Dr Case [facility] 2 polyps 1 tubular adenoma. Kevin 6y 2013 sleep study [facility] WNL [address] Elena [facility] Essential hypertension with goal blood pressure [...] as of this encounter (statuses as of 02/10/2024) Resolved Problems Problem Noted Date Diagnosed Date [...] WNL, antiphos lipids WNL Factor V+heteroqygous. FM DD-EESO-DWYEI DIS NEC documented as of this encounter (statuses as of 02/10/2024) Immunizations Name Administration Dates Next Due COVID-19 mRNA, LNP-s, No Pre serve, 2-Dose Series (Camiant) 01/13/2022,07/21/2021,02/01/2021,01/04 COVID-19, MRNA-LNP, 23-24, P F, 30 MCG/0.3 mL, 12 YRS AND ABOVE, IM ([facility]) 09/12/2023 Covid-19, Mrna, Lnp-s, Pf, B ivalent, 30 Mcg, IM, 12 yrs and above (Camiant) 08/16/2022 HEP A - Hepatitis A (Adult [...] Description 02/17/2024 9:10 AM EDT Laboratory Laboratory [facility] [place] [address] [place] [phone] Rehana, Lab Scenery [address] [place], [place] [address] 02/18/2024 8:45 AM EDT Hem/Onc Treatment Hematology/Oncology Treatment, [place] [facility] [address] Rehana, Chair 7 Hem Onc [address] [place] [address] 03/02/2024 9:10 AM EDT Laboratory Laboratory [facility] [place] [address] [place] [address] Rehana, Lab Scenery [address] [facility] [place] [address] 03/03/2024 10:30 AM EDT Hem/Onc Treatment Hematology/Oncology Treatment, [place] [address] [facility] [place] [address] Rehana, Chair 4 Hem Onc Scenery [address] [place], [place] [address] 03/16/2024 8:50 AM EDT Laboratory Laboratory [facility] [place] [address] [place] [address] Rehana, Lab Scenery [address] [facility] [place] [address] 03/17/2024 9:00 AM EDT Office Visit Hematology/Oncology [facility] [place] [address] [place] [phone] Amber Huizar CRNP [address] [facility] [place] [address] 03/17/2024 9:30 AM EDT Hem/Onc Treatment Hematology/Oncology Treatment, [place] [address] [facility] [address] [place] [phone] Rehana, Chair 8 Hem Onc [address] [place] [address] 07/20/2024 10:15 AM EDT Office Visit Dermatology [facility] [place] [address] [facility] [place] [address] Cal Jernigan MD [address] [facility] [place] [address] 07/21/2024 1:45 PM EDT Office Visit Hematology/Oncology [facility] [place] [address] [facility] [place] [phone] Dakota Armando MD [address] [facility] [place] [address] 07/24/2024 11:40 AM EDT Office Visit Family Practice [facility] [address] [facility] [place] [address] Sergio Barriga MD 132 [facility] [place] [address] Scheduled Procedures Name Priority Associated Diagnoses Date/Ti [...] this encounter Medical Devices Implanted Type Area Plant Machinist Device Identifier Shelf Expiration Date Model / Serial / Lot Duraclip 16mm Xlg Repostn - [id number] Implanted:Qty : 1 on 07/17/2021 by Guillermo Jones DO [place] [facility] [employer] [place] [id number] 01/10/2024 [id number] / / [id number] Stent Viabil Biliary [id number] - [id number] Implanted:Qty : 1 on 07/17/2021 by Guillermo Jones DO at [place] [facility] [employer] [place] [id number] 03/04/2024 [id number] / [id number] / [id number] Port Implant W/8f Poly Cath - [id number] Implanted:Qty : 1 on 09/13/2023 by Gary Rodriguez DO at OR [facility] Right: Chest CR BARD : PERIPHERAL VASCULAR [id number] 04/24/2025 [id number] / / [id number] documented as of this encounter Visit Diagnoses [...] Documents on File Type Date Recorded Patient Academic Administrator Expl anation Advance Directives and Living [...] Agen t (per Health Care Power of Regulatory Submissions Specialist document) [email or web address] Temo Bela Sibling First Alternate Health Care Agent (per Health Care Power of Regulatory Submissions Specialist document) [email or web address] Care Teams Refinery Operator Helper Cracking Unit Relationship Specialty Start Date End Date Sergio Barriga MD [address] [place] [address] PCP - General Family Medicine 08/07/19 documented as of this encounter
--- OUTSIDE RECORDS SUMMARY | 2024-04-18 23:58 | External Medical Summary | Summary of Care ---
Author Name Unknown Organization [facility] Address [address] [place] [address] Phone [phone] Care Team Providers Care Wick And Base Assembler Name Role Phone Sergio Barriga MD Primary [...] UDENYCA 0.5 MG Dkaota Armando MD [address] [place], [place] [address] Anc Hem/Onc [place] DEPT CLOSED - 10/08/23 [address] [place] [address] Referral ID Status Reason Start Date Expiration Date V isits Requested Visits Authorized [id number] Authorized 08/30/2023 11/24/2099 999 99 Encounter Details Date Type Department Care Team (Latest Contact Info) Description 01/21/2024 9:15 AM EST Hem/Onc Treatment Hematology/Oncolog y Treatment, [place] [address] [place] [address] Rehana, Chair 8 Hem Onc Scenery [address] [place] [address] Encounter for antineoplastic chemotherapy*; Metastasis to liver [...] mouth in the morning. 0 Active Pancrelipase (Cki-Nnde-Hpcl) 53385-28[address] UNIT Oral Capsule Delayed Release Particles (Creon 12981) 2 cap with meals, 1 with larger [...] Coronary artery disease invo lving [place] coronary artery of [place] heart without angina pectoris 08/20/2022 Overview: Severe [...] Factor V+heteroqygous. 04/10 colon-Dr Case [facility] 2 polyps 1 tubular adenoma. Kevin 6y [address] [facility] WNL [address] [facility] Essential hypertension with goal blood pressure [...] WNL, antiphos lipids WNL Factor V+heteroqygous. FM XQ-WRZE-RELWD DIS NEC documented as of this encounter (statuses as of 02/10/2024) Immunizations Name Administration Dates Next Due COVID-19 mRNA, LNP-s, No Pre serve, 2-Dose Series (TerraLUX) 01/13/2022,07/21/2021,02/01/2021,01/04 COVID-19, MRNA-LNP, 23-24, P F, 30 MCG/0.3 mL, 12 YRS AND ABOVE, IM ([facility]) 09/12/2023 Covid-19, Mrna, Lnp-s, Pf, B ivalent, 30 Mcg, IM, 12 yrs and above (TerraLUX) 08/16/2022 HEP A - Hepatitis A (Adult [...] Description 02/17/2024 9:10 AM EDT Laboratory Laboratory [facility] [place] [address] [place] [phone] Rehana, Lab Scenery [address] [place], [place] [address] 02/18/2024 8:45 AM EDT Hem/Onc Treatment Hematology/Oncology Treatment, [place] [address] [facility] [address] Rehana, Chair 7 Hem Onc Scenery [address] [place] [address] 03/02/2024 9:10 AM EDT Laboratory Laboratory [facility] [place] [address] [place] [address] Rehana, Lab Scenery [address] [facility] [place] [address] 03/03/2024 10:30 AM EDT Hem/Onc Treatment Hematology/Oncology Treatment, [place] 200 [facility] [place] [address] Rehana, Chair 4 Hem Onc Scenery [address] [place], [place] [address] 03/16/2024 8:50 AM EDT Laboratory Laboratory [facility] [place] [address] [place] [address] Rehana, Lab Scenery [address] [facility] [place] [address] 03/17/2024 9:00 AM EDT Office Visit Hematology/Oncology [facility] [place] [address] [place] [phone] Amber Huizar CRNP 400 [facility] [place] [address] 03/17/2024 9:30 AM EDT Hem/Onc Treatment Hematology/Oncology Treatment, [place] [address] [facility] [address] [place] [phone] Rehana, Chair 8 Hem Onc [address] [place] [address] 07/20/2024 10:15 AM EDT Office Visit Dermatology [facility] [place] [address] [facility] [place] [address] Cal Jernigan MD 200 [facility] [place] [address] 07/21/2024 1:45 PM EDT Office Visit Hematology/Oncology [facility] [place] [address] [facility] [place] [phone] Dakota Armando MD 200 [facility] [place] [address] 07/24/2024 11:40 AM EDT Office Visit Family Practice [facility] [address] [facility] [place] [address] Sergio Barriga MD 132 [facility] [place] [address] Scheduled Procedures Name Priority Associated Diagnoses Date/Ti [...] this encounter Medical Devices Implanted Type Area Radiographer Cardiac Catheterization Device Identifier Shelf Expiration Date Model / Serial / Lot Duraclip 16mm Xlg Repostn - [id number] Implanted:Qty : 1 on 07/17/2021 by Guillermo Jones DO at [place] [facility] [employer] [place] [id number] 01/10/2024 [id number] / / [id number] Stent Viabil Biliary [id number] - [id number] Implanted:Qty : 1 on 07/17/2021 by Guillermo Jones DO at [facility] [employer] [place] [id number] 03/04/2024 [id number] / [id number] / [id number] Port Implant W/8f Poly Cath - [id number] Implanted:Qty : 1 on 09/13/2023 by Gary Rodriguez DO at OR [facility] Right: Chest CR BARD : PERIPHERAL VASCULAR [id number] 04/24/2025 [id number] / / [id number] documented as of this encounter Visit Diagnoses [...] Documents on File Type Date Recorded Patient Machine Design Engineer Expl anation Advance Directives and Living [...] Agen t (per Health Care Power of Clean Room Operator document) [email or web address] [email or web address] Bela Sibling First Alternate Health Care Agent (per Health Care Power of Clean Room Operator document) [email or web address] Care Teams Wick And Base Assembler Relationship Specialty Start Date End Date Sergio Barriga MD [address] [place] [address] PCP - General Family Medicine 08/07/19 documented as of this encounter
--- OUTSIDE RECORDS SUMMARY | 2024-04-18 23:58 | External Medical Summary | Summary of Care ---
Author Name Unknown Organization [facility] Address [address] [place] [address] Phone [phone] Care Team Providers Care Umbrella Repairer Name Role Phone Sergio Barriga MD Primary [...] MG Dakota Armando MD [address] [place], [place] [address] Anc Hem/Onc [place] [facility] DEPT CLOSED - 10/08/23 [address] [place] [address] Referral ID Status Reason Start Date Expiration Date V isits Requested Visits Authorized [id number] Authorized 08/30/2023 11/24/2099 999 99 Encounter Details Date Type Department Care Team (Latest Contact Info) Description 01/23/2024 12:15 PM EST Immunization/ Injection Hematology/Oncology Treatment, [place] [address] [place] [address] Nurse, Med 4 [address] [place] [address] Encounter for antineoplastic chemotherapy*; Metastasis to [...] mouth in the morning. 0 Active Pancrelipase (Jez-Hljl-Jdta) 11410-[address] UNIT Oral Capsule Delayed Release Particles (Creon 42984) 2 cap with meals, 1 with larger [...] -19) 10/16/2022 Coronary artery disease invo lving [place] coronary artery of [place] heart without angina pectoris 08/20/2022 Overview: Severe [...] lipids WNL Factor V+heteroqygous. 04/10 colon-Dr Case [facility] 2 polyps 1 tubular [...] WNL, antiphos lipids WNL Factor V+heteroqygous. FM QF-MFMB-QFCTC DIS NEC documented as of this encounter (statuses as of 02/11/2024) Immunizations Name Administration Dates Next Due COVID-19 mRNA, LNP-s, No Pre serve, 2-Dose Series (Chelaile) 01/13/2022,07/21/2021,02/01/2021,01/04 COVID-19, MRNA-LNP, 23-24, P F, 30 MCG/0.3 mL, 12 YRS AND ABOVE, IM ([employer]) 09/12/2023 Covid-19, Mrna, Lnp-s, Pf, B ivalent, 30 Mcg, IM, 12 yrs and above (Chelaile) 08/16/2022 HEP A - Hepatitis A (Adult [...] Nursing Notes * Krysten Valencia RN - 01/23/2024 4:44 PM EST Patient arrived today s/p 46 hours of 5FU infusion. Port flushed with NSS, blood return noted, and port locked with Heparin. Port needle removed. Patient left facility today in stable condition and denied further needs at this time. D/c completed by TRENT, RN. documented in this encounter Plan of Treatment Upcoming Encounters Date Type Department Care Team (Late st Contact Info) Description 02/17/2024 9:10 AM EDT Laboratory Laboratory [facility] [place] [address] [place], [place] [address] Rehana, Lab Scenery [address] [place], [place] [address] 02/18/2024 8:45 AM EDT [facility] 200 [facility], [place] [address] Rehana, Chair 7 Hem Onc Scenery [address] [place], [place] [address] 03/02/2024 9:10 AM EDT Laboratory Laboratory [facility] [place] [address] [place], [place] [address] Rehana, Lab Scenery [address] [place], [place] [address] 03/03/2024 10:30 AM EDT [facility] 200 [facility], [place] [address] Rehana, Chair 4 Hem Onc Scenery [address] [place], [place] [address] 03/16/2024 8:50 AM EDT Laboratory Laboratory [facility] [place] [address] [place], [place] [address] Rehana, Lab Scenery [address] [place], [place] [address] 03/17/2024 9:00 AM EDT Office Visit Hematology/Oncology [facility] [place] [address] [place], [place] [address] Amber Huizar CRNP [address] [place] [address] [place] [address] 03/17/2024 9:30 AM EDT [facility] 200 [facility], [place] [address] Rehana, Chair 8 Hem Onc [facility] 200 [facility] [place], [place] [address] 07/20/2024 10:15 AM EDT Office Visit Dermatology [facility] [address] [place] [address] Cal Jernigan MD 200 [facility] [place] [address] 07/21/2024 1:45 PM EDT Office Visit Hematology/Oncology [facility] [place] [address] [place] [address] Dakota Armando MD 200 [facility] [place] [address] 07/24/2024 11:40 AM EDT Office Visit Family Practice [facility] [place] [address] Sergio Barriga MD [address] [place] [address] Scheduled Procedures Name Priority Associated Diagnoses Date/Ti [...] this encounter Medical Devices Implanted Type Area Wheel Truer Device Identifier Shelf Expiration Date Model / Serial / Lot Duraclip 16mm Xlg Repostn - [id number] Implanted:Qty : 1 on 07/17/2021 by Guillermo Jones DO [place] [facility] [employer] [place] [id number] 01/10/2024 [id number] / / [id number] Stent Viabil Biliary [id number] - [id number] Implanted:Qty : 1 on 07/17/2021 by Guillermo Jones DO at [place] [facility] [employer] [place] [id number] 03/04/2024 [id number] / [id number] / [id number] Port Implant W/8f Poly Cath - [id number] Implanted:Qty : 1 on 09/13/2023 by Gary Rodriguez DO at OR [facility] Right: Chest CR BARD : PERIPHERAL VASCULAR [id number] 04/24/2025 [id number] / / [id number] documented as of this encounter Visit Diagnoses [...] PRN Other, IV Flush, Starting on Mar[place] 01/23/24 at 1242, Until [place] 01/23/24 at 2046, For 24 hours, Do not flush if lock, PICC, or central line not in place; IV infusing or unable to flush. Given 01/23/2024 12:42 PM EST 500 Units sodium chloride 0.9 % flush central line 10 mL 10 mL, IV Push, PRN Other, IV Flush, Starting on [place] 01/23/24 at 1242, Until [place] 01/23/24 at 2046, For 24 hours, Do not flush if lock, PICC, or central line not in place; IV infusing or unable to flush. Given 01/23/2024 12:42 PM EST 10 mL documented in this encounter Advance Directives Documents on File Type Date Recorded Patient Welfare Adviser Expl anation Advance Directives and Living Will [...] Agen t (per Health Care Power of Cash Posting Representative document) [email or web address] Temo Bela Sibling First Alternate Health Care Agent (per Health Care Power of Cash Posting Representative document) [email or web address] Care Teams Umbrella Repairer Relationship Specialty Start Date End Date Sergio Barriga MD [address] [place] [address] PCP - General Family Medicine 08/07/19 documented as of this encounter
--- OUTSIDE RECORDS SUMMARY | 2024-04-18 23:58 | External Medical Summary | Summary of Care ---
Author Name Unknown Organization [facility] Address [address] [place] [address] Phone [phone] Care Team Providers Care Methane Gas Collection System Operator Name Role Phone Sergio Barriga MD Primary Care Provider + Reason for Visit * Reason Comments Chemotherapy C8D1 Folfirinox * Episode Based Medications (Routine) - Authorized Specialty Diagnoses / Procedures Referred By Linda hu Referred To Contact Diagnoses Encounter for antineoplastic chemotherapy 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) 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) Procedures CO LEUCOVORIN CALCIUM INJECTION CO FLUOROURACIL INJECTION CO IRINOTECAN INJECTION CO OXALIPLATIN CO FOSAPREPITANT INJECTION BEVACIZUMAB-BVZR, BIOSIMILAR, 10 MG (ZIRABEV), IV CO INJECTION, UDENYCA 0.5 MG Dakota Armando MD [address] [place], [place] [address] Anc Hem/Onc [facility] DEPT CLOSED - 10/08/23 [address] [place] [address] Referral ID Status Reason Start Date Expiration Date V isits Requested Visits Authorized [id number] Authorized 08/30/2023 11/24/2099 999 [id number] Encounter Details Date Type Department Care Team (Latest Contact Info) Description 01/21/2024 9:15 AM EST Hem/Onc Treatment Hematology/Oncolog y Treatment, [place] [address] [place] [address] Rehana, Chair 8 Hem Onc Scenery [address] [place] [address] Encounter for antineoplastic chemotherapy*; Metastasis to liver [...] mouth in the morning. 0 Active Pancrelipase (Xko-Jdmc-Bvpv) 96743-[address] UNIT Oral Capsule Delayed Release Particles (Creon 43038) 2 cap with meals, 1 with larger [...] -19) 10/16/2022 Coronary artery disease invo lving [place] coronary artery of [place] heart without angina pectoris 08/20/2022 Overview: Severe [...] [facility] 2 polyps 1 tubular adenoma. Kevin 6y 2013 sleep study [facility] WNL [...] WNL, antiphos lipids WNL Factor V+heteroqygous. FM [id number]-ZVOW-AGYTS DIS NEC documented as of this encounter (statuses as of 02/10/2024) Immunizations Name Administration Dates Next Due COVID-19 mRNA, LNP-s, No Pre serve, 2-Dose Series (FIA Formula E) 01/13/2022,07/21/2021,02/01/2021,01/04 COVID-19, MRNA-LNP, 23-24, P F, 30 MCG/0.3 mL, 12 YRS AND ABOVE, IM ([facility] 09/12/2023 Covid-19, Mrna, Lnp-s, Pf, B ivalent, 30 Mcg, IM, 12 yrs and above (FIA Formula E) 08/16/2022 HEP A - Hepatitis A (Adult [...] 02/17/2024 9:10 AM EDT Laboratory Laboratory [facility] [place] [address] [place] [id number] Rehana, Lab Scenery [address] [place], [place] [address] 02/18/2024 8:45 AM EDT Hem/Onc Treatment [facility] [place] [facility] [address] Rehana, Chair 7 Hem Onc Scenery [address] [place] [address] 03/02/2024 9:10 AM EDT Laboratory Laboratory [facility] [place] [address] [place] [address] Rehana, Lab Scenery [address] [facility] [place], [place] [address] 03/03/2024 10:30 AM EDT Hem/Onc Treatment Hematology/Oncology Treatment, [place] [address] [facility] [place] [address] Rehana, Chair 4 Hem Onc Scenery [address] [place], [place] [address] 03/16/2024 8:50 AM EDT Laboratory Laboratory [facility] [place] [address] [place] [address] Rehana, Lab Scenery [address] [facility] [place], [place] [address] 03/17/2024 9:00 AM EDT Office Visit Hematology/Oncology [facility] [place] [address] [place] [phone] Amber Huizar CRNP [address] [facility] [place] [address] 03/17/2024 9:30 AM EDT Hem/Onc Treatment Hematology/Oncology Treatment, [place] [address] [facility] [address] [place] [phone] Rehana, Chair 8 Hem Onc [address] [place] [address] 07/20/2024 10:15 AM EDT Office Visit Dermatology [facility] [place] [address] [facility] [place] [address] Cal Jernigan MD [address] [facility] [place] [address] 07/21/2024 1:45 PM EDT Office Visit Hematology/Oncology [facility] [place] [address] [facility] [place] [phone] Dakota Armando MD [address] [facility] [place] [address] 07/24/2024 11:40 AM EDT Office Visit Family Practice [facility] [address] [facility] [place] [address] Sergio Barriga MD [address] [facility] [place] [address] Scheduled Procedures Name Priority Associated Diagnoses Date/Ti [...] this encounter Medical Devices Implanted Type Area Marine Cargo Surveyor Device Identifier Shelf Expiration Date Model / Serial / Lot Duraclip 16mm Xlg Repostn - [id number] Implanted:Qty : 1 on 07/17/2021 by Guillermo Jones DO at [facility] [place] [employer] [place] [id number] 01/10/2024 [id number] / / [id number] Stent Viabil Biliary 24hyp7su - [id number] Implanted:Qty : 1 on 07/17/2021 by Guillermo Jones DO at [facility] [place] [employer] [place] [id number] 03/04/2024 [id number] / [id number] / [id number] Port Implant W/8f Poly Cath - [id number] Implanted:Qty : 1 on 09/13/2023 by Gary Rodriguez DO at OR [facility] Right: Chest CR BARD : PERIPHERAL VASCULAR [id number] 04/24/2025 [id number] / / [id number] documented as of this encounter Visit Diagnoses [...] Documents on File Type Date Recorded Patient Graphic Coordinator Expl anation Advance Directives and Living [...] Agen t (per Health Care Power of Viscose Cellar Charge Hand document) [email or web address] Temo Bela Sibling First Alternate Health Care Agent (per Health Care Power of Viscose Cellar Charge Hand document) [email or web address] Care Teams Methane Gas Collection System Operator Relationship Specialty Start Date End Date Sergio Barriga MD [address] [place] [address] PCP - General Family Medicine 08/07/19 documented as of this encounter
--- OUTSIDE RECORDS SUMMARY | 2024-04-18 23:58 | External Medical Summary ---
Author Name Unknown Address Unknown Organization K09[facility] [place] [address] Laboratory Report Ordering Provider Test Date Status JOSE ROY 02/03/2024 09:28:56 Final Observation Date Value Abnormality Reference (Units ) Status SYNC LEUKOCYTES IN BLOOD BY AUTOMATED COUNT 02/03/2024 09:28:56 12.78 Above high normal 4.00-10.80 (K/uL) Final Segs 02/03/2024 09:28:56 73.6 40.0-75.0 (%) Final Lymphs % 02/03/2024 09:28:56 14.4 Below low normal 18.0-42.0 (%) Final Monos 02/03/2024 09:28:56 9.7 1.0-11.0 (%) Final Eosinophils 02/03/2024 09:28:56 1.8 0.0-6.0 (%) Final Basos 02/03/2024 09:28:56 0.5 0.0-2.0 (%) Final Absolute Segs 02/03/2024 09:28:56 9.40 Above high normal 1.80-7.70 (K/uL) Final Lymphs, absolute 02/03/2024 09:28:56 1.84 1.00-4.80 (K/ul) Final Monos, Abs 02/03/2024 09:28:56 1.24 Above high normal 0.00-1.10 (K/uL) Final Eos, Abs 02/03/2024 09:28:56 0.23 0.00-0.70 (K/uL) Final Basos, Abs 02/03/2024 09:28:56 0.07 0.00-0.20 (K/uL) Final Performing Location [facility] [place] [address]
--- OUTSIDE RECORDS SUMMARY | 2024-04-18 23:59 | External Medical Summary | Summary of Care ---
Author Name Unknown Organization [facility] Address [address] [place] [address] Phone [phone] Care Team Providers Care Engineer Systems Name Role Phone Sergio Barriga MD Primary Care Provider + Reason for Referral * Precert (Within 10 days (routine)) - Pending Review Specialty Diagnoses / Procedures Referred By Linda hu Referred To Contact Radiology Diagnoses 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) Procedures CT CHEST/ABDOMEN/PELVIS WITH IV CONTRAST WITH ORAL CONTRAST Dakota Armando MD [address] [place] [id number] Referral ID Status Reason Start Date Expiration Date V isits Requested Visits Authorized [id number] Pending Review 12/17/2023 999 999 Reason for Visit * Reason Comments Re-Check Chemo recheck Encounter Details Date Type Department Care Team (Late st Contact Info) Description 12/17/2023 8:45 AM EST Office Visit Hematology/Oncology [facility] [address] [place] [address] [phone] Dakota Armando MD [address] [place] [id number] 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)*; 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) Allergies Active Allergy Reactions Criticality Noted Date Comments Lisinopril Cough Low 08/07/2019 documented as of this encounter (statuses as of 01/29/2024) Medications Medication Sig Dispensed Refills Start Date End Date Status Boost 100 Calorie Smart Oral Liquid Take by mouth. 0 Active Multi Vitamin Daily Oral Tablet Take by mouth. 0 Active Aspirin 81 MG Oral Tablet Delayed Release Take 1 Tablet by mouth in the morning. 0 Active Pancrelipase (Wms-Rqrb-Vubw) 90077-35436 UNIT Oral Capsule Delayed Release Particles (Creon 68217) 2 cap with meals, 1 with larger [...] TABLET BY MOUTH AT BEDTIME 90 Tablet 2 04/08/2023 4 Discontinued ALPRAZolam 1 MG Oral Tablet (xaNAX)Indicati ons:Chronic insomnia TAKE ONE TABLET BY MOUTH AT BEDTIME NEEDED FOR SLEEP 30 Tablet 0 11/22/2023 4 Discontinued documented as of this encounter (statuses as of 01/29/2024) Active Problems Problem Noted Date Diagnosed Date [...] as of this encounter (statuses as of 01/29/2024) Resolved Problems Problem Noted Date Diagnosed Date [...] WNL, antiphos lipids WNL Factor V+heteroqygous. FM TU-AUSC-YIHIO DIS NEC documented as of this encounter (statuses as of 01/29/2024) Immunizations Name Administration Dates Next Due COVID-19 mRNA, LNP-s, No Pre serve, 2-Dose Series (Electron Database) 01/13/2022,07/21/2021,02/01/2021,12/26 COVID-19, MRNA-LNP, 23-24, P F, 30 MCG/0.3 mL, 12 YRS AND ABOVE, IM ([employer]) 09/12/2023 Covid-19, Mrna, Lnp-s, Pf, B ivalent, 30 Mcg, IM, 12 yrs and above (Electron Database) 08/16/2022 HEP A - Hepatitis A (Adult [...] Sign Reading Time Taken Comments Blood Pressure 127/78 12/17/2023 8:16 AM EST Pulse 84 12/17/2023 8:16 AM EST Temperature 36.3 C (97.3 F) 12/17/2023 8:16 AM ES T Respiratory Rate 18 12/17/2023 8:16 AM EST Oxygen Saturation 98% 12/17/2023 8:16 AM EST Inhaled Oxygen Concentration - - Weight 61.1 kg (134 lb 11.2 oz) 12/17/2023 8:16 AM EST Height - - Body Mass Index 19.89 12/02/2023 2:17 PM EST documented in this [...] Progress Notes * Dakota Armando MD - 01/29/2024 4:26 PM EST He is at high risk for febrile neutropenia. He receives prophylactic Pegfilgrastim to prevent febrile neutropenia while on chemotherapy. * Dakota Armando MD - 12/17/2023 8:45 AM EST Hematology/Oncology Outpatient Clinic note Angie Olguin [place] [address] [facility] [place] [address] Name: Rafael Cramer Date: 11/04/2023 CHIEF COMPLAINT: [...] by Dr. Mike Westbrook on 08/07/2021 at [facility]. -He completed gemcitabine and Xeloda combination between 08/2021- 01/2022. CURRENT TREATMENT: mFOLFIRINOX every 14 days (09/17/23 - ) -Udenyca support D4 DIAGNOSTIC WORKUP: He was noticed to have [...] by Dr. Mike Westbrook on 08/07/2021 at [facility]. Final pathology: -invasive poorly differentiated pancreatic adenocarcinoma with focal squamous differentiation, 2.5 cm, -overall negative margin -perineural and lymphovascular invasion noted -01/17 lymph nodes positive for metastatic disease. -T2 [...] throughout the right lung, increased as compared to the prior exam, nonspecific, may represent infection or an inflammatory process. Consider continued surveillance. 2. The previously seen small pulmonary nodules [...] received 2nd opinion from medical oncologist from [facility] who agreed with treatment plan. Also recommending after 12 treatments with FOLFIRINOX, he may consider the clinical trial of G12C inhibitor. He will need port for upcoming chemotherapy Would like to send the NGS checkup on the liver biopsy specimen ( done at [facility]). Component Latest Ref Rng 09/30/2023 CA 19-9 <35.0 U/mL 437.1 (H) HISTORY OF PRESENT ILLNESS: He has come the clinic for the follow-up, accompanied by his in the office. He says that the he is feeling better, following last treatment, did not have significant diarrhea,lasted for about 1 day only, he also had increasing coughing which has improved, currently not on any antibiotic treatment, no increasing nausea, no vomiting, weight has [...] Chronic insomnia 05/18/2019 Coronary artery disease involving stillaguamish coronary artery of stillaguamish heart without angina pectoris 08/20/2022 Severe noted [...] Bilateral Dr Mix COLONOSCOPY 04/02/[address] [facility] 2 polyps 1 tubular adenoma. COLONOSCOPY, DIAGNOSTIC (RECTUM) 09/14/2022 diverticulosis, fair prep, repeat 1 yr / [facility] COLORECTAL CANCER SCREEN;/2006 EGD, FLEXIBLE,W/ENDOSCOPIC US 07/12/2021 pancreatic mass, GB sludge, CBD dilation, abnormal lymph nodes / [facility] EGD, W/ENDOSCOPIC US N/A 07/17/2021 ESOPHAGOGASTRODUODENOSCOPY (EGD), FLEXIBLE, TRANSORAL, ENDOSCOPIC ULTRASOUND performed by Guillermo Jones DO at ENDOSCOPY [facility] ERCP 07/12/2021 ERCP, DIAGNOSTIC, SPECIMEN COLLECTION N/A 07/17/2021 ENDOSCOPIC RETROGRADE CHOLANGIOPANCREATOGRAPHY (ERCP) DIAGNOSTIC performed by Guillermo Jones DO at[facility]OSCOPY [facility] INSER TUNN ACC DEV;5 YRS/OLDER Right 09/13/2023 INSERT TUNNELED CENTRAL VENOUS ACCESS WITH SUBQ PORT performed by Gary Rodriguez DO at OR [facility] IR BIOPSY 08/21/2023 KNEE ARTHROSCOPY/DEBRIDEMENT Left 07/12/[address] Zhu left partial medical meniscectomy & chondroplasty. REMOVE PANCREAS, PARTIAL (WHIPPLE) 08/07/2021 [facility]. Robot assisted. Dr Mike Westbrook. REMOVE TONSILS & ADENOIDS, UNDER 12 Tonsillectomy/Adenoids,<12 Y/O SHOULDER ARTHROSCOPY/DEBRIDEMENT Left 08/31/2014 Dr Zhu +biceps tenotomy debride labrum, subacromial decompression & distal clavicle excision. 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 Tobacco Use Smoking status: Never Smokeless tobacco: Never Vaping Use Vaping Use: Never used Substance and Sexual Activity Alcohol use: Yes Comment: 4 drinks/ day had stopped /2020, now rare. Drug use: Yes Frequency: 5.0 times per week Types: Marijuana Comment: oral caps. for appetite, relaxation. Sexual activity: Yes Partners: Female Comment: . 2 stepchildren. [facility] & [place]. no grandkids Other Topics Concern Not on file Social History Narrative Likes gardening. Cabin in [facility]. Likes to weights, walking. Active [place] [employer]. 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 Social Determinants [...] Tablet by mouth in the morning. Pancrelipase (Fqn-Upmz-Azzv) [id number] UNIT Oral Capsule Delayed Release Particles (Creon 07163) 2 cap with meals, 1 with larger snack. (up to 8/day) 240 Capsule 11 Continuation of patient use of medical marijuana is approved Inhale 1 Capsule by mouth as needed. traZODone HCl 100 MG Oral Tablet (Desyrel) TAKE 1 TABLET BY MOUTH AT BEDTIME 90 Tablet 2 Pantoprazole Sodium 40 MG Oral Tablet Delayed Release (Protonix) TAKE 1 TABLET BY MOUTH EVERY MORNING 90 Tablet 3 Lidocaine-Prilocaine 2.5-2.5 % External Cream (Emla) APPLY TO SKIN OVER MEDIPORT & COVER 1HR PRIOR TO ACCESSING. 30 g 1 Ondansetron HCl 8 MG [...] BY MOUTH EVERY MORNING 90 Tablet 2 ALPRAZolam 1 MG Oral Tablet (xaNAX) TAKE ONE TABLET BY MOUTH AT BEDTIME NEEDED FOR SLEEP 30 Tablet 0 No current facility-administered medications for this visit. REVIEW OF SYSTEMS: See HPI - otherwise negative OBJECTIVE: BP 127/78 (BP Site: Left Arm, BP Position: Sitting, BP Cuff Size: Regular) | Pulse 84 | Temp 36.3 C (97.3 F) (Tympanic) | Resp 18 | Wt 61.1 kg (134 lb 11.2 oz) | SpO2 98% | BMI 19.89 kg/m | BSA 1.72 m PHYSICAL EXAM: [...] noted Neurologic: Normal - Grossly intact LABS: I reviewed his blood workup done on 12/09/2023: -WBC 7600, H&H of 11/36, Platelet count 140389 -BUN/Creat: 16/1.0, Calcium 9.3, normal LFT. 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 IMPRESSION/PLAN: Metastatic Pancreatic Adenocarcinoma Liver metastasis. Currently [...] stable. I reviewed his blood workup done last week when he received 5th cycle of chemotherapy, overall stable blood workup noted. CA 19-9 level has gone up. Reviewed with him regarding the latest CT scan of chest, abdomen pelvis done in early November of 2023. I am planning for another follow-up CT scan of chest, abdomen pelvis in early January of 2024. His previous CT scan was done at [facility], he will bring copy for the comparison. Will see him in the clinic after the CT scan is done. We talked about overall treatment goal which would be palliative and not curative. Dr. Dakota Armando Hem/Onc (This note was completed using the dictation program Fluency Direct. As such, there may be misspellings word substitutions, or other variations that should not change the essence of the clinical content of this encounter note. If there is need for further clarification, please direct questions to the provider listed above.) documented in this encounter Nursing Notes * Nereyda Xiao LPN - 12/17/2023 8:18 AM EST Patient identifed by name and birthdate Do you have any concerns about pain management for today's visit? No Living Will or Advance Directive for Health Care as noted on the problem list. [facility] is a way you can talk to your provider on line through e-mail. Would you like to sign up? I can activate it for you? NO Filed Vitals: 12/17/23 0816 BP: 127/78 Pulse: 84 Resp: 18 Temp: 36.3 C (97.3 F) TempSrc: Tympanic SpO2: 98% Weight: 61.1 kg (134 lb 11.2 oz) Patient was instructed to not get [...] Description 02/03/2024 9:20 AM EDT Laboratory Laboratory [facility] [place] [address] [facility] [address] [id number] [place], Lab [facility] [address] [facility] [address] [id number] 02/04/2024 8:45 AM EDT Office Visit Hematology/Oncology [facility] [place] [address] [address] [phone] Dakota Armando MD [address] [facility] [address] [address] 02/04/2024 9:15 AM EDT Hem/Onc Treatment Hematology/Oncology Treatment, [place] [address] [phone] [address], [address] 10 Hem Onc [facility] [address] [address] [address] 07/20/2024 10:15 AM EDT Office Visit Dermatology [facility] [address] [facility] [place] [address] Cal Jernigan MD [address] [facility] [place] [address] 07/21/2024 1:45 PM EDT Office Visit Hematology/Oncology [facility] [address] [facility] [place] [phone] Dakota Armando MD [address] [facility] [place], [place] [address] 07/24/2024 11:40 AM EDT Office Visit Family Practice [facility] [address] [place] [address] Sergio Barriga MD [address] [facility] [place] [address] Scheduled Procedures Name Priority Associated Diagnoses Date/Ti [...] this encounter Medical Devices Implanted Type Area Consumer Electronic Retail Specialist Device Identifier Shelf Expiration Date Model / Serial / Lot Duraclip 16mm Xlg Repostn - [id number] Implanted:Qty : 1 on 07/17/2021 by Guillermo Jones DO at ENDOSCOPY [facility] [address] [employer] [id number] 01/10/2024 [id number] / / [id number] Stent Viabil Biliary [id number] - [id number] Implanted:Qty : 1 on 07/17/2021 by Guillermo Jones DO at ENDOSCOPY [facility] [address] [employer] [id number] 03/04/2024 [id number] / [id number] / [id number] Port Implant W/8f Poly Cath - [id number] Implanted:Qty : 1 on 09/13/2023 by Gary Rodriguez DO at OR [facility] Right: Chest CR BARD : PERIPHERAL VASCULAR [id number] 04/24/2025 [id number] / / [id number] documented as of this encounter Results * CT CHEST/ABDOMEN/PELVIS WITH IV CONTRAST WITH ORAL CONTRAST (01/27/2024 12:36 PM EST) Anatomical Region Laterality Modality Body, Chest, Abdomen, Pelvis, Cardio Computed Tomography 01/28/2024 9:05 AM EST Addenda Addendum by Valerie Dodd MD on 01/28/2024 10:28 AM EST ADDENDUM: Upon submission of outside images dated 11/28/2023, the following changes have been made to the report. As compared to prior CT dated [...] be excluded. Recommend PET-CT for further evaluation. Impressions 01/28/2024 9:03 AM EST IMPRESSION: 1. Increased ground-glass opacities within the [...] in place. 4. Redemonstration of subcentimeter retroperitoneal, and mesenteric lymph nodes, stable from it 07/24/2023. This exam was submitted to the radiology messenger office worklist and the ordering provider will be notified that the final report is available in EPIC. Narrative 01/28/2024 9:03 AM EST EXAM: EXAM: CT CHEST/ABDOMEN/PELVIS WITH IV CONTRAST WITH ORAL CONTRAST DATE TIME: 01/27/2024 - 01/27/2024 12:36 pm HISTORY: 73 y/o M Pancreatic cancer, S/P Whipple's procedure, recurrent disease involving the liver. On chemotherapy. TECHNIQUE: CT of the Chest, Abdomen and Pelvis was performed with intravenous contrast. Positive oral contrast was administered. COMPARISON: CT abdomen and pelvis dated 07/24/2023 FINDINGS: CHEST: LUNGS AND LARGE AIRWAYS: Increased ground-glass opacities within the right upper lobe right middle lobe and right lower lobe with new nodular consolidative opacities (series 2, image 30, 37 and 47). Stable 3 mm left upper lobe nodule and punctate left lower lobe nodule. PLEURA: No pleural effusion. VESSELS: Normal caliber thoracic aorta and main pulmonary artery. Atherosclerotic changes of the aorta. Coronary artery calcifications. HEART: Heart is normal in size. No pericardial effusion. MEDIASTINUM AND HAWA: Redemonstration of an enlarged right hilar lymph nodes. A reference right hilar lymph node measures 1.3 cm (series 14, image 150), unchanged. No enlarged mediastinal lymph nodes. Mild diffuse esophageal wall thickening may be secondary to esophagitis. CHEST WALL AND LOWER NECK: Right chest wall MediPort tip terminates within the right atrium. No lytic or blastic lesions. ABDOMEN AND PELVIS: LIVER: Interval slight increase in size segment 6 ill-defined hypodense lesion which now measures 2.0 x 1.9 cm (series 14, image 351), previously 1.8 x 1.5 cm. No new hepatic lesion. BILE DUCTS: Biliary stent is again noted and unchanged in position. GALLBLADDER: Status post cholecystectomy. SPLEEN: Within normal limits. PANCREAS: Within normal limits. ADRENALS: Within normal limits. KIDNEYS/URETERS: Within normal limits. BLADDER: Within normal limits. REPRODUCTIVE ORGANS: Prostate is enlarged. BOWEL: Status post Whipple. PERITONEUM: No ascites. VESSELS: Atherosclerotic changes. No abdominal aortic aneurysm. Patent portal vein, splenic vein and SMV. RETROPERITONEUM: Redemonstration of subcentimeter retroperitoneal, and mesenteric lymph nodes, stable from it 07/24/2023. ABDOMINAL WALL: Within normal limits. BONES: Degenerative changes of the spine. No lytic or blastic lesions. Procedure Note Valerie Dodd MD - 01/28/2024 EXAM: EXAM: CT CHEST/ABDOMEN/PELVIS WITH IV CONTRAST WITH ORAL CONTRAST DATE TIME: 01/27/2024 - 01/27/2024 12:36 pm HISTORY: 73 y/o M Pancreatic cancer, S/P Whipple's procedure, recurrent diseaseinvolving the liver. On chemotherapy. TECHNIQUE: CT of the Chest, Abdomen and Pelvis was performed with intravenouscontrast. Positive oral contrast was administered. COMPARISON: CT abdomen and pelvis dated 07/24/2023 FINDINGS: CHEST: LUNGS AND LARGE AIRWAYS: Increased ground-glass opacities within the rightupper lobe right middle lobe and right lower lobe with new nodularconsolidative opacities (series 2, image 30, 37 and 47). Stable 3 mm leftupper lobe nodule and punctate left lower lobe nodule. PLEURA: No pleural effusion. VESSELS: Normal caliber thoracic aorta and main pulmonary artery.Atherosclerotic changes of the aorta. Coronary artery calcifications. HEART: Heart is normal in size. No pericardial effusion. MEDIASTINUM AND HAWA: Redemonstration of an enlarged right hilar lymphnodes. A reference right hilar lymph node measures 1.3 cm (series 14,image 150), unchanged. No enlarged mediastinal lymph nodes. Mild diffuseesophageal wall thickening may be secondary to esophagitis. CHEST WALL AND LOWER NECK: Right chest wall MediPort tip terminates withinthe right atrium. No lytic or blastic lesions. ABDOMEN AND PELVIS: LIVER: Interval slight increase in size segment 6 ill-defined hypodenselesion which now measures 2.0 x 1.9 cm (series 14, image 351), previously1.8 x 1.5 cm. No new hepatic lesion. BILE DUCTS: Biliary stent is again noted and unchanged in position. GALLBLADDER: Status post cholecystectomy. SPLEEN: Within normal limits. PANCREAS: Within normal limits. ADRENALS: Within normal limits. KIDNEYS/URETERS: Within normal limits. BLADDER: Within normal limits. REPRODUCTIVE ORGANS: Prostate is enlarged. BOWEL: Status post Whipple. PERITONEUM: No ascites. VESSELS: Atherosclerotic changes. No abdominal aortic aneurysm. Patentportal vein, splenic vein and SMV. RETROPERITONEUM: Redemonstration of subcentimeter retroperitoneal, andmesenteric lymph nodes, stable from it 07/24/2023. ABDOMINAL WALL: Within normal limits. BONES: Degenerative changes of the spine. No lytic or blastic lesions. IMPRESSION IMPRESSION: 1. Increased ground-glass opacities within the right upper lobe rightmiddle lobe and right lower lobe with new nodular consolidative opacities.Findings are concerning for multifocal pneumonia, however metastaticdisease cannot be entirely excluded. Follow-up to resolution with CT ofthe chest in 1 month is recommended. 2. Interval slight increase in size segment 6 ill-defined hypodense lesionwhich now measures 2.0 x 1.9 cm, previously 1.8 x 1.5 cm. No new hepaticlesion. 3. Status post Whipple with biliary stent in place. 4. Redemonstration of subcentimeter retroperitoneal, and mesenteric lymphnodes, stable from it 07/24/2023. This exam was submitted to the radiology messenger office worklist and theordering provider will be notified that the final report is available inEPIC. Dakota Armando MD RAD CT documented in this encounter Visit Diagnoses Diagnosis [...] Documents on File Type Date Recorded Patient Audio Visual Coordinator Expl anation Advance Directives and Living [...] Agen t (per Health Care Power of [employer] document) [email or web address] Temo Cramer Sibling First Alternate Health Care Agent (per Health Care Power of [employer] document) [email or web address] Care Teams Engineer Systems Relationship Specialty Start Date End Date Sergio Barriga MD [address] [address] PCP - General Family Medicine 08/07/19 documented as of this encounter"
--- OUTSIDE RECORDS SUMMARY | 2024-04-18 23:59 | External Medical Summary | Summary of Care ---
Author Name Unknown Organization [facility] Address [address] [place] [address] Phone [phone] Care Team Providers Care Pecan Picker Name Role Phone Sergio Barriga MD Primary Care Provider + Encounter Details Date Type Department Care Team (Late st Contact Info) Description 01/20/2024 Orders Only [facility] [address] [place] [address] Dakota Armando MD [address] [facility] [place], [place] [address] Allergies Active Allergy Reactions Criticality Noted Date Comments Lisinopril Cough Low 08/07/2019 documented as of this encounter (statuses as of 01/20/2024) Medications Medication Sig Dispensed Refills Start Date End Date Status Boost 100 Calorie Smart Oral Liquid Take by mouth. 0 Act miley Multi Vitamin Daily Oral Tablet Take by mouth. 0 Act miley Aspirin 81 MG Oral Tablet Delayed Release Take 1 Tablet by mouth in the morning. 0 Active Pancrelipase (Dab-Hdfd-Okpi) 36896-72098 UNIT Oral Capsule Delayed Release Particles (Creon 22282) 2 cap with meals, 1 with larger [...] 138 mL infusion 4300 mg IV CONTINUOUS 01/20/2024 01/22/2024 Active documented as of this encounter (statuses as of 01/20/2024) Active Problems Problem Noted Date Diagnosed Date Malignant neoplasm of body of pancreas 3 Metastasis to liver 08/30/2023 Encounter for antineoplastic chemotherapy 2022 History of carcinoma of pancreas 07/18/2023 Post-viral cough syndrome 07/09/2023 Upper airway cough syndrome 07/09/2023 History of 2019 novel coronavirus disease (COVID -19) 10/16/2022 Coronary artery disease invo lving [place] coronary artery of [place] heart without angina pectoris 08/20/2022 Overview: Severe [...] WNL Factor V+heteroqygous. 04/10 colon-Dr Eller [facility] 2 polyps 1 tubular adenoma. Kevin 6y [address] [facility] WNL [address] [facility] Essential hypertension with goal blood pressure [...] as of this encounter (statuses as of 01/20/2024) Resolved Problems Problem Noted Date Diagnosed Date [...] WNL, antiphos lipids WNL Factor V+heteroqygous. FM PP-DBUA-VRQIQ DIS NEC documented as of this encounter (statuses as of 01/20/2024) Immunizations Name Administration Dates Next Due COVID-19 mRNA, LNP-s, No Pre serve, 2-Dose Series ([employer]) 01/13/2022,07/21/2021,02/01/2021,01/04 COVID-19, MRNA-LNP, 23-24, P F, 30 MCG/0.3 mL, 12 YRS AND ABOVE, IM ([employer]) 09/12/2023 Covid-19, Mrna, Lnp-s, Pf, B ivalent, 30 Mcg, IM, 12 yrs and above ([employer]) 08/16/2022 HEP A - Hepatitis A (Adult [...] AM EST Hem/Onc Treatment Hematology/Oncolog y Treatment, [place] [address] [place] [phone] Park, Chair 8 Hem Onc [place] [address] [address] [place] [address] Encounter for antineoplastic chemotherapy*; 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); 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) 01/27/2024 11:00 AM EST Imaging Radiology [address], [place] [facility] [address] 02/04/2024 8:45 AM EDT Office Visit Hematology/Oncolog y [facility] [place] [address] [place] [phone] Dakota Armando MD 200 [facility] [place] [address] 07/20/2024 10:15 AM EDT Office Visit Dermatology [facility] Rehana [place] [address] [place] [address] Cal Jernigan MD 200 [facility] [place] [address] 07/21/2024 1:45 PM EDT Office Visit Hematology/Oncolog y [facility] [place] [address] [place] [phone] Dakota Armando MD [address] [place] [address] 07/24/2024 11:40 AM EDT Office Visit Family Practice [facility] [address] [place] [address] Sergio Barriga MD [address] [place] [address] Scheduled Procedures Name Priority Associated Diagnoses Date/Ti [...] this encounter Medical Devices Implanted Type Area Media Buyer Device Identifier Shelf Expiration Date Model / Serial / Lot Duraclip 16mm Xlg Repostn - [id number] Implanted:Qty : 1 on 07/17/2021 by Guillermo Jones DO at ENDOSCOPY [facility] [employer] [id number] 01/10/2024 [id number] / / [id number] Stent Viabil Biliary [id number] - [id number] Implanted:Qty : 1 on 07/17/2021 by Guillermo Jones DO at ENDOSCOPY [facility] [employer] [id number] 03/04/2024 [id number] / [id number] / [id number] Port Implant W/8f Poly Cath - [id number] Implanted:Qty : 1 on 09/13/2023 by Gary Rodriguez DO at OR [facility] Right: Chest CR BARD : PERIPHERAL VASCULAR [id number] 04/24/2025 [id number] / / [id number] documented as of this encounter Advance Directives Documents on File Type Date Recorded Patient Nanny/Household Manager Expl anation Advance Directives and Living [...] Agen t (per Health Care Power of Cooking Casing And Drying Supervisor document) [email or web address] Temo Cramer Sibling First Alternate Health Care Agent (per Health Care Power of Cooking Casing And Drying Supervisor document) [email or web address] Care Teams Pecan Picker Relationship Specialty Start Date End Date Sergio Barriga MD [address] [place] [address] PCP - General Family Medicine 08/07/19 documented as of this encounter
--- OUTSIDE RECORDS SUMMARY | 2024-04-18 23:59 | External Medical Summary | Summary of Care ---
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) Procedures NV LEUCOVORIN CALCIUM INJECTION NV FLUOROURACIL INJECTION NV IRINOTECAN INJECTION NV OXALIPLATIN NV FOSAPREPITANT INJECTION BEVACIZUMAB-BVZR, BIOSIMILAR, 10 MG (ZIRABEV), IV NV INJECTION, UDENYCA 0.5 MG Dakota Armando MD [address] [place], [place] [address] Anc Hem/Onc [facility] DEPT CLOSED - 10/08/23 [address] [place] [address] Referral ID Status Reason Start Date Expiration Date V isits Requested Visits Authorized [id number] Authorized 08/30/2023 11/24/2099 999 99 Encounter Details Date Type Department Care Team (Latest Contact Info) Description 01/23/2024 12:15 PM EST Immunization/ Injection Hematology/Oncology Treatment, [place] [address] [place] [address] Nurse, Med 4 [address] [place] [address] Encounter for antineoplastic chemotherapy*; 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); 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) Allergies Active Allergy Reactions Criticality Noted Date Comments Lisinopril Cough Low 08/07/2019 documented as of this encounter (statuses as of 01/23/2024) Medications Medication Sig Dispensed Refills Start Date End Date Status Boost 100 Calorie Smart Oral Liquid Take by mouth. 0 Act miley Multi Vitamin Daily Oral Tablet Take by mouth. 0 Act miley Aspirin 81 MG Oral Tablet Delayed Release Take 1 Tablet by mouth in the morning. 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 FM KT-UIXX-XHLLC DIS NEC documented as of this encounter (statuses as of 01/23/2024) Immunizations Name Administration Dates Next Due COVID-19 mRNA, LNP-s, No Pre serve, 2-Dose Series ([employer]) 01/13/2022,07/21/2021,02/01/2021,01/04 COVID-19, MRNA-LNP, 23-24, P F, 30 MCG/0.3 mL, 12 YRS AND ABOVE, IM ([employer]) 09/12/2023 Covid-19, Mrna, Lnp-s, Pf, B ivalent, 30 Mcg, IM, 12 yrs and above ([employer]) 08/16/2022 HEP A - Hepatitis A (Adult [...] Care Team (Late st Contact Info) Description 01/24/2024 12:15 PM EST Immunization/Injectio n Hematology/Oncology Treatment, [place] [address] [facility], [place] [phone] Nurse, Med 4 [address] [place], [place] [address] 01/27/2024 11:00 AM EST Imaging Radiology [address], [place] [address] [facility] [place] [address] 02/03/2024 9:20 AM EDT Laboratory Laboratory [facility] [address] [place], [place] [phone] Rehana, Lab [facility] [address] [place], [place] [address] 02/04/2024 8:45 AM EDT Office Visit Hematology/Oncology [facility] [address] [place], [place] [phone] Dakota Armando MD [address] [place], [place] [address] 02/04/2024 9:15 AM EDT Hem/Onc Treatment Hematology/Oncology Treatment, [place] [address] [facility], [place] [phone] Rehana, Chair 10 Hem Onc [place] [address] [address] [place], [place] [address] 07/20/2024 10:15 AM EDT Office Visit Dermatology [facility] [place] [address] [place], [place] [address] Cal Jernigan MD [address] [place], [place] [address] 07/21/2024 1:45 PM EDT Office Visit Hematology/Oncology [facility] [place] [address] [place], [place] [phone] Dakota Armando MD [address] [place], [place] [address] 07/24/2024 11:40 AM EDT Office Visit Family [facility] [address] [place] [address] Sergio Barriga MD [address] [place] [address] Scheduled Procedures Name Priority Associated Diagnoses Date/Ti [...] this encounter Medical Devices Implanted Type Area Litigation Legal Secretary Device Identifier Shelf Expiration Date Model / Serial / Lot Duraclip 16mm Xlg Repostn - [id number] Implanted:Qty : 1 on 07/17/2021 by Guillermo Jones DO at ENDOSCOPY [facility] [employer] REY[place]O [id number] 01/10/2024 [id number] / / [id number] Stent Viabil Biliary [id number] - [id number] Implanted:Qty : 1 on 07/17/2021 by Guillermo Jones DO at ENDOSCOPY [facility] [employer] [place] [id number] 03/04/2024 [id number] / [id number] / [id number] Port Implant W/8f Poly Cath - [id number] Implanted:Qty : 1 on 09/13/2023 by Gary Rodriguez DO at OR [facility] Right: Chest CR BARD : PERIPHERAL VASCULAR [id number] 04/24/2025 [id number] / / [id number] documented as of this encounter Visit Diagnoses [...] Starting on Marilia 01/23/24 at 1242, Until Sat01/24/24 at 1241, For 24 hours, Do not flush if lock, PICC, or central line not in place; IV infusing or unable to flush. Given 01/23/2024 12:42 PM EST 500 Units sodium chloride 0.9 % flush central line 10 mL 10 mL, IV Push, PRN Other, IV Flush, Starting on Marilia 01/23/24 at 1242, Until Sat01/24/24 at 1241, For 24 hours, Do not flush if lock, PICC, or central line not in place; IV infusing or unable to flush. Given 01/23/2024 12:42 PM EST 10 mL documented in this encounter Advance Directives Documents on File Type Date Recorded Patient Entry Level Management Expl anation Advance Directives and Living Will [...] Agen t (per Health Care Power of Clinical Marketing Manager document) [email or web address] Sibling First Alternate Health Care Agent (per Health Care Power of Clinical Marketing Manager document) [email or web address] Care Teams Manager Inventory Relationship Specialty Start Date End Date Sergio Barriga MD [address] [place] [address] PCP - General Family Medicine 08/07/19 documented as of this encounter
--- OUTSIDE RECORDS SUMMARY | 2024-04-18 23:59 | External Medical Summary | Summary of Care ---
Author Name Unknown Organization [facility] Address [address] [place] [address] Phone [phone] Care Team Providers Care Erp Technical Lead Name Role Phone Sergio Barriga MD Primary Care Provider + Reason for Visit * Reason Onset Date Comments Films 01/27/2024 Encounter Details Date Type Department Care Team (Late st Contact Info) Description 01/27/2024 Telephone Radiology Film File [address] [place], [place] [phone] Dakota Armando MD [address] [place], [place] [address] Films Allergies Active Allergy Reactions Criticality Noted Date Comments Lisinopril Cough Low 08/07/2019 documented as of this encounter (statuses as of 01/27/2024) Medications Medication Sig Dispensed Refills Start Date End Date Status Boost 100 Calorie Smart Oral Liquid Take by mouth. 0 Act miley Multi Vitamin Daily Oral Tablet Take by mouth. 0 Act miley Aspirin 81 MG Oral Tablet Delayed Release Take 1 Tablet by mouth in the morning. 0 Active Pancrelipase (Ksl-Qknq-Fbjp) 12421-11555 UNIT Oral Capsule Delayed Release Particles (Creon 26439) 2 cap with meals, 1 with larger [...] Route Frequency Start Date End Date Status sodium chloride 0.9 % flush/inj 10 mL 10 mL IV PUSH ONCE 01/27/2024 01/28/2024 Active documented as of this encounter (statuses as of 01/27/2024) Active Problems Problem Noted Date Diagnosed Date Malignant neoplasm of body of pancreas 3 Metastasis to liver 08/30/2023 Encounter for antineoplastic chemotherapy 2022 History of carcinoma of pancreas 07/18/2023 Post-viral cough syndrome 07/09/2023 Upper airway cough syndrome 07/09/2023 History of 2019 novel coronavirus disease (COVID -19) 10/16/2022 Coronary artery disease invo lving [place] coronary artery of [place] heart without angina pectoris 08/20/2022 Overview: Severe [...] WNL Factor V+heteroqygous. 04/10 colon-Dr Eller [facility] 2 polyps 1 tubular adenoma. Kevin 5y 2013 sleep study [facility] WNL [address] Elena [facility] Essential hypertension with goal blood pressure [...] as of this encounter (statuses as of 01/27/2024) Resolved Problems Problem Noted Date Diagnosed Date [...] WNL, antiphos lipids WNL Factor V+heteroqygous. FM BO-REAQ-GPCKN DIS NEC documented as of this encounter (statuses as of 01/27/2024) Immunizations Name Administration Dates Next Due COVID-19 mRNA, LNP-s, No Pre serve, 2-Dose Series ([employer]) 01/13/2022,07/21/2021,02/01/2021,01/04 COVID-19, MRNA-LNP, 23-24, P F, 30 MCG/0.3 mL, 12 YRS AND ABOVE, IM ([employer]) 09/12/2023 Covid-19, Mrna, Lnp-s, Pf, B ivalent, [...] encounter Miscellaneous Notes * Telephone Encounter - Nereyda Sheikh OSA - 01/27/2024 1:49 PM EST Patient in facility for appointment. Patient requesting 01/27/24 Abd/Pelvis CT imaging be sent to [facility] Authorization to Release form on file. Imaging pushed through [employer] [facility] to [facility] [employer] system. Job ID [id number]. documented in this encounter Plan of Treatment Upcoming Encounters Date Type Department Care Team (Late st Contact Info) Description 02/03/2024 9:20 AM EDT Laboratory Laboratory [facility] Rehana [place] [address] [place] [phone] Rehana Lab [place] [address] [place] [address] 02/04/2024 8:45 AM EDT Office Visit Hematology/Oncology [place] [place] [address] [place] [address] [phone] Dakota Armando MD [address] [place] [address] 02/04/2024 9:15 AM EDT [facility] 200 [facility] [place] [phone] Park, Chair 10 Hem Onc [facility] 200 [facility] [place] [address] 07/20/2024 10:15 AM EDT Office Visit Dermatology [facility] 200 [facility] [place] [address] Cal Jernigan MD 200 [facility] [place] [address] 07/21/2024 1:45 PM EDT Office Visit Hematology/Oncology [facility] [place] 200 [facility] [place] [phone] Dakota Armando MD 200 [facility] [place] [address] 07/24/2024 11:40 AM EDT Office Visit Family [facility] [address] [place] [address] Sergio Barriga MD [address] [place] [address] Scheduled Procedures Name Priority Associated Diagnoses Date/Ti [...] this encounter Medical Devices Implanted Type Area Straight Edger Device Identifier Shelf Expiration Date Model / Serial / Lot Duraclip 16mm Xlg Repostn - [id number] Implanted:Qty : 1 on 07/17/2021 by Guillermo Jones DO at [facility] [employer] [place]O [id number] 01/10/2024 [id number] / / [id number] Stent Viabil Biliary [id number] - [id number] Implanted:Qty : 1 on 07/17/2021 by Guillermo Jones DO at ENDOSCOPY [facility] [employer] [place] [id number] 03/04/2024 [id number] / [id number] / [id number] Port Implant W/8f Poly Cath - [id number] Implanted:Qty : 1 on 09/13/2023 by Gary Rodriguez DO at OR [facility] Right: Chest CR BARD : PERIPHERAL VASCULAR [id number] 04/24/2025 [id number] / / [id number] documented as of this encounter Advance Directives Documents on File Type Date Recorded Patient Washcoat Wiper Expl anation Advance Directives and Living Will [...] Agen t (per Health Care Power of Brazing Machine Operator Helper document) [email or web address] Cramer Sibling First Alternate Health Care Agent (per Health Care Power of Brazing Machine Operator Helper document) [email or web address] Care Teams Erp Technical Lead Relationship Specialty Start Date End Date Sergio Barriga MD [address] [place] [address] PCP - General Family Medicine 08/07/19 documented as of this encounter
--- OUTSIDE RECORDS SUMMARY | 2024-04-18 23:59 | External Medical Summary | Summary of Care ---
Author Name Unknown Organization [facility] Address [address] [place] [address] Phone [phone] Care Team Providers Care Cornice Upholsterer Name Role Phone Sergio Barriga MD Primary Care Provider + Reason for Visit * Reason Comments Chemotherapy FOLFIRINOX C5D1 * Episode Based Medications (Routine) - Authorized [...] 0.5 MG Dakota Armando MD [address] [employer], [place] [address] Anc Hem/Onc Scene[facility]aine [facility] DEPT CLOSED - 10/08/23 [address] [place] [id number] Referral ID Status Reason Start Date Expiration Date V isits Requested Visits Authorized [id number] Authorized 08/30/2023 11/24/2099 999 99 Encounter Details Date Type Department Care Team (Latest Contact Info) Description 12/10/2023 9:00 AM EST Hem/Onc Treatment Hematology/Oncolog y Treatment, [place] [address] [place] [phone] Rehana, Chair 3 Hem Onc Scenery [address] [place] [address] Encounter for antineoplastic chemotherapy*; Metastasis to liver [...] mouth in the morning. 0 Active Pancrelipase (Gpq-Ytmm-Fpul) 29737-54549 UNIT Oral Capsule Delayed Release Particles (Creon 35868) 2 cap with meals, 1 with larger [...] Active Ondansetron HCl 8 MG Oral Tablet (Zofran)Indicati [...] 4 Discontinued ALPRAZolam 1 MG Oral Tablet (xaNAX)Indicatio ns:Chronic [...] 10/16/2022 Coronary artery disease invo lving [place] coronary artery of [place] heart without angina pectoris 08/20/2022 Overview: Severe [...] WNL Factor V+heteroqygous. 04/10 colon-Dr Case [facility] 2 polyps 1 [...] WNL, antiphos lipids WNL Factor V+heteroqygous. FM [id number] DIS NEC documented as of this encounter (statuses as of 01/20/2024) Immunizations Name Administration Dates Next Due COVID-19 mRNA, LNP-s, No Pre serve, 2-Dose Series ([employer]) 01/13/2022,07/21/2021,02/01/2021,01/04 COVID-19, MRNA-LNP, 23-24, P F, 30 MCG/0.3 mL, 12 YRS AND ABOVE, IM ([employer]) 09/12/2023 Covid-19, Mrna, Lnp-s, Pf, B ivalent, 30 Mcg, IM, 12 yrs and above ([employer]) 08/16/2022 HEP A - Hepatitis A (Adult [...] Sign Reading Time Taken Comments Blood Pressure 115/78 12/10/2023 9:34 AM EST Pulse 90 12/10/2023 9:34 AM EST Temperature 36.2 C (97.2 F) 12/10/2023 9:34 AM ES T Respiratory Rate 18 12/10/2023 9:34 AM EST Oxygen Saturation 100% 12/10/2023 9:34 AM EST Inhaled Oxygen Concentration - - Weight 63.5 kg (140 lb) 12/10/2023 9:34 AM EST Height - - Body Mass Index 20.67 12/02/2023 2:17 PM EST documented in this [...] Nursing Notes * Jing Bray RN - 12/10/2023 2:35 PM EST Pt completed treatment without issues. VAD flushed yielding positive blood return. CADD pump connected to VAD; line unclamped, 5FU infusion initiated. Goals: Pt will remain free from injury. Possible barriers to meeting goals: ambulation with IV pole Stability of the patient: Moderately stable - low risk of patient condition declining or worsening Summary regarding today's goals: Met: Pt remained free from injury during treatment today. Discharged in stable condition. No coverage. * Jing Bray RN - 12/10/2023 10:40 AM EST Functional status at today's visit: Restricted in [...] symptoms or adverse side effects during treatment. * Jing Bray RN - 12/10/2023 10:20 AM EST Chair 10 Chemo agents FOLFIRINOX C5D1 Appetite "good" Nausea/Vomiting no Diarrhea no. Resolved since last tx 5 weeks ago. Reviewed us of Imodium prn. Constipation no Mucositis no Fatigue stable Bleeding no Infection no Rash no Numbness tingling Cold sensitivity has resolved since last treatment Pain no Radiation n/a ABN Labs okay for treatment Alt in Tx: no Return in 2 days for pump disconnect VAD accessed; D5W infusing. Safety and Risk for Injury Patient will remain free from injury. Ensure appropriate safety devices are available. Provide and maintain safe environment. documented in this encounter Plan of Treatment Upcoming Encounters Date Type Department Care Team (Late st Contact Info) Description 01/20/2024 9:10 AM EST Laboratory Laboratory [facility] [place] [address] [place] [phone] Rehana, Lab Scenery [address] [place] [address] 01/21/2024 9:15 AM EST Hem/Onc Treatment Hematology/Oncology Treatment, [place] [address] [place] [phone] Rehana, Chair 8 Hem Onc [facility] [address] [place] [address] 01/27/2024 11:00 AM EST Imaging Radiology [address] [facility] [place] [address] 02/04/2024 8:45 AM EDT Office Visit Hematology/Oncology [facility] Rehana [place] [address] [place] [phone] Dakota Armando MD [address] [place] [address] 07/20/2024 10:15 AM EDT Office Visit Dermatology [facility] [place] [address] [place] [address] Cal Jernigan MD [address] [place] [address] 07/21/2024 1:45 PM EDT Office Visit Hematology/Oncology [facility] [place] [address] [place] [phone] Dakota Armando MD [address] [place] [address] [address] 07/24/2024 11:40 AM EDT Office Visit Family Practice [facility] [address] [facility] [place] [address] Sergio Barriga MD [address] [place] [address] Scheduled Procedures Name Priority Associated Diagnoses Date/Ti me COLONOSCOPY FLEXIBLE PROXIMA L DIAGNOSTIC Recall History of adenomatous polyp of colon Health Maintenance Due Date Last Done Comments Depression Screening 09/10/2023 09/10/2022 COLONOSCOPY-ANNUAL AGES 18-100 09/14/2023 09/14/2022, 09/14/2022, 04/02/2017 GFR 01/06/2025 01/06/2024, 11/26, 12/09/2023, Additional history exists Albumin/Creatinine Ratio 10/16/2025 10/16/2022, [...] this encounter Medical Devices Implanted Type Area Route Salesman And Driver Device Identifier Shelf Expiration Date Model / Serial / Lot Duraclip 16mm Xlg Repostn - [id number] Implanted:Qty : 1 on 07/17/2021 by Guillermo Jones DO at [place] [facility] [place] [employer] REYNALDO [id number] 01/10/2024 [id number] / / [id number] Stent Viabil Biliary [id number] - [id number] Implanted:Qty : 1 on 07/17/2021 by Guillermo Jones DO at [place] [facility] [employer] [id number] 03/04/2024 [id number] / [id number] / [id number] Port Implant W/8f Poly Cath - [id number] Implanted:Qty : 1 on 09/13/2023 by Gary Rodriguez DO at OR [facility] Right: Chest CR BARD : PERIPHERAL VASCULAR [id number] 04/24/2025 [id number] / / [id number] documented as of this encounter Results * (ABNORMAL) CA 19-9 (12/23/2023 9:26 AM EST) CA 19-9 461.2(H) <35.0 U/mL 12/23/2023 6:49 PM EST [facility] Blood Venous blood specimen / Unknown Venipuncture / Unknown 12/23/2023 9:26 AM EST 12/23/2023 9:26 AM EST Dakota Armando MD LAB BLOOD ORDERABLES [facility] [address] [place] [address] documented in this encounter Visit Diagnoses Diagnosis Encounter for [...] mg 0.4 mg, IV Push, ONCE, On Sat12/10/23 at 1015, For 1 dose, Give before CPT-11 Given 12/10/2023 12:35 PM EST 0.4 mg D5W IV solution Intravenous, at 50 mL/hr, CONTINUOUS, Starting on Sat12/10/23 at 1015, Until Sat12/10/23 at 1838 Start Infusion 12/10/2023 9:46 AM EST 500 mL 50 mL/hr Fluorouracil (5-Fu) 4,300 mg for Home Infusion 4,300 mg (rounded from 4,296 mg = 2,400 mg/m2 1.79 m2 Treatment Plan BSA from Recorded weight), Intravenous, Administer over 46 Hours, Home Infusion Pharmacy to specify base solution and volume., ONCE, 1 dose, On Sat12/10/23 at 1230 Start Infusion 12/10/2023 2:10 PM EST 4,300 mg 3 mL/hr Fosaprepitant Dimeglumine (Emend) 150 mg, ondansetron (Zofran) 16 mg, dexamethasone sodium phosphate 12 mg in NSS 250 mL Infusion 150 mg, IV Piggyback, ONCE, 1 dose, On Sat12/10/23 at 1015, Administer over 30 Minutes, Give 30 minutes prior to chemotherapy. Infuse over 30 minutes. Start Infusion 12/10/2023 9:56 AM EST 150 mg 500 mL/hr irinotecan HCl (Camptosar) 260 mg in D5W 500 mL infusion 260 mg (rounded from 268.5 mg = 150 mg/m2 1.79 m2 Treatment Plan BSA from Recorded weight), IV Piggyback, ONCE, 1 dose, On Sat12/10/23 at 1100, Administer over 90 Minutes, PROTECT FROM LIGHT Start Infusion 12/10/2023 12:35 PM EST 260 mg 333.33 mL/hr leucovorin calcium 700 mg in D5W 250 mL INFUSION 700 mg (rounded from 716 mg = 400 mg/m2 1.79 m2 Treatment Plan BSA from Recorded weight), IV Piggyback, ONCE, 1 dose, On Sat12/10/23 at 1100, Administer over 90 Minutes, Run concurrently with irinotecan immediately prior to 5FU Start Infusion 12/10/2023 12:35 PM EST 700 mg 166.67 mL/hr Oxaliplatin (Eloxatin) 150 mg in D5W 500 mL infusion 150 mg (rounded from 152.15 mg = 85 mg/m2 1.79 m2 Treatment Plan BSA from Recorded weight), IV Piggyback, ONCE, 1 dose, On Sat12/10/23 at 1015, Administer over 120 Minutes, Flush with D5W only! Start Infusion 12/10/2023 10:29 AM EST 150 mg 250 mL/hr sodium chloride 0.9 % flush central line 10 mL 10 mL, IV Push, PRN Other, IV Flush, Starting on 1/16/24 at 0933, Until 12/10/23 at 1838, For 24 hours, Do not flush if lock, PICC, or central line not in place; IV infusing or unable to flush. Given 12/10/2023 2:10 PM EST 10 mL documented in this encounter Advance Directives Documents on File Type Date Recorded Patient Cafeteria Associate Expl anation Advance Directives and Living [...] Agen t (per Health Care Power of Soil Technologist document) [email or web address] Temo Bela Sibling First Alternate Health Care Agent (per Health Care Power of Soil Technologist document) [email or web address] Care Teams Cornice Upholsterer Relationship Specialty Start Date End Date Sergio Barriga MD [address] [place] [address] PCP - General Family Medicine 08/07/19 documented as of this encounter
--- OUTSIDE RECORDS SUMMARY | 2024-04-18 23:59 | External Medical Summary ---
Author Name Unknown Address Unknown Organization K[facility] [address] Laboratory Report Ordering Provider Test Date Status JOSE ROY 01/20/2024 09:17:51 Final Observation Date Value Abnormality Reference (Units ) Status WBC, Total 01/20/2024 09:17:51 10.78 4.00-10.8 0 (K/uL) Final RBC 01/20/2024 09:17:51 4.24 4.50-5.25 (M/uL) Final Hemoglobin 01/20/2024 09:17:51 11.9 Below low normal 14 .0-16.8 (g/dL) Final HCT 01/20/2024 09:17:51 38.4 Below low normal 40. 0-48.4 (%) Final MCV 01/20/2024 09:17:51 90.6 82.0-99.5 (fL) Final MCH 01/20/2024 09:17:51 28.1 27.0-34.0 (pg) Final MCHC 01/20/2024 09:17:51 31.0 32.0-36.0 (g/dL) Final RDW 01/20/2024 09:17:51 19.4 11.5-15.5 (%) Final Platelets 01/20/2024 09:17:51 261 140-400 (K /uL) Final MPV 01/20/2024 09:17:51 9.4 6.6-11.1 ( fL) Final Performing Location [facility] [address]
--- OUTSIDE RECORDS SUMMARY | 2024-04-18 23:59 | External Medical Summary | Summary of Care ---
Author Name Unknown Organization [facility] Address [address] [place] [address] Phone [phone] Care Team Providers Care Communication Lecturer Name Role Phone Sergio Barriga MD Primary [...] Armando MD [address] [employer], [place] [address] Anc Hem/Onc Sceneelaine [facility] DEPT CLOSED - 10/08/23 [address] [place] [phone] Referral ID Status Reason Start Date Expiration Date V isits Requested Visits Authorized [id number] Authorized 08/30/2023 11/24/2099 999 99 Encounter Details Date Type Department Care Team (Latest Contact Info) Description 12/10/2023 9:00 AM EST Hem/Onc Treatment Hematology/Oncolog y Treatment, [place] [address] [place] [phone] Rehana, Chair 3 Hem Onc Scenery [address] [place] [address] Encounter for antineoplastic chemotherapy*; Metastasis to liver [...] mouth in the morning. 0 Active Pancrelipase (Bgc-Rfdk-Hyzf) [address] UNIT Oral Capsule Delayed Release Particles (Creon 64803) 2 cap with meals, 1 with larger [...] -19) 10/16/2022 Coronary artery disease invo lving [place] coronary artery of [place] heart without angina pectoris 08/20/2022 Overview: [...] Factor V+heteroqygous. 04/10 colon-Dr Case [facility] 2 polyps 1 tubular [...] WNL, antiphos lipids WNL Factor V+heteroqygous. FM [id number] DIS NEC documented as of this encounter (statuses as of 01/20/2024) Immunizations Name Administration Dates Next Due COVID-19 mRNA, LNP-s, No Pre serve, 2-Dose Series ([employer]) 01/13/2022,07/21/2021,02/01/2021,01/04 COVID-19, MRNA-LNP, 23-24, P F, 30 MCG/0.3 mL, 12 YRS AND ABOVE, IM ([employer]) 09/12/2023 Covid-19, Mrna, Lnp-s, Pf, B ivalent, 30 Mcg, IM, 12 yrs and above ([employer]) 08/16/2022 HEP A - Hepatitis A (Adult [...] Description 01/20/2024 9:10 AM EST Laboratory Laboratory [facility] [place] [address] [place] [phone] Rehana, Lab Scenery [address] [place] [address] 01/21/2024 9:15 AM EST Hem/Onc Treatment Hematology/Oncology Treatment, [place] [address] [place] [phone] Rehana, Chair 8 Hem Onc [facility] [address] [place] [address] 01/27/2024 11:00 AM EST Imaging Radiology [address] [facility] [address] 02/04/2024 8:45 AM EDT Office Visit Hematology/Oncology [facility] Rehana [place] [address] [place] [phone] Dakota Armando MD [address] [place] [address] 07/20/2024 10:15 AM EDT Office Visit Dermatology [facility] [place] [address] [place] [address] Cal Jernigan MD [address] [place] [address] 07/21/2024 1:45 PM EDT Office Visit Hematology/Oncology [facility] [place] [address] [place] [phone] Dakota Armando MD [address] [place] [address] 07/24/2024 11:40 AM EDT Office Visit Family Practice [facility] [address] [facility] [place] [address] Sergio Barriga MD [address] [place] [address] Scheduled Procedures Name Priority Associated Diagnoses Date/Ti [...] this encounter Medical Devices Implanted Type Area Kardex Clerk Device Identifier Shelf Expiration Date Model / Serial / Lot Duraclip 16mm Xlg Repostn - [id number] Implanted:Qty : 1 on 07/17/2021 by Guillermo Jones DO [place] [facility] [place] [employer] REYNALDO [id number] 01/10/2024 [id number] / / [id number] Stent Viabil Biliary [id number] - [id number] Implanted:Qty : 1 on 07/17/2021 by Guillermo Jones DO [place] [facility] [place] [employer] [id number] 03/04/2024 [id number] / [id number] / [id number] Port Implant W/8f Poly Cath - [id number] Implanted:Qty : 1 on 09/13/2023 by Gary Rodriguez DO at OR [facility] Right: Chest CR BARD : PERIPHERAL VASCULAR [id number] 04/24/2025 [id number] / / [id number] documented as of this encounter Results * (ABNORMAL) CA 19-9 (12/23/2023 9:26 AM EST) CA 19-9 461.2(H) <35.0 U/mL 12/23/2023 6:49 PM EST [facility] Blood Venous blood specimen / Unknown Venipuncture / Unknown 12/23/2023 9:26 AM EST 12/23/2023 9:26 AM EST Dakota Armando MD LAB BLOOD ORDERABLES [facility] [address] [place] [address] documented in this encounter Visit [...] Documents on File Type Date Recorded Patient Director Of Event Sales Expl anation Advance Directives and Living [...] Agen t (per Health Care Power of Hydrogen Plant Operator document) @[employer] Temo Bela Sibling First Alternate Health Care Agent (per Health Care Power of Hydrogen Plant Operator document) [email or web address] Care Teams Communication Lecturer Relationship Specialty Start Date End Date Sergio Barriga MD [address] [place] [address] PCP - General Family Medicine 08/07/19 documented as of this encounter
--- OUTSIDE RECORDS SUMMARY | 2024-04-18 23:59 | External Medical Summary ---
Author Name Unknown Address Unknown Organization [facility] [address] [place] [address] Laboratory Report Ordering Provider Test Date Status JOSE ROY 01/20/2024 09:17:51 Final Observation Date Value Abnormality Reference (Units ) Status BUN 01/20/2024 09:17:51 12 6-20 (mg/dL) Final Creatinine 01/20/2024 09:17:51 1.0 0.6-1.2 (mg/dL) Final Glomerular filtration rate/1.73 sq M.predicted [Volume Rate/Area] in Serum, Plasma or Blood by Creatinine-based formula (CKD-EPI) 01/20/2024 09:17:51 79 >=60 (mL/min) Final eGFR is calculated based on the CKD-EPI 2020 equation SODIUM 01/20/2024 09:17:51 139 135-146 (m mol/L) Final Potassium 01/20/2024 09:17:51 3.5 3.5-5.1 (m mol/L) Final Cl 01/20/2024 09:17:51 101 98-107 (mm ol/L) Final CO2 01/20/2024 09:17:51 28 22-32 (mmo l/L) Final Anion gap 01/20/2024 09:17:51 10 7-15 (mmol /L) Final Glucose 01/20/2024 09:17:51 143 Above high normal 70 -120 (mg/dL) Final Albumin 01/20/2024 09:17:51 3.9 3.8-5.0 (g /dL) Final AST (Aspartate aminotransferase) 01/20/2024 09:17:51 50 10-50 (U/L) Fin al Alk Phos 01/20/2024 09:17:51 239 Above high normal 35 -130 (U/L) Final Bilirubin, Total 01/20/2024 09:17:51 0.3 <=1 .2 (mg/dL) Final Calcium 01/20/2024 09:17:51 9.4 8.4-10.2 ( mg/dL) Final Protein 01/20/2024 09:17:51 6.7 6.0-8.3 (g /dL) Final ALT (Alanine aminotransferase) 01/20/2024 09:17:51 40 10-50 (U/L) Silverio baker Performing Location [facility] [address] [place] [address]
--- OUTSIDE RECORDS SUMMARY | 2024-04-18 23:59 | External Medical Summary | Summary of Care ---
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 0 Active Pancrelipase (Wwp-Ptrs-Znyr) 24223-10774 UNIT Oral Capsule Delayed Release Particles (Creon 13154) 2 cap with meals, 1 with larger [...] artery disease invo [place]ving [place] coronary artery of [place] heart without angina pectoris 08/20/2022 Overview: Severe [...] lipids WNL Factor V+heteroqygous. 04/10 colon-Dr Case [facility] 2 polyps 1 tubular adenoma. Kevin 5y 2013 sleep study [facility] WNL [address] Elena [facility] Essential hypertension with goal blood [...] WNL, antiphos lipids WNL Factor V+heteroqygous. FM OI-RYKL-GCMMR DIS NEC documented as of this encounter (statuses as of 01/20/2024) Immunizations Name Administration Dates Next Due COVID-19 mRNA, LNP-s, No Pre serve, 2-Dose Series ([employer] 01/13/2022,07/21/2021,02/01/2021,01/04 COVID-19, MRNA-LNP, 23-24, P F, 30 MCG/0.3 mL, 12 YRS AND ABOVE, IM ([facility]) 09/12/2023 Covid-19, Mrna, Lnp-s, Pf, B ivalent, 30 Mcg, IM, 12 yrs and above ([employer] 08/16/2022 HEP A - Hepatitis A (Adult [...] Care Team (Late st Contact Info) Description 01/21/2024 9:15 AM EST Hem/Onc Treatment Hematology/Oncology Treatment, [place] [address] [place] [phone] Rehana, Chair 8 Hem Onc [place] [address] [place] [address] 01/27/2024 11:00 AM EST Imaging Radiology [address], [place] [facility] [address] 02/04/2024 8:45 AM EDT Office Visit Hematology/Oncology [facility] [place] [address] [place] [phone] Dakota Armando MD 200 [place] [address] 07/20/2024 10:15 AM EDT Office Visit Dermatology [facility] [place] [address] [place] [address] Cal Jernigan MD [facility] [place] [address] 07/21/2024 1:45 PM EDT Office Visit Hematology/Oncology [facility] [place] [address] [phone] Dakota Armando MD 200 [facility] [place] [address] 07/24/2024 11:40 AM EDT Office Visit Family [facility] [address] [place] [address] Sergio Barriga MD [address] [place] [address] Pending Results Name Type Priority Associated Diagnoses Date /Time COMPREHENSIVE METABOLIC PANEL Lab STAT 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) 01/20/2024 9:17 AM EST CA 19-9 Lab STAT 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) 01/20/2024 9:17 AM EST Scheduled Procedures Name Priority Associated Diagnoses Date/Ti [...] encounter Medical Devices Implanted Type Area Joint Setter Device Identifier Shelf Expiration Date Model / Serial / Lot Duraclip 16mm Xlg Repostn - [id number] Implanted:Qty : 1 on 07/17/2021 by Guillermo [place] [facility] [employer] [id number] 01/10/2024 [id number] / / [id number] Stent Viabil Biliary [id number] - [id number] Implanted:Qty : 1 on 07/17/2021 by Guillermo Jones DO [place] [facility] [employer] [id number] 03/04/2024 [id number] / [id number] / [id number] Port Implant W/8f Poly Cath - [id number] Implanted:Qty : 1 on 09/13/2023 by Gary Rodriguez DO at OR [facility] Right: Chest CR BARD : PERIPHERAL VASCULAR [id number] 04/24/2025 [id number] / / [id number] documented as of this encounter Procedures Procedure Name Priority Date/Time Associated Diagnosis Comments DIFFERENTIAL, AUTOMATED STAT 01/20/2024 9:17 AM EST 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) CBC STAT 01/20/2024 9:17 AM EST 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) CBC STAT 01/20/2024 9:17 AM EST 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) documented in this encounter Results * (ABNORMAL) DIFFERENTIAL, AUTOMATED (01/20/2024 9:17 AM EST) WBC 10.78 4.00 - 10.80 K/uL 01/20/2024 9:28 AM EST LABORATORY [facility] 56-02 Neutrophils % 72.1 40.0 - 75.0 % 01/20/2024 9:28 AM EST LABORATORY [facility] 56-02 Lymphocytes % 13.6(L) 18.0 - 42.0 % 01/20/2024 9:28 AM [facility] 56 Monocytes % 8.9 1.0 - 11.0 % 01/20/2024 9:28 AM [facility] 56 Eosinophils % 4.9 0.0 - 6.0 % 01/20/2024 9:28 AM [facility] 56 Basophils % 0.5 0.0 - 2.0 % 01/20/2024 9:28 AM [facility] 56 Absolute Neutrophils 7.77(H) 1.80 - 7.70 K/uL 01/20/2024 9:28 AM [facility] 56 Absolute Lymphocytes 1.47 1.00 - 4.80 K/ul 01/20/2024 9:28 AM [facility] 56 Absolute Monocytes 0.96 0.00 - 1.10 K/uL 01/20/2024 9:28 AM [facility] 56 Absolute Eosinophils 0.53 0.00 - 0.70 K/uL 01/20/2024 9:28 AM [facility] 56 Absolute Basophils 0.05 0.00 - 0.20 K/uL 01/20/2024 9:28 AM [facility] 56 Blood Venous blood specimen / Unknown Venipuncture / Unknown 01/20/2024 9:17 AM EST 01/20/2024 9:17 AM EST Dakota Armando MD LAB BLOOD ORDERABLES [facility] [address] [place] [address] * (ABNORMAL) CBC (01/20/2024 9:17 AM EST) WBC 10.78 4.00 - 10.80 K/uL 01/20/2024 9:28 AM [facility] 56 RBC 4.24 4.50 - 5.25 M/uL 01/20/2024 9:28 AM [facility] 56 HGB 11.9(L) 14.0 - 16.8 g/dL 01/20/2024 9:28 AM [facility] 56 HCT 38.4(L) 40.0 - 48.4 % 01/20/2024 9:28 AM [facility] 56 MCV 90.6 82.0 - 99.5 fL 01/20/2024 9:28 AM [facility] 56 MCH 28.1 27.0 - 34.0 pg 01/20/2024 9:28 AM [facility] 56 MCHC 31.0 32.0 - 36.0 g/dL 01/20/2024 9:28 AM [facility] 56 RDW 19.4 11.5 - 15.5 % 01/20/2024 9:28 AM [facility] 56 PLT 261 140 - 400 K/uL 01/20/2024 9:28 AM [facility] 56 MPV 9.4 6.6 - 11.1 fL 01/20/2024 9:28 AM [facility] 56 Blood Venous blood specimen / Unknown Venipuncture / Unknown 01/20/2024 9:17 AM EST 01/20/2024 9:17 AM EST Dakota Armando MD LAB BLOOD ORDERABLES Performing Organization Address City/State/[facility] Co de Phone Number [address] [place] [address] documented in this encounter Visit Diagnoses Diagnosis 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) Malignant neoplasm of body of pancreas 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 documented in this encounter Advance Directives Documents on File Type Date Recorded Patient Block Feeder Expl anation Advance Directives and Living Will [...] Agen t (per Health Care Power of Sql Database Administrator document) [email or web address] Temo Cramer Sibling First Alternate Health Care Agent (per Health Care Power of Sql Database Administrator document) [email or web address] Care Teams Winder Contort Operator Relationship Specialty Start Date End Date Sergio Barriga MD [address] [place] [address] PCP - General Family Medicine 08/07/19 documented as of this encounter
--- OUTSIDE RECORDS SUMMARY | 2024-04-18 23:59 | External Medical Summary | Summary of Care ---
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) Procedures MD LEUCOVORIN CALCIUM INJECTION MD FLUOROURACIL INJECTION MD IRINOTECAN INJECTION MD OXALIPLATIN MD FOSAPREPITANT INJECTION BEVACIZUMAB-BVZR, BIOSIMILAR, 10 MG (ZIRABEV), IV MD INJECTION, UDENYCA 0.5 MG Dakota Armando MD [address] [employer], [place] [address] Anc Hem/Onc Sceneelaine Kimball DEPT CLOSED - 10/08/23 [address] [place] [phone] Referral ID Status Reason Start Date Expiration Date V isits Requested Visits Authorized [id number] Authorized 08/30/2023 11/24/2099 999 99 Encounter Details Date Type Department Care Team (Latest Contact Info) Description 12/10/2023 9:00 AM EST Hem/Onc Treatment Hematology/Oncolog y Treatment, [place] [address] [place] [phone] Rehana, Chair 3 Hem Onc Scenery [address] [place] [address] Encounter for antineoplastic chemotherapy*; Metastasis to liver [...] mouth in the morning. 0 Active Pancrelipase (Iuq-Xcmq-Urfq) 92085-[address] UNIT Oral Capsule Delayed Release Particles (Creon 08204) 2 cap with meals, 1 with larger [...] lipids WNL Factor V+heteroqygous. 04/10 colon-Dr Case [facility] 2 polyps 1 tubular adenoma. Kevin 6y 2013 sleep study [facility] WNL [address] Elena [facility] WNL, antiphos lipids WNL Factor V+heteroqygous. FM MU-PPNO-VJZTW DIS NEC documented as of this encounter (statuses as of 01/20/2024) Immunizations Name Administration Dates Next Due COVID-19 mRNA, LNP-s, No Pre serve, 2-Dose Series ([employer]) 01/13/2022,07/21/2021,02/01/2021,01/04 COVID-19, MRNA-LNP, 23-24, P F, 30 MCG/0.3 mL, 12 YRS AND ABOVE, IM ([employer]Fran[employer]OdeeoirTuebora) 09/12/2023 Covid-19, Mrna, Lnp-s, Pf, B ivalent, 30 Mcg, IM, 12 yrs and above ([employer]) 08/16/2022 HEP A - Hepatitis A (Adult [...] Description 01/20/2024 9:10 AM EST Laboratory Laboratory [facility] [place] [address] [place] [phone] Rehana, Lab Scenery [address] [place] [address] 01/21/2024 9:15 AM EST Hem/Onc Treatment Hematology/Oncology Treatment, [place] [address] [place] [phone] Rehana, Chair 8 Hem Onc [facility] [address] [place] [address] [place] [address] 01/27/2024 11:00 AM EST Imaging Radiology [address] [facility] [address] 02/04/2024 8:45 AM EDT Office Visit Hematology/Oncology [facility] Rehana [place] [address] [place] [phone] Dakota Armando MD [address] [place] [address] 07/20/2024 10:15 AM EDT Office Visit Dermatology [facility] [place] [address] [place] [address] Cal Jernigan MD [address] [place] [address] 07/21/2024 1:45 PM EDT Office Visit Hematology/Oncology [facility] [place] [address] [place] [phone] Dakoat Armando MD [address] [place] [address] 07/24/2024 11:40 AM EDT Office Visit Family Practice [facility] 132 [facility] [place] [address] Sergio Barriga MD [address] [place] [address] Scheduled Procedures Name Priority Associated Diagnoses Date/Ti [...] this encounter Medical Devices Implanted Type Area Health Science Writer Device Identifier Shelf Expiration Date Model / Serial / Lot Duraclip 16mm Xlg Repostn - [id number] Implanted:Qty : 1 on 07/17/2021 by Guillermo Jones DO at ENDOSCOPY [facility] [place] [employer] REYNALDO [id number] 01/10/2024 [id number] / / [id number] Stent Viabil Biliary [id number] - [id number] Implanted:Qty : 1 on 07/17/2021 by Guillermo Jones DO at ENDOSCOPY [facility] [employer] [id number] 03/04/2024 [id number] / [id number] / [id number] Port Implant W/8f Poly Cath - [id number] Implanted:Qty : 1 on 09/13/2023 by Gary Rodriguez DO at OR [facility] Right: Chest CR BARD : PERIPHERAL VASCULAR [id number] 04/24/2025 [id number] / / [id number] documented as of this encounter Results * (ABNORMAL) CA 19-9 (12/23/2023 9:26 AM EST) CA 19-9 461.2(H) <35.0 U/mL 12/23/2023 6:49 PM EST LABORATORY [facility] Blood Venous blood specimen / Unknown Venipuncture / Unknown 12/23/2023 9:26 AM EST 12/23/2023 9:26 AM EST Dakota Armando MD LAB BLOOD ORDERABLES [facility] [address] [place] [address] documented in this encounter Visit [...] Documents on File Type Date Recorded Patient Bird Tender Expl anation Advance Directives and Living [...] Agen t (per Health Care Power of Dean Of Boys document) [email or web address] Temo Bela Sibling First Alternate Health Care Agent (per Health Care Power of Dean Of Boys document) [email or web address] Mobile Care Teams Bonding Equipment Operator Relationship Specialty Start Date End Date Sergio Barriga MD [address] [place] [address] PCP - General Family Medicine 08/07/19 documented as of this encounter
--- OUTSIDE RECORDS SUMMARY | 2024-04-18 23:59 | External Medical Summary | Summary of Care ---
Author Name Unknown Organization [facility] Address [address] [place] [address] Phone [phone] Care Team Providers Care Metal Temperer Name Role Phone Sergio Barriga MD Primary [...] Armando MD [address] [employer], [place] [address] Anc Hem/Onc Sceneelaine Kimball DEPT CLOSED - 10/08/23 [address] [place] [address] Referral ID Status Reason Start Date Expiration Date V isits Requested Visits Authorized [id number] Authorized 08/30/2023 11/24/2099 999 99 Encounter Details Date Type Department Care Team (Latest Contact Info) Description 12/10/2023 9:00 AM EST Hem/Onc Treatment Hematology/Oncolog y Treatment, [place] [address] [place] [phone] Rehana, Chair 3 Hem Onc Scenery [address] [place] [address] Encounter for antineoplastic chemotherapy*; Metastasis to liver [...] mouth in the morning. 0 Active Pancrelipase (Wzc-Odog-Umkv) 44520-765[address] UNIT Oral Capsule Delayed Release Particles (Creon 10851) 2 cap with meals, 1 with larger [...] -19) 10/16/2022 Coronary artery disease invo lving [place] coronary artery of [place] heart without angina pectoris 08/20/2022 Overview: Severe [...] WNL Factor V+heteroqygous. 04/10 colon-Dr Case [facility] 2 polyps 1 tubular adenoma. Kevin 5y 2013 sleep study [facility] WNL [address] Elena [facility] [...] WNL, antiphos lipids WNL Factor V+heteroqygous. FM DP-LVKQ-YQEPW DIS NEC documented as of this encounter (statuses as of 01/20/2024) Immunizations Name Administration Dates Next Due COVID-19 mRNA, LNP-s, No Pre serve, 2-Dose Series (Seratis) 01/13/2022,07/21/2021,02/01/2021,01/04 COVID-19, MRNA-LNP, 23-24, P F, 30 MCG/0.3 mL, 12 YRS AND ABOVE, IM ([employer] Xue[employer]uan-MessagePartyirATEME) 09/12/2023 Covid-19, Mrna, Lnp-s, Pf, B ivalent, 30 Mcg, IM, 12 yrs and above (Seratis) 08/16/2022 HEP A - Hepatitis A (Adult [...] Description 01/20/2024 9:10 AM EST Laboratory Laboratory [facility] [place] [address] [place] [phone] Rehana, Lab Scenery [address] [place] [address] 01/21/2024 9:15 AM EST Hem/Onc Treatment Hematology/Oncology Treatment, [place] [address] [place] [phone] Rehana, Chair 8 Hem Onc [facility] [address] [place] [address] 01/27/2024 11:00 AM EST Imaging Radiology [address] 132 [facility] [address] 02/04/2024 8:45 AM EDT Office Visit Hematology/Oncology [facility] Rehana [place] [address] [place] [phone] Dakota Armando MD [address] [place] [address] 07/20/2024 10:15 AM EDT Office Visit Dermatology [facility] [place] [address] [place] [address] Cal Jernigan MD [address] [place] [address] 07/21/2024 1:45 PM EDT Office Visit Hematology/Oncology [facility] [place] [address] [place] [phone] Dakota Armando MD [address] [place] [address] [address] 07/24/2024 11:40 AM EDT Office Visit Family Practice [facility] 132 [facility] [place] [address] Sergio Barriga MD [address] [place] [address] Scheduled Procedures Name Priority Associated Diagnoses Date/Ti [...] this encounter Medical Devices Implanted Type Area Denture Contour Wire Specialist Device Identifier Shelf Expiration Date Model / Serial / Lot Duraclip 16mm Xlg Repostn - [id number] Implanted:Qty : 1 on 07/17/2021 by Guillermo Jones DO [place] [facility] [employer] REYNALDO [id number] 01/10/2024 [id number] / / [id number] Stent Viabil Biliary [id number] - [id number] Implanted:Qty : 1 on 07/17/2021 by Guillermo Jones DO [place] [facility] [facility] [employer] [id number] 03/04/2024 [id number] / [id number] / [id number] Port Implant W/8f Poly Cath - [id number] Implanted:Qty : 1 on 09/13/2023 by Gary Rodriguez DO at OR [facility] Right: Chest CR BARD : PERIPHERAL VASCULAR [id number] 04/24/2025 [id number] / / [id number] documented as of this encounter Results * (ABNORMAL) CA 19-9 (12/23/2023 9:26 AM EST) CA 19-9 461.2(H) <35.0 U/mL 12/23/2023 6:[address] [facility] Blood Venous blood specimen / Unknown Venipuncture / Unknown 12/23/2023 9:26 AM EST 12/23/2023 9:26 AM EST Dakota Armando MD LAB BLOOD ORDERABLES [facility] [address] [place] [address] documented in this encounter Visit [...] Documents on File Type Date Recorded Patient Special Education Curriculum Specialist Expl anation Advance Directives and Living [...] Agen t (per Health Care Power of Silverlight Developer document) [email or web address] Temo Bela Sibling First Alternate Health Care Agent (per Health Care Power of Silverlight Developer document) [email or web address] Care Teams Metal Temperer Relationship Specialty Start Date End Date Sergio Barriga MD [address] [place] [address] PCP - General Family Medicine 08/07/19 documented as of this encounter
--- OUTSIDE RECORDS SUMMARY | 2024-04-18 23:59 | External Medical Summary | Summary of Care ---
Author Name Unknown Organization [facility] Address [address] [place] [address] Phone [phone] Care Team Providers Care Kennel Manager Dog Track Name Role Phone Sergio Barriga MD Primary [...] Armando MD [address] [employer], [place] [address] Anc Hem/Onc Sceneelaine Kimball DEPT CLOSED - 10/08/23 [address] [place] [address] Referral ID Status Reason Start Date Expiration Date V isits Requested Visits Authorized [id number] Authorized 08/30/2023 11/24/2099 999 99 Encounter Details Date Type Department Care Team (Latest Contact Info) Description 01/21/2024 9:15 AM EST Hem/Onc Treatment Hematology/Oncolog [place] Treatment, [place] [address] [place] [address] Rehana, Chair 8 Hem Onc Scenery [address] [place] [address] Encounter for antineoplastic chemotherapy*; 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); 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 0 Act miley Multi Vitamin Daily Oral Tablet Take by mouth. 0 Act miley Aspirin 81 MG Oral Tablet Delayed Release Take 1 Tablet by mouth in the morning. 0 Active Pancrelipase (Vxx-Nwxh-Wryo) 76960-99171 UNIT Oral Capsule Delayed Release Particles (Creon 06010) 2 cap with meals, 1 with larger [...] as of this encounter (statuses as of 01/21/2024) Active Problems Problem Noted Date Diagnosed Date Malignant neoplasm of body of pancreas Metastasis to liver 08/30/2023 Encounter for antineoplastic chemotherapy 2022 History of carcinoma of pancreas 07/18/2023 Post-viral cough syndrome 07/09/2023 Upper airway cough syndrome 07/09/2023 History of 2019 novel coronavirus disease (COVID -19) 10/16/2022 Coronary artery disease invo lving [place] coronary artery of [place] heart without angina pectoris 08/20/2022 Overview: Severe [...] WNL Factor V+heteroqygous. 04/10 colon-Dr Case [facility] 2 polyps 1 [...] as of this encounter (statuses as of 01/21/2024) Resolved Problems Problem Noted Date Diagnosed Date [...] WNL, antiphos lipids WNL Factor V+heteroqygous. FM BQ-ZHOY-HNRTK DIS NEC documented as of this encounter (statuses as of 01/21/2024) Immunizations Name Administration Dates Next Due COVID-19 mRNA, LNP-s, No Pre serve, 2-Dose Series ([employer]) 01/13/2022,07/21/2021,02/01/2021,01/04 COVID-19, MRNA-LNP, 23-24, P F, 30 MCG/0.3 mL, 12 YRS AND ABOVE, IM ([facility] 09/12/2023 Covid-19, Mrna, Lnp-s, Pf, B ivalent, 30 Mcg, IM, 12 yrs and above ([employer]) 08/16/2022 HEP A - Hepatitis A (Adult [...] Care Team (Late st Contact Info) Description 01/23/2024 12:15 PM EST Immunization/Injectio n Hematology/Oncology Treatment, [place] [address] [facility] [place] [phone] Nurse, Med 4 [address] [place] [address] 01/24/2024 12:15 PM EST Immunization/Injectio n Hematology/Oncology Treatment, [place] [address] [facility] [place] [phone] Nurse, Med 4 [address] [place] [address] 01/27/2024 11:00 AM EST Imaging Radiology [facility], [place] [address] [facility] [place] [address] 02/03/2024 9:20 AM EDT Laboratory Laboratory [facility] [place] [address] [phone] Park, Lab [place] [address] [address] [facility] [place] [address] 02/04/2024 8:45 AM EDT Office Visit Hematology/Oncology [facility] [place] [address] [place] [phone] [place] Armando MD [address] [place] [place] [address] 02/04/2024 9:15 AM EDT Hem/Onc Treatment Hematology/Oncology Treatment, [place] [address] [facility] [place] [phone] Rehana, Chair 10 Hem Onc [place] [address] [place] [address] 07/20/2024 10:15 AM EDT Office Visit Dermatology [facility] [address] [place] [address] Cal Jernigan MD [address] [place] [place] [address] 07/21/2024 1:45 PM EDT Office Visit Hematology/Oncology [facility] [address] [place] [address] [place] Armando MD [address] [facility] [place] [address] 07/24/2024 11:40 AM EDT Office Visit Family Practice [facility] [address] [place] [address] Sergio Barriga MD [address] [place] [address] Scheduled Procedures Name Priority Associated Diagnoses Date/Ti [...] this encounter Medical Devices Implanted Type Area Crisis Therapist Device Identifier Shelf Expiration Date Model / Serial / Lot Duraclip 16mm Xlg Repostn - [id number] Implanted:Qty : 1 on 07/17/2021 by Guillermo Jones DO at ENDOSCOPY [facility] [place] REYNALDO [id number] 01/10/2024 [id number] / / [id number] Stent Viabil Biliary 37azo1tn - [id number] Implanted:Qty : 1 on 07/17/2021 by Guillermo Jones DO at ENDOSCOPY [facility] [place] RE[employer]O [id number] 03/04/2024 [id number] / [id number] / [id number] Port Implant W/8f Poly Cath - [id number] Implanted:Qty : 1 on 09/13/2023 by Gary Rodriguez DO at OR [facility] Right: Chest CR BARD : PERIPHERAL VASCULAR [id number] 04/24/2025 [id number] / / [id number] documented as of this encounter Visit Diagnoses [...] on Sat01/21/24 at 1000, Until Sat01/21/24 at 1959 Start Infusion 01/21/2024 9:35 AM EST 500 mL 50 mL/hr diphenhydrAMINE (Benadryl) inj 50 mg 50 mg, IV Push, ONCE PRN Other, Hypersensitivity Reaction, Starting on Sat01/21/24 at 0925, Until Sat01/22/24 at 0924, For 24 hours EPINEPHrine 1 MG/ML inj 0.3 mg 0.3 mg, Intramuscular, ONCE PRN Other, Hypersensitivity Reaction or Anaphylaxis, Starting on Sat01/21/24 at 0925, Until Sat01/22/24 at 0924, For 24 hours hEParin 100 UNIT/ML Lock Flush inj 500 Units 500 Units (5 mL), IV Lock, PRN Other, IV Flush, Starting on Sat01/21/24 at 0925, Until Sat01/22/24 at 0924, For 24 hours, Do not flush if lock, PICC, or central line not in place; IV infusing or unable to flush. Hydrocortisone Sod Suc (PF) (Solu-Cortef) inj 100 mg 100 mg, IV Push, ONCE PRN Other, Hypersensitivity Reaction, Starting on Sat01/21/24 at 0925, Until Sat01/22/24 at 0924, For 24 hours oxygen GAS Inhalation, OXYGEN, First dose on Sat01/21/24 at 1000, Until Discontinued, Device/Managed by: Low Flow Device, [...] Push, PRN Other, IV Flush, Starting on Sat01/21/24 at 0925, Until Sat01/22/24 at 0924, For 24 hours, Do not flush if lock, PICC, or central line not in place; IV infusing or unable to flush. Inactive Administered Medications - up to 3 most recent administrations Medication Order MAR Action Action Date Dose Rate Site Atropine sulfate inj 0.4 mg 0.4 mg, IV Push, ONCE, On Sat01/21/24 at 1000, For 1 dose, Give before CPT-11 Given 01/21/2024 12:24 PM EST 0.4 mg Fluorouracil (5-Fu) 4,300 mg for [...] Documents on File Type Date Recorded Patient Bioinformatics Developer Expl anation Advance Directives and Living [...] Agen t (per Health Care Power of [place] Weapon System Operator document) [email or web address] Temo Bela Sibling First Alternate Health Care Agent (per Health Care Power of [place] Weapon System Operator document) Care Teams Kennel Manager Dog Track Relationship Specialty Start Date End Date Sergio Barriga MD [address] [place] [address] PCP - General Family Medicine 08/07/19 documented as of this encounter
--- OUTSIDE RECORDS SUMMARY | 2024-04-18 23:59 | External Medical Summary | Summary of Care ---
Author Name Unknown Organization [facility] Address [address] [place] [address] Phone [phone] Care Team Providers Care Metal Roofing Mechanic Name Role Phone Sergio Barriga MD Primary Care Provider + Reason for Visit * Reason Comments Medication Administration Udenyca * Episode Based Medications (Routine) - Authorized Specialty Diagnoses / Procedures Referred By Linda hu Referred To Contact Diagnoses Encounter for antineoplastic chemotherapy 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) 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) Procedures NE LEUCOVORIN CALCIUM INJECTION NE FLUOROURACIL INJECTION NE IRINOTECAN INJECTION NE OXALIPLATIN NE FOSAPREPITANT INJECTION BEVACIZUMAB-BVZR, BIOSIMILAR, 10 MG (ZIRABEV), IV NE INJECTION, UDENYCA 0.5 MG [place] Armando MD [address] [employer], [place] [address] Anc Hem/Onc [facility] DEPT CLOSED - 10/08/23 [address] [place] [address] Referral ID Status Reason Start Date Expiration Date V isits Requested Visits Authorized [id number] Authorized 08/30/2023 11/24/2099 999 99 Encounter Details Date Type Department Care Team (Latest Contact Info) Description 01/24/2024 12:15 PM EST Immunization/ Injection Hematology/Oncology Treatment, [place] [address] [place] [address] Nurse, Med 4 [address] [place] [address] Encounter for antineoplastic chemotherapy*; 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); 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) Allergies Active Allergy Reactions Criticality Noted Date Comments Lisinopril Cough Low 08/07/2019 documented as of this encounter (statuses as of 01/24/2024) Medications Medication Sig Dispensed Refills Start Date End Date Status Boost 100 Calorie Smart Oral Liquid Take by mouth. 0 Act miley Multi Vitamin Daily Oral Tablet Take by mouth. 0 Act miley Aspirin 81 MG Oral Tablet Delayed Release Take 1 Tablet by mouth in the morning. 0 Active Pancrelipase (Vdw-Xrmx-Ldld) 11514-30[address] UNIT Oral Capsule Delayed Release Particles (Creon 21210) 2 cap with meals, 1 with larger [...] as of this encounter (statuses as of 01/24/2024) Active Problems Problem Noted Date Diagnosed Date Malignant neoplasm of body of pancreas Metastasis to liver 08/30/2023 Encounter for antineoplastic chemotherapy 2022 History of carcinoma of pancreas 07/18/2023 Post-viral cough syndrome 07/09/2023 Upper airway cough syndrome 07/09/2023 History of 2019 novel coronavirus disease (COVID -19) 10/16/2022 Coronary artery disease invo lving [place] coronary artery of [place] heart without angina pectoris 08/20/2022 Overview: Severe [...] as of this encounter (statuses as of 01/24/2024) Resolved Problems Problem Noted Date Diagnosed Date [...] WNL, antiphos lipids WNL Factor V+heteroqygous. FM YD-TSOI-GSUYC DIS NEC documented as of this encounter (statuses as of 01/24/2024) Immunizations Name Administration Dates Next Due COVID-19 mRNA, LNP-s, No Pre serve, 2-Dose Series ([employer]) 01/13/2022,07/21/2021,02/01/2021,01/04 COVID-19, MRNA-LNP, 23-24, P F, 30 MCG/0.3 mL, 12 YRS AND ABOVE, IM ([employer]) 09/12/2023 Covid-19, Mrna, Lnp-s, Pf, B ivalent, 30 Mcg, IM, 12 yrs and above ([employer]) 08/16/2022 HEP A - Hepatitis A (Adult [...] Team (Late st Contact Info) Description 01/27/2024 11:00 AM EST Imaging Radiology [address], [address] [place] [address] 02/03/2024 9:20 AM EDT Laboratory Laboratory [facility] [place] [address] [place], [place] [phone] Rehana, Lab [facility] [address] [facility] [place], [place] [address] 02/04/2024 8:45 AM EDT Office Visit Hematology/Oncology [facility] [place] [address] [place] [phone] Dakota Armando MD [address] [place], [place] [address] 02/04/2024 9:15 AM EDT [facility] [address] [place], [place] [phone] Rehana, Chair 10 Hem Onc [facility] [address] [facility] [place], [place] [address] 07/20/2024 10:15 AM EDT Office Visit Dermatology [facility] [place] [address] [place], [place] [address] Cal Jernigan MD [address] [place], [place] [address] 07/21/2024 1:45 PM EDT Office Visit Hematology/Oncology [facility] [place] [address] [place], [place] [phone] Dakota Armando MD [address] [place] [address] 07/24/2024 11:40 AM EDT Office Visit Family [facility] [address] [place] [address] Sergio Barriga MD [address] [place] [address] Scheduled Procedures Name Priority Associated Diagnoses Date/Ti [...] encounter Medical Devices Implanted Type Area Data Analyst Etl Developer Device Identifier Shelf Expiration Date Model / Serial / Lot Duraclip 16mm Xlg Repostn - [id number] Implanted:Qty : 1 on 07/17/2021 by Guillermo Jones DO at [facility] [employer] [id number] 01/10/2024 [id number] / / [id number] Stent Viabil Biliary [id number] - [id number] Implanted:Qty : 1 on 07/17/2021 by Guillermo Jones DO at [facility] [employer] [id number] 03/04/2024 [id number] / [id number] / [id number] Port Implant W/8f Poly Cath - [id number] Implanted:Qty : 1 on 09/13/2023 by Gary Rodriguez DO at OR [facility] Right: Chest CR BARD : PERIPHERAL VASCULAR [id number] 04/24/2025 [id number] / / [id number] documented as of this encounter Visit Diagnoses [...] Documents on File Type Date Recorded Patient Cotton Factor Expl anation Advance Directives and Living Will 10/23/2022 4:43 PM Virginie Cramer KarYonasibhartLivingWiyonas .PDF Latest Code Status on File Code Status Date Activated Date Inactivated Comments Full Code 07/16/2021 10:04 AM 07/18/2021 6:28 PM This order reflects the patients wishes and were consensually agreed upon. Healthcare Agents on File Name Relationship Healthcare Agent Relationship Communication Virginie Cramer Spouse Health Care Agen t (per Health Care Power of Computer Systems Software Architect document) [email or web address] Temo Mara Sibling First Alternate Health Care Agent (per Health Care Power of Computer Systems Software Architect document) [email or web address] Care Teams Metal Roofing Mechanic Relationship Specialty Start Date End Date Sergio Barriga MD [address] [address] PCP - General Family Medicine 08/07/19 documented as of this encounter
--- OUTSIDE RECORDS SUMMARY | 2024-04-19 | External Medical Summary | Summary of Care ---
Author Name Unknown Organization [facility] Address [address] [place] [address] Phone [phone] Care Team Providers Care Charge Loader Name Role Phone Sergio Barriga MD Primary Care Provider + Reason for Visit * Reason Comments Chemotherapy FOLFIRINOX C5D1 * Episode Based Medications (Routine) - Authorized Specialty Diagnoses / Procedures Referred By Linda hu Referred To Contact Diagnoses Encounter for antineoplastic chemotherapy 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) 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) Procedures IL LEUCOVORIN CALCIUM INJECTION IL FLUOROURACIL INJECTION IL IRINOTECAN INJECTION IL OXALIPLATIN IL FOSAPREPITANT INJECTION BEVACIZUMAB-BVZR, BIOSIMILAR, 10 MG (ZIRABEV), IV IL INJECTION, UDENYCA 0.5 MG [place] Armando MD [address] [employer], [place] [address] Anc Hem/Onc Sceneelaine Kimball DEPT CLOSED - 10/08/23 [address] [place] [address] Referral ID Status Reason Start Date Expiration Date V isits Requested Visits Authorized [id number] Authorized 08/30/2023 11/24/2099 999 99 Encounter Details Date Type Department Care Team (Latest Contact Info) Description 12/10/2023 9:00 AM EST Hem/Onc Treatment Hematology/Oncolog y Treatment, [place] [address] [place] [phone] Rehana, Chair 3 Hem Onc Scenery [address] [place] [address] Encounter for antineoplastic chemotherapy*; 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); 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) Allergies Active Allergy Reactions Criticality Noted Date Comments Lisinopril Cough Low 08/07/2019 documented as of this encounter (statuses as of 01/19/2024) Medications Medication Sig Dispensed Refills Start Date End Date Status Boost 100 Calorie Smart Oral Liquid Take by mouth. 0 Active Multi Vitamin Daily Oral Tablet Take by mouth. 0 Active Aspirin 81 MG Oral Tablet Delayed Release Take 1 Tablet by mouth in the morning. 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 FM CG-HGBF-NQLLW DIS NEC documented as of this encounter (statuses as of 01/19/2024) Immunizations Name Administration Dates Next Due COVID-19 mRNA, LNP-s, No Pre serve, 2-Dose Series ([employer]) 01/13/2022,07/21/2021,02/01/2021,01/04 COVID-19, MRNA-LNP, 23-24, P F, 30 MCG/0.3 mL, 12 YRS AND ABOVE, IM ([employer]) 09/12/2023 Covid-19, Mrna, Lnp-s, Pf, B ivalent, 30 Mcg, IM, 12 yrs and above ([employer]) 08/16/2022 HEP A - Hepatitis A (Adult [...] Description 01/20/2024 9:10 AM EST Laboratory Laboratory [facility] [place] [address] [place] [phone] Rehana, Lab Sc[address]ery [address] [place] [address] 01/21/2024 9:15 AM EST Hem/Onc Treatment Hematology/Oncology Treatment, [place] [address] [place] [phone] Rehana, Chair 8 Hem Onc [facility] [address] [place] [address] 01/27/2024 11:00 AM EST Imaging Radiology [address] [facility] [address] 02/04/2024 8:45 AM EDT Office Visit Hematology/Oncology [facility] Rehana [place] [address] [place] [phone] Dakota Armando MD [address] [place] [address] 07/20/2024 10:15 AM EDT Office Visit Dermatology [facility] [place] [address] [place] [address] Cal Jernigan MD [address] [place] [address] 07/21/2024 1:45 PM EDT Office Visit Hematology/Oncology [facility] [place] [address] [place] [phone] Dakota Armando MD [address] [place] [address] [place] [address] 07/24/2024 11:40 AM EDT Office Visit Family Practice [facility] [address] [facility] [place] [address] Sergio Barriga MD [address] [place] [address] Scheduled Procedures Name Priority Associated Diagnoses Date/Ti [...] this encounter Medical Devices Implanted Type Area Earth Mover Device Identifier Shelf Expiration Date Model / Serial / Lot Duraclip 16mm Xlg Repostn - [id number] Implanted:Qty : 1 on 07/17/2021 by Guillermo Jones DO at [facility] [employer] REYNALDO [id number] 01/10/2024 [id number] / / [id number] Stent Viabil Biliary [id number] - [id number] Implanted:Qty : 1 on 07/17/2021 by Guillermo Jones DO at [facility] [employer] [id number] 03/04/2024 [id number] / [id number] / [id number] Port Implant W/8f Poly Cath - [id number] Implanted:Qty : 1 on 09/13/2023 by Gary Rodriguez DO at OR [facility] Right: Chest CR BARD : PERIPHERAL VASCULAR [id number] 04/24/2025 [id number] / / [id number] documented as of this encounter Results * (ABNORMAL) CA 19-9 (12/23/2023 9:26 AM EST) CA 19-9 461.2(H) <35.0 U/mL 12/23/2023 6:49 PM EST LABORATORY [facility] Blood Venous blood specimen / Unknown Venipuncture / Unknown 12/23/2023 9:26 AM EST 12/23/2023 9:26 AM EST Dakota Armando MD LAB BLOOD ORDERABLES LAB[facility]ATORY [facility] [address] [place] [address] documented in this encounter Visit [...] Documents on File Type Date Recorded Patient Switch Technician Expl anation Advance Directives and Living Will [...] Agen t (per Health Care Power of Technical Healthcare Consultant document) [email or web address] Temo Bela Sibling First Alternate Health Care Agent (per Health Care Power of Technical Healthcare Consultant document) [email or web address] Care Teams Charge Loader Relationship Specialty Start Date End Date Sergio Barriga MD [address] [place] [address] PCP - General Family Medicine 08/07/19 documented as of this encounter
--- OUTSIDE RECORDS SUMMARY | 2024-04-19 | External Medical Summary | Summary of Care ---
Author Name Unknown Organization [facility] Address [address] [place] [address] Phone [phone] Care Team Providers Care Business Intelligence Reporting Analyst Name Role Phone Sergio Barriga MD [...] Armando MD [address] [employer], [place] [address] Anc Hem/Onc Scene[facility] DEPT CLOSED - 10/08/23 [address] [place] [address] Referral ID Status Reason Start Date Expiration Date V isits Requested Visits Authorized [id number] Authorized 08/30/2023 11/24/2099 999 99 Encounter Details Date Type Department Care Team (Latest Contact Info) Description 12/10/2023 9:00 AM EST Hem/Onc Treatment Hematology/Oncolog y Treatment, [place] [address] [place] [phone] Rehana, Chair 3 Hem Onc Scenery [address] [place] [address] Encounter for antineoplastic chemotherapy*; Metastasis to liver [...] mouth in the morning. 0 Active Pancrelipase (Ihp-Mapc-Naff) 03740-19882 UNIT Oral Capsule Delayed Release Particles (Creon 36045) 2 cap with meals, 1 with larger [...] -19) 10/16/2022 Coronary artery disease invo lving [place] coronary artery of [place] heart without angina pectoris 08/20/2022 Overview: Severe [...] WNL Factor V+heteroqygous. 04/10 colon-Dr Case [facility] 2 polyps 1 tubular adenoma. Kevin 5y 2013 sleep study [facility] WNL [address] Elena [facility] Essential hypertension with goal blood pressure [...] WNL, antiphos lipids WNL Factor V+heteroqygous. FM TI-YCYE-HSTMP DIS NEC documented as of this encounter (statuses as of 01/19/2024) Immunizations Name Administration Dates Next Due COVID-19 mRNA, LNP-s, No Pre serve, 2-Dose Series ([employer]) 01/13/2022,07/21/2021,02/01/2021,01/04 COVID-19, MRNA-LNP, 23-24, P F, 30 MCG/0.3 mL, 12 YRS AND ABOVE, IM ([place]) 09/12/2023 Covid-19, Mrna, Lnp-s, Pf, B ivalent, 30 Mcg, IM, 12 yrs and above ([employer]) 08/16/2022 HEP A - Hepatitis A (Adult [...] Description 01/20/2024 9:10 AM EST Laboratory Laboratory [facility] [place] [address] [place] [phone] Rehana, Lab Scenery [address] [place] [address] 01/21/2024 9:15 AM EST Hem/Onc Treatment Hematology/Oncology Treatment, [place] [address] [place] [phone] Rehana, Chair 8 Hem Onc [facility] [address] [place] [address] 01/27/2024 11:00 AM EST Imaging Radiology [address] 132 [facility] [address] 02/04/2024 8:45 AM EDT Office Visit Hematology/Oncology [facility] Rehana [place] [address] [place] [phone] Dakota Armando MD [address] [place] [address] 07/20/2024 10:15 AM EDT Office Visit Dermatology [facility] [place] [address] [place] [address] Cal Jernigan MD [address] [place] [address] 07/21/2024 1:45 PM EDT Office Visit Hematology/Oncology [facility] [place] [address] [place] [phone] Dakota Armando MD [address] [place] [address] [address] 07/24/2024 11:40 AM EDT Office Visit Family Practice [facility] 132 [facility] [place] [address] Sergio Barriga MD [address] [place] [address] Scheduled Procedures Name Priority Associated Diagnoses Date/Ti [...] this encounter Medical Devices Implanted Type Area Drill Instructor Device Identifier Shelf Expiration Date Model / Serial / Lot Duraclip 16mm Xlg Repostn - [id number] Implanted:Qty : 1 on 07/17/2021 by Guillermo Jones DO at ENDOSCOPY [facility] [employer] REYNALDO [id number] 01/10/2024 [id number] / / [id number] Stent Viabil Biliary [id number] - [id number] Implanted:Qty : 1 on 07/17/2021 by Guillermo Jones DO at ENDOSCOPY [facility] [employer] [id number] 03/04/2024 [id number] / [id number] / [id number] Port Implant W/8f Poly Cath - [id number] Implanted:Qty : 1 on 09/13/2023 by Gary Rodriguez DO at OR [facility] Right: Chest CR BARD : PERIPHERAL VASCULAR [id number] 04/24/2025 [id number] / / [id number] documented as of this encounter Results * (ABNORMAL) CA 19-9 (12/23/2023 9:26 AM EST) CA 19-9 461.2(H) <35.0 U/mL 12/23/2023 6:49 PM EST LABORATORY [facility] Blood Venous blood specimen / Unknown Venipuncture / Unknown 12/23/2023 9:26 AM EST 12/23/2023 9:26 AM EST Dakota Armando MD LAB BLOOD ORDERABLES LABORATORY [facility] [address] [place] [address] documented in this encounter Visit [...] Documents on File Type Date Recorded Patient Abrasive Grader Expl anation Advance Directives and Living Will [...] Agen t (per Health Care Power of Bowl Turner document) [email or web address] Temo Bela Sibling First Alternate Health Care Agent (per Health Care Power of Bowl Turner document) [email or web address] Business Intelligence Reporting Analyst Relationship Specialty Start Date End Date Sergio Barriga MD [address] [place] [address] PCP - General Family Medicine 08/07/19 documented as of this encounter
--- OUTSIDE RECORDS SUMMARY | 2024-04-19 | External Medical Summary | Summary of Care ---
Author Name Unknown Organization [facility] Address [address] [place] [address] Phone [phone] Care Team Providers Care Dental Receptionist Name Role Phone Sergio Barriga MD Primary Care Provider + Reason for Visit * Reason Comments Chemotherapy FOLFIRINOX C5D1 * Episode Based Medications (Routine) - Authorized Specialty Diagnoses / Procedures Referred By Linda hu Referred To Contact Diagnoses Encounter for antineoplastic chemotherapy 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) 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) Procedures CA LEUCOVORIN CALCIUM INJECTION CA FLUOROURACIL INJECTION CA IRINOTECAN INJECTION CA OXALIPLATIN CA FOSAPREPITANT INJECTION BEVACIZUMAB-BVZR, BIOSIMILAR, 10 MG (ZIRABEV), IV CA INJECTION, UDENYCA 0.5 MG Dakota Armando MD [address] [employer], [place] [address] Anc Hem/Onc Scene[facility]aine Kim[facility] DEPT CLOSED - 10/08/23 [address] [place] [address] Referral ID Status Reason Start Date Expiration Date V isits Requested Visits Authorized [id number] Authorized 08/30/2023 11/24/2099 999 99 Encounter Details Date Type Department Care Team (Latest Contact Info) Description 12/10/2023 9:00 AM EST Hem/Onc Treatment Hematology/Oncolog y Treatment, [place] [address] [place] [phone] Rehana, Chair 3 Hem Onc Scenery [address] [place] [address] Encounter for antineoplastic chemotherapy*; Metastasis to liver [...] mouth in the morning. 0 Active Pancrelipase (Adi-Zjva-Ifdu) 29811-[address] UNIT Oral Capsule Delayed Release Particles (Creon 90270) 2 cap with meals, 1 with larger [...] -19) 10/16/2022 Coronary artery disease invo lving [place] coronary artery of [place] heart without angina pectoris 08/20/2022 Overview: Severe [...] WNL, antiphos lipids WNL Factor V+heteroqygous. FM OP-ESNF-MCZXG DIS NEC documented as of this encounter (statuses as of 01/19/2024) Immunizations Name Administration Dates Next Due COVID-19 mRNA, LNP-s, No Pre serve, 2-Dose Series ([employer]) 01/13/2022,07/21/2021,02/01/2021,01/04 COVID-19, MRNA-LNP, 23-24, P F, 30 MCG/0.3 mL, 12 YRS AND ABOVE, IM ([email or web address]) 09/12/2023 Covid-19, Mrna, Lnp-s, Pf, B ivalent, 30 Mcg, IM, 12 yrs and above ([employer]) 08/16/2022 HEP A - Hepatitis A [...] 01/20/2024 9:10 AM EST Laboratory Laboratory [facility] [place] [address] [place] [phone] Rehana, Lab Scenery [address] [place] [address] 01/21/2024 9:15 AM EST Hem/Onc Treatment Hematology/Oncology Treatment, [place] [address] [place] [phone] Rehana, Chair 8 Hem Onc [facility] [address] [place] [address] 01/27/2024 11:00 AM EST Imaging Radiology [address] 132 [facility] [address] 02/04/2024 8:45 AM EDT Office Visit Hematology/Oncology [facility] Rehana [place] [address] [place] [phone] Dakota Armando MD [address] [place] [address] 07/20/2024 10:15 AM EDT Office Visit Dermatology [facility] [place] [address] [place] [address] Cal Jernigan MD [address] [place] [address] 07/21/2024 1:45 PM EDT Office Visit Hematology/Oncology [facility] [place] [address] [place] [phone] Dakota Armando MD [address] [place] [address] [address] 07/24/2024 11:40 AM EDT Office Visit Family Practice [facility] 132 [facility] [place] [address] Sergio Barriga MD [address] [place] [address] Scheduled Procedures Name Priority Associated Diagnoses Date/Ti [...] this encounter Medical Devices Implanted Type Area Mitten Sewer Device Identifier Shelf Expiration Date Model / Serial / Lot Duraclip 16mm Xlg Repostn - [id number] Implanted:Qty : 1 on 07/17/2021 by Guillermo Jones DO at [place] [facility] [employer] REYNALDO [id number] 01/10/2024 [id number] / / [id number] Stent Viabil Biliary 66ido3qg - [id number] Implanted:Qty : 1 on 07/17/2021 by Guillermo Jones DO at [place]OSCOPY [facility] [employer] [id number] 03/04/2024 [id number] / [id number] / [id number] Port Implant W/8f Poly Cath - [id number] Implanted:Qty : 1 on 09/13/2023 by Gary Rodriguez DO at OR [facility] Right: Chest CR BARD : PERIPHERAL VASCULAR [id number] 04/24/2025 [id number] / / [id number] documented as of this encounter Results * (ABNORMAL) CA 19-9 (12/23/2023 9:26 AM EST) CA 19-9 461.2(H) <35.0 U/mL 12/23/2023 6:49 PM EST LABORATORY [facility] Blood Venous blood specimen / Unknown Venipuncture / Unknown 12/23/2023 9:26 AM EST 12/23/2023 9:26 AM EST Dakota Armando MD LAB BLOOD ORDERABLES LAB[facility]ATORY [facility] [address] [place] [address] documented in this encounter Visit [...] Documents on File Type Date Recorded Patient Solder Deposit Operator Expl anation Advance Directives and Living [...] Agen t (per Health Care Power of Video News Editor document) [email or web address] Temo Bela Sibling First Alternate Health Care Agent (per Health Care Power of Video News Editor document) [email or web address] Now Care Teams Dental Receptionist Relationship Specialty Start Date End Date Sergio Barriga MD [address] [place] [address] PCP - General Family Medicine 08/07/19 documented as of this encounter
--- OUTSIDE RECORDS SUMMARY | 2024-04-19 | External Medical Summary | Summary of Care ---
Author Name Unknown Organization [facility] Address [address] [place] [address] Phone [phone] Care Team Providers Care Rat Trapper Name Role Phone Sergio Barriga MD Primary Care Provider + Reason for Visit * Reason Comments Chemotherapy FOLFIRINOX C5D1 * Episode Based Medications (Routine) - Authorized Specialty Diagnoses / Procedures Referred By Linda hu Referred To Contact Diagnoses Encounter for antineoplastic chemotherapy 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) 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) Procedures SD LEUCOVORIN CALCIUM INJECTION SD FLUOROURACIL INJECTION SD IRINOTECAN INJECTION SD OXALIPLATIN SD FOSAPREPITANT INJECTION BEVACIZUMAB-BVZR, BIOSIMILAR, 10 MG (ZIRABEV), IV SD INJECTION, UDENYCA 0.5 MG Dakota Armando MD [address] [employer], [place] [address] Anc Hem/Onc Sceneelaine Kimball DEPT CLOSED - 10/08/23 [address] [place] [address] Referral ID Status Reason Start Date Expiration Date V isits Requested Visits Authorized [id number] Authorized 08/30/2023 11/24/2099 999 99 Encounter Details Date Type Department Care Team (Latest Contact Info) Description 12/10/2023 9:00 AM EST Hem/Onc Treatment Hematology/Oncolog y Treatment, [place] [address] [place] [phone] Rehana, Chair 3 Hem Onc Scenery [address] [place] [address] Encounter for antineoplastic chemotherapy*; Metastasis to liver [...] mouth in the morning. 0 Active Pancrelipase (Rgv-Eyma-Jnod) [address] UNIT Oral Capsule Delayed Release Particles (Creon 46617) 2 cap with meals, 1 with larger [...] -19) 10/16/2022 Coronary artery disease invo lving [place] coronary artery of [place] heart without angina pectoris 08/20/2022 Overview: Severe [...] lipids WNL Factor V+heteroqygous. 04/10 colon-Dr Case [facility] 2 polyps 1 tubular adenoma. Kevin 5y 2013 sleep study [facility] WNL [address] Elena [facility] Essential hypertension with goal [...] WNL, antiphos lipids WNL Factor V+heteroqygous. FM TA-QYQQ-LYAWG DIS NEC documented as of this encounter (statuses as of 01/20/2024) Immunizations Name Administration Dates Next Due COVID-19 mRNA, LNP-s, No Pre serve, 2-Dose Series (Qwenty) 01/13/2022,07/21/2021,02/01/2021,01/04 COVID-19, MRNA-LNP, 23-24, P F, 30 MCG/0.3 mL, 12 YRS AND ABOVE, IM ([facility]) 09/12/2023 Covid-19, Mrna, Lnp-s, Pf, B ivalent, 30 Mcg, IM, 12 yrs and above ([employer]wenty) 08/16/2022 HEP A - Hepatitis A (Adult [...] Description 01/20/2024 9:10 AM EST Laboratory Laboratory [facility] [place] [address] [place] [phone] Rehana, Lab Scenery [address] [place] [address] 01/21/2024 9:15 AM EST Hem/Onc Treatment Hematology/Oncology Treatment, [place] [address] [place] [phone] Rehana, Chair 8 Hem Onc [facility] [address] [place] [address] 01/27/2024 11:00 AM EST Imaging Radiology [address] 132 [facility] [address] 02/04/2024 8:45 AM EDT Office Visit Hematology/Oncology [facility] Rehana [place] [address] [place] [phone] Dakota Armando MD [address] [place] [address] 07/20/2024 10:15 AM EDT Office Visit Dermatology [facility] [place] [address] [place] [address] Cal Jernigan MD [address] [place] [address] 07/21/2024 1:45 PM EDT Office Visit Hematology/Oncology [facility] [place] [address] [place] [phone] Dakota Armando MD [address] [place] [address] [address] 07/24/2024 11:40 AM EDT Office Visit Family Practice [facility] 132 [facility] [place] [address] Sergio Barriga MD [address] [place] [address] Scheduled Procedures Name Priority Associated Diagnoses Date/Ti [...] this encounter Medical Devices Implanted Type Area Residential Service Technician Device Identifier Shelf Expiration Date Model / Serial / Lot Duraclip 16mm Xlg Repostn - [id number] Implanted:Qty : 1 on 07/17/2021 by Guillermo Jones DO at ENDOSCOPY [facility] [employer] [place] [id number] 01/10/2024 [id number] / / [id number] Stent Viabil Biliary 08epw0rq - [id number] Implanted:Qty : 1 on 07/17/2021 by Guillermo Jones DO at ENDOSCOPY [facility] [email or web address] [id number] 03/04/2024 [id number] / [id number] / [id number] Port Implant W/8f Poly Cath - [id number] Implanted:Qty : 1 on 09/13/2023 by Gary Rodriguez DO at OR [facility] Right: Chest CR BARD : PERIPHERAL VASCULAR [id number] 04/24/2025 [id number] / / [id number] documented as of this encounter Results * (ABNORMAL) CA 19-9 (12/23/2023 9:26 AM EST) CA 19-9 461.2(H) <35.0 U/mL 12/23/2023 6:49 PM EST LABORATORY [facility] Blood Venous blood specimen / Unknown Venipuncture / Unknown 12/23/2023 9:26 AM EST 12/23/2023 9:26 AM EST Dakota Armando MD LAB BLOOD ORDERABLES LABORATORY [facility] 100 [place] [address] documented in this encounter Visit [...] on File Type Date Recorded Patient Associate Loan Officer Expl anation Advance Directives and Living [...] Agen t (per Health Care Power of Software Intern document) [email or web address] Temo Bela Sibling First Alternate Health Care Agent (per Health Care Power of Software Intern document) [email or web address] Care Teams Rat Trapper Relationship Specialty Start Date End Date Sergio Barriga MD [address] [place] [address] PCP - General Family Medicine 08/07/19 documented as of this encounter
--- OUTSIDE RECORDS SUMMARY | 2024-04-19 | External Medical Summary | Summary of Care ---
Author Name Unknown Organization [facility] Address [address] [place] [address] Phone [phone] Care Team Providers Care Gas Main Fitter Name Role Phone Sergio Barriga MD Primary Care Provider + Reason for Visit * Reason Comments Chemotherapy FOLFIRINOX C5D1 * Episode Based Medications (Routine) - Authorized Specialty Diagnoses / Procedures Referred By Linda hu Referred To Contact Diagnoses Encounter for antineoplastic chemotherapy 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) 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) Procedures [place] LEUCOVORIN CALCIUM INJECTION [place] FLUOROURACIL INJECTION WA IRINOTECAN INJECTION WA OXALIPLATIN [place] FOSAPREPITANT INJECTION BEVACIZUMAB-BVZR, BIOSIMILAR, 10 MG (ZIRABEV), IV [place] INJECTION, UDENYCA 0.5 MG Dakota Armando MD [address] [employer], [place] [address] Anc Hem/Onc Sceneelaine Kimball DEPT CLOSED - 10/08/23 [address] [place] [address] Referral ID Status Reason Start Date Expiration Date V isits Requested Visits Authorized [id number] Authorized 08/30/2023 11/24/2099 999 99 Encounter Details Date Type Department Care Team (Latest Contact Info) Description 12/10/2023 9:00 AM EST Hem/Onc Treatment Hematology/Oncolog y Treatment, [place] [address] [place] [phone] Rehana, Chair 3 Hem Onc Scenery [address] [place] [address] Encounter for antineoplastic chemotherapy*; Metastasis to liver [...] mouth in the morning. 0 Active Pancrelipase (Xbm-Wgod-Peli) [address]1556-[address]99[address] UNIT Oral Capsule Delayed Release Particles (Creon 84553) 2 cap with meals, 1 with larger [...] WNL, antiphos lipids WNL Factor V+heteroqygous. FM TL-MVJF-VEUDB DIS NEC documented as of this encounter (statuses as of 01/19/2024) Immunizations Name Administration Dates Next Due COVID-19 mRNA, LNP-s, No Pre serve, 2-Dose Series ([employer]) 01/13/2022,07/21/2021,02/01/2021,01/04 COVID-19, MRNA-LNP, 23-24, P F, 30 MCG/0.3 mL, 12 YRS AND ABOVE, IM ([employer]) 09/12/2023 Covid-19, Mrna, Lnp-s, Pf, B ivalent, 30 Mcg, IM, 12 yrs and above ([employer]) 08/16/2022 HEP A - Hepatitis A (Adult [...] Description 01/20/2024 9:10 AM EST Laboratory Laboratory [facility] [place] [address] [place] [phone] Rehana, Lab Scenery [address] [place] [address] 01/21/2024 9:15 AM EST Hem/Onc Treatment Hematology/Oncology Treatment, [place] [address] [place] [phone] Rehana, Chair 8 Hem Onc [facility] [address] [place] [address] [address] 01/27/2024 11:00 AM EST Imaging Radiology [address] 132 [facility] [address] 02/04/2024 8:45 AM EDT Office Visit Hematology/Oncology [facility] Rehana [place] [address] [place] [phone] Dakota Armando MD [address] [place] [address] 07/20/2024 10:15 AM EDT Office Visit Dermatology [facility] [place] [address] [place] [address] Cal Jernigan MD [address] [place] [address] 07/21/2024 1:45 PM EDT Office Visit Hematology/Oncology [facility] [place] [address] [place] [phone] Dakota Armando MD [address] [place] [address] [address] 07/24/2024 11:40 AM EDT Office Visit Family Practice [facility] 132 [facility] [place] [address] Sergio Barriga MD [address] [place] [address] Scheduled Procedures Name Priority Associated Diagnoses Date/Ti [...] this encounter Medical Devices Implanted Type Area Stallion Manager Device Identifier Shelf Expiration Date Model / Serial / Lot Duraclip 16mm Xlg Repostn - [id number] Implanted:Qty : 1 on 07/17/2021 by Guillermo Jones DO at [place] [facility] [place] [employer] REYNALDO [id number] 01/10/2024 [id number] / / [id number] Stent Viabil Biliary 72htp5fg - [id number] Implanted:Qty : 1 on 07/17/2021 by Guillermo Jones DO at ENDOSCOPY [facility] [place] [employer] [id number] 03/04/2024 [id number] / [id number] / [id number] Port Implant W/8f Poly Cath - [id number] Implanted:Qty : 1 on 09/13/2023 by Gary Rodriguez DO at OR [facility] Right: Chest CR BARD : PERIPHERAL VASCULAR [id number] 04/24/2025 [id number] / / [id number] documented as of this encounter Results * (ABNORMAL) CA 19-9 (12/23/2023 9:26 AM EST) CA 19-9 461.2(H) <35.0 U/mL 12/23/2023 6:49 PM EST LABORATORY [facility] Blood Venous blood specimen / Unknown Venipuncture / Unknown 12/23/2023 9:26 AM EST 12/23/2023 9:26 AM EST Dakota Armando MD LAB BLOOD ORDERABLES LABORATORY [facility] [address] [place] [address] documented in this encounter Visit [...] Documents on File Type Date Recorded Patient Vice President Education Expl anation Advance Directives and Living Will [...] t (per Health Care Power of Tape Editor document) [email or web address] Temo Bela Sibling First Alternate Health Care Agent (per Health Care Power of Tape Editor document) [email or web address] Care Teams Gas Main Fitter Relationship Specialty Start Date End Date Sergio Barriga MD [address] [place] [address] PCP - General Family Medicine 08/07/19 documented as of this encounter
--- OUTSIDE RECORDS SUMMARY | 2024-04-19 | External Medical Summary | Summary of Care ---
Author Name Unknown Organization [facility] Address [address] [place] [address] Phone [phone] Care Team Providers Care Finishing Area Supervisor Name Role Phone Sergio Barriga MD Primary Care Provider + Reason for Visit * Reason Comments Chemotherapy FOLFIRINOX C5D1 * Episode Based Medications (Routine) - Authorized Specialty Diagnoses / Procedures Referred By Linda hu Referred To Contact Diagnoses Encounter for antineoplastic chemotherapy 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) 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) Procedures MO LEUCOVORIN CALCIUM INJECTION MO FLUOROURACIL INJECTION MO IRINOTECAN INJECTION MO OXALIPLATIN MO FOSAPREPITANT INJECTION BEVACIZUMAB-BVZR, BIOSIMILAR, 10 MG (ZIRABEV), IV MO INJECTION, UDENYCA 0.5 MG Dakota Armando MD [address] [employer], [place] [address] Anc Hem/Onc Sceneelaine Kimball DEPT CLOSED - 10/08/23 [address] [place] [address] Referral ID Status Reason Start Date Expiration Date V isits Requested Visits Authorized [id number] Authorized 08/30/2023 11/24/2099 999 99 Encounter Details Date Type Department Care Team (Latest Contact Info) Description 12/10/2023 9:00 AM EST Hem/Onc Treatment Hematology/Oncolog y Treatment, [place] [address] [place] [phone] Rehana, Chair 3 Hem Onc Scenery [address] [place] [address] Encounter for antineoplastic chemotherapy*; Metastasis to liver [...] mouth in the morning. 0 Active Pancrelipase (Lpl-Xxml-Yccq) 74136-72934 UNIT Oral Capsule Delayed Release Particles (Creon 11630) 2 cap with meals, 1 with larger [...] -19) 10/16/2022 Coronary artery disease invo lving sun'aq coronary artery of sun'aq heart without angina pectoris 08/20/2022 Overview: Severe [...] lipids WNL Factor V+heteroqygous. 04/10 colon-Dr Case [facility] 2 polyps 1 tubular adenoma. Kevin 5y 2013 sleep study [facility] WNL [address] Elena [facility] Essential hypertension with goal blood pressure less [...] WNL, antiphos lipids WNL Factor V+heteroqygous. FM PC-ULMG-NRZTB DIS NEC documented as of this encounter (statuses as of 01/19/2024) Immunizations Name Administration Dates Next Due COVID-19 mRNA, LNP-s, No Pre serve, 2-Dose Series (PackLink) 01/13/2022,07/21/2021,02/01/2021,01/04 COVID-19, MRNA-LNP, 23-24, P F, 30 MCG/0.3 mL, 12 YRS AND ABOVE, IM (Epic Sciences-Global BioDiagnosticsirVivolux) 09/12/2023 Covid-19, Mrna, Lnp-s, Pf, B ivalent, 30 Mcg, IM, 12 yrs and above (PackLink) 08/16/2022 HEP A - Hepatitis A (Adult [...] 01/20/2024 9:10 AM EST Laboratory Laboratory [facility] [place] [address] [place] [phone] Rehana, Lab Scenery [address] [place] [address] 01/21/2024 9:15 AM EST Hem/Onc Treatment Hematology/Oncology Treatment, [place] [address] [place] [phone] Rehana, Chair 8 Hem Onc [facility] [address] [place] [address] 01/27/2024 11:00 AM EST Imaging Radiology [address] [facility] [address] 02/04/2024 8:45 AM EDT Office Visit Hematology/Oncology [facility] Rehana [place] [address] [place] [phone] Dakota Armando MD [address] [place] [address] 07/20/2024 10:15 AM EDT Office Visit Dermatology [facility] [place] [address] [place] [address] Cal Jernigan MD [address] [place] [address] 07/21/2024 1:45 PM EDT Office Visit Hematology/Oncology [facility] [place] [address] [place] [phone] Dakota Armando MD [address] [place] [address] 07/24/2024 11:40 AM EDT Office Visit Family Practice [facility] 132 [facility] [place] [address] Sergio Barriga MD [address] [place] [address] Scheduled Procedures Name Priority Associated Diagnoses Date/Ti [...] this encounter Medical Devices Implanted Type Area Airfreight Operations Agent Device Identifier Shelf Expiration Date Model / Serial / Lot Duraclip 16mm Xlg Repostn - [id number] Implanted:Qty : 1 on 07/17/2021 by Guillermo Jones DO at [place]OSCOPY [facility] ttwick REYNALDO [id number] 01/10/2024 [id number] / / [id number] Stent Viabil Biliary 07scu7ge - [id number] Implanted:Qty : 1 on 07/17/2021 by Guillermo Jones DO at ENDOSCOPY [facility] [employer] [id number] 03/04/2024 [id number] / [id number] / [id number] Port Implant W/8f Poly Cath - [id number] Implanted:Qty : 1 on 09/13/2023 by Gary Rodriguez DO at OR [facility] Right: Chest CR BARD : PERIPHERAL VASCULAR [id number] 04/24/2025 [id number] / / [id number] documented as of this encounter Results * (ABNORMAL) CA 19-9 (12/23/2023 9:26 AM EST) CA 19-9 461.2(H) <35.0 U/mL 12/23/2023 6:49 PM EST LABORATORY [facility] Blood Venous blood specimen / Unknown Venipuncture / Unknown 12/23/2023 9:26 AM EST 12/23/2023 9:26 AM EST Dakota Armando MD LAB BLOOD ORDERABLES LAB[facility]ATORY [facility] [address] [place] [address] documented in this encounter Visit [...] Documents on File Type Date Recorded 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
--- OUTSIDE RECORDS SUMMARY | 2024-04-19 00:01 | External Medical Summary | Summary of Care ---
Author Name Unknown Organization [facility] Address [address] [place] [address] Phone [phone] Care Team Providers Care Respiratory Therapist Name Role Phone Sergio Barriga MD [...] Armando MD [address] [employer], [place] [address] Anc Hem/Onc Sceneelaine Kimball DEPT CLOSED - 10/08/23 [address] [place] [address] Referral ID Status Reason Start Date Expiration Date V isits Requested Visits Authorized [id number] Authorized 08/30/2023 11/24/2099 999 99 Encounter Details Date Type Department Care Team (Latest Contact Info) Description 12/10/2023 9:00 AM EST Hem/Onc Treatment Hematology/Oncolog y Treatment, [place] [address] [place] [phone] Rehana, Chair 3 Hem Onc Scenery [address] [place] [address] Encounter for antineoplastic chemotherapy*; Metastasis to liver [...] mouth in the morning. 0 Active Pancrelipase (Deu-Mqua-Eotp) 82924-46819 UNIT Oral Capsule Delayed Release Particles (Creon 51436) 2 cap with meals, 1 with larger [...] WNL, antiphos lipids WNL Factor V+heteroqygous. FM KT-NMCF-JWWJY DIS NEC documented as of this encounter (statuses as of 01/19/2024) Immunizations Name Administration Dates Next Due COVID-19 mRNA, LNP-s, No Pre serve, 2-Dose Series (Vascular Closure) 01/13/2022,07/21/2021,02/01/2021,01/04 COVID-19, MRNA-LNP, 23-24, P F, 30 MCG/0.3 mL, 12 YRS AND ABOVE, IM (Care Team Connect-[email or web address]-[email or web address]) 09/12/2023 Covid-19, Mrna, Lnp-s, Pf, B ivalent, 30 Mcg, IM, 12 yrs and above (Vascular Closure) 08/16/2022 HEP A - Hepatitis A (Adult [...] Description 01/20/2024 9:10 AM EST Laboratory Laboratory [facility] [place] [address] [place] [phone] Rehana, Lab Scenery [address] [place] [address] 01/21/2024 9:15 AM EST Hem/Onc Treatment Hematology/Oncology Treatment, [place] [address] [place] [phone] Rehana, Chair 8 Hem Onc [facility] [address] [address] 01/27/2024 11:00 AM EST Imaging Radiology [address] [facility] [address] 02/04/2024 8:45 AM EDT Office Visit Hematology/Oncology [facility] Rehana [place] [address] [place] [phone] Dakota Armando MD [address] [place] [address] 07/20/2024 10:15 AM EDT Office Visit Dermatology [facility] [place] [address] [place] [address] Cal Jernigan MD [address] [place] [address] 07/21/2024 1:45 PM EDT Office Visit Hematology/Oncology [facility] [place] [address] [place] [phone] Dakota Armando MD [address] [place] [address] [address] 07/24/2024 11:40 AM EDT Office Visit Family Practice [facility] 132 [facility] [place] [address] Sergio Barriga MD [address] [place] [address] Scheduled Procedures Name Priority Associated Diagnoses Date/Ti [...] this encounter Medical Devices Implanted Type Area Mold Finisher Device Identifier Shelf Expiration Date Model / Serial / Lot Duraclip 16mm Xlg Repostn - [id number] Implanted:Qty : 1 on 07/17/2021 by Guillermo Jones DO at ENDOSCOPY [facility] [employer] REYNALDO [id number] 01/10/2024 [id number] / / [id number] Stent Viabil Biliary 76tve5ht - [id number] Implanted:Qty : 1 on 07/17/2021 by Guillermo Jones DO at ENDOSCOPY [facility] Akosha [id number] 03/04/2024 [id number] / [id number] / [id number] Port Implant W/8f Poly Cath - [id number] Implanted:Qty : 1 on 09/13/2023 by Gary Rodriguez DO at OR [facility] Right: Chest CR BARD : PERIPHERAL VASCULAR [id number] 04/24/2025 [id number] / / [id number] documented as of this encounter Results * (ABNORMAL) CA 19-9 (12/23/2023 9:26 AM EST) CA 19-9 461.2(H) <35.0 U/mL 12/23/2023 6:49 PM EST LABORATORY [facility] Blood Venous blood specimen / Unknown Venipuncture / Unknown 12/23/2023 9:26 AM EST 12/23/2023 9:26 AM EST Dakota Armando MD LAB BLOOD ORDERABLES LABORATORY [facility] [address] [place] [address] documented in this encounter Visit [...] Documents on File Type Date Recorded Patient Clam Shucker Expl anation Advance Directives and Living Will [...] Agen t (per Health Care Power of Dry Chain Operator document) [email or web address] Temo Bela Sibling First Alternate Health Care Agent (per Health Care Power of Dry Chain Operator document) [email or web address] Care Teams Respiratory Therapist Relationship Specialty Start Date End Date Sergio Barriga MD [address] [place] [address] PCP - General Family Medicine 08/07/19 documented as of this encounter
--- OUTSIDE RECORDS SUMMARY | 2024-04-19 00:01 | External Medical Summary | Summary of Care ---
Author Name Unknown Organization [facility] Address [address] [place] [address] Phone [phone] Care Team Providers Care Community Education Coordinator Name Role Phone Sergio Barriga MD Primary Care Provider + Reason for Visit * Reason Comments Chemotherapy FOLFIRINOX C5D1 * Episode Based Medications (Routine) - Authorized Specialty Diagnoses / Procedures Referred By Linda hu Referred To Contact Diagnoses Encounter for antineoplastic chemotherapy 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) 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) Procedures VT LEUCOVORIN CALCIUM INJECTION VT FLUOROURACIL INJECTION VT IRINOTECAN INJECTION VT OXALIPLATIN VT FOSAPREPITANT INJECTION BEVACIZUMAB-BVZR, BIOSIMILAR, 10 MG (ZIRABEV), IV VT INJECTION, UDENYCA 0.5 MG Dakota Armando MD [address] [employer], [place] [address] Anc Hem/Onc Sceneelaine Kimball DEPT CLOSED - 10/08/23 [address] [place] [address] Referral ID Status Reason Start Date Expiration Date V isits Requested Visits Authorized [id number] Authorized 08/30/2023 11/24/2099 999 99 Encounter Details Date Type Department Care Team (Latest Contact Info) Description 12/10/2023 9:00 AM EST Hem/Onc Treatment Hematology/Oncolog y Treatment, [place] [address] [place] [phone] Rehana, Chair 3 Hem Onc Scenery [address] [place] [address] Encounter for antineoplastic chemotherapy*; Metastasis to liver [...] mouth in the morning. 0 Active Pancrelipase (Whg-Jpaf-Kmud) 79142-57247 UNIT Oral Capsule Delayed Release Particles (Creon 48151) 2 cap with meals, 1 with larger [...] 04/10 colon-Dr Case [facility] 2 polyps 1 tubular adenoma. Kevin 6y 2013 sleep study [facility] WNL [address] Elena [facility] Essential hypertension with goal blood pressure less [...] WNL, antiphos lipids WNL Factor V+heteroqygous. FM LK-TURV-MARFI DIS NEC documented as of this encounter (statuses as of 01/19/2024) Immunizations Name Administration Dates Next Due COVID-19 mRNA, LNP-s, No Pre serve, 2-Dose Series (InstallFree) 01/13/2022,07/21/2021,02/01/2021,01/04 COVID-19, MRNA-LNP, 23-24, P F, 30 MCG/0.3 mL, 12 YRS AND ABOVE, IM (InteliVideo-ganttoirZikBit) 09/12/2023 Covid-19, Mrna, Lnp-s, Pf, B ivalent, 30 Mcg, IM, 12 yrs and above (InstallFree) 08/16/2022 HEP A - Hepatitis A (Adult [...] adverse side effects during treatment. * Jing Bary RN - 12/10/2023 10:20 AM EST Chair [...] Description 01/20/2024 9:10 AM EST Laboratory Laboratory [facility] [place] [address] [place] [phone] Rehana, Lab Scenery [address] [place] [address] 01/21/2024 9:15 AM EST Hem/Onc Treatment Hematology/Oncology Treatment, [place] [address] [place] [phone] Rehana, Chair 8 Hem Onc [facility] [address] [place] [address] 01/27/2024 11:00 AM EST Imaging Radiology [address] 132 [facility] [address] 02/04/2024 8:45 AM EDT Office Visit Hematology/Oncology [facility] Rehana [place] [address] [place] [phone] Dakota Armando MD [address] [place] [address] 07/20/2024 10:15 AM EDT Office Visit Dermatology [facility] [place] [address] [place] [address] Cal Jernigan MD [address] [place] [address] 07/21/2024 1:45 PM EDT Office Visit Hematology/Oncology [facility] [place] [address] [place] [phone] Dakota Armando MD [address] [address] 07/24/2024 11:40 AM EDT Office Visit Family Practice [facility] 132 [facility] [place] [address] Sergio Barriga MD [address] [place] [address] Scheduled Procedures Name Priority Associated Diagnoses Date/Ti [...] this encounter Medical Devices Implanted Type Area High Worker Device Identifier Shelf Expiration Date Model / Serial / Lot Duraclip 16mm Xlg Repostn - [id number] Implanted:Qty : 1 on 07/17/2021 by Guillermo Jones DO at ENDOSCOPY [facility] REYNALDO [id number] 01/10/2024 [id number] / / [id number] Stent Viabil Biliary 73vxv1ti - [id number] Implanted:Qty : 1 on 07/17/2021 by Guillermo Jones DO at ENDOSCOPY [facility] [employer]olve[employer]ol [id number] 03/04/2024 [id number] / [id number] / [id number] Port Implant W/8f Poly Cath - [id number] Implanted:Qty : 1 on 09/13/2023 by Gary Rodriguez DO at OR [facility] Right: Chest CR BARD : PERIPHERAL VASCULAR [id number] 04/24/2025 [id number] / / [id number] documented as of this encounter Results * (ABNORMAL) CA 19-9 (12/23/2023 9:26 AM EST) CA 19-9 461.2(H) <35.0 U/mL 12/23/2023 6:49 PM EST LABORATORY [facility] Blood Venous blood specimen / Unknown Venipuncture / Unknown 12/23/2023 9:26 AM EST 12/23/2023 9:26 AM EST Dakota Armando MD LAB BLOOD ORDERABLES LABORATORY [facility] [address] [place] [address] documented in this encounter Visit [...] on File Type Date Recorded Patient Supervisor Sulfuric Acid Plant Expl anation Advance Directives and Living Will [...] Agen t (per Health Care Power of Driver Salesman document) [email or web address] Temo Bela Sibling First Alternate Health Care Agent (per Health Care Power of Driver Salesman document) [email or web address] Care Teams Community Education Coordinator Relationship Specialty Start Date End Date Sergio Barriga MD [address] [place] [address] [address] PCP - General Family Medicine 08/07/19 documented as of this encounter
--- OUTSIDE RECORDS SUMMARY | 2024-04-19 00:01 | External Medical Summary | Summary of Care ---
Author Name Unknown Organization [facility] Address [address] [place] [address] Phone [phone] Care Team Providers Care Die Caster Name Role Phone Sergio Barriga MD Primary [...] Armando MD [address] [employer], [place] [address] Anc Hem/Onc Sceneelaine Kimball DEPT CLOSED - 10/08/23 [address] [place] [address] Referral ID Status Reason Start Date Expiration Date V isits Requested Visits Authorized [id number] Authorized 08/30/2023 11/24/2099 999 99 Encounter Details Date Type Department Care Team (Latest Contact Info) Description 12/10/2023 9:00 AM EST Hem/Onc Treatment Hematology/Oncolog y Treatment, [place] [address] [place] [phone] Rehana, Chair 3 Hem Onc Scenery [address] [place] [address] Encounter for antineoplastic chemotherapy*; Metastasis to liver [...] mouth in the morning. 0 Active Pancrelipase (Eyb-Bnhc-Ppnc) [address]8461-[address] UNIT Oral Capsule Delayed Release Particles (Creon 89489) 2 cap with meals, 1 with larger [...] lipids WNL Factor V+heteroqygous. 04/10 colon-Dr Case [facility] 2 polyps 1 tubular adenoma. Kevin 5y 2013 sleep study [facility] WNL [address] Elena [facility] Essential hypertension with goal blood [...] WNL, antiphos lipids WNL Factor V+heteroqygous. FM YG-VNAA-BHQTI DIS NEC documented as of this encounter (statuses as of 01/19/2024) Immunizations Name Administration Dates Next Due COVID-19 mRNA, LNP-s, No Pre serve, 2-Dose Series (Tizra) 01/13/2022,07/21/2021,02/01/2021,01/04 COVID-19, MRNA-LNP, 23-24, P F, 30 MCG/0.3 mL, 12 YRS AND ABOVE, IM (Calleoo-M2M SolutionirThe FeedRoom) 09/12/2023 Covid-19, Mrna, Lnp-s, Pf, B ivalent, 30 Mcg, IM, 12 yrs and above (Tizra) 08/16/2022 HEP A - Hepatitis A (Adult [...] Description 01/20/2024 9:10 AM EST Laboratory Laboratory [facility] [place] [address] [place] [phone] Rehana, Lab Scenery [address] [place] [address] 01/21/2024 9:15 AM EST Hem/Onc Treatment Hematology/Oncology Treatment, [place] [address] [place] [phone] Rehana, Chair 8 Hem Onc [facility] [address] [address] 01/27/2024 11:00 AM EST Imaging Radiology [address] 132 [facility] [address] 02/04/2024 8:45 AM EDT Office Visit Hematology/Oncology [facility] Rehana [place] [address] [place] [phone] Dakota Armando MD [address] [place] [address] 07/20/2024 10:15 AM EDT Office Visit Dermatology [facility] [place] [address] [place] [address] Cal Jernigan MD [address] [place] [address] 07/21/2024 1:45 PM EDT Office Visit Hematology/Oncology [facility] [place] [address] [place] [phone] Dakota Armando MD [address] [place] [address] [place] [address] 07/24/2024 11:40 AM EDT Office Visit Family Practice [facility] 132 [facility] [place] [address] Sergio Barriga MD [address] [place] [address] Scheduled Procedures Name Priority Associated Diagnoses Date/Ti [...] this encounter Medical Devices Implanted Type Area Java Front End Web Developer Device Identifier Shelf Expiration Date Model / Serial / Lot Duraclip 16mm Xlg Repostn - [id number] Implanted:Qty : 1 on 07/17/2021 by Guillermo Jones DO at ENDOSCOPY [facility] [employer] REYNALDO [id number] 01/10/2024 [id number] / / [id number] Stent Viabil Biliary 87pts2wo - [id number] Implanted:Qty : 1 on 07/17/2021 by Guillermo Jones DO at ENDOSCOPY [facility] Lynk [id number] 03/04/2024 [id number] / [id number] / [id number] Port Implant W/8f Poly Cath - [id number] Implanted:Qty : 1 on 09/13/2023 by Gary Rodriguez DO at OR 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
--- OUTSIDE RECORDS SUMMARY | 2024-04-19 00:01 | External Medical Summary | Summary of Care ---
Author Name Unknown Organization [facility] Address [address] [place] [address] Phone [phone] Care Team Providers Care Automotive Alignment Specialist Name Role Phone Sergio Barriga MD [...] Armando MD [address] [employer], [place] [address] Anc Hem/Onc Sceneelaine [place] DEPT CLOSED - 10/08/23 [address] [place] [address] Referral ID Status Reason Start Date Expiration Date V isits Requested Visits Authorized [id number] Authorized 08/30/2023 11/24/2099 999 99 Encounter Details Date Type Department Care Team (Latest Contact Info) Description 12/10/2023 9:00 AM EST Hem/Onc Treatment Hematology/Oncolog y Treatment, [place] [address] [place] [phone] Rehana, Chair 3 Hem Onc Scenery [address] [place] [address] Encounter for antineoplastic chemotherapy*; Metastasis to liver [...] mouth in the morning. 0 Active Pancrelipase (Tpx-Vzwe-Tfzg) 29375-[address] UNIT Oral Capsule Delayed Release Particles (Creon 52758) 2 cap with meals, 1 with larger [...] -19) 10/16/2022 Coronary artery disease invo lving [place] coronary artery of [place] heart without angina pectoris 08/20/2022 Overview: Severe [...] WNL Factor V+heteroqygous. 04/10 colon-Dr Case [facility] 2 polyps 1 tubular adenoma. Kevin 5y 2013 sleep study [facility] WNL [address] Elena [facility] [...] WNL, antiphos lipids WNL Factor V+heteroqygous. FM YL-CHVT-LELRF DIS NEC documented as of this encounter (statuses as of 01/19/2024) Immunizations Name Administration Dates Next Due COVID-19 mRNA, LNP-s, No Pre serve, 2-Dose Series ([employer] 01/13/2022,07/21/2021,02/01/2021,01/04 COVID-19, MRNA-LNP, 23-24, P F, 30 MCG/0.3 mL, 12 YRS AND ABOVE, IM (tweetTV-OncoTree DTSirFifth Generation Systems) 09/12/2023 Covid-19, Mrna, Lnp-s, Pf, B ivalent, 30 Mcg, IM, 12 yrs and above ([employer] 08/16/2022 HEP A - Hepatitis A (Adult [...] Description 01/20/2024 9:10 AM EST Laboratory Laboratory [facility] [place] [address] [place] [phone] Rehana, Lab Scenery [address] [place] [address] 01/21/2024 9:15 AM EST Hem/Onc Treatment Hematology/Oncology Treatment, [place] [address] [place] [phone] Rehana, Chair 8 Hem Onc [facility] [address] [place] [address] 01/27/2024 11:00 AM EST Imaging Radiology [address] [facility] [address] 02/04/2024 8:45 AM EDT Office Visit Hematology/Oncology [facility] Rehana [place] [address] [place] [phone] Dakota Armando MD [address] [place] [address] 07/20/2024 10:15 AM EDT Office Visit Dermatology [facility] [place] [address] [place] [address] Cal Jernigan MD [address] [place] [address] 07/21/2024 1:45 PM EDT Office Visit Hematology/Oncology [facility] [place] [address] [place] [phone] Dakota Armando MD [address] [place] [address] 07/24/2024 11:40 AM EDT Office Visit Family Practice [facility] 132 [facility] [place] [address] Sergio Barriga MD [address] [place] [address] Scheduled Procedures Name Priority Associated Diagnoses Date/Ti [...] this encounter Medical Devices Implanted Type Area Locomotive Engineer Electric Device Identifier Shelf Expiration Date Model / Serial / Lot Duraclip 16mm Xlg Repostn - [id number] Implanted:Qty : 1 on 07/17/2021 by Guillermo Jones DO [place] [facility] [facility] [employer] REYNALDO [id number] 01/10/2024 [id number] / / [id number] Stent Viabil Biliary [id number] - [id number] Implanted:Qty : 1 on 07/17/2021 by Guillermo Jones DO at [facility] [employer] [id number] 03/04/2024 [id number] / [id number] / [id number] Port Implant W/8f Poly Cath - [id number] Implanted:Qty : 1 on 09/13/2023 by Gary Rodriguez DO at OR [facility] Right: Chest CR BARD : PERIPHERAL VASCULAR [id number] 04/24/2025 [id number] / / [id number] documented as of this encounter Results * (ABNORMAL) CA 19-9 (12/23/2023 9:26 AM EST) CA 19-9 461.2(H) <35.0 U/mL 12/23/2023 6:49 PM EST [facility] Blood Venous blood specimen / Unknown Venipuncture / Unknown 12/23/2023 9:26 AM EST 12/23/2023 9:26 AM EST Dakota Armando MD LAB BLOOD ORDERABLES [facility] [address] [place] [address] documented in this encounter Visit [...] Documents on File Type Date Recorded 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
--- OUTSIDE RECORDS SUMMARY | 2024-04-19 00:01 | External Medical Summary | Summary of Care ---
Author Name Unknown Organization [facility] Address [address] [place] [address] Phone [phone] Care Team Providers Care Aadc Plans Staff Officer Name Role Phone Sergio Barriga MD Primary Care Provider + Reason for Visit * Reason Comments Chemotherapy FOLFIRINOX C5D1 * Episode Based Medications (Routine) - Authorized Specialty Diagnoses / Procedures Referred By Linda hu Referred To Contact Diagnoses Encounter for antineoplastic chemotherapy 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) 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) Procedures FL LEUCOVORIN CALCIUM INJECTION FL FLUOROURACIL INJECTION FL IRINOTECAN INJECTION FL OXALIPLATIN FL FOSAPREPITANT INJECTION BEVACIZUMAB-BVZR, BIOSIMILAR, 10 MG (ZIRABEV), IV FL INJECTION, UDENYCA 0.5 MG Dakota Armando MD [address] [employer], [place] [address] Anc Hem/Onc Sceneelaine Kim[facility] DEPT CLOSED - 10/08/23 [address] [place] [address] Referral ID Status Reason Start Date Expiration Date V isits Requested Visits Authorized [id number] Authorized 08/30/2023 11/24/2099 999 99 Encounter Details Date Type Department Care Team (Latest Contact Info) Description 12/10/2023 9:00 AM EST Hem/Onc Treatment Hematology/Oncolog y Treatment, [place] [address] [place] [phone] Rehana, Chair 3 Hem Onc Scenery [address] [place] [address] Encounter for antineoplastic chemotherapy*; Metastasis to liver [...] mouth in the morning. 0 Active Pancrelipase (Lhf-Wisi-Sybg) 92138-59870 UNIT Oral Capsule Delayed Release Particles (Creon 00636) 2 cap with meals, 1 with larger [...] -19) 10/16/2022 Coronary artery disease invo lving [place] coronary artery of [place] heart without angina pectoris 08/20/2022 Overview: Severe [...] WNL, antiphos lipids WNL Factor V+heteroqygous. FM DQ-AKXM-XJGQE DIS NEC documented as of this encounter (statuses as of 01/19/2024) Immunizations Name Administration Dates Next Due COVID-19 mRNA, LNP-s, No Pre serve, 2-Dose Series ([employer]) 01/13/2022,07/21/2021,02/01/2021,01/04 COVID-19, MRNA-LNP, 23-24, P F, 30 MCG/0.3 mL, 12 YRS AND ABOVE, IM (ConnectToHome-ZestFinanceirOnyvax) 09/12/2023 Covid-19, Mrna, Lnp-s, Pf, B ivalent, 30 Mcg, IM, 12 yrs and above ([employer]) 08/16/2022 HEP A - Hepatitis A (Adult [...] Description 01/20/2024 9:10 AM EST Laboratory Laboratory [facility] [place] [address] [place] [phone] Rehana, Lab Scenery [address] [place] [address] 01/21/2024 9:15 AM EST Hem/Onc Treatment Hematology/Oncology Treatment, [place] [address] [place] [phone] Rehana, Chair 8 Hem Onc [facility] [address] [place] [address] 01/27/2024 11:00 AM EST Imaging Radiology [address] 132 [facility] [address] 02/04/2024 8:45 AM EDT Office Visit Hematology/Oncology [facility] Rehana [place] [address] [place] [phone] Dakota Armando MD [address] [place] [address] 07/20/2024 10:15 AM EDT Office Visit Dermatology [facility] [place] [address] [place] [address] Cal Jernigan MD [address] [place] [address] 07/21/2024 1:45 PM EDT Office Visit Hematology/Oncology [facility] [place] [address] [place] [phone] Dakota Armando MD [address] [place] [address] [address] 07/24/2024 11:40 AM EDT Office Visit Family Practice [facility] 132 [facility] [place] [address] Sergio Barriga MD [address] [place] [address] Scheduled Procedures Name Priority Associated Diagnoses Date/Ti [...] this encounter Medical Devices Implanted Type Area Director Clinical Operations Device Identifier Shelf Expiration Date Model / Serial / Lot Duraclip 16mm Xlg Repostn - [id number] Implanted:Qty : 1 on 07/17/2021 by Guillermo Jones DO at [facility]OSCOPY [facility] [employer] REYNALDO [id number] 01/10/2024 [id number] / / [id number] Stent Viabil Biliary [id number] - [id number] Implanted:Qty : 1 on 07/17/2021 by Guillermo Jones DO at ENDOSCOPY [facility] [employer]legro [id number] 03/04/2024 [id number] / [id number] / [id number] Port Implant W/8f Poly Cath - [id number] Implanted:Qty : 1 on 09/13/2023 by Gary Rodriguez DO at OR [facility] Right: Chest CR BARD : PERIPHERAL VASCULAR [id number] 04/24/2025 [id number] / / [id number] documented as of this encounter Results * (ABNORMAL) CA 19-9 (12/23/2023 9:26 AM EST) CA 19-9 461.2(H) <35.0 U/mL 12/23/2023 6:49 PM EST LABORATORY [facility] Blood Venous blood specimen / Unknown Venipuncture / Unknown 12/23/2023 9:26 AM EST 12/23/2023 9:26 AM EST Dakota Armando MD LAB BLOOD ORDERABLES LABORATORY [facility] [address] [place] [address] documented in this encounter Visit [...] Agen t (per Health Care Power of Group Managing Director document) [email or web address] Temo Bela Sibling First Alternate Health Care Agent (per Health Care Power of Group Managing Director document) [email or web address] Medium [email or web address] Teams Aadc Plans Staff Officer Relationship Specialty Start Date End Date Sergio Barriga MD [address] [place] [address] PCP - General Family Medicine 08/07/19 documented as of this encounter
--- OUTSIDE RECORDS SUMMARY | 2024-04-19 00:01 | External Medical Summary | Summary of Care ---
Author Name Unknown Organization [facility] Address [address] [place] [address] Phone [phone] Care Team Providers Care Group Manager Name Role Phone Sergio Barriga MD [...] Armando MD [address] [employer], [place] [address] Anc Hem/Onc Sceneelaine Kimball DEPT CLOSED - 10/08/23 [address] [place] [address] Referral ID Status Reason Start Date Expiration Date V isits Requested Visits Authorized [id number] Authorized 08/30/2023 11/24/2099 999 99 Encounter Details Date Type Department Care Team (Latest Contact Info) Description 12/10/2023 9:00 AM EST Hem/Onc Treatment Hematology/Oncolog y Treatment, [place] [address] [place] [phone] Rehana, Chair 3 Hem Onc Scenery [address] [place] [address] Encounter for antineoplastic chemotherapy*; 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); 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) Allergies Active Allergy Reactions Criticality Noted Date Comments Lisinopril Cough Low 08/07/2019 documented as of this encounter (statuses as of 01/18/2024) Medications Medication Sig Dispensed Refills Start Date End Date Status Boost 100 Calorie Smart Oral Liquid Take by mouth. 0 Active Multi Vitamin Daily Oral Tablet Take by mouth. 0 Active Aspirin 81 MG Oral Tablet Delayed Release Take 1 Tablet by mouth in the morning. 0 Active Pancrelipase (Nyb-Aqxz-Sljf) 51457-[address] UNIT Oral Capsule Delayed Release Particles (Creon 37420) 2 cap with meals, 1 with larger [...] as of this encounter (statuses as of 01/18/2024) Active Problems Problem Noted Date Diagnosed Date Malignant neoplasm of body of pancreas 3 Metastasis to liver 08/30/2023 Encounter for antineoplastic chemotherapy 2022 History of carcinoma of pancreas 07/18/2023 Post-viral cough syndrome 07/09/2023 Upper airway cough syndrome 07/09/2023 History of 2019 novel coronavirus disease (COVID -19) 10/16/2022 Coronary artery disease invo lving [place] coronary artery of [place] heart without angina pectoris 08/20/2022 Overview: [...] lipids WNL Factor V+heteroqygous. 04/10 colon-Dr Case [facility] 2 polyps 1 tubular adenoma. [...] as of this encounter (statuses as of 01/18/2024) Resolved Problems Problem Noted Date Diagnosed Date [...] WNL, antiphos lipids WNL Factor V+heteroqygous. FM IE-DQVY-XCLPS DIS NEC documented as of this encounter (statuses as of 01/18/2024) Immunizations Name Administration Dates Next Due COVID-19 mRNA, LNP-s, No Pre serve, 2-Dose Series ([employer]) 01/13/2022,07/21/2021,02/01/2021,01/04 COVID-19, MRNA-LNP, 23-24, P F, 30 MCG/0.3 mL, 12 YRS AND ABOVE, IM (EndoInSight-SpumeNewsirSkillWiz) 09/12/2023 Covid-19, Mrna, Lnp-s, Pf, B ivalent, 30 Mcg, IM, 12 yrs and above ([employer]) 08/16/2022 HEP A - Hepatitis A (Adult [...] 01/20/2024 9:10 AM EST Laboratory Laboratory [facility] [place] [address] [place] [phone] Rehana, Lab Scenery [address] [place] [address] 01/21/2024 9:15 AM EST Hem/Onc Treatment Hematology/Oncology Treatment, [place] [address] [place] [phone] Rehana, Chair 8 Hem Onc [facility] [address] [place] [address] 01/27/2024 11:00 AM EST Imaging Radiology [address] 132 [facility] [address] 02/04/2024 8:45 AM EDT Office Visit Hematology/Oncology [facility] Rehana [place] [address] [place] [phone] Dakota Armando MD [address] [place] [address] 07/20/2024 10:15 AM EDT Office Visit Dermatology [facility] [place] [address] [place] [address] Cal Jernigan MD [address] [place] [address] 07/21/2024 1:45 PM EDT Office Visit Hematology/Oncology [facility] [place] [address] [place] [phone] Dakota Armando MD [address] [place] [address] 07/24/2024 11:40 AM EDT Office Visit Family Practice [facility] 132 [facility] [place] [address] Sergio Barriga MD [address] [place] [address] Scheduled Procedures Name Priority Associated Diagnoses [...] this encounter Medical Devices Implanted Type Area General Worker Device Identifier Shelf Expiration Date Model / Serial / Lot Duraclip 16mm Xlg Repostn - [id number] Implanted:Qty : 1 on 07/17/2021 by Guillermo Jones DO at ENDOSCOPY [facility] [employer] REYNALDO [id number] 01/10/2024 [id number] / / [id number] Stent Viabil Biliary [id number] - [id number] Implanted:Qty : 1 on 07/17/2021 by Guillermo Jones DO at ENDOSCOPY [facility] [employer] [id number] 03/04/2024 [id number] / [id number] / [id number] Port Implant W/8f Poly Cath - [id number] Implanted:Qty : 1 on 09/13/2023 by Gary Rodriguez DO at OR [facility] Right: Chest CR BARD : PERIPHERAL VASCULAR [id number] 04/24/2025 [id number] / / [id number] documented as of this encounter Results * (ABNORMAL) CA 19-9 (12/23/2023 9:26 AM EST) CA 19-9 461.2(H) <35.0 U/mL 12/23/2023 6:49 PM EST LABORATORY [facility] Blood Venous blood specimen / Unknown Venipuncture / Unknown 12/23/2023 9:26 AM EST 12/23/2023 9:26 AM EST Dakota Armando MD LAB BLOOD ORDERABLES LABORATORY [facility] [address] [place] [address] documented in this encounter Visit [...] Documents on File Type Date Recorded Patient Shore Man Expl anation Advance Directives and Living Will [...] Agen t (per Health Care Power of Deputy County Attorney document) [email or web address] Temo Bela Sibling First Alternate Health Care Agent (per Health Care Power of Deputy County Attorney document) [email or web address] Care Teams Group Manager Relationship Specialty Start Date End Date Sergio Barriga MD [address] [place] [address] PCP - General Family Medicine 08/07/19 documented as of this encounter
--- OUTSIDE RECORDS SUMMARY | 2024-04-19 00:02 | External Medical Summary | Summary of Care ---
Author Name Unknown Organization [facility] Address [address] [place] [address] Phone [phone] Care Team Providers Care Distribution Associate Name Role Phone Sergio Barriga MD Primary Care Provider + Reason for Visit * Reason Comments Chemotherapy FOLFIRINOX C5D1 * Episode Based Medications (Routine) - Authorized Specialty Diagnoses / Procedures Referred By Linda hu Referred To Contact Diagnoses Encounter for antineoplastic chemotherapy 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) 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) Procedures [place] LEUCOVORIN CALCIUM INJECTION WY FLUOROURACIL INJECTION WY IRINOTECAN INJECTION WY OXALIPLATIN WY FOSAPREPITANT INJECTION BEVACIZUMAB-BVZR, BIOSIMILAR, 10 MG (ZIRABEV), IV W[place] INJECTION, UDENYCA 0.5 MG Dakota Armando MD [address] [employer], [place] [address] Anc Hem/Onc Sceneelaine Kimball DEPT CLOSED - 10/08/23 [address] [place] [address] Referral ID Status Reason Start Date Expiration Date V isits Requested Visits Authorized [id number] Authorized 08/30/2023 11/24/2099 999 99 Encounter Details Date Type Department Care Team (Latest Contact Info) Description 12/10/2023 9:00 AM EST Hem/Onc Treatment Hematology/Oncolog y Treatment, [place] [address] [place] [phone] Rehana, Chair 3 Hem Onc Scenery [address] [place] [address] Encounter for antineoplastic chemotherapy*; Metastasis to liver [...] mouth in the morning. 0 Active Pancrelipase (Srs-Eudm-Dhyz) [address]76[address] UNIT Oral Capsule Delayed Release Particles (Creon 36694) 2 cap with meals, 1 with larger [...] -19) 10/16/2022 Coronary artery disease invo lving [place] coronary artery of [place] heart without angina pectoris 08/20/2022 Overview: [...] WNL, antiphos lipids WNL Factor V+heteroqygous. FM ZF-SCIC-JHPIJ DIS NEC documented as of this encounter (statuses as of 01/18/2024) Immunizations Name Administration Dates Next Due COVID-19 mRNA, LNP-s, No Pre serve, 2-Dose Series ([employer]) 01/13/2022,07/21/2021,02/01/2021,01/04 COVID-19, MRNA-LNP, 23-24, P F, 30 MCG/0.3 mL, 12 YRS AND ABOVE, IM (Neovasc-PaymentusirSelerity) 09/12/2023 Covid-19, Mrna, Lnp-s, Pf, B ivalent, 30 Mcg, IM, 12 yrs and above ([employer]) 08/16/2022 HEP A - Hepatitis A [...] Description 01/20/2024 9:10 AM EST Laboratory Laboratory [facility] [place] [address] [place] [phone] Rehana, Lab Scenery [address] [place] [address] 01/21/2024 9:15 AM EST Hem/Onc Treatment Hematology/Oncology Treatment, [place] [address] [place] [phone] Rehana, Chair 8 Hem Onc [facility] [address] [place] [address] 01/27/2024 11:00 AM EST Imaging Radiology [address] 132 [facility] [address] 02/04/2024 8:45 AM EDT Office Visit Hematology/Oncology [facility] Rehana [place] [address] [place] [phone] Dakota Armando MD [address] [place] [address] 07/20/2024 10:15 AM EDT Office Visit Dermatology [facility] [place] [address] [place] [address] Cal Jernigan MD [address] [place] [address] 07/21/2024 1:45 PM EDT Office Visit Hematology/Oncology [facility] [place] [address] [place] [phone] Dakota Armando MD [address] [place] [address] [address] 07/24/2024 11:40 AM EDT Office Visit Family Practice [facility] 132 [facility] [place] [address] Sergio Barriga MD [address] [place] [address] Scheduled Procedures Name Priority Associated Diagnoses Date/Ti [...] this encounter Medical Devices Implanted Type Area Coding Technician Device Identifier Shelf Expiration Date Model / Serial / Lot Duraclip 16mm Xlg Repostn - [id number] Implanted:Qty : 1 on 07/17/2021 by Guillermo Jones DO at ENDOSCOPY [facility] [employer] REYNALDO [id number] 01/10/2024 [id number] / / [id number] Stent Viabil Biliary [id number] - [id number] Implanted:Qty : 1 on 07/17/2021 by Guillermo Jones DO at ENDOSCOPY [facility] [employer] [id number] 03/04/2024 [id number] / [id number] / [id number] Port Implant W/8f Poly Cath - [id number] Implanted:Qty : 1 on 09/13/2023 by Gary Rodriguez DO at OR [facility] Right: Chest CR BARD : PERIPHERAL VASCULAR [id number] 04/24/2025 [id number] / / [id number] documented as of this encounter Results * (ABNORMAL) CA 19-9 (12/23/2023 9:26 AM EST) CA 19-9 461.2(H) <35.0 U/mL 12/23/2023 6:49 PM EST LABORATORY [facility] Blood Venous blood specimen / Unknown Venipuncture / Unknown 12/23/2023 9:26 AM EST 12/23/2023 9:26 AM EST Dakota Armando MD LAB BLOOD ORDERABLES LABORATORY [facility] [address] [place] [address] documented in this encounter Visit [...] Documents on File Type Date Recorded Patient Cabinet Finisher Expl anation Advance Directives and Living Will [...] Agen t (per Health Care Power of Graphic User Interface Designer document) [email or web address] Temo Bela Sibling First Alternate Health Care Agent (per Health Care Power of Graphic User Interface Designer document) [email or web address] Care Teams Distribution Associate Relationship Specialty Start Date End Date Sergio Barriga MD [address] [place] [address] [address] PCP - General Family Medicine 08/07/19 documented as of this encounter
--- OUTSIDE RECORDS SUMMARY | 2024-04-19 00:02 | External Medical Summary | Summary of Care ---
Author Name Unknown Organization [facility] Address [address] [place] [address] Phone [phone] Care Team Providers Care Youth Corrections Officer Name Role Phone Sergio Barriga MD [...] Armando MD [address] [employer], [place] [address] Anc Hem/Onc Scene[facility] DEPT CLOSED - 10/08/23 [address] [place] [address] Referral ID Status Reason Start Date Expiration Date V isits Requested Visits Authorized [id number] Authorized 08/30/2023 11/24/2099 999 99 Encounter Details Date Type Department Care Team (Latest Contact Info) Description 12/10/2023 9:00 AM EST Hem/Onc Treatment Hematology/Oncolog y Treatment, [place] [address] [place] [phone] Rehana, Chair 3 Hem Onc Scenery [address] [place] [address] Encounter for antineoplastic chemotherapy*; Metastasis to liver [...] mouth in the morning. 0 Active Pancrelipase (Vrd-Apml-Ksjc) 58633-91064 UNIT Oral Capsule Delayed Release Particles (Creon 86306) 2 cap with meals, 1 with larger [...] -19) 10/16/2022 Coronary artery disease invo lving [place] coronary artery of [place] heart without angina pectoris 08/20/2022 Overview: Severe [...] WNL, antiphos lipids WNL Factor V+heteroqygous. FM ZL-QLPC-RLGTE DIS NEC documented as of this encounter (statuses as of 01/18/2024) Immunizations Name Administration Dates Next Due COVID-19 mRNA, LNP-s, No Pre serve, 2-Dose Series (Meal Ticket) 01/13/2022,07/21/2021,02/01/2021,01/04 COVID-19, MRNA-LNP, 23-24, P F, 30 MCG/0.3 mL, 12 YRS AND ABOVE, IM ([employer]2d[employer]) 09/12/2023 Covid-19, Mrna, Lnp-s, Pf, B ivalent, 30 Mcg, IM, 12 yrs and above (Meal Ticket) 08/16/2022 HEP A - Hepatitis A (Adult [...] Description 01/20/2024 9:10 AM EST Laboratory Laboratory [facility] [place] [address] [place] [phone] Rehana, Lab Scenery [address] [place] [address] 01/21/2024 9:15 AM EST Hem/Onc Treatment Hematology/Oncology Treatment, [place] [address] [place] [phone] Rehana, Chair 8 Hem Onc [facility] [address] [place] [address] 01/27/2024 11:00 AM EST Imaging Radiology [address] [facility] [address] 02/04/2024 8:45 AM EDT Office Visit Hematology/Oncology [facility] Rehana [place] [address] [place] [phone] Dakota Armando MD [address] [place] [address] 07/20/2024 10:15 AM EDT Office Visit Dermatology [facility] [place] [address] [place] [address] Cal Jernigan MD [address] [place] [address] 07/21/2024 1:45 PM EDT Office Visit Hematology/Oncology [facility] [place] [address] [place] [phone] Dakota Armando MD [address] [place] [address] [address] 07/24/2024 11:40 AM EDT Office Visit Family Practice [facility] 132 [facility] [place] [address] Sergio Barriga MD [address] [place] [address] Scheduled Procedures Name Priority Associated Diagnoses Date/Ti [...] this encounter Medical Devices Implanted Type Area Oil And Gas Superintendent Device Identifier Shelf Expiration Date Model / Serial / Lot Duraclip 16mm Xlg Repostn - [id number] Implanted:Qty : 1 on 07/17/2021 by uGillermo Jones DO at ENDOSCOPY [facility] [employer] REYNALDO [id number] 01/10/2024 [id number] / / [id number] Stent Viabil Biliary [id number] - [id number] Implanted:Qty : 1 on 07/17/2021 by Guillermo Jones DO at ENDOSCOPY [facility] [employer] [id number] 03/04/2024 [id number] / [id number] / [id number] Port Implant W/8f Poly Cath - [id number] Implanted:Qty : 1 on 09/13/2023 by Gary Rodriguez DO at OR [facility] Right: Chest CR BARD : PERIPHERAL VASCULAR [id number] 04/24/2025 [id number] / / [id number] documented as of this encounter Results * (ABNORMAL) CA 19-9 (12/23/2023 9:26 AM EST) CA 19-9 461.2(H) <35.0 U/mL 12/23/2023 6:49 PM EST LABORATORY [facility] Blood Venous blood specimen / Unknown Venipuncture / Unknown 12/23/2023 9:26 AM EST 12/23/2023 9:26 AM EST Dakota Armando MD LAB BLOOD ORDERABLES LABORATORY [facility] [address] [place] [address] documented in this encounter Visit [...] Documents on File Type Date Recorded Patient Global Analytics Head Expl anation Advance Directives and Living Will [...] Agen t (per Health Care Power of Ceramic Tile Setter document) [email or web address] Temo Bela Sibling First Alternate Health Care Agent (per Health Care Power of Ceramic Tile Setter document) [email or web address] Care Teams Youth Corrections Officer Relationship Specialty Start Date End Date Sergio Barriga MD [address] [place] [address] PCP - General Family Medicine 08/07/19 documented as of this encounter
--- OUTSIDE RECORDS SUMMARY | 2024-04-19 00:02 | External Medical Summary | Summary of Care ---
Author Name Unknown Organization [facility] Address [address] [place] [address] Phone [phone] Care Team Providers Care Powerhouse Mechanic Name Role Phone Sergio Barriga MD Primary Care Provider + Reason for Visit * Reason Comments Chemotherapy FOLFIRINOX C5D1 * Episode Based Medications (Routine) - Authorized Specialty Diagnoses / Procedures Referred By Linda hu Referred To Contact Diagnoses Encounter for antineoplastic chemotherapy 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) 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) Procedures VA LEUCOVORIN CALCIUM INJECTION VA FLUOROURACIL INJECTION VA IRINOTECAN INJECTION VA OXALIPLATIN VA FOSAPREPITANT INJECTION BEVACIZUMAB-BVZR, BIOSIMILAR, 10 MG (ZIRABEV), IV VA INJECTION, UDENYCA 0.5 MG Dakota Armando MD [address] [employer], [place] [address] Anc Hem/Onc Sceneelaine Kimball DEPT CLOSED - 10/08/23 [address] [place] [address] Referral ID Status Reason Start Date Expiration Date V isits Requested Visits Authorized [id number] Authorized 08/30/2023 11/24/2099 999 99 Encounter Details Date Type Department Care Team (Latest Contact Info) Description 12/10/2023 9:00 AM EST Hem/Onc Treatment Hematology/Oncolog y Treatment, [place] [address] [place] [phone] Rehana, Chair 3 Hem Onc Scenery [address] [place] [address] Encounter for antineoplastic chemotherapy*; Metastasis to liver [...] mouth in the morning. 0 Active Pancrelipase (Ocn-Ssjq-Ohxq) 35547-[address] UNIT Oral Capsule Delayed Release Particles (Creon 69893) 2 cap with meals, 1 with larger [...] lipids WNL Factor V+heteroqygous. 04/10 colon-Dr Case [facility] 2 polyps 1 tubular adenoma. Kevin 6y 2013 sleep study [facility] WNL [address] Elena [facility] Essential hypertension with goal blood pressure less [...] WNL, antiphos lipids WNL Factor V+heteroqygous. FM IG-VRKM-HBFIO DIS NEC documented as of this encounter (statuses as of 01/18/2024) Immunizations Name Administration Dates Next Due COVID-19 mRNA, LNP-s, No Pre serve, 2-Dose Series (Active Storage) 01/13/2022,07/21/2021,02/01/2021,01/04 COVID-19, MRNA-LNP, 23-24, P F, 30 MCG/0.3 mL, 12 YRS AND ABOVE, IM ([place] [employer]-TopadmitirVeodin) 09/12/2023 Covid-19, Mrna, Lnp-s, Pf, B ivalent, 30 Mcg, IM, 12 yrs and above (Active Storage) 08/16/2022 HEP A - Hepatitis A (Adult [...] 01/20/2024 9:10 AM EST Laboratory Laboratory [facility] [place] [address] [place] [phone] Rehana, Lab Scenery [address] [place] [address] 01/21/2024 9:15 AM EST Hem/Onc Treatment Hematology/Oncology Treatment, [place] [address] [place] [phone] Rehana, Chair [address] [facility] [address] [place] [address] [place] [address] 01/27/2024 11:00 AM EST Imaging Radiology [address] 132 [facility] [address] 02/04/2024 8:45 AM EDT Office Visit Hematology/Oncology [facility] Rehana [place] [address] [place] [phone] Dakota Armando MD [address] [place] [address] 07/20/2024 10:15 AM EDT Office Visit Dermatology [facility] [place] [address] [place] [address] Cal Jernigan MD [address] [place] [address] 07/21/2024 1:45 PM EDT Office Visit Hematology/Oncology [facility] [place] [address] [place] [phone] Dakota Armando MD [address] [place] [address] [address] 07/24/2024 11:40 AM EDT Office Visit Family Practice [facility] 132 [facility] [place] [address] Sergio Barriga MD [address] [place] [address] Scheduled Procedures Name Priority Associated Diagnoses Date/Ti [...] this encounter Medical Devices Implanted Type Area Therapist Device Identifier Shelf Expiration Date Model / Serial / Lot Duraclip 16mm Xlg Repostn - [id number] Implanted:Qty : 1 on 07/17/2021 by Guillermo Jones DO at ENDOSCOPY [facility] [employer] REYNALDO [id number] 01/10/2024 [id number] / / [id number] Stent Viabil Biliary 44vng2sq - [id number] Implanted:Qty : 1 on 07/17/2021 by Guillermo Jones DO at ENDOSCOPY [facility] [employer] [id number] 03/04/2024 [id number] / [id number] / [id number] Port Implant W/8f Poly Cath - [id number] Implanted:Qty : 1 on 09/13/2023 by Gary Rodriguez DO at OR [facility] Right: Chest CR BARD : PERIPHERAL VASCULAR [id number] 04/24/2025 [id number] / / [id number] documented as of this encounter Results * (ABNORMAL) CA 19-9 (12/23/2023 9:26 AM EST) CA 19-9 461.2(H) <35.0 U/mL 12/23/2023 6:49 PM EST LABORATORY [facility] Blood Venous blood specimen / Unknown Venipuncture / Unknown 12/23/2023 9:26 AM EST 12/23/2023 9:26 AM EST Dakota Armando MD LAB BLOOD ORDERABLES LABORATORY [facility] [address] [place] [address] documented in this encounter Visit [...] Documents on File Type Date Recorded Patient Dock Manager Expl anation Advance Directives and Living [...] Agen t (per Health Care Power of Laundry Machine Tender document) [email or web address] Temo Bela Sibling First Alternate Health Care Agent (per Health Care Power of Laundry Machine Tender document) [email or web address] Care Teams Powerhouse Mechanic Relationship Specialty Start Date End Date Sergio Barriga MD [address] [place] [address] PCP - General Family Medicine 08/07/19 documented as of this encounter
--- OUTSIDE RECORDS SUMMARY | 2024-04-19 00:02 | External Medical Summary | Summary of Care ---
Author Name Unknown Organization [facility] Address [address] [place] [address] Phone [phone] Care Team Providers Care Sales Research Analyst Name Role Phone Sergio Barriga MD [...] Armando MD [address] [employer], [place] [address] Anc Hem/Onc Sceneelaine [facility] DEPT CLOSED - 10/08/23 [address] [place] [address] Referral ID Status Reason Start Date Expiration Date V isits Requested Visits Authorized [id number] Authorized 08/30/2023 11/24/2099 999 99 Encounter Details Date Type Department Care Team (Latest Contact Info) Description 12/10/2023 9:00 AM EST Hem/Onc Treatment Hematology/Oncolog y Treatment, [place] [address] [place] [phone] Rehana, Chair 3 Hem Onc Scenery [address] [place] [address] Encounter for antineoplastic chemotherapy*; Metastasis to liver [...] mouth in the morning. 0 Active Pancrelipase (Avc-Djjt-Hycc) 34427-84[address] UNIT Oral Capsule Delayed Release Particles (Creon 37345) 2 cap with meals, 1 with larger [...] -19) 10/16/2022 Coronary artery disease invo lving [place] coronary artery of [place] heart without angina pectoris 08/20/2022 Overview: Severe [...] lipids WNL Factor V+heteroqygous. 04/10 colon-Dr Case [facility] 2 polyps [...] WNL, antiphos lipids WNL Factor V+heteroqygous. FM XA-ZZKU-OYFDS DIS NEC documented as of this encounter (statuses as of 01/18/2024) Immunizations Name Administration Dates Next Due COVID-19 mRNA, LNP-s, No Pre serve, 2-Dose Series ([employer]onics) 01/13/2022,07/21/2021,02/01/2021,01/04 COVID-19, MRNA-LNP, 23-24, P F, 30 MCG/0.3 mL, 12 YRS AND ABOVE, IM ([employer]-L[employer] International[employer]wenty[employer]) 09/12/2023 Covid-19, Mrna, Lnp-s, Pf, B ivalent, 30 Mcg, IM, 12 yrs and above ([employer]onics) 08/16/2022 HEP A - Hepatitis A (Adult [...] Description 01/20/2024 9:10 AM EST Laboratory Laboratory [facility] [place] [address] [place] [phone] Rehana, Lab Scenery [address] [place] [address] 01/21/2024 9:15 AM EST Hem/Onc Treatment Hematology/Oncology Treatment, [place] [address] [place] [phone] Rehana, Chair 8 Hem Onc [facility] [address] [place] [address] 01/27/2024 11:00 AM EST Imaging Radiology [address] [facility] [address] 02/04/2024 8:45 AM EDT Office Visit Hematology/Oncology [facility] Rehana [place] [address] [place] [phone] Dakota Armando MD [address] [place] [address] 07/20/2024 10:15 AM EDT Office Visit Dermatology [facility] [place] [address] [place] [address] Cal Jernigan MD [address] [place] [address] 07/21/2024 1:45 PM EDT Office Visit Hematology/Oncology [facility] [place] [address] [place] [phone] Dakota Armando MD [address] [place] [address] [address] 07/24/2024 11:40 AM EDT Office Visit Family Practice [facility] 132 [facility] [place] [address] Sergio Barriga MD [address] [place] [address] Scheduled Procedures Name Priority Associated Diagnoses Date/Ti [...] this encounter Medical Devices Implanted Type Area Pe Electrical Engineer Device Identifier Shelf Expiration Date Model / Serial / Lot Duraclip 16mm Xlg Repostn - [id number] Implanted:Qty : 1 on 07/17/2021 by Guillermo Jones DO at ENDOSCOPY [facility] [employer] REYNALDO [id number] 01/10/2024 [id number] / / [id number] Stent Viabil Biliary 82xzz3mu - [id number] Implanted:Qty : 1 on 07/17/2021 by Guillermo Jones DO at [facility] [employer] [id number] 03/04/2024 [id number] / [id number] / [id number] Port Implant W/8f Poly Cath - [id number] Implanted:Qty : 1 on 09/13/2023 by Gary Rodriguez DO at OR [facility] Right: Chest CR BARD : PERIPHERAL VASCULAR [id number] 04/24/2025 [id number] / / [id number] documented as of this encounter Results * (ABNORMAL) CA 19-9 (12/23/2023 9:26 AM EST) CA 19-9 461.2(H) <35.0 U/mL 12/23/2023 6:49 PM EST LABORATORY [facility] Blood Venous blood specimen / Unknown Venipuncture / Unknown 12/23/2023 9:26 AM EST 12/23/2023 9:26 AM EST Dakota Armando MD LAB BLOOD ORDERABLES LABORATORY [facility] [address] [place] [address] documented in this encounter Visit [...] Documents on File Type Date Recorded 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
--- OUTSIDE RECORDS SUMMARY | 2024-04-19 00:02 | External Medical Summary | Summary of Care ---
Author Name Unknown Organization [facility] Address [address] [place] [address] Phone [phone] Care Team Providers Care Structural Steel Worker Helper Name Role Phone Sergio Barriga MD [...] Armando MD [address] [employer], [place] [address] Anc Hem/Onc Sceneelaine Kimball DEPT CLOSED - 10/08/23 [address] [place] [address] Referral ID Status Reason Start Date Expiration Date V isits Requested Visits Authorized [id number] Authorized 08/30/2023 11/24/2099 999 99 Encounter Details Date Type Department Care Team (Latest Contact Info) Description 12/10/2023 9:00 AM EST Hem/Onc Treatment Hematology/Oncolog y Treatment, [place] [address] [place] [phone] Rehana, Chair 3 Hem Onc Scenery [address] [place] [address] Encounter for antineoplastic chemotherapy*; Metastasis to liver [...] mouth in the morning. 0 Active Pancrelipase (Mgm-Spot-Dapk) 56208-[address] UNIT Oral Capsule Delayed Release Particles (Creon 70310) 2 cap with meals, 1 with larger [...] -19) 10/16/2022 Coronary artery disease invo lving [place] coronary artery of [place] heart without angina pectoris 08/20/2022 Overview: Severe [...] WNL, antiphos lipids WNL Factor V+heteroqygous. FM XZ-CNWG-DJFXF DIS NEC documented as of this encounter (statuses as of 01/18/2024) Immunizations Name Administration Dates Next Due COVID-19 mRNA, LNP-s, No Pre serve, 2-Dose Series (Fetchnotes) 01/13/2022,07/21/2021,02/01/2021,01/04 COVID-19, MRNA-LNP, 23-24, P F, 30 MCG/0.3 mL, 12 YRS AND ABOVE, IM ([employer]-Pentalum TechnologiesirOd[employer]) 09/12/2023 Covid-19, Mrna, Lnp-s, Pf, B ivalent, 30 Mcg, IM, 12 yrs and above (Fetchnotes) 08/16/2022 HEP A - Hepatitis A (Adult [...] Description 01/20/2024 9:10 AM EST Laboratory Laboratory [facility] [place] [address] [place] [phone] Rehana, Lab Scenery [address] [place] [address] 01/21/2024 9:15 AM EST Hem/Onc Treatment Hematology/Oncology Treatment, [place] [address] [place] [phone] Rehana, Chair 8 Hem Onc [facility] [address] [place] [address] 01/27/2024 11:00 AM EST Imaging Radiology [address] 132 [facility] [address] 02/04/2024 8:45 AM EDT Office Visit Hematology/Oncology [facility] Rehana [place] [address] [place] [phone] Dakota Armando MD [address] [place] [address] 07/20/2024 10:15 AM EDT Office Visit Dermatology [facility] [place] [address] [place] [address] Cal Jernigan MD [address] [place] [address] 07/21/2024 1:45 PM EDT Office Visit Hematology/Oncology [facility] [place] [address] [place] [phone] Dakota Armando MD [address] [place] [address] 07/24/2024 11:40 AM EDT Office Visit Family Practice [facility] 132 [facility] [place] [address] Sergio Barriga MD [address] [place] [address] Scheduled Procedures Name Priority Associated Diagnoses Date/Ti [...] this encounter Medical Devices Implanted Type Area Business Attorney Device Identifier Shelf Expiration Date Model / Serial / Lot Duraclip 16mm Xlg Repostn - [id number] Implanted:Qty : 1 on 07/17/2021 by Guillermo Jones DO at ENDOSCOPY [facility] [employer] REYNALDO [id number] 01/10/2024 [id number] / / [id number] Stent Viabil Biliary [id number] - [id number] Implanted:Qty : 1 on 07/17/2021 by Guillermo Jones DO at ENDOSCOPY [facility] [employer] [id number] 03/04/2024 [id number] / [id number] / [id number] Port Implant W/8f Poly Cath - [id number] Implanted:Qty : 1 on 09/13/2023 by Gary Rodriguez DO at OR [facility] Right: Chest CR BARD : PERIPHERAL VASCULAR [id number] 04/24/2025 [id number] / / [id number] documented as of this encounter Results * (ABNORMAL) CA 19-9 (12/23/2023 9:26 AM EST) CA 19-9 461.2(H) <35.0 U/mL 12/23/2023 6:49 PM EST LABORATORY [facility] Blood Venous blood specimen / Unknown Venipuncture / Unknown 12/23/2023 9:26 AM EST 12/23/2023 9:26 AM EST Dakota Armando MD LAB BLOOD ORDERABLES LABORATORY [facility] [address] [place] [address] documented in this encounter Visit [...] Documents on File Type Date Recorded Patient Ballet Soloist Expl anation Advance Directives and Living Will [...] Agen t (per Health Care Power of Hosting Engineer document) [email or web address] Temo Bela Sibling First Alternate Health Care Agent (per Health Care Power of Hosting Engineer document) [email or web address] Care Teams Structural Steel Worker Helper Relationship Specialty Start Date End Date Sergio Barriga MD [address] [place] [address] PCP - General Family Medicine 08/07/19 documented as of this encounter
--- OUTSIDE RECORDS SUMMARY | 2024-04-19 00:02 | External Medical Summary | Summary of Care ---
Author Name Unknown Organization [facility] Address [address] [place] [address] Phone [phone] Care Team Providers Care Call Circuit Worker Name Role Phone Sergio Barriga MD Primary Care Provider + Reason for Visit * Reason Comments Chemotherapy FOLFIRINOX C5D1 * Episode Based Medications (Routine) - Authorized Specialty Diagnoses / Procedures Referred By Linda hu Referred To Contact Diagnoses Encounter for antineoplastic chemotherapy 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) 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) Procedures ND LEUCOVORIN CALCIUM INJECTION ND FLUOROURACIL INJECTION ND IRINOTECAN INJECTION ND OXALIPLATIN ND FOSAPREPITANT INJECTION BEVACIZUMAB-BVZR, BIOSIMILAR, 10 MG (ZIRABEV), IV ND INJECTION, UDENYCA 0.5 MG Dakota Armando MD [address] [employer], [place] [address] Anc Hem/Onc [facility] DEPT CLOSED - 10/08/23 [address] [place] [address] Referral ID Status Reason Start Date Expiration Date V isits Requested Visits Authorized [id number] Authorized 08/30/2023 11/24/2099 999 99 Encounter Details Date Type Department Care Team (Latest Contact Info) Description 12/10/2023 9:00 AM EST Hem/Onc Treatment Hematology/Oncolog y Treatment, [place] [address] [place] [phone] Reh[place], Chair 3 Hem Onc Scenery [address] [place] [address] Encounter for antineoplastic chemotherapy*; Metastasis to liver [...] mouth in the morning. 0 Active Pancrelipase (Wkn-Mmlu-Rkvi) [address]42 UNIT Oral Capsule Delayed Release Particles (Creon 52470) 2 cap with meals, 1 with larger [...] -19) 10/16/2022 Coronary artery disease invo lving [place] and si[place] coronary artery of [place] heart without angina pectoris 08/20/2022 Overview: [...] WNL, antiphos lipids WNL Factor V+heteroqygous. FM JL-SCKH-AJAVQ DIS NEC documented as of this encounter (statuses as of 01/18/2024) Immunizations Name Administration Dates Next Due COVID-19 mRNA, LNP-s, No Pre serve, 2-Dose Series ([employer]) 01/13/2022,07/21/2021,02/01/2021,01/04 COVID-19, MRNA-LNP, 23-24, P F, 30 MCG/0.3 mL, 12 YRS AND ABOVE, IM ([employer]) 09/12/2023 Covid-19, Mrna, Lnp-s, Pf, B ivalent, 30 Mcg, IM, 12 yrs and above ([employer]) 08/16/2022 HEP A - Hepatitis A [...] Description 01/20/2024 9:10 AM EST Laboratory Laboratory [facility] [place] [address] [place] [phone] Rehana, Lab Scenery [address] [place] [address] 01/21/2024 9:15 AM EST Hem/Onc Treatment Hematology/Oncology Treatment, [place] [address] [place] [phone] [place]ana, Chair [address] [facility] [address] [place] [address] [address] 01/27/2024 11:00 AM EST Imaging Radiology [address] [facility] [address] 02/04/2024 8:45 AM EDT Office Visit Hematology/Oncology [facility] [place] [address] [place] [phone] Dakota Armando MD [address] [place] [address] 07/20/2024 10:15 AM EDT Office Visit Dermatology [facility] [place] [address] [place] [address] Cal Jernigan MD [address] [place] [address] 07/21/2024 1:45 PM EDT Office Visit Hematology/Oncology [facility] [place] [address] [place] [phone] Dakota Armando MD [address] [place] [address] [address] 07/24/2024 11:40 AM EDT Office Visit Family Practice [facility] 132 [facility] [place] [address] Sergio Barriga MD [address] [place] [address] Scheduled Procedures Name Priority Associated Diagnoses Date/Ti [...] encounter Medical Devices Implanted Type Area Director Of Content And Programming Device Identifier Shelf Expiration Date Model / Serial / Lot Duraclip 16mm Xlg Repostn - [id number] Implanted:Qty : 1 on 07/17/2021 by Guillermo Jones DO [place] [facility] [place] [employer] REYNALDO [id number] 01/10/2024 [id number] / / [id number] Stent Viabil Biliary [id number] - [id number] Implanted:Qty : 1 on 07/17/2021 by Guillermo Jones DO at [place] [facility] [place] [employer] [id number] 03/04/2024 [id number] / [id number] / [id number] Port Implant W/8f Poly Cath - [id number] Implanted:Qty : 1 on 09/13/2023 by Gary Rodriguez DO at OR [facility] Right: Chest CR BARD : PERIPHERAL VASCULAR [id number] 04/24/2025 [id number] / / [id number] documented as of this encounter Results * (ABNORMAL) CA 19-9 (12/23/2023 9:26 AM EST) CA 19-9 461.2(H) <35.0 U/mL 12/23/2023 6:49 PM EST LABORATORY [facility] [place] Blood Venous blood specimen / Unknown Venipuncture / Unknown 12/23/2023 9:26 AM EST 12/23/2023 9:26 AM EST Dakota Armando MD LAB BLOOD ORDERABLES LAB[facility] [place] [address] [place] [address] documented in this encounter Visit [...] Documents on File Type Date Recorded Patient Porcelain Enameling Supervisor Expl anation Advance Directives and Living [...] Agen t (per Health Care Power of Insert Cutter document) [email or web address] Temo Bela Sibling First Alternate Health Care Agent (per Health Care Power of Insert Cutter document) [email or web address] Care Teams Call Circuit Worker Relationship Specialty Start Date End Date Sergio Barriga MD [address] [place] [address] PCP - General Family Medicine 08/07/19 documented as of this encounter
--- OUTSIDE RECORDS SUMMARY | 2024-04-19 00:03 | External Medical Summary | Summary of Care ---
Author Name Unknown Organization [facility] Address [address] [place] [address] Phone [phone] Care Team Providers Care Quality Review Specialist Name Role Phone Sergio Barriga MD Primary Care Provider + Reason for Visit * Reason Comments Chemotherapy Oxaliplatin, irinote can, leucovorin, 5fu pump. 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) Procedures MO LEUCOVORIN CALCIUM INJECTION MO FLUOROURACIL INJECTION MO IRINOTECAN INJECTION MO OXALIPLATIN MO FOSAPREPITANT INJECTION BEVACIZUMAB-BVZR, BIOSIMILAR, 10 MG (ZIRABEV), IV MO INJECTION, UDENYCA 0.5 MG Dakota Armando MD [address] [place], [place] [address] Anc Hem/Onc [facility] [place] DEPT CLOSED - 10/08/23 200 [facility] [place] [address] Referral ID Status Reason Start Date Expiration Date V isits Requested Visits Authorized [id number] Authorized 08/30/2023 11/24/2099 999 99 Encounter Details Date Type Department Care Team (Latest Contact Info) Description 12/24/2023 10:30 AM EST Hem/Onc Treatment Hematology/Oncolog y Treatment, [place] [address] [place] [phone] Rehana, Chair 11 Hem Onc Scenery [address] [place] [address] Encounter for antineoplastic chemotherapy*; 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); 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) Allergies Active Allergy Reactions Criticality Noted Date Comments Lisinopril Cough Low 08/07/2019 documented as of this encounter (statuses as of 01/16/2024) Medications Medication Sig Dispensed Refills Start Date End Date Status Boost 100 Calorie Smart Oral Liquid Take by mouth. 0 Active Multi Vitamin Daily Oral Tablet Take by mouth. 0 Active Aspirin 81 MG Oral Tablet Delayed Release Take 1 Tablet by mouth in the morning. 0 Active Pancrelipase (Xql-Jrfr-Uhuq) 49469-[address] UNIT Oral Capsule Delayed Release Particles (Creon 51267) 2 cap with meals, 1 with larger [...] 12/19/2023 Active ALPRAZolam 1 MG Oral Tablet (xaNAX)Indicati ons:Chronic insomnia TAKE ONE TABLET BY MOUTH AT BEDTIME NEEDED FOR SLEEP 30 Tablet 0 11/22/2023 4 Discontinued documented as of this encounter (statuses as of 01/16/2024) Active Problems Problem Noted Date Diagnosed Date Malignant neoplasm of body of pancreas 3 Metastasis to liver 08/30/2023 Encounter for antineoplastic chemotherapy 2022 History of carcinoma of pancreas 07/18/2023 Post-viral cough syndrome 07/09/2023 Upper airway cough syndrome 07/09/2023 History of 2019 novel coronavirus disease (COVID -19) 10/16/2022 Coronary artery disease invo lving [place] coronary artery of sw[place] heart without angina pectoris 08/20/2022 Overview: Severe [...] lipids WNL Factor V+heteroqygous. 04/10 colon-Dr Case [facility] 2 polyps 1 tubular adenoma. Kevin 5y 2013 sleep study [facility] WNL [address] Elena [facility] Essential hypertension with goal blood pressure [...] as of this encounter (statuses as of 01/16/2024) Resolved Problems Problem Noted Date Diagnosed Date [...] WNL, antiphos lipids WNL Factor V+heteroqygous. FM IZ-FAKR-OJIAH DIS NEC documented as of this encounter (statuses as of 01/16/2024) Immunizations Name Administration Dates Next Due COVID-19 mRNA, LNP-s, No Pre serve, 2-Dose Series ([employer]) 01/13/2022,07/21/2021,02/01/2021,01/04 COVID-19, MRNA-LNP, 23-24, P F, 30 MCG/0.3 mL, 12 YRS AND ABOVE, IM ([facility]) 09/12/2023 Covid-19, Mrna, Lnp-s, Pf, B ivalent, 30 Mcg, IM, 12 yrs and above ([employer]) 08/16/2022 HEP A - Hepatitis A (Adult [...] Sign Reading Time Taken Comments Blood Pressure 127/72 12/24/2023 10:35 AM EST Pulse 80 12/24/2023 10:35 AM EST Temperature 37 C (98.6 F) 12/24/2023 10:35 AM EST Respiratory Rate 18 12/24/2023 10:35 AM EST Oxygen Saturation 97% 12/24/2023 10:35 AM EST Inhaled Oxygen Concentration - - Weight 63.2 kg (139 lb 6.4 oz) 12/24/2023 10:35 AM EST Height - - Body Mass Index 20.59 12/02/2023 2:17 PM EST documented in this [...] as of this encounter Nursing Notes * Audrey Morataya RN - 12/24/2023 3:25 PM EST Goals: Patient will remain free from injury. Possible barriers to meeting goals: Fall risk d/t ambulation with IV pole. Stability of the patient: Moderately stable - low risk of patient condition declining or worsening Summary regarding today's goals: Met: Patient remained free of injury. Functional status at today's visit: Fully active, [...] symptoms or adverse side effects during treatment. 5fu pump hooked up and clamps were all open to infuse medication. Patient tolerated procedure well. Discharged in stable condition. * Audrey Morataya RN - 12/24/2023 10:55 AM EST Chair 10. Patient arrived for Oxaliplatin, irinotecan, leucovorin, 5fu pump. Patient states feels well overall, did have a low grade fever on Saturday, and patients WBC are elevated, per telephone encounter noteper Dr. Armando ok to treat since patient feels fine. Chemo agents Oxaliplatin, irinotecan, leucovorin, 5fu pump. Appetite good Nausea/Vomiting no Diarrhea one instance but went away. Constipation no Mucositis no Fatigue no Bleeding no Infection no Rash no Numbness tingling no Pain no Radiation no ABN Labs WNL for treatment, see above note. Alt in Tx: no Return in 2 days. Safety and Risk for Injury Patient will remain free from injury. Ensure appropriate safety devices are available. Provide and maintain safe environment. * Courtney Plascencia RN - 12/23/2023 12:59 PM EST Alk phos 169, WBC 13.95, ANC 11.41. Patient sent MyG that he was sick yesterday with low grade fever, today is fine. Reviewed with Dr Armando- nitza to proceed with treatment. documented in this encounter Plan of Treatment Upcoming Encounters Date Type Department Care Team (Late st Contact Info) Description 01/20/2024 9:10 AM EST Laboratory Laboratory [facility] [place] [address] [place] [phone] [place], Lab [facility] 200 [facility] [place] [address] 01/21/2024 9:15 AM EST Hem/Onc Treatment Hematology/Oncology Treatment, [place] [address] [place] [phone] Rehana, Chair 8 Hem Onc [address] [place] [address] 01/27/2024 11:00 AM EST Imaging Radiology [facility] 1st [facility], [place] 132 [facility] [place] [id number] 02/04/2024 8:45 AM EDT Office Visit Hematology/Oncology [facility] [place] [address] [place] [phone] Dakota Armando MD 200 [facility] [place] [address] 07/20/2024 10:15 AM EDT Office Visit Dermatology [facility] [place] [address] [place] [address] [address] Cal Jernigan MD 200 [facility] [place] [address] 07/21/2024 1:45 PM EDT Office Visit Hematology/Oncology [facility] [place] [address] [phone] Dakota Armando MD [address] [place] [address] 07/24/2024 11:40 AM EDT Office Visit Family Practice [facility] [address] [place] [address] Sergio Barriga MD [address] [place] [address] Scheduled Procedures Name Priority Associated Diagnoses Date/Ti [...] this encounter Medical Devices Implanted Type Area Special Education Kindergarten Teacher Device Identifier Shelf Expiration Date Model / Serial / Lot Duraclip 16mm Xlg [facility] - [id number] Implanted:Qty : 1 on 07/17/2021 by Guillermo Jones DO at ENDOSCOPY [facility] [place] [employer] [id number] 01/10/2024 [id number] / / [id number] Stent Viabil Biliary [id number] - [id number] Implanted:Qty : 1 on 07/17/2021 by Guillermo Jones DO at ENDOSCOPY [facility] [place] [employer] [id number] 03/04/2024 [id number] / [id number] / [id number] Port Implant W/8f Poly Cath - [id number] Implanted:Qty : 1 on 09/13/2023 by Gary Rodriguez DO at OR [facility] Right: Chest CR BARD : PERIPHERAL VASCULAR [id number] 04/24/2025 [id number] / / [id number] documented as of this encounter Visit Diagnoses [...] mg 0.4 mg, IV Push, ONCE, On Sat12/24/23 at 1115, For 1 dose, Give before CPT-11 Given 12/24/2023 1:39 PM EST 0.4 mg D5W IV solution Intravenous, at 50 mL/hr, CONTINUOUS, Starting on Sat12/24/23 at 1115, Until Sat12/24/23 at 1931 Start Infusion 12/24/2023 10:52 AM EST 500 mL 50 mL/hr Fluorouracil (5-Fu) 4,300 mg for Home Infusion 4,300 mg (rounded from 4,296 mg = 2,400 mg/m2 1.79 m2 Treatment Plan BSA from Recorded weight), Intravenous, Administer over 46 Hours, Home Infusion Pharmacy to specify base solution and volume., ONCE, 1 dose, On Sat12/24/23 at 1230 Start Infusion 12/24/2023 3:17 PM EST 4,300 mg 3 mL/hr Fosaprepitant Dimeglumine (Emend) 150 mg, ondansetron (Zofran) 16 mg, dexamethasone sodium phosphate 12 mg in NSS 250 mL Infusion 150 mg, IV Piggyback, ONCE, 1 dose, On Sat12/24/23 at 1115, Administer over 30 Minutes, Give 30 minutes prior to chemotherapy. Infuse over 30 minutes. Start Infusion 12/24/2023 10:52 AM EST 150 mg 500 mL/hr irinotecan HCl (Camptosar) 260 mg in D5W 500 mL infusion 260 mg (rounded from 268.5 mg = 150 mg/m2 1.79 m2 Treatment Plan BSA from Recorded weight), IV Piggyback, ONCE, 1 dose, On Sat12/24/23 at 1115, Administer over 90 Minutes, PROTECT FROM LIGHT Start Infusion 12/24/2023 1:39 PM EST 260 mg 333.33 mL/hr leucovorin calcium 700 mg in D5W 250 mL INFUSION 700 mg (rounded from 716 mg = 400 mg/m2 1.79 m2 Treatment Plan BSA from Recorded weight), IV Piggyback, ONCE, 1 dose, On Sat12/24/23 at 1115, Administer over 90 Minutes, Run concurrently with irinotecan immediately prior to 5FU Start Infusion 12/24/2023 1:39 PM EST 700 mg 166.67 mL/hr Oxaliplatin (Eloxatin) 150 mg in D5W 500 mL infusion 150 mg (rounded from 152.15 mg = 85 mg/m2 1.79 m2 Treatment Plan BSA from Recorded weight), IV Piggyback, ONCE, 1 dose, On Sat12/24/23 at 1115, Administer over 120 Minutes, Flush with D5W only! 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
--- OUTSIDE RECORDS SUMMARY | 2024-04-19 00:03 | External Medical Summary | Summary of Care ---
Author Name Unknown Organization [facility] Address [address] [place] [address] Phone [phone] Care Team Providers Care Size Cutter Name Role Phone Sergio Barriga MD Primary [...] 0.5 MG Dakota Armando MD [address] [place], [place] [address] Anc Hem/Onc [facility] [place] DEPT CLOSED - 10/08/23 200 [facility] [place] [address] Referral ID Status Reason Start Date Expiration Date V isits Requested Visits Authorized [id number] Authorized 08/30/2023 11/24/2099 999 99 Encounter Details Date Type Department Care Team (Latest Contact Info) Description 12/24/2023 10:30 AM EST Hem/Onc Treatment Hematology/Oncolog y Treatment, [place] [address] [place] [phone] Rehana, Chair 11 Hem Onc Scenery [address] [place] [address] Encounter for antineoplastic chemotherapy*; Metastasis to liver [...] mouth in the morning. 0 Active Pancrelipase (Xui-Inie-Qiiu) 55[address] UNIT Oral Capsule Delayed Release Particles (Creon 26159) 2 cap with meals, 1 with larger [...] 10/16/2022 Coronary artery disease invo lving [place] coronary artery of [place] heart without angina pectoris 08/20/2022 Overview: Severe [...] lipids WNL Factor V+heteroqygous. 04/10 colon-Dr Case [facility] 2 polyps 1 tubular adenoma. Kevin 6y 2013 sleep study [facility] WNL [address] Elena [facility] Essential hypertension with goal blood pressure less [...] WNL, antiphos lipids WNL Factor V+heteroqygous. FM HW-IDRA-EMAJT DIS NEC documented as of this encounter (statuses as of 01/16/2024) Immunizations Name Administration Dates Next Due COVID-19 mRNA, LNP-s, No Pre serve, 2-Dose Series ([employer]) 01/13/2022,07/21/2021,02/01/2021,01/04 COVID-19, MRNA-LNP, 23-24, P F, 30 MCG/0.3 mL, 12 YRS AND ABOVE, IM ([facility]) 09/12/2023 Covid-19, Mrna, Lnp-s, Pf, B ivalent, 30 Mcg, IM, 12 yrs and above ([employer]) 08/16/2022 HEP A - Hepatitis A (Adult [...] Description 01/20/2024 9:10 AM EST Laboratory Laboratory [facility] [place] [address] [place] [phone] [place], Lab [facility] 200 [facility] [place] [address] 01/21/2024 9:15 AM EST Hem/Onc Treatment Hematology/Oncology Treatment, [place] [address] [place] [phone] [place], Chair 8 Hem Onc [address] [place] [address] 01/27/2024 11:00 AM EST Imaging Radiology [facility] 1st [facility], [place] 132 [facility] [place] [id number] 02/04/2024 8:45 AM EDT Office Visit Hematology/Oncology [facility] [place] [address] [phone] Dakota Armando MD 200 [facility] [place] [address] 07/20/2024 10:15 AM EDT Office Visit Dermatology [facility] [place] [address] [place] [address] Cal Jernigan MD 200 [facility] [place] [address] 07/21/2024 1:45 PM EDT Office Visit Hematology/Oncology [facility] [place] [address] [phone] Dakota Armando MD [address] [facility] [place] [address] 07/24/2024 11:40 AM EDT Office Visit Family Practice [facility] [address] [place] [address] Sergio Barriga MD [address] [place] [address] Scheduled Procedures Name Priority Associated Diagnoses Date/Ti [...] this encounter Medical Devices Implanted Type Area Smooth Stucco Resurfacer Device Identifier Shelf Expiration Date Model / Serial / Lot Duraclip 16mm Xlg [facility] [id number] Implanted:Qty : 1 on 07/17/2021 by Guillermo Jones DO at [place] [facility] [place] [employer] [id number] 01/10/2024 [id number] / / [id number] Stent Viabil Biliary [id number] - [id number] Implanted:Qty : 1 on 07/17/2021 by Guillermo Jones DO at [place] [facility] [place] [employer] [id number] 03/04/2024 [id number] / [id number] / [id number] Port Implant W/8f Poly Cath - [id number] Implanted:Qty : 1 on 09/13/2023 by Gary Rodriguez DO at OR [facility] Right: Chest CR BARD : PERIPHERAL VASCULAR [id number] 04/24/2025 [id number] / / [id number] documented as of this encounter Visit Diagnoses [...] Documents on File Type Date Recorded 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
--- OUTSIDE RECORDS SUMMARY | 2024-04-19 00:03 | External Medical Summary | Summary of Care ---
Author Name Unknown Organization [facility] Address [address] [place] [address] Phone [phone] Care Team Providers Care Manager Media Name Role Phone Sergio Barriga MD Primary [...] 0.5 MG Dakota Armando MD [address] [place], [place] [address] Anc Hem/Onc [facility] Rehana DEPT CLOSED - 10/08/23 200 [facility] [place] [address] Referral ID Status Reason Start Date Expiration Date V isits Requested Visits Authorized [id number] Authorized 08/30/2023 11/24/2099 999 99 Encounter Details Date Type Department Care Team (Latest Contact Info) Description 12/24/2023 10:30 AM EST Hem/Onc Treatment Hematology/Oncolog y Treatment, [place] [address] [place] [phone] Rehana, Chair 11 Hem Onc Scenery [address] [place] [address] Encounter for antineoplastic chemotherapy*; Metastasis to liver [...] mouth in the morning. 0 Active Pancrelipase (Sde-Dihn-Ojbj) 45074-10205 UNIT Oral Capsule Delayed Release Particles (Creon 68780) 2 cap with meals, 1 with larger [...] WNL, antiphos lipids WNL Factor V+heteroqygous. FM DH-TOEN-APRMP DIS NEC documented as of this encounter (statuses as of 01/16/2024) Immunizations Name Administration Dates Next Due COVID-19 mRNA, LNP-s, No Pre serve, 2-Dose Series (Siteminis) 01/13/2022,07/21/2021,02/01/2021,01/04 COVID-19, MRNA-LNP, 23-24, P F, 30 MCG/0.3 mL, 12 YRS AND ABOVE, IM ([employer] Pharm[employer]) 09/12/2023 Covid-19, Mrna, Lnp-s, Pf, B ivalent, 30 Mcg, IM, 12 yrs and above (Siteminis) 08/16/2022 HEP A - Hepatitis A (Adult [...] EST Laboratory Laboratory [facility] [place] [address] [place] [phone] [place], Lab [facility] 200 [facility] [place] [address] 01/21/2024 9:15 AM EST Hem/Onc Treatment Hematology/Oncology Treatment, [place] [address] [place] [phone] Rehana, Chair 8 Hem On[address] [place] [address] 01/27/2024 11:00 AM EST Imaging Radiology [facility] 1st [facility] [place] 132 [facility] [place] [id number] 02/04/2024 8:45 AM EDT Office Visit Hematology/Oncology [facility] [place] [address] [phone] Dakota Armando MD 200 [facility] [place] [address] 07/20/2024 10:15 AM EDT Office Visit Dermatology [facility] [place] [address] [place] [address] Cal Jernigan MD 200 [facility] [place] [address] 07/21/2024 1:45 PM EDT Office Visit Hematology/Oncology [facility] [place] [address] [phone] Dakota Armando MD [address] [place] [facility] [place] [address] 07/24/2024 11:40 AM EDT Office Visit Family Practice [facility] [address] [place] [address] Sergio Barriga MD [address] [place] [address] Scheduled Procedures Name Priority Associated Diagnoses Date/Ti [...] this encounter Medical Devices Implanted Type Area Graphics Software Engineer Device Identifier Shelf Expiration Date Model / Serial / Lot Duraclip 16mm Xlg [facility] [id number] Implanted:Qty : 1 on 07/17/2021 by Guillermo Jones DO at ENDOSCOPY [facility] [employer] [id number] 01/10/2024 [id number] / / [id number] Stent Viabil Biliary [id number] - [id number] Implanted:Qty : 1 on 07/17/2021 by Guillermo Jones DO at ENDOSCOPY [facility] [employer] [id number] 03/04/2024 [id number] / [id number] / [id number] Port Implant W/8f Poly Cath - [id number] Implanted:Qty : 1 on 09/13/2023 by Gary Rodriguez DO at OR [facility] Right: Chest CR BARD : PERIPHERAL VASCULAR [id number] 04/24/2025 [id number] / / [id number] documented as of this encounter Visit Diagnoses [...] Documents on File Type Date Recorded 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
--- OUTSIDE RECORDS SUMMARY | 2024-04-19 00:03 | External Medical Summary | Summary of Care ---
Author Name Unknown Organization [facility] Address [address] [place] [address] Phone [phone] Care Team Providers Care Childcare Attendant Name Role Phone Sergio Barriga MD Primary [...] Armando MD [address] [place] [place], [place] [address] Anc Hem/Onc [facility] DEPT CLOSED - 10/08/23 [address] [place] [address] Referral ID Status Reason Start Date Expiration Date V isits Requested Visits Authorized [id number] Authorized 08/30/2023 11/24/2099 999 99 Encounter Details Date Type Department Care Team (Latest Contact Info) Description 12/10/2023 9:00 AM EST Hem/Onc Treatment Hematology/Oncolog y Treatment, [place] [address] [place] [phone] Rehana, Chair 3 Hem Onc Scenery [address] [place] [address] Encounter for antineoplastic chemotherapy*; Metastasis to liver [...] mouth in the morning. 0 Active Pancrelipase (Pun-Zeka-Klmj) 30295-77729 UNIT Oral Capsule Delayed Release Particles (Creon 17473) 2 cap with meals, 1 with larger [...] -19) 10/16/2022 Coronary artery disease invo lving [place] coronary artery of [place] heart without angina pectoris 08/20/2022 Overview: Severe [...] Factor V+heteroqygous. 04/10 colon-Dr Case [facility] 2 polyps 1 tubular adenoma. Kevin 5y 2013 sleep study [facility] WNL [address] Elena [facility] Essential hypertension with goal blood pressure less [...] WNL, antiphos lipids WNL Factor V+heteroqygous. FM ZI-KKNG-PNPWY DIS NEC documented as of this encounter (statuses as of 01/18/2024) Immunizations Name Administration Dates Next Due COVID-19 mRNA, LNP-s, No Pre serve, 2-Dose Series (Placeling) 01/13/2022,07/21/2021,02/01/2021,01/04 COVID-19, MRNA-LNP, 23-24, P F, 30 MCG/0.3 mL, 12 YRS AND ABOVE, IM ([employer]-NOW[employer] Innovations[employer]Arctrieval) 09/12/2023 Covid-19, Mrna, Lnp-s, Pf, B ivalent, 30 Mcg, IM, 12 yrs and above (Placeling) 08/16/2022 HEP A - Hepatitis A (Adult [...] Description 01/20/2024 9:10 AM EST Laboratory Laboratory [facility] [place] [address] [place] [phone] Rehana, Lab Scenery [address] [place] [address] 01/21/2024 9:15 AM EST Hem/Onc Treatment Hematology/Oncology Treatment, [place] [address] [place] [phone] Rehana, Chair 8 Hem Onc [facility] [address] [place] [address] [address] 01/27/2024 11:00 AM EST Imaging Radiology [address] [facility] [address] 02/04/2024 8:45 AM EDT Office Visit Hematology/Oncology [facility] Rehana [place] [address] [place] [phone] Dakota Armando MD [address] [place] [address] 07/20/2024 10:15 AM EDT Office Visit Dermatology [facility] [place] [address] [place] [address] Cal Jernigan MD [address] [place] [address] 07/21/2024 1:45 PM EDT Office Visit Hematology/Oncology [facility] [place] [address] [place] [phone] Dakota Armando MD [address] [address] 07/24/2024 11:40 AM EDT Office Visit Family Practice [facility] 132 [facility] [place] [address] Sergio Barriga MD [address] [place] [address] Scheduled Procedures Name Priority Associated Diagnoses Date/Ti [...] this encounter Medical Devices Implanted Type Area Wood Sash And Frame Carpenter Device Identifier Shelf Expiration Date Model / Serial / Lot Duraclip 16mm Xlg Repostn - [id number] Implanted:Qty : 1 on 07/17/2021 by Guillermo Jones DO at ENDOSCOPY [facility] [employer]amel[employer] REYNALDO [id number] 01/10/2024 [id number] / / [id number] Stent Viabil Biliary [id number] - [id number] Implanted:Qty : 1 on 07/17/2021 by Guillermo Jones DO at ENDOSCOPY [facility] [employer] [id number] 03/04/2024 [id number] / [id number] / [id number] Port Implant W/8f Poly Cath - [id number] Implanted:Qty : 1 on 09/13/2023 by Gary Rodriguez DO at OR [facility] Right: Chest CR BARD : PERIPHERAL VASCULAR [id number] 04/24/2025 [id number] / / [id number] documented as of this encounter Results * (ABNORMAL) CA 19-9 (12/23/2023 9:26 AM EST) CA 19-9 461.2(H) <35.0 U/mL 12/23/2023 6:49 PM EST LABORATORY [facility] Blood Venous blood specimen / Unknown Venipuncture / Unknown 12/23/2023 9:26 AM EST 12/23/2023 9:26 AM EST Dakota Armando MD LAB BLOOD ORDERABLES [facility] [address] [place] [address] documented in this encounter [...] Documents on File Type Date Recorded 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
--- OUTSIDE RECORDS SUMMARY | 2024-04-19 00:03 | External Medical Summary | Summary of Care ---
Author Name Unknown Organization [facility] Address [address] [place] [address] Phone [phone] Care Team Providers Care Bottom Stainer Name Role Phone Sergio Barriga MD Primary [...] 0.5 MG Dakota Armando MD [address] [place], [place] [address] Anc Hem/Onc [facility] Re[place] DEPT CLOSED - 10/08/23 200 [facility] [place] [address] Referral ID Status Reason Start Date Expiration Date V isits Requested Visits Authorized [id number] Authorized 08/30/2023 11/24/2099 999 99 Encounter Details Date Type Department Care Team (Latest Contact Info) Description 12/24/2023 10:30 AM EST Hem/Onc Treatment Hematology/Oncolog y Treatment, [place] [address] [place] [phone] Rehana, Chair 11 Hem Onc Scenery [address] [place] [address] Encounter for antineoplastic chemotherapy*; Metastasis to liver [...] mouth in the morning. 0 Active Pancrelipase (Auj-Pknt-Tbvh) 42341-12932 UNIT Oral Capsule Delayed Release Particles (Creon 05823) 2 cap with meals, 1 with larger [...] WNL, antiphos lipids WNL Factor V+heteroqygous. FM LR-TUPF-NRYRU DIS NEC documented as of this encounter (statuses as of 01/16/2024) Immunizations Name Administration Dates Next Due COVID-19 mRNA, LNP-s, No Pre serve, 2-Dose Series (Clicktivated) 01/13/2022,07/21/2021,02/01/2021,01/04 COVID-19, MRNA-LNP, 23-24, P F, 30 MCG/0.3 mL, 12 YRS AND ABOVE, IM ([facility]) 09/12/2023 Covid-19, Mrna, Lnp-s, Pf, B ivalent, 30 Mcg, IM, 12 yrs and above (Clicktivated) 08/16/2022 HEP A - Hepatitis A (Adult [...] Description 01/20/2024 9:10 AM EST Laboratory Laboratory [facility] [place] [address] [place] [phone] [place], Lab [facility] 200 [facility] [place] [address] 01/21/2024 9:15 AM EST Hem/Onc Treatment Hematology/Oncology Treatment, [place] [address] [place] [phone] Rehana, Chair 8 Hem Onc [address] [place] [address] 01/27/2024 11:00 AM EST Imaging Radiology [facility] 1st [facility], [place] 132 [facility] [place] [id number] 02/04/2024 8:45 AM EDT Office Visit Hematology/Oncology [facility] [place] [address] [phone] Dakota Armando MD 200 [place] [address] 07/20/2024 10:15 AM EDT Office Visit Dermatology [facility] [place] [address] [place] [address] Cal Jernigan MD 200 [facility] [place] [address] 07/21/2024 1:45 PM EDT Office Visit Hematology/Oncology [facility] [place] [address] [phone] Dakota Armando MD [address] [facility] [place] [address] 07/24/2024 11:40 AM EDT Office Visit Family Practice [facility] [address] [place] [address] Sergio Barriga MD [address] [place] [address] Scheduled Procedures Name Priority Associated Diagnoses Date/Ti [...] this encounter Medical Devices Implanted Type Area Mergers And Acquisitions Associate Device Identifier Shelf Expiration Date Model / Serial / Lot Duraclip 16mm Xlg [facility] - [id number] Implanted:Qty : 1 on 07/17/2021 by Guillermo Jones DO at ENDOSCOPY [facility] [employer] [id number] 01/10/2024 [id number] / / [id number] Stent Viabil Biliary [id number] - [id number] Implanted:Qty : 1 on 07/17/2021 by Guillermo Jones DO at ENDOSCOPY [facility] [employer] [id number] 03/04/2024 [id number] / [id number] / [id number] Port Implant W/8f Poly Cath - [id number] Implanted:Qty : 1 on 09/13/2023 by Gary Rodriguez DO at OR [facility] Right: Chest CR BARD : PERIPHERAL VASCULAR [id number] 04/24/2025 [id number] / / [id number] documented as of this encounter Visit Diagnoses [...] Documents on File Type Date Recorded Patient Authorization Nurse Expl anation Advance Directives and Living [...] Agen t (per Health Care Power of Boilermaker Apprentice document) [email or web address] Temo Cramer Sibling First Alternate Health Care Agent (per Health Care Power of Boilermaker Apprentice document) Care Teams Bottom Stainer Relationship Specialty Start Date End Date Sergio Barriga MD [address] [place] [address] PCP - General Family Medicine 08/07/19 documented as of this encounter
--- OUTSIDE RECORDS SUMMARY | 2024-04-19 00:03 | External Medical Summary | Summary of Care ---
Author Name Unknown Organization [facility] Address [address] [place] [address] Phone [phone] Care Team Providers Care Manager Medical Device Name Role Phone Sergio Barriga MD Primary [...] Armando MD [address] [employer], [place] [address] Anc Hem/Onc [facility] DEPT CLOSED - 10/08/23 [address] [address] Referral ID Status Reason Start Date Expiration Date V isits Requested Visits Authorized [id number] Authorized 08/30/2023 11/24/2099 999 99 Encounter Details Date Type Department Care Team (Latest Contact Info) Description 12/10/2023 9:00 AM EST Hem/Onc Treatment Hematology/Oncolog y Treatment, [place] [address] [place] [phone] Rehana, Chair 3 Hem Onc Scenery [address] [place] [address] Encounter for antineoplastic chemotherapy*; Metastasis to liver [...] mouth in the morning. 0 Active Pancrelipase (Xoc-Flpl-Shhh) 60[address] UNIT Oral Capsule Delayed Release Particles (Creon 73004) 2 cap with meals, 1 with larger [...] -19) 10/16/2022 Coronary artery disease invo lving [place] coronary artery of [place] heart without angina pectoris 08/20/2022 Overview: [...] lipids WNL Factor V+heteroqygous. 04/10 colon-Dr Case [facility] 2 polyps 1 tubular adenoma. Kevin 5y 2013 sleep study [facility] WNL [address] Elena [facility] Essential hypertension with goal blood [...] WNL, antiphos lipids WNL Factor V+heteroqygous. FM IX-HJYJ-PURIR DIS NEC documented as of this encounter (statuses as of 01/18/2024) Immunizations Name Administration Dates Next Due COVID-19 mRNA, LNP-s, No Pre serve, 2-Dose Series (Lime&Tonic) 01/13/2022,07/21/2021,02/01/2021,01/04 COVID-19, MRNA-LNP, 23-24, P F, 30 MCG/0.3 mL, 12 YRS AND ABOVE, IM ([employer]rowdsourcing[employer]orgirAktifmob [employer]) 09/12/2023 Covid-19, Mrna, Lnp-s, Pf, B ivalent, 30 Mcg, IM, 12 yrs and above (Lime&Tonic) 08/16/2022 HEP A - Hepatitis A (Adult [...] Description 01/20/2024 9:10 AM EST Laboratory Laboratory [facility] [place] [address] [place] [phone] Rehana, Lab Scenery [address] [place] [address] 01/21/2024 9:15 AM EST Hem/Onc Treatment Hematology/Oncology Treatment, [place] [address] [place] [phone] Rehana, Chair 8 Hem Onc [facility] [address] [place] [address] 01/27/2024 11:00 AM EST Imaging Radiology [address] 132 [facility] [address] 02/04/2024 8:45 AM EDT Office Visit Hematology/Oncology [facility] Rehana [place] [address] [place] [phone] Dakota Armando MD [address] [place] [address] 07/20/2024 10:15 AM EDT Office Visit Dermatology [facility] [place] [address] [place] [address] Cal Jernigan MD [address] [place] [address] 07/21/2024 1:45 PM EDT Office Visit Hematology/Oncology [facility] [place] [address] [place] [phone] Dakota Armando MD [address] [place] [address] [address] 07/24/2024 11:40 AM EDT Office Visit Family Practice [facility] 132 [facility] [place] [address] Sergio Barriga MD [address] [place] [address] Scheduled Procedures Name Priority Associated Diagnoses Date/Ti [...] this encounter Medical Devices Implanted Type Area Grain Grader Device Identifier Shelf Expiration Date Model / Serial / Lot Duraclip 16mm Xlg Repostn - [id number] Implanted:Qty : 1 on 07/17/2021 by Guillermo Jones DO at ENDOSCOPY [facility] [employer] REYNALDO [id number] 01/10/2024 [id number] / / [id number] Stent Viabil Biliary [id number] - [id number] Implanted:Qty : 1 on 07/17/2021 by Guillermo Jones DO at ENDOSCOPY [facility] [employer] [id number] 03/04/2024 [id number] / [id number] / [id number] Port Implant W/8f Poly Cath - [id number] Implanted:Qty : 1 on 09/13/2023 by Gary Rodriguez DO at OR [facility] Right: Chest CR BARD : PERIPHERAL VASCULAR [id number] 04/24/2025 [id number] / / [id number] documented as of this encounter Results * (ABNORMAL) CA 19-9 (12/23/2023 9:26 AM EST) CA 19-9 461.2(H) <35.0 U/mL 12/23/2023 6:49 PM EST LABORATORY [facility] Blood Venous blood specimen / Unknown Venipuncture / Unknown 12/23/2023 9:26 AM EST 12/23/2023 9:26 AM EST Dakota Armando MD LAB BLOOD ORDERABLES LABORATORY [facility] [address] [place] [address] documented in this encounter Visit [...] Documents on File Type Date Recorded Patient Health Communications Specialist Expl anation Advance Directives and Living [...] Agen t (per Health Care Power of Landscape And Yardwork Laborer document) Temo Bela Sibling First Alternate Health Care Agent (per Health Care Power of Landscape And Yardwork Laborer document) [email or web address] Care Teams Manager Medical Device Relationship Specialty Start Date End Date Sergio Barriga MD [address] [place] [address] PCP - General Family Medicine 08/07/19 documented as of this encounter
--- OUTSIDE RECORDS SUMMARY | 2024-04-19 00:04 | External Medical Summary | Summary of Care ---
Author Name Unknown Organization [facility] Address [address] [place] [address] Phone [phone] Care Team Providers Care Aircraft Engine Dismantler Name Role Phone Sergio Barriga MD Primary [...] 0.5 MG Dakota Armando MD [address] [place], [place] [address] Anc Hem/Onc [facility] Rehana DEPT CLOSED - 10/08/23 200 [facility] [place] [address] Referral ID Status Reason Start Date Expiration Date V isits Requested Visits Authorized [id number] Authorized 08/30/2023 11/24/2099 999 99 Encounter Details Date Type Department Care Team (Latest Contact Info) Description 12/24/2023 10:30 AM EST Hem/Onc Treatment Hematology/Oncolog y Treatment, [place] [address] [place] [phone] Rehana, Chair 11 Hem Onc Scenery [address] [place] [address] Encounter for antineoplastic chemotherapy*; Metastasis to liver [...] mouth in the morning. 0 Active Pancrelipase (Qhm-Mnfk-Affc) 53218-523[address] UNIT Oral Capsule Delayed Release Particles (Creon 54889) 2 cap with meals, 1 with larger [...] -19) 10/16/2022 Coronary artery disease invo lving [place] coronary artery of [place] heart without angina pectoris 08/20/2022 Overview: Severe [...] lipids WNL Factor V+heteroqygous. 04/10 colon-Dr Case [facility] 2 polyps 1 tubular adenoma. Kevin 5y 2013 sleep study [facility] WNL [address] Elena [facility] Essential hypertension with goal blood [...] WNL, antiphos lipids WNL Factor V+heteroqygous. FM CP-WELJ-BMYIQ DIS NEC documented as of this encounter (statuses as of 01/16/2024) Immunizations Name Administration Dates Next Due COVID-19 mRNA, LNP-s, No Pre serve, 2-Dose Series ([employer]) 01/13/2022,07/21/2021,02/01/2021,01/04 COVID-19, MRNA-LNP, 23-24, P F, 30 MCG/0.3 mL, 12 YRS AND ABOVE, IM ([facility]) 09/12/2023 Covid-19, Mrna, Lnp-s, Pf, B ivalent, 30 Mcg, IM, 12 yrs and above ([employer]) 08/16/2022 HEP A - Hepatitis A (Adult [...] Description 01/20/2024 9:10 AM EST Laboratory Laboratory [facility] [place] [address] [place] [phone] [place], Lab [facility] 200 [facility] [place] [address] 01/21/2024 9:15 AM EST Hem/Onc Treatment Hematology/Oncology Treatment, [place] [address] [place] [phone] Rehana, Chair 8 Hem On[address] [place] [address] 01/27/2024 11:00 AM EST Imaging Radiology [facility] 1st [facility], [place] 132 [facility] [place] [id number] 02/04/2024 8:45 AM EDT Office Visit Hematology/Oncology [facility] [place] [address] [phone] Dakota Armando MD 200 [place] [address] 07/20/2024 10:15 AM EDT Office Visit Dermatology [facility] [place] [address] [place] [place] [address] Cal Jernigan MD 200 [facility] [place] [address] 07/21/2024 1:45 PM EDT Office Visit Hematology/Oncology [facility] [place] [address] [place] [phone] Dakota Armando MD [address] [place] [facility] [address] 07/24/2024 11:40 AM EDT Office Visit Family Practice [facility] [address] [place] [address] Sergio Barriga MD [address] [place] [address] Scheduled Procedures Name Priority Associated Diagnoses Date/Ti [...] this encounter Medical Devices Implanted Type Area Candle Wrapper Device Identifier Shelf Expiration Date Model / Serial / Lot Duraclip 16mm Xlg [facility] [id number] Implanted:Qty : 1 on 07/17/2021 by Guillermo Jones DO at ENDOSCOPY [facility] [employer] [id number] 01/10/2024 [id number] / / [id number] Stent Viabil Biliary [id number] - [id number] Implanted:Qty : 1 on 07/17/2021 by Guillermo Jones DO at [facility]COPY [facility] [employer] [id number] 03/04/2024 [id number] / [id number] / [id number] Port Implant W/8f Poly Cath - [id number] Implanted:Qty : 1 on 09/13/2023 by Gayr Rodriguez DO at OR [facility] Right: Chest CR BARD : PERIPHERAL VASCULAR [id number] 04/24/2025 [id number] / / [id number] documented as of this encounter Visit Diagnoses [...] Documents on File Type Date Recorded Patient Quick Technician Expl anation Advance Directives and Living [...] Agen t (per Health Care Power of Stand Up Forklift Operator document) [email or web address] Temo Cramer Sibling First Alternate Health Care Agent (per Health Care Power of Stand Up Forklift Operator document) Care Teams Aircraft Engine Dismantler Relationship Specialty Start Date End Date Sergio Barriga MD [address] [place] [address] PCP - General Family Medicine 08/07/19 documented as of this encounter
--- OUTSIDE RECORDS SUMMARY | 2024-04-19 00:04 | External Medical Summary | Summary of Care ---
Author Name Unknown Organization [facility] Address [address] [place] [address] Phone [phone] Care Team Providers Care General Teller Name Role Phone Sergio Barriga MD Primary [...] 0.5 MG Dakota Armando MD [address] [place], [place] [address] Anc Hem/Onc [facility] [place] DEPT CLOSED - 10/08/23 200 [facility] [place] [address] Referral ID Status Reason Start Date Expiration Date V isits Requested Visits Authorized [id number] Authorized 08/30/2023 11/24/2099 999 99 Encounter Details Date Type Department Care Team (Latest Contact Info) Description 12/24/2023 10:30 AM EST Hem/Onc Treatment Hematology/Oncolog y Treatment, [place] [address] [place] [phone] [place], Chair 11 Hem Onc Scenery [address] [place] [address] Encounter for antineoplastic chemotherapy*; Metastasis to liver [...] mouth in the morning. 0 Active Pancrelipase (Ogz-Brno-Jcvw) 54065-30651 UNIT Oral Capsule Delayed Release Particles (Creon 66990) 2 cap with meals, 1 with larger [...] 10/16/2022 Coronary artery disease invo lving [place] coronary artery of [place] heart without angina pectoris 08/20/2022 Overview: Severe [...] WNL Factor V+heteroqygous. 04/10 colon-Dr Case [facility] 2 polyps 1 tubular adenoma. Kevin 5y 2013 sleep study [facility] WNL [address] Elena [facility] [...] WNL, antiphos lipids WNL Factor V+heteroqygous. FM QE-XORZ-FAXHT DIS NEC documented as of this encounter (statuses as of 01/16/2024) Immunizations Name Administration Dates Next Due COVID-19 mRNA, LNP-s, No Pre serve, 2-Dose Series (Guerrilla RF) 01/13/2022,07/21/2021,02/01/2021,01/04 COVID-19, MRNA-LNP, 23-24, P F, 30 MCG/0.3 mL, 12 YRS AND ABOVE, IM ([facility]) 09/12/2023 Covid-19, Mrna, Lnp-s, Pf, B ivalent, 30 Mcg, IM, 12 yrs and above (Guerrilla RF) 08/16/2022 HEP A - Hepatitis A (Adult [...] Description 01/20/2024 9:10 AM EST Laboratory Laboratory [facility] [place] [address] [place] [phone] [place], Lab [facility] 200 [facility] [place] [address] 01/21/2024 9:15 AM EST Hem/Onc Treatment Hematology/Oncology Treatment, [place] [address] [place] [phone] [place], Chair 8 Hem On[address] [place] [address] 01/27/2024 11:00 AM EST Imaging Radiology [facility] 1st [facility], [place] [address] [facility] [place] [id number] 02/04/2024 8:45 AM EDT Office Visit Hematology/Oncology [facility] [place] [address] [phone] Dakota Armando MD 200 [facility] [place] [address] 07/20/2024 10:15 AM EDT Office Visit Dermatology [facility] [place] [address] [place] [place] [address] Cal Jernigan MD 200 [facility] [place] [address] 07/21/2024 1:45 PM EDT Office Visit Hematology/Oncology [facility] [place] [address] [phone] Dakota Armando MD [address] [facility] [place] [address] 07/24/2024 11:40 AM EDT Office Visit Family Practice [facility] [address] [place] [address] Sergio Barriga MD [address] [place] [address] Scheduled Procedures Name Priority Associated Diagnoses Date/Ti [...] this encounter Medical Devices Implanted Type Area Device Sales Consultant Device Identifier Shelf Expiration Date Model / Serial / Lot Duraclip 16mm Xlg [facility] - [id number] Implanted:Qty : 1 on 07/17/2021 by Guillermo Jones DO at [place]OS[place] [facility] [employer] [id number] 01/10/2024 [id number] / / [id number] Stent Viabil Biliary [id number] - [id number] Implanted:Qty : 1 on 07/17/2021 by Guillermo Jones DO at ENDOSCOPY [facility] [employer] [id number] 03/04/2024 [id number] / [id number] / [id number] Port Implant W/8f Poly Cath - [id number] Implanted:Qty : 1 on 09/13/2023 by Gary Rodriguez DO at OR [facility] Right: Chest CR BARD : PERIPHERAL VASCULAR [id number] 04/24/2025 [id number] / / [id number] documented as of this encounter Visit Diagnoses [...] Documents on File Type Date Recorded Patient Reimbursement Rep Expl anation Advance Directives and Living Will [...] Agen t (per Health Care Power of Taper And Floater document) International[employer] Temo Cramer Sibling First Alternate Health Care Agent (per Health Care Power of Taper And Floater document) [email or web address] Care Teams General Teller Relationship Specialty Start Date End Date Sergio Barriga MD [address] [place] [address] PCP - General Family Medicine 08/07/19 documented as of this encounter
--- OUTSIDE RECORDS SUMMARY | 2024-04-19 00:04 | External Medical Summary | Summary of Care ---
Author Name Unknown Organization [facility] Address [address] [place] [address] Phone [phone] Care Team Providers Care Fish Hatchery Supervisor Name Role Phone Sergio Barriga MD [...] 0.5 MG Dakota Armando MD [address] [place], [place] [address] Anc Hem/Onc [facility] [place] DEPT CLOSED - 10/08/23 200 [facility] [place] [phone] Referral ID Status Reason Start Date Expiration Date V isits Requested Visits Authorized [id number] Authorized 08/30/2023 11/24/2099 999 99 Encounter Details Date Type Department Care Team (Latest Contact Info) Description 12/24/2023 10:30 AM EST Hem/Onc Treatment Hematology/Oncolog y Treatment, [place] [address] [place] [phone] Reh[place], Chair 11 Hem Onc Scenery [address] [place] [address] Encounter for antineoplastic chemotherapy*; Metastasis to liver [...] mouth in the morning. 0 Active Pancrelipase (Gbv-Cinc-Kgjq) 20649-61204 UNIT Oral Capsule Delayed Release Particles (Creon 85135) 2 cap with meals, 1 with larger [...] -19) 10/16/2022 Coronary artery disease invo lving [place] coronary artery of [place] heart without angina pectoris 08/20/2022 Overview: Severe [...] Factor V+heteroqygous. 04/10 colon-Dr Case [facility] 2 polyps 1 tubular adenoma. Kevin 5y 2013 sleep study [facility] WNL [address] Elena [facility] Essential hypertension with goal blood pressure [...] WNL, antiphos lipids WNL Factor V+heteroqygous. FM UA-OZJA-ZJEDX DIS NEC documented as of this encounter (statuses as of 01/16/2024) Immunizations Name Administration Dates Next Due COVID-19 mRNA, LNP-s, No Pre serve, 2-Dose Series (Tokopedia) 01/13/2022,07/21/2021,02/01/2021,01/04 COVID-19, MRNA-LNP, 23-24, P F, 30 MCG/0.3 mL, 12 YRS AND ABOVE, IM (BuysightCox SouthUnigo) 09/12/2023 Covid-19, Mrna, Lnp-s, Pf, B ivalent, 30 Mcg, IM, 12 yrs and above (Tokopedia) 08/16/2022 HEP A - Hepatitis A (Adult [...] EST Laboratory Laboratory [facility] [place] [address] [place] [phone] [place], Lab [facility] 200 [facility] [place] [address] 01/21/2024 9:15 AM EST Hem/Onc Treatment Hematology/Oncology Treatment, [place] [address] [place] [phone] [place], Chair 8 Hem On[address] [place] [address] 01/27/2024 11:00 AM EST Imaging Radiology [facility] 1st [facility], [place] 132 [facility] [place] [id number] 02/04/2024 8:45 AM EDT Office Visit Hematology/Oncology [facility] [place] [address] [phone] Dakota Armando MD 200 [facility] [place] [place] [address] 07/20/2024 10:15 AM EDT Office Visit Dermatology [facility] [place] [address] [place] [place] [address] Cal Jernigan MD 200 [facility] [place] [address] 07/21/2024 1:45 PM EDT Office Visit Hematology/Oncology [facility] [place] [address] [phone] Dakota Armando MD [address] [place] [facility] [address] 07/24/2024 11:40 AM EDT Office Visit Family Practice [facility] [address] [place] [address] Sergio Barriga MD [address] [place] [address] Scheduled Procedures Name Priority Associated Diagnoses Date/Ti [...] this encounter Medical Devices Implanted Type Area Cloth Edge Singer Device Identifier Shelf Expiration Date Model / Serial / Lot Duraclip 16mm Xlg [facility] - [id number] Implanted:Qty : 1 on 07/17/2021 by Guillermo Jones DO at [place]OSCOPY [facility] [employer] [id number] 01/10/2024 [id number] / / [id number] Stent Viabil Biliary 23dsz0wd - [id number] Implanted:Qty : 1 on 07/17/2021 by Guillermo Jones DO at ENDOSCOPY [facility] [employer] [id number] 03/04/2024 [id number] / [id number] / [id number] Port Implant W/8f Poly Cath - [id number] Implanted:Qty : 1 on 09/13/2023 by Gary Rodriguez DO at OR [facility] Right: Chest CR BARD : PERIPHERAL VASCULAR [id number] 04/24/2025 [id number] / / [id number] documented as of this encounter Visit Diagnoses [...] on File Type Date Recorded Patient Machine Filler Servicer Expl anation Advance Directives and Living Will [...] Agen t (per Health Care Power of Dietitian Teaching document) [email or web address] Temo [email or web address] Sibling First Alternate Health Care Agent (per Health Care Power of Dietitian Teaching document) [email or web address] Care Teams Fish Hatchery Supervisor Relationship Specialty Start Date End Date Sergio Barriga MD [address] [place] [address] PCP - General Family Medicine 08/07/19 documented as of this encounter
--- OUTSIDE RECORDS SUMMARY | 2024-04-19 00:04 | External Medical Summary | Summary of Care ---
Author Name Unknown Organization [facility] Address [address] [place] [address] Phone [phone] Care Team Providers Care Peoplesoft Hcm Consultant Name Role Phone Sergio Barriga MD [...] 0.5 MG Dakota Armando MD [address] [place], [place] [address] Anc Hem/Onc [facility] [place] DEPT CLOSED - 10/08/23 200 [facility] [place] [address] Referral ID Status Reason Start Date Expiration Date V isits Requested Visits Authorized [id number] Authorized 08/30/2023 11/24/2099 999 99 Encounter Details Date Type Department Care Team (Latest Contact Info) Description 12/24/2023 10:30 AM EST Hem/Onc Treatment Hematology/Oncolog y Treatment, [place] [address] [place] [phone] Re[place], Chair 11 Hem Onc Scenery [address] [place] [address] Encounter for antineoplastic chemotherapy*; Metastasis to liver [...] mouth in the morning. 0 Active Pancrelipase (Vkc-Yvjc-Hicn) 53087-58910 UNIT Oral Capsule Delayed Release Particles (Creon 68009) 2 cap with meals, 1 with larger [...] -19) 10/16/2022 Coronary artery disease invo lving [place] coronary artery of [place] heart without angina pectoris 08/20/2022 Overview: Severe [...] V+heteroqygous. 04/10 colon-Dr Case [facility] 2 polyps 1 tubular adenoma. Kevin 5y 2013 sleep study [facility] WNL [address] Elena [facility] Essential hypertension with goal blood [...] WNL, antiphos lipids WNL Factor V+heteroqygous. FM BG-ZMQA-BPLIH DIS NEC documented as of this encounter (statuses as of 01/16/2024) Immunizations Name Administration Dates Next Due COVID-19 mRNA, LNP-s, No Pre serve, 2-Dose Series (Armasight) 01/13/2022,07/21/2021,02/01/2021,01/04 COVID-19, MRNA-LNP, 23-24, P F, 30 MCG/0.3 mL, 12 YRS AND ABOVE, IM ([employer]) 09/12/2023 Covid-19, Mrna, Lnp-s, Pf, B ivalent, 30 Mcg, IM, 12 yrs and above (Armasight) 08/16/2022 HEP A - Hepatitis A (Adult [...] Description 01/20/2024 9:10 AM EST Laboratory Laboratory [facility] [place] [address] [place] [phone] [place], Lab [facility] 200 [facility] [place] [address] 01/21/2024 9:15 AM EST Hem/Onc Treatment Hematology/Oncology Treatment, [place] [address] [place] [phone] [place], Chair 8 Hem On[address] [place] [address] 01/27/2024 11:00 AM EST Imaging Radiology [facility] 1st [facility], [place] 132 [facility] [place] [id number] 02/04/2024 8:45 AM EDT Office Visit Hematology/Oncology [facility] [place] [address] [phone] Dakota Armando MD 200 [place] [address] 07/20/2024 10:15 AM EDT Office Visit Dermatology [facility] [place] [address] [address] Cal Jernigan MD 200 [facility] [place] [address] 07/21/2024 1:45 PM EDT Office Visit Hematology/Oncology [facility] [place] [address] [phone] Dakota Armando MD [address] [place] [facility] [address] 07/24/2024 11:40 AM EDT Office Visit Family Practice [facility] [address] [place] [address] Sergio Barriga MD [address] [place] [address] Scheduled Procedures Name Priority Associated Diagnoses Date/Ti [...] encounter Medical Devices Implanted Type Area Wood Planer Device Identifier Shelf Expiration Date Model / Serial / Lot Duraclip 16mm Xlg [facility] - [id number] Implanted:Qty : 1 on 07/17/2021 by Guillermo Jones DO at [place] [facility] [place] [employer] [id number] 01/10/2024 [id number] / / [id number] Stent Viabil Biliary [id number] - [id number] Implanted:Qty : 1 on 07/17/2021 by Guillermo Jones DO at [facility]OS[place] [facility] [employer] [id number] 03/04/2024 [id number] / [id number] / [id number] Port Implant W/8f Poly Cath - [id number] Implanted:Qty : 1 on 09/13/2023 by Gary Rodriguez DO at OR [facility] Right: Chest CR BARD : PERIPHERAL VASCULAR [id number] 04/24/2025 [id number] / / [id number] documented as of this encounter Visit Diagnoses [...] Documents on File Type Date Recorded Patient Contract Specialist Expl anation Advance Directives and Living [...] Agen t (per Health Care Power of Manager Of Training And Development document) [email or web address] Temo Cramer Sibling First Alternate Health Care Agent (per Health Care Power of Manager Of Training And Development document) [email or web address] Care Teams Peoplesoft Hcm Consultant Relationship Specialty Start Date End Date Sergio Barriga MD [address] [place] [address] PCP - General Family Medicine 08/07/19 documented as of this encounter
--- OUTSIDE RECORDS SUMMARY | 2024-04-19 00:04 | External Medical Summary | Summary of Care ---
Author Name Unknown Organization [facility] Address [address] [place] [address] Phone [phone] Care Team Providers Care Junior Account Manager Name Role Phone Sergio Barriga MD [...] 0.5 MG Dakota Armando MD [address] [place], [place] [address] Anc Hem/Onc [facility] [place] DEPT CLOSED - 10/08/23 200 [facility] [place] [address] Referral ID Status Reason Start Date Expiration Date V isits Requested Visits Authorized [id number] Authorized 08/30/2023 11/24/2099 999 99 Encounter Details Date Type Department Care Team (Latest Contact Info) Description 12/24/2023 10:30 AM EST Hem/Onc Treatment Hematology/Oncolog y Treatment, [place] [address] [place] [phone] Reh[place], Chair 11 Hem Onc Scenery [address] [place] [address] Encounter for antineoplastic chemotherapy*; Metastasis to liver [...] mouth in the morning. 0 Active Pancrelipase (Gfw-Ucyq-Srsc) 91116-35[address] UNIT Oral Capsule Delayed Release Particles (Creon 85426) 2 cap with meals, 1 with larger snack. (up to 8/day) 240 Capsule 11 09/10/2022 Active Continuation of patient use of medical marijuana is approved Inhale 1 Capsule by mouth as needed. 0 09/10/2022 Active Pantoprazole Sodium 40 MG Oral Tablet Delayed Release (Protonix) TAKE 1 TABLET BY MOUTH EVERY MORNING 90 Tablet 3 07/03/2023 Active Lidocaine-Prilo clifotn 2.5-2.5 % External Cream (Emla)Indicatio ns:Malignant neoplasm [...] -19) 10/16/2022 Coronary artery disease invo lving [place] coronary artery of [place] heart without angina pectoris 08/20/2022 Overview: Severe [...] lipids WNL Factor V+heteroqygous. 04/10 colon-Dr Case [facility] 2 polyps 1 tubular adenoma. Kevin 5y 2013 sleep study [facility] WNL [address] lEena [facility] Essential hypertension with goal [...] WNL, antiphos lipids WNL Factor V+heteroqygous. FM TO-IAEC-TFHDV DIS NEC documented as of this encounter (statuses as of 01/16/2024) Immunizations Name Administration Dates Next Due COVID-19 mRNA, LNP-s, No Pre serve, 2-Dose Series (College[employer]) 01/13/2022,07/21/2021,02/01/2021,01/04 COVID-19, MRNA-LNP, 23-24, P F, 30 MCG/0.3 mL, 12 YRS AND ABOVE, IM ([facility]) 09/12/2023 Covid-19, Mrna, Lnp-s, Pf, B ivalent, 30 Mcg, IM, 12 yrs and above (CollegeBrain) 08/16/2022 HEP A - Hepatitis A (Adult [...] are elevated, per telephone encounter noteper Dr. Aramndo ok to treat since patient feels fine. [...] 01/20/2024 9:10 AM EST Laboratory Laboratory [facility] [place] [address] [place] [phone] [place], Lab [facility] 200 [facility] [place] [address] 01/21/2024 9:15 AM EST Hem/Onc Treatment Hematology/Oncology Treatment, [place] [address] [place] [phone] [place], Chair 8 Hem Onc [address] [place] [address] 01/27/2024 11:00 AM EST Imaging Radiology [facility] 1st [facility], [place] 132 [facility] [place] [id number] 02/04/2024 8:45 AM EDT Office Visit Hematology/Oncology [facility] [place] [address] [phone] Dakota Armando MD 200 [facility] [place] [address] 07/20/2024 10:15 AM EDT Office Visit Dermatology [facility] [place] [address] [place] [place] [address] Cal Jernigan MD 200 [facility] [place] [address] 07/21/2024 1:45 PM EDT Office Visit Hematology/Oncology [facility] [place] [address] [phone] Dakota Armando MD [address] [place] [facility] [place] [address] 07/24/2024 11:40 AM EDT Office Visit Family Practice [facility] [address] [place] [address] Sergio Barriga MD [address] [place] [address] Scheduled Procedures Name Priority Associated Diagnoses Date/Ti [...] encounter Medical Devices Implanted Type Area Senior Payroll Manager Device Identifier Shelf Expiration Date Model / Serial / Lot Duraclip 16mm Xlg [facility] - [id number] Implanted:Qty : 1 on 07/17/2021 by Guillermo Jones DO at [facility] [employer] [id number] 01/10/2024 [id number] / / [id number] Stent Viabil Biliary [id number] - [id number] Implanted:Qty : 1 on 07/17/2021 by Guillermo Jones DO at [facility]OS[facility] [employer] [id number] 03/04/2024 [id number] / [id number] / [id number] Port Implant W/8f Poly Cath - [id number] Implanted:Qty : 1 on 09/13/2023 by Gary Rodriguez DO at OR [facility] Right: Chest CR BARD : PERIPHERAL VASCULAR [id number] 04/24/2025 [id number] / / [id number] documented as of this encounter Visit Diagnoses [...] on File Type Date Recorded Patient Senior Compliance Officer Expl anation Advance Directives and Living [...] Agen t (per Health Care Power of Cream Dipper document) [email or web address] Temo Cramer Sibling First Alternate Health Care Agent (per Health Care Power of Cream Dipper document) [email or web address] Care Teams Junior Account Manager Relationship Specialty Start Date End Date Sergio Barriga MD [address] [place] [address] PCP - General Family Medicine 08/07/19 documented as of this encounter
--- OUTSIDE RECORDS SUMMARY | 2024-04-19 00:05 | External Medical Summary | Summary of Care ---
Author Name Unknown Organization [facility] Address [address] [place] [address] Phone [phone] Care Team Providers Care Char Puller Name Role Phone Sergio Barriga MD Primary Care Provider + Reason for Visit * Reason Comments Chemotherapy Oxaliplatin, irinote can, leucovorin, 5fu pump. 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) Procedures IA LEUCOVORIN CALCIUM INJECTION IA FLUOROURACIL INJECTION IA IRINOTECAN INJECTION IA OXALIPLATIN IA FOSAPREPITANT INJECTION BEVACIZUMAB-BVZR, BIOSIMILAR, 10 MG (ZIRABEV), IV IA INJECTION, UDENYCA 0.5 MG Dakota Armando MD [address] [place], [place] [address] Anc Hem/Onc [facility] [place] DEPT CLOSED - 10/08/23 200 [facility] [place] [address] Referral ID Status Reason Start Date Expiration Date V isits Requested Visits Authorized [id number] Authorized 08/30/2023 11/24/2099 999 99 Encounter Details Date Type Department Care Team (Latest Contact Info) Description 12/24/2023 10:30 AM EST Hem/Onc Treatment Hematology/Oncolog y Treatment, [place] [address] [place] [phone] Re[place], Chair 11 Hem Onc Scenery [address] [place] [address] Encounter for antineoplastic chemotherapy*; 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); 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) Allergies Active Allergy Reactions Criticality Noted Date Comments Lisinopril Cough Low 08/07/2019 documented as of this encounter (statuses as of 01/15/2024) Medications Medication Sig Dispensed Refills Start Date End Date Status Boost 100 Calorie Smart Oral Liquid Take by mouth. 0 Active Multi Vitamin Daily Oral Tablet Take by mouth. 0 Active Aspirin 81 MG Oral Tablet Delayed Release Take 1 Tablet by mouth in the morning. 0 Active Pancrelipase (Jws-Oxnp-Uvke) 38757-[address] UNIT Oral Capsule Delayed Release Particles (Creon 68556) 2 cap with meals, 1 with larger [...] as of this encounter (statuses as of 01/15/2024) Active Problems Problem Noted Date Diagnosed Date [...] WNL Factor V+heteroqygous. 04/10 colon-Dr Case [facility] 2 polyps 1 tubular adenoma. Kevin 5y 2013 sleep study [facility] WNL [address] Elena [facility] Essential hypertension with goal blood pressure [...] as of this encounter (statuses as of 01/15/2024) Resolved Problems Problem Noted Date Diagnosed Date [...] WNL, antiphos lipids WNL Factor V+heteroqygous. FM RO-BVEB-MQRNG DIS NEC documented as of this encounter (statuses as of 01/15/2024) Immunizations Name Administration Dates Next Due COVID-19 mRNA, LNP-s, No Pre serve, 2-Dose Series (Netvibes) 01/13/2022,07/21/2021,02/01/2021,01/04 COVID-19, MRNA-LNP, 23-24, P F, 30 MCG/0.3 mL, 12 YRS AND ABOVE, IM ([employer] [facility]) 09/12/2023 Covid-19, Mrna, Lnp-s, Pf, B ivalent, 30 Mcg, IM, 12 yrs and above (Netvibes) 08/16/2022 HEP A - Hepatitis A (Adult [...] EST Laboratory Laboratory [facility] [place] [address] [place] [phone] [place], Lab [facility] 200 [facility] [place] [address] 01/21/2024 9:15 AM EST Hem/Onc Treatment Hematology/Oncology Treatment, [place] [address] [place] [phone] [place], Chair 8 Hem On[address] [place] [address] 01/27/2024 11:00 AM EST Imaging Radiology [facility] 1st [facility], [place] [address] [facility] [place] [id number] 02/04/2024 8:45 AM EDT Office Visit Hematology/Oncology [facility] [place] [address] [phone] Dakota Armando MD 200 [facility] [place] [address] 07/20/2024 10:15 AM EDT Office Visit Dermatology [facility] [place] [address] [place] [address] Cal Jernigan MD 200 [facility] [place] [address] 07/21/2024 1:45 PM EDT Office Visit Hematology/Oncology [facility] [place] [address] [phone] Dakota Armando MD [address] [facility] [place] [address] 07/24/2024 11:40 AM EDT Office Visit Family Practice [facility] [address] [place] [address] Sergio Barriga MD [address] [place] [address] Scheduled Procedures Name Priority Associated Diagnoses Date/Ti [...] this encounter Medical Devices Implanted Type Area Electro Mechanical Technician Device Identifier Shelf Expiration Date Model / Serial / Lot Duraclip 16mm Xlg [facility] [id number] Implanted:Qty : 1 on 07/17/2021 by Guillermo Jones DO at ENDOSCOPY [facility] [employer] [id number] 01/10/2024 [id number] / / [id number] Stent Viabil Biliary 45scg4iv - [id number] Implanted:Qty : 1 on 07/17/2021 by Guillermo Jones DO at ENDOSCOPY [facility] [employer] [id number] 03/04/2024 [id number] / [id number] / [id number] Port Implant W/8f Poly Cath - [id number] Implanted:Qty : 1 on 09/13/2023 by Gary Rodriguez DO at OR [facility] Right: Chest CR BARD : PERIPHERAL VASCULAR [id number] 04/24/2025 [id number] / / [id number] documented as of this encounter Visit Diagnoses [...] Documents on File Type Date Recorded Patient Carpet Or Rug Layer Helper Expl anation Advance Directives and Living [...] Agen t (per Health Care Power of Human Development Professor document) [email or web address] Temo Cramer Sibling First Alternate Health Care Agent (per Health Care Power of Human Development Professor document) Care Teams Char Puller Relationship Specialty Start Date End Date Sergio Barriga MD [address] [place] [address] PCP - General Family Medicine 08/07/19 documented as of this encounter
--- OUTSIDE RECORDS SUMMARY | 2024-04-19 00:05 | External Medical Summary | Summary of Care ---
Author Name Unknown Organization [facility] Address [address] [place] [address] Phone [phone] Care Team Providers Care Entrepreneurial Finance Professor Name Role Phone Sergio Barriga MD Primary [...] 0.5 MG Dakota Armando MD [address] [place], [place] [address] Anc Hem/Onc [facility] [place] DEPT CLOSED - 10/08/23 200 [facility] [place] [address] Referral ID Status Reason Start Date Expiration Date V isits Requested Visits Authorized [id number] Authorized 08/30/2023 11/24/2099 999 99 Encounter Details Date Type Department Care Team (Latest Contact Info) Description 12/24/2023 10:30 AM EST Hem/Onc Treatment Hematology/Oncolog y Treatment, [place] [address] [place] [phone] Re[place], Chair 11 Hem Onc Scenery [address] [place] [address] Encounter for antineoplastic chemotherapy*; Metastasis to liver [...] mouth in the morning. 0 Active Pancrelipase (Kee-Tdhj-Hsfu) 92173-75000 UNIT Oral Capsule Delayed Release Particles (Creon 33994) 2 cap with meals, 1 with larger [...] -19) 10/16/2022 Coronary artery disease invo lving [place] coronary artery of [place] heart without angina pectoris 08/20/2022 Overview: Severe [...] lipids WNL Factor V+heteroqygous. 04/10 colon-Dr Case [facility] 2 polyps 1 tubular adenoma. Kevin 6y 2013 sleep study [facility] WNL [address] Elena [facility] Essential hypertension with goal blood [...] WNL, antiphos lipids WNL Factor V+heteroqygous. FM CY-FOJE-TXDLE DIS NEC documented as of this encounter (statuses as of 01/15/2024) Immunizations Name Administration Dates Next Due COVID-19 mRNA, LNP-s, No Pre serve, 2-Dose Series (Ziffi) 01/13/2022,07/21/2021,02/01/2021,01/04 COVID-19, MRNA-LNP, 23-24, P F, 30 MCG/0.3 mL, 12 YRS AND ABOVE, IM ([facility]) 09/12/2023 Covid-19, Mrna, Lnp-s, Pf, B ivalent, 30 Mcg, IM, 12 yrs and above (Ziffi) 08/16/2022 HEP A - Hepatitis A (Adult [...] Description 01/20/2024 9:10 AM EST Laboratory Laboratory [facility] [place] [address] [place] [phone] [place], Lab [facility] 200 [facility] [place] [address] 01/21/2024 9:15 AM EST Hem/Onc Treatment Hematology/Oncology Treatment, [place] [address] [place] [phone] [place], Chair 8 Hem Onc [address] [place] [address] 01/27/2024 11:00 AM EST Imaging Radiology [facility] 1st [facility], [place] [address] [facility] [place] [id number] 02/04/2024 8:45 AM EDT Office Visit Hematology/Oncology [facility] [place] [address] [phone] Dakota Armando MD 200 [facility] [place] [address] 07/20/2024 10:15 AM EDT Office Visit Dermatology [facility] [place] [address] [place] [address] Cal Jernigan MD 200 [facility] [place] [address] 07/21/2024 1:45 PM EDT Office Visit Hematology/Oncology [facility] [place] [address] [phone] Dakota Armando MD [address] [facility] [place] [address] 07/24/2024 11:40 AM EDT Office Visit Family Practice [facility] [address] [place] [address] Sergio Barriga MD [address] [place] [address] Scheduled Procedures Name Priority Associated Diagnoses Date/Ti [...] encounter Medical Devices Implanted Type Area Manager Semiconductor Device Identifier Shelf Expiration Date Model / Serial / Lot Duraclip 16mm Xlg [facility] [id number] Implanted:Qty : 1 on 07/17/2021 by Guillermo Jones DO at ENDOSCOPY [facility] [employer] [id number] 01/10/2024 [id number] / / [id number] Stent Viabil Biliary 97utx8if - [id number] Implanted:Qty : 1 on 07/17/2021 by Guillermo Jones DO at ENDOSCOPY [facility] [employer] [id number] 03/04/2024 [id number] / [id number] / [id number] Port Implant W/8f Poly Cath - [id number] Implanted:Qty : 1 on 09/13/2023 by Gary Rodriguez DO at OR [facility] Right: Chest CR BARD : PERIPHERAL VASCULAR [id number] 04/24/2025 [id number] / / [id number] documented as of this encounter Visit Diagnoses [...] on File Type Date Recorded Patient Medical Insurance Clerk Expl anation Advance Directives and Living [...] Agen t (per Health Care Power of Foreign Language Interpreter document) [email or web address] [email or web address] [email or web address] Sibling First Alternate Health Care Agent (per Health Care Power of Foreign Language Interpreter document) Care Teams Entrepreneurial Finance Professor Relationship Specialty Start Date End Date Sergio Barriga MD [address] [place] [address] PCP - General Family Medicine 08/07/19 documented as of this encounter
--- OUTSIDE RECORDS SUMMARY | 2024-04-19 00:05 | External Medical Summary | Summary of Care ---
Author Name Unknown Organization [facility] Address [address] [place] [address] Phone [phone] Care Team Providers Care Hot Die Press Operator Name Role Phone Sergio Barriga MD Primary Care Provider + Reason for Visit * Reason Comments Chemotherapy Oxaliplatin, irinote can, leucovorin, 5fu pump. 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) Procedures [place] LEUCOVORIN CALCIUM INJECTION NH FLUOROURACIL INJECTION NH IRINOTECAN INJECTION NH OXALIPLATIN NH FOSAPREPITANT INJECTION BEVACIZUMAB-BVZR, BIOSIMILAR, 10 MG (ZIRABEV), IV [place] INJECTION, UDENYCA 0.5 MG Dakota Armando MD [address] [place], [place] [address] Anc Hem/Onc [facility] Re[place] DEPT CLOSED - 10/08/23 200 [facility] [place] [address] Referral ID Status Reason Start Date Expiration Date V isits Requested Visits Authorized [id number] Authorized 08/30/2023 11/24/2099 999 99 Encounter Details Date Type Department Care Team (Latest Contact Info) Description 12/24/2023 10:30 AM EST Hem/Onc Treatment Hematology/Oncolog y Treatment, [place] [address] [place] [phone] Rehana, Chair 11 Hem Onc Scenery [address] [place] [address] Encounter for antineoplastic chemotherapy*; Metastasis to liver [...] mouth in the morning. 0 Active Pancrelipase (Yiz-Sewf-Mcpo) 58791-53683 UNIT Oral Capsule Delayed Release Particles (Creon 85572) 2 cap with meals, 1 with larger [...] 04/10 colon-Dr Case [facility] 2 polyps 1 tubular adenoma. Kevin 5y 2013 sleep study [facility] WNL [address] Elena [facility] [...] WNL, antiphos lipids WNL Factor V+heteroqygous. FM CQ-NYQI-JSHGS DIS NEC documented as of this encounter (statuses as of 01/15/2024) Immunizations Name Administration Dates Next Due COVID-19 mRNA, LNP-s, No Pre serve, 2-Dose Series (FlexyMind) 01/13/2022,07/21/2021,02/01/2021,01/04 COVID-19, MRNA-LNP, 23-24, P F, 30 MCG/0.3 mL, 12 YRS AND ABOVE, IM ([facility]) 09/12/2023 Covid-19, Mrna, Lnp-s, Pf, B ivalent, 30 Mcg, IM, 12 yrs and above (FlexyMind) 08/16/2022 HEP A - Hepatitis A (Adult [...] today is fine. Reviewed with Dr Armando- intza to proceed with treatment. documented in this encounter Plan of Treatment Upcoming Encounters Date Type Department Care Team (Late st Contact Info) Description 01/20/2024 9:10 AM EST Laboratory Laboratory [facility] [place] [address] [place] [phone] [place], Lab [facility] 200 [facility] [place] [address] 01/21/2024 9:15 AM EST Hem/Onc Treatment Hematology/Oncology Treatment, [place] [address] [place] [phone] Re[place], Chair 8 Hem Onc [address] [place] [address] 01/27/2024 11:00 AM EST Imaging Radiology [facility] 1st [facility], [place] [address] [facility] [place] [id number] 02/04/2024 8:45 AM EDT Office Visit Hematology/Oncology [facility] [place] [address] [phone] Dakota Armando MD 200 [facility] [place] [address] 07/20/2024 10:15 AM EDT Office Visit Dermatology [facility] [place] [address] [place] [address] Cal Jernigan MD 200 [facility] [place] [address] 07/21/2024 1:45 PM EDT Office Visit Hematology/Oncology [facility] [place] [address] [phone] Dakota Armando MD [address] [place] [facility] [address] 07/24/2024 11:40 AM EDT Office Visit Family Practice [facility] [address] [place] [address] Sergio Barriga MD [address] [place] [address] Scheduled Procedures Name Priority Associated Diagnoses Date/Ti [...] encounter Medical Devices Implanted Type Area Sales Project Administrator Device Identifier Shelf Expiration Date Model / Serial / Lot Duraclip 16mm Xlg [facility] - [id number] Implanted:Qty : 1 on 07/17/2021 by Guillermo Jones DO [place] [facility] [employer] [id number] 01/10/2024 [id number] / / [id number] Stent Viabil Biliary 07saw9ht - [id number] Implanted:Qty : 1 on 07/17/2021 by Guillermo Jones DO at [place] [facility] [employer] [id number] 03/04/2024 [id number] / [id number] / [id number] Port Implant W/8f Poly Cath - [id number] Implanted:Qty : 1 on 09/13/2023 by Gary Rodriguez DO at OR [facility] Right: Chest CR BARD : PERIPHERAL VASCULAR [id number] 04/24/2025 [id number] / / [id number] documented as of this encounter Visit Diagnoses [...] Documents on File Type Date Recorded Patient Criminal Legal Assistant Expl anation Advance Directives and Living Will 10/23/2022 4:43 PM Virginie Rollins .PDF Latest Code Status on File Code Status Date Activated Date Inactivated Comments Full Code 07/16/2021 10:04 AM 07/18/2021 6:28 PM This order reflects the patients wishes and were consensually agreed upon. Healthcare Agents on File Name Relationship Healthcare Agent Relationship Communication Vigrinie Cramer Spouse Health Care Agen t (per Health Care Power of Roller Billet Mill document) [email or web address] Temo Cramer Sibling First Alternate Health Care Agent (per Health Care Power of Roller Billet Mill document) [email or web address] Care Teams Hot Die Press Operator Relationship Specialty Start Date End Date Sergio Barriga MD [address] [place] [address] PCP - General Family Medicine 08/07/19 documented as of this encounter
--- OUTSIDE RECORDS SUMMARY | 2024-04-19 00:05 | External Medical Summary | Summary of Care ---
Author Name Unknown Organization [facility] Address [address] [place] [address] Phone [phone] Care Team Providers Care Quantitative Developer Name Role Phone Sergio Barriga MD Primary Care Provider + Reason for Visit * Reason Comments Chemotherapy Oxaliplatin, irinote can, leucovorin, 5fu pump. 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) Procedures [place] LEUCOVORIN CALCIUM INJECTION SC FLUOROURACIL INJECTION SC IRINOTECAN INJECTION SC OXALIPLATIN SC FOSAPREPITANT INJECTION BEVACIZUMAB-BVZR, BIOSIMILAR, 10 MG (ZIRABEV), IV SC INJECTION, UDENYCA 0.5 MG Dakota Armando MD [address] [place], [place] [address] Anc Hem/Onc [facility] [place] DEPT CLOSED - 10/08/23 200 [facility] [place] [address] Referral ID Status Reason Start Date Expiration Date V isits Requested Visits Authorized [id number] Authorized 08/30/2023 11/24/2099 999 99 Encounter Details Date Type Department Care Team (Latest Contact Info) Description 12/24/2023 10:30 AM EST Hem/Onc Treatment Hematology/Oncolog y Treatment, [place] [address] [place] [phone] Re[place], Chair 11 Hem Onc Scenery [address] [place] [address] Encounter for antineoplastic chemotherapy*; Metastasis to liver [...] mouth in the morning. 0 Active Pancrelipase (Qms-Rbve-Fced) 82974-[address] UNIT Oral Capsule Delayed Release Particles (Creon 58670) 2 cap with meals, 1 with larger [...] -19) 10/16/2022 Coronary artery disease invo lving [place] coronary artery of [place] heart without angina pectoris 08/20/2022 Overview: Severe [...] lipids WNL Factor V+heteroqygous. 04/10 colon-Dr Case [facility] 2 polyps 1 tubular adenoma. Kevin 6y 2013 sleep study [facility] WNL [address] Elena [facility] Essential hypertension with goal blood [...] WNL, antiphos lipids WNL Factor V+heteroqygous. FM AY-VNHH-ZBMFC DIS NEC documented as of this encounter (statuses as of 01/15/2024) Immunizations Name Administration Dates Next Due COVID-19 mRNA, LNP-s, No Pre serve, 2-Dose Series (Ahandyhand) 01/13/2022,07/21/2021,02/01/2021,01/04 COVID-19, MRNA-LNP, 23-24, P F, 30 MCG/0.3 mL, 12 YRS AND ABOVE, IM ([facility]) 09/12/2023 Covid-19, Mrna, Lnp-s, Pf, B ivalent, 30 Mcg, IM, 12 yrs and above (Ahandyhand) 08/16/2022 HEP A - Hepatitis A (Adult [...] Description 01/20/2024 9:10 AM EST Laboratory Laboratory [facility] [place] [address] [place] [phone] [place], Lab [facility] 200 [facility] [place] [address] 01/21/2024 9:15 AM EST Hem/Onc Treatment Hematology/Oncology Treatment, [place] [address] [place] [phone] [place], Chair 8 Hem Onc [address] [place] [address] 01/27/2024 11:00 AM EST Imaging [facility] 1st [facility], [place] [address] [facility] [place] [id number] 02/04/2024 8:45 AM EDT Office Visit Hematology/Oncology [facility] [place] [address] [phone] Dakota Armando MD 200 [facility] [place] [address] 07/20/2024 10:15 AM EDT Office Visit Dermatology [facility] [place] [address] [place] [address] Cal Jernigan MD 200 [facility] [place] [address] 07/21/2024 1:45 PM EDT Office Visit Hematology/Oncology [facility] [place] [address] [phone] Dakota Armando MD [address] [place] [facility] [address] 07/24/2024 11:40 AM EDT Office Visit Family Practice [facility] [address] [place] [address] Sergio Barriga MD [address] [place] [address] Scheduled Procedures Name Priority Associated Diagnoses Date/Ti [...] this encounter Medical Devices Implanted Type Area Fee Clerk Device Identifier Shelf Expiration Date Model / Serial / Lot Duraclip 16mm Xlg [facility] - [id number] Implanted:Qty : 1 on 07/17/2021 by Guillermo Jones DO at ENDOSCOPY [facility] [employer] [id number] 01/10/2024 [id number] / / [id number] Stent Viabil Biliary 03edp0en - [id number] Implanted:Qty : 1 on 07/17/2021 by Guillermo Jones DO at ENDOSCOPY [facility] [employer] [id number] 03/04/2024 [id number] / [id number] / [id number] Port Implant W/8f Poly Cath - [id number] Implanted:Qty : 1 on 09/13/2023 by Gary Rodriguez DO at OR [facility] Right: Chest CR BARD : PERIPHERAL VASCULAR [id number] 04/24/2025 [id number] / / [id number] documented as of this encounter Visit Diagnoses [...] Documents on File Type Date Recorded Patient Concept Artist Expl anation Advance Directives and Living Will [...] Agen t (per Health Care Power of Coal Digger document) [email or web address] Temo Cramer Sibling First Alternate Health Care Agent (per Health Care Power of Coal Digger document) Care Teams Quantitative Developer Relationship Specialty Start Date End Date Sergio Barriga MD [address] [place] [address] PCP - General Family Medicine 08/07/19 documented as of this encounter
--- OUTSIDE RECORDS SUMMARY | 2024-04-19 00:05 | External Medical Summary | Summary of Care ---
Author Name Unknown Organization [facility] Address [address] [place] [address] Phone [phone] Care Team Providers Care Locator Specialist Name Role Phone Sergio Barriga MD Primary Care Provider + Reason for Visit * Reason Comments Medication Administration Udenyca * Episode Based Medications (Routine) - Authorized Specialty Diagnoses / Procedures Referred By Linda hu Referred To Contact Diagnoses Encounter for antineoplastic chemotherapy 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) 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) Procedures AK LEUCOVORIN CALCIUM INJECTION AK FLUOROURACIL INJECTION AK IRINOTECAN INJECTION AK OXALIPLATIN AK FOSAPREPITANT INJECTION BEVACIZUMAB-BVZR, BIOSIMILAR, 10 MG (ZIRABEV), IV AK INJECTION, UDENYCA 0.5 MG Dakota Armando MD [address] [place], [place] [address] Anc Hem/Onc [facility] DEPT CLOSED - 10/08/23 [address] [place] [address] Referral ID Status Reason Start Date Expiration Date V isits Requested Visits Authorized [id number] Authorized 08/30/2023 11/24/2099 999 99 Encounter Details Date Type Department Care Team (Latest Contact Info) Description 12/13/2023 1:00 PM EST Immunization/ Injection Hematology/Oncology Treatment, [place] [address] [place] [address] Nurse, [...] mouth in the morning. 0 Active Pancrelipase (Cyl-Wacm-Mmfs) 41229-86979 UNIT Oral Capsule Delayed Release Particles (Creon 52826) 2 cap with meals, 1 with larger [...] -19) 10/16/2022 Coronary artery disease invo lving [place] coronary artery of [place] heart without angina pectoris 08/20/2022 Overview: Severe [...] lipids WNL Factor V+heteroqygous. 04/10 colon-Dr Case [facility] 2 polyps 1 tubular adenoma. Kevin 5y 2013 sleep study [facility] WNL [address] Elena [facility] Essential hypertension with goal blood [...] WNL, antiphos lipids WNL Factor V+heteroqygous. FM XP-ZIHT-RPFCJ DIS NEC documented as of this encounter (statuses as of 01/15/2024) Immunizations Name Administration Dates Next Due COVID-19 mRNA, LNP-s, No Pre serve, 2-Dose Series ([employer]) 01/13/2022,07/21/2021,02/01/2021,12/26 COVID-19, MRNA-LNP, 23-24, P F, 30 MCG/0.3 mL, 12 YRS AND ABOVE, IM (Taptu-TicketGoose.comirCommunication Specialist Limited) 09/12/2023 Covid-19, Mrna, Lnp-s, Pf, B ivalent, 30 Mcg, IM, 12 yrs and above ([employer]) 08/16/2022 HEP A - Hepatitis A (Adult [...] as of this encounter Nursing Notes * Juan Smith, RN - 12/13/2023 1:28 PM EST Chair 9. Pt received Udenyca injection. Pt denies any issues at this time. Injection given in RACHELL per patient request. Pt tolerated well. Pt ambulated from treatment center in stable condition. documented in this encounter Plan of Treatment Upcoming Encounters Date Type Department Care Team (Late st Contact Info) Description 01/20/2024 9:10 AM EST Laboratory Laboratory [facility] [address] [place], [place] [phone] [place], Lab Scenery [address] [facility] [place], [place] [address] 01/21/2024 9:15 AM EST Hem/Onc Treatment Hematology/Oncology Treatment, [place] [address] [place], [place] [phone] [place], Chair 8 Hem Onc [facility] [address] [place], [place] [address] 01/27/2024 11:00 AM EST Imaging Radiology [facility] 1st [facility] [address] [facility] [place] [address] 02/04/2024 8:45 AM EDT Office Visit Hematology/Oncology [facility] [place] [address] [place] [phone] Dakota Armando MD [address] [place], [place] [address] 07/20/2024 10:15 AM EDT Office Visit Dermatology [facility] [address] [place], [place] [address] Cal Jernigan MD [address] [place], [place] [address] 07/21/2024 1:45 PM EDT Office Visit Hematology/Oncology [facility] [address] [place], [place] [phone] Dakota Armando MD [address] [place], [place] [address] 07/24/2024 11:40 AM EDT Office Visit Family Practice [facility] [address] [facility] [place] [address] Sergio Barriga MD 132 [facility] [place] [address] Scheduled Procedures Name Priority Associated Diagnoses Date/Ti [...] this encounter Medical Devices Implanted Type Area Hand Loom Weaver Device Identifier Shelf Expiration Date Model / Serial / Lot Duraclip 16mm Xlg Repostn - [id number] Implanted:Qty : 1 on 07/17/2021 by Guillermo Jones DO at ENDOSCOPY [facility] Diurnal REYNALDO [id number] 01/10/2024 [id number] / / [id number] Stent Viabil Biliary [id number] - [id number] Implanted:Qty : 1 on 07/17/2021 by Guillermo Jones DO at ENDOSCOPY [facility] [employer] REYNALDO [id number] 03/04/2024 [id number] / [id number] / [id number] Port Implant W/8f Poly Cath - [id number] Implanted:Qty : 1 on 09/13/2023 by Gary Rodriguez DO at OR [facility] Right: Chest CR BARD : PERIPHERAL VASCULAR [id number] 04/24/2025 [id number] / / [id number] documented as of this encounter Visit Diagnoses [...] 6 mg 6 mg, Subcutaneous, ONCE, On Sat12/13/23 at 1345, For 1 dose Given 12/13/2023 1:12 PM EST 6 mg Arm R ight Upper documented in this encounter Advance Directives Documents on File Type Date Recorded Patient Head Butler Expl anation Advance Directives and Living Will [...] Agen t (per Health Care Power of Biscuitware Brusher document) [email or web address] [email or web address] Cramer Sibling First Alternate Health Care Agent (per Health Care Power of Biscuitware Brusher document) [email or web address] Care Teams Locator Specialist Relationship Specialty Start Date End Date Sergio Barriga MD [address] [place] [address] PCP - General Family Medicine 08/07/19 documented as of this encounter
--- OUTSIDE RECORDS SUMMARY | 2024-04-19 00:05 | External Medical Summary | Summary of Care ---
Author Name Unknown Organization [facility] Address [address] [place] [address] Phone [phone] Care Team Providers Care Clay Caster Name Role Phone Sergio Barriga MD Primary Care Provider + Reason for Visit * Reason Comments Chemotherapy Oxaliplatin, irinote can, leucovorin, 5fu pump. 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) Procedures RI LEUCOVORIN CALCIUM INJECTION RI FLUOROURACIL INJECTION RI IRINOTECAN INJECTION RI OXALIPLATIN RI FOSAPREPITANT INJECTION BEVACIZUMAB-BVZR, BIOSIMILAR, 10 MG (ZIRABEV), IV RI INJECTION, UDENYCA 0.5 MG Dakota Armando MD [address] [place], [place] [address] Anc Hem/Onc [facility] [place] DEPT CLOSED - 10/08/23 200 [facility] [place] [address] Referral ID Status Reason Start Date Expiration Date V isits Requested Visits Authorized [id number] Authorized 08/30/2023 11/24/2099 999 99 Encounter Details Date Type Department Care Team (Latest Contact Info) Description 12/24/2023 10:30 AM EST Hem/Onc Treatment Hematology/Oncolog y Treatment, [place] [address] [place] [phone] [place], Chair 11 Hem Onc Sc[address] [place] [address] Encounter for antineoplastic chemotherapy*; Metastasis to liver [...] mouth in the morning. 0 Active Pancrelipase (Dwr-Qbze-Wkpj) 26933-[address] UNIT Oral Capsule Delayed Release Particles (Creon 55919) 2 cap with meals, 1 with larger [...] -19) 10/16/2022 Coronary artery disease invo lving [place] coronary artery of [place] heart without angina pectoris 08/20/2022 Overview: Severe [...] Factor V+heteroqygous. 04/10 colon-Dr Case [facility] 2 polyps 1 tubular adenoma. Kevin 6y 2013 sleep study [facility] WNL [address] [facility] [...] WNL, antiphos lipids WNL Factor V+heteroqygous. FM FW-COZN-KALEF DIS NEC documented as of this encounter (statuses as of 01/15/2024) Immunizations Name Administration Dates Next Due COVID-19 mRNA, LNP-s, No Pre serve, 2-Dose Series ([employer]) 01/13/2022,07/21/2021,02/01/2021,01/04 COVID-19, MRNA-LNP, 23-24, P F, 30 MCG/0.3 mL, 12 YRS AND ABOVE, IM ([facility]) 09/12/2023 Covid-19, Mrna, Lnp-s, Pf, B ivalent, 30 Mcg, IM, 12 yrs and above ([employer]) 08/16/2022 HEP A - Hepatitis A (Adult [...] Laboratory [facility] [place] [address] [place] [phone] [place], Lab [facility] 200 [facility] [place] [address] 01/21/2024 9:15 AM EST Hem/Onc Treatment Hematology/Oncology Treatment, [place] [address] [place] [phone] [place], Chair 8 Hem Onc [address] [place] [address] 01/27/2024 11:00 AM EST Imaging Radiology [facility] 1st [facility] [place] [address] [facility] [place] [id number] 02/04/2024 8:45 AM EDT Office Visit Hematology/Oncology [facility] [place] [address] [place] [address] [phone] Dakota Armando MD 200 [facility] [address] 07/20/2024 10:15 AM EDT Office Visit Dermatology [facility] [place] [address] [place] [address] Cal Jernigan MD 200 [facility] [place] [address] 07/21/2024 1:45 PM EDT Office Visit Hematology/Oncology [facility] [place] [address] [phone] Dakota Armando MD [address] [place] [address] 07/24/2024 11:40 AM EDT Office Visit Family Practice [facility] [address] [place] [address] Sergio Barriga MD [address] [place] [address] Scheduled Procedures Name Priority Associated Diagnoses Date/Ti [...] this encounter Medical Devices Implanted Type Area Loom Setter Device Identifier Shelf Expiration Date Model / Serial / Lot Duraclip 16mm Xlg [facility] - [id number] Implanted:Qty : 1 on 07/17/2021 by Guillermo Jones DO at [facility] [facility] [employer] [id number] 01/10/2024 [id number] / / [id number] Stent Viabil Biliary [id number] - [id number] Implanted:Qty : 1 on 07/17/2021 by Guillermo Jones DO at [facility] [employer] [id number] 03/04/2024 [id number] / [id number] / [id number] Port Implant W/8f Poly Cath - [id number] Implanted:Qty : 1 on 09/13/2023 by Gary Rodriguez DO [facility] Right: Chest CR BARD : PERIPHERAL VASCULAR [id number] 04/24/2025 [id number] / / [id number] documented as of this encounter Visit Diagnoses [...] Documents on File Type Date Recorded Patient Fur Feeder Expl anation Advance Directives and Living [...] Agen t (per Health Care Power of Semiconductor Technician document) [email or web address] Temo Cramer Sibling First Alternate Health Care Agent (per Health Care Power of Semiconductor Technician document) [email or web address] Care Teams Clay Caster Relationship Specialty Start Date End Date Sergio Barriga MD [address] [place] [address] PCP - General Family Medicine 08/07/19 documented as of this encounter
--- OUTSIDE RECORDS SUMMARY | 2024-04-19 00:05 | External Medical Summary | Summary of Care ---
Author Name Unknown Organization [facility] Address [address] [place] [address] Phone [phone] Care Team Providers Care Iron Molder Helper Name Role Phone Sergio Barriga MD [...] 0.5 MG Dakota Armando MD [address] [place], [place] [address] Anc Hem/Onc [facility] [place] DEPT CLOSED - 10/08/23 200 [facility] [place] [address] Referral ID Status Reason Start Date Expiration Date V isits Requested Visits Authorized [id number] Authorized 08/30/2023 11/24/2099 999 99 Encounter Details Date Type Department Care Team (Latest Contact Info) Description 12/24/2023 10:30 AM EST Hem/Onc Treatment Hematology/Oncolog y Treatment, [place] [address] [place] [phone] [place], Chair 11 Hem Onc [address] [place] [address] Encounter for antineoplastic chemotherapy*; Metastasis to liver [...] mouth in the morning. 0 Active Pancrelipase (Ouk-Vhvf-Vhyf) 59986-[address] UNIT Oral Capsule Delayed Release Particles (Creon 24558) 2 cap with meals, 1 with larger [...] -19) 10/16/2022 Coronary artery disease invo lving [place] coronary artery of [place] heart without angina pectoris 08/20/2022 Overview: Severe [...] WNL, antiphos lipids WNL Factor V+heteroqygous. FM FX-JFED-OQWYO DIS NEC documented as of this encounter (statuses as of 01/15/2024) Immunizations Name Administration Dates Next Due COVID-19 mRNA, LNP-s, No Pre serve, 2-Dose Series (SinglePlatform) 01/13/2022,07/21/2021,02/01/2021,01/04 COVID-19, MRNA-LNP, 23-24, P F, 30 MCG/0.3 mL, 12 YRS AND ABOVE, IM ([facility]) 09/12/2023 Covid-19, Mrna, Lnp-s, Pf, B ivalent, 30 Mcg, IM, 12 yrs and above (SinglePlatform) 08/16/2022 HEP A - Hepatitis A (Adult [...] Description 01/20/2024 9:10 AM EST Laboratory Laboratory [facility] [place] [address] [place] [phone] [place], Lab [facility] 200 [facility] [place] [address] 01/21/2024 9:15 AM EST Hem/Onc Treatment Hematology/Oncology Treatment, [place] [address] [place] [phone] [place], Chair 8 Hem Onc [address] [place] [address] 01/27/2024 11:00 AM EST Imaging Radiology [facility] 1st [facility], [place] 132 [facility] [place] [id number] 02/04/2024 8:45 AM EDT Office Visit Hematology/Oncology [facility] [place] [address] [place] [phone] Dakota Armando MD 200 [facility] [place] [address] 07/20/2024 10:15 AM EDT Office Visit Dermatology [facility] [place] [address] [place] [address] Cal Jernigan MD 200 [facility] [place] [address] 07/21/2024 1:45 PM EDT Office Visit Hematology/Oncology [facility] [place] [address] [phone] Dakota Armando MD [address] [place] [facility] [address] 07/24/2024 11:40 AM EDT Office Visit Family Practice [facility] [address] [place] [address] Sergio Barriga MD [address] [place] [address] Scheduled Procedures Name Priority Associated Diagnoses Date/Ti [...] this encounter Medical Devices Implanted Type Area Cosmetic Manager Device Identifier Shelf Expiration Date Model / Serial / Lot Duraclip 16mm Xlg [facility] - [id number] Implanted:Qty : 1 on 07/17/2021 by Guillermo Jones DO at [place]OSCOPY [facility] [employer] [id number] 01/10/2024 [id number] / / [id number] Stent Viabil Biliary 59mls9uz - [id number] Implanted:Qty : 1 on 07/17/2021 by Guillermo Jones DO at ENDOSCOPY [facility] [employer] [id number] 03/04/2024 [id number] / [id number] / [id number] Port Implant W/8f Poly Cath - [id number] Implanted:Qty : 1 on 09/13/2023 by Gary Rodriguez DO at OR [facility] Right: Chest CR BARD : PERIPHERAL VASCULAR [id number] 04/24/2025 [id number] / / [id number] documented as of this encounter Visit Diagnoses [...] Documents on File Type Date Recorded Patient Day Light Relief Operator Expl anation Advance Directives and Living [...] Agen t (per Health Care Power of Commercial Finance Manager document) [email or web address] Temo Cramer Sibling First Alternate Health Care Agent (per Health Care Power of Commercial Finance Manager document) Care Teams Iron Molder Helper Relationship Specialty Start Date End Date Sergio Barriga MD [address] [place] [address] PCP - General Family Medicine 08/07/19 documented as of this encounter
--- OUTSIDE RECORDS SUMMARY | 2024-04-19 00:05 | External Medical Summary | Summary of Care ---
Author Name Unknown Organization [facility] Address [address] [place] [address] Phone [phone] Care Team Providers Care Handicapper Harness Racing Name Role Phone Sergio Barriga MD Primary [...] 0.5 MG Dakota Armando MD [address] [place], [place] [address] Anc Hem/Onc [facility] [place] DEPT CLOSED - 10/08/23 200 [facility] [place] [address] Referral ID Status Reason Start Date Expiration Date V isits Requested Visits Authorized [id number] Authorized 08/30/2023 11/24/2099 999 99 Encounter Details Date Type Department Care Team (Latest Contact Info) Description 12/24/2023 10:30 AM EST Hem/Onc Treatment Hematology/Oncolog y Treatment, [place] [address] [place] [phone] [place], Chair 11 Hem Onc [address] [place] [address] Encounter for antineoplastic chemotherapy*; Metastasis to liver [...] mouth in the morning. 0 Active Pancrelipase (Wkb-Eizl-Sjgq) 47[address]61[address] UNIT Oral Capsule Delayed Release Particles (Creon 74242) 2 cap with meals, 1 with larger [...] lipids WNL Factor V+heteroqygous. 04/10 colon-Dr Case [facility] 2 polyps 1 tubular adenoma. Kevin 6y 2013 sleep study [facility] WNL [address] Elena [facility] WNL, antiphos lipids WNL Factor V+heteroqygous. FM SR-ZLRP-VSPGX DIS NEC documented as of this encounter (statuses as of 01/15/2024) Immunizations Name Administration Dates Next Due COVID-19 mRNA, LNP-s, No Pre serve, 2-Dose Series (IRI) 01/13/2022,07/21/2021,02/01/2021,01/04 COVID-19, MRNA-LNP, 23-24, P F, 30 MCG/0.3 mL, 12 YRS AND ABOVE, IM ([facility]) 09/12/2023 Covid-19, Mrna, Lnp-s, Pf, B ivalent, 30 Mcg, IM, 12 yrs and above (IRI) 08/16/2022 HEP A - Hepatitis A (Adult [...] 01/20/2024 9:10 AM EST Laboratory Laboratory [facility] [place] [address] [place] [phone] [place], Lab [facility] 200 [facility] [place] [address] 01/21/2024 9:15 AM EST Hem/Onc Treatment Hematology/Oncology Treatment, [place] [address] [place] [phone] [place], Chair 8 Hem Onc [address] [place] [address] 01/27/2024 11:00 AM EST Imaging Radiology [facility] 1st [facility], [place] 132 [facility] [place] [id number] 02/04/2024 8:45 AM EDT Office Visit Hematology/Oncology [facility] [place] [address] [phone] Dakota Amrando MD 200 [facility] [place] [address] 07/20/2024 10:15 AM EDT Office Visit Dermatology [facility] [place] [address] [place] [address] Cal Jernigan MD 200 [facility] [place] [address] 07/21/2024 1:45 PM EDT Office Visit Hematology/Oncology [facility] [place] [address] [phone] Dakota Armando MD [address] [place] [facility] [address] 07/24/2024 11:40 AM EDT Office Visit Family Practice [facility] [address] [place] [address] Sergio Barriga MD [address] [place] [address] Scheduled Procedures Name Priority Associated Diagnoses Date/Ti [...] this encounter Medical Devices Implanted Type Area Dam Worker Device Identifier Shelf Expiration Date Model / Serial / Lot Duraclip 16mm Xlg [employer] - [id number] Implanted:Qty : 1 on 07/17/2021 by Guillermo Jones DO at ENDOSCOPY [facility] [employer] [id number] 01/10/2024 [id number] / / [id number] Stent Viabil Biliary [id number] - [id number] Implanted:Qty : 1 on 07/17/2021 by Guillermo Jones DO at ENDOSCOPY [facility] [employer] [id number] 03/04/2024 [id number] / [id number] / [id number] Port Implant W/8f Poly Cath - [id number] Implanted:Qty : 1 on 09/13/2023 by Gary Rodriguez DO at OR [facility] Right: Chest CR BARD : PERIPHERAL VASCULAR [id number] 04/24/2025 [id number] / / [id number] documented as of this encounter Visit Diagnoses [...] Documents on File Type Date Recorded Patient Arts Administrator Expl anation Advance Directives and Living [...] Agen t (per Health Care Power of Field Party Manager document) [email or web address] Sibling First Alternate Health Care Agent (per Health Care Power of Field Party Manager document) [email or web address] Care Teams Handicapper Harness Racing Relationship Specialty Start Date End Date Sergio Barriga MD [address] [place] [address] PCP - General Family Medicine 08/07/19 documented as of this encounter
--- OUTSIDE RECORDS SUMMARY | 2024-04-19 00:06 | External Medical Summary | Summary of Care ---
Author Name Unknown Organization [facility] Address [address] [place] [address] Phone [phone] Care Team Providers Care Leak Patcher Name Role Phone Sergio Barriga MD Primary [...] Armando MD [address] [employer], [place] [address] Anc Hem/Onc Sharif [facility] DEPT CLOSED - 10/08/23 [address] [place] [phone] Referral ID Status Reason Start Date Expiration Date V isits Requested Visits Authorized [id number] Authorized 08/30/2023 11/24/[phone] Encounter Details Date Type Department Care Team (Latest Contact Info) Description 11/08/2023 12:45 PM EST Immunization/ Injection Hematology/Oncology Treatment, [place] [address] [place] [phone] Nurse, Med 4 [address] [employer] [address] Encounter for antineoplastic chemotherapy*; 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); 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) Allergies Active Allergy Reactions Criticality Noted Date Comments Lisinopril Cough Low 08/07/2019 documented as of this encounter (statuses as of 01/13/2024) Medications Medication Sig Dispensed Refills Start Date End Date Status Boost 100 Calorie Smart Oral Liquid Take by mouth. 0 Active Multi Vitamin Daily Oral Tablet Take by mouth. 0 Active Aspirin 81 MG Oral Tablet Delayed Release Take 1 Tablet by mouth in the morning. 0 Active Pancrelipase (Pjw-Myuj-Cxrb) 38065-524[address] UNIT Oral Capsule Delayed Release Particles (Creon 53320) 2 cap with meals, 1 with larger [...] BEDTIME NEEDED FOR SLEEP 30 Tablet 0 10/21/2023 3 Discontinued Amoxicillin-Pot Clavulanate 875-125 MG Oral Tablet (Augmentin)Indic ations:Pneumonia of right lower lobe due to infectious organism Take 1 Tablet by mouth in the morning and 1 Tablet before bedtime. Do all this for 7 days. 14 Tablet 0 11/05/2023 3 tiZANidine HCl 2 MG Oral Tablet (Zanaflex)Indica tions:Muscle strain Take 1 Tablet by mouth every 8 hours as needed for Muscle spasms for up to 10 days. 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 04/10 colon-Dr Rafita [facility] 2 polyps 1 tubular adenoma. Kevin 6y 2013 sleep study [facility] WNL [address] Elena [facility] Essential hypertension with goal blood [...] as of this encounter (statuses as of 01/13/2024) Resolved Problems Problem Noted Date Diagnosed Date [...] WNL, antiphos lipids WNL Factor V+heteroqygous. FM EM-ITKL-LWEBN DIS NEC documented as of this encounter (statuses as of 01/13/2024) Immunizations Name Administration Dates Next Due COVID-19 mRNA, LNP-s, No Pre serve, 2-Dose Series (Baileyu) 01/13/2022,07/21/2021,02/01/2021,01/04 COVID-19, MRNA-LNP, 23-24, P F, 30 MCG/0.3 mL, 12 YRS AND ABOVE, IM ([facility]) 09/12/2023 Covid-19, Mrna, Lnp-s, Pf, B ivalent, 30 Mcg, IM, 12 yrs and above (Baileyu) 08/16/2022 HEP A - Hepatitis A (Adult [...] as of this encounter Nursing Notes * Deborah Harrington RN - 11/08/2023 1:13 PM EST Chair 7 Pt here for Udenyca injection. States he feels "terrible". C/o ongoing rib pain, unchanged since day of treatment when he was seen by provider. Also c/o feeling weak and tired. Denies N/V/D. Pt states he is taking claritin. Udenyca injection given. Pt rusty well. Discharged in stable condition. documented in this encounter Plan of Treatment Upcoming Encounters Date Type Department Care Team (Late st Contact Info) Description 01/20/2024 9:10 AM EST Laboratory Laboratory [facility] [place] [address] [facility] [place] [phone] Rehana, Lab [address] [facility] [place] [address] 01/21/2024 9:15 AM EST Hem/Onc Treatment Hematology/Oncology Treatment, [place] [address] [facility] [place] [phone] Rehana, Chair 8 Hem Onc [address] [place] [address] 01/27/2024 11:00 AM EST Imaging Radiology [address], [place] [address] [place] [address] 02/04/2024 8:45 AM EDT Office Visit Hematology/Oncology [facility] [place] [address] [place] [address] [phone] [place] Armando MD [address] [facility] [place] [address] 07/20/2024 10:15 AM EDT Office Visit Dermatology [facility] [place] [address] [place] [address] Cal Jernigan MD [address] [facility] [place] [address] 07/21/2024 1:45 PM EDT Office Visit Hematology/Oncology [facility] [place] 200 [facility] [address] [place] [phone] [place] Armando MD [address] [facility] [place] [address] 07/24/2024 11:40 AM EDT Office Visit Family [facility] [address] [place] [address] Sergio Barriga MD [address] [place] [address] Scheduled Procedures Name Priority Associated Diagnoses Date/Ti [...] this encounter Medical Devices Implanted Type Area Medical Secretary Teacher Device Identifier Shelf Expiration Date Model / Serial / Lot Duraclip 16mm Xlg Repostn - [id number] Implanted:Qty : 1 on 07/17/2021 by Guillermo Jones DO at ENDOSCOPY [facility] [employer] [id number] 01/10/2024 [id number] / / [id number] Stent Viabil Biliary 02kue2di - [id number] Implanted:Qty : 1 on 07/17/2021 by Guillermo Jones DO at ENDOSCOPY [facility] [employer] [id number] 03/04/2024 [id number] / [id number] / [id number] Port Implant W/8f Poly Cath - [id number] Implanted:Qty : 1 on 09/13/2023 by Gary Rodriguez DO at OR [facility] Right: Chest CR BARD : PERIPHERAL VASCULAR [id number] 04/24/2025 [id number] / / [id number] documented as of this encounter Visit Diagnoses [...] 6 mg 6 mg, Subcutaneous, ONCE, On Sat11/08/23 at 1330, For 1 dose Given 11/08/2023 12:54 PM EST 6 mg Arm Right Upper documented in this encounter Advance Directives Documents on File Type Date Recorded Patient Technical Illustrator Expl anation Advance Directives and Living Will [...] Agen t (per Health Care Power of Distribution System Operator document) .[employer] Temo Cramer Sibling First Alternate Health Care Agent (per Health Care Power of Distribution System Operator document) [email or web address] Care Teams Leak Patcher Relationship Specialty Start Date End Date Sergio Barriga MD [address] [place] [address] PCP - General Family Medicine 08/07/19 documented as of this encounter
--- OUTSIDE RECORDS SUMMARY | 2024-04-19 00:06 | External Medical Summary | Summary of Care ---
Author Name Unknown Organization [facility] Address [address] [place] [address] Phone [phone] Care Team Providers Care Manager Paid Name Role Phone Sergio Barriga MD Primary Care Provider + Encounter Details Date Type Department Care Team (Late st Contact Info) Description 11/28/2023 Orders Only Hematology/Oncology [facility] [place] [facility] [place] [phone] [place] Armando MD 200 [facility] [place] [address] Allergies Active Allergy Reactions Criticality Noted Date [...] mouth in the morning. 0 Active Pancrelipase (Cgc-Tqaa-Jmfd) 34107-[address] UNIT Oral Capsule Delayed Release Particles (Creon 96603) 2 cap with meals, 1 with larger [...] EVERY MORNING 90 Tablet 2 09/25/2023 Active documented as of this encounter (statuses [...] lipids WNL Factor V+heteroqygous. 04/10 colon-Dr Eller [facility] 2 polyps 1 tubular adenoma. Kevin 6y 2013 sleep study [facility] WNL [address] Elena [facility] [...] WNL, antiphos lipids WNL Factor V+heteroqygous. FM NM-QWLK-OVPMQ DIS NEC documented as of this encounter (statuses as of 01/13/2024) Immunizations Name Administration Dates Next Due COVID-19 mRNA, LNP-s, No Pre serve, 2-Dose Series (Beijingyicheng) 01/13/2022,07/21/2021,02/01/2021,01/04 COVID-19, MRNA-LNP, 23-24, P F, 30 MCG/0.3 mL, 12 YRS AND ABOVE, IM ([facility]) 09/12/2023 Covid-19, Mrna, Lnp-s, Pf, B ivalent, 30 Mcg, IM, 12 yrs and above (Beijingyicheng) 08/16/2022 HEP A - Hepatitis A (Adult [...] Description 01/20/2024 9:10 AM EST Laboratory Laboratory [facility] [place] [address] [place] [phone] Rehana, Lab [address] [facility] [place] [address] 01/21/2024 9:15 AM EST Hem/Onc Treatment Hematology/Oncology Treatment, [place] [address] [place] [phone] Rehana, Chair 8 Hem Onc [facility] [address] [place] [address] 01/27/2024 11:00 AM EST Imaging Radiology [facility] 1st [facility], [place] [address] [facility] [address] 02/04/2024 8:45 AM EDT Office Visit Hematology/Oncology [facility] Rehana [place] [address] [place] [address] [phone] Dakota Armando MD [address] [place] [address] 07/20/2024 10:15 AM EDT Office Visit Dermatology [facility] [place] [address] [place] [address] Cal Jernigan MD [address] [place] [address] 07/21/2024 1:45 PM EDT Office Visit Hematology/Oncology [facility] Rehana [place] [address] [address] [phone] Dakota Armando MD [address] [place] [address] 07/24/2024 11:40 AM EDT Office Visit Family Practice [facility] [address] [place] [address] Sergio Barriga MD [address] [place] [address] Scheduled Procedures Name Priority Associated Diagnoses Date/Ti [...] this encounter Medical Devices Implanted Type Area Commercial Lines Assistant Device Identifier Shelf Expiration Date Model / Serial / Lot Duraclip 16mm Xlg Repostn - [id number] Implanted:Qty : 1 on 07/17/2021 by Guillermo Jones DO at ENDOSCOPY [facility] [employer] [id number] 01/10/2024 [id number] / / [id number] Stent Viabil Biliary [id number] - [id number] Implanted:Qty : 1 on 07/17/2021 by Guillermo Jones DO at ENDOSCOPY [facility] [employer] [id number] 03/04/2024 [id number] / [id number] / [id number] Port Implant W/8f Poly Cath - [id number] Implanted:Qty : 1 on 09/13/2023 by Gary Rodriguez DO at OR [facility] Right: Chest CR BARD : PERIPHERAL VASCULAR [id number] 04/24/2025 [id number] / / [id number] documented as of this encounter Procedures Procedure Name Priority Date/Time Associated Diagnosis Comments RADIOLOGY EXAM - CT (IMAGES ONLY, NO REPORT) Routine 11/28/2023 3:10 PM EST documented in this encounter Results * RADIOLOGY EXAM - CT (IMAGES ONLY, NO REPORT) (11/28/2023 3:10 PM EST) 11/28/2023 3:08 PM EST Narrative Scheduling, Silent - 01/13/2024 10:49 AM EST This is an imaging study not interpreted or resulted by a [facility] or [facility] contracted radiologist. Dakota Armando MD RAD CT documented in this encounter Advance Directives Documents on File Type Date Recorded Patient Ice Rink Attendant Expl anation Advance Directives and Living [...] Agen t (per Health Care Power of Automatic Corn Grinder Operator document) [email or web address] [email or web address] Cramer Sibling First Alternate Health Care Agent (per Health Care Power of Automatic Corn Grinder Operator document) [email or web address] Care Teams Manager Paid Relationship Specialty Start Date End Date Sergio Barriga MD [address] [place] [address] PCP - General Family Medicine 08/07/19 documented as of this encounter
--- OUTSIDE RECORDS SUMMARY | 2024-04-19 00:06 | External Medical Summary | Summary of Care ---
Author Name Unknown Organization [facility] Address [address] [place] [address] Phone [phone] Care Team Providers Care Communicable Disease Specialist Name Role Phone Sergio Barriga MD Primary Care Provider + Encounter Details Date Type Department Care Team (Latest Contact Info) Description 11/28/2023 3:10 PM EST - 11/28/2023 11:59 PM EST Hospital Encounter Radiology Film File [address] [place] [address] Discharge Disposition: Home - Self Care Allergies Active Allergy Reactions Criticality Noted Date Comments Lisinopril Cough Low 08/07/2019 documented as of this encounter (statuses as of 01/14/2024) Medications Medication Sig Dispensed Refills Start Date End Date Status Boost 100 Calorie Smart Oral Liquid Take by mouth. 0 Act miley Multi Vitamin Daily Oral Tablet Take by mouth. 0 Act miley Aspirin 81 MG Oral Tablet Delayed Release Take 1 Tablet by mouth in the morning. 0 Active Pancrelipase (Kvl-Vczp-Mqhb) 11968-16915 UNIT Oral Capsule Delayed Release Particles (Creon 31319) 2 cap with meals, 1 with larger [...] as of this encounter (statuses as of 01/14/2024) Active Problems Problem Noted Date Diagnosed Date [...] lipids WNL Factor V+heteroqygous. 04/10 colon-Dr Eller [facility] 2 polyps 1 tubular adenoma. Kevin 6y 2013 sleep study [facility] WNL [address] Elena [facility] Essential hypertension with goal blood pressure less [...] as of this encounter (statuses as of 01/14/2024) Resolved Problems Problem Noted Date Diagnosed Date [...] WNL, antiphos lipids WNL Factor V+heteroqygous. FM YO-ZXWO-BCHJS DIS NEC documented as of this encounter (statuses as of 01/14/2024) Immunizations Name Administration Dates Next Due COVID-19 mRNA, LNP-s, No Pre serve, 2-Dose Series (CardSpring) 01/13/2022,07/21/2021,02/01/2021,01/04 COVID-19, MRNA-LNP, 23-24, P F, 30 MCG/0.3 mL, 12 YRS AND ABOVE, IM ([facility]) 09/12/2023 Covid-19, Mrna, Lnp-s, Pf, B ivalent, 30 Mcg, IM, 12 yrs and above (CardSpring) 08/16/2022 HEP A - Hepatitis A (Adult [...] EST Laboratory Laboratory [facility] [place] [address] [place] [phone] Rehana, Lab [address] [place] [address] 01/21/2024 9:15 AM EST Hem/Onc Treatment Hematology/Oncology Treatment, [place] [address] [place] [phone] Rehana, Chair 8 Hem Onc [facility] [address] [place] [address] 01/27/2024 11:00 AM EST Imaging Radiology [address] [place] [address] 02/04/2024 8:45 AM EDT Office Visit [facility]ematology[facility]Oncology [facility] [place] [address] [place] [phone] Dakota Armando MD [address] [place] [address] 07/20/2024 10:15 AM EDT Office Visit Dermatology [facility] [place] [address] [place] [address] Cal Jernigan MD [address] [place] [address] 07/21/2024 1:45 PM EDT Office Visit Hematology/Oncology [facility] [place] [address] [place] [phone] Dakota Armando MD [address] [place] [address] 07/24/2024 11:40 AM EDT Office Visit Family Practice [facility] [address] [facility] [place] [address] Sergio Barriga MD [address] [place] [address] Scheduled Procedures Name Priority Associated Diagnoses Date/Ti [...] this encounter Medical Devices Implanted Type Area Therapy Tech Device Identifier Shelf Expiration Date Model / Serial / Lot Duraclip 16mm Xlg Repostn - [id number] Implanted:Qty : 1 on 07/17/2021 by Guillermo Jones DO [place] [facility] [place] [employer] REYNALDO [id number] 01/10/2024 [id number] / / [id number] Stent Viabil Biliary 24dfz0rb - [id number] Implanted:Qty : 1 on 07/17/2021 by Guillermo Jones DO [place] [facility] [place] [employer] [id number] 03/04/2024 [id number] / [id number] / [id number] Port Implant W/8f Poly Cath - [id number] Implanted:Qty : 1 on 09/13/2023 by Gary Rodriguez DO at OR [facility] Right: Chest CR BARD : PERIPHERAL VASCULAR [id number] 04/24/2025 [id number] / / [id number] documented as of this encounter Procedures Procedure [...] interpreted or resulted by a [facility] or [employer] [place] contracted radiologist. Dakota Armando MD RAD CT documented in this encounter Advance Directives Documents on File Type Date Recorded Patient Refrigeration System Installer Expl anation Advance Directives and Living Will [...] Agen t (per Health Care Power of Lead Teacher document) [email or web address] Sibling First Alternate Health Care Agent (per Health Care Power of Lead Teacher document) [email or web address] Care Teams Communicable Disease Specialist Relationship Specialty Start Date End Date Sergio Barriga MD [address] [place] [address] PCP - General Family Medicine 08/07/19 documented as of this encounter
--- OUTSIDE RECORDS SUMMARY | 2024-04-19 00:06 | External Medical Summary | Summary of Care ---
Author Name Unknown Organization [facility] Address [address] [place] [address] Phone [phone] Care Team Providers Care Litigation Legal Secretary Name Role Phone Sergio Barriga MD Primary Care Provider + Reason for Visit * Reason Comments Treatment * Episode Based Medications (Routine) - Authorized [...] 0.5 MG Dakota Armando MD [address] [place], [place] [address] Anc Hem/Onc Scene[facility] DEPT CLOSED - 10/08/23 [address] [place] [address] Referral ID Status Reason Start Date Expiration Date V isits Requested Visits Authorized [id number] Authorized 08/30/2023 11/24/2099 999 99 Encounter Details Date Type Department Care Team (Latest Contact Info) Description 11/05/2023 9:00 AM EST Hem/Onc Treatment Hematology/Oncolog y Treatment, [place] [address] [place] [address] Rehana, Chair 7 Hem Onc Scenery [address] [place] [address] Encounter for antineoplastic chemotherapy*; 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); 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) Allergies Active Allergy Reactions Criticality Noted Date Comments Lisinopril Cough Low 08/07/2019 documented as of this encounter (statuses as of 01/12/2024) Medications Medication Sig Dispensed Refills Start Date End Date Status Boost 100 Calorie Smart Oral Liquid Take by mouth. 0 Active Multi Vitamin Daily Oral Tablet Take by mouth. 0 Active Aspirin 81 MG Oral Tablet Delayed Release Take 1 Tablet by mouth in the morning. 0 Active Pancrelipase (Pjq-Sqyk-Gfzt) 36190-55033 UNIT Oral Capsule Delayed Release Particles (Creon 09013) 2 cap with meals, 1 with larger snack. (up to 8/day) 240 Capsule 11 2 Active Continuation of patient use of medical marijuana is approved Inhale 1 Capsule by mouth as needed. 0 2 Active Pantoprazole Sodium 40 MG Oral Tablet Delayed Release (Protonix) TAKE 1 TABLET BY MOUTH EVERY MORNING 90 Tablet 3 3 Active Lidocaine-Prilo clifton 2.5-2.5 % External Cream (Emla)Indicatio ns: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),Metastasi s to liver (HCC) APPLY TO SKIN OVER MEDIPORT & COVER 1HR PRIOR TO ACCESSING. 30 g 1 3 Active Ondansetron HCl 8 MG Oral Tablet (Zofran)Indicat ions: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),Metastasi s to liver (HCC) Take 1 Tablet by mouth every 8 hours as needed for Nausea. 30 Tablet 3 3 Active Prochlorperazin e Maleate 10 MG Oral Tablet (Compazine)Jennifer cations:Maligna nt neoplasm of body of pancreas (HCC),Metastasi s to liver (HCC) Take 1 Tablet by mouth every 6 hours as needed for Nausea. 30 Tablet 3 3 Active OLANZapine 10 MG Oral Tablet (ZyPREXA)Indica tions: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),Metastasi s to liver (HCC) Take 1 tablet by mouth before bed x4 nights starting day 1 of each chemo cycle 48 Tablet 0 3 Active Loratadine 10 MG Oral Tablet (Claritin)Indic [...] BY MOUTH AT BEDTIME 90 Tablet 2 3 12/19/19 24 Discontinued Omeprazole 20 MG Oral Capsule Delayed Release (PriLOSEC) Take 1 Capsule by mouth in the morning. 0 11/05/20 23 Discontinued(Med ication List Clean Up) ALPRAZolam 1 MG Oral Tablet (xaNAX)Indicati ons:Chronic insomnia TAKE ONE TABLET BY MOUTH AT BEDTIME NEEDED FOR SLEEP 30 Tablet 0 3 11/22/20 23 Discontinued documented as of this encounter (statuses as of 01/12/2024) Active Problems Problem Noted Date Diagnosed Date [...] WNL Factor V+heteroqygous. 04/10 colon-[facility] Eller [facility] 2 polyps 1 tubular adenoma. Kevin 6y 2013 sleep study [facility] WNL [address] [facility] as of this encounter (statuses as of 01/12/2024) Resolved Problems Problem Noted Date Diagnosed Date [...] WNL, antiphos lipids WNL Factor V+heteroqygous. FM JO-TYGE-ZTUHQ DIS NEC documented as of this encounter (statuses as of 01/12/2024) Immunizations Name Administration Dates Next Due COVID-19 mRNA, LNP-s, No Pre serve, 2-Dose Series ([facility] 01/13/2022,07/21/2021,02/01/2021,01/04 COVID-19, MRNA-LNP, 23-24, P F, 30 MCG/0.3 mL, 12 YRS AND ABOVE, [facility] 09/12/2023 Covid-19, Mrna, Lnp-s, Pf, B ivalent, 30 Mcg, IM, 12 yrs and above ([facility] 08/16/2022 HEP A - Hepatitis A (Adult [...] as of this encounter Nursing Notes * Idalia Berry RN - 11/05/2023 9:55 AM EST Safety and Risk for Injury Patient will remain free from injury. Ensure appropriate safety devices are available. Provide and maintain safe environment. Functional status at today's visit: Fully active, [...] symptoms or adverse side effects during treatment. Goals: Patient here for FOLFIRINOX. Patient reported pain in his right side after lifting last week. Amber VILLAFUERTE ordered a chest xray. Possible barriers to meeting goals: IV pole and central line. Stability of the patient: Moderately stable - low risk of patient condition declining or worsening Summary regarding today's goals: Met: patient received treatment without any issues. Patient's chest xray review by Dr. Armando and patient was placed on an antibiotic. Patient understood instructions to start antibiotic. documented in this encounter Plan of Treatment Upcoming Encounters Date Type Department Care Team (Late st Contact Info) Description 01/20/2024 9:10 AM EST Laboratory Laboratory [facility] [address] [facility] [place] [phone] [place], Lab [address] [facility] [place] [address] 01/21/2024 9:15 AM EST Hem/Onc Treatment Hematology/Oncology Treatment, [place] [address] [place] [address] Rehana, Chair [address] Hem [address] [place] [address] 01/27/2024 11:00 AM EST Imaging Radiology [facility] 1st [facility], [place] [address] [facility] [address] 02/04/2024 8:45 AM EDT Office Visit Hematology/Oncology [facility] [place] [address] [place] [address] [address] Dakota Armando MD [address] [place] [address] 07/20/2024 10:15 AM EDT Office Visit [address]ermatology [address] [place] [address] Cal Jernigan MD 200 [facility] [place], [place] [address] 07/21/2024 1:45 PM EDT Office Visit Hematology/Oncology [facility] 200 [facility] [place], [place] [address] Dakota Armando MD 200 [facility] [place], [place] [address] 07/24/2024 11:40 AM EDT Office Visit Family Practice [facility] [address] [facility] [place] [address] Sergio Barriga MD [address] [facility] [place] [address] Scheduled Procedures Name Priority Associated Diagnoses Date/Ti [...] this encounter Medical Devices Implanted Type Area After School Program Teacher Device Identifier Shelf Expiration Date Model / Serial / Lot Duraclip 16mm Xlg Repostn - [id number] Implanted:Qty : 1 on 07/17/2021 by Guillermo Jones DO at [place] [facility] [employer] [id number] 01/10/2024 [id number] / / [id number] Stent Viabil Biliary [id number] - [id number] Implanted:Qty : 1 on 07/17/2021 by Guillermo Jones DO at [facility] [employer] [id number] 03/04/2024 [id number] / [id number] / [id number] Port Implant W/8f Poly Cath - [id number] Implanted:Qty : 1 on 09/13/2023 by Gary Rodriguez DO at OR [facility] Right: Chest CR BARD : PERIPHERAL VASCULAR [id number] 04/24/2025 [id number] / / [id number] documented as of this encounter Visit Diagnoses [...] mg 0.4 mg, IV Push, ONCE, On Sat11/05/23 at 1015, For 1 dose, Give before CPT-11 Given 11/05/2023 12:49 PM EST 0.4 mg D5W IV solution Intravenous, at 50 mL/hr, CONTINUOUS, Starting on Sat11/05/23 at 1015, Until Sat11/05/23 at 1901 Start Infusion 11/05/2023 9:36 AM EST 500 mL 50 mL/hr Fluorouracil (5-Fu) 4,300 mg for Home Infusion 4,300 mg (rounded from 4,296 mg = 2,400 mg/m2 1.79 m2 Treatment Plan BSA from Recorded weight), Intravenous, Administer over 46 Hours, Home Infusion Pharmacy to specify base solution and volume., ONCE, 1 dose, On Sat11/05/23 at 1230 Start Infusion 11/05/2023 2:40 PM EST 4,300 mg 3 mL/hr Fosaprepitant Dimeglumine (Emend) 150 mg, ondansetron (Zofran) 16 mg, dexamethasone sodium phosphate 12 mg in NSS 250 mL Infusion 150 mg, IV Piggyback, ONCE, 1 dose, On Sat11/05/23 at 1015, Administer over 30 Minutes, Give 30 minutes prior to chemotherapy. Infuse over 30 minutes. Start Infusion 11/05/2023 9:36 AM EST 150 mg 500 mL/hr irinotecan HCl (Camptosar) 260 mg in D5W 500 mL infusion 260 mg (rounded from 268.5 mg = 150 mg/m2 1.79 m2 Treatment Plan BSA from Recorded weight), IV Piggyback, ONCE, 1 dose, On Sat11/05/23 at 1100, Administer over 90 Minutes, PROTECT FROM LIGHT Start Infusion 11/05/2023 12:59 PM EST 260 mg 333.33 mL/hr leucovorin calcium 700 mg in D5W 250 mL INFUSION 700 mg (rounded from 716 mg = 400 mg/m2 1.79 m2 Treatment Plan BSA from Recorded weight), IV Piggyback, ONCE, 1 dose, On Sat11/05/23 at 1100, Administer over 90 Minutes, Run concurrently with irinotecan immediately prior to 5FU Start Infusion 11/05/2023 12:59 PM EST 700 mg 166.67 mL/hr Oxaliplatin (Eloxatin) 150 mg in D5W 500 mL infusion 150 mg (rounded from 152.15 mg = 85 mg/m2 1.79 m2 Treatment Plan BSA from Recorded weight), IV Piggyback, ONCE, 1 dose, On Sat11/05/23 at 1015, Administer over 120 Minutes, Flush with D5W only! Start Infusion 11/05/2023 10:44 AM EST 150 mg 250 mL/hr documented in this encounter Advance Directives Documents on File Type Date Recorded Patient Chief Design Drafter Expl anation Advance Directives and Living Will [...] Agen t (per Health Care Power of Blender Machine Operator document) [email or web address] [email or web address] [email or web address] First Alternate Health Care Agent (per Health Care Power of Blender Machine Operator document) [email or web address] Care Teams Litigation Legal Secretary Relationship Specialty Start Date End Date Sergio Barriga MD [address] [place] [address] PCP - General Family Medicine 08/07/19 documented as of this encounter
--- OUTSIDE RECORDS SUMMARY | 2024-04-19 00:06 | External Medical Summary | Summary of Care ---
Author Name Unknown Organization [facility] Address [address] [place] [address] Phone [phone] Care Team Providers Care Diesel Engine Operator Name Role Phone Sergio Barriga MD Primary Care Provider + Reason for Visit * Reason Comments Chemotherapy Oxaliplatin, irinote can, leucovorin, 5fu pump. 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) Procedures KS LEUCOVORIN CALCIUM INJECTION KS FLUOROURACIL INJECTION KS IRINOTECAN INJECTION KS OXALIPLATIN KS FOSAPREPITANT INJECTION BEVACIZUMAB-BVZR, BIOSIMILAR, 10 MG (ZIRABEV), IV KS INJECTION, UDENYCA 0.5 MG Dakota Armando MD [address] [place], [place] [address] Anc Hem/Onc [facility] Rehana DEPT CLOSED - 10/08/23 200 [facility] [place] [address] Referral ID Status Reason Start Date Expiration Date V isits Requested Visits Authorized [id number] Authorized 08/30/2023 11/24/2099 999 99 Encounter Details Date Type Department Care Team (Latest Contact Info) Description 12/24/2023 10:30 AM EST Hem/Onc Treatment Hematology/Oncolog y Treatment, [place] [address] [place] [address] Rehana, Chair 11 Hem Onc Scenery [address] [place] [address] Encounter for antineoplastic chemotherapy*; Metastasis to liver [...] mouth in the morning. 0 Active Pancrelipase (Ljd-Jtla-Ubgd) 67752-61474 UNIT Oral Capsule Delayed Release Particles (Creon 49135) 2 cap with meals, 1 with larger [...] -19) 10/16/2022 Coronary artery disease invo lving [place] coronary artery of [place] heart without angina pectoris 08/20/2022 Overview: Severe [...] WNL, antiphos lipids WNL Factor V+heteroqygous. FM JS-AYGN-VXTFD DIS NEC documented as of this encounter (statuses as of 01/15/2024) Immunizations Name Administration Dates Next Due COVID-19 mRNA, LNP-s, No Pre serve, 2-Dose Series ([employer]) 01/13/2022,07/21/2021,02/01/2021,01/04 COVID-19, MRNA-LNP, 23-24, P F, 30 MCG/0.3 mL, 12 YRS AND ABOVE, IM [facility] 09/12/2023 Covid-19, Mrna, Lnp-s, Pf, B ivalent, 30 Mcg, IM, 12 yrs and above ([employer]) 08/16/2022 HEP A - Hepatitis A (Adult [...] 01/20/2024 9:10 AM EST Laboratory Laboratory [facility] [place] [address] [place] [phone] [place], Lab [facility] 200 [facility] [place] [address] 01/21/2024 9:15 AM EST Hem/Onc Treatment Hematology/Oncology Treatment, [place] [address] [place] [phone] Rehana, Chair [address] Hem [address] [place] [address] 01/27/2024 11:00 AM EST Imaging Radiology [facility] 1st [facility], [place] 132 [facility] [place] [id number] 02/04/2024 8:45 AM EDT Office Visit Hematology/Oncology [facility] [place] [address] [phone] Dakota Armando MD 200 [facility] [place] [address] 07/20/2024 10:15 AM EDT Office Visit Dermatology [facility] [place] [address] [place] [address] Cal Jernigan MD 200 [facility] [place] [address] 07/21/2024 1:45 PM EDT Office Visit Hematology/Oncology [facility] [place] [address] [phone] Dakota Armando MD [address] [place] [facility] [address] 07/24/2024 11:40 AM EDT Office Visit Family Practice [facility] [address] [place] [address] Sergio Barriga MD [address] [place] [address] Scheduled Procedures Name Priority Associated Diagnoses Date/Ti [...] this encounter Medical Devices Implanted Type Area Education Coordinator Device Identifier Shelf Expiration Date Model / Serial / Lot Duraclip 16mm Xlg [facility] [id number] Implanted:Qty : 1 on 07/17/2021 by Guillermo Jones DO at ENDOSCOPY [facility] [employer] [id number] 01/10/2024 [id number] / / [id number] Stent Viabil Biliary [id number] - [id number] Implanted:Qty : 1 on 07/17/2021 by Guillermo Jones DO at ENDOSCOPY [facility] [employer] [id number] 03/04/2024 [id number] / [id number] / [id number] Port Implant W/8f Poly Cath - [id number] Implanted:Qty : 1 on 09/13/2023 by Gary Rodriguez DO at OR [facility] Right: Chest CR BARD : PERIPHERAL VASCULAR [id number] 04/24/2025 [id number] / / [id number] documented as of this encounter Visit Diagnoses [...] Documents on File Type Date Recorded Patient 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
--- OUTSIDE RECORDS SUMMARY | 2024-04-19 00:06 | External Medical Summary | Summary of Care ---
Author Name Unknown Organization [facility] Address [address] [place] [address] Phone [phone] Care Team Providers Care Toe Lining Closer Name Role Phone Segrio Barriga MD Primary Care Provider + Reason [...] 0.5 MG Dakota Armando MD [address] [place], [place] [address] Anc Hem/Onc Scene[facility]aine Kimball DEPT CLOSED - 10/08/23 [address] [place] [phone] Referral ID Status Reason Start Date Expiration Date V isits Requested Visits Authorized [id number] Authorized 08/30/2023 11/24/2099 999 99 Encounter Details Date Type Department Care Team (Latest Contact Info) Description 11/05/2023 9:00 AM EST Hem/Onc Treatment Hematology/Oncolog y Treatment, [place] [address] [place] [address] Rehana, Chair 7 Hem Onc Scenery [address] [place] [address] Encounter for antineoplastic chemotherapy*; 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); 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) Allergies Active Allergy Reactions Criticality Noted Date Comments Lisinopril Cough Low 08/07/2019 documented as of this encounter (statuses as of 01/11/2024) Medications Medication Sig Dispensed Refills Start Date End Date Status Boost 100 Calorie Smart Oral Liquid Take by mouth. 0 Active Multi Vitamin Daily Oral Tablet Take by mouth. 0 Active Aspirin 81 MG Oral Tablet Delayed Release Take 1 Tablet by mouth in the morning. 0 Active Pancrelipase (Qtw-Isaf-Cmaz) 52575-87812 UNIT Oral Capsule Delayed Release Particles (Creon 92093) 2 cap with meals, 1 with larger [...] as of this encounter (statuses as of 01/11/2024) Active Problems Problem Noted Date Diagnosed Date Malignant neoplasm of body of pancreas 3 Metastasis to liver 08/30/2023 Encounter for antineoplastic chemotherapy 2022 History of carcinoma of pancreas 07/18/2023 Post-viral cough syndrome 07/09/2023 Upper airway cough syndrome 07/09/2023 History of 2019 novel coronavirus disease (COVID -19) 10/16/2022 Coronary artery disease invo lving [place] coronary artery of [place] heart without angina pectoris 08/20/2022 Overview: Severe [...] as of this encounter (statuses as of 01/11/2024) Resolved Problems Problem Noted Date Diagnosed Date [...] WNL, antiphos lipids WNL Factor V+heteroqygous. FM BI-YRYU-YTDYG DIS NEC documented as of this encounter (statuses as of 01/11/2024) Immunizations Name Administration Dates Next Due COVID-19 mRNA, LNP-s, No Pre serve, 2-Dose Series ([employer]inny) 01/13/2022,07/21/2021,02/01/2021,01/04 COVID-19, MRNA-LNP, 23-24, P F, 30 MCG/0.3 mL, 12 YRS AND ABOVE, [facility] 09/12/2023 Covid-19, Mrna, Lnp-s, Pf, B ivalent, 30 Mcg, IM, 12 yrs and above ([facility]inny) 08/16/2022 HEP A - Hepatitis A (Adult [...] Description 01/20/2024 9:10 AM EST Laboratory Laboratory [facility] 200 [facility] [place] [phone] [place], Lab [address] [facility] [place] [address] 01/21/2024 9:15 AM EST Hem/Onc Treatment Hematology/Oncology Treatment, [place] [address] [place] [address] Rehana, Chair 8 Hem On[address] [place] [address] 01/27/2024 11:00 AM EST Imaging Radiology [facility] 1st [facility], [place] [address] [facility] [address] 02/04/2024 8:45 AM EDT Office Visit Hematology/Oncology [facility] [place] [address] [place] [address] [address] Dakota Armando MD [address] [place] [address] 07/20/2024 10:15 AM EDT Office Visit Dermatology [address] [place] [address] Cal Jernigan MD 200 [facility] [place], [place] [address] 07/21/2024 1:45 PM EDT Office Visit Hematology/Oncology [facility] 200 [facility] [place] [address] Dakota Armando MD 200 [facility] [place] [address] 07/24/2024 11:40 AM EDT Office Visit Family Practice Health system [address] [facility] [place] [address] Sergio Barriga MD [address] [facility] [place] [address] Scheduled Procedures Name Priority Associated Diagnoses Date/Ti [...] this encounter Medical Devices Implanted Type Area Environmental Projects Advisor Device Identifier Shelf Expiration Date Model / Serial / Lot Duraclip 16mm Xlg Repostn - [id number] Implanted:Qty : 1 on 07/17/2021 by Guillermo Jones DO at [facility]COPY [facility] [employer] [id number] 01/10/2024 [id number] / / [id number] Stent Viabil Biliary [id number] - [id number] Implanted:Qty : 1 on 07/17/2021 by Guillermo Jones DO at ENDOSCOPY [facility] [employer] [id number] 03/04/2024 [id number] / [id number] / [id number] Port Implant W/8f Poly Cath - [id number] Implanted:Qty : 1 on 09/13/2023 by Gary Rodriguez DO at OR [facility] Right: Chest CR BARD : PERIPHERAL VASCULAR [id number] 04/24/2025 [id number] / / [id number] documented as of this encounter Visit Diagnoses [...] Documents on File Type Date Recorded Patient Ornamenter Hand Expl anation Advance Directives and Living [...] Agen t (per Health Care Power of Junior Recruiter document) [email or web address] Bela Sibling First Alternate Health Care Agent (per Health Care Power of Junior Recruiter document) [email or web address] Care Teams Toe Lining Closer Relationship Specialty Start Date End Date Sergio Barriga MD [address] [place] [address] PCP - General Family Medicine 08/07/19 documented as of this encounter
--- OUTSIDE RECORDS SUMMARY | 2024-04-19 00:06 | External Medical Summary | Summary of Care ---
Author Name Unknown Organization [facility] Address [address] [place] [address] Phone [phone] Care Team Providers Care Manager Background Name Role Phone Segrio Barriga MD Primary Care Provider + Reason for Visit * Reason Comments Treatment * Episode Based Medications (Routine) - Authorized Specialty Diagnoses / Procedures Referred By Linda hu Referred To Contact Diagnoses Encounter for antineoplastic chemotherapy 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) 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) Procedures WI LEUCOVORIN CALCIUM INJECTION WI FLUOROURACIL INJECTION WI IRINOTECAN INJECTION WI OXALIPLATIN WI FOSAPREPITANT INJECTION BEVACIZUMAB-BVZR, BIOSIMILAR, 10 MG (ZIRABEV), IV WI INJECTION, UDENYCA 0.5 MG Dakota Armando MD [address] [place], [place] [address] Anc Hem/Onc Sceneelaine Kimball DEPT CLOSED - 10/08/23 [address] [place] [address] Referral ID Status Reason Start Date Expiration Date V isits Requested Visits Authorized [id number] Authorized 08/30/2023 11/24/2099 999 99 Encounter Details Date Type Department Care Team (Latest Contact Info) Description 11/05/2023 9:00 AM EST Hem/Onc Treatment Hematology/Oncolog y Treatment, [place] [address] [place] [address] Rehana, Chair 7 Hem Onc Scenery [address] [place] [address] Encounter for antineoplastic chemotherapy*; Metastasis to liver [...] mouth in the morning. 0 Active Pancrelipase (Pmz-Fiqw-Qocj) 32425-90978 UNIT Oral Capsule Delayed Release Particles (Creon 03217) 2 cap with meals, 1 with larger [...] lipids WNL Factor V+heteroqygous. 04/10 colon-Dr Eller [facility] 2 polyps 1 tubular adenoma. Kevin 5y 2013 sleep study [facility] WNL [address] Elena [facility] Essential hypertension with goal blood [...] WNL, antiphos lipids WNL Factor V+heteroqygous. FM XN-MFVT-TZMJO DIS NEC documented as of this encounter (statuses as of 01/12/2024) Immunizations Name Administration Dates Next Due COVID-19 mRNA, LNP-s, No Pre serve, 2-Dose Series ([employer]) 01/13/2022,07/21/2021,02/01/2021,01/04 COVID-19, MRNA-LNP, 23-24, P F, 30 MCG/0.3 mL, 12 YRS AND ABOVE, IM ([facility]) 09/12/2023 Covid-19, Mrna, Lnp-s, Pf, B ivalent, 30 Mcg, IM, 12 yrs and above ([employer]) 08/16/2022 HEP A - Hepatitis A [...] Description 01/20/2024 9:10 AM EST Laboratory Laboratory [facility] 200 [facility] [place] [address] [place], Lab [address] [facility] [place] [address] 01/21/2024 9:15 AM EST Hem/Onc Treatment Hematology/Oncology Treatment, [place] [address] [place] [address] Rehana, Chair 8 Hem On[address] [place] [address] 01/27/2024 11:00 AM EST Imaging Radiology [facility] 1st [facility], [place] [facility] [address] 02/04/2024 8:45 AM EDT Office Visit Hematology/Oncology [facility] [place] [address] [place] [address] [address] Dakota Armando MD [address] [place] [address] 07/20/2024 10:15 AM EDT Office Visit Dermatology [address] [place] [address] Cal Jernigan MD 200 [facility] [place], [place] [address] 07/21/2024 1:45 PM EDT Office Visit Hematology/Oncology [facility] 200 [facility] [place], [place] [address] Dakota Armando MD 200 [facility] [place], [place] [address] 07/24/2024 11:40 AM EDT Office Visit Family Practice [facility] [address] [facility] [place] [address] Sergio Barriga MD [address] [facility] [place] [address] Scheduled Procedures Name Priority Associated Diagnoses Date/Ti [...] this encounter Medical Devices Implanted Type Area Electrophysiology Tech Device Identifier Shelf Expiration Date Model / Serial / Lot Duraclip 16mm Xlg Repostn - [id number] Implanted:Qty : 1 on 07/17/2021 by Guillermo Jones DO [place] [facility] [employer] [id number] 01/10/2024 [id number] / / [id number] Stent Viabil Biliary [id number] - [id number] Implanted:Qty : 1 on 07/17/2021 by Guillermo Jones DO at [place] [facility] [employer] [id number] 03/04/2024 [id number] / [id number] / [id number] Port Implant W/8f Poly Cath - [id number] Implanted:Qty : 1 on 09/13/2023 by Gary Rodriguez DO at OR [facility] Right: Chest CR BARD : PERIPHERAL VASCULAR [id number] 04/24/2025 [id number] / / [id number] documented as of this encounter Visit Diagnoses [...] on File Type Date Recorded Patient Park Police Expl anation Advance Directives and Living Will [...] Agen t (per Health Care Power of Ripsaw Matcher document) [email or web address] Temo Bela Sibling First Alternate Health Care Agent (per Health Care Power of Ripsaw Matcher document) [email or web address] Care Teams Manager Background Relationship Specialty Start Date End Date Sergio Barriga MD [address] [place] [address] PCP - General Family Medicine 08/07/19 documented as of this encounter
--- OUTSIDE RECORDS SUMMARY | 2024-04-19 00:06 | External Medical Summary | Summary of Care ---
Author Name Unknown Organization [facility] Address [address] [place] [address] Phone [phone] Care Team Providers Care Testing Specialist Name Role Phone Sergio Barriga MD [...] 0.5 MG Dakota Armando MD [address] [place], [place] [address] Anc Hem/Onc [facility] Rehana DEPT CLOSED - 10/08/23 200 [facility] [place] [address] Referral ID Status Reason Start Date Expiration Date V isits Requested Visits Authorized [id number] Authorized 08/30/2023 11/24/2099 999 99 Encounter Details Date Type Department Care Team (Latest Contact Info) Description 12/24/2023 10:30 AM EST Hem/Onc Treatment Hematology/Oncolog y Treatment, [place] [address] [place] [phone] Rehana, Chair 11 Hem Onc Scenery [address] [place] [address] Encounter for antineoplastic chemotherapy*; Metastasis to liver [...] mouth in the morning. 0 Active Pancrelipase (Zqb-Uzpo-Ihfi) 67074-67[address] UNIT Oral Capsule Delayed Release Particles (Creon 44628) 2 cap with meals, 1 with larger [...] -19) 10/16/2022 Coronary artery disease invo lving [place] coronary artery of [place] heart without angina pectoris 08/20/2022 Overview: Severe [...] WNL, antiphos lipids WNL Factor V+heteroqygous. FM NO-LUTN-UGKFX DIS NEC documented as of this encounter (statuses as of 01/15/2024) Immunizations Name Administration Dates Next Due COVID-19 mRNA, LNP-s, No Pre serve, 2-Dose Series ([employer]) 01/13/2022,07/21/2021,02/01/2021,01/04 COVID-19, MRNA-LNP, 23-24, P F, 30 MCG/0.3 mL, 12 YRS AND ABOVE, IM ([facility]) 09/12/2023 Covid-19, Mrna, Lnp-s, Pf, B ivalent, 30 Mcg, IM, 12 yrs and above ([employer]) 08/16/2022 HEP A - Hepatitis A (Adult [...] Description 01/20/2024 9:10 AM EST Laboratory Laboratory [facility] [place] [address] [place] [phone] [place], Lab [facility] 200 [facility] [place] [address] 01/21/2024 9:15 AM EST Hem/Onc Treatment Hematology/Oncology Treatment, [place] [address] [place] [phone] Rehana, Chair 8 Hem On[address] [place] [address] 01/27/2024 11:00 AM EST Imaging Radiology [facility] 1st [facility], [place] 132 [facility] [place] [id number] 02/04/2024 8:45 AM EDT Office Visit Hematology/Oncology [facility] [place] [address] [place] [address] [phone] Dakota Armando MD 200 [facility] [place] [address] 07/20/2024 10:15 AM EDT Office Visit Dermatology [facility] [place] [address] [place] [place] [address] Cal [place] MD 200 [facility] [place] [address] 07/21/2024 1:45 PM EDT Office Visit Hematology/Oncology [facility] [place] [address] [phone] Dakota Armando MD [address] [place] [facility] [address] 07/24/2024 11:40 AM EDT Office Visit Family Practice [facility] [address] [place] [address] Sergio Barriga MD [address] [place] [address] Scheduled Procedures Name Priority Associated Diagnoses Date/Ti [...] this encounter Medical Devices Implanted Type Area Pallet Assembler Device Identifier Shelf Expiration Date Model / Serial / Lot Duraclip 16mm Xlg [facility] - [id number] Implanted:Qty : 1 on 07/17/2021 by Guillermo Jones DO [place] [facility] [employer] [id number] 01/10/2024 [id number] / / [id number] Stent Viabil Biliary [id number] - [id number] Implanted:Qty : 1 on 07/17/2021 by Guillermo Jones DO [place] [facility] [employer] [id number] 03/04/2024 [id number] / [id number] / [id number] Port Implant W/8f Poly Cath - [id number] Implanted:Qty : 1 on 09/13/2023 by Gary Rodriguez DO at OR [facility] Right: Chest CR BARD : PERIPHERAL VASCULAR [id number] 04/24/2025 [id number] / / [id number] documented as of this encounter Visit Diagnoses [...] Documents on File Type Date Recorded 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
--- OUTSIDE RECORDS SUMMARY | 2024-04-19 00:06 | External Medical Summary | Summary of Care ---
Author Name Unknown Organization [facility] Address [address] [place] [address] Phone [phone] Care Team Providers Care Lathe Hand Name Role Phone Sergio Barriga MD [...] 0.5 MG Dakota Armando MD [address] [place], [place] [address] Anc Hem/Onc Sceneelaine Kimball DEPT CLOSED - 10/08/23 [address] [place] [address] Referral ID Status Reason Start Date Expiration Date V isits Requested Visits Authorized [id number] Authorized 08/30/2023 11/24/2099 999 99 Encounter Details Date Type Department Care Team (Latest Contact Info) Description 11/05/2023 9:00 AM EST Hem/Onc Treatment Hematology/Oncolog y Treatment, [place] [address] [place] [address] Rehana, Chair 7 Hem Onc Scenery [address] [place] [address] Encounter for antineoplastic chemotherapy*; Metastasis to liver [...] mouth in the morning. 0 Active Pancrelipase (Jir-Ekby-Wiib) 71519-06[address] UNIT Oral Capsule Delayed Release Particles (Creon 05677) 2 cap with meals, 1 with larger [...] -19) 10/16/2022 Coronary artery disease invo lving [place] coronary artery of [place] heart without angina pectoris 08/20/2022 Overview: [...] WNL Factor V+heteroqygous. 04/10 colon-Dr Eller [facility] 2 polyps 1 tubular adenoma. Kevin 5y 2013 sleep study [facility] WNL [address] Elena [facility] Essential hypertension with goal blood pressure [...] WNL, antiphos lipids WNL Factor V+heteroqygous. FM PE-LIYQ-HNHMO DIS NEC documented as of this encounter (statuses as of 01/12/2024) Immunizations Name Administration Dates Next Due COVID-19 mRNA, LNP-s, No Pre serve, 2-Dose Series ([facility]) 01/13/2022,07/21/2021,02/01/2021,01/04 COVID-19, MRNA-LNP, 23-24, P F, 30 MCG/0.3 mL, 12 YRS AND ABOVE, IM ([facility]) 09/12/2023 Covid-19, Mrna, Lnp-s, Pf, B ivalent, 30 Mcg, IM, 12 yrs and above ([facility]) 08/16/2022 HEP A - Hepatitis A (Adult [...] Description 01/20/2024 9:10 AM EST Laboratory Laboratory [facility] 200 [facility] [place] [phone] [place], Lab [address] [facility] [place] [address] 01/21/2024 9:15 AM EST Hem/Onc Treatment Hematology/Oncology Treatment, [place] [address] [place] [address] Rehana, Chair 8 Hem On[address] [place] [address] 01/27/2024 11:00 AM EST Imaging Radiology [facility] 1st [facility], [place] 132 [facility] [address] 02/04/2024 8:45 AM EDT Office Visit Hematology/Oncology [facility] [place] [address] [place] [address] Dakota Armando MD [address] [place] [address] 07/20/2024 10:15 AM EDT Office Visit Dermatology [address] [place] [address] aCl Jernigan MD 200 [facility] [place], [place] [address] 07/21/2024 1:45 PM EDT Office Visit Hematology/Oncology [facility] 200 [facility] [place], [place] [address] Dakota Armando MD 200 [facility] [place], [place] [address] 07/24/2024 11:40 AM EDT Office Visit Family Practice [facility] [address] [facility] [place] [address] Sergio Barriga MD [address] [facility] [place] [address] Scheduled Procedures Name Priority Associated Diagnoses Date/Ti [...] this encounter Medical Devices Implanted Type Area Microbial Specialist Device Identifier Shelf Expiration Date Model / Serial / Lot Duraclip 16mm Xlg Repostn - [id number] Implanted:Qty : 1 on 07/17/2021 by Guillermo Jones DO at [facility] [facility] [employer] [id number] 01/10/2024 [id number] / / [id number] Stent Viabil Biliary [id number] - [id number] Implanted:Qty : 1 on 07/17/2021 by Guillermo Jones DO at [facility]OS[facility] [employer] [id number] 03/04/2024 [id number] / [id number] / [id number] Port Implant W/8f Poly Cath - [id number] Implanted:Qty : 1 on 09/13/2023 by Gary Rodriguez DO at OR [facility] Right: Chest CR BARD : PERIPHERAL VASCULAR [id number] 04/24/2025 [id number] / / [id number] documented as of this encounter Visit Diagnoses [...] Documents on File Type Date Recorded 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
--- OUTSIDE RECORDS SUMMARY | 2024-04-19 00:07 | External Medical Summary | Summary of Care ---
Author Name Unknown Organization [facility] Address [address] [place] [address] Phone [phone] Care Team Providers Care Fire Patroller Name Role Phone Sergio Barriga MD Primary [...] 0.5 MG Dakota Armando MD [address] [place], [place] [address] Anc Hem/Onc [place] Kimball DEPT CLOSED - 10/08/23 [address] [place] [address] Referral ID Status Reason Start Date Expiration Date V isits Requested Visits Authorized [id number] Authorized 08/30/2023 11/24/2099 999 99 Encounter Details Date Type Department Care Team (Latest Contact Info) Description 11/05/2023 9:00 AM EST Hem/Onc Treatment Hematology/Oncolog y Treatment, [place] [address] [place] [address] Rehana, Chair 7 Hem Onc Scenery [address] [place] [address] Encounter for antineoplastic chemotherapy*; Metastasis to liver [...] mouth in the morning. 0 Active Pancrelipase (Tia-Jfve-Xocf) 98724-32[address] UNIT Oral Capsule Delayed Release Particles (Creon 62234) 2 cap with meals, 1 with larger [...] -19) 10/16/2022 Coronary artery disease invo lving [place] coronary artery of [place] heart without angina pectoris 08/20/2022 Overview: Severe [...] WNL Factor V+heteroqygous. 04/10 colon-Dr Eller [facility] 2 polyps 1 tubular adenoma. Kevin 5y 2013 sleep study [facility] WNL [address] Elena [facility] Essential hypertension with goal blood pressure [...] WNL, antiphos lipids WNL Factor V+heteroqygous. FM AS-SIOG-FKAQR DIS NEC documented as of this encounter (statuses as of 01/11/2024) Immunizations Name Administration Dates Next Due COVID-19 mRNA, LNP-s, No Pre serve, 2-Dose Series ([employer]) 01/13/2022,07/21/2021,02/01/2021,01/04 COVID-19, MRNA-LNP, 23-24, P F, 30 MCG/0.3 mL, 12 YRS AND ABOVE, IM ([facility]) 09/12/2023 Covid-19, Mrna, Lnp-s, Pf, B ivalent, 30 Mcg, IM, 12 yrs and above ([employer]) 08/16/2022 HEP A - Hepatitis A (Adult [...] Description 01/20/2024 9:10 AM EST Laboratory Laboratory [facility] 200 [facility] [place] [address] [place], Lab [address] [facility] [place] [address] 01/21/2024 9:15 AM EST Hem/Onc Treatment Hematology/Oncology Treatment, [place] [address] [place] [address] Rehana, Chair 8 Hem Onc [address] [place] [address] 01/27/2024 11:00 AM EST Imaging Radiology [facility] 1st [facility], [place] 132 [facility] [address] 02/04/2024 8:45 AM EDT Office Visit Hematology/Oncology [facility] [place] [address] [place] [address] Dakota Armando MD [address] [place] [address] 07/20/2024 10:15 AM EDT Office Visit Dermatology [address] [place] [address] Cal Jernigan MD 200 [facility] [place], [place] [address] 07/21/2024 1:45 PM EDT Office Visit Hematology/Oncology [facility] 200 [facility] [place], [place] [address] Dakota Armando MD 200 [facility] [place], [place] [address] 07/24/2024 11:40 AM EDT Office Visit Family Practice [facility] [address] [facility] [place] [address] Sergio Barriga MD [address] [facility] [place] [address] Scheduled Procedures Name Priority Associated Diagnoses Date/Ti [...] this encounter Medical Devices Implanted Type Area Bar Host Device Identifier Shelf Expiration Date Model / Serial / Lot Duraclip 16mm Xlg Repostn - [id number] Implanted:Qty : 1 on 07/17/2021 by Guillermo Jones DO [place] [facility] [employer] [id number] 01/10/2024 [id number] / / [id number] Stent Viabil Biliary [id number] - [id number] Implanted:Qty : 1 on 07/17/2021 by Guillermo Jones DO at [place] [facility] [employer] [id number] 03/04/2024 [id number] / [id number] / [id number] Port Implant W/8f Poly Cath - [id number] Implanted:Qty : 1 on 09/13/2023 by Gary Rodriguez DO at OR [facility] Right: Chest CR BARD : PERIPHERAL VASCULAR [id number] 04/24/2025 [id number] / / [id number] documented as of this encounter Visit Diagnoses [...] File Type Date Recorded 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
--- OUTSIDE RECORDS SUMMARY | 2024-04-19 00:07 | External Medical Summary | Summary of Care ---
Author Name Unknown Organization [facility] Address [address] [place] [address] Phone [phone] Care Team Providers Care Collections Clerk Name Role Phone Sergio Barriga MD Primary [...] MG Dakota Armando MD [address] [place], [place] [address] Anc Hem/Onc [facility] DEPT CLOSED - 10/08/23 [address] [place] [address] Referral ID Status Reason Start Date Expiration Date V isits Requested Visits Authorized [id number] Authorized 08/30/2023 11/24/[phone] Encounter Details Date Type Department Care Team (Latest Contact Info) Description 11/08/2023 12:45 PM EST Immunization/ Injection Hematology/Oncology Treatment, [place] [address] [place] [address] Nurse, Med 4 [address] [place] [address] Encounter for antineoplastic chemotherapy*; Metastasis to liver [...] mouth in the morning. 0 Active Pancrelipase (Cgu-Dbgm-Dllb) 67263-46239 UNIT Oral Capsule Delayed Release Particles (Creon 78100) 2 cap with meals, 1 with larger [...] -19) 10/16/2022 Coronary artery disease invo lving [place] coronary artery of [place] heart without angina pectoris 08/20/2022 Overview: Severe [...] WNL, antiphos lipids WNL Factor V+heteroqygous. FM PJ-IUGF-PBAYS DIS NEC documented as of this encounter (statuses as of 01/11/2024) Immunizations Name Administration Dates Next Due COVID-19 mRNA, LNP-s, No Pre serve, 2-Dose Series ([employer]) 01/13/2022,07/21/2021,02/01/2021,01/04 COVID-19, MRNA-LNP, 23-24, P F, 30 MCG/0.3 mL, 12 YRS AND ABOVE, IM ([employer]) 09/12/2023 Covid-19, Mrna, Lnp-s, Pf, B ivalent, 30 Mcg, IM, 12 yrs and above ([employer]) 08/16/2022 HEP A - Hepatitis A (Adult [...] Description 01/20/2024 9:10 AM EST Laboratory Laboratory [facility] 200 [facility] [place] [id number] [place], Lab [address] [place] [address] 01/21/2024 9:15 AM EST Hem/Onc Treatment Hematology/Oncology Treatment, [place] [address] [facility] [address] [place] [address] Rehana, Chair 8 Hem Onc [address] [place] [address] 01/27/2024 11:00 AM EST Imaging Radiology [address], [place] 132 [facility] [place] [address] 02/04/2024 8:45 AM EDT Office Visit Hematology/Oncology [facility] [place] [address] [address] [place] [address] Dakota Armando MD 200 [facility] [place] [address] 07/20/2024 10:15 AM EDT Office Visit Dermatology [facility] [place] 200 [facility] [place] [address] Cal Jernigan MD 200 [facility] [place] [address] 07/21/2024 1:45 PM EDT Office Visit Hematology/Oncology [facility] 200 [facility] [place], [place] [address] Dakota Armando MD 200 [facility] [place] [address] 07/24/2024 11:40 AM EDT Office Visit Family [facility] [address] [place] [address] Sergio Barriga MD [address] [place] [address] Scheduled Procedures Name Priority Associated Diagnoses Date/Ti [...] this encounter Medical Devices Implanted Type Area Bullard Machine Operator Device Identifier Shelf Expiration Date Model / Serial / Lot Duraclip 16mm Xlg Repostn - [id number] Implanted:Qty : 1 on 07/17/2021 by Guillermo Jones DO at ENDOSCOPY [facility] [employer] [id number] 01/10/2024 [id number] / / [id number] Stent Viabil Biliary [id number] - [id number] Implanted:Qty : 1 on 07/17/2021 by Guillermo Jones DO at ENDOSCOPY [facility] [employer] [id number] 03/04/2024 [id number] / [id number] / [id number] Port Implant W/8f Poly Cath - [id number] Implanted:Qty : 1 on 09/13/2023 by Gary Rodriguez DO at OR [facility] Right: Chest CR BARD : PERIPHERAL VASCULAR [id number] 04/24/2025 [id number] / / [id number] documented as of this encounter Visit Diagnoses [...] Documents on File Type Date Recorded Patient Tile Classifier Expl anation Advance Directives and Living Will 10/23/2022 4:43 PM Virginie Rollins .PDF Latest Code Status on File Code Status Date Activated Date Inactivated Comments Full Code 07/16/2021 10:04 AM 07/18/2021 6:28 PM This order reflects the patients wishes and were consensually agreed upon. Healthcare Agents on File Name Relationship Healthcare Agent Relationship Communication Virginie Crmaer Spouse Health Care Agen t (per Health Care Power of Switchgear Repairer document) [email or web address] Temo Cramer Sibling First Alternate Health Care Agent (per Health Care Power of Switchgear Repairer document) Care Teams Collections Clerk Relationship Specialty Start Date End Date Sergio Barriga MD [address] [place] [address] PCP - General Family Medicine 08/07/19 documented as of this encounter
--- OUTSIDE RECORDS SUMMARY | 2024-04-19 00:07 | External Medical Summary | Summary of Care ---
Author Name Unknown Organization [facility] Address [address] [place] [address] Phone [phone] Care Team Providers Care Epic Professional Name Role Phone Sergio Barriga MD Primary [...] MG Dakota Armando MD [address] [place], [place] [address] Anc Hem/Onc [facility] DEPT CLOSED - 10/08/23 [address] [place] [address] Referral ID Status Reason Start Date Expiration Date V isits Requested Visits Authorized [id number] Authorized 08/30/2023 11/24/2099 999 99 Encounter Details Date Type Department Care Team (Latest Contact Info) Description 01/10/2024 11:30 AM EST Immunization/ Injection Hematology/Oncology Treatment, [place] [address] [place] [address] Nurse, Med 4 [address] [place] [address] Encounter for antineoplastic chemotherapy*; 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); 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) Allergies Active Allergy Reactions Criticality Noted Date Comments Lisinopril Cough Low 08/07/2019 documented as of this encounter (statuses as of 01/10/2024) Medications Medication Sig Dispensed Refills Start Date End Date Status Boost 100 Calorie Smart Oral Liquid Take by mouth. 0 Act miley Multi Vitamin Daily Oral Tablet Take by mouth. 0 Act miley Aspirin 81 MG Oral Tablet Delayed Release Take 1 Tablet by mouth in the morning. 0 Active Pancrelipase (Jln-Zpif-Gvwf) 49681-19722 UNIT Oral Capsule Delayed Release Particles (Creon 51967) 2 cap with meals, 1 with larger [...] as of this encounter (statuses as of 01/10/2024) Active Problems Problem Noted Date Diagnosed Date Malignant neoplasm of body of pancreas Metastasis to liver 08/30/2023 Encounter for antineoplastic chemotherapy 2022 History of carcinoma of pancreas 07/18/2023 Post-viral cough syndrome 07/09/2023 Upper airway cough syndrome 07/09/2023 History of 2019 novel coronavirus disease (COVID -19) 10/16/2022 Coronary artery disease invo lving [place] coronary artery of [place] heart without angina pectoris 08/20/2022 Overview: Severe [...] as of this encounter (statuses as of 01/10/2024) Resolved Problems Problem Noted Date Diagnosed Date [...] WNL, antiphos lipids WNL Factor V+heteroqygous. FM KW-UPHL-XCXSW DIS NEC documented as of this encounter (statuses as of 01/10/2024) Immunizations Name Administration Dates Next Due COVID-19 mRNA, LNP-s, No Pre serve, 2-Dose Series ([facility]) 01/13/2022,07/21/2021,02/01/2021,01/04 COVID-19, MRNA-LNP, 23-24, P F, 30 MCG/0.3 mL, 12 YRS AND ABOVE, IM ([facility]) 09/12/2023 Covid-19, Mrna, Lnp-s, Pf, B ivalent, 30 Mcg, IM, 12 yrs and above ([facility]) 08/16/2022 HEP A - Hepatitis A (Adult [...] of this encounter Nursing Notes * Nereyda Xioa LPN - 01/10/2024 12:50 PM EST 1130: Pt arrived for Udencya injection. Administered in RACHELL. Pt tolerated well. Discharged in stable condition. documented in this encounter Plan of Treatment Upcoming Encounters Date Type Department Care Team (Late st Contact Info) Description 01/20/2024 9:10 AM EST Laboratory Laboratory [facility] [place] [address] [place] [address] [place] Lab [facility] [address] [place], [place] [address] 01/21/2024 9:15 AM EST Hem/Onc Treatment Hematology/Oncology Treatment, [place] [address] [place], [place] [address] Rehana, Chair 8 Hem Onc [facility] [address] [place], [place] [address] 01/27/2024 11:00 AM EST Imaging Radiology [facility] 1st [facility] 132 [facility] [address] 02/04/2024 8:45 AM EDT Office Visit Hematology/Oncology [facility] [place] [address] [place] [address] Dakota Armando MD [address] [place], [place] [address] 07/20/2024 10:15 AM EDT Office Visit Dermatology [facility] [place] [address] [place], [place] [address] Cal Jernigan MD [address] [place], [place] [address] 07/21/2024 1:45 PM EDT Office Visit Hematology/Oncology [facility] [address] [place], [place] [address] Dakota Armando MD [address] [place], [place] [address] 07/24/2024 11:40 AM EDT Office Visit Family Practice [facility] 132 [facility] [place] [address] Sergio Barriga MD 132 [facility] [place] [address] Scheduled Procedures Name Priority Associated Diagnoses Date/Ti [...] this encounter Medical Devices Implanted Type Area Skills Trainer Device Identifier Shelf Expiration Date Model / Serial / Lot Duraclip 16mm Xlg Repostn - [id number] Implanted:Qty : 1 on 07/17/2021 by Guillremo Jones DO at ENDOSCOPY [facility] [employer] REYNALDO [id number] 01/10/2024 [id number] / / [id number] Stent Viabil Biliary 05bgh7bg - [id number] Implanted:Qty : 1 on 07/17/2021 by Guillermo Jones DO at ENDOSCOPY [facility] [employer] REYNALDO [id number] 03/04/2024 [id number] / [id number] / [id number] Port Implant W/8f Poly Cath - [id number] Implanted:Qty : 1 on 09/13/2023 by Gary Rodriguez, at OR [facility] Right: Chest CR BARD : PERIPHERAL VASCULAR [id number] 04/24/2025 [id number] / / [id number] documented as of this encounter Visit Diagnoses [...] on File Type Date Recorded Patient Qa Reviewer Expl anation Advance Directives and Living Will [...] Agen t (per Health Care Power of Checkroom Attendant document) [email or web address] Temo Cramer Sibling First Alternate Health Care Agent (per Health Care Power of Checkroom Attendant document) Care Teams Epic Professional Relationship Specialty Start Date End Date Sergio Barriga MD [address] [place] [address] PCP - General Family Medicine 08/07/19 documented as of this encounter
--- OUTSIDE RECORDS SUMMARY | 2024-04-19 00:07 | External Medical Summary | Summary of Care ---
Author Name Unknown Organization [facility] Address [address] [place] [address] Phone [phone] Care Team Providers Care Elevator Constructor Electric Name Role Phone Sergio Barriga MD Primary Care Provider + Reason for Visit * Reason Comments Treatment * Episode Based Medications (Routine) - Authorized Specialty Diagnoses / Procedures Referred By Contlexii hu Referred To Contact Diagnoses Encounter for antineoplastic chemotherapy 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) 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) Procedures TN LEUCOVORIN CALCIUM INJECTION TN FLUOROURACIL INJECTION TN IRINOTECAN INJECTION TN OXALIPLATIN TN FOSAPREPITANT INJECTION BEVACIZUMAB-BVZR, BIOSIMILAR, 10 MG (ZIRABEV), IV TN INJECTION, UDENYCA 0.5 MG Dakota Armando MD [address] [place], [place] [address] Anc Hem/Onc Scene[place] Kimball DEPT CLOSED - 10/08/23 [address] [place] [address] Referral ID Status Reason Start Date Expiration Date V isits Requested Visits Authorized [id number] Authorized 08/30/2023 11/24/2099 999 99 Encounter Details Date Type Department Care Team (Latest Contact Info) Description 11/05/2023 9:00 AM EST Hem/Onc Treatment Hematology/Oncolog y Treatment, [place] [address] [place] [address] Rehana, Chair 7 Hem Onc [address] [place] [address] Encounter for antineoplastic chemotherapy*; Metastasis to liver [...] mouth in the morning. 0 Active Pancrelipase (Nbk-Ibpr-Rgba) 98013-[address]45 UNIT Oral Capsule Delayed Release Particles (Creon 66651) 2 cap with meals, 1 with larger [...] lipids WNL Factor V+heteroqygous. 04/10 colon-Dr Eller [facility] 2 polyps 1 tubular adenoma. Kevin 6y 2013 sleep study [facility] WNL [address] [facility] [...] WNL, antiphos lipids WNL Factor V+heteroqygous. FM JV-KGJT-KIOZB DIS NEC documented as of this encounter (statuses as of 01/11/2024) Immunizations Name Administration Dates Next Due COVID-19 mRNA, LNP-s, No Pre serve, 2-Dose Series ([employer]) 01/13/2022,07/21/2021,02/01/2021,01/04 COVID-19, MRNA-LNP, 23-24, P F, 30 MCG/0.3 mL, 12 YRS AND ABOVE, IM ([facility]) 09/12/2023 Covid-19, Mrna, Lnp-s, Pf, B ivalent, 30 Mcg, IM, 12 yrs and above ([employer]) 08/16/2022 HEP A - Hepatitis A [...] Description 01/20/2024 9:10 AM EST Laboratory Laboratory [facility] 200 [facility] [place] [address] [place], Lab [address] [facility] [place] [address] 01/21/2024 9:15 AM EST Hem/Onc Treatment Hematology/Oncology Treatment, [place] [address] [place] [address] Rehana, Chair 8 Hem Onc [address] [place] [address] 01/27/2024 11:00 AM EST Imaging Radiology [facility] 1st [facility] [place] 132 [facility] [address] 02/04/2024 8:45 AM EDT Office Visit Hematology/Oncology [facility] [place] [address] [place] [address] Dakota Armadno MD [address] [place] [address] 07/20/2024 10:15 AM EDT Office Visit Dermatology [address] [place] [address] Cal Jernigan MD 200 [facility] [place], [place] [address] 07/21/2024 1:45 PM EDT Office Visit Hematology/Oncology [facility] 200 [facility] [place], [place] [address] Dakota Armando MD 200 [facility] [place], [place] [address] 07/24/2024 11:40 AM EDT Office Visit Family Practice [facility] [address] [facility] [place] [address] Sergio Barriga MD [address] [facility] [place] [address] Scheduled Procedures Name Priority Associated Diagnoses Date/Ti [...] this encounter Medical Devices Implanted Type Area Basic Acoustic Analyst Device Identifier Shelf Expiration Date Model / Serial / Lot Duraclip 16mm Xlg Repostn - [id number] Implanted:Qty : 1 on 07/17/2021 by Guillermo Jones DO at [facility] [employer] REYNALDO [id number] 01/10/2024 [id number] / / [id number] Stent Viabil Biliary [id number] - [id number] Implanted:Qty : 1 on 07/17/2021 by Guillermo Jones DO at [facility] [employer] REYNALDO [id number] 03/04/2024 [id number] / [id number] / [id number] Port Implant W/8f Poly Cath - [id number] Implanted:Qty : 1 on 09/13/2023 by Gary Rodriguez DO at OR [facility] Right: Chest CR BARD : PERIPHERAL VASCULAR [id number] 04/24/2025 [id number] / / [id number] documented as of this encounter Visit Diagnoses [...] Documents on File Type Date Recorded 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
--- OUTSIDE RECORDS SUMMARY | 2024-04-19 00:07 | External Medical Summary | Summary of Care ---
Author Name Unknown Organization [facility] Address [address] [place] [address] Phone [phone] Care Team Providers Care Cloud Automation Tester Name Role Phone Sergio Barriga MD [...] 0.5 MG Dakota Armando MD [address] [place], [place] [address] Anc Hem/Onc Scene[place]aine Kimball DEPT CLOSED - 10/08/23 [address] [place] [address] Referral ID Status Reason Start Date Expiration Date V isits Requested Visits Authorized [id number] Authorized 08/30/2023 11/24/2099 999 99 Encounter Details Date Type Department Care Team (Latest Contact Info) Description 11/05/2023 9:00 AM EST Hem/Onc Treatment Hematology/Oncolog y Treatment, [place] [address] [place] [address] Rehana, Chair 7 Hem Onc [address] [place] [address] Encounter for antineoplastic chemotherapy*; Metastasis to liver [...] mouth in the morning. 0 Active Pancrelipase (Yky-Faoh-Ezub) 652[address] UNIT Oral Capsule Delayed Release Particles (Creon 02250) 2 cap with meals, 1 with larger [...] -19) 10/16/2022 Coronary artery disease invo lving [place] coronary artery of [place] heart without angina pectoris 08/20/2022 Overview: Severe [...] Factor V+heteroqygous. 04/10 colon-Dr Eller [facility] 2 polyps 1 tubular adenoma. Kevin 6y 2013 sleep study [facility] WNL [address] Elena [facility] Essential hypertension with goal blood pressure less [...] WNL, antiphos lipids WNL Factor V+heteroqygous. FM KF-MAOT-BBENX DIS NEC documented as of this encounter (statuses as of 01/11/2024) Immunizations Name Administration Dates Next Due COVID-19 mRNA, LNP-s, No Pre serve, 2-Dose Series ([employer]) 01/13/2022,07/21/2021,02/01/2021,01/04 COVID-19, MRNA-LNP, 23-24, P F, 30 MCG/0.3 mL, 12 YRS AND ABOVE, [facility] ([facility] 09/12/2023 Covid-19, Mrna, Lnp-s, Pf, B ivalent, 30 Mcg, IM, 12 yrs and above ([employer]) 08/16/2022 HEP A - Hepatitis A (Adult [...] Description 01/20/2024 9:10 AM EST Laboratory Laboratory [facility] 200 [facility] [place] [address] [place], Lab [address] [facility] [place] [address] 01/21/2024 9:15 AM EST Hem/Onc Treatment Hematology/Oncology Treatment, [place] [address] [place] [address] Rehana, Chair 8 Hem Onc [address] [place] [address] 01/27/2024 11:00 AM EST Imaging Radiology [facility] 1st [facility], [place] 132 [facility] [address] 02/04/2024 8:45 AM EDT Office Visit Hematology/Oncology [facility] [place] [address] [place] [address] Dakota Armando MD [address] [place] [address] 07/20/2024 10:15 AM EDT Office Visit [address]ermatology [address] [place] [address] Cal Jernigan MD 200 [facility] [place], [place] [address] 07/21/2024 1:45 PM EDT Office Visit Hematology/Oncology [facility] 200 [facility] [place], [place] [address] Dakota Armando MD 200 [facility] [place], [place] [address] 07/24/2024 11:40 AM EDT Office Visit Family Practice [facility] [address] [facility] [place] [address] Sergio Barriga MD [address] [facility] [place] [address] Scheduled Procedures Name Priority Associated Diagnoses Date/Ti [...] this encounter Medical Devices Implanted Type Area Chair Mender Device Identifier Shelf Expiration Date Model / Serial / Lot Duraclip 16mm Xlg Repostn - [id number] Implanted:Qty : 1 on 07/17/2021 by Guillermo Jones DO [place] [facility] o[employer] IncMED REYNALDO [id number] 01/10/2024 [id number] / / [id number] Stent Viabil Biliary [id number] - [id number] Implanted:Qty : 1 on 07/17/2021 by Guillermo Jones DO [place] [facility] [employer] REYNALDO [id number] 03/04/2024 [id number] / [id number] / [id number] Port Implant W/8f Poly Cath - [id number] Implanted:Qty : 1 on 09/13/2023 by Gary Rodriguez DO at OR [facility] Right: Chest CR BARD : PERIPHERAL VASCULAR [id number] 04/24/2025 [id number] / / [id number] documented as of this encounter Visit Diagnoses [...] Documents on File Type Date Recorded Patient Woods Boss Expl anation Advance Directives and Living Will [...] t (per Health Care Power of Concrete Layer document) [email or web address] Temo Bela Sibling First Alternate Health Care Agent (per Health Care Power of Concrete Layer document) [email or web address] Care [email or web address] Cloud Automation Tester Relationship Specialty Start Date End Date Sergio Barriga MD [address] [place] [address] PCP - General Family Medicine 08/07/19 documented as of this encounter
--- OUTSIDE RECORDS SUMMARY | 2024-04-19 00:07 | External Medical Summary | Summary of Care ---
Author Name Unknown Organization [facility] Address [address] [place] [address] Phone [phone] Care Team Providers Care Telecommunications Network Planner Name Role Phone Sergio Barriga MD Primary [...] (ZIRABEV), IV ID INJECTION, UDENYCA 0.5 MG Dakota Armando MD [address] [place], [place] [address] Anc Hem/Onc Scene[place] Kim[place] DEPT CLOSED - 10/08/23 [address] [place] [address] Referral ID Status Reason Start Date Expiration Date V isits Requested Visits Authorized [id number] Authorized 08/30/2023 11/24/2099 999 99 Encounter Details Date Type Department Care Team (Latest Contact Info) Description 11/05/2023 9:00 AM EST Hem/Onc Treatment Hematology/Oncolog y Treatment, [place] [address] [place] [address] Rehana, Chair 7 Hem Onc Scenery [address] [place] [address] Encounter for antineoplastic chemotherapy*; Metastasis to liver [...] mouth in the morning. 0 Active Pancrelipase (Kay-Ypln-Udvi) 49434-24934 UNIT Oral Capsule Delayed Release Particles (Creon 71226) 2 cap with meals, 1 with larger [...] -19) 10/16/2022 Coronary artery disease invo lving [place] coronary artery of [place] heart without angina pectoris 08/20/2022 Overview: Severe [...] Factor V+heteroqygous. 04/10 colon-Dr Eller [facility] 2 polyps 1 tubular adenoma. Kevin 5y 2013 sleep study [facility] WNL [address] Elena [facility] [...] WNL, antiphos lipids WNL Factor V+heteroqygous. FM UL-SDIF-RCYNI DIS NEC documented as of this encounter (statuses as of 01/11/2024) Immunizations Name Administration Dates Next Due COVID-19 mRNA, LNP-s, No Pre serve, 2-Dose Series (Arria NLG) 01/13/2022,07/21/2021,02/01/2021,01/04 COVID-19, MRNA-LNP, 23-24, P F, 30 MCG/0.3 mL, 12 YRS AND ABOVE, IM ([facility]) 09/12/2023 Covid-19, Mrna, Lnp-s, Pf, B ivalent, 30 Mcg, IM, 12 yrs and above (Arria NLG) 08/16/2022 HEP A - Hepatitis A (Adult [...] 01/20/2024 9:10 AM EST Laboratory Laboratory [facility] 200 [facility] [place] [id number] [place], Lab [address] [facility] [place] [address] 01/21/2024 9:15 AM EST Hem/Onc Treatment Hematology/Oncology Treatment, [place] [address] [place] [address] Rehana, Chair 8 Hem Onc [address] [place] [address] 01/27/2024 11:00 AM EST Imaging Radiology [facility] [address] [facility], [place] [facility] [address] 02/04/2024 8:45 AM EDT Office Visit Hematology/Oncology [facility] [place] [address] [place] [address] [address] Dakota Armando MD [address] [place] [address] 07/20/2024 10:15 AM EDT Office Visit Dermatology [address] [place] [address] Cal Jernigan MD 200 [facility] [place], [place] [address] 07/21/2024 1:45 PM EDT Office Visit Hematology/Oncology [facility] 200 [facility] [place], [place] [address] Dakota Armando MD 200 [facility] [place], [place] [address] 07/24/2024 11:40 AM EDT Office Visit Family Practice [facility] [address] [facility] [place] [address] Sergio Barriga MD [address] [facility] [place] [address] Scheduled Procedures Name Priority Associated Diagnoses Date/Ti [...] this encounter Medical Devices Implanted Type Area Kitchenhand Device Identifier Shelf Expiration Date Model / Serial / Lot Duraclip 16mm Xlg Repostn - [id number] Implanted:Qty : 1 on 07/17/2021 by Guillermo Jones DO [place] [facility] [email or web address] [place] [id number] 01/10/2024 [id number] / / [id number] Stent Viabil Biliary [id number] - [id number] Implanted:Qty : 1 on 07/17/2021 by Guillermo Jones DO at [facility] [facility] [email or web address] RE[place] [id number] 03/04/2024 [id number] / [id number] / [id number] Port Implant W/8f Poly Cath - [id number] Implanted:Qty : 1 on 09/13/2023 by Gary Rodriguez DO at OR [facility] Right: Chest CR BARD : PERIPHERAL VASCULAR [id number] 04/24/2025 [id number] / / [id number] documented as of this encounter Visit Diagnoses [...] Documents on File Type Date Recorded Patient Order Taker Expl anation Advance Directives and Living Will [...] Agen t (per Health Care Power of Foam Rubber Mixer document) [email or web address] [email or web address] Bela Sibling First Alternate Health Care Agent (per Health Care Power of Foam Rubber Mixer document) [email or web address] Care Teams Telecommunications Network Planner Relationship Specialty Start Date End Date Sergio Barriga MD [address] [place] [address] PCP - General Family Medicine 08/07/19 documented as of this encounter
--- OUTSIDE RECORDS SUMMARY | 2024-04-19 00:08 | External Medical Summary | Summary of Care ---
Author Name Unknown Organization [facility] Address [address] [place] [address] Phone [phone] Care Team Providers Care Ed Teacher Name Role Phone Sergio Barriga MD Primary Care Provider + Reason for Visit * Reason Comments Chemotherapy C7/D1 - FOLFIRINOX * Episode Based Medications (Routine) - Authorized Specialty Diagnoses / Procedures Referred By Linda hu Referred To Contact Diagnoses Encounter for antineoplastic chemotherapy 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) 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) Procedures AL LEUCOVORIN CALCIUM INJECTION AL FLUOROURACIL INJECTION AL IRINOTECAN INJECTION AL OXALIPLATIN AL FOSAPREPITANT INJECTION BEVACIZUMAB-BVZR, BIOSIMILAR, 10 MG (ZIRABEV), IV AL INJECTION, UDENYCA 0.5 MG Dakota Armando MD [address] [place], [place] [address] Anc Hem/Onc Scenery Rehana DEPT CLOSED - 10/08/23 [address] [place], [place] [address] Referral ID Status Reason Start Date Expiration Date V isits Requested Visits Authorized [id number] Authorized 08/30/2023 11/24/2099 999 99 Encounter Details Date Type Department Care Team (Latest Contact Info) Description 01/07/2024 8:30 AM EST Hem/Onc Treatment Hematology/Oncolog y Treatment, [place] [address] [place] [address] Rehana, Chair 7 Hem Onc Scenery [address] [place] [address] 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)*; Encounter for antineoplastic chemotherapy; 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) Allergies Active Allergy Reactions Criticality Noted Date Comments Lisinopril Cough Low 08/07/2019 documented as of this encounter (statuses as of 01/07/2024) Medications Medication Sig Dispensed Refills Start Date End Date Status Boost 100 Calorie Smart Oral Liquid Take by mouth. 0 Act miley Multi Vitamin Daily Oral Tablet Take by mouth. 0 Act miley Aspirin 81 MG Oral Tablet Delayed Release Take 1 Tablet by mouth in the morning. 0 Active Pancrelipase (Nep-Ntow-Gbkl) 29918-72219 UNIT Oral Capsule Delayed Release Particles (Creon 03472) 2 cap with meals, 1 with larger [...] as of this encounter (statuses as of 01/07/2024) Active Problems Problem Noted Date Diagnosed Date Malignant neoplasm of body of pancreas Metastasis to liver 08/30/2023 Encounter for antineoplastic chemotherapy 2022 History of carcinoma of pancreas 07/18/2023 Post-viral cough syndrome 07/09/2023 Upper airway cough syndrome 07/09/2023 History of 2019 novel coronavirus disease (COVID -19) 10/16/2022 Coronary artery disease invo lving [place] coronary artery of [place] heart without angina pectoris 08/20/2022 Overview: Severe [...] as of this encounter (statuses as of 01/07/2024) Resolved Problems Problem Noted Date Diagnosed Date [...] WNL, antiphos lipids WNL Factor V+heteroqygous. FM GI-HDAO-BRXVM DIS NEC documented as of this encounter (statuses as of 01/07/2024) Immunizations Name Administration Dates Next Due COVID-19 mRNA, LNP-s, No Pre serve, 2-Dose Series ([employer]) 01/13/2022,07/21/2021,02/01/2021,01/04 COVID-19, MRNA-LNP, 23-24, P F, 30 MCG/0.3 mL, 12 YRS AND ABOVE, IM ([facility] [facility]) 09/12/2023 Covid-19, Mrna, Lnp-s, Pf, B ivalent, 30 Mcg, IM, 12 yrs and above ([employer]) 08/16/2022 HEP A - Hepatitis A (Adult [...] Care Team (Late st Contact Info) Description 01/09/2024 11:30 AM EST Immunization/Injectio n Hematology/Oncology Treatment, [address], [place] [address] Nurse, Med 4 200 [facility] [place], [place] [address] 01/10/2024 11:30 AM EST Immunization/Injectio n Hematology/Oncology Treatment, [address] [place] [address] Nurse, Med 4 200 [place] [address] 01/20/2024 9:10 AM EST Laboratory Laboratory [facility] [place] 200 [place] [address] [place], Lab Scenery [address] [place] [address] [facility] [place], [place] [address] 01/21/2024 9:15 AM EST Hem/Onc Treatment Hematology/Oncology Treatment, [place] [address] [facility] [address] Rehana, Chair 8 Hem Onc [place] [address] [place] [address] 01/27/2024 11:00 AM EST Imaging Radiology [address] 132 [facility] [place] [address] 02/04/2024 8:45 AM EDT Office Visit Hematology/Oncology [facility] [address] [place] [address] Dakota Armando MD 200 [facility] [place] [address] 07/20/2024 10:15 AM EDT Office Visit Dermatology [facility] [address] [place] [address] Cal Jernigan MD 200 [facility] [place] [address] 07/21/2024 1:45 PM EDT Office Visit Hematology/Oncology [facility] [address] [place] [address] Dakota Armando MD 200 [facility] [place] [address] 07/24/2024 11:40 AM EDT Office Visit Family Practice [facility] 132 [facility] [place] [address] Sergio Barriga MD 132 [facility] [place] [address] Scheduled Orders Name Type Priority Associated Diagnoses Orde r Schedule CA 19-9 Lab STAT 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) Every Month for 4 Occurrences starting 01/07/2024 until 01/07/2025 Scheduled Procedures Name Priority Associated Diagnoses Date/Ti [...] this encounter Medical Devices Implanted Type Area Transit Bus Operator Device Identifier Shelf Expiration Date Model / Serial / Lot Stent Viabil Biliary [id number] - [id number] Implanted:Qty : 1 on 07/17/2021 [place] Guillermo Jones [place] [facility] [employer] [place] [id number] 03/04/2024 [id number] / [id number] / [id number] Port Implant W/8f Poly Cath - [id number] Implanted:Qty : 1 on 09/13/2023 by Gary Rodriguez DO at [facility] Right: Chest CR BARD : PERIPHERAL VASCULAR [id number] 04/24/2025 [id number] / / [id number] documented as of this encounter Visit Diagnoses [...] on Sat01/07/24 at 0930, Until Sat01/07/24 at 1929 Start Infusion 01/07/2024 8:45 AM EST 500 mL 50 mL/hr diphenhydrAMINE (Benadryl) inj 50 mg 50 mg, IV Push, ONCE PRN Other, Hypersensitivity Reaction, Starting on Sat01/07/24 at 0849, Until Sat01/08/24 at 0848, For 24 hours EPINEPHrine 1 MG/ML inj 0.3 mg 0.3 mg, Intramuscular, ONCE PRN Other, Hypersensitivity Reaction or Anaphylaxis, Starting on Sat01/07/24 at 0849, Until Sat01/08/24 at 0848, For 24 hours hEParin 100 UNIT/ML Lock Flush inj 500 Units 500 Units (5 mL), IV Lock, PRN Other, IV Flush, Starting on Sat01/07/24 at 0849, Until Sat01/08/24 at 0848, For 24 hours, Do not flush if lock, PICC, or central line not in place; IV infusing or unable to flush. Hydrocortisone Sod Suc (PF) (Solu-Cortef) inj 100 mg 100 mg, IV Push, ONCE PRN Other, Hypersensitivity Reaction, Starting on Sat01/07/24 at 0849, Until Sat01/08/24 at 0848, For 24 hours oxygen GAS Inhalation, OXYGEN, First dose on Sat01/07/24 at 0930, Until Discontinued, Device/Managed by: Low Flow Device, [...] Flush, Starting on Sat01/07/24 at 0849, Until Sat01/08/24 at 0848, For 24 hours, Do not flush if lock, PICC, or central line not in place; IV infusing or unable to flush. Given 01/07/2024 1:18 PM EST 10 mL Inactive Administered Medications - up to 3 most recent administrations Medication Order MAR Action Action Date Dose Rate Site Atropine sulfate inj 0.4 mg 0.4 mg, IV Push, ONCE, On Sat01/07/24 at 0930, For 1 dose, Give before CPT-11 Given 01/07/2024 11:41 AM EST 0.4 mg Fluorouracil (5-Fu) 4,300 mg [...] 9:35 AM EST 150 mg 250 mL/hr documented in this encounter Advance Directives Documents on File Type Date Recorded Patient Cena Expl anation Advance Directives and Living Will 10/23/2022 4:43 PM Virginie Hollariel Cramer KarlLibhartLivingWill .PDF Latest Code Status on File Code Status Date Activated Date Inactivated Comments Full Code 07/16/2021 10:04 AM 07/18/2021 6:28 PM This order reflects the patients wishes and were consensually agreed upon. Healthcare Agents on File Name Relationship Healthcare Agent Relationship Communication Virginie Cramer Spouse Health Care Agen t (per Health Care Power of Flanger document) [email or web address] Temo Bela Sibling First Alternate Health Care Agent (per Health Care Power of Flanger document) [email or web address] Care Teams Ed Teacher Relationship Specialty Start Date End Date Sergio Barriga MD [address] [place] [address] PCP - General Family Medicine 08/07/19 documented as of this encounter
--- OUTSIDE RECORDS SUMMARY | 2024-04-19 00:08 | External Medical Summary | Summary of Care ---
Author Name Unknown Organization [facility] Address [address] [place] [address] Phone [phone] Care Team Providers Care Recording Studio Setup Worker Name Role Phone Sergio Barriga MD [...] MG Dakota Armando MD [address] [place], [place] [address] Anc Hem/Onc Sharif Kim[place] DEPT CLOSED - 10/08/23 [address] [place] [address] Referral ID Status Reason Start Date Expiration Date V isits Requested Visits Authorized [id number] Authorized 08/30/2023 11/24/2099 999 99 Encounter Details Date Type Department Care Team (Latest Contact Info) Description 01/09/2024 11:30 AM EST Immunization/ Injection Hematology/Oncology Treatment, [place] [address] [place] [address] Nurse, Med 4 [address] [place] [address] Encounter for antineoplastic chemotherapy*; 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); 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 0 Act miley Multi Vitamin Daily Oral Tablet Take by mouth. 0 Act miley Aspirin 81 MG Oral Tablet Delayed Release Take 1 Tablet by mouth in the morning. 0 Active Pancrelipase (Cqq-Wcpo-Xkzf) 31516-[address] UNIT Oral Capsule Delayed Release Particles (Creon 02995) 2 cap with meals, 1 with larger [...] as of this encounter (statuses as of 01/09/2024) Active Problems Problem Noted Date Diagnosed Date Malignant neoplasm of body of pancreas Metastasis to liver 08/30/2023 Encounter for antineoplastic chemotherapy 2022 History of carcinoma of pancreas 07/18/2023 Post-viral cough syndrome 07/09/2023 Upper airway cough syndrome 07/09/2023 History of 2019 novel coronavirus disease (COVID -19) 10/16/2022 Coronary artery disease invo lving [place] coronary artery of [place] heart without angina pectoris 08/20/2022 Overview: Severe [...] WNL Factor V+heteroqygous. 04/10 colon-[address] Case [facility] 2 polyps 1 tubular adenoma. Kevin 6y [address] [facility] WNL [address] [facility] [...] as of this encounter (statuses as of 01/09/2024) Resolved Problems Problem Noted Date Diagnosed Date [...] WNL, antiphos lipids WNL Factor V+heteroqygous. FM ET-DCAE-MRWJR DIS NEC documented as of this encounter (statuses as of 01/09/2024) Immunizations Name Administration Dates Next Due COVID-19 mRNA, LNP-s, No Pre serve, 2-Dose Series (Planex) 01/13/2022,07/21/2021,02/01/2021,01/04 COVID-19, MRNA-LNP, 23-24, P F, 30 MCG/0.3 mL, 12 YRS AND ABOVE, IM ([facility]) 09/12/2023 Covid-19, Mrna, Lnp-s, Pf, B ivalent, 30 Mcg, IM, 12 yrs and above (Planex) 08/16/2022 HEP A - Hepatitis A (Adult [...] Nursing Notes * Krysten Valencia RN - 01/09/2024 11:43 AM EST Chair [...] Care Team (Late st Contact Info) Description 01/10/2024 11:30 AM EST Immunization/Injectio n Hematology/Oncology Treatment, [place] [address] [place], [place] [address] Nurse, Med 4 [address] [place], [place] [address] 01/20/2024 9:10 AM EST Laboratory Laboratory [facility] [address] [place] [id number] [place], Lab Scenery [address] [facility] [place], [place] [address] 01/21/2024 9:15 AM EST Hem/Onc Treatment Hematology/Oncology Treatment, [place] 200 [facility], [place] [address] Rehana, Chair 8 Hem Onc [facility] [address] [place] [address] 01/27/2024 11:00 AM EST Imaging Radiology [facility] 1st [facility], [place] [facility] [address] 02/04/2024 8:45 AM EDT Office Visit Hematology/Oncology [facility] [address] [place] [address] Dakota Armando MD [address] [place], [place] [address] 07/20/2024 10:15 AM EDT Office Visit Dermatology [facility] [place] [address] [place], [place] [address] Cal Jernigan MD [address] [place], [place] [address] 07/21/2024 1:45 PM EDT Office Visit Hematology/Oncology [facility] [address] [place], [place] [address] Dakota Aramndo MD [address] [place], [place] [address] 07/24/2024 11:40 AM EDT Office Visit Family Practice [facility] [address] [place] [address] Sergio Barriga MD [address] [place] [address] Scheduled Procedures Name Priority Associated Diagnoses Date/Ti [...] this encounter Medical Devices Implanted Type Area Foil Operator Device Identifier Shelf Expiration Date Model / Serial / Lot Stent Viabil Biliary [id number] - [id number] Implanted:Qty : 1 on 07/17/2021 by Guillermo Jones DO at ENDOSCOPY [facility] [employer] [id number] 03/04/2024 [id number] / [id number] / [id number] Port Implant W/8f Poly Cath - [id number] Implanted:Qty : 1 on 09/13/2023 by Gary Rodriguez DO at OR [facility] Right: Chest CR BARD : PERIPHERAL VASCULAR [id number] 04/24/2025 [id number] / / [id number] documented as of this encounter Visit Diagnoses [...] PRN Other, IV Flush, Starting on Marilia 01/09/24 at 1132, Until Sat01/10/24 at 1131, For 24 hours, Do not flush if lock, PICC, or central line not in place; IV infusing or unable to flush. Given 01/09/2024 11:35 AM EST 500 Units sodium chloride 0.9 % flush central line 10 mL 10 mL, IV Push, PRN Other, IV Flush, Starting on Marilia 01/09/24 at 1132, Until 01/10/24 at 1131, For 24 hours, Do not flush if lock, PICC, or central line not in place; IV infusing or unable to flush. Given 01/09/2024 11:34 AM EST 10 mL documented in this encounter Advance Directives Documents on File Type Date Recorded Patient Char Dust Cleaner And Salvager Expl anation Advance Directives and Living Will [...] Agen t (per Health Care Power of Control System Computer Scientist document) [email or web address] Temo Cramer Sibling First Alternate Health Care Agent (per Health Care Power of Control System Computer Scientist document) Care Teams Recording Studio Setup Worker Relationship Specialty Start Date End Date Sergio Barriga MD [address] [place] [address] PCP - General Family Medicine 08/07/19 documented as of this encounter
--- OUTSIDE RECORDS SUMMARY | 2024-04-19 00:08 | External Medical Summary | Summary of Care ---
Author Name Unknown Organization [facility] Address [address] [place] [address] Phone [phone] Care Team Providers Care Staff Interpreter Name Role Phone Sergio Walter MD Primary Care Provider + Reason for Visit * Reason Comments eRx-Medication Refill Encounter Details Date Type Department Care Team (Late st Contact Info) Description 12/26/2023 Refill Family Practice [facility] [address] [place] [address] Melva Swenson MD [address] [place] [address] Chronic insomnia Allergies Active Allergy Reactions Criticality Noted Date Comments Lisinopril Cough Low 08/07/2019 documented as of this encounter (statuses as of 12/27/2023) Medications Medication Sig Dispensed Refills Start Date End Date Status Boost 100 Calorie Smart Oral Liquid Take by mouth. 0 Active Multi Vitamin Daily Oral Tablet Take by mouth. 0 Active Aspirin 81 MG Oral Tablet Delayed Release Take 1 Tablet by mouth in the morning. 0 Active Pancrelipase (Rnq-Gtvg-Pzfp) 62341-46585 UNIT Oral Capsule Delayed Release Particles (Creon 92258) 2 cap with meals, 1 with larger [...] FOR SLEEP 30 Tablet 2 12/27/2023 Active ALPRAZolam 1 MG Oral Tablet (xaNAX)Indicati ons:Chronic insomnia TAKE ONE TABLET BY MOUTH AT BEDTIME NEEDED FOR SLEEP 30 Tablet 0 11/22/2023 4 Discontinued documented as of this encounter (statuses as of 12/27/2023) Active Problems Problem Noted Date Diagnosed Date Malignant neoplasm of body of pancreas 3 Metastasis to liver 08/30/2023 Encounter for antineoplastic chemotherapy 2022 History of carcinoma of pancreas 07/18/2023 Post-viral cough syndrome 07/09/2023 Upper airway cough syndrome 07/09/2023 History of 2019 novel coronavirus disease (COVID -19) 10/16/2022 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 04/10 colon-Dr Eller [facility] 2 polyps 1 tubular adenoma. Kevin 6y 2013 sleep study [facility] WNL [address] Elena [facility] [...] as of this encounter (statuses as of 12/27/2023) Resolved Problems Problem Noted Date Diagnosed Date [...] WNL, antiphos lipids WNL Factor V+heteroqygous. FM CZ-JDMB-ZHLKT DIS NEC documented as of this encounter (statuses as of 12/27/2023) Immunizations Name Administration Dates Next Due COVID-19 mRNA, LNP-s, No Pre serve, 2-Dose Series ([employer]) 01/13/2022,07/21/2021,02/01/2021,01/04 COVID-19, MRNA-LNP, 23-24, P F, 30 MCG/0.3 mL, 12 YRS AND ABOVE, IM ([facility]) 09/12/2023 Covid-19, Mrna, Lnp-s, Pf, [...] Telephone Encounter - Sergio Walter MD - 12/27/2023 5:32 PM ESTSigned Prescriptions: Disp Refills ALPRAZolam 1 MG Oral Tablet (xaNAX) 30 Tab*2 Sig: TAKE ONE TABLET BY MOUTH AT BEDTIME NEEDED FOR SLEEP Authorizing Provider: SERGIO WALTER * Telephone Encounter - Finn Marquez [facility] - 12/27/2023 12:56 PM ESTPending Prescriptions: Disp Refills ALPRAZolam 1 MG Oral Tablet [Pharmacy Med *30 Tab*0 Sig: TAKE ONE TABLET BY MOUTH AT BEDTIME NEEDED FOR SLEEP * Telephone Encounter - Finn Marquez [facility] - 12/27/2023 12:56 PM EST I have reviewed the patients controlled substance dispensing history in the Prescription Drug Monitoring Program in compliance with the [facility] regulations before prescribing a controlled substance. PDMP checked on 12/27/2023. Pending Prescriptions: Disp Refills ALPRAZolam 1 MG Oral Tablet (xaNAX) [Phar*30 Tab*0 Sig: TAKE ONE TABLET BY MOUTH AT BEDTIME NEEDED FOR SLEEP Last Visit: 07/18/2023 (in office), 07/18/2022 (telemedicine) Next Visit: 07/24/2024 Date medication was last filled: 11/22/23 Date medication is due for refill: 12/21/23 Pharmacy: [id number] Is this request for a controlled substance? Yes and Urine Drug Screen Not completed Toxicology results: No results found for this or any previous visit. Please approve if appropriate. Thank You, Finn Berman [facility] Clinical Pharmacist Centralized Clinical Pharmacy Services (CCPS) (formerly Telepharmacy) 12/27/2023, 12:56 PM documented in this encounter Plan of Treatment Upcoming Encounters Date Type Department Care Team (Late st Contact Info) Description 01/06/2024 9:00 AM EST Laboratory Laboratory [facility] [address] [place] [id number] Renee Kimball [address] [place] [address] 01/06/2024 10:45 AM EST Office Visit Dermatology [facility] Rehana [address] [place] [address] Cal Jernigan MD [address] [place] [address] [place] [address] 01/07/2024 8:30 AM EST Hem/Onc Treatment Hematology/Oncology Treatment, [address] [place] [address] Rehana, Chair 7 Hem Onc [facility] [address] [facility] [place] [address] 01/27/2024 11:00 AM EST Imaging Radiology [address] [facility] [address] 07/20/2024 10:15 AM EDT Office Visit Dermatology [facility] [address] [place] [address] Cal Jernigan MD [address] [place] [address] 07/21/2024 1:45 PM EDT Office Visit Hematology/Oncology [facility] [address] [place] [address] Dakota Armando MD [address] [place] [address] 07/24/2024 11:40 AM EDT Office Visit Family Practice [facility] 132 [facility] [place] [address] Sergio Walter MD 132 [facility] [place] [address] Scheduled Procedures Name Priority Associated Diagnoses Date/Ti me COLONOSCOPY FLEXIBLE PROXIMA L DIAGNOSTIC Recall History of adenomatous polyp of colon Health Maintenance Due Date Last Done Comments Depression Screening 09/10/2023 09/10/2022 COLONOSCOPY-ANNUAL AGES 18-100 09/14/2023 09/14/2022, 09/14/2022, 04/02/2017 GFR 12/23/2024 12/23/2023, 11/25, 12/02/2023, Additional history exists Albumin/Creatinine Ratio 10/16/2025 10/16/2022, [...] this encounter Medical Devices Implanted Type Area Critical Care Physician Device Identifier Shelf Expiration Date Model / Serial / Lot Stent Viabil Biliary [id number] - [id number] Implanted:Qty : 1 on 07/17/2021 by Guillermo Jones DO at [place] [facility] [employer]YNALDO [id number] 03/04/2024 [id number] / [id number] / [id number] Port Implant W/8f Poly Cath - [id number] Implanted:Qty : 1 on 09/13/2023 by Gary Rodriguez DO at OR [facility] Right: Chest CR BARD : PERIPHERAL VASCULAR [id number] 04/24/2025 [id number] / / [id number] documented as of this encounter Visit Diagnoses Diagnosis Chronic insomnia Insomnia, unspecified documented in this encounter Advance Directives Documents on File Type Date Recorded Patient Cigarette Roller Expl anation Advance Directives and Living Will [...] Agen t (per Health Care Power of Resident Care Aide document) [email or web address] Temo Cruz First Alternate Health Care Agent (per Health Care Power of Resident Care Aide document) [email or web address] Care Teams Staff Interpreter Relationship Specialty Start Date End Date Sergio Walter MD [address] [place] [address] PCP - General Family Medicine 08/07/19 documented as of this encounter
--- OUTSIDE RECORDS SUMMARY | 2024-04-19 00:08 | External Medical Summary ---
Author Name Unknown Address Unknown Organization [facility] [address] [place] [address] Laboratory Report Ordering Provider Test Date Status JOSE ROY 01/06/2024 10:27:00 Final Observation Date Value Abnormality Reference (Units ) Status SYNC LEUKOCYTES IN BLOOD BY AUTOMATED COUNT 01/06/2024 10:27:00 19.06 Above high normal 4.00-10.80 (K/uL) Final Segs 01/06/2024 10:27:00 86.3 Above high normal 40.0-75.0 (%) Final Lymphs % 01/06/2024 10:27:00 4.6 Below low normal 18.0-42.0 (%) Final Monos 01/06/2024 10:27:00 7.6 1.0-11.0 (%) Final Eosinophils 01/06/2024 10:27:00 1.3 0.0-6.0 (%) Final Basos 01/06/2024 10:27:00 0.2 0.0-2.0 (%) Final Absolute Segs 01/06/2024 10:27:00 16.46 Above high normal 1.80-7.70 (K/uL) Final Lymphs, absolute 01/06/2024 10:27:00 0.87 Below low normal 1.00-4.80 (K/ul) Final Monos, Abs 01/06/2024 10:27:00 1.44 Above high normal 0.00-1.10 (K/uL) Final Eos, Abs 01/06/2024 10:27:00 0.25 0.00-0.70 (K/uL) Final Basos, Abs 01/06/2024 10:27:00 0.04 0.00-0.20 (K/uL) Final Performing Location [facility] [address] [address]
--- OUTSIDE RECORDS SUMMARY | 2024-04-19 00:08 | External Medical Summary | Summary of Care ---
Author Name Unknown Organization [facility] Address [address] [place] [address] Phone [phone] Care Team Providers Care Sales Office Manager Name Role Phone Sergio Walter MD Primary Care Provider + Reason for Visit * Reason Comments Lesion Patient presents tod ay for lesions on face. Encounter Details Date Type Department Care Team (Late st Contact Info) Description 01/06/2024 10:45 AM EST Office Visit Dermatology [facility] 200 [place] [address] Cal Jernigan MD [address] [place] [address] Actinic keratosis* Allergies Active Allergy Reactions Criticality Noted Date [...] mouth in the morning. 0 Active Pancrelipase (Zrr-Eocv-Ujlw) 57594-56266 UNIT Oral Capsule Delayed Release Particles (Creon 74627) 2 cap with meals, 1 with larger [...] -19) 10/16/2022 Coronary artery disease invo lving [place] coronary artery of [place] heart without angina pectoris 08/20/2022 Overview: Severe [...] WNL, antiphos lipids WNL Factor V+heteroqygous. FM SZ-GXGW-DXWYL DIS NEC documented as of this encounter (statuses as of 01/07/2024) Immunizations Name Administration Dates Next Due COVID-19 mRNA, LNP-s, No Pre serve, 2-Dose Series ([employer]) 01/13/2022,07/21/2021,02/01/2021,01/04 COVID-19, MRNA-LNP, 23-24, P F, 30 MCG/0.3 mL, 12 YRS AND ABOVE, IM ([facility]) 09/12/2023 Covid-19, Mrna, Lnp-s, Pf, B ivalent, 30 Mcg, IM, 12 yrs and above ([employer]) 08/16/2022 HEP A - Hepatitis A (Adult [...] as of this encounter Progress Notes * Cal Jernigan MD - 01/06/2024 10:54 AM EST SUBJECTIVE: Chief Complaint: Chief Complaint Patient presents with Lesion Patient presents today for lesions on face. HPI: Rafael Cramer is a 73 year old male seen for lesions on face, particularly irritated spot on left jewish. Feels like they haven't resolved after cryotherapy. New patient to me, prior Dr. Tran patient History of melanoma, last skin check in June, scheduled with me next June for same. Of note receiving currently chemotherapy for metastatic pancreatic cancer. Chemo includes Fluorouracil OBJECTIVE: GEN: Healthy, alert, no distress, appears oriented, pleasant, and cooperative SKIN: Problem focused exam reveals: Left jewish - gritty erythematous macules/papules Scalp with many thin erythematous papules ASSESSMENT/PLAN: Actinic keratoses - Likely inflamed secondary to systemic fluorouracil treatment - will cryo largest lesion on left jewish -The diagnosis and malignant potential of the lesion was explained. Treatment options were reviewedincluding cryotherapy, topical medications, and observation. All questions were addressed. Procedure - Cryotherapy (Premalignant Destruction) -The patient would like to proceed with cryosurgery;Cryosurgery explained to the patient, consent obtained, patient, site and procedure verified, and then cryotherapy was performed with Liquid Nitrogen via cryo spray unit to 1 lesions. Location noted in physical exam. Post op course explained. -Discussed that if any of these lesions fail to completely resolve after treatment patient should call me for re-evaluation F/U - as scheduled in June Cal Jernigan MD Ref: SELF[[id number]] NO STREET ADDRESS AVAILABLE None (office) None (fax) PCP: SERGIO WALTER 132 [facility] [place] [address] [phone] documented in this encounter Nursing Notes * Elizabeth Sheehan LPN - 01/06/2024 10:39 AM EST Patient identified by name and date. Chief Complaint Patient presents with Lesion Patient presents today for lesions on face. documented in this encounter Plan of Treatment Upcoming Encounters Date Type Department Care Team (Late st Contact Info) Description 01/27/2024 11:00 AM EST Imaging Radiology [address], [place] 132 [facility] [place] [address] 02/04/2024 8:45 AM EDT Office Visit Hematology/Oncology [facility] [place] [address] [address] Dakota Armando MD [address] [place] [address] 07/20/2024 10:15 AM EDT Office Visit Dermatology [facility] [place] [address] [place] [address] Cal Jernigan MD [address] [place] [address] 07/21/2024 1:45 PM EDT Office Visit [facility] [place] [address] [place] [address] Dakota Armando MD [address] [place] [address] 07/24/2024 11:40 AM EDT Office Visit Family Practice [facility] [address] [place] [address] Sergio Walter MD [address] [place] [address] Scheduled Procedures Name Priority Associated Diagnoses Date/Ti [...] this encounter Medical Devices Implanted Type Area Clinical Quality Rn Device Identifier Shelf Expiration Date Model / Serial / Lot Stent Viabil Biliary [id number] - [id number] Implanted:Qty : 1 on 07/17/2021 by Guillermo Jones DO at [place]OSCOPY [facility] [place] [employer]NALD[employer] [id number] 03/04/2024 [id number] / [id number] / [id number] Port Implant W/8f Poly Cath - [id number] Implanted:Qty : 1 on 09/13/2023 by Gary Rodriguez DO at OR [facility] Right: Chest CR BARD : PERIPHERAL VASCULAR [id number] 04/24/2025 [id number] / / [id number] documented as of this encounter Visit Diagnoses Diagnosis Actinic keratosis- Primary documented in this encounter Advance Directives Documents on File Type Date Recorded Patient Distribution Center Associate Expl anation Advance Directives and Living [...] Agen t (per Health Care Power of Shell Freezing Machine Operator document) [email or web address] Bela Sibling First Alternate Health Care Agent (per Health Care Power of Shell Freezing Machine Operator document) [email or web address] Care Teams Sales Office Manager Relationship Specialty Start Date End Date Sergio Walter MD [address] [place] [address] PCP - General Family Medicine 08/07/19 documented as of this encounter
--- OUTSIDE RECORDS SUMMARY | 2024-04-19 00:08 | External Medical Summary ---
Author Name Unknown Address Unknown Organization [facility] [place] [address] Laboratory Report Ordering Provider Test Date Status JOSE ROY 01/06/2024 10:27:00 Final Observation Date Value Abnormality Reference (Units ) Status WBC, Total 01/06/2024 10:27:00 19.06 Above high normal 4 .00-10.80 (K/uL) Final RBC 01/06/2024 10:27:00 4.24 4.50-5.25 (M/uL) Final Hemoglobin 01/06/2024 10:27:00 11.7 Below low normal 14 .0-16.8 (g/dL) Final HCT 01/06/2024 10:27:00 38.0 Below low normal 40. 0-48.4 (%) Final MCV 01/06/2024 10:27:00 89.6 82.0-99.5 (fL) Final MCH 01/06/2024 10:27:00 27.6 27.0-34.0 (pg) Final MCHC 01/06/2024 10:27:00 30.8 32.0-36.0 (g/dL) Final RDW 01/06/2024 10:27:00 19.9 11.5-15.5 (%) Final Platelets 01/06/2024 10:27:00 345 140-400 (K /uL) Final MPV 01/06/2024 10:27:00 9.6 6.6-11.1 ( fL) Final Performing Location [facility] [place] [address]
--- OUTSIDE RECORDS SUMMARY | 2024-04-19 00:08 | External Medical Summary ---
Author Name Unknown Address Unknown Organization [facility] [place] [address] Laboratory Report Ordering Provider Test Date Status JOSE ROY 01/06/2024 10:27:00 Final Observation Date Value Abnormality Reference (Units ) Status Nucleated erythrocytes/100 leukocytes [Ratio] in Blood by Automated count 01/06/2024 10:27:00 Final Elliptocytes [Presence] in Blood by Light microscopy 01/06/2024 10:27:00 Moderate Abnormal None Seen Final Schistocytes 01/06/2024 10:27:00 Few Abnormal None Seen Final Performing Location [facility] [place] [address]
--- OUTSIDE RECORDS SUMMARY | 2024-04-19 00:08 | External Medical Summary | Summary of Care ---
Author Name Unknown Organization [facility] Address [address] [place] [address] Phone [phone] Care Team Providers Care Veneer Jointer Offbearer Name Role Phone Sergio Walter MD Primary Care Provider + Reason for Visit * Reason Comments Lesion Patient presents tod ay for lesions on face. Encounter Details Date Type Department Care Team (Late st Contact Info) Description 01/06/2024 10:45 AM EST Office Visit Dermatology [facility] 200 [facility] [place] [address] Cal Jernigan MD 200 [facility] [place] [address] Actinic keratosis* Allergies Active Allergy Reactions Criticality Noted Date Comments Lisinopril Cough Low 08/07/2019 documented as of this encounter (statuses as of 01/06/2024) Medications Medication Sig Dispensed Refills Start Date End Date Status Boost 100 Calorie Smart Oral Liquid Take by mouth. 0 Act miley Multi Vitamin Daily Oral Tablet Take by mouth. 0 Act miley Aspirin 81 MG Oral Tablet Delayed Release Take 1 Tablet by mouth in the morning. 0 Active Pancrelipase (Kcs-Neiw-Perr) 48272-25660 UNIT Oral Capsule Delayed Release Particles (Creon 27825) 2 cap with meals, 1 with larger [...] as of this encounter (statuses as of 01/06/2024) Active Problems Problem Noted Date Diagnosed Date [...] as of this encounter (statuses as of 01/06/2024) Resolved Problems Problem Noted Date Diagnosed Date [...] WNL, antiphos lipids WNL Factor V+heteroqygous. FM VL-CUKC-HLCEF DIS NEC documented as of this encounter (statuses as of 01/06/2024) Immunizations Name Administration Dates Next Due COVID-19 mRNA, LNP-s, No Pre serve, 2-Dose Series ([employer]) 01/13/2022,07/21/2021,02/01/2021,01/04 COVID-19, MRNA-LNP, 23-24, P F, 30 MCG/0.3 mL, 12 YRS AND ABOVE, IM ([facility]) 09/12/2023 Covid-19, Mrna, Lnp-s, Pf, B ivalent, 30 Mcg, IM, 12 yrs and above ([employer]) 08/16/2022 HEP A - Hepatitis A (Adult [...] on face, particularly irritated spot on left yazdanism. Feels like they haven't resolved after cryotherapy. New patient to me, prior Dr. Tran patient History of melanoma, last skin check in June, scheduled with me next June for same. Of note receiving currently chemotherapy for metastatic pancreatic cancer. Chemo includes Fluorouracil OBJECTIVE: GEN: Healthy, alert, no distress, appears oriented, pleasant, and cooperative SKIN: Problem focused exam reveals: Left yazdanism - gritty erythematous macules/papules Scalp with many thin erythematous papules ASSESSMENT/PLAN: Actinic keratoses - Likely inflamed secondary to systemic fluorouracil treatment - will cryo largest lesion on left yazdanism -The diagnosis and malignant potential of the [...] F/U - as scheduled in June Cal Jrenigan MD Ref: SELF[[id number]] [address] ADDRESS AVAILABLE None (office) None (fax) PCP: SERGIO WALTER 132 [facility] [place] [address] [phone] documented in this encounter Nursing Notes * Elizabeth Sheehan LPN - 01/06/2024 10:39 AM EST Patient identified by name and date. Chief Complaint Patient presents with Lesion Patient presents today for lesions on face. documented in this encounter Plan of Treatment Upcoming Encounters Date Type Department Care Team (Late st Contact Info) Description 01/07/2024 8:30 AM EST Hem/Onc Treatment Hematology/Oncology Treatment, [place] 200 [facility] [place] [address] Rehana, Chair 7 Hem Onc [address] [place] [address] 01/27/2024 11:00 AM EST Imaging Radiology [facility] [address]st [facility], [place] 132 [facility] [place] [address] 02/04/2024 8:45 AM EDT Office Visit Hematology/Oncology [facility] [address] [place] [address] Dakota Armando MD [address] [place] [address] [address] 07/20/2024 10:15 AM EDT Office Visit Dermatology [facility] 200 [facility] [place] [address] Cal Jernigan MD 200 [facility] [place] [address] 07/21/2024 1:45 PM EDT Office Visit Hematology/Oncology [facility] [place] 200 [facility] [place] [address] Dakota Armando MD 200 [facility] [place] [address] 07/24/2024 11:40 AM EDT Office Visit Family Practice [facility] [address] [place] [address] Sergio Walter MD [address] [place] [address] Scheduled Procedures Name Priority Associated Diagnoses Date/Ti [...] this encounter Medical Devices Implanted Type Area Field Horticultural Specialty Grower Device Identifier Shelf Expiration Date Model / Serial / Lot Stent Viabil Biliary [id number] - [id number] Implanted:Qty : 1 on 07/17/2021 by Guillermo Jones DO at [place] [facility] [place] [employer] REYNALD[employer] [id number] 03/04/2024 [id number] / [id number] / [id number] Port Implant W/8f Poly Cath - [id number] Implanted:Qty : 1 on 09/13/2023 by Gary Rodriguez DO at OR [facility] Right: Chest CR BARD : PERIPHERAL VASCULAR [id number] 04/24/2025 [id number] / / [id number] documented as of this encounter Visit Diagnoses Diagnosis Actinic keratosis- Primary documented in this encounter Advance Directives Documents on File Type Date Recorded Patient Architecture Technician Expl anation Advance Directives and Living [...] Agen mayte (per Health Care Power of Bakery Machine Mechanic document) [email or web address] Sibling First Alternate Health Care Agent (per Health Care Power of Bakery Machine Mechanic document) .FloQast Care Teams Veneer Jointer Offbearer Relationship Specialty Start Date End Date Sergio Walter MD [address] [place] [address] PCP - General Family Medicine 08/07/19 documented as of this encounter
--- OUTSIDE RECORDS SUMMARY | 2024-04-19 00:08 | External Medical Summary | Summary of Care ---
Author Name Unknown Organization [facility] Address [address] [place] [address] Phone [phone] Care Team Providers Care Candle Extrusion Machine Operator Name Role Phone Sergio Barriga [...] MG Dakota Armando MD [address] [place], [place] [address] Anc Hem/Onc Sharif Kim[facility] DEPT CLOSED - 10/08/23 [address] [place] [address] Referral ID Status Reason Start Date Expiration Date V isits Requested Visits Authorized [id number] Authorized 08/30/2023 11/24/[phone] Encounter Details Date Type Department Care Team (Latest Contact Info) Description 12/27/2023 1:15 PM EST Immunization/ Injection Hematology/Oncology Treatment, [place] [address] [place] [address] Nurse, Med 4 [address] [place] [address] Encounter for antineoplastic chemotherapy*; Metastasis to liver [...] mouth in the morning. 0 Active Pancrelipase (Oab-Llmx-Ifcj) 45908-59100 UNIT Oral Capsule Delayed Release Particles (Creon 69045) 2 cap with meals, 1 with larger [...] EVERY MORNING 90 Tablet 2 09/25/2023 Active ALPRAZolam 1 MG Oral Tablet (xaNAX)Indications :Chronic insomnia TAKE ONE TABLET BY MOUTH AT BEDTIME NEEDED FOR SLEEP 30 Tablet 0 11/22/2023 Active traZODone HCl 100 MG Oral Tablet (Desyrel)Indicatio ns:Persistent insomnia TAKE 1 TABLET BY MOUTH AT BEDTIME 90 Tablet 3 12/19/2023 Active documented as of this encounter (statuses as of 12/27/2023) Active Problems Problem Noted Date Diagnosed Date Malignant neoplasm of body of pancreas Metastasis to liver 08/30/2023 Encounter for antineoplastic chemotherapy 2022 History of carcinoma of pancreas 07/18/2023 Post-viral cough syndrome 07/09/2023 Upper airway cough syndrome 07/09/2023 History of 2019 novel coronavirus disease (COVID -19) 10/16/2022 Coronary artery disease invo lving [place] coronary artery of [place] heart without angina pectoris 08/20/2022 Overview: Severe [...] WNL Factor V+heteroqygous. 04/10 colon-Dr Case [facility] 2 polyps 1 tubular adenoma. Kevin 5y 2013 sleep study [facility] WNL [address] Elena [facility] Essential hypertension with goal [...] WNL, antiphos lipids WNL Factor V+heteroqygous. FM DH-PUVX-CLTDC DIS NEC documented as of this encounter (statuses as of 12/27/2023) Immunizations Name Administration Dates Next Due COVID-19 mRNA, LNP-s, No Pre serve, 2-Dose Series ([employer]) 01/13/2022,07/21/2021,02/01/2021,01/04 COVID-19, MRNA-LNP, 23-24, P F, 30 MCG/0.3 mL, 12 YRS AND ABOVE, IM ([facility]) 09/12/2023 Covid-19, Mrna, Lnp-s, Pf, B ivalent, 30 Mcg, IM, 12 yrs and above ([employer]) 08/16/2022 HEP A - Hepatitis A (Adult [...] Nursing Notes * Nereyda Xiao LPN - 12/27/2023 1:38 PM EST Pt arrived for Udencya injection. Administered in KRYSTAL. Pt tolerated well. Discharged in stable condition. documented in this encounter Plan of Treatment Upcoming Encounters Date Type Department Care Team (Late st Contact Info) Description 01/06/2024 9:00 AM EST Laboratory Laboratory [facility] [place] [address] [place] [address] Park, Lab Scenery [address] [place], [place] [address] 01/06/2024 10:45 AM EST Office Visit Dermatology [facility] [place] [address] [place] [address] Cal Jernigan MD [address] [place] [address] 01/07/2024 8:30 AM EST Hem/Onc Treatment Hematology/Oncology Treatment, [place] [address] [place], [place] [address] Rehana, Chair 7 Hem Onc [facility] [address] [place] [address] 01/27/2024 11:00 AM EST Imaging Radiology [address] [facility] [place] [address] 07/20/2024 10:15 AM EDT Office Visit Dermatology [facility] [address] [place] [address] Cal Jernigan MD [address] [place] [address] 07/21/2024 1:45 PM EDT Office Visit Hematology/Oncology [facility] [address] [place], [place] [address] Dakota Armando MD [address] [place] [address] 07/24/2024 11:40 AM EDT Office Visit Family Practice [facility] [address] [place] [address] Sergio Barriga MD 132 [facility] [place] [address] Scheduled Procedures Name Priority Associated Diagnoses Date/Ti [...] this encounter Medical Devices Implanted Type Area Documentation Lead Device Identifier Shelf Expiration Date Model / Serial / Lot Stent Viabil Biliary [id number] - [id number] Implanted:Qty : 1 on 07/17/2021 by Guillermo Jones DO at ENDOSCOPY [facility] [employer] [id number] 03/04/2024 [id number] / [id number] / [id number] Port Implant W/8f Poly Cath - [id number] Implanted:Qty : 1 on 09/13/2023 by Gary Rodriguez DO at OR [facility] Right: Chest CR BARD : PERIPHERAL VASCULAR [id number] 04/24/2025 [id number] / / [id number] documented as of this encounter Visit Diagnoses [...] on File Type Date Recorded Patient Health Policy Nurse Expl anation Advance Directives and Living [...] Agen t (per Health Care Power of Wire Saw Operator document) [email or web address] Temo Cramer Sibling First Alternate Health Care Agent (per Health Care Power of Wire Saw Operator document) [email or web address] Care Teams Candle Extrusion Machine Operator Relationship Specialty Start Date End Date Sergio Barriga MD [address] [place] [address] PCP - General Family Medicine 08/07/19 documented as of this encounter
--- OUTSIDE RECORDS SUMMARY | 2024-04-19 00:08 | External Medical Summary | Summary of Care ---
Author Name Unknown Organization [facility] Address [address] [place] [address] Phone [phone] Care Team Providers Care Track Superintendent Name Role Phone Sergio Barriga MD Primary Care Provider + Reason for Visit * Reason Comments Outpatient Testing Encounter Details Date Type Department Care Team (Late st Contact Info) Description 01/06/2024 10:20 AM EST Laboratory Laboratory [address] Shaina Kim[facility] [address] [place] [phone] [place], Lab Scenery [address] [place] [address] 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); [...] mouth in the morning. 0 Active Pancrelipase (Nfv-Fjpr-Qmfj) 35513-23074 UNIT Oral Capsule Delayed Release Particles (Creon 66137) 2 cap with meals, 1 with larger [...] -19) 10/16/2022 Coronary artery disease invo lving [place] coronary artery of [place] heart without angina pectoris 08/20/2022 Overview: Severe [...] WNL, antiphos lipids WNL Factor V+heteroqygous. FM XW-ZAQT-JWXPH DIS NEC documented as of this encounter (statuses as of 01/06/2024) Immunizations Name Administration Dates Next Due COVID-19 mRNA, LNP-s, No Pre serve, 2-Dose Series ([employer]) 01/13/2022,07/21/2021,02/01/2021,01/04 COVID-19, MRNA-LNP, 23-24, P F, 30 MCG/0.3 mL, 12 YRS AND ABOVE, IM ([facility]) 09/12/2023 Covid-19, Mrna, Lnp-s, Pf, B ivalent, 30 Mcg, IM, 12 yrs and above ([employer]) 08/16/2022 HEP A - Hepatitis A [...] 01/06/2024 10:45 AM EST Office Visit Dermatology [facility] [place] [address] [place] [address] [address] Cal Jernigan MD [address] [place] [address] Arrived 01/07/2024 8:30 AM EST Hem/Onc Treatment Hematology/Oncology Treatment, [place] [address] [place] [address] Rehana, Chair 7 Hem Onc [place] [address] [place] [address] 01/27/2024 11:00 AM EST Imaging Radiology [address], [place] [address] [place] [address] 02/04/2024 8:45 AM EDT Office Visit Hematology/Oncology [facility] [place] [address] [place] [address] [address] Dakota Armando MD [address] [place] [address] 07/20/2024 10:15 AM EDT Office Visit Dermatology [facility] [place] [address] [place] [address] [address] Cal Jernigan MD [address] [place] [address] 07/21/2024 1:45 PM EDT Office Visit Hematology/Oncology [facility] [place] [address] [place] [address] Dakota Armando MD [address] [place] [address] 07/24/2024 11:40 AM EDT Office Visit Family [facility] [address] [place] [address] Sergio Barriga MD [address] [place] [address] Pending Results Name Type Priority Associated Diagnoses Date /Time CBC WITH WBC DIFFERENTIAL Lab STAT 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) 01/06/2024 10:27 AM EST COMPREHENSIVE METABOLIC PANEL Lab STAT 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) 01/06/2024 10:27 AM EST CBC Lab STAT 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) 01/06/2024 10:27 AM EST DIFFERENTIAL, AUTOMATED Lab STAT 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) 01/06/2024 10:27 AM EST Scheduled Procedures Name Priority Associated [...] this encounter Medical Devices Implanted Type Area Goodwill Ambassador Device Identifier Shelf Expiration Date Model / Serial / Lot Stent Viabil Biliary [id number] - [id number] Implanted:Qty : 1 on 07/17/2021 by Guillermo Jones DO at ENDOSCOPY [facility] [employer] [id number] 03/04/2024 [id number] / [id number] / [id number] Port Implant W/8f Poly Cath - [id number] Implanted:Qty : 1 on 09/13/2023 by Gary Rodriguez DO at OR [facility] Right: Chest CR BARD : PERIPHERAL VASCULAR [id number] 04/24/2025 [id number] / / [id number] documented as of this encounter Visit Diagnoses Diagnosis 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) Malignant neoplasm of body of pancreas 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 documented in this encounter Advance Directives Documents on File Type Date Recorded Patient Fine Sander Expl anation Advance Directives and Living Will 10/23/2022 4:43 PM Virginie PengtLlashaunWiyonas .PDF Latest Code Status on File Code Status Date Activated Date Inactivated Comments Full Code 07/16/2021 10:04 AM 07/18/2021 6:28 PM This order reflects the patients wishes and were consensually agreed upon. Healthcare Agents on File Name Relationship Healthcare Agent Relationship Communication Virginie Cramer Spouse Health Care Agen t (per Health Care Power of Servomechanism Designer document) [email or web address] Temo Cramer Sibling First Alternate Health Care Agent (per Health Care Power of Servomechanism Designer document) Care Teams Track Superintendent Relationship Specialty Start Date End Date Sergio Barriga MD [address] [place] [address] PCP - General Family Medicine 08/07/19 documented as of this encounter
--- OUTSIDE RECORDS SUMMARY | 2024-04-19 00:08 | External Medical Summary | Summary of Care ---
Author Name Unknown Organization [facility] Address [address] [place] [address] Phone [phone] Care Team Providers Care Road Crossing Guard Name Role Phone Sergio Barriga MD Primary Care Provider + Reason for Visit * Reason Comments Procedure Pump disconnect * Episode Based Medications (Routine) - Authorized Specialty Diagnoses / Procedures Referred By Contlexii t Referred To Contact Diagnoses Encounter for antineoplastic chemotherapy 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) 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) Procedures NY LEUCOVORIN CALCIUM INJECTION [place] FLUOROURACIL INJECTION [place] IRINOTECAN INJECTION [place] OXALIPLATIN [place] FOSAPREPITANT INJECTION BEVACIZUMAB-BVZR, BIOSIMILAR, 10 MG (ZIRABEV), IV [place] INJECTION, UDENYCA 0.5 MG Dakota Armando MD [address] [place], [place] [address] Anc Hem/Onc [facility] DEPT CLOSED - 10/08/23 [address] [place] [address] Referral ID Status Reason Start Date Expiration Date V isits Requested Visits Authorized [id number] Authorized 08/30/2023 11/24/2099 999 99 Encounter Details Date Type Department Care Team (Latest Contact Info) Description 12/26/2023 1:15 PM EST Immunization/ Injection Hematology/Oncology Treatment, [place] [address] [place] [address] Nurse, Med 4 [address] [place] [address] Encounter for antineoplastic chemotherapy*; 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); 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); Encounter for adjustment and management of vascular access device Allergies Active Allergy Reactions Criticality Noted Date Comments Lisinopril Cough Low 08/07/2019 documented as of this encounter (statuses as of 12/26/2023) Medications Medication Sig Dispensed Refills Start Date End Date Status Boost 100 Calorie Smart Oral Liquid Take by mouth. 0 Act miley Multi Vitamin Daily Oral Tablet Take by mouth. 0 Act miley Aspirin 81 MG Oral Tablet Delayed Release Take 1 Tablet by mouth in the morning. 0 Active Pancrelipase (Gwd-Zowe-Nggn) 12791-42272 UNIT Oral Capsule Delayed Release Particles (Creon 27411) 2 cap with meals, 1 with larger [...] as of this encounter (statuses as of 12/26/2023) Active Problems Problem Noted Date Diagnosed Date [...] lipids WNL Factor V+heteroqygous. 04/10 colon-Dr Case [facility] 2 polyps 1 tubular adenoma. Kevin 5y 2013 sleep study [facility] WNL [address] Elena [facility] Essential hypertension with goal blood pressure [...] as of this encounter (statuses as of 12/26/2023) Resolved Problems Problem Noted Date Diagnosed Date [...] WNL, antiphos lipids WNL Factor V+heteroqygous. FM LE-PTEN-OFGIL DIS NEC documented as of this encounter (statuses as of 12/26/2023) Immunizations Name Administration Dates Next Due COVID-19 mRNA, LNP-s, No Pre serve, 2-Dose Series ([employer]) 01/13/2022,07/21/2021,02/01/2021,01/04 COVID-19, MRNA-LNP, 23-24, P F, 30 MCG/0.3 mL, 12 YRS AND ABOVE, IM ([employer] [facility]) 09/12/2023 Covid-19, Mrna, Lnp-s, Pf, B ivalent, 30 Mcg, IM, 12 yrs and above ([employer]) 08/16/2022 HEP A - Hepatitis A (Adult [...] Nursing Notes * Jing Bray, RN - 12/26/2023 3:20 PM EST Chair 7, pump disconnect. CADD pump indicates 0ml reservoir volume and screen indicates infusion iscomplete. CADD line clamped/disconnected from VAD. VAD flushed with 10 ml NSS and Heparin 5 ml (100units/ml). Soriano needle removed intact. Pt states he feels well today, and aside from fatigue has no symptoms to report. Pt discharged in stable condition. documented in this encounter Plan of Treatment Upcoming Encounters Date Type Department Care Team (Late st Contact Info) Description 12/27/2023 1:15 PM EST Immunization/Injectio n Hematology/Oncology Treatment, [place] 200 [facility], [place] [address] Nurse, Med 4 [address] [place] [address] 01/06/2024 9:00 AM EST Laboratory Laboratory [facility] [place] [address] [place] [phone] [place], Lab [facility] 200 [facility] [place] [address] [facility] [place] [address] 01/06/2024 10:45 AM EST Office Visit Dermatology [facility] [address] [place] [address] Cal Jernigan MD 200 [facility] [place] [address] 01/07/2024 8:30 AM EST Hem/Onc Treatment Hematology/Oncology Treatment, [place] 200 [facility], [place] [address] Rehana, Chair 7 Hem Onc [place] [address] [place] [address] 01/27/2024 11:00 AM EST Imaging Radiology [address], [address] [address] 07/20/2024 10:15 AM EDT Office Visit Dermatology [facility] [place] [address] [place] [address] Cal Jernigan MD [address] [place] [address] 07/21/2024 1:45 PM EDT Office Visit Hematology/Oncology [facility] [place] [address] [place] [address] Dakota Armando MD [address] [place] [address] 07/24/2024 11:40 AM EDT Office Visit Family Practice [facility] [address] [place] [address] Sergio Barriga MD [address] [place] [address] Scheduled Procedures Name Priority Associated Diagnoses Date/Ti [...] this encounter Medical Devices Implanted Type Area Management Trainee Device Identifier Shelf Expiration Date Model / Serial / Lot Stent Viabil Biliary [id number] - [id number] Implanted:Qty : 1 on 07/17/2021 by Guillermo Jones DO [place] [facility] [employer] [id number] 03/04/2024 [id number] / [id number] / [id number] Port Implant W/8f Poly Cath - [id number] Implanted:Qty : 1 on 09/13/2023 by Gary Rodriguez DO at OR [facility] Right: Chest CR BARD : PERIPHERAL VASCULAR [id number] 04/24/2025 [id number] / / [id number] documented as of this encounter Visit Diagnoses Diagnosis Encounter for antineoplastic chemotherapy- Primary 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) Malignant neoplasm of body of pancreas Encounter for adjustment and management of vascular access device documented in this encounter Administered Medications Active Administered Medications - up to 3 most recent administrations Medication Order MAR Action Action Date Dose Rate Site hEParin 100 UNIT/ML Lock Flush inj 500 Units 500 Units (5 mL), IV Lock, PRN Other, IV Flush, Starting on Marilia 12/26/23 at 1318, Until Sat12/27/23 at 1317, For 24 hours, Do not flush if lock, PICC, or central line not in place; IV infusing or unable to flush. Given 12/26/2023 1:23 PM EST 500 Units sodium chloride 0.9 % flush central line 10 mL 10 mL, IV Push, PRN Other, IV Flush, Starting on Marilia 12/26/23 at 1318, Until Sat12/27/23 at 1317, For 24 hours, Do not flush if lock, PICC, or central line not in place; IV infusing or unable to flush. Given 12/26/2023 1:23 PM EST 10 mL documented in this encounter Advance Directives Documents on File Type Date Recorded Patient Septic Cleaner Expl anation Advance Directives and Living [...] (per Health Care Power of Director Of Science document) [email or web address] Temo Cramer Sibling First Alternate Health Care Agent (per Health Care Power of Director Of Science document) [email or web address] Care Teams Road Crossing Guard Relationship Specialty Start Date End Date Sergio Barriga MD [address] [place] [address] PCP - General Family Medicine 08/07/19 documented as of this encounter
--- OUTSIDE RECORDS SUMMARY | 2024-04-19 00:08 | External Medical Summary | Summary of Care ---
Author Name Unknown Organization [facility] Address [address] [place] [address] Phone [phone] Care Team Providers Care Manager Learning Name Role Phone Sergio Barriga MD Primary Care Provider + Encounter Details Date Type Department Care Team (Late st Contact Info) Description 01/07/2024 Orders Only [facility] [address] [facility] [place] [address] Dakota Armando MD 200 [facility] [place], [place] [address] Allergies Active Allergy Reactions Criticality Noted Date [...] mouth in the morning. 0 Active Pancrelipase (Sza-Obpu-Ifqh) 58095-81211 UNIT Oral Capsule Delayed Release Particles (Creon 51232) 2 cap with meals, 1 with larger [...] infusion 4300 mg IV CONTINUOUS 01/07/2024 01/09/2024 Active documented as of this encounter (statuses as of 01/07/2024) Active Problems Problem Noted Date Diagnosed Date Malignant neoplasm of body of pancreas 3 Metastasis to liver 08/30/2023 Encounter for antineoplastic chemotherapy 2022 History of carcinoma of pancreas 07/18/2023 Post-viral cough syndrome 07/09/2023 Upper airway cough syndrome 07/09/2023 History of 2019 novel coronavirus disease (COVID -19) 10/16/2022 Coronary artery disease invo lving [place] coronary artery of [place] heart without angina pectoris 08/20/2022 Overview: Severe [...] Factor V+heteroqygous. 04/10 colon-Dr Eller [facility] 2 polyps 1 tubular adenoma. Kevin 5y 2013 sleep study [facility] WNL [address] Elena [facility] [...] WNL, antiphos lipids WNL Factor V+heteroqygous. FM KG-RRXK-WKTEY DIS NEC documented as of this encounter (statuses as of 01/07/2024) Immunizations Name Administration Dates Next Due COVID-19 mRNA, LNP-s, No Pre serve, 2-Dose Series ([employer]) 01/13/2022,07/21/2021,02/01/2021,01/04 COVID-19, MRNA-LNP, 23-24, P F, 30 MCG/0.3 mL, 12 YRS AND ABOVE, IM ([facility]) 09/12/2023 Covid-19, Mrna, Lnp-s, Pf, B ivalent, 30 Mcg, IM, 12 yrs and above ([employer]) 08/16/2022 HEP A - Hepatitis A (Adult [...] AM EST Hem/Onc Treatment Hematology/Oncolog y Treatment, [place] [address] [place] [address] Rehana, Chair 7 Hem Onc [place] [address] [address] [place] [address] Encounter for antineoplastic chemotherapy*; 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); 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) 01/27/2024 11:00 AM EST Imaging Radiology [facility] [place] [address] [facility] [address] 02/04/2024 8:45 AM EDT Office Visit Hematology/Oncolog y [facility] [place] [address] [place] [address] Dakota Armando MD [address] [place] [address] 07/20/2024 10:15 AM EDT Office Visit Dermatology [facility] [place] [address] [place] [address] Cal Jernigan MD [address] [place] [address] 07/21/2024 1:45 PM EDT Office Visit Hematology/Oncolog y [facility] [place] [address] [place] [address] Dakota Armando MD 200 [facility] [place] [address] 07/24/2024 11:40 AM EDT Office Visit Family Practice [facility] [address] [facility] [place] [address] Sergio Barriga MD [address] [facility] [place] [address] Scheduled Procedures Name Priority Associated Diagnoses Date/Ti [...] this encounter Medical Devices Implanted Type Area Loss Control Consultant Device Identifier Shelf Expiration Date Model / Serial / Lot Stent Viabil Biliary [id number] - [id number] Implanted:Qty : 1 on 07/17/2021 by Guillermo Jones DO at [place]OSCOPY [facility] [employer] [place] [id number] 03/04/2024 [id number] / [id number] / [id number] Port Implant W/8f Poly Cath - [id number] Implanted:Qty : 1 on 09/13/2023 by Gary Rodriguez DO at OR [facility] Right: Chest CR BARD : PERIPHERAL VASCULAR [id number] 04/24/2025 [id number] / / [id number] documented as of this encounter Advance Directives Documents on File Type Date Recorded Patient Machine Inker Expl anation Advance Directives and Living Will 10/23/2022 4:43 PM Virginie RoseibEugeniaWiyonas .PDF Latest Code Status on File Code Status Date Activated Date Inactivated Comments Full Code 07/16/2021 10:04 AM 07/18/2021 6:28 PM This order reflects the patients wishes and were consensually agreed upon. Healthcare Agents on File Name Relationship Healthcare Agent Relationship Communication Virginie Cramer Spouse Health Care Agen t (per Health Care Power of Certified Hyperbaric Technologist document) [email or web address] [email or web address] Bela Sibling First Alternate Health Care Agent (per Health Care Power of Certified Hyperbaric Technologist document) [email or web address] Care Teams Manager Learning Relationship Specialty Start Date End Date Sergio Barriga MD [address] [place] [address] PCP - General Family Medicine 08/07/19 documented as of this encounter
--- OUTSIDE RECORDS SUMMARY | 2024-04-19 00:08 | External Medical Summary ---
Author Name Unknown Address Unknown Organization K09[facility] [address] [place] [address] Laboratory Report Ordering Provider Test Date Status JOSE ROY 01/06/2024 10:27:00 Final Observation Date Value Abnormality Reference (Units ) Status BUN 01/06/2024 10:27:00 8 6-20 (mg/dL) Final Creatinine 01/06/2024 10:27:00 1.0 0.6-1.2 (mg/dL) Final Glomerular filtration rate/1.73 sq M.predicted [Volume Rate/Area] in Serum, Plasma or Blood by Creatinine-based formula (CKD-EPI) 01/06/2024 10:27:00 84 >=60 (mL/min) Final eGFR is calculated based on the CKD-EPI 2020 equation SODIUM 01/06/2024 10:27:00 139 135-146 (m mol/L) Final Potassium 01/06/2024 10:27:00 3.9 3.5-5.1 (m mol/L) Final Cl 01/06/2024 10:27:00 100 98-107 (mm ol/L) Final CO2 01/06/2024 10:27:00 27 22-32 (mmo l/L) Final Anion gap 01/06/2024 10:27:00 12 7-15 (mmol /L) Final Glucose 01/06/2024 10:27:00 121 Above high normal 70 -120 (mg/dL) Final Albumin 01/06/2024 10:27:00 3.9 3.8-5.0 (g /dL) Final AST (Aspartate aminotransferase) 01/06/2024 10:27:00 26 10-50 (U/L) Fin al Alk Phos 01/06/2024 10:27:00 234 Above high normal 35 -130 (U/L) Final Bilirubin, Total 01/06/2024 10:27:00 0.3 <=1 .2 (mg/dL) Final Calcium 01/06/2024 10:27:00 9.5 8.4-10.2 ( mg/dL) Final Protein 01/06/2024 10:27:00 6.8 6.0-8.3 (g /dL) Final ALT (Alanine aminotransferase) 01/06/2024 10:27:00 27 10-50 (U/L) Silverio baker Performing Location [facility] [address] [place] [address]
--- OUTSIDE RECORDS SUMMARY | 2024-04-19 00:09 | External Medical Summary | Summary of Care ---
Author Name Unknown Organization [facility] Address [address] [place] [address] Phone [phone] Care Team Providers Care Manager Transit Name Role Phone Sergio Barriga MD Primary [...] MG Dakota Armando MD [address] [place], [place] [address] Anc Hem/Onc [facility] DEPT CLOSED - 10/08/23 [address] [place] [address] Referral ID Status Reason Start Date Expiration Date V isits Requested Visits Authorized [id number] Authorized 08/30/2023 11/24/2099 999 99 Encounter Details Date Type Department Care Team (Latest Contact Info) Description 12/13/2023 1:00 PM EST Immunization/ Injection Hematology/Oncology Treatment, [place] [address] [place] [address] Nurse, Med 4 [address] [place] [address] Encounter for antineoplastic chemotherapy*; 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); 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) Allergies Active Allergy Reactions Criticality Noted Date Comments Lisinopril Cough Low 08/07/2019 documented as of this encounter (statuses as of 12/13/2023) Medications Medication Sig Dispensed Refills Start Date End Date Status Boost 100 Calorie Smart Oral Liquid Take by mouth. 0 Act miley Multi Vitamin Daily Oral Tablet Take by mouth. 0 Act miley Aspirin 81 MG Oral Tablet Delayed Release Take 1 Tablet by mouth in the morning. 0 Active Pancrelipase (Wjl-Xosa-Bghs) 94442-35636 UNIT Oral Capsule Delayed Release Particles (Creon 33575) 2 cap with meals, 1 with larger snack. (up to 8/day) 240 Capsule 11 09/10/2022 Active Continuation of patient use of medical marijuana is approved Inhale 1 Capsule by mouth as needed. 0 09/10/2022 Active traZODone HCl 100 MG Oral Tablet (Desyrel)Indicatio ns:Persistent insomnia TAKE 1 TABLET BY MOUTH AT BEDTIME 90 Tablet 2 04/08/2023 Active Pantoprazole Sodium 40 MG Oral Tablet [...] FOR SLEEP 30 Tablet 0 11/22/2023 Active documented as of this encounter (statuses as of 12/13/2023) Active Problems Problem Noted Date Diagnosed Date Malignant neoplasm of body of pancreas Metastasis to liver 08/30/2023 Encounter for antineoplastic chemotherapy 2022 History of carcinoma of pancreas 07/18/2023 Post-viral cough syndrome 07/09/2023 Upper airway cough syndrome 07/09/2023 History of 2019 novel coronavirus disease (COVID -19) 10/16/2022 Coronary artery disease invo lving [place] coronary artery of [place] heart without angina pectoris 08/20/2022 Overview: Severe [...] lipids WNL Factor V+heteroqygous. 04/10 colon-Dr Case [facility] 2 polyps 1 tubular [...] as of this encounter (statuses as of 12/13/2023) Resolved Problems Problem Noted Date Diagnosed Date [...] WNL, antiphos lipids WNL Factor V+heteroqygous. FM IB-MFBW-PNDAF DIS NEC documented as of this encounter (statuses as of 12/13/2023) Immunizations Name Administration Dates Next Due COVID-19 mRNA, LNP-s, No Pre serve, 2-Dose Series (BPT) 01/13/2022,07/21/2021,02/01/2021,12/26 COVID-19, MRNA-LNP, 23-24, P F, 30 MCG/0.3 mL, 12 YRS AND ABOVE, IM (Sumbola-Comirnat[employer]) 09/12/2023 Covid-19, Mrna, Lnp-s, Pf, B ivalent, 30 Mcg, IM, 12 yrs and above (BPT) 08/16/2022 HEP A - Hepatitis A (Adult [...] 12/17/2023 8:45 AM EST Office Visit Hematology/Oncology [place], [place] [address] [place] [address] Dakota Armando MD [address] [place] [address] 12/23/2023 9:30 AM EST Laboratory Laboratory [facility] [address] [place], [place] [phone] [place], Lab [place] [place] [address] 12/24/2023 10:00 AM EST [facility] [address] [place], [place] [address] Rehana, Chair 1 Hem Onc [facility] [address] [place], [place] [address] 01/06/2024 10:45 AM EST Office Visit Dermatology [facility] [address] [place] [address] Cal Jernigan MD [address] [place] [address] 07/20/2024 10:15 AM EDT Office Visit Dermatology [facility] [address] [place] [address] Cal Jernigan MD [address] [place] [address] 07/21/2024 1:45 PM EDT Office Visit Hematology/Oncology [facility] [address] [place] [address] Dakota Armando MD [address] [place] [address] 07/24/2024 11:40 AM EDT Office Visit [facility] [address] [place] [address] Sergio Barriga MD 132 [facility] [place] [address] Scheduled Procedures Name Priority Associated Diagnoses Date/Ti me COLONOSCOPY FLEXIBLE PROXIMA L DIAGNOSTIC Recall History of adenomatous polyp of colon Health Maintenance Due Date Last Done Comments Depression Screening 09/10/2023 09/10/2022 COLONOSCOPY-ANNUAL AGES 18-100 09/14/2023 09/14/2022, 09/14/2022, 04/02/2017 GFR 12/09/2024 12/09/2023, 06/2024, 11/04/2023, Additional history exists Albumin/Creatinine Ratio 10/16/2025 10/16/2022, [...] this encounter Medical Devices Implanted Type Area Pen Rider Device Identifier Shelf Expiration Date Model / Serial / Lot Stent Viabil Biliary [id number] - [id number] Implanted:Qty : 1 on 07/17/2021 by Guillermo Jones DO at ENDOSCOPY [facility] [employer] [id number] 03/04/2024 [id number] / [id number] / [id number] Port Implant W/8f Poly Cath - [id number] Implanted:Qty : 1 on 09/13/2023 by Gary Rodriguez DO at OR [facility] Right: Chest CR BARD : PERIPHERAL VASCULAR [id number] 04/24/2025 [id number] / [id number] documented as of this encounter Visit Diagnoses [...] Documents on File Type Date Recorded Patient Orthopedics Teacher Expl anation Advance Directives and Living [...] Agen t (per Health Care Power of Votator Machine Operator document) [email or web address] [email or web address] Bela Sibling First Alternate Health Care Agent (per Health Care Power of Votator Machine Operator document) [email or web address] Care Teams Manager Transit Relationship Specialty Start Date End Date Sergio Barriga MD [address] [place] [address] PCP - General Family Medicine 08/07/19 documented as of this encounter
--- OUTSIDE RECORDS SUMMARY | 2024-04-19 00:09 | External Medical Summary | Summary of Care ---
Author Name Unknown Organization [facility] Address [address] [place] [address] Phone [phone] Care Team Providers Care Adult School Teacher Name Role Phone Sergio Barriga MD [...] 0.5 MG Dakota Armando MD [address] [place], [place] [address] Anc Hem/Onc Scene [place] DEPT CLOSED - 10/08/23 [address] [place] [address] Referral ID Status Reason Start Date Expiration Date V isits Requested Visits Authorized [id number] Authorized 08/30/2023 11/24/2099 999 99 Encounter Details Date Type Department Care Team (Latest Contact Info) Description 12/24/2023 10:30 AM EST Hem/Onc Treatment Hematology/Oncolog y Treatment, [place] [address] [place] [address] Rehana, Chair 11 Hem Onc [place] [address] [place] [address] Encounter for antineoplastic chemotherapy*; 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); 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) Allergies Active Allergy Reactions Criticality Noted Date Comments Lisinopril Cough Low 08/07/2019 documented as of this encounter (statuses as of 12/24/2023) Medications Medication Sig Dispensed Refills Start Date End Date Status Boost 100 Calorie Smart Oral Liquid Take by mouth. 0 Act miley Multi Vitamin Daily Oral Tablet Take by mouth. 0 Act miley Aspirin 81 MG Oral Tablet Delayed Release Take 1 Tablet by mouth in the morning. 0 Active Pancrelipase (Znr-Rmas-Flei) 72157-06542 UNIT Oral Capsule Delayed Release Particles (Creon 02396) 2 cap with meals, 1 with larger [...] as of this encounter (statuses as of 12/24/2023) Active Problems Problem Noted Date Diagnosed Date [...] WNL Factor V+heteroqygous. 04/10 colon-Dr Case [facility] 2 polyps 1 tubular adenoma. Kevin 6y 2013 sleep study [facility] WNL [address] [facility] as of this encounter (statuses as of 12/24/2023) Resolved Problems Problem Noted Date Diagnosed Date [...] WNL, antiphos lipids WNL Factor V+heteroqygous. FM [id number]-[id number] DIS NEC documented as of this encounter (statuses as of 12/24/2023) Immunizations Name Administration Dates Next Due COVID-19 mRNA, LNP-s, No Pre serve, 2-Dose Series (Provesica) 01/13/2022,07/21/2021,02/01/2021,01/04 COVID-19, MRNA-LNP, 23-24, P F, 30 MCG/0.3 mL, 12 YRS AND ABOVE, IM ([facility]) 09/12/2023 Covid-19, Mrna, Lnp-s, Pf, B ivalent, 30 Mcg, IM, 12 yrs and above (Provesica) 08/16/2022 HEP A - Hepatitis A (Adult [...] fever, today is fine. Reviewed with Dr Jagjit goddard to proceed with treatment. documented in this encounter Plan of Treatment Upcoming Encounters Date Type Department Care Team (Late st Contact Info) Description 12/26/2023 1:15 PM EST Immunization/Injectio n Hematology/Oncology Treatment, [place] 200 [facility] [place] [address] Nurse, Med 4 200 [facility] [place] [address] 12/27/2023 1:15 PM EST Immunization/Injectio n Hematology/Oncology Treatment, [place] 200 [facility] [place] [address] Nurse, Med 4 200 [facility] [place] [address] 01/06/2024 9:00 AM EST Laboratory Laboratory [facility] [place] 200 [facility] [place] [phone] Park, Lab [address] [place] [address] 01/06/2024 10:45 AM EST Office Visit Dermatology [facility] [place] 200 [facility] [place] [address] Cal Jernigan MD 200 [facility] [place] [address] 01/07/2024 8:30 AM EST Hem/Onc Treatment Hematology/Oncology Treatment, [place] 200 [facility] [place] [address] Rehana, Chair 7 Hem Onc [place] [address] [place] [address] 01/27/2024 11:00 AM EST Imaging Radiology [address], [place] 132 [facility] [place] [address] 07/20/2024 10:15 AM EDT Office Visit Dermatology [facility] 200 [facility] [place] [address] Cal Jernigan MD 200 [facility] [place] [address] 07/21/2024 1:45 PM EDT Office Visit Hematology/Oncology [facility] 200 [facility] [place] [address] Dakota Armando MD 200 [facility] [place] [address] 07/24/2024 11:40 AM EDT Office Visit Family Practice [facility] [address] [place] [address] Sergio Barriga MD [address] [facility] [place] [address] Scheduled Procedures Name Priority Associated Diagnoses Date/Ti [...] this encounter Medical Devices Implanted Type Area Merchandising Internship Device Identifier Shelf Expiration Date Model / Serial / Lot Stent Viabil Biliary [id number] - [id number] Implanted:Qty : 1 on 07/17/2021 by Guillermo Jones DO at ENDOSCOPY [facility] [employer]ALK[employer] [id number] 03/04/2024 [id number] / [id number] / [id number] Port Implant W/8f Poly Cath - [id number] Implanted:Qty : 1 on 09/13/2023 by Gary Rodriguez DO at OR [facility] Right: Chest CR BARD : PERIPHERAL VASCULAR [id number] 04/24/2025 [id number] / / [id number] documented as of this encounter Visit Diagnoses [...] on Sat12/24/23 at 1115, Until Sat12/24/23 at 2114 Start Infusion 12/24/2023 10:52 AM EST 500 mL 50 mL/hr diphenhydrAMINE (Benadryl) inj 50 mg 50 mg, IV Push, ONCE PRN Other, Hypersensitivity Reaction, Starting on Sat12/24/23 at 1034, Until Sat12/25/23 at 1033, For 24 hours EPINEPHrine 1 MG/ML inj 0.3 mg 0.3 mg, Intramuscular, ONCE PRN Other, Hypersensitivity Reaction or Anaphylaxis, Starting on Sat12/24/23 at 1034, Until Sat12/25/23 at 1033, For 24 hours hEParin 100 UNIT/ML Lock Flush inj 500 Units 500 Units (5 mL), IV Lock, PRN Other, IV Flush, Starting on Sat12/24/23 at 1034, Until Sat12/25/23 at 1033, For 24 hours, Do not flush if lock, PICC, or central line not in place; IV infusing or unable to flush. Hydrocortisone Sod Suc (PF) (Solu-Cortef) inj 100 mg 100 mg, IV Push, ONCE PRN Other, Hypersensitivity Reaction, Starting on Sat12/24/23 at 1034, Until Sat12/25/23 at 1033, For 24 hours oxygen GAS Inhalation, OXYGEN, First dose on Sat12/24/23 at 1115, Until Discontinued, Device/Managed by: Low [...] Push, PRN Other, IV Flush, Starting on Sat12/24/23 at 1034, Until Sat12/25/23 at 1033, For 24 hours, Do not flush if [...] Given 12/24/2023 1:39 PM EST 0.4 mg Fluorouracil (5-Fu) 4,300 [...] Documents on File Type Date Recorded Patient Metallurgy Teacher Expl anation Advance Directives and Living [...] t (per Health Care Power of Clinical Social Work Aide document) [email or web address] Sibling First Alternate Health Care Agent (per Health Care Power of Clinical Social Work Aide document) [email or web address] Care Teams Adult School Teacher Relationship Specialty Start Date End Date Sergio Barriga MD [address] [place] [address] PCP - General Family Medicine 08/07/19 documented as of this encounter
--- OUTSIDE RECORDS SUMMARY | 2024-04-19 00:09 | External Medical Summary | Summary of Care ---
Author Name Unknown Organization [facility] Address [address] [place] [address] Phone [phone] Care Team Providers Care Environmental Laboratory Technician Name Role Phone Sergio Barriga [...] MG Dakota Armando MD [address] [place], [place] [address] Anc Hem/Onc [facility] DEPT CLOSED - 10/08/23 [address] [place] [address] Referral ID Status Reason Start Date Expiration Date V isits Requested Visits Authorized [id number] Authorized 08/30/2023 11/24/2099 999 99 Encounter Details Date Type Department Care Team (Latest Contact Info) Description 12/13/2023 1:00 PM EST Immunization/ Injection Hematology/Oncology Treatment, [place] [address] [place] [address] Nurse, Med 4 [address] [place] [address] Encounter for antineoplastic chemotherapy*; Metastasis to liver [...] mouth in the morning. 0 Active Pancrelipase (Baz-Ivta-Ypby) 41606-[address] UNIT Oral Capsule Delayed Release Particles (Creon 04968) 2 cap with meals, 1 with larger [...] -19) 10/16/2022 Coronary artery disease invo lving [place] coronary artery of [place] heart without angina pectoris 08/20/2022 Overview: Severe [...] 04/10 colon-Dr Case [facility] 2 polyps 1 tubular adenoma. Kevin 6y 2013 sleep study [facility] WNL [address] Elena [facility] Essential hypertension with goal blood pressure less [...] WNL, antiphos lipids WNL Factor V+heteroqygous. FM WH-[id number]-FKLDE DIS NEC documented as of this encounter (statuses as of 12/13/2023) Immunizations Name Administration Dates Next Due COVID-19 mRNA, LNP-s, No Pre serve, 2-Dose Series (Amadix) 01/13/2022,07/21/2021,02/01/2021,12/26 COVID-19, MRNA-LNP, 23-24, P F, 30 MCG/0.3 mL, 12 YRS AND ABOVE, IM (Backdoor-ComirnatPenemarie K Murphy) 09/12/2023 Covid-19, Mrna, Lnp-s, Pf, B ivalent, 30 Mcg, IM, 12 yrs and above (Amadix) 08/16/2022 HEP A - Hepatitis A (Adult [...] AM EST Office Visit Hematology/Oncology [place], [place] [address] [place] [address] Dakota Armando MD [address] [place] [address] 12/23/2023 9:30 AM EST Laboratory Laboratory [facility] [address] [place], [place] [phone] Reh[place], Lab [place]enery [address] [place] [address] 12/24/2023 10:00 AM EST [facility] [address] [place], [place] [address] Rehana, Chair 1 Hem Onc [facility] [address] [place], [place] [address] 01/06/2024 10:45 AM EST Office Visit Dermatology [facility] [address] [place] [address] Cal Jernigan MD [address] [place] [address] 07/20/2024 10:15 AM EDT Office Visit Dermatology [facility] [address] [place] [address] Cal Jernigan MD [address] [place] [address] 07/21/2024 1:45 PM EDT Office Visit Hematology/Oncology [facility] [address] [place] [address] Dakota Armando MD [address] [place] [address] 07/24/2024 11:40 AM EDT Office Visit [facility] [address] [place] [address] Sergio Barriga MD 132 [facility] [place] [address] Scheduled Procedures Name Priority Associated Diagnoses Date/Ti [...] this encounter Medical Devices Implanted Type Area Cap Jewel Plate Assembler Device Identifier Shelf Expiration Date Model / Serial / Lot Stent Viabil Biliary [id number] - [id number] Implanted:Qty : 1 on 07/17/2021 by Guillermo Jones DO at ENDOSCOPY [facility] [employer]um[employer] [id number] 03/04/2024 [id number] / [id number] / [id number] Port Implant W/8f Poly Cath - [id number] Implanted:Qty : 1 on 09/13/2023 by Gary Rodriguez DO at OR [facility] Right: Chest CR BARD : PERIPHERAL VASCULAR [id number] 04/24/2025 [id number] / / [id number] documented as of this encounter Visit Diagnoses [...] Documents on File Type Date Recorded Patient Baby Stroller Rental Clerk Expl anation Advance Directives and Living [...] Agen t (per Health Care Power of Chip Mucker document) [email or web address] [email or web address] [email or web address] [email or web address] First Alternate Health Care Agent (per Health Care Power of Chip Mucker document) Care Teams Environmental Laboratory Technician Relationship Specialty Start Date End Date Sergio Barriga MD [address] [place] [address] PCP - General Family Medicine 08/07/19 documented as of this encounter
--- OUTSIDE RECORDS SUMMARY | 2024-04-19 00:09 | External Medical Summary | Summary of Care ---
Author Name Unknown Organization [facility] Address [address] [place] [address] Phone [phone] Care Team Providers Care Manager People Name Role Phone Sergio Barriga MD Primary Care Provider + Reason for Visit * Reason Onset Date Comments Scheduling 07/18/2023 Encounter Details Date Type Department Care Team (Late st Contact Info) Description 07/18/2023 Telephone Family Practice [facility] [address] [place] [address] Sergio Barriga MD [address] [facility] [address] Scheduling Allergies Active Allergy Reactions Criticality Noted Date Comments Lisinopril Cough Low 08/07/2019 documented as of this encounter (statuses as of 12/23/2023) Medications Medication Sig Dispensed Refills Start Date End Date Status Boost 100 Calorie Smart Oral Liquid Take by mouth. 0 Active Multi Vitamin Daily Oral Tablet Take by mouth. 0 Active Aspirin 81 MG Oral Tablet Delayed Release Take 1 Tablet by mouth in the morning. 0 Active Pancrelipase (Gsl-Thft-Sadi) 01738-72289 UNIT Oral Capsule Delayed Release Particles (Creon 72426) 2 cap with meals, 1 with larger snack. (up to 8/day) 240 Capsule 11 09/10/2022 Active Continuation of patient use of medical marijuana is approved Inhale 1 Capsule by mouth as needed. 0 09/10/2022 Active Pantoprazole Sodium 40 MG Oral Tablet Delayed Release (Protonix) TAKE 1 TABLET BY MOUTH EVERY MORNING 90 Tablet 3 07/03/2023 Active Atorvastatin Calcium 40 MG Oral Tablet (Lipitor) Take 1 Tablet (40 mg) by mouth in the morning. 90 Tablet 3 10/16/2022 3 Discontinued traZODone HCl 100 MG Oral Tablet (Desyrel)Indica tions:Persisten t insomnia TAKE 1 TABLET BY MOUTH AT BEDTIME 90 Tablet 2 04/08/2023 4 Discontinued ALPRAZolam 1 MG Oral Tablet (xaNAX)Indicati ons:Chronic insomnia TAKE ONE TABLET BY MOUTH AT BEDTIME NEEDED FOR SLEEP 30 Tablet 2 06/20/2023 3 Discontinued Omeprazole 20 MG Oral Capsule Delayed Release (PriLOSEC) Take 1 Capsule by mouth in the morning. 0 3 Discontinued(Medi cation List Clean Up) documented as of this encounter (statuses as of 12/23/2023) Active Problems Problem Noted Date Diagnosed Date Malignant neoplasm of body of pancreas 3 Metastasis to liver 08/30/2023 Encounter for antineoplastic chemotherapy 2022 History of carcinoma of pancreas 07/18/2023 Post-viral cough syndrome 07/09/2023 Upper airway cough syndrome 07/09/2023 History of 2019 novel coronavirus disease (COVID -19) 10/16/2022 Coronary artery disease invo lving kaw coronary artery of kaw heart without angina pectoris 08/20/2022 Overview: Severe [...] lipids WNL Factor V+heteroqygous. 04/10 colon-Dr Case [facility] 2 polyps 1 tubular adenoma. Kevin 6y 2013 sleep study [facility] WNL [address] [facility] [...] as of this encounter (statuses as of 12/23/2023) Resolved Problems Problem Noted Date Diagnosed Date [...] WNL, antiphos lipids WNL Factor V+heteroqygous. FM AI-ECBH-SAEDP DIS NEC documented as of this encounter (statuses as of 12/23/2023) Immunizations Name Administration Dates Next Due COVID-19 mRNA, LNP-s, No Pre serve, 2-Dose Series ([employer]) 01/13/2022,07/21/2021,02/01/2021,12/26 COVID-19, MRNA-LNP, 23-24, P F, 30 MCG/0.3 mL, 12 YRS AND ABOVE, IM ([facility]) 09/12/2023 Covid-19, Mrna, Lnp-s, Pf, B ivalent, 30 Mcg, IM, 12 yrs and above ([employer]) 08/16/2022 HEP A - Hepatitis A (Adult [...] encounter Miscellaneous Notes * Telephone Encounter - Nina Gibson OSA - 12/23/2023 1:40 PM EST Pt stated that he will call back to schedule. He is not interested in scheduling right now. * Telephone Encounter - Del Rodriguez OSA - 07/18/2023 10:21 AM EDT Pt prefers to have his colonoscopy in February. Please call when schedule is released, ph# in chart isgood. documented in this encounter Plan of Treatment Upcoming Encounters Date Type Department Care Team (Latest Contact Info) Description 12/24/2023 10:30 AM EST Hem/Onc Treatment Hematology/Oncolog y Treatment, [place] [address] [place] [address] Rehana, Chair 11 Hem Onc [address] [place] [address] Encounter for antineoplastic chemotherapy*; 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); 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) 01/06/2024 10:45 AM EST Office Visit Dermatology [facility] [address] [place] [address] Cal Jernigan MD 200 [facility] [address] [place] [address] 01/27/2024 11:00 AM EST Imaging Radiology [facility] [address] [address] 07/20/2024 10:15 AM EDT Office Visit Dermatology [facility] [address] [place] [address] Cal Jernigan MD 200 [facility] [address] [place] [address] 07/21/2024 1:45 PM EDT Office Visit Hematology/Oncolog y [facility] [place] [address] [place] [address] Dakota Armando MD [address] [place] [address] 07/24/2024 11:40 AM EDT Office Visit Family Practice [facility] 132 [place] [address] Sergio Barriga MD 132 [place] [address] Scheduled Procedures Name Priority Associated Diagnoses Date/Ti [...] encounter Medical Devices Implanted Type Area Manager Med Surg Device Identifier Shelf Expiration Date Model / Serial / Lot Stent Viabil Biliary [id number] - [id number] Implanted:Qty : 1 on 07/17/2021 by Guillermo Jones DO at ENDOSCOPY [facility] [employer] [id number] 03/04/2024 [id number] / [id number] / [id number] Port Implant W/8f Poly Cath - [id number] Implanted:Qty : 1 on 09/13/2023 by Gary Rodriguez DO at OR [facility] Right: Chest CR BARD : PERIPHERAL VASCULAR [id number] 04/24/2025 [id number] / / [id number] documented as of this encounter Advance Directives Documents on File Type Date Recorded Patient Train Gateman Expl anation Advance Directives and Living Will [...] Agen t (per Health Care Power of Finish Machine Tender document) [email or web address] First Alternate Health Care Agent (per Health Care Power of Finish Machine Tender document) [email or web address] Care Teams Manager People Relationship Specialty Start Date End Date Sergio Barriga MD [address] [place] [address] PCP - General Family Medicine 08/07/19 documented as of this encounter
--- OUTSIDE RECORDS SUMMARY | 2024-04-19 00:09 | External Medical Summary | Summary of Care ---
Author Name Unknown Organization [facility] Address [address] [place] [address] Phone [phone] Care Team Providers Care Counterintelligence Analyst Name Role Phone Sergio Barriga MD Primary Care Provider + Encounter Details Date Type Department Care Team (Late st Contact Info) Description 12/23/2023 Orders Only [facility] [address] [place] [place] [address] Dakota Armando MD 200 [facility] [place], [place] [address] Allergies Active Allergy Reactions Criticality Noted Date [...] mouth in the morning. 0 Active Pancrelipase (Adx-Sque-Dpnu) 10867-49993 UNIT Oral Capsule Delayed Release Particles (Creon 25366) 2 cap with meals, 1 with larger [...] AT BEDTIME 90 Tablet 3 12/19/2023 Active Hospital, Clinic, or Other Facility Administered Medication Ordered Dose Route Frequency Start Date End Date Status Fluorouracil (5-Fu) 4,300 mg in NSS 138 mL infusion 4300 mg IV CONTINUOUS 12/23/2023 12/25/2023 Active documented as of this encounter (statuses [...] WNL, antiphos lipids WNL Factor V+heteroqygous. FM NI-TBFC-AENCH DIS NEC documented as of this encounter (statuses as of 12/23/2023) Immunizations Name Administration Dates Next Due COVID-19 mRNA, LNP-s, No Pre serve, 2-Dose Series ([employer]) 01/13/2022,07/21/2021,02/01/2021,01/04 COVID-19, MRNA-LNP, 23-24, P F, 30 MCG/0.3 mL, 12 YRS AND ABOVE, IM ([employer]) 09/12/2023 Covid-19, Mrna, Lnp-s, Pf, B ivalent, 30 Mcg, IM, 12 yrs and above ([employer]) 08/16/2022 HEP A - Hepatitis A (Adult [...] AM EST Hem/Onc Treatment Hematology/Oncolog y Treatment, [place] [address] [place] [address] Rehana, Chair 11 Hem Onc [facility] [address] [place] [address] Encounter for antineoplastic chemotherapy*; 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); Malignant neoplasm of body of pancreas (HCC) 01/06/2024 10:45 AM EST Office Visit Dermatology [facility] [place] [address] [place] [address] [address] Cal Jernigan MD [address] [place] [address] [place] [address] 01/27/2024 11:00 AM EST Imaging Radiology [facility] 1st [facility] [place] [facility] [address] 07/20/2024 10:15 AM EDT Office Visit [facility] [place] [address] [place] [address] Cal Jernigan MD [address] [place] [address] 07/21/2024 1:45 PM EDT Office Visit Hematology/Oncolog y [facility] [place] [address] [place] [address] [address] Dakota Armando MD [address] [place] [address] 07/24/2024 11:40 AM EDT Office Visit Family Practice [facility] [address] [place] [address] Sergio Barriga MD [address] [place] [address] Scheduled Procedures Name Priority Associated Diagnoses Date/Ti [...] this encounter Medical Devices Implanted Type Area Enamel Burner Device Identifier Shelf Expiration Date Model / Serial / Lot Stent Viabil Biliary [id number] - [id number] Implanted:Qty : 1 on 07/17/2021 by Guillermo Jones DO at [facility]OSCOPY [facility] [employer] [id number] 03/04/2024 [id number] / [id number] / [id number] Port Implant W/8f Poly Cath - [id number] Implanted:Qty : 1 on 09/13/2023 by Gary Rodriguez DO at OR [facility] Right: Chest CR BARD : PERIPHERAL VASCULAR [id number] 04/24/2025 [id number] / / [id number] documented as of this encounter Advance Directives Documents on File Type Date Recorded Patient Video Game Animator Expl anation Advance Directives and Living Will 10/23/2022 4:43 PM Virginie HansenlLibhartLivingWiynoas .PDF Latest Code Status on File Code Status Date Activated Date Inactivated Comments Full Code 07/16/2021 10:04 AM 07/18/2021 6:28 PM This order reflects the patients wishes and were consensually agreed upon. Healthcare Agents on File Name Relationship Healthcare Agent Relationship Communication Virginie Cramer Spouse Health Care Agen t (per Health Care Power of Script Developer document) [email or web address] Temo Bela Sibling First Alternate Health Care Agent (per Health Care Power of Script Developer document) Care Teams Counterintelligence Analyst Relationship Specialty Start Date End Date Sergio Barriga MD [address] [place] [address] PCP - General Family Medicine 08/07/19 documented as of this encounter
--- OUTSIDE RECORDS SUMMARY | 2024-04-19 00:09 | External Medical Summary | Summary of Care ---
Author Name Unknown Organization [facility] Address [address] [place] [address] Phone [phone] Care Team Providers Care Deputy Prosecuting Attorney Name Role Phone Sergio Barriga MD Primary Care Provider + Reason for Referral * Precert (Within 10 days (routine)) - Authorized Specialty Diagnoses / Procedures Referred By Linda hu Referred To Contact Radiology Diagnoses 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) Procedures CT CHEST/ABDOMEN/PELVIS WITH IV CONTRAST WITH ORAL CONTRAST Dakota Armando MD [address] [place] [address] Referral ID Status Reason Start Date Expiration Date V isits Requested Visits Authorized [id number] Authorized 12/17/2023 999 999 Reason for Visit * Reason Comments Re-Check Chemo recheck Encounter Details Date Type Department Care Team (Late st Contact Info) Description 12/17/2023 8:45 AM EST Office Visit Hematology/Oncology [facility] [address] [place] [address] [address] Dakota Armando MD [address] [place] [address] [place] [address] Malignant neoplasm of body of pancreas (HCC)*; 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) Allergies Active Allergy Reactions Criticality Noted Date Comments Lisinopril Cough Low 08/07/2019 documented as of this encounter (statuses as of 12/17/2023) Medications Medication Sig Dispensed Refills Start Date End Date Status Boost 100 Calorie Smart Oral Liquid Take by mouth. 0 Act miley Multi Vitamin Daily Oral Tablet Take by mouth. 0 Act miley Aspirin 81 MG Oral Tablet Delayed Release Take 1 Tablet by mouth in the morning. 0 Active Pancrelipase (Qct-Wqly-Tolf) 76291-56728 UNIT Oral Capsule Delayed Release Particles (Creon 30687) 2 cap with meals, 1 with larger [...] as of this encounter (statuses as of 12/17/2023) Active Problems Problem Noted Date Diagnosed Date [...] sleep study [facility] WNL [address] [facility] [...] as of this encounter (statuses as of 12/17/2023) Resolved Problems Problem Noted Date Diagnosed Date [...] WNL, antiphos lipids WNL Factor V+heteroqygous. FM VQ-HZBE-LRIHI DIS NEC documented as of this encounter (statuses as of 12/17/2023) Immunizations Name Administration Dates Next Due COVID-19 mRNA, LNP-s, No Pre serve, 2-Dose Series (In[employer]) 01/13/2022,07/21/2021,02/01/2021,01/04 COVID-19, MRNA-LNP, 23-24, P F, 30 MCG/0.3 mL, 12 YRS AND ABOVE, IM ([employer]Chip-ComirnatAstech) 09/12/2023 Covid-19, Mrna, Lnp-s, Pf, B ivalent, [...] Progress Notes * Dakota Armando MD - 12/17/2023 8:45 AM EST Hematology/Oncology Outpatient Clinic [place] [address] Name: Rafael Cramer Date: 11/04/2023 CHIEF COMPLAINT: [...] on 08/07/2021 at [facility]. -He completed gemcitabine and Xeloda combination between [...] on 08/07/2021 at [facility]. 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 -T2 [...] received 2nd opinion from medical oncologist from [place] who agreed with treatment plan. Also recommending after 12 treatments with FOLFIRINOX, he may consider the clinical trial of G12C inhibitor. He will need port for upcoming chemotherapy Would like to send the NGS checkup on the liver biopsy specimen ( done at [place]). Component Latest Ref Rng 09/30/2023 CA 19-9 [...] Chronic insomnia 05/18/2019 Coronary artery disease involving santee sioux coronary artery of [place] sioux heart without angina pectoris 08/20/2022 Severe noted on 08/16 CT chest. Deep vein thrombosis (DVT) of lower extremity (HCC) 05/12/201901/13 dx date After 6h drbert. 04/12 recl nearly occlusive [...] Bilateral Dr Mix COLONOSCOPY 04/02/2017 Dr Eller [facility] 2 polyps 1 tubular adenoma. COLONOSCOPY, DIAGNOSTIC (RECTUM) 09/14/2022 diverticulosis, fair prep, repeat 1 yr / [facility] COLORECTAL CANCER SCREEN;W/FLE 2006 EGD, FLEXIBLE,W/ENDOSCOPIC US 07/12/2021 pancreatic mass, GB sludge, CBD dilation, abnormal lymph nodes / [facility] EGD, W/ENDOSCOPIC US N/A 07/17/2021 ESOPHAGOGASTRODUODENOSCOPY (EGD), FLEXIBLE, TRANSORAL, ENDOSCOPIC ULTRASOUND performed by Guillermo Jones DO at ENDOSCOPY [facility] ERCP 07/12/2021 ERCP, DIAGNOSTIC, SPECIMEN COLLECTION N/A 07/17/2021 ENDOSCOPIC RETROGRADE CHOLANGIOPANCREATOGRAPHY (ERCP) DIAGNOSTIC performed by Guillermo Jones DO at[facility]OS[facility] INSER TUNN ACC DEV;5 YRS/OLDER Right 09/13/2023 INSERT TUNNELED CENTRAL VENOUS ACCESS WITH SUBQ PORT performed by Gary Rodriguez DO at OR [facility] IR BIOPSY 08/21/2023 KNEE ARTHROSCOPY/DEBRIDEMENT Left 07/12/[address] Zhu left partial medical meniscectomy & chondroplasty. REMOVE PANCREAS, PARTIAL (WHIPPLE) 08/07/2021 [place]. Robot assisted. Dr Mike Westbrook. REMOVE TONSILS & ADENOIDS, UNDER 12 Tonsillectomy/Adenoids,<12 Y/O SHOULDER ARTHROSCOPY/DEBRIDEMENT Left 08/31/2014 Dr Zhu +biceps tenotomy debride labrum, subacromial decompression & distal clavicle excision. 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 Tobacco Use Smoking status: Never Smokeless tobacco: Never Vaping Use Vaping Use: Never used Substance and Sexual Activity Alcohol use: Yes Comment: 4 drinks/ day had stopped /[place] 2020, now rare. Drug use: Yes Frequency: 5.0 times per week Types: Marijuana Comment: oral caps. for appetite, relaxation. Sexual activity: Yes Partners: Female Comment: . 2 stepchildren. [facility] & [place]. no grandkids Other Topics Concern Not on file Social History Narrative Likes gardening. Cabin in [facility]. Likes to weights, walking. Active [place] Festival [...] Tablet by mouth in the morning. Pancrelipase (Dgf-Ybyc-Tgek) 08572-99055 UNIT Oral Capsule Delayed Release Particles (Creon 43645) 2 cap with meals, 1 with larger [...] SpO2 98% | BMI 19.89 kg/m | BSA1.72 m PHYSICAL EXAM: ECOG: Performance Status 1 [...] done on 12/09/2023: -WBC 7600, H&H of 36, Platelet count 031680 -BUN/Creat: 16/1.0, Calcium 9.3, normal LFT. CA [...] His previous CT scan was done at [place], he will bring copy for the comparison. [...] Team (Late st Contact Info) Description 12/23/2023 9:30 AM EST Laboratory Laboratory [facility] [place] [address] [place] [id number] Rehana, Lab Scen[address] [place] [address] 12/24/2023 10:30 AM EST Hem/Onc Treatment Hematology/Oncology Treatment, [place] [address] [place] [address] Rehana, Chair 11 Hem Onc [facility] [address] [place] [address] 01/06/2024 10:45 AM EST Office Visit Dermatology [facility] [place] [address] [place] [address] Cal Jernigan MD [address] [place] [address] 07/20/2024 10:15 AM EDT Office Visit Dermatology [facility] [place] [address] [place] [address] Cal Jernigan MD [address] [place] [address] 07/21/2024 1:45 PM EDT Office Visit Hematology/Oncology [facility] [place] [address] [place] [address] Dakota Armando MD [address] [place] [address] 07/24/2024 11:40 AM EDT Office Visit Family Practice [facility] [address] [place] [address] Sergio Barriga MD [address] [place] [address] Scheduled Orders Name Type Priority Associated Diagnoses Orde r Schedule CT CHEST/ABDOMEN/PELVIS WITH IV CONTRAST WITH ORAL CONTRAST Medical Imaging Routine 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) Expected: 12/17/2023, Expires: 12/17/2024 Scheduled Procedures Name Priority Associated Diagnoses Date/Ti [...] 09/14/2022, 09/14/2022, 04/02/2017 Hepatitis B Completed 05/27/2023, 0 01/2023, 10/25/2022 Influenza Vaccine (FLU shot) Completed 09/03/2023, 08/13/2022, 08/30/2021, Additional history exists COVID-19 Vaccine Completed 09/12/2023, , 01/13/2022, Additional history exists GARDASIL-HPV IMMUNIZATION SERIES Aged Out No longer eligible based on patient's age to complete this topic MENINGOCOCCAL (MENACTRA/MENVEO) Aged Out No longer eligible based on patient's age to complete this topic documented as of this encounter Medical Devices Implanted Type Area Votator Machine Operator Device Identifier Shelf Expiration Date Model / Serial / Lot Stent Viabil Biliary [id number] - [id number] Implanted:Qty : 1 on 07/17/2021 by Guillermo Jones DO at [place]OS[place] [facility] [employer] [id number] 03/04/2024 [id number] / [id number] Port Implant W/8f Poly Cath - [id number] Implanted:Qty : 1 on 09/13/2023 by Gary Rodriguez DO at OR [facility] Right: Chest CR BARD : PERIPHERAL VASCULAR [id number] 04/24/2025 [id number] / / [id number] documented as of this encounter Visit Diagnoses Diagnosis Malignant neoplasm of body of pancreas (HCC)- Primary Malignant neoplasm of body of pancreas 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 documented in this encounter Advance Directives Documents on File Type Date Recorded Patient Contracts Officer Expl anation Advance Directives and Living [...] t (per Health Care Power of Computer Repair Instructor document) .[employer] Temo Cramer Sibling First Alternate Health Care Agent (per Health Care Power of Computer Repair Instructor document) [email or web address] Care Teams Deputy Prosecuting Attorney Relationship Specialty Start Date End Date Sergio Barriga MD [address] [place] [address] PCP - General Family Medicine 08/07/19 documented as of this encounter"
--- OUTSIDE RECORDS SUMMARY | 2024-04-19 00:09 | External Medical Summary | Summary of Care ---
Author Name Unknown Organization [facility] Address [address] [place] [address] Phone [phone] Care Team Providers Care Modeling Director Name Role Phone Sergio Walter MD Primary Care Provider + Reason for Visit * Reason Comments eRx-Medication Refill Encounter Details Date Type Department Care Team (Late st Contact Info) Description 12/19/2023 Refill Family Practice [facility] [address] [place] [address] Sergio Walter MD [address] [facility] [place] [address] Persistent insomnia Allergies Active Allergy Reactions Criticality Noted Date Comments Lisinopril Cough Low 08/07/2019 documented as of this encounter (statuses as of 12/19/2023) Medications Medication Sig Dispensed Refills Start Date End Date Status Boost 100 Calorie Smart Oral Liquid Take by mouth. 0 Active Multi Vitamin Daily Oral Tablet Take by mouth. 0 Active Aspirin 81 MG Oral Tablet Delayed Release Take 1 Tablet by mouth in the morning. 0 Active Pancrelipase (Ucw-Wtck-Rgjq) 58279-20299 UNIT Oral Capsule Delayed Release Particles (Creon 44057) 2 cap with meals, 1 with larger [...] 09/25/2023 Active ALPRAZolam 1 MG Oral Tablet (xaNAX)Indicati ons:Chronic insomnia TAKE ONE TABLET BY MOUTH AT BEDTIME NEEDED FOR SLEEP 30 Tablet 0 11/22/2023 Active traZODone HCl 100 MG Oral Tablet (Desyrel)Indica tions:Persisten t insomnia TAKE 1 TABLET BY MOUTH AT BEDTIME 90 Tablet 3 12/19/2023 Active traZODone HCl 100 MG Oral Tablet (Desyrel)Indica tions:Persisten t insomnia TAKE 1 TABLET BY MOUTH AT BEDTIME 90 Tablet 2 04/08/2023 4 Discontinued documented as of this encounter (statuses as of 12/19/2023) Active Problems Problem Noted Date Diagnosed Date [...] lipids WNL Factor V+heteroqygous. 04/10 colon-Dr Eller [facility] 2 polyps 1 tubular adenoma. Kevin 6y 2013 sleep study [facility] WNL [address] Elena [facility] Essential hypertension with goal blood pressure less [...] as of this encounter (statuses as of 12/19/2023) Resolved Problems Problem Noted Date Diagnosed Date [...] WNL, antiphos lipids WNL Factor V+heteroqygous. FM OR-QFAW-PMCKX DIS NEC documented as of this encounter (statuses as of 12/19/2023) Immunizations Name Administration Dates Next Due COVID-19 mRNA, LNP-s, No Pre serve, 2-Dose Series (LIBCAST) 01/13/2022,07/21/2021,02/01/2021,01/04 COVID-19, MRNA-LNP, 23-24, P F, 30 MCG/0.3 mL, 12 YRS AND ABOVE, IM ([facility] 09/12/2023 Covid-19, Mrna, Lnp-s, Pf, B [...] encounter Miscellaneous Notes * Telephone Encounter - Rosendo Stallings [facility] - 12/19/2023 7:39 PM EST Signed Prescriptions: Disp Refills traZODone HCl 100 MG Oral Tablet (Desyrel) 90 Tab*3 Sig: TAKE 1 TABLET BY MOUTH AT BEDTIMEAuthorizing Provider: SERGIO WALTER User: ROSENDO STALLINGS documented in this encounter Plan of Treatment Upcoming Encounters Date Type Department Care Team (Late st Contact Info) Description 12/23/2023 9:30 AM EST Laboratory Laboratory [facility] [place] [address] [place] [phone] [place] [address] 12/24/2023 10:30 AM EST Hem/Onc Treatment Hematology/Oncology Treatment, [place] [address] [place] [address] Rehana, Chair 11 Hem Onc [facility] [address] [facility] [place] [address] 01/06/2024 10:45 AM EST Office Visit Dermatology [facility] [address] [place] [address] Cal Jernigan MD 200 [facility] [place] [address] 01/27/2024 11:00 AM EST Imaging Radiology [address] [facility] [place] [address] 07/20/2024 10:15 AM EDT Office Visit Dermatology [facility] [address] [place] [address] Cal Jernigan MD 200 [facility] [place] [address] 07/21/2024 1:45 PM EDT Office Visit Hematology/Oncology [facility] [address] [place] [address] Dakota Armando MD 200 [facility] [place], [place] [address] 07/24/2024 11:40 AM EDT Office Visit Family Practice [facility] 132 [facility] [place] [address] Sergio Walter MD 132 [facility] [place] [address] Scheduled Procedures Name Priority Associated Diagnoses Date/Ti [...] encounter Medical Devices Implanted Type Area Dog Pound Attendant Device Identifier Shelf Expiration Date Model / Serial / Lot Stent Viabil Biliary [id number] - [id number] Implanted:Qty : 1 on 07/17/2021 by Guillermo Jones DO at ENDOSCOPY [facility] [employer] REYNALDO [id number] 03/04/2024 [id number] / [id number] / [id number] Port Implant W/8f Poly Cath - [id number] Implanted:Qty : 1 on 09/13/2023 by Gary Rodriguez DO at OR [facility] Right: Chest CR BARD : PERIPHERAL VASCULAR [id number] 04/24/2025 [id number] / / [id number] documented as of this encounter Visit Diagnoses Diagnosis Persistent insomnia Persistent disorder of initiating or maintaining sleep documented in this encounter Advance Directives Documents on File Type Date Recorded Patient Hourly Sales Staff Expl anation Advance Directives and Living Will [...] Agen t (per Health Care Power of Main Line Station Engineer document) [email or web address] Sibling First Alternate Health Care Agent (per Health Care Power of Main Line Station Engineer document) [email or web address] Care Teams Modeling Director Relationship Specialty Start Date End Date Sergio Walter MD [address] [place] [address] PCP - General Family Medicine 08/07/19 documented as of this encounter
--- OUTSIDE RECORDS SUMMARY | 2024-04-19 00:09 | External Medical Summary ---
Author Name Unknown Address Unknown Organization K09:[facility] [address] [place] [address] Laboratory Report Ordering Provider Test Date Status JOSE ROY 12/23/2023 09:26:55 Final Observation Date Value Abnormality Reference (Units ) Status BUN 12/23/2023 09:26:55 16 6-20 (mg/dL) Final Creatinine 12/23/2023 09:26:55 1.0 0.6-1.2 (mg/dL) Final Glomerular filtration rate/1.73 sq M.predicted [Volume Rate/Area] in Serum, Plasma or Blood by Creatinine-based formula (CKD-EPI) 12/23/2023 09:26:55 77 >=60 (mL/min) Final eGFR is calculated based on the CKD-EPI 2020 equation SODIUM 12/23/2023 09:26:55 138 135-146 (m mol/L) Final Potassium 12/23/2023 09:26:55 3.7 3.5-5.1 (m mol/L) Final Cl 12/23/2023 09:26:55 99 98-107 (mm ol/L) Final CO2 12/23/2023 09:26:55 28 22-32 (mmo l/L) Final Anion gap 12/23/2023 09:26:55 11 7-15 (mmol /L) Final Glucose 12/23/2023 09:26:55 182 Above high normal 70 -120 (mg/dL) Final Albumin 12/23/2023 09:26:55 3.9 3.8-5.0 (g /dL) Final AST (Aspartate aminotransferase) 12/23/2023 09:26:55 22 10-50 (U/L) Fin al Alk Phos 12/23/2023 09:26:55 169 Above high normal 35 -130 (U/L) Final Bilirubin, Total 12/23/2023 09:26:55 0.8 <=1 .2 (mg/dL) Final Calcium 12/23/2023 09:26:55 9.6 8.4-10.2 ( mg/dL) Final Protein 12/23/2023 09:26:55 7.0 6.0-8.3 (g /dL) Final ALT (Alanine aminotransferase) 12/23/2023 09:26:55 24 10-50 (U/L) Silverio baker Performing Location [facility] [address]- [address] [place] [address]
--- OUTSIDE RECORDS SUMMARY | 2024-04-19 00:09 | External Medical Summary ---
Author Name Unknown Address Unknown Organization K09:[facility] [place] [address] Laboratory Report Ordering Provider Test Date Status JOSE ROY 12/23/2023 09:26:55 Final Observation Date Value Abnormality Reference (Units ) Status WBC, Total 12/23/2023 09:26:55 13.95 Above high normal 4 .00-10.80 (K/uL) Final RBC 12/23/2023 09:26:55 4.13 4.50-5.25 (M/uL) Final Hemoglobin 12/23/2023 09:26:55 11.4 Below low normal 14 .0-16.8 (g/dL) Final HCT 12/23/2023 09:26:55 37.1 Below low normal 40. 0-48.4 (%) Final MCV 12/23/2023 09:26:55 89.8 82.0-99.5 (fL) Final MCH 12/23/2023 09:26:55 27.6 27.0-34.0 (pg) Final MCHC 12/23/2023 09:26:55 30.7 32.0-36.0 (g/dL) Final RDW 12/23/2023 09:26:55 21.4 11.5-15.5 (%) Final Platelets 12/23/2023 09:26:55 196 140-400 (K /uL) Final MPV 12/23/2023 09:26:55 10.2 6.6-11.1 ( fL) Final Performing Location [facility] [place] [address]
--- OUTSIDE RECORDS SUMMARY | 2024-04-19 00:09 | External Medical Summary ---
Author Name Unknown Address Unknown Organization K09:[facility] [place] [address] Laboratory Report Ordering Provider Test Date Status JOSE ROY 12/23/2023 09:26:55 Final Observation Date Value Abnormality Reference (Units ) Status SYNC LEUKOCYTES IN BLOOD BY AUTOMATED COUNT 12/23/2023 09:26:55 13.95 Above high normal 4.00-10.80 (K/uL) Final Segs 12/23/2023 09:26:55 81.8 Above high normal 40.0-75.0 (%) Final Lymphs % 12/23/2023 09:26:55 7.8 Below low normal 18.0-42.0 (%) Final Monos 12/23/2023 09:26:55 7.4 1.0-11.0 (%) Final Eosinophils 12/23/2023 09:26:55 2.8 0.0-6.0 (%) Final Basos 12/23/2023 09:26:55 0.2 0.0-2.0 (%) Final Absolute Segs 12/23/2023 09:26:55 11.41 Above high normal 1.80-7.70 (K/uL) Final Lymphs, absolute 12/23/2023 09:26:55 1.09 1.00-4.80 (K/ul) Final Monos, Abs 12/23/2023 09:26:55 1.03 0.00-1.10 (K/uL) Final Eos, Abs 12/23/2023 09:26:55 0.39 0.00-0.70 (K/uL) Final Basos, Abs 12/23/2023 09:26:55 0.03 0.00-0.20 (K/uL) Final Performing Location [facility] [place] [address]
--- OUTSIDE RECORDS SUMMARY | 2024-04-19 00:09 | External Medical Summary ---
Author Name Unknown Address Unknown Organization K01:[facility] - [address] [place] [address] Laboratory Report Ordering Provider Test Date Status KIRILL,GARCIA 12/23/2023 09:26:55 Final Observation Date Value Abnormality Reference (Units ) Status Cancer Ag 19-9 12/23/2023 09:26:55 461.2 Above high norm al <35.0 (U/mL) Final Performing Location [facility] - [address] [place] [address]
--- OUTSIDE RECORDS SUMMARY | 2024-04-19 00:09 | External Medical Summary | Summary of Care ---
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 0 Active Pancrelipase (Bug-Rfjk-Yvbz) 78224-08976 UNIT Oral Capsule Delayed Release Particles (Creon 14184) 2 cap with meals, 1 with larger [...] WNL Factor V+heteroqygous. 04/10 colon-Dr Eller [facility] 2 polyps 1 tubular adenoma. [...] WNL, antiphos lipids WNL Factor V+heteroqygous. FM FG-PUTS-LHROR DIS NEC documented as of this encounter (statuses as of 12/23/2023) Immunizations Name Administration Dates Next Due COVID-19 mRNA, LNP-s, No Pre serve, 2-Dose Series (AeternusLED) 01/13/2022,07/21/2021,02/01/2021,01/04 COVID-19, MRNA-LNP, 23-24, P F, 30 MCG/0.3 mL, 12 YRS AND ABOVE, IM (Imaging3-ComirnatWebjam) 09/12/2023 Covid-19, Mrna, Lnp-s, Pf, B ivalent, 30 Mcg, IM, 12 yrs and above (AeternusLED) 08/16/2022 HEP A - Hepatitis A (Adult [...] Care Team (Late st Contact Info) Description 12/24/2023 10:30 AM EST Hem/Onc Treatment Hematology/Oncology Treatment, [place] [address] [place] [address] [place], Chair 11 Hem Onc [place] [address] [place] [address] 01/06/2024 10:45 AM EST Office Visit Dermatology [facility] [place] [address] [place] [address] Cal Jernigan MD [address] [place] [address] 01/27/2024 11:00 AM EST Imaging Radiology [address], [address] [address] 07/20/2024 10:15 AM EDT Office Visit Dermatology [facility] Reh[place] [address] [place] [address] Cal Jernigan MD [address] [place] [address] 07/21/2024 1:45 PM EDT Office Visit Hematology/Oncology [facility] [place] [address] [place] [address] Dakota Armando MD [address] [place] [address] 07/24/2024 11:40 AM EDT Office Visit Family Practice [facility] [address] [place] [address] Sergio Barriga MD [address] [place] [address] Pending Results Name Type Priority Associated Diagnoses Date /Time COMPREHENSIVE METABOLIC PANEL Lab STAT 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) 12/23/2023 9:26 AM EST CA 19-9 Lab Routine Encounter for antineoplastic chemotherapy 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) 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) 12/23/2023 9:26 AM EST Scheduled Procedures Name Priority Associated [...] this encounter Medical Devices Implanted Type Area Activity Manager Device Identifier Shelf Expiration Date Model / Serial / Lot Stent Viabil Biliary [id number] - [id number] Implanted:Qty : 1 on 07/17/2021 by Guillermo Jones DO at [place]OS[place] [facility] [place] [employer] [id number] 03/04/2024 [id number] / [id number] Port Implant W/8f Poly Cath - [id number] Implanted:Qty : 1 on 09/13/2023 by Gary Rodriguez DO at OR [facility] Right: Chest CR BARD : PERIPHERAL VASCULAR [id number] 04/24/2025 [id number] / / [id number] documented as of this encounter Procedures Procedure Name Priority Date/Time Associated Diagnosis Comments DIFFERENTIAL, AUTOMATED STAT 12/23/2023 9:26 AM EST 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) CBC STAT 12/23/2023 9:26 AM EST 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) CBC STAT 12/23/2023 9:26 AM EST 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) documented in this encounter Results * (ABNORMAL) DIFFERENTIAL, AUTOMATED (12/23/2023 9:26 AM EST) WBC 13.95(H) 4.00 - 10.80 K/uL 12/23/2023 9:35 AM EST [facility] 56-02 Neutrophils % 81.8(H) 40.0 - 75.0 % 12/23/2023 9:35 AM EST [facility] 56-02 Lymphocytes % 7.8(L) 18.0 - 42.0 % 12/23/2023 9:35 AM EST [facility] 56-02 Monocytes % 7.4 1.0 - 11.0 % 12/23/2023 9:35 AM EST [facility] 56-02 Eosinophils % 2.8 0.0 - 6.0 % 12/23/2023 9:35 AM [facility] 56 Basophils % 0.2 0.0 - 2.0 % 12/23/2023 9:35 AM [facility] 56 Absolute Neutrophils 11.41(H) 1.80 - 7.70 K/uL 12/23/2023 9:35 AM [facility] 56 Absolute Lymphocytes 1.09 1.00 - 4.80 K/ul 12/23/2023 9:35 AM [facility] 56 Absolute Monocytes 1.03 0.00 - 1.10 K/uL 12/23/2023 9:35 AM [facility] 56 Absolute Eosinophils 0.39 0.00 - 0.70 K/uL 12/23/2023 9:35 AM [facility] 56 Absolute Basophils 0.03 0.00 - 0.20 K/uL 12/23/2023 9:35 AM [facility] Blood Venous blood specimen / Unknown Venipuncture / Unknown 12/23/2023 9:26 AM EST 12/23/2023 9:26 AM EST Dakota Armando MD LAB BLOOD ORDERABLES [facility] [address] [place] [id number] * (ABNORMAL) CBC (12/23/2023 9:26 AM EST) WBC 13.95(H) 4.00 - 10.80 K/uL 12/23/2023 9:35 AM [facility] 56 RBC 4.13 4.50 - 5.25 M/uL 12/23/2023 9:35 AM [facility] HGB 11.4(L) 14.0 - 16.8 g/dL 12/23/2023 9:35 AM [facility] 56 HCT 37.1(L) 40.0 - 48.4 % 12/23/2023 9:35 AM [facility] 56 MCV 89.8 82.0 - 99.5 fL 12/23/2023 9:35 AM EST [facility] 56- MCH 27.6 27.0 - 34.0 pg 12/23/2023 9:35 AM EST [facility] 56- MCHC 30.7 32.0 - 36.0 g/dL 12/23/2023 9:35 AM EST [facility] 56- RDW 21.4 11.5 - 15.5 % 12/23/2023 9:35 AM EST [facility] 56- PLT 196 140 - 400 K/uL 12/23/2023 9:35 AM EST [facility] 56- MPV 10.2 6.6 - 11.1 fL 12/23/2023 9:35 AM [facility] 56 Blood Venous blood specimen / Unknown Venipuncture / Unknown 12/23/2023 9:26 AM EST 12/23/2023 9:26 AM EST Dakota Armando MD LAB BLOOD ORDERABLES Performing Organization Address City/State/[facility] Co de Phone Number [facility] [address] [place] [address] documented in this encounter Visit Diagnoses Diagnosis 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) Malignant neoplasm of body of pancreas 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 Encounter for antineoplastic chemotherapy documented in this encounter Advance Directives Documents on File Type Date Recorded Patient Salesperson Meats Expl anation Advance Directives and Living Will [...] Agen t (per Health Care Power of Analyst document) [email or web address] [email or web address] Sibling First Alternate Health Care Agent (per Health Care Power of Analyst document) [email or web address] Care Teams Career Based Intervention Coordinator Relationship Specialty Start Date End Date Sergio Barriga MD [address] [place] [address] PCP - General Family Medicine 08/07/19 documented as of this encounter
--- OUTSIDE RECORDS SUMMARY | 2024-04-19 00:10 | External Medical Summary ---
Author Name Unknown Address Unknown Organization K09:[facility] 56-47 [address] [place] [address] Laboratory Report Ordering Provider Test Date Status JOSE ROY 12/09/2023 09:41:40 Final Observation Date Value Abnormality Reference (Units ) Status BUN 12/09/2023 09:41:40 16 6-20 (mg/dL) Final Creatinine 12/09/2023 09:41:40 1.0 0.6-1.2 (mg/dL) Final Glomerular filtration rate/1.73 sq M.predicted [Volume Rate/Area] in Serum, Plasma or Blood by Creatinine-based formula (CKD-EPI) 12/09/2023 09:41:40 82 >=60 (mL/min) Final eGFR is calculated based on the CKD-EPI 2020 equation SODIUM 12/09/2023 09:41:40 138 135-146 (m mol/L) Final Potassium 12/09/2023 09:41:40 4.3 3.5-5.1 (m mol/L) Final Cl 12/09/2023 09:41:40 101 98-107 (mm ol/L) Final CO2 12/09/2023 09:41:40 30 22-32 (mmo l/L) Final Anion gap 12/09/2023 09:41:40 7 7-15 (mmol /L) Final Glucose 12/09/2023 09:41:40 112 70-120 (mg /dL) Final Albumin 12/09/2023 09:41:40 3.8 3.8-5.0 (g /dL) Final AST (Aspartate aminotransferase) 12/09/2023 09:41:40 27 10-50 (U/L) Final Alk Phos 12/09/2023 09:41:40 118 35-130 (U/ L) Final Bilirubin, Total 12/09/2023 09:41:40 0.4 <=1 .2 (mg/dL) Final Calcium 12/09/2023 09:41:40 9.3 8.4-10.2 ( mg/dL) Final Protein 12/09/2023 09:41:40 6.9 6.0-8.3 (g /dL) Final ALT (Alanine aminotransferase) 12/09/2023 09:41:40 26 10-50 (U/L) Final Performing Location [facility] [address]- [address] [place] [address]
--- OUTSIDE RECORDS SUMMARY | 2024-04-19 00:10 | External Medical Summary | Summary of Care ---
Author Name Unknown Organization [facility] Address [address] [place] [address] Phone [phone] Care Team Providers Care Fork Lift Truck Operator Name Role Phone Sergio Barriga MD Primary Care Provider + Reason for Visit * Reason Onset Date Comments Information 12/09/2023 Encounter Details Date Type Department Care Team (Late st Contact Info) Description 12/09/2023 Telephone Hematology/Oncology Treatment, [place] [address] [place] [address] Dakota Armando MD 200 [place] [address] Information Allergies Active Allergy Reactions Criticality Noted Date Comments Lisinopril Cough Low 08/07/2019 documented as of this encounter (statuses as of 12/09/2023) Medications Medication Sig Dispensed Refills Start Date End Date Status Boost 100 Calorie Smart Oral Liquid Take by mouth. 0 Act miley Multi Vitamin Daily Oral Tablet Take by mouth. 0 Act miley Aspirin 81 MG Oral Tablet Delayed Release Take 1 Tablet by mouth in the morning. 0 Active Pancrelipase (Zmf-Tcje-Doan) 07663-[address]353 UNIT Oral Capsule Delayed Release Particles (Creon 74677) 2 cap with meals, 1 with larger [...] as of this encounter (statuses as of 12/09/2023) Active Problems Problem Noted Date Diagnosed Date Malignant neoplasm of body of pancreas Metastasis to liver 08/30/2023 Encounter for antineoplastic chemotherapy 2022 History of carcinoma of pancreas 07/18/2023 Post-viral cough syndrome 07/09/2023 Upper airway cough syndrome 07/09/2023 History of 2019 novel coronavirus disease (COVID -19) 10/16/2022 Coronary artery disease invo lving [place] coronary artery of [place] heart without angina pectoris 08/20/2022 Overview: Severe [...] lipids WNL Factor V+heteroqygous. 04/10 colon-Dr Eller [facility] 2 polyps 1 tubular adenoma. Kevin 5y 2013 sleep study [facility] WNL [address] Elena [facility] Essential hypertension with goal blood [...] as of this encounter (statuses as of 12/09/2023) Resolved Problems Problem Noted Date Diagnosed Date [...] WNL, antiphos lipids WNL Factor V+heteroqygous. FM JL-TCWL-DBLLE DIS NEC documented as of this encounter (statuses as of 12/09/2023) Immunizations Name Administration Dates Next Due COVID-19 mRNA, LNP-s, No Pre serve, 2-Dose Series (GIDEEN) 01/13/2022,07/21/2021,02/01/2021,01/04 COVID-19, MRNA-LNP, 23-24, P F, 30 MCG/0.3 mL, 12 YRS AND ABOVE, IM ([employer] [facility]) 09/12/2023 Covid-19, Mrna, Lnp-s, Pf, B ivalent, 30 Mcg, IM, 12 yrs and above (GIDEEN) 08/16/2022 HEP A - Hepatitis A (Adult [...] Telephone Encounter - Courtney Plascencia RN - 12/09/2023 1:14 PM EST Treatment last week delayed due to fever. Lab work today ok for treatment, patients last message was that he was fever free. Attempted to call patient to verify, MyG also sent. 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) 12/17/2023 8:45 AM EST Office Visit Hematology/Oncolog y [facility] [address] [place] [address] Dakota Armando MD [address] [place] [address] [place] [address] 01/06/2024 10:45 AM EST Office Visit Dermatology [facility] [place] 200 [facility] [place] [address] Cal Jernigan MD [address] [place] [address] [place] [address] 07/20/2024 10:15 AM EDT Office Visit Dermatology [facility] 200 [facility] [place] [address] Cal Jernigan MD 200 [facility] [place], [place] [address] 07/21/2024 1:45 PM EDT Office Visit Hematology/Oncolog y [facility] 200 [facility] [place], [place] [address] Dakota Armando MD 200 [facility] [place], [place] [address] 07/24/2024 11:40 AM EDT Office Visit Family Practice [facility] [address] [facility] [place] [address] Sergio Barriga MD [address] [facility] [place] [address] Scheduled Procedures Name Priority Associated Diagnoses Date/Ti [...] this encounter Medical Devices Implanted Type Area Sign Out Clerk Device Identifier Shelf Expiration Date Model / Serial / Lot Stent Viabil Biliary [id number] - [id number] Implanted:Qty : 1 on 07/17/2021 by Guillermo Jones DO at ENDOSCOPY [facility] [address].[employer] REYNALDO [id number] 03/04/2024 [id number] / [id number] / [id number] Port Implant W/8f Poly Cath - [id number] Implanted:Qty : 1 on 09/13/2023 by Gary Rodriguez DO at OR [facility] Right: Chest CR BARD : PERIPHERAL VASCULAR [id number] 04/24/2025 [id number] / / [id number] documented as of this encounter Advance Directives Documents on File Type Date Recorded Patient Flame Annealing Machine Setter Expl anation Advance Directives and Living [...] Agen t (per Health Care Power of Mobile Home Lot Utility Worker document) [email or web address] [email or web address] First Alternate Health Care Agent (per Health Care Power of Mobile Home Lot Utility Worker document) Care Teams Fork Lift Truck Operator Relationship Specialty Start Date End Date Sergio Barriga MD [address] [place] [address] PCP - General Family Medicine 08/07/19 documented as of this encounter
--- OUTSIDE RECORDS SUMMARY | 2024-04-19 00:10 | External Medical Summary | Summary of Care ---
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 0 Active Pancrelipase (Nub-Ksac-Rupg) 94471-85091 UNIT Oral Capsule Delayed Release Particles (Creon 41340) 2 cap with meals, 1 with larger [...] -19) 10/16/2022 Coronary artery disease invo lving [place] coronary artery of [place] heart without angina pectoris 08/20/2022 Overview: Severe [...] WNL, antiphos lipids WNL Factor V+heteroqygous. FM FF-DMPZ-LEWGO DIS NEC documented as of this encounter (statuses as of 12/09/2023) Immunizations Name Administration Dates Next Due COVID-19 mRNA, LNP-s, No Pre serve, 2-Dose Series (Gamar) 01/13/2022,07/21/2021,02/01/2021,01/04 COVID-19, MRNA-LNP, 23-24, P F, 30 MCG/0.3 mL, 12 YRS AND ABOVE, IM ([facility] 09/12/2023 Covid-19, Mrna, Lnp-s, Pf, B ivalent, 30 Mcg, IM, 12 yrs and above (Gamar) 08/16/2022 HEP A - Hepatitis A (Adult [...] Care Team (Late st Contact Info) Description 12/10/2023 9:00 AM EST Hem/Onc Treatment Hematology/Oncology Treatment, [place] [address] [place] [address] Rehana, Chair 3 Hem Onc [facility] [address] [place] [address] 12/17/2023 8:45 AM EST Office Visit Hematology/Oncology [facility] [address] [place] [address] Dakota Armando MD [address] [place] [address] 01/06/2024 10:45 AM EST Office Visit Dermatology [facility] [address] [place] [address] Cal Jernigan MD [address] [place] [address] 07/20/2024 10:15 AM EDT Office Visit Dermatology [facility] [address] [place] [address] Cal Jernigan MD [address] [place] [address] 07/21/2024 1:45 PM EDT Office Visit Hematology/Oncology [facility] [address] [place] [address] Dakota Armando MD [address] [place] [address] 07/24/2024 11:40 AM EDT Office Visit Family Practice [facility] [address] [place] [address] Sergio Barriga MD [address] [place] [place] [address] Scheduled Procedures Name Priority Associated Diagnoses Date/Ti [...] this encounter Medical Devices Implanted Type Area Rail Walker Device Identifier Shelf Expiration Date Model / Serial / Lot Stent Viabil Biliary [id number] - [id number] Implanted:Qty : 1 on 07/17/2021 by Guillermo Jones DO at [facility]OSCOPY [facility] [employer] REYNALDO [id number] 03/04/2024 [id number] / [id number] / [id number] Port Implant W/8f Poly Cath - [id number] Implanted:Qty : 1 on 09/13/2023 by Gary Rodriguez DO at OR [facility] Right: Chest CR BARD : PERIPHERAL VASCULAR [id number] 04/24/2025 [id number] / / [id number] documented as of this encounter Procedures Procedure Name Priority Date/Time Associated Diagnosis Comments DIFFERENTIAL, AUTOMATED STAT 12/09/2023 9:41 AM EST 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) COMPREHENSIVE METABOLIC PANEL STAT 12/09/2023 9:41 AM EST 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) CBC STAT 12/09/2023 9:41 AM EST 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) CBC STAT 12/09/2023 9:41 AM EST 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) documented in this encounter Results * (ABNORMAL) DIFFERENTIAL, AUTOMATED (12/09/2023 9:41 AM EST) WBC 7.65 4.00 - 10.80 K/uL 12/09/2023 9:51 AM EST [facility] 56[facility]02 Neutrophils % 51.3 40.0 - 75.0 % 12/09/2023 9:51 AM EST [facility] Lymphocytes % 23.8 18.0 - 42.0 % 12/09/2023 9:51 AM EST [facility] 56-02 Monocytes % 11.9(H) 1.0 - 11.0 % 12/09/2023 9:51 AM EST [facility] 56[facility]02 Eosinophils % 11.6(H) 0.0 - 6.0 % 12/09/2023 9:51 AM EST [facility] 56 Basophils % 1.4 0.0 - 2.0 % 12/09/2023 9:51 AM [facility] 56- Absolute Neutrophils 3.92 1.80 - 7.70 K/uL 12/09/2023 9:51 AM EST [facility] 56 Absolute Lymphocytes 1.82 1.00 - 4.80 K/ul 12/09/2023 9:51 AM [facility] 56 Absolute Monocytes 0.91 0.00 - 1.10 K/uL 12/09/2023 9:51 AM [facility] 56 Absolute Eosinophils 0.89(H) 0.00 - 0.70 K/uL 12/09/2023 9:51 AM [facility] 56 Absolute Basophils 0.11 0.00 - 0.20 K/uL 12/09/2023 9:51 AM [facility] 56 Blood Venous blood specimen / Unknown Venipuncture / Unknown 12/09/2023 9:41 AM EST 12/09/2023 9:41 AM EST Dakota Armando MD LAB BLOOD ORDERABLES [facility] [address] [place] [address] * (ABNORMAL) CBC (12/09/2023 9:41 AM EST) WBC 7.65 4.00 - 10.80 K/uL 12/09/2023 9:51 AM [facility] RBC 4.09 4.50 - 5.25 M/uL 12/09/2023 9:51 AM [facility] 56 HGB 11.0(L) 14.0 - 16.8 g/dL 12/09/2023 9:51 AM [facility] 56 HCT 35.9(L) 40.0 - 48.4 % 12/09/2023 9:51 AM [facility] 56 MCV 87.8 82.0 - 99.5 fL 12/09/2023 9:51 AM [facility] 56 MCH 26.9 27.0 - 34.0 pg 12/09/2023 9:51 AM [facility] 56 MCHC 30.6 32.0 - 36.0 g/dL 12/09/2023 9:51 AM [facility] 56 RDW 20.7 11.5 - 15.5 % 12/09/2023 9:51 AM [facility] 56 PLT 449(H) 140 - 400 K/uL 12/09/2023 9:51 AM [facility] 56 MPV 8.9 6.6 - 11.1 fL 12/09/2023 9:51 AM [facility] 56 Blood Venous blood specimen / Unknown Venipuncture / Unknown 12/09/2023 9:41 AM EST 12/09/2023 9:41 AM EST Dakota Armando MD LAB BLOOD ORDERABLES [facility] [address] [place] [address] * COMPREHENSIVE METABOLIC PANEL (12/09/2023 9:41 AM EST) BUN 16 6 - 20 mg/dL 12/09/2023 10:13 AM [facility] 56 Creatinine 1.0 0.6 - 1.2 mg/dL 12/09/2023 10:13 AM [facility] 56 Estimated Glomerular Filtration Rate 82 >=60 mL/min 12/09/2023 10:13 AM [facility] 56 Comment:eGFR is calculated b ased on the CKD-EPI 2020 equation Sodium 138 135 - 146 mmol/L 12/09/2023 10:13 AM [facility] 56- Potassium 4.3 3.5 - 5.1 mmol/L 12/09/2023 10:13 AM [facility] 56- Chloride 101 98 - 107 mmol/L 12/09/2023 10:13 AM [facility] 56 CO2 30 22 - 32 mmol/L 12/09/2023 10:13 AM [facility] 56 Anion Gap 7 7 - 15 mmol/L 12/09/2023 10:13 AM [facility] 56 Glucose 112 70 - 120 mg/dL 12/09/2023 10:13 AM [facility] 56- Albumin 3.8 3.8 - 5.0 g/dL 12/09/2023 10:13 AM EST [facility] 56-02 AST 27 10 - 50 U/L 12/09/2023 10:13 AM EST [facility] 5602 Alkaline Phosphatase 118 35 - 130 U/L 12/09/2023 10:[address] Bilirubin, Total 0.4 <=1.2 mg/dL 12/09/2023 10:13 AM EST [address] Calcium 9.3 8.4 - 10.2 mg/dL 12/09/2023 10:[address] Protein 6.9 6.0 - 8.3 g/dL 12/09/2023 10:13 AM EST [address] ALT 26 10 - 50 U/L 12/09/2023 10:[address] Blood Venous blood specimen / Unknown Venipuncture / Unknown 12/09/2023 9:41 AM EST 12/09/2023 9:41 AM EST Dakota Armando MD LAB BLOOD ORDERABLES Performing Organization Address City/State/[facility] Co de Phone Number [facility] 56-[address] [place] [address] documented in this encounter Visit Diagnoses Diagnosis 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) Malignant neoplasm of body of pancreas 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 documented in this encounter Advance Directives Documents on File Type Date Recorded Patient Patient Scheduling Manager Expl anation Advance Directives and Living [...] Agen t (per Health Care Power of Pot Room Tapper document) [email or web address] [email or web address] First Alternate Health Care Agent (per Health Care Power of Pot Room Tapper document) [email or web address] Care Teams Sheet Metal Shop Supervisor Relationship Specialty Start Date End Date Sergio Barriga MD [address] [place] [address] PCP - General Family Medicine 08/07/19 documented as of this encounter
--- OUTSIDE RECORDS SUMMARY | 2024-04-19 00:10 | External Medical Summary | Summary of Care ---
Author Name Unknown Organization [facility] Address [address] [place] [address] Phone [phone] Care Team Providers Care Fire Protection Fabricator Name Role Phone Sergio Barriga MD Primary [...] MG Dakota Armando MD [address] [place], [place] [address] Anc Hem/Onc [facility] DEPT CLOSED - 10/08/[address] [place] [address] Referral ID Status Reason Start Date Expiration Date V isits Requested Visits Authorized [id number] Authorized 08/30/2023 11/24/[phone] Encounter Details Date Type Department Care Team (Latest Contact Info) Description 12/10/2023 9:00 AM EST Hem/Onc Treatment Hematology/Oncolog y Treatment, [place] [address] [place] [address] Rehana, Chair 3 Hem Onc [place] [address] [place] [address] [address] Encounter for antineoplastic chemotherapy*; 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); 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 0 Act miley Multi Vitamin Daily Oral Tablet Take by mouth. 0 Act miley Aspirin 81 MG Oral Tablet Delayed Release Take 1 Tablet by mouth in the morning. 0 Active Pancrelipase (Vmn-Hrdc-Ylnc) 54[address] UNIT Oral Capsule Delayed Release Particles (Creon 65532) 2 cap with meals, 1 with larger [...] as of this encounter (statuses as of 12/10/2023) Active Problems Problem Noted Date Diagnosed Date Malignant neoplasm of body of pancreas Metastasis to liver 08/30/2023 Encounter for antineoplastic chemotherapy 2022 History of carcinoma of pancreas 07/18/2023 Post-viral cough syndrome 07/09/2023 Upper airway cough syndrome 07/09/2023 History of 2019 novel coronavirus disease (COVID -19) 10/16/2022 Coronary artery disease invo lving [place] coronary artery of [place] heart without angina pectoris 08/20/2022 Overview: [...] lipids WNL Factor V+heteroqygous. 04/10 colon-Dr Case [facility] 2 polyps 1 tubular adenoma. Kevin 5y 2013 sleep study [facility] WNL [address] Elena [facility] Essential hypertension with goal blood [...] as of this encounter (statuses as of 12/10/2023) Resolved Problems Problem Noted Date Diagnosed Date [...] WNL, antiphos lipids WNL Factor V+heteroqygous. FM VC-WIQD-EAERL DIS NEC documented as of this encounter (statuses as of 12/10/2023) Immunizations Name Administration Dates Next Due COVID-19 mRNA, LNP-s, No Pre serve, 2-Dose Series ([employer]) 01/13/2022,07/21/2021,02/01/2021,01/04 COVID-19, MRNA-LNP, 23-24, P F, 30 MCG/0.3 mL, 12 YRS AND ABOVE, IM [facility] 09/12/2023 Covid-19, Mrna, Lnp-s, Pf, B ivalent, 30 Mcg, IM, 12 yrs and above ([employer]) 08/16/2022 HEP A - Hepatitis A (Adult [...] Care Team (Late st Contact Info) Description 12/12/2023 12:15 PM EST Immunization/Injectio n Hematology/Oncology Treatment, [place] 200 [facility] [place], [place] [address] Nurse, Med 4 [address] [place], [place] [address] 12/13/2023 1:00 PM EST Immunization/Injectio n Hematology/Oncology Treatment, [place] 200 [facility], [place] [address] Nurse, Med 4 [address] [place], [place] [address] 12/17/2023 8:45 AM EST Office Visit Hematology/Oncology [facility] [place] [address] [place], [place] [address] Dakota Armando MD 200 [facility] [place], [place] [address] 12/23/2023 9:30 AM EST Laboratory Laboratory [facility] [place] [address] [place], [place] [id number] [place], Lab [facility] [address] [place], [place] [address] 12/24/2023 10:00 AM EST Hem/Onc Treatment Hematology/Oncology Treatment, [place] 200 [facility], [place] [address] Rehana, Chair 1 Hem Onc [facility] [address] [place], [place] [address] 01/06/2024 10:45 AM EST Office Visit Dermatology [facility] [place] [address] [place], [place] [address] Cal Jernigan MD [address] [place], [place] [address] 07/20/2024 10:15 AM EDT Office Visit Dermatology [facility] [place] [address] [place], [place] [address] Cal Jernigan MD 200 [facility] [place] [address] 07/21/2024 1:45 PM EDT Office Visit Hematology/Oncology [facility] 200 [facility] [place] [address] Dakota Armando MD 200 [facility] [place], [place] [address] 07/24/2024 11:40 AM EDT Office Visit Family Practice 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) Expected: 12/24/2023 (Approximate), Expires: 12/10/2024 Scheduled Procedures Name Priority Associated Diagnoses Date/Ti [...] encounter Medical Devices Implanted Type Area Tool And Gauge Inspector Device Identifier Shelf Expiration Date Model / Serial / Lot Stent Viabil Biliary [id number] - [id number] Implanted:Qty : 1 on 07/17/2021 by Guillermo Jones DO at [facility]OSCOPY [facility] [employer] REYNALDO [id number] 03/04/2024 [id number] / [id number] / [id number] Port Implant W/8f Poly Cath - [id number] Implanted:Qty : 1 on 09/13/2023 by Gary Rodriguez DO at OR [facility] Right: Chest CR BARD : PERIPHERAL VASCULAR [id number] 04/24/2025 [id number] / / [id number] documented as of this encounter Visit Diagnoses [...] on Sat12/10/23 at 1015, Until Sat12/10/23 at 2013 Start Infusion 12/10/2023 9:46 AM EST 500 mL 50 mL/hr diphenhydrAMINE (Benadryl) inj 50 mg 50 mg, IV Push, ONCE PRN Other, Hypersensitivity Reaction, Starting on Sat12/10/23 at 0933, Until Sat12/11/23 at 0932, For 24 hours EPINEPHrine 1 MG/ML inj 0.3 mg 0.3 mg, Intramuscular, ONCE PRN Other, Hypersensitivity Reaction or Anaphylaxis, Starting on Sat12/10/23 at 0933, Until Sat12/11/23 at 0932, For 24 hours hEParin 100 UNIT/ML Lock Flush inj 500 Units 500 Units (5 mL), IV Lock, PRN Other, IV Flush, Starting on Sat12/10/23 at 0933, Until Sat12/11/23 at 0932, For 24 hours, Do not flush if lock, PICC, or central line not in place; IV infusing or unable to flush. Hydrocortisone Sod Suc (PF) (Solu-Cortef) inj 100 mg 100 mg, IV Push, ONCE PRN Other, Hypersensitivity Reaction, Starting on Sat12/10/23 at 0933, Until Sat12/11/23 at 0932, For 24 hours oxygen GAS Inhalation, OXYGEN, First dose on Sat12/10/23 at 1015, Until Discontinued, Device/Managed by: Low [...] Push, PRN Other, IV Flush, Starting on Sat12/10/23 at 0933, Until Sat12/11/23 at 0932, For 24 hours, Do not flush if lock, PICC, or central line not in place; IV infusing or unable to flush. Given 12/10/2023 2:10 PM EST 10 mL Inactive Administered Medications - up to 3 most recent administrations Medication Order MAR Action Action Date Dose Rate Site Atropine sulfate inj 0.4 mg 0.4 mg, IV Push, ONCE, On Sat12/10/23 at 1015, For 1 dose, Give before CPT-11 Given 12/10/2023 12:35 PM EST 0.4 mg Fluorouracil (5-Fu) 4,300 [...] 10:29 AM EST 150 mg 250 mL/hr documented in this encounter Advance Directives Documents on File Type Date Recorded Patient Export Manager Expl anation Advance Directives and Living [...] t (per Health Care Power of Auto Repair Technician document) [email or web address] [email or web address] First Alternate Health Care Agent (per Health Care Power of Auto Repair Technician document) [email or web address] Care Teams Fire Protection Fabricator Relationship Specialty Start Date End Date Sergio Barriga MD [address] [place] [address] PCP - General Family Medicine 08/07/19 documented as of this encounter
--- OUTSIDE RECORDS SUMMARY | 2024-04-19 00:10 | External Medical Summary | Summary of Care ---
Author Name Unknown Organization [facility] Address [address] [place] [address] Phone [phone] Care Team Providers Care Infrastructure Architect Name Role Phone Sergio Barriga MD Primary Care Provider + Reason for Visit * Reason Comments Procedure Home 5FU infusion pu mp disconnect/port flush * Episode Based Medications (Routine) - Authorized [...] 0.5 MG Dakota Armando MD [address] [place], [place] [address] Anc Hem/Onc [facility] DEPT CLOSED - 10/08/[address] [place] [id number] Referral ID Status Reason Start Date Expiration Date V isits Requested Visits Authorized [id number] Authorized 08/30/2023 11/24/[phone] Encounter Details Date Type Department Care Team (Latest Contact Info) Description 12/12/2023 12:15 PM EST Immunization/ Injection Hematology/Oncology Treatment, [facility] [place] [address] [place] [address] Nurse, Med [address] [place] [address] Encounter for antineoplastic chemotherapy*; 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); 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 0 Act miley Multi Vitamin Daily Oral Tablet Take by mouth. 0 Act miley Aspirin 81 MG Oral Tablet Delayed Release Take 1 Tablet by mouth in the morning. 0 Active Pancrelipase (Rmc-Ggtc-Nfka) 95587-51130 UNIT Oral Capsule Delayed Release Particles (Creon 01066) 2 cap with meals, 1 with larger [...] as of this encounter (statuses as of 12/12/2023) Active Problems Problem Noted Date Diagnosed Date Malignant neoplasm of body of pancreas Metastasis to liver 08/30/2023 Encounter for antineoplastic chemotherapy 2022 History of carcinoma of pancreas 07/18/2023 Post-viral cough syndrome 07/09/2023 Upper airway cough syndrome 07/09/2023 History of 2019 novel coronavirus disease (COVID -19) 10/16/2022 Coronary artery disease invo lving [place] coronary artery of [place] heart without angina pectoris 08/20/2022 Overview: Severe [...] as of this encounter (statuses as of 12/12/2023) Resolved Problems Problem Noted Date Diagnosed Date [...] WNL, antiphos lipids WNL Factor V+heteroqygous. FM XC-NUBN-RZNDE DIS NEC documented as of this encounter (statuses as of 12/12/2023) Immunizations Name Administration Dates Next Due COVID-19 mRNA, LNP-s, No Pre serve, 2-Dose Series ([employer]) 01/13/2022,07/21/2021,02/01/2021,01/04 COVID-19, MRNA-LNP, 23-24, P F, 30 MCG/0.3 mL, 12 YRS AND ABOVE, IM ([employer]) 09/12/2023 Covid-19, Mrna, Lnp-s, Pf, B ivalent, 30 Mcg, IM, 12 yrs and above ([employer]) 08/16/2022 HEP A - Hepatitis A [...] Nursing Notes * Demi Wolff RN - 12/12/2023 12:26 PM EST Chair 12 Pt arrives with home 5FU infusion completed. He states he feels good and has been sleeping really well. Pump removed, VAD flushed per protocol and joyner needle removed. Patient tolerated treatment well and was discharged in stable condition. No coverage needed today. documented in this encounter Plan of Treatment Upcoming Encounters Date Type Department Care Team (Late st Contact Info) Description 12/13/2023 1:00 PM EST [facility] [address] [facility] [place] [address] Nurse, Med 4 [address] [place], [place] [address] 12/17/2023 8:45 AM EST Office Visit Hematology/Oncology [facility] [address] [place], [place] [address] Dakota Armando MD [address] [place], [place] [address] 12/23/2023 9:30 AM EST Laboratory Laboratory [facility] [address] [place], [place] [id number] Park, Lab [facility] [address] [place], [place] [address] 12/24/2023 10:00 AM EST Hem[facility] [address] [facility], [place] [address] Rehana, Chair 1 Hem Onc [facility] [address] [facility] [place], [place] [address] 01/06/2024 10:45 AM EST Office Visit Dermatology [facility] [address] [place], [place] [address] Cal Jernigan MD [address] [place], [place] [address] 07/20/2024 10:15 AM EDT Office Visit Dermatology [facility] [address] [place] [address] Cal Jernigan MD [address] [place], [place] [address] 07/21/2024 1:45 PM EDT Office Visit Hematology/Oncology [facility] [address] [place], [place] [address] Dakota Armando MD [address] [place], [place] [address] 07/24/2024 11:40 AM EDT Office Visit Family Practice [facility] [address] [place] [address] Sergio Barriga MD [address] [place] [address] Scheduled Procedures Name Priority Associated Diagnoses Date/Ti [...] this encounter Medical Devices Implanted Type Area Boiler Plant Worker Device Identifier Shelf Expiration Date Model / Serial / Lot Stent Viabil Biliary [id number] - [id number] Implanted:Qty : 1 on 07/17/2021 by Guillermo Jones DO at ENDOSCOPY [facility] [place] [employer] [id number] 03/04/2024 [id number] / [id number] / [id number] Port Implant W/8f Poly Cath - [id number] Implanted:Qty : 1 on 09/13/2023 by Gary Rodriguez DO at OR [facility] Right: Chest CR BARD : PERIPHERAL VASCULAR [id number] 04/24/2025 [id number] / / [id number] documented as of this encounter Visit Diagnoses [...] PRN Other, IV Flush, Starting on Marilia 12/12/23 at 1212, Until Sat12/13/23 at 1211, For 24 hours, Do not flush if lock, PICC, or central line not in place; IV infusing or unable to flush. Given 12/12/2023 12:14 PM EST 500 Units sodium chloride 0.9 % flush central line 10 mL 10 mL, IV Push, PRN Other, IV Flush, Starting on Marilia 12/12/23 at 1212, Until 12/13/23 at 1211, For 24 hours, Do not flush if lock, PICC, or central line not in place; IV infusing or unable to flush. Given 12/12/2023 12:14 PM EST 10 mL documented in this encounter Advance Directives Documents on File Type Date Recorded Patient Wool Shearing Supervisor Expl anation Advance Directives and Living [...] Agen t (per Health Care Power of Logistical Engineer document) [email or web address] [email or web address] First Alternate Health Care Agent (per Health Care Power of Logistical Engineer document) [email or web address] Care Teams Infrastructure Architect Relationship Specialty Start Date End Date Sergio Barriga MD [address] [place] [address] PCP - General Family Medicine 08/07/19 documented as of this encounter
--- OUTSIDE RECORDS SUMMARY | 2024-04-19 00:10 | External Medical Summary | Summary of Care ---
Author Name Unknown Organization [facility] Address [address] [place] [address] Phone [phone] Care Team Providers Care Graduating Machine Operator Name Role Phone Sergio Barriga MD Primary Care Provider + Reason for Visit * Reason Onset Date Comments Information 12/09/2023 Encounter Details Date Type Department Care Team (Late st Contact Info) Description 12/09/2023 Telephone Hematology/Oncology Treatment, [place] [address] [place] [address] Dakota Armando MD [address] [place] [address] Information Allergies Active Allergy Reactions Criticality Noted [...] mouth in the morning. 0 Active Pancrelipase ([employer]-Mwpr-Ipvp) 19317-85268 UNIT Oral Capsule Delayed Release Particles (Creon 35852) 2 cap with meals, 1 with larger [...] -19) 10/16/2022 Coronary artery disease invo lving [place] coronary artery of [place] heart without angina pectoris 08/20/2022 Overview: Severe [...] WNL Factor V+heteroqygous. 04/10 colon-Dr Eller [facility] 2 polyps 1 tubular adenoma. Kevin 6y 2013 sleep study [facility] WNL [address] Elena [facility] Essential hypertension with goal blood pressure [...] WNL, antiphos lipids WNL Factor V+heteroqygous. FM UE-AQQS-SKXCU DIS NEC documented as of this encounter (statuses as of 12/09/2023) Immunizations Name Administration Dates Next Due COVID-19 mRNA, LNP-s, No Pre serve, 2-Dose Series ([employer]) 01/13/2022,07/21/2021,02/01/2021,01/04 COVID-19, MRNA-LNP, 23-24, P F, 30 MCG/0.3 mL, 12 YRS AND ABOVE, IM ([employer]) 09/12/2023 Covid-19, Mrna, Lnp-s, Pf, B ivalent, 30 Mcg, IM, 12 yrs and above ([employer]) 08/16/2022 HEP A - Hepatitis A (Adult [...] AM EST Hem/Onc Treatment Hematology/Oncolog y Treatment, [place] [address] [facility] [place] [address] Rehana, Chair 3 Hem Onc [address] [place] [address] Encounter for antineoplastic chemotherapy*; 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); Malignant neoplasm of body of pancreas (HCC) 12/17/2023 8:45 AM EST Office Visit Hematology/Oncolog y [facility] [address] [place] [address] Dakota Armando MD [address] [place] [address] [place] [address] 01/06/2024 10:45 AM EST Office Visit Dermatology [facility] [place] [address] [facility] [place] [address] Cal Jernigan MD [address] [place] [address] [place] [address] 07/20/2024 10:15 AM EDT Office Visit Dermatology [facility] [address] [place] [address] Cal Jernigan MD [address] [facility] [place], [place] [address] 07/21/2024 1:45 PM EDT Office Visit Hematology/Oncolog y [facility] [address] [facility] [place], [place] [address] Dakota Armando MD [address] [facility] [place], [place] [address] 07/24/2024 11:40 AM EDT Office Visit Family Practice [facility] [address] [place] [address] Sergio Barriga MD [address] [facility] [place] [address] Scheduled Procedures Name Priority Associated Diagnoses Date/Ti [...] this encounter Medical Devices Implanted Type Area Powdered Sugar Pulverizer Operator Device Identifier Shelf Expiration Date Model / Serial / Lot Stent Viabil Biliary [id number] - [id number] Implanted:Qty : 1 on 07/17/2021 by Guillermo Jones DO [place] [facility] [place] [employer] [id number] 03/04/2024 [id number] / [id number] / [id number] Port Implant W/8f Poly Cath - [id number] Implanted:Qty : 1 on 09/13/2023 by Gary Rodriguez DO at OR [facility] Right: Chest CR BARD : PERIPHERAL VASCULAR [id number] 04/24/2025 [id number] / / [id number] documented as of this encounter Advance Directives Documents on File Type Date Recorded Patient Civil Draftsman Expl anation Advance Directives and Living Will [...] Agen t (per Health Care Power of Call Center Receptionist document) [email or web address] [email or web address] Sibling First Alternate Health Care Agent (per Health Care Power of Call Center Receptionist document) Care Teams Graduating Machine Operator Relationship Specialty Start Date End Date Sergio Barriga MD [address] [place] [address] PCP - General Family Medicine 08/07/19 documented as of this encounter
--- OUTSIDE RECORDS SUMMARY | 2024-04-19 00:10 | External Medical Summary | Summary of Care ---
Author Name Unknown Organization [facility] Address [address] [place] [address] Phone [phone] Care Team Providers Care Electric Drill Operator Name Role Phone Sergio Barriga MD Primary Care Provider + Reason for Visit * Reason Comments Follow Up Encounter Details Date Type Department Care Team (Late st Contact Info) Description 12/02/2023 2:00 PM EST Office Visit Pulmonary Medicine, [facility] [address] [facility] [place] [address] Chris Kaplan [facility] [address] [facility] [id number] Malignant neoplasm of pancreas, unspecified location of malignancy (HCC)* Allergies Active Allergy Reactions Criticality Noted Date Comments Lisinopril Cough Low 08/07/2019 documented as of this encounter (statuses as of 12/02/2023) Medications Medication Sig Dispensed Refills Start Date End Date Status Boost 100 Calorie Smart Oral Liquid Take by mouth. 0 Act miley Multi Vitamin Daily Oral Tablet Take by mouth. 0 Act miley Aspirin 81 MG Oral Tablet Delayed Release Take 1 Tablet by mouth in the morning. 0 Active Pancrelipase (San-Gnnn-Cnhu) 62992-32430 UNIT Oral Capsule Delayed Release Particles (Creon 36671) 2 cap with meals, 1 with larger [...] as of this encounter (statuses as of 12/02/2023) Active Problems Problem Noted Date Diagnosed Date [...] WNL Factor V+heteroqygous. 04/10 colon-Dr Eller [facility] 2 polyps 1 tubular [...] as of this encounter (statuses as of 12/02/2023) Resolved Problems Problem Noted Date Diagnosed Date [...] Overview: 01/13 dx date ? After 6h isadoar. 04/12 recl nearly occlusive DVT in distal popliteal vein also anterior tib, post tib and peroneal veins, similar to 01/13. 05/13 labs Anti thr III WNL, Prot C WNL, Prot S WNL, antiphos lipids WNL Factor V+heteroqygous. FM AG-IBEL-CZAUC DIS NEC documented as of this encounter (statuses as of 12/02/2023) Immunizations Name Administration Dates Next Due COVID-19 mRNA, LNP-s, No Pre serve, 2-Dose Series ([facility]) 01/13/2022,07/21/2021,02/01/2021,01/04 COVID-19, MRNA-LNP, 23-24, P F, 30 MCG/0.3 mL, 12 YRS AND ABOVE, IM ([facility]) 09/12/2023 Covid-19, Mrna, Lnp-s, Pf, B ivalent, 30 Mcg, IM, 12 yrs and above ([facility]) 08/16/2022 HEP A - Hepatitis A [...] Sign Reading Time Taken Comments Blood Pressure 112/60 12/02/2023 2:17 PM EST Pulse 100 12/02/2023 2:17 PM EST Temperature 36.7 C (98.1 F) 12/02/2023 2:17 PM ES T Respiratory Rate 20 12/02/2023 2:17 PM EST Oxygen Saturation 95% 12/02/2023 2:18 PM EST ra, amb Inhaled Oxygen Concentration - - Weight 63.7 kg (140 lb 6.4 oz) 12/02/2023 2:17 P M EST Height 175.3 cm (5' 9") 12/02/2023 2:17 PM EST Body Mass Index 20.73 12/02/2023 2:17 PM EST documented in this [...] Progress Notes * Chris Kaplan MD - 12/02/2023 2:14 PM EST 12/02/2023 Pulmonary Medicine, [address] [place] [id number] Rafael Cramer 1950 male 73 year old Attending Physician Documentation: 73-year-old male, significant past medical history of pancreatic cancer, status post Whipple's procedure 2020, chemotherapy January 2022, factor 5 Leiden me to [place], remote history of DVT 2018, ground-glass changes on CT scan, presenting for follow-up pulmonary evaluation. Since last evaluation, patient was noted to have progressively worsening right lung infiltrates along with right basilar consolidation. PET scan showed increasing evidence of metastatic disease within abdomen. Patient is undergoing active chemotherapy after placement of Port-A-Cath. Follow-up chestx-ray done today, compared with June 2023 and August 2023 showed gradually improving right lowerlobe status compared to August [address] SKULL BASE TO MID-THIGH - 08/27/2023 11:13 am1. Interval increase in groundglass opacities throughout the [...] 1.8 cm right hepatic heterogeneous hypoenhancing lesion, biopsy- proven metastasis. 4. 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 Patient describes stable respiratory symptoms status with episodic minimal cough. Denies active hemoptysis. Fatigue and tiredness attributed to chemotherapy status. Patient describes recurrent episodes of predominantly nocturnal cough, improved while taking Prilosec but reoccurred when patient stopped Prilosec. Physical examination significant for class 2 throat, no evidence of cervical lymphadenopathy, clearlung curry with improved air entry in right base posteriorly without dullness, regular cardiac rhythm, no evidence of volume overload and nonlateralizing Neuro examination. Review of historical data: Chest x-ray June 2023 showed scattered nodular infiltrates predominantly in right upper and mid lung curry, no effusions, no scarring or consolidation noted. Normal PFT January 2023 without any evidence of obstruction/restriction. Overall clinical picture is consistent with evidence [...] Plan: Call with change in symptoms status Follow-up: Return in about 2 months (around 01/31/2024). | Check-out note: Hx of Ca Pancreas, s/p Whipples 3 years ago Active Chemo Rx status Resolving RLL infiltrate (new since 06/2023, improved c/w 10/2023 to 12/02/2022) Hx of UACS Hx of DVT 2019 F-5 Leiden Status Plan: F/u 8 weeks with repeat CXR PA Lat view Role of FOB and Abx therapy was discussed. Reassess status in 8 weeks with f/u and CXR Chris Kaplan MD Subjective CC: Chief Complaint Patient presents with Follow Up HPI: Nursing Notes: Helen Abreu LPN 12/02/23 1425 Addendum Pt is here for f/u upper airway cough syndrome. MMRC Dyspnea Scale = 1 (I get short of breath when hurrying on level ground or walking up a slight hill) Interm History/Respiratory Symptoms Cough: frequent, typically dry Hemoptysis: no Sinus Symptoms: morning drainage Hospitalizations: no ED Trips: no Triggers: illness Nocturnal: cough CPAP/BiPAP/O2: no Flu Vaccine: 2022 Pneumovax: 2020 Prevnar: 2019 COVID 19: x6, last injection 09/12/23 Objective Filed Vitals: 12/02/23 1417 12/02/23 1418 BP: 112/60 Pulse: 100 Resp: 20 Temp: 36.7 C (98.1 F) TempSrc: Tympanic SpO2: 95% 95% Weight: 63.7 kg (140 lb 6.4 oz) Height: 1.753 m (5' 9") Exam: Const: [...] No edema of the lower limbs bilaterally. Abdomen: Positive bowel sounds. Palpation of the abdomen reveals softness, but no distension or tenderness. No palpable hepatosplenomegaly. Musculo: Walks with a normal gait. Skin: Skin is warm and dry. Neuro: Coordination normal. No involuntary movement. Psych: Patient's attitude is cooperative. Mood is normal. Affect is normal. Tests reviewed with the patient: XR CHEST 2 VIEWS Result Date: 12/02/2023 [...] up. 6. Slight interval increase in size of [...] disease. A request was sent to the INTERIOR DESIGN CONSULTANT ([employer] Analyst) to notify the responsible provider of these findings on 11/05/2023 at 12:15 p.m. IR INTERVENTIONAL RADIOLOGY PROCEDURE IN OR Result Date: 09/16/2023 IMPRESSION: Successful placement of a right chest power injectable medical port. PET CT SKULL BASE TO MID-THIGH Result Date: 08/27/2023 IMPRESSION 1. Solitary posterior right liver lobe hypermetabolic hepatic metastasis. 2. No additional hypermetabolic primary or metastatic lesions identified. 3. Subcentimeter right middle lobe nodule without hypermetabolism. Advise chest CT follow-up. 4. Left pararectal soft tissue mass has increased slightly in size over the last 10 years and has metabolic activity isointense with blood pool favoring a benign lesion. IR BIOPSY Result Date: 08/21/2023 IMPRESSION: Ultrasound-guided fine-needle aspiration and core biopsy of right hepatic lesion as described above. Please see separate pathology report for biopsy results. Images and interpretation personally reviewed by: Jm Jennings MD Images and interpretation personally reviewed by: Mily Rodas MD CT CHEST/ABD/PELVIS W IV AND W ORAL CONTRAST Result Date: 08/01/2023 IMPRESSION: Second opinion interpretation of outside CT chest abdomen pelvis dated July 24, 2023 1. New ill-defined 1.9 cm right hepatic lesion concerning for liver metastasis. 2. Interval progression of multiple ill-defined hypodense groundglass opacities throughout the right lung. Findings could reflect infectious/inflammatory process. However, given the concern for liver metastasis, recommend continued follow-up to exclude malignancy. 3. Enlarged 1.2 x 1.1 cm pericaval lymph node, concerning for tumor involvement. 4. 2.9 x 2.2 cm soft tissue mass on the left perirectal region, stable from prior. This has been present from 2020 and does not appear to represent a peritoneal implant from p ancreatic adenocarcinoma. Findings could represent a rectal GIST. Further characterization could bemade with contrast-enhanced MRI pelvis or tissue sampling. Images and interpretation personally reviewed by: Jose R Dominique MD CT ABD/PELVIS W IV AND W ORAL CONTRAST Result Date: 07/25/2023 IMPRESSION Chest: 1. Ill-defined ground-glass opacities scattered throughout the right lung, increased as compared to the prior exam, nonspecific, may represent infection or an inflammatory process. Consider continued surveillance. 2. The previously seen small pulmonary nodules are stable in size as detailed above. There is a new small nodule in the inferior right upper lobe measuring 0.4 cm. A follow up chest CT in 3 months is suggested for re-evaluation. 3. Stable mildly enlarged right hilar lymph node measuring 1.3 x 1.1 cm. No new enlarged mediastinal lymph nodes. 4. Mild diffuse esophageal wall thickening may be secondary to esophagitis. Abdomen/pelvis: 1. A new heterogeneous lesion inthe right hepatic lobe measuring 1.8 x 1.5 cm, concerning for metastases. 2. Postoperative changes of Whipple procedure. 3. Stable small subcentimeter retroperitoneal and mesenteric lymph nodes. 4. Other incidental findings as detailed above. CT CHEST W CONTRAST Result Date: 07/25/2023 IMPRESSION Chest: 1. Ill-defined ground-glass opacities scattered throughout the right lung, increased as compared to the prior exam, nonspecific, may represent infection or an inflammatory process. Consider continued surveillance. 2. The previously seen small pulmonary nodules are stable in size as detailed above. There is a new small nodule in the inferior right upper lobe measuring 0.4 cm. A follow up chest CT in 3 months is suggested for re-evaluation. 3. Stable mildly enlarged right hilarlymph node measuring 1.3 x 1.1 cm. No new enlarged mediastinal lymph nodes. 4. Mild diffuse esophageal wall thickening may be secondary to esophagitis. Abdomen/pelvis: 1. A new heterogeneous lesion in the right hepatic lobe measuring 1.8 x 1.5 cm, concerning for metastases. 2. Postoperative changesof Whipple procedure. 3. Stable small subcentimeter retroperitoneal and mesenteric lymph nodes. 4. Other incidental findings as detailed above. XR CHEST 2 VIEWS Result Date: 06/27/2023 IMPRESSION New, extensive heterogeneous opacity throughout the right lung with vaguely nodular appearance. Pneumonia must be considered but short-term follow- up to clearing is recommended. Available Radiologic data was reviewed by me in PACS. The images were shown to the patient and findings were discussed with the patient. HOME MEDICATIONS: ALPRAZolam 1 MG Oral Tablet (xaNAX) Atorvastatin Calcium 40 MG Oral Tablet (Lipitor) Loratadine 10 MG Oral Tablet (Claritin) Lidocaine-Prilocaine 2.5-2.5 % External Cream (Emla) OLANZapine 10 MG Oral Tablet (ZyPREXA) Ondansetron HCl 8 MG Oral Tablet (Zofran) Prochlorperazine Maleate 10 MG Oral Tablet (Compazine) Pantoprazole Sodium 40 MG Oral Tablet Delayed Release (Protonix) traZODone HCl 100 MG Oral Tablet (Desyrel) Continuation of patient use of medical marijuana is approved Pancrelipase (Fro-Lerw-Hrvh) 02521-22075 UNIT Oral Capsule Delayed Release Particles (Creon 97189) Aspirin 81 MG Oral Tablet Delayed Release Multi Vitamin Daily Oral Tablet Boost 100 Calorie Smart Oral Liquid ROS: No reported history of Hemoptysis, Hematemesis, Melena No reported history of Dysuria, Hematuria, Flank Pain No reported history of chronic headache, seizures No reported history of Fall or trauma . Past Medical History: Diagnosis Date Alcohol abuse 08/07/2019 Allergic disorder Allergy unspecified Asthma, severity to be determined Asthma Chronic insomnia 05/18/2019 Coronary artery disease involving [place] coronary artery of [place] heart without angina pectoris 08/20/2022 Severe noted [...] Bilateral Dr Mix COLONOSCOPY 04/02/2017 Dr Eller [facility] 2 polyps 1 tubular adenoma. COLONOSCOPY, DIAGNOSTIC (RECTUM) 09/14/2022 diverticulosis, fair prep, repeat 1 yr / [facility] COLORECTAL CANCER SCREEN;W/FLE 2006 EGD, FLEXIBLE,W/ENDOSCOPIC US 07/12/2021 pancreatic mass, GB sludge, CBD dilation, abnormal lymph nodes / [facility] EGD, W/ENDOSCOPIC US N/A 07/17/2021 ESOPHAGOGASTRODUODENOSCOPY (EGD), FLEXIBLE, TRANSORAL, ENDOSCOPIC ULTRASOUND performed by Guillermo Jones DO at ENDOSCOPY [facility] ERCP 07/12/2021 ERCP, DIAGNOSTIC, SPECIMEN COLLECTION N/A 07/17/2021 ENDOSCOPIC RETROGRADE CHOLANGIOPANCREATOGRAPHY (ERCP) DIAGNOSTIC performed by Guillermo Jones DO at[facility] INSER TUNN ACC DEV;5 YRS/OLDER Right 09/13/2023 INSERT TUNNELED CENTRAL VENOUS ACCESS WITH SUBQ PORT performed by Gary Rodriguez DO at OR [facility] IR BIOPSY 08/21/2023 KNEE ARTHROSCOPY/DEBRIDEMENT Left 07/12/[address] Zhu left partial medical meniscectomy & chondroplasty. REMOVE PANCREAS, PARTIAL (WHIPPLE) 08/07/[address] [place] Mike Westbrook. REMOVE TONSILS & ADENOIDS, UNDER 12 Tonsillectomy/Adenoids,<12 Y/O SHOULDER ARTHROSCOPY/DEBRIDEMENT Left 08/31/2014 Dr Zhu +biceps tenotomy debride labrum, subacromial decompression & distal clavicle excision. 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 Tobacco Use Smoking status: Never Smokeless tobacco: Never Vaping Use Vaping Use: Never used Substance and Sexual Activity Alcohol use: Yes Comment: 4 drinks/ day had stopped /[place] 2020, now rare. Drug use: Yes Frequency: 5.0 times per week Types: Marijuana Comment: oral caps. for appetite, relaxation. Sexual activity: Yes Partners: Female Comment: . 2 stepchildren. [facility] & [place]. no grandkids Social History Narrative Likes gardening. Cabin in [place]. Likes to weights, walking. Active [place] Festival [...] Endocrine Disorder Brother High lipids. lives in [place], [place] Review of patient's allergies indicates: Allergen Reactions Lisinopril Cough documented in this encounter Nursing Notes * Helen Abreu LPN - 12/02/2023 2:14 PM EST Pt is here for f/u upper airway cough syndrome. MMRC Dyspnea Scale = 1 (I get short of breath when hurrying on level ground or walking up a slight hill) Interm History/Respiratory Symptoms Cough: frequent, typically dry Hemoptysis: no Sinus Symptoms: morning drainage Hospitalizations: no ED Trips: no Triggers: illness Nocturnal: cough CPAP/BiPAP/O2: no Flu Vaccine: 2022 Pneumovax: 2020 Prevnar: 2019 COVID 19: x6, last injection 09/12/23 documented in this encounter Plan of Treatment Upcoming Encounters Date Type Department Care Team (Late st Contact Info) Description 12/09/2023 9:40 AM EST Laboratory Laboratory [facility] Rehana [place] [address] [place] [address] [id number] Reh[place], Lab [facility] [address] [facility] [place] [address] 12/10/2023 9:00 AM EST Hem/Onc Treatment Hematology/Oncology Treatment, [place] [address] [place] [address] Rehana, Chair 3 Hem Onc [facility] [address] [place] [address] [id number] 12/17/2023 8:45 AM EST Office Visit Hematology/Oncology [facility] Rehana [place] [address] [place] [address] [address] Dakota Armando MD [address] [place] [address] 07/20/2024 10:15 AM EDT Office Visit Dermatology [facility] [address] [facility] [place], [place] [address] Cal Jernigan MD [address] [facility] [place], [place] [address] 07/21/2024 1:45 PM EDT Office Visit Hematology/Oncology [facility] [address] [facility] [place], [place] [address] Dakota Armando MD [address] [facility] [place], [place] [address] 07/24/2024 11:40 AM EDT Office Visit Family Practice [facility] [address] [facility] [place] [address] Sergio Barriga MD [address] [facility] [place] [address] Scheduled Orders Name Type Priority Associated Diagnoses Orde r Schedule XR CHEST 2 VIEWS Medical Imaging Routine Malignant neoplasm of pancreas, unspecified location of malignancy (HCC) Expected: 01/27/2024, Expires: 01/02/2025 Scheduled Procedures Name Priority Associated Diagnoses Date/Ti me COLONOSCOPY FLEXIBLE PROXIMA L DIAGNOSTIC Recall History of adenomatous polyp of colon Health Maintenance Due Date Last Done Comments Depression Screening 09/10/2023 09/10/2022 COLONOSCOPY-ANNUAL AGES 18-100 09/14/2023 09/14/2022, 09/14/2022, 04/02/2017 GFR 12/02/2024 12/02/2023, 10/25, 10/21/2023, Additional history exists Albumin/Creatinine Ratio 10/16/2025 10/16/2022, [...] this encounter Medical Devices Implanted Type Area Micromatic Hone Operator Device Identifier Shelf Expiration Date Model / Serial / Lot Stent Viabil Biliary [id number] - [id number] Implanted:Qty : 1 on 07/17/2021 by Guillermo Jones DO at ENDOSCOPY [facility] Endorse [employer] REYNALDO [id number] 03/04/2024 [id number] / [id number] / [id number] Port Implant W/8f Poly Cath - [id number] Implanted:Qty : 1 on 09/13/2023 by Gary Rodriguez DO at OR [facility] Right: Chest CR BARD : PERIPHERAL VASCULAR [id number] 04/24/2025 [id number] / / [id number] documented as of this encounter Visit Diagnoses Diagnosis Malignant neoplasm of pancreas, unspecified location of malignancy (HCC)- Primary documented in this encounter Advance Directives Documents on File Type Date Recorded Patient Caustic Strength Inspector Expl anation Advance Directives and Living [...] Agen t (per Health Care Power of Belt Builder document) [email or web address] Sibling First Alternate Health Care Agent (per Health Care Power of Belt Builder document) Care Teams Electric Drill Operator Relationship Specialty Start Date End Date Sergio Barriga MD [address] [place] [address] PCP - General Family Medicine 08/07/19 documented as of this encounter
--- OUTSIDE RECORDS SUMMARY | 2024-04-19 00:10 | External Medical Summary | Summary of Care ---
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 0 Active Pancrelipase (Alw-Mnms-Bjzs) 92748-78899 UNIT Oral Capsule Delayed Release Particles (Creon 81580) 2 cap with meals, 1 with larger [...] -19) 10/16/2022 Coronary artery disease invo lving [place] coronary artery of [place] heart without angina pectoris 08/20/2022 Overview: [...] lipids WNL Factor V+heteroqygous. 04/10 colon-Dr Eller [facility] 2 polyps 1 [...] WNL, antiphos lipids WNL Factor V+heteroqygous. FM MG-LVVB-TWNGV DIS NEC documented as of this encounter (statuses as of 12/02/2023) Immunizations Name Administration Dates Next Due COVID-19 mRNA, LNP-s, No Pre serve, 2-Dose Series (Shut Down) 01/13/2022,07/21/2021,02/01/2021,01/04 COVID-19, MRNA-LNP, 23-24, P F, 30 MCG/0.3 mL, 12 YRS AND ABOVE, IM ([facility]) 09/12/2023 Covid-19, Mrna, Lnp-s, Pf, B ivalent, 30 Mcg, IM, 12 yrs and above (Shut Down) 08/16/2022 HEP A - Hepatitis A (Adult [...] 2:00 PM EST Office Visit Pulmonary Medicine, [facility] [address] [facility] [place] [address] Chris Kaplan MD [address] [place] [address] 12/03/2023 10:00 AM EST [facility] [address] [facility] [place], [place] [address] Rehana, Chair 8 Hem Onc [address] [place] [address] 12/17/2023 8:45 AM EST Office Visit Hematology/Oncology [facility] [address] [place] [address] Dakota Armando MD [address] [facility] [address] [place] [address] 07/20/2024 10:15 AM EDT Office Visit Dermatology [facility] [address] [place] [address] Cal Jernigan MD [address] [facility] [address] [place] [address] 07/21/2024 1:45 PM EDT Office Visit Hematology/Oncology [facility] [address] [place] [address] Dakota Armando MD [address] [place] [address] 07/24/2024 11:40 AM EDT Office Visit Family Practice [facility] [address] [place] [address] Sergio Barriga MD [address] 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) 12/02/2023 10:15 AM EST CULTURE, URINE, QUANTITATIVE Lab STAT 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) Fever of unknown origin 12/02/2023 10:19 AM EST URINALYSIS, REFLEX TO MICROSCOPIC Lab STAT 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) Fever of unknown origin 12/02/2023 10:19 AM EST Scheduled Procedures Name Priority Associated Diagnoses Date/Ti me COLONOSCOPY FLEXIBLE PROXIMA L DIAGNOSTIC Recall History of adenomatous polyp of colon Health Maintenance Due Date Last Done Comments Depression Screening 09/10/2023 09/10/2022 COLONOSCOPY-ANNUAL AGES 18-100 09/14/2023 09/14/2022, 09/14/2022, 04/02/2017 GFR 11/04/2024 11/04/2023, 09/26, 09/30/2023, Additional history exists Albumin/Creatinine Ratio 10/16/2025 10/16/2022, [...] this encounter Medical Devices Implanted Type Area Retail Maintenance Technician Device Identifier Shelf Expiration Date Model / Serial / Lot Stent Viabil Biliary [id number] - [id number] Implanted:Qty : 1 on 07/17/2021 by Guillermo Jones DO [place] [facility] [place] [employer] REYNALDO [id number] 03/04/2024 [id number] / [id number] / [id number] Port Implant W/8f Poly Cath - [id number] Implanted:Qty : 1 on 09/13/2023 by Gary Rodriguez DO at OR [facility] Right: Chest CR BARD : PERIPHERAL VASCULAR [id number] 04/24/2025 [id number] / / [id number] documented as of this encounter Visit Diagnoses Diagnosis 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) Malignant neoplasm of body of pancreas 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 Healthcare Agents on File Name Relationship Healthcare Agent Relationship Communication Virginie Cramer Spouse Health Care Agen t (per Health Care Power of Explosives Operator document) [email or web address] Temo Bela Sibling First Alternate Health Care Agent (per Health Care Power of Explosives Operator document) [email or web address] Care [email or web address] Plate Former Relationship Specialty Start Date End Date Sergio Barriga MD [address] [place] [address] PCP - General Family Medicine 08/07/19 documented as of this encounter
--- OUTSIDE RECORDS SUMMARY | 2024-04-19 00:10 | External Medical Summary ---
Author Name Unknown Address Unknown Organization K09:[facility] [address] [place] [address] Laboratory Report Ordering Provider Test Date Status JOSE ROY 12/09/2023 09:41:40 Final Observation Date Value Abnormality Reference (Units ) Status SYNC LEUKOCYTES IN BLOOD BY AUTOMATED COUNT 12/09/2023 09:41:40 7.65 4.00-10.80 (K/uL) Final Segs 12/09/2023 09:41:40 51.3 40.0-75.0 (%) Final Lymphs % 12/09/2023 09:41:40 23.8 18.0-42.0 (%) Final Monos 12/09/2023 09:41:40 11.9 Above high normal 1.0-11.0 (%) Final Eosinophils 12/09/2023 09:41:40 11.6 Above high normal 0.0-6.0 (%) Final Basos 12/09/2023 09:41:40 1.4 0.0-2.0 (%) Final Absolute Segs 12/09/2023 09:41:40 3.92 1.80-7.70 (K/uL) Final Lymphs, absolute 12/09/2023 09:41:40 1.82 1.00-4.80 (K/ul) Final Monos, Abs 12/09/2023 09:41:40 0.91 0.00-1.10 (K/uL) Final Eos, Abs 12/09/2023 09:41:40 0.89 Above high normal 0.00-0.70 (K/uL) Final Basos, Abs 12/09/2023 09:41:40 0.11 0.00-0.20 (K/uL) Final Performing Location [facility] [address] [place] [address]
--- OUTSIDE RECORDS SUMMARY | 2024-04-19 00:10 | External Medical Summary ---
Author Name Unknown Address Unknown Organization K09[facility] [address] Laboratory Report Ordering Provider Test Date Status JOSE ROY 12/09/2023 09:41:40 Final Observation Date Value Abnormality Reference (Units ) Status WBC, Total 12/09/2023 09:41:40 7.65 4.00-10.8 0 (K/uL) Final RBC 12/09/2023 09:41:40 4.09 4.50-5.25 (M/uL) Final Hemoglobin 12/09/2023 09:41:40 11.0 Below low normal 14 .0-16.8 (g/dL) Final HCT 12/09/2023 09:41:40 35.9 Below low normal 40. 0-48.4 (%) Final MCV 12/09/2023 09:41:40 87.8 82.0-99.5 (fL) Final MCH 12/09/2023 09:41:40 26.9 27.0-34.0 (pg) Final MCHC 12/09/2023 09:41:40 30.6 32.0-36.0 (g/dL) Final RDW 12/09/2023 09:41:40 20.7 11.5-15.5 (%) Final Platelets 12/09/2023 09:41:40 449 Above high normal 14 0-400 (K/uL) Final MPV 12/09/2023 09:41:40 8.9 6.6-11.1 ( fL) Final Performing Location [facility] [address]
--- OUTSIDE RECORDS SUMMARY | 2024-04-19 00:10 | External Medical Summary | Summary of Care ---
Author Name Unknown Organization [facility] Address [address] [place] [address] Phone [phone] Care Team Providers Care Ground Hand Name Role Phone Sergio Barriga MD Primary Care Provider + Reason for Visit * Reason Onset Date Comments Forms Request 12/09/2023 Milestone Software Assist Encounter Details Date Type Department Care Team (Late st Contact Info) Description 12/09/2023 Telephone Family Practice [facility] [address] [facility] [address] Sergio Barriga MD [address] [place] [address] Forms Request (Milestone Software Assist) Allergies Active Allergy Reactions Criticality Noted Date [...] mouth in the morning. 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 04/10 colon-Dr Eller [facility] 2 polyps 1 tubular [...] WNL, antiphos lipids WNL Factor V+heteroqygous. FM QD-GGIQ-XEPTJ DIS NEC documented as of this encounter (statuses as of 12/10/2023) Immunizations Name Administration Dates Next Due COVID-19 mRNA, LNP-s, No Pre serve, 2-Dose Series ([employer]) 01/13/2022,07/21/2021,02/01/2021,01/04 COVID-19, MRNA-LNP, 23-24, P F, 30 MCG/0.3 mL, 12 YRS AND ABOVE, IM ([employer]) 09/12/2023 Covid-19, Mrna, Lnp-s, Pf, B ivalent, 30 Mcg, IM, 12 yrs and above ([employer]) 08/16/2022 HEP A - Hepatitis A (Adult [...] encounter Miscellaneous Notes * Telephone Encounter - Shara Dash LPN - 12/10/2023 2:30 PM EST Provider section of form completed and faxed back. Received confirmation that fax went through. * Telephone Encounter - Shara Dash LPN - 12/09/2023 9:32 AM EST Received Milestone Software assist application for [employer]. Completed and placed in PCP mailbox for signature. documented in this encounter Plan of Treatment Upcoming Encounters Date Type Department Care Team (Late st Contact Info) Description 12/12/2023 12:15 PM EST Immunization/Injectio n Hematology/Oncology Treatment, [place] [address] [place] [address] Nurse, Med [address] [place] [address] [address] 12/13/2023 1:00 PM EST Immunization/Injectio n Hematology/Oncology Treatment, [place] [address] [place] [address] Nurse, Med [address] [place] [address] [address] 12/17/2023 8:45 AM EST Office Visit Hematology/Oncology [facility] [place] [address] [place] [address] Dakota Armando MD [address] [place] [address] 12/23/2023 9:30 AM EST Laboratory Laboratory [facility] [place] [address] [place], [place] [id number] Rehana, Lab Scenery [address] [place] [address] 12/24/2023 10:00 AM EST Hem[facility] [address] [place] [address] Rehana, Chair 1 Hem Onc [facility] [address] [place], [place] [address] 01/06/2024 10:45 AM EST Office Visit Dermatology [facility] [address] [place], [place] [address] Cal Jernigan MD [address] [place], [place] [address] 07/20/2024 10:15 AM EDT Office Visit Dermatology [facility] [address] [place], [place] [address] Cal Jernigan MD [address] [place] [address] 07/21/2024 1:45 PM EDT Office Visit Hematology/Oncology [facility] [address] [place] [address] Dakota Armando MD [address] [place] [address] 07/24/2024 11:40 AM EDT Office Visit Family [facility] [address] [place] [address] Sergio Barriga MD [address] [place] [address] Scheduled Procedures Name Priority Associated Diagnoses Date/Ti [...] this encounter Medical Devices Implanted Type Area Over The Road Driver Device Identifier Shelf Expiration Date Model / Serial / Lot Stent Viabil Biliary [id number] - [id number] Implanted:Qty : 1 on 07/17/2021 by Guillermo Jones DO at ENDOSCOPY [facility] [place] [employer] REYNALDO [id number] 03/04/2024 [id number] / [id number] / [id number] Port Implant W/8f Poly Cath - [id number] Implanted:Qty : 1 on 09/13/2023 by Gary Rodriguez DO at OR [facility] Right: Chest CR BARD : PERIPHERAL VASCULAR [id number] 04/24/2025 [id number] / / [id number] documented as of this encounter Advance Directives Documents on File Type Date Recorded Patient Head Tennis Professional Expl anation Advance Directives and Living Will [...] Agen t (per Health Care Power of Slot Machine Mechanic document) [email or web address] [email or web address] Bela Sibling First Alternate Health Care Agent (per Health Care Power of Slot Machine Mechanic document) [email or web address] Care Teams Ground Hand Relationship Specialty Start Date End Date Sergio Barriga MD [address] [place] [address] PCP - General Family Medicine 08/07/19 documented as of this encounter
--- OUTSIDE RECORDS SUMMARY | 2024-04-19 00:10 | External Medical Summary | Summary of Care ---
Author Name Unknown Organization [facility] Address [address] [facility] [place] [place] [address] Phone [phone] Care Team Providers Care Turntable Man Name Role Phone Sergio Barriga MD Primary Care Provider + Reason for Visit * Reason Onset Date Comments FYI 12/02/2023 Bhupendra Encounter Details Date Type Department Care Team (Late st Contact Info) Description 12/02/2023 Telephone Access Center, [place] [address] [facility] *DO NOT REMOVE THIS DEPARTMENT* [place] [address] Services, Scheduling [address] [place] [address] FYI (Bhupendra) Allergies Active Allergy Reactions Criticality Noted Date [...] mouth in the morning. 0 Active Pancrelipase (Dge-Hylf-Ypxq) 39967-[address] UNIT Oral Capsule Delayed Release Particles (Creon 83576) 2 cap with meals, 1 with larger [...] 10/16/2022 Coronary artery disease invo lving [place] coronary artery of [place] heart without angina pectoris 08/20/2022 Overview: Severe [...] lipids WNL Factor V+heteroqygous. 04/10 colon-Dr Eller [facility] 2 polyps 1 tubular adenoma. Kevin 5y 2013 sleep study [facility] WNL [address] Elena [facility] [...] WNL, antiphos lipids WNL Factor V+heteroqygous. FM SE-XEBD-LJFSE DIS NEC documented as of this encounter (statuses as of 12/02/2023) Immunizations Name Administration Dates Next Due COVID-19 mRNA, LNP-s, No Pre serve, 2-Dose Series ([employer]) 01/13/2022,07/21/2021,02/01/2021,01/04 COVID-19, MRNA-LNP, 23-24, P F, 30 MCG/0.3 mL, 12 YRS AND ABOVE, IM ([employer]) 09/12/2023 Covid-19, Mrna, Lnp-s, Pf, B ivalent, [...] Telephone Encounter - Courtney Plascencia RN - 12/02/2023 11:37 AM EST Noted. Will review with provider. * Telephone Encounter - Trini Lamb OSA - 12/02/2023 10:53 AM EST Giana calling from radiology stating there is a significant abnormality on patient's X-ray from today. Thank you. documented in this encounter Plan of Treatment Upcoming Encounters Date Type Department Care Team (Late st Contact Info) Description 12/02/2023 2:00 PM EST Office Visit Pulmonary Medicine, [facility] [address] [facility] [place] [address] Chris Kaplan MD [address] [facility] [id number] 12/03/2023 10:00 AM EST Hem/Onc Treatment Hematology/Oncology Treatment, [place] [address] [facility] [place] [address] Rehana, Chair 8 Hem Onc [address] [place] [address] 12/17/2023 8:45 AM EST Office Visit Hematology/Oncology [facility] [place] [address] [facility] [place] [address] Dakota Armando MD [address] [facility] [place] [address] 07/20/2024 10:15 AM EDT Office Visit Dermatology [facility] [address] [facility] [place] [address] Cal Jernigan MD [address] [facility] [place] [address] 07/21/2024 1:45 PM EDT Office Visit Hematology/Oncology [facility] [address] [facility] [place] [address] Dakota Armando MD [address] [facility] [place] [address] 07/24/2024 11:40 AM EDT Office Visit Family Practice [facility] [address] [place] [address] Sergio Barriga MD [address] [place] [place] [address] Scheduled Procedures Name Priority Associated Diagnoses Date/Ti [...] this encounter Medical Devices Implanted Type Area Chain Saw Mechanic Device Identifier Shelf Expiration Date Model / Serial / Lot Stent Viabil Biliary [id number] - [id number] Implanted:Qty : 1 on 07/17/2021 by Guillermo Jones DO [place] [facility] [place] [employer] [id number] 03/04/2024 [id number] / [id number] / [id number] Port Implant W/8f Poly Cath - [id number] Implanted:Qty : 1 on 09/13/2023 by Gary Rodriguez DO at OR [facility] Right: Chest CR BARD : PERIPHERAL VASCULAR [id number] 04/24/2025 [id number] / / [id number] documented as of this encounter Advance Directives Documents on File Type Date Recorded Patient Manager Analysis Expl anation Advance Directives and Living Will [...] Agen t (per Health Care Power of Accounting Teacher document) [email or web address] [email or web address] Cramer Sibling First Alternate Health Care Agent (per Health Care Power of Accounting Teacher document) [email or web address] Care Teams Turntable Man Relationship Specialty Start Date End Date Sergio Barriga MD [address] [place] [address] PCP - General Family Medicine 08/07/19 documented as of this encounter
--- OUTSIDE RECORDS SUMMARY | 2024-04-19 00:11 | External Medical Summary ---
Author Name Unknown Address Unknown Organization [facility] [place] [address] Laboratory Report Ordering Provider Test Date Status JOSE ROY 12/02/2023 10:15:27 Final Observation Date Value Abnormality Reference (Units ) Status WBC, Total 12/02/2023 10:15:27 42.25 Above upper panic limits 4.00-10.80 (K/uL) Final RBC 12/02/2023 10:15:27 4.57 4.50-5.25 (M/uL) Final Hemoglobin 12/02/2023 10:15:27 12.2 Below low normal 14.0-16.8 (g/dL) Final HCT 12/02/2023 10:15:27 38.6 Below low normal 40.0-48.4 (%) Final MCV 12/02/2023 10:15:27 84.5 82.0-99.5 (fL) Final MCH 12/02/2023 10:15:27 26.7 27.0-34.0 (pg) Final MCHC 12/02/2023 10:15:27 31.6 32.0-36.0 (g/dL) Final RDW 12/02/2023 10:15:27 20.4 11.5-15.5 (%) Final Platelets 12/02/2023 10:15:27 589 Above high normal 140-400 (K/uL) Final MPV 12/02/2023 10:15:27 9.2 6.6-11.1 (fL) Final Performing Location [facility] [place] [address]
--- OUTSIDE RECORDS SUMMARY | 2024-04-19 00:11 | External Medical Summary | Summary of Care ---
Author Name Unknown Organization [facility] Address [address] [place] [address] Phone [phone] Care Team Providers Care Wet Finisher Wool Name Role Phone Sergio Barriga MD Primary Care Provider + Reason for Visit * Reason Onset Date Comments Information 11/04/2023 Encounter Details Date Type Department Care Team (Late st Contact Info) Description 11/04/2023 Telephone Hematology/Oncology Treatment, [place] [address] [place] [address] Dakota Armando MD [address] [place] [address] Information Allergies Active Allergy Reactions Criticality Noted Date Comments Lisinopril Cough Low 08/07/2019 documented as of this encounter (statuses as of 11/05/2023) Medications Medication Sig Dispensed Refills Start Date End Date Status Boost 100 Calorie Smart Oral Liquid Take by mouth. 0 Active Multi Vitamin Daily Oral Tablet Take by mouth. 0 Active Aspirin 81 MG Oral Tablet Delayed Release Take 1 Tablet by mouth in the morning. 0 Active Pancrelipase (Ojk-Dpji-Zbae) 92447-71395 UNIT Oral Capsule Delayed Release Particles (Creon 64570) 2 cap with meals, 1 with larger [...] 09/25/2023 Active ALPRAZolam 1 MG Oral Tablet (xaNAX)Indicatio ns:Chronic insomnia TAKE ONE TABLET BY MOUTH AT BEDTIME NEEDED FOR SLEEP 30 Tablet 0 10/21/2023 Active Omeprazole 20 MG Oral Capsule Delayed Release (PriLOSEC) Take 1 Capsule by mouth in the morning. 0 3 Discontinue d(Medicatio n List Clean Up) documented as of this encounter (statuses as of 11/05/2023) Active Problems Problem Noted Date Diagnosed Date Malignant neoplasm of body of pancreas 3 Metastasis to liver 08/30/2023 Encounter for antineoplastic chemotherapy 2022 History of carcinoma of pancreas 07/18/2023 Post-viral cough syndrome 07/09/2023 Upper airway cough syndrome 07/09/2023 History of 2019 novel coronavirus disease (COVID -19) 10/16/2022 Coronary artery disease invo lving [place] coronary artery of [place] heart without angina pectoris 08/20/2022 Overview: [...] 04/10 colon-Dr Eller [facility] 2 polyps 1 tubular adenoma. Kevin 6y 2013 sleep study [facility] WNL [address] Elena [facility] [...] as of this encounter (statuses as of 11/05/2023) Resolved Problems Problem Noted Date Diagnosed Date [...] WNL, antiphos lipids WNL Factor V+heteroqygous. FM KJ-YHHB-HVQUL DIS NEC documented as of this encounter (statuses as of 11/05/2023) Immunizations Name Administration Dates Next Due COVID-19 mRNA, LNP-s, No Pre serve, 2-Dose Series ([employer]) 01/13/2022,07/21/2021,02/01/2021,12/26 COVID-19, MRNA-LNP, 23-24, P F, 30 MCG/0.3 mL, 12 YRS AND ABOVE, IM ([employer]) 09/12/2023 Covid-19, Mrna, Lnp-s, Pf, B ivalent, 30 Mcg, IM, 12 yrs and above ([employer]) 08/16/2022 HEP A - Hepatitis A (Adult [...] Telephone Encounter - Nereyda Sheikh OSA - 11/05/2023 4:14 PM EST [place] Authorization to Release form on file. Imaging pushed through [facility] to [facility]. Job ID: [id number]. * Telephone Encounter - Tracy June OSA - 11/04/2023 11:14 AM EST Per nursing patient has been scheduled as listed below for 11/19. Done. * Telephone Encounter - Courtney Plascencia RN - 11/04/2023 10:56 AM EST Patient is scheduled for C4D1 FOLFIRINOX tomorrow 11/05/23. Called patient. He states that he did have nausea/ vomiting night and diarrhea Saturday night. He feels fatigued, no energy, but states that this is normal for him as he usually experiences side effects during his 2nd week of treatment. He feels up to getting treatment tomorrow. He notes that he has a scan/ lab work at 11/28/22. Advised him that due to holiday, we have been given permission for him to get his lab work the sameday as treatment over [place]. After that, will need to be day prior as it has been in the past. [facility]: can you please push images from PET 08/27/23 to [place] so that they will have these for comparison? Scheduling: when patient is here tomorrow, please schedule next cycle of chemotherapy 11/19/23: - labs "CBCd, CMP" 1 hour prior to - 5 hour appt "C5D1 FOLFIRINOX/ udenyca day 4" Thanks! documented in this encounter Plan of Treatment Upcoming Encounters Date Type Department Care Team (Late st Contact Info) Description 11/07/2023 12:45 PM EST Immunization/Injectio n [facility]emat[facility] [place] [facility] [id number] [facility], [facility] [address] [facility] [place] [address] 11/08/2023 12:45 PM EST Immunization/Injectio n Hematology/Oncology Treatment, [place] [address] [facility] [place] [address] Nurse, Med 4 [address] [place] [address] 11/19/2023 9:00 AM EST Laboratory Laboratory [facility] [place] [address] [facility] [place] [id number] [place] [facility] [address] [place] [address] REPLACED BY [facility] [place] [address] 11/19/2023 10:00 AM EST Hem/Onc Treatment [facility]ology[facility] [place] [facility] [address] Rehana, Chair 2 Hem Onc [place] [address] [place] [address] 12/02/2023 2:00 PM EST Office Visit Pulmonary Medicine, [facility] [address] [facility] [place] [address] Chris Kaplan MD [address] [place] [address] 12/17/2023 8:45 AM EST Office Visit Hematology/Oncology [facility] [address] [place], [place] [address] Dakota Armando MD 200 [facility] [place] [address] 07/20/2024 10:15 AM EDT Office Visit Dermatology [facility] [address] [place] [address] Cal Jernigan MD [address] [facility] [place] [address] 07/21/2024 1:45 PM EDT Office Visit Hematology/Oncology [facility] [address] [place], [place] [address] Dakota Armando MD [address] [facility] [place], [place] [address] 07/24/2024 11:40 AM EDT Office Visit Family Practice [facility] [address] [facility] [place] [address] Sergio Barriga MD [address] [facility] [place] [address] Scheduled Procedures Name Priority Associated Diagnoses Date/Ti [...] this encounter Medical Devices Implanted Type Area Steamfitter Apprentice Device Identifier Shelf Expiration Date Model / Serial / Lot Stent Viabil Biliary [id number] - [id number] Implanted:Qty : 1 on 07/17/2021 by Guillermo Jones DO [place] [facility] [id number] 03/04/2024 [id number] / [id number] / [id number] Port Implant W/8f Poly Cath - [id number] Implanted:Qty : 1 on 09/13/2023 by Gary Rodriguez DO at OR [facility] Right: Chest CR BARD : PERIPHERAL VASCULAR [id number] 04/24/2025 [id number] / / [id number] documented as of this encounter Advance Directives Documents on File Type Date 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
--- OUTSIDE RECORDS SUMMARY | 2024-04-19 00:11 | External Medical Summary | Summary of Care ---
Author Name Unknown Organization [facility] Address [address] [address] Phone [phone] Care Team Providers Care Etcher Aircraft Name Role Phone Sergio Barriga MD Primary Care Provider + Reason for Visit * Reason Comments Chemotherapy Chemo/recheck Encounter Details Date Type Department Care Team (Late st Contact Info) Description 11/05/2023 8:30 AM EST Office Visit Hematology/Oncology State Shaina Garcia [address] [facility] [place] [address] Amber Huizar CRNP 400 [facility] [place] [id number] Malignant neoplasm of body of pancreas (HCC)*; 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); Encounter for antineoplastic chemotherapy; Rib pain on right side; Pain of right upper arm; Neck pain on right side; Muscle strain; Pneumonia of right lower lobe due to infectious organism Allergies Active Allergy Reactions Criticality Noted Date Comments Lisinopril Cough Low 08/07/2019 documented as of this encounter (statuses as of 11/06/2023) Medications Medication Sig Dispensed Refills Start Date End Date Status Boost 100 Calorie Smart Oral Liquid Take by mouth. 0 Act miley Multi Vitamin Daily Oral Tablet Take by mouth. 0 Act miley Aspirin 81 MG Oral Tablet Delayed Release Take 1 Tablet by mouth in the morning. 0 Active Pancrelipase (Gsr-Wari-Pkbn) 47267-54[address] UNIT Oral Capsule Delayed Release Particles (Creon 78761) 2 cap with meals, 1 with larger [...] Active Ondansetron HCl 8 MG Oral Tablet (Zofran)Indicatio [...] 09/25/2023 Active ALPRAZolam 1 MG Oral Tablet (xaNAX)Indication s:Chronic insomnia TAKE ONE TABLET BY MOUTH AT BEDTIME NEEDED FOR SLEEP 30 Tablet 0 10/21/2023 Active Amoxicillin-Pot Clavulanate 875-125 MG Oral Tablet (Augmentin)Indica tions:Pneumonia of right lower lobe due to infectious organism Take 1 Tablet by mouth in the morning and 1 Tablet before bedtime. Do all this for 7 days. 14 Tablet 0 11/05/2023 3 Active tiZANidine HCl 2 MG Oral Tablet (Zanaflex)Indicat ions:Muscle strain Take 1 Tablet by mouth every 8 hours as needed for Muscle spasms for up to 10 days. 30 Tablet 0 11/05/2023 3 Active Omeprazole 20 MG Oral Capsule Delayed Release (PriLOSEC) Take 1 Capsule by mouth in the morning. 0 3 Discontinue d(Medicatio n List Clean Up) Hospital, Clinic, or Other Facility Administered Medication Ordered Dose Route Frequency Start Date End Date Status Fluorouracil (5-Fu) 4,300 mg in NSS 138 mL infusion 4300 mg IV CONTINUOUS 11/04/2023 11/06/2023 Active documented as of this encounter (statuses as of 11/06/2023) Active Problems Problem Noted Date Diagnosed Date Malignant neoplasm of body of pancreas 3 Metastasis to liver 08/30/2023 Encounter for antineoplastic chemotherapy 2022 History of carcinoma of pancreas 07/18/2023 Post-viral cough syndrome 07/09/2023 Upper airway cough syndrome 07/09/2023 History of 2019 novel coronavirus disease (COVID -19) 10/16/2022 Coronary artery disease invo lving [place] coronary artery of [place] heart without angina pectoris 08/20/2022 Overview: Severe [...] WNL Factor V+heteroqygous. 04/10 colon-Dr Case [facility] 2 polyps 1 tubular adenoma. Kevin 6y 2013 sleep study [facility] WNL [address] [facility] as of this encounter (statuses as of 11/06/2023) Resolved Problems Problem Noted Date Diagnosed Date [...] WNL, antiphos lipids WNL Factor V+heteroqygous. FM VL-VBSR-UQMAV DIS NEC documented as of this encounter (statuses as of 11/06/2023) Immunizations Name Administration Dates Next Due COVID-19 mRNA, LNP-s, No Pre serve, 2-Dose Series ([employer]) 01/13/2022,07/21/2021,02/01/2021,01/04 COVID-19, MRNA-LNP, 23-24, P F, 30 MCG/0.3 mL, 12 YRS AND ABOVE, IM ([facility]) 09/12/2023 Covid-19, Mrna, Lnp-s, Pf, B ivalent, 30 Mcg, IM, 12 yrs and above ([employer]) 08/16/2022 HEP A - Hepatitis A (Adult [...] Sign Reading Time Taken Comments Blood Pressure 150/86 11/05/2023 8:30 AM EST Pulse 122 11/05/2023 8:30 AM EST Temperature 36.8 C (98.3 F) 11/05/2023 8:30 AM ES T Respiratory Rate - - Oxygen Saturation 90% 11/05/2023 8:30 AM EST Inhaled Oxygen Concentration - - Weight 62.2 kg (137 lb 3.2 oz) 11/05/2023 8:30 A M EST Height - - Body Mass Index 20.26 09/13/2023 10:17 AM EDT documented in this encounter Functional [...] as of this encounter Progress Notes * Bhupendra AmberCHRISTO Vogel - 11/05/2023 8:30 AM EST Hematology/Oncology Outpatient Clinic note Angie Olguin [place] [address] [place] [address] Name: Rafael Cramer Date: 11/04/2023 CHIEF COMPLAINT: [...] by Dr. Mike Westbrook on 08/07/2021 at [facility]. -He completed gemcitabine and Xeloda combination between [...] by Dr. Mike Westbrook on 08/07/2021 at [facility]. Final pathology: -invasive poorly differentiated pancreatic adenocarcinoma [...] received 2nd opinion from medical oncologist from [facility] who agreed with treatment plan. Also recommending after 12 treatments with FOLFIRINOX, he may consider the clinical trial of G12C inhibitor. He will need port for upcoming chemotherapy Would like to send the NGS checkup on the liver biopsy specimen ( done at [facility]). Component Latest Ref Rng 09/30/2023 CA 19-9 <35.0 U/mL 437.1 (H) HISTORY OF PRESENT ILLNESS: Rafael Cramer is a 73 year old male with a history as outlined above. Currently here for f/u visittoday and consideration for C4D1 of treatment. Was lifting weights this last week. Beeson a pop in his right shoulder joint. No pain initially so continued with lifting weights. Next day woke up with significant pain in his right rib cage, right upper arm/shoulder and up the right side of his neck. Having trouble sleeping d/t the pain. When he coughs or yawns feels like an ice pick in his shoulder.When he rolls over in bed pain is excruciating. Beeson sick last evening. Was having significant nausea. During the night he was vomiting. Couldn't eat much Saturday and had diarrhea that day and through the night. Feeling weak ever since. On good days able to eat six small meals throughout the day. Feels that good days are getting less and less. Bad week always occurs the week after treatment. Continues to lose weight. Is taking creon as prescribed. Averages drinking a boost a day, some days he drinks two. No neuropathy or skin changes. Past Medical History: Diagnosis Date Alcohol abuse 08/07/2019 Allergic disorder Allergy unspecified Asthma, severity to be determined Asthma Chronic insomnia 05/18/2019 Coronary artery disease involving [place] coronary artery of [place] heart without angina pectoris 08/20/2022 Severe noted on 08/16 CT chest. Deep vein thrombosis (DVT) of lower extremity (HCC) 05/12/201901/13 dx date After 6h isadora. 04/12 recl nearly occlusive DVT in distal popliteal vein also anterior tib, post tib and peroneal veins, similar to 2/19. 05/13 labs Anti thr III WNL, Prot [...] Bilateral Dr Mix COLONOSCOPY 04/02/2017 Dr Eller [facility] 2 polyps 1 tubular adenoma. COLONOSCOPY, DIAGNOSTIC (RECTUM) 09/14/2022 diverticulosis, fair prep, repeat 1 yr / [facility] COLORECTAL CANCER SCREEN;W/[facility] 2006 EGD, FLEXIBLE,W/ENDOSCOPIC US 07/12/2021 pancreatic mass, GB sludge, CBD dilation, abnormal lymph nodes / [facility] EGD, W/ENDOSCOPIC US N/A 07/17/2021 ESOPHAGOGASTRODUODENOSCOPY (EGD), FLEXIBLE, TRANSORAL, ENDOSCOPIC ULTRASOUND performed by Guillermo Jones DO at ENDOSCOPY [facility] ERCP 07/12/2021 ERCP, DIAGNOSTIC, SPECIMEN COLLECTION N/A 07/17/2021 ENDOSCOPIC RETROGRADE CHOLANGIOPANCREATOGRAPHY (ERCP) DIAGNOSTIC performed by Guillermo Jones DO atENDOSCOPY [facility] INSER TUNN ACC DEV;5 YRS/OLDER Right 09/13/2023 INSERT TUNNELED CENTRAL VENOUS ACCESS WITH SUBQ PORT performed by Gary Rodriguez DO at OR [facility] IR BIOPSY 08/21/2023 KNEE ARTHROSCOPY/DEBRIDEMENT Left 07/12/[address] Zhu left partial medical meniscectomy & chondroplasty. REMOVE PANCREAS, PARTIAL (WHIPPLE) 08/07/[address]21 [facility] Mike Westbrook. REMOVE TONSILS & ADENOIDS, UNDER 12 Tonsillectomy/Adenoids,<12 Y/O SHOULDER ARTHROSCOPY/DEBRIDEMENT Left 08/31/2014 Dr Zhu +biceps tenotomy debride labrum, subacromial decompression & distal clavicle excision. 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 Tobacco Use Smoking status: Never Smokeless tobacco: Never Vaping Use Vaping Use: Never used Substance and Sexual Activity Alcohol use: Yes Comment: 4 drinks/ day had stopped /CA 2020, now rare. Drug use: Yes Types: Marijuana Comment: oral caps. for appetite, relaxation. Sexual activity: Yes Partners: Female Comment: . 2 stepchildren. FOR[facility]LY [facility], [facility] & [place]. no grandkids Other Topics Concern Not on file Social History Narrative Likes gardening. Cabin in [facility]. Likes to weights, walking. Active [place] [employer]. 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 Social Determinants [...] Tablet by mouth in the morning. Pancrelipase (Pvb-Sksp-Xgxt) 66875-86494 UNIT Oral Capsule Delayed Release Particles (Creon 01887) 2 cap with meals, 1 with larger [...] BY MOUTH EVERY MORNING 90 Tablet 3 Omeprazole 20 MG Oral Capsule Delayed Release (PriLOSEC) Take 1 Capsule by mouth in the morning. (Patient not taking: Reported on 09/13/2023) Lidocaine-Prilocaine 2.5-2.5 % External Cream (Emla) APPLY TO SKIN OVER MEDIPORT & COVER 1HR PRIOR TO ACCESSING. (Patient not taking: Reported on 09/27/2023) 30 g 1 Ondansetron HCl 8 MG Oral Tablet (Zofran) Take 1 Tablet by mouth every 8 hours as needed for Nausea. (Patient not taking: Reported on 09/27/2023) 30 Tablet 3 Prochlorperazine Maleate 10 MG Oral Tablet (Compazine) Take 1 Tablet by mouth every 6 hours as needed for Nausea. 30 Tablet 3 OLANZapine 10 MG Oral Tablet (ZyPREXA) Take 1 tablet by mouth before bed x4 nights starting day 1 of each chemo cycle (Patient not taking: Reported on 09/27/2023) 48 Tablet 0 Loratadine 10 MG Oral Tablet (Claritin) Take 1 tablet daily x5 days starting the day of chemo pump disconnect (Patient not taking: Reported on 09/27/2023) 60 Tablet 0 Atorvastatin Calcium 40 MG Oral Tablet (Lipitor) TAKE 1 TABLET BY MOUTH EVERY MORNING 90 Tablet 2 ALPRAZolam 1 MG Oral Tablet (xaNAX) TAKE ONE TABLET BY MOUTH AT BEDTIME NEEDED FOR SLEEP 30 Tablet 0 Current Facility-Administered Medications Medication Dose Route Frequency Provider Last Rate Last Admin Fluorouracil (5-Fu) 4,300 mg in NSS 138 mL infusion 4,300 mg Intravenous Continuous Dakota Armando MD Facility-Administered Medications Ordered in Other Visits Medication Dose Route Frequency Provider Last Rate Last Admin [START ON 11/05/2023] Fluorouracil (5-Fu) 4,300 mg for Home Infusion 2,400 mg/m2 (Treatment Plan Recorded) Intravenous Once Dakota Armando MD REVIEW OF SYSTEMS: See HPI - otherwise negative OBJECTIVE: Filed Vitals: 11/05/23 0830 BP: 150/86 Pulse: 122 Temp: 36.8 C (98.3 F) TempSrc: Tympanic SpO2: 90% Weight: 62.2 kg (137 lb 3.2 oz) Wt Readings from Last 5 Encounters: 11/05/23 62.2 kg (137 lb 3.2 oz) 10/01/23 64 kg (141 lb 3.2 oz) 09/17/23 65.9 kg (145 lb 3.2 oz) 09/13/23 65.3 kg (144 lb) 09/06/23 65.4 kg (144 lb 3.2 oz) PHYSICAL EXAM: ECOG: Performance Status 1 = [...] noted Neurologic: Normal - Grossly intact LABS: Results for orders placed or performed in visit on 11/04/23 COMPREHENSIVE METABOLIC PANEL Result Value Ref Range BUN 13 6 - 20 mg/dL Creatinine 1.2 0.6 - 1.2 mg/dL Estimated Glomerular Filtration Rate 66 >=60 mL/min Sodium 131 (L) 135 - 146 mmol/L Potassium 3.7 3.5 - 5.1 mmol/L Chloride 93 (L) 98 - 107 mmol/L CO2 27 22 - 32 mmol/L Anion Gap 11 7 - 15 mmol/L Glucose 154 (H) 70 - 120 mg/dL Albumin 3.4 (L) 3.8 - 5.0 g/dL AST 17 10 - 50 U/L Alkaline Phosphatase 120 35 - 130 U/L Bilirubin, Total 0.8 <=1.2 mg/dL Calcium 9.0 8.4 - 10.2 mg/dL Protein 6.7 6.0 - 8.3 g/dL ALT 18 10 - 50 U/L CBC Result Value Ref Range WBC 7.37 4.00 - 10.80 K/uL RBC 4.31 4.50 - 5.25 M/uL HGB 11.3 (L) 14.0 - 16.8 g/dL HCT 35.8 (L) 40.0 - 48.4 % MCV 83.1 82.0 - 99.5 fL MCH 26.2 27.0 - 34.0 pg MCHC 31.6 32.0 - 36.0 g/dL RDW 16.7 11.5 - 15.5 % PLT 193 140 - 400 K/uL MPV 9.9 6.6 - 11.1 fL DIFFERENTIAL, AUTOMATED Result Value Ref Range WBC 7.37 4.00 - 10.80 K/uL Neutrophils % 72.2 40.0 - 75.0 % Lymphocytes % 12.2 (L) 18.0 - 42.0 % Monocytes % 13.3 (H) 1.0 - 11.0 % Eosinophils % 1.9 0.0 - 6.0 % Basophils % 0.4 0.0 - 2.0 % Absolute Neutrophils 5.32 1.80 - 7.70 K/uL Absolute Lymphocytes 0.90 (L) 1.00 - 4.80 K/ul Absolute Monocytes 0.98 0.00 - 1.10 K/uL Absolute Eosinophils 0.14 0.00 - 0.70 K/uL Absolute Basophils 0.03 0.00 - 0.20 K/uL IMPRESSION/PLAN: Metastatic Pancreatic Adenocarcinoma Encounter for chemotherapy Lab results reviewed: unremarkable Ok for treatment today as scheduled Continue Udenyca support D4 d/t high risk for febrile neutropenia CA 19-9 pending - repeat monthly Patient with increasing difficulty tolerating therapy d/t nausea and poor po intake causing ongoingweight loss. Suggested patient take Zyprexa continuously as nausea prophylaxis and appetite stimulant. Continue Creon 2 tablets with meals Continue to eat small meals throughout the day Continue Boost intake 2 daily PET/CT scheduled 11/28/22 at [facility] for restaging Had a long discussion with patient regarding diagnosis, prognosis and treatment plan. All questionsanswered to patient's satisfaction. Patient unsure if he wishes to continue treatment. Will continue discussion after results of restaging scans are known. Right rib, arm and neck pain Muscle strain STAT chest x ray ordered Prescription placed for Zanaflex 2 mg TID. Provided with 10 day supply. Continue with supportive care If pain does not improve and chest x ray unremarkable will consider moving up restaging scans ADDENDUM: Chest x ray IMPRESSION New indistinct airspace opacity at the right lung base with a small amount of loculated fluid in the major fissure, concerning for pneumonia. Follow-up to resolution is recommended to exclude metastatic disease. Prescription sent for Augmentin 875-125 mg BID x 7 days. Patient declined to schedule follow up appointment next week but agreed to send [employer] messagewith update. RTC as scheduled CHRISTO Torres documented in this encounter Nursing Notes * Shirley Dorman CMA - 11/05/2023 8:34 AM EST Patient identifed by name and birthdate Do you have any concerns about pain management for today's visit? Yes. Patient instructed to discuss pain concerns with provider during the visit today Living Will or Advance Directive for Health Care as noted on the problem list. [employer] [facility] is a way you can talk to your provider on line through e-mail. Would you like to sign up? I can activate it for you? ALREADY ACTIVE Filed Vitals: 11/05/23 0830 BP: 150/86 Pulse: 122 Temp: 36.8 C (98.3 F) TempSrc: Tympanic SpO2: 90% Weight: 62.2 kg (137 lb 3.2 oz) Patient was instructed to not get [...] 12:45 PM EST Immunization/Injectio n Hematology/Oncology Treatment, [place] [address] [address] Nurse, Med [address] [id number] 11/08/2023 12:45 PM EST Immunization/Injectio n Hematology/Oncology Treatment, [place] [address] [address] Nurse, Med [address] [id number] 11/19/2023 9:00 AM EST Laboratory Laboratory State Shaina Garcia [address] [id number] Renee Kimball [facility] [address] [facility] [place] [address] 11/19/2023 10:00 AM EST Hem/Onc Treatment Hematology/Oncology Treatment, [place] [address] [place], [place] [address] Rehana, Chair 2 Hem Onc [facility] [address] [place] [address] 12/02/2023 2:00 PM EST Office Visit Pulmonary Medicine, [facility] [address] [facility] [place] [address] Chris Kaplan [facility] [address] [facility] [address] 12/17/2023 8:45 AM EST Office Visit Hematology/Oncology [facility] [address] [place] [address] Dakota Armando MD [address] [place], [place] [address] 07/20/2024 10:15 AM EDT Office Visit Dermatology [facility] [address] [place] [address] Cal Jernigan MD [address] [facility] [place], [place] [address] 07/21/2024 1:45 PM EDT Office Visit Hematology/Oncology [facility] [address] [place] [address] Dakota Armando MD [address] [facility] [place] [address] 07/24/2024 11:40 AM EDT Office Visit Family Practice [facility] [address] [facility] [place] [address] Sergio Barriga MD [address] [facility] [place] [address] Scheduled Procedures Name Priority Associated Diagnoses Date/Ti [...] this encounter Medical Devices Implanted Type Area Button Riveter Device Identifier Shelf Expiration Date Model / Serial / Lot Stent Viabil Biliary [id number] - [id number] Implanted:Qty : 1 on 07/17/2021 by Guillermo Jones DO at ENDOSCOPY [facility] Incentient REYNALDO [id number] 03/04/2024 [id number] / [id number] / [id number] Port Implant W/8f Poly Cath - [id number] Implanted:Qty : 1 on 09/13/2023 by Gary Rodriguez DO at OR [facility] Right: Chest CR BARD : PERIPHERAL VASCULAR [id number] 04/24/2025 [id number] / / [id number] documented as of this encounter Procedures Procedure Name Priority Date/Time Associated Diagnosis Comments XR CHEST 2 VIEWS STAT 11/05/2023 10:3 6 AM EST Malignant neoplasm of body of pancreas (HCC) Rib pain on right side Pain of right upper arm Neck pain on right side CA 19-9 Routine 11/04/2023 9:31 AM EST Malignant neoplasm of body of pancreas (HCC) documented in this encounter Results * XR CHEST 2 VIEWS (11/05/2023 10:36 AM EST) Anatomical Region Laterality Modality Chest Computed Radiogr aphy 11/05/2023 12:1 9 PM EST Impressions 11/05/2023 12:16 PM EST IMPRESSION New indistinct airspace opacity at the right lung base with a small amount of loculated fluid in the major fissure, concerning for pneumonia. Follow-up to resolution is recommended to exclude metastatic disease. A request was sent to the MEDICAL ANTHROPOLOGIST (Program Project Manager) to notify the responsible provider of these findings on 11/05/2023 at 12:15 p.m. Narrative 11/05/2023 12:16 PM EST EXAM XR CHEST 2 VIEWS-11/05/2023 10:36 am HISTORY metastatic pancreatic cancer, new onset right rib/upper extremity/neck pain COMPARISON Chest radiograph dated 06/27/[address] dated 07/24/2023 TECHNIQUE PA and lateral views of the chest were obtained FINDINGS LINES/DEVICES: Right IJ approach chemotherapy port catheter terminating in the right atrium. LUNGS/PLEURA: New indistinct airspace opacities in the right middle and right lower lobes, with relative sparing of the posterior right lung. Stable ground-glass opacity in the suprahilar right lung. Additional previously seen ground-glass opacities in the right lung are not visualized and may have resolved or are obscured by the right lung base consolidation. Clear left lung. New small amount of loculated pleural fluid in the right major fissure. No pneumothorax. CARDIOVASCULAR/MEDIASTINUM: Within normal limits. OTHER: Unremarkable upper abdomen. No acute osseous abnormality. Procedure Note Surinder Ramos MD - 11/05/2023 EXAM XR CHEST 2 VIEWS-11/05/2023 10:36 am HISTORY metastatic pancreatic cancer, new onset right rib/upper extremity/neckpain COMPARISON Chest radiograph dated 06/27/[address] dated 07/24/2023 TECHNIQUE PA and lateral views of the chest were obtained FINDINGS LINES/DEVICES: Right IJ approach chemotherapy port catheter terminating inthe right atrium. LUNGS/PLEURA: New indistinct airspace opacities in the right middle andright lower lobes, with relative sparing of the posterior right lung.Stable ground-glass opacity in the suprahilar right lung. Additionalpreviously seen ground-glass opacities in the right lung are notvisualized and may have resolved or are obscured by the right lung baseconsolidation. Clear left lung. New small amount of loculated pleuralfluid in the right major fissure. No pneumothorax.CARDIOVASCULAR/MEDIASTINUM: Within normal limits. OTHER: Unremarkable upper abdomen. No acute osseous abnormality. IMPRESSION IMPRESSION New indistinct airspace opacity at the right lung base with a small amountof loculated fluid in the major fissure, concerning for pneumonia.Follow-up to resolution is recommended to exclude metastatic disease. A request was sent to the MEDICAL ANTHROPOLOGIST (Program Project Manager) to notifythe responsible provider of these findings on 11/05/2023 at 12:15 p.m. Amber [facility] (RAD GENERAL) * (ABNORMAL) CA 19-9 (11/04/2023 9:31 AM EST) CA 19-9 310.0(H) <35.0 U/mL 11/05/2023 2:24 PM EST LABORATORY [facility] Blood Venous blood specimen / Unknown Venipuncture / Unknown 11/04/2023 9:31 AM EST 11/04/2023 9:31 AM EST Amber VILLAFUERTE LAB BLOOD ORDER [facility] [address] [facility] [address] [place] [id number] documented in this encounter Visit Diagnoses Diagnosis Malignant neoplasm of body of pancreas (HCC)- Primary Malignant neoplasm of body of pancreas 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 Encounter for antineoplastic chemotherapy Rib pain on right side Chest pain, unspecified Pain of right upper arm Pain in limb Neck pain on right side Cervicalgia Muscle strain Unspecified site of sprain and strain Pneumonia of right lower lobe due to infectious organism documented in this encounter Advance Directives Documents on File Type Date Recorded Patient Tire Builder Expl anation Advance Directives and Living Will [...] Agen t (per Health Care Power of Data Modeler document) [email or web address] Sibling First Alternate Health Care Agent (per Health Care Power of Data Modeler document) Care Teams Etcher Aircraft Relationship Specialty Start Date End Date Sergio Barriga MD [address] [id number] PCP - General Family Medicine 08/07/19 documented as of this encounter
--- OUTSIDE RECORDS SUMMARY | 2024-04-19 00:11 | External Medical Summary | Summary of Care ---
Author Name Unknown Organization [facility] Address [address] [place] [address] Phone [phone] Care Team Providers Care Concrete Saw Operator Name Role Phone Sergio Barriga MD [...] INJECTION BEVACIZUMAB-BVZR, BIOSIMILAR, 10 MG (ZIRABEV), IV Dakota Armando MD [address] [place], [place] [address] Anc Hem/Onc Sharif Kimball DEPT CLOSED - 10/08/[address] [place] [address] [phone] Referral ID Status Reason Start Date Expiration Date V isits Requested Visits Authorized [id number] Authorized 08/30/2023 11/24/2099 999 99 Encounter Details Date Type Department Care Team (Latest Contact Info) Description 11/08/2023 12:45 PM EST Immunization/ Injection Hematology/Oncology Treatment, [place] [address] [place] [address] Nurse, Med [address] [place] [address] [address] Encounter for antineoplastic chemotherapy*; 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); 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 0 Act miley Multi Vitamin Daily Oral Tablet Take by mouth. 0 Act miley Aspirin 81 MG Oral Tablet Delayed Release Take 1 Tablet by mouth in the morning. 0 Active Pancrelipase (Lkk-Unrp-Tawn) 86538-76[address] UNIT Oral Capsule Delayed Release Particles (Creon 78286) 2 cap with meals, 1 with larger [...] Active Amoxicillin-Pot Clavulanate 875-125 MG Oral Tablet (Augmentin)Indicat ions:Pneumonia of right lower lobe due to infectious organism Take 1 Tablet by mouth in the morning and 1 Tablet before bedtime. Do all this for 7 days. 14 Tablet 0 11/05/2023 11/12/2023 Active tiZANidine HCl 2 MG Oral Tablet (Zanaflex)Indicati ons:Muscle strain Take 1 Tablet by mouth every 8 hours as needed for Muscle spasms for up to 10 days. 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 FM GK-ADSE-LRAAZ DIS NEC documented as of this encounter (statuses as of 11/08/2023) Immunizations Name Administration Dates Next Due COVID-19 mRNA, LNP-s, No Pre serve, 2-Dose Series (Dynasil) 01/13/2022,07/21/2021,02/01/2021,01/04 COVID-19, MRNA-LNP, 23-24, P F, 30 MCG/0.3 mL, 12 YRS AND ABOVE, IM ([facility]) 09/12/2023 Covid-19, Mrna, Lnp-s, Pf, B ivalent, 30 Mcg, IM, 12 yrs and above (Dynasil) 08/16/2022 HEP A - Hepatitis A (Adult [...] of this encounter Nursing Notes * Deborah Harrington, RN - 11/08/2023 1:13 PM EST Chair [...] 2:00 PM EST Office Visit Pulmonary Medicine, [facility] [address] [place] [id number] Chris Kaplan MD [address] [place] [address] 12/03/2023 9:10 AM EST Laboratory Laboratory [facility] 200 [facility] [place] [id number] [place], Lab [address] [place] [address] 12/03/2023 10:00 AM EST Hem/Onc Treatment Hematology/Oncology Treatment, [place] [address] [place], [place] [address] Rehana, Chair 8 Hem Onc [address] [place] [address] 12/17/2023 8:45 AM EST Office Visit Hematology/Oncology [facility] [place] [address] [place] [address] Dakota Armando MD 200 [facility] [place] [address] 07/20/2024 10:15 AM EDT Office Visit Dermatology [facility] [address] [place] [address] Cal Jernigan MD 200 [facility] [place] [address] 07/21/2024 1:45 PM EDT Office Visit Hematology/Oncology [facility] 200 [facility] [place] [address] Daokta Armando MD 200 [facility] [place] [address] 07/24/2024 11:40 AM EDT Office Visit Family Practice [facility] [address] [place] [address] Sergio Barriga MD [address] [place] [address] Scheduled Procedures Name Priority Associated Diagnoses Date/Ti [...] this encounter Medical Devices Implanted Type Area Roping Machine Tender Device Identifier Shelf Expiration Date Model / Serial / Lot Stent Viabil Biliary [id number] - [id number] Implanted:Qty : 1 on 07/17/2021 by Guillermo Jones DO at [facility] [employer] [id number] 03/04/2024 [id number] / [id number] / [id number] Port Implant W/8f Poly Cath - [id number] Implanted:Qty : 1 on 09/13/2023 by Gary Rodriguez DO at OR [facility] Right: Chest CR BARD : PERIPHERAL VASCULAR [id number] 04/24/2025 [id number] / / [id number] documented as of this encounter Visit Diagnoses [...] Documents on File Type Date Recorded Patient Glue Spreading Machine Operator Expl anation Advance Directives and [...] Agen mayte (per Health Care Power of Business Info Consultant document) [email or web address] [email or web address] First Alternate Health Care Agent (per Health Care Power of Business Info Consultant document) [email or web address] Care Teams Concrete Saw Operator Relationship Specialty Start Date End Date Sergio Barriga MD [address] [place] [address] PCP - General Family Medicine 08/07/19 documented as of this encounter
--- OUTSIDE RECORDS SUMMARY | 2024-04-19 00:11 | External Medical Summary | Summary of Care ---
Author Name Unknown Organization [facility] Address [address] [facility] [address] Phone [phone] Care Team Providers Care Aerospace Project Engineer Name Role Phone Sergio Barriga MD Primary Care Provider + Reason for Visit * Reason Comments Chemotherapy Chemo/recheck Encounter Details Date Type Department Care Team (Late st Contact Info) Description 11/05/2023 8:30 AM EST Office Visit Hematology/Oncology [facility] 200 [facility] [place] [address] Amber Huizar CRNP 400 [facility] [place] [phone] Malignant neoplasm of body of pancreas (HCC)*; [...] mouth in the morning. 0 Active Pancrelipase (Wlj-Vrhf-Atqf) 26907-16567 UNIT Oral Capsule Delayed Release Particles (Creon 24777) 2 cap with meals, 1 with larger [...] WNL, antiphos lipids WNL Factor V+heteroqygous. FM RU-NQAT-EFWIY DIS NEC documented as of this encounter (statuses as of 11/06/2023) Immunizations Name Administration Dates Next Due COVID-19 mRNA, LNP-s, No Pre serve, 2-Dose Series (Appia) 01/13/2022,07/21/2021,02/01/2021,12/26 COVID-19, MRNA-LNP, 23-24, P F, 30 MCG/0.3 mL, 12 YRS AND ABOVE, IM ([facility]) 09/12/2023 Covid-19, Mrna, Lnp-s, Pf, B ivalent, 30 Mcg, IM, 12 yrs and above (Appia) 08/16/2022 HEP A - Hepatitis A (Adult [...] of this encounter Progress Notes * Amber HuizarCHRISTO - 11/05/2023 8:30 AM EST Hematology/Oncology Outpatient Clinic note [facility]ie [facility] [place] [address] [place] [address] Name: Rafael Cramer Date: 11/04/2023 CHIEF COMPLAINT: [...] received 2nd opinion from medical oncologist from [place] who agreed with treatment plan. Also recommending after 12 treatments with FOLFIRINOX, he may consider the clinical trial of G12C inhibitor. He will need port for upcoming chemotherapy Would like to send the NGS checkup on the liver biopsy specimen ( done at [place]). Component Latest Ref Rng 09/30/2023 CA 19-9 <35.0 U/mL 437.1 (H) HISTORY OF PRESENT ILLNESS: Rafael Cramer is a 73 year old male with a history as outlined above. Currently here for f/u visittoday and consideration for C4D1 of treatment. Was lifting weights this last week. [place] a pop in his right shoulder joint. [...] rolls over in bed pain is excruciating. [place] sick last evening. Was having significant nausea. [...] Chronic insomnia 05/18/2019 Coronary artery disease involving saginaw chippewa coronary artery of sag[place] chippewa heart without angina pectoris 08/20/2022 Severe noted [...] Bilateral Dr Mix COLONOSCOPY 04/02/2017 Dr Eller [facility] 2 polyps 1 tubular adenoma. COLONOSCOPY, DIAGNOSTIC (RECTUM) 09/14/2022 diverticulosis, fair prep, repeat 1 yr / [facility] COLORECTAL CANCER SCREEN;W/FLE 2006 EGD, FLEXIBLE,W/ENDOSCOPIC US 07/12/2021 pancreatic mass, GB sludge, CBD dilation, abnormal lymph nodes / [facility] EGD, W/ENDOSCOPIC US N/A 07/17/2021 ESOPHAGOGASTRODUODENOSCOPY (EGD), FLEXIBLE, TRANSORAL, ENDOSCOPIC ULTRASOUND performed by Guillermo Jones DO at ENDOSCOPY [facility] ERCP 07/12/2021 ERCP, DIAGNOSTIC, SPECIMEN COLLECTION N/A 07/17/2021 ENDOSCOPIC RETROGRADE CHOLANGIOPANCREATOGRAPHY (ERCP) DIAGNOSTIC performed by Guillermo Jones DO atENDOSCOPY [facility] INSER TUNN ACC DEV;5 YRS/OLDER Right 09/13/2023 INSERT TUNNELED CENTRAL VENOUS ACCESS WITH SUBQ PORT performed by Gary Rodriguez DO at OR [facility] IR BIOPSY 08/21/2023 KNEE ARTHROSCOPY/DEBRIDEMENT Left 07/12/[address] Zhu left partial medical meniscectomy & chondroplasty. REMOVE PANCREAS, PARTIAL (WHIPPLE) 08/07/2021 [place]. Robot assisted. Dr Mike Westbrook. REMOVE TONSILS & ADENOIDS, UNDER 12 Tonsillectomy/Adenoids,<12 Y/O SHOULDER ARTHROSCOPY/DEBRIDEMENT Left 08/31/2014 Dr Zhu +biceps tenotomy debride labrum, subacromial decompression & distal clavicle excision. 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 Tobacco Use Smoking status: Never Smokeless tobacco: Never Vaping Use Vaping Use: Never used Substance and Sexual Activity Alcohol use: Yes Comment: 4 drinks/ day had stopped w/CA 2020, now rare. Drug use: Yes Types: Marijuana Comment: oral caps. for appetite, relaxation. Sexual activity: Yes Partners: Female Comment: . 2 stepchildren. [facility] & [place]. no grandkids Other Topics Concern Not on file Social History Narrative Likes gardening. Cabin in [facility]. Likes to weights, walking. Active [place] [employer]. 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 Social Determinants [...] Tablet by mouth in the morning. Pancrelipase (Vxj-Ipcr-Guyb) 93023-[address] UNIT Oral Capsule Delayed Release Particles (Creon 72232) 2 cap with meals, 1 with larger [...] intake 2 daily PET/CT scheduled 11/28/[address] [facility] for restaging Had a long discussion with [...] appointment next week but agreed to send [employer] messagewith update. RTC as scheduled CHRISTO Torres [...] Care as noted on the problem list. [employer] is a way you can talk to [...] 12:45 PM EST Immunization/Injectio n Hematology/Oncology Treatment, [place] [facility] [address] Nurse, Med 4 [address] [place] [address] 11/08/2023 12:45 PM EST Immunization/Injectio n Hematology/Oncology Treatment, [place] [facility] [address] Nurse, Med 4 200 [facility] [place] [address] 11/19/2023 9:00 AM EST Laboratory Laboratory [facility] [address] [place], [place] [address] Rehana, Lab [facility] [address] [place], [place] [address] 11/19/2023 10:00 AM EST Hem/Onc Treatment Hematology/Oncology Treatment, [place] [address] [place], [place] [address] Rehana, Chair 2 Hem Onc [facility] [address] [place], [place] [address] 12/02/2023 2:00 PM EST Office Visit Pulmonary Medicine, [facility] 132 [facility] [place] [address] Chris Kaplan MD [address] [facility] [place] [address] 12/17/2023 8:45 AM EST Office Visit Hematology/Oncology [facility] [address] [place], [place] [address] Dakota Armando MD [address] [place], [place] [address] 07/20/2024 10:15 AM EDT Office Visit Dermatology [facility] [address] [place], [place] [address] Cal Jernigan MD [address] [place], [place] [address] 07/21/2024 1:45 PM EDT Office Visit Hematology/Oncology [facility] [address] [place], [place] [address] Dakota Armando MD [address] [place], [place] [address] 07/24/2024 11:40 AM EDT Office Visit Family Practice [facility] 132 [facility] [place] [address] Sergio Barriga MD [address] [place] [address] Scheduled Procedures Name Priority Associated Diagnoses Date/Ti [...] this encounter Medical Devices Implanted Type Area Wet Finisher Device Identifier Shelf Expiration Date Model / Serial / Lot Stent Viabil Biliary [id number] - [id number] Implanted:Qty : 1 on 07/17/2021 by Guillermo Jones DO at ENDOSCOPY [facility] uma information technology [id number] 03/04/2024 [id number] / [id number] / [id number] Port Implant W/8f Poly Cath - [id number] Implanted:Qty : 1 on 09/13/2023 by Gary Rodriguez DO at OR [facility] Right: Chest CR BARD : PERIPHERAL VASCULAR [id number] 04/24/2025 [id number] / / [id number] documented as of this encounter Procedures Procedure [...] disease. A request was sent to the DENTAL TECHNOLOGIST (Certified Lactation Educator) to notify the responsible provider of these [...] disease. A request was sent to the DENTAL TECHNOLOGIST (Certified Lactation Educator) to notifythe responsible provider of these findings on 11/05/2023 at 12:15 p.m. Amber [facility]ER[facility] (RAD GENERAL) * (ABNORMAL) CA 19-9 (11/04/2023 9:31 AM EST) CA 19-9 310.0(H) <35.0 U/mL 11/05/2023 2:24 PM EST LABORATORY [facility] Blood Venous blood specimen / Unknown Venipuncture / Unknown 11/04/2023 9:31 AM EST 11/04/2023 9:31 AM EST Amber Huizar CHRISTO LAB BLOOD ORDER YEIMI LAB[facility]ATORY [facility] [address] [facility] [place] [address] documented in this encounter Visit Diagnoses [...] Documents on File Type Date Recorded Patient Permanent Mold Supervisor Expl anation Advance Directives and Living [...] Agen t (per Health Care Power of Test Architect document) [email or web address] [email or web address] [email or web address] Sibling First Alternate Health Care Agent (per Health Care Power of Test Architect document) Care Teams Aerospace Project Engineer Relationship Specialty Start Date End Date Sergio Barriga MD [address] [place] [address] PCP - General Family Medicine 08/07/19 documented as of this encounter
--- OUTSIDE RECORDS SUMMARY | 2024-04-19 00:11 | External Medical Summary | Summary of Care ---
Author Name Unknown Organization [facility] Address [address] [place] [address] Phone [phone] Care Team Providers Care Business Law Professor Name Role Phone Sergio Barriga MD Primary Care Provider + Reason for Visit * Reason Comments Procedure Pump disconnect/port flush * Episode Based Medications (Routine) [...] MD [address] [place], [place] [address] Anc Hem/Onc Sharif Kimball DEPT CLOSED - 10/08/[address] [place] [address] [phone] Referral ID Status Reason Start Date Expiration Date V isits Requested Visits Authorized [id number] Authorized 08/30/2023 11/24/2099 999 99 Encounter Details Date Type Department Care Team (Latest Contact Info) Description 11/07/2023 12:45 PM EST Immunization/ Injection Hematology/Oncology Treatment, [place] [address] [place] [address] Nurse, Med [address] [place] [address] [address] Encounter for antineoplastic chemotherapy*; 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); Malignant neoplasm of body of pancreas (HCC); Encounter for adjustment and management of vascular access device Allergies Active Allergy Reactions Criticality Noted Date Comments Lisinopril Cough Low 08/07/2019 documented as of this encounter (statuses as of 11/07/2023) Medications Medication Sig Dispensed Refills Start Date End Date Status Boost 100 Calorie Smart Oral Liquid Take by mouth. 0 Act miley Multi Vitamin Daily Oral Tablet Take by mouth. 0 Act miley Aspirin 81 MG Oral Tablet Delayed Release Take 1 Tablet by mouth in the morning. 0 Active Pancrelipase (Rce-Iyvq-Cvht) 05289-78991 UNIT Oral Capsule Delayed Release Particles (Creon 16905) 2 cap with meals, 1 with larger [...] as of this encounter (statuses as of 11/07/2023) Active Problems Problem Noted Date Diagnosed Date Malignant neoplasm of body of pancreas 3 Metastasis to liver 08/30/2023 Encounter for antineoplastic chemotherapy 2022 History of carcinoma of pancreas 07/18/2023 Post-viral cough syndrome 07/09/2023 Upper airway cough syndrome 07/09/2023 History of 2019 novel coronavirus disease (COVID -19) 10/16/2022 Coronary artery disease invo lving pauma coronary artery of pauma heart without angina pectoris 08/20/2022 Overview: Severe [...] lipids WNL Factor V+heteroqygous. 04/10 colon-Dr Eller [facility] 2 polyps 1 tubular adenoma. Kevin 5y 2013 sleep study [facility] WNL [address] Elena [facility] [...] as of this encounter (statuses as of 11/07/2023) Resolved Problems Problem Noted Date Diagnosed Date [...] WNL, antiphos lipids WNL Factor V+heteroqygous. FM TO-BERY-QSIGU DIS NEC documented as of this encounter (statuses as of 11/07/2023) Immunizations Name Administration Dates Next Due COVID-19 mRNA, LNP-s, No Pre serve, 2-Dose Series ([employer] [place]) 01/13/2022,07/21/2021,02/01/2021,01/04 COVID-19, MRNA-LNP, 23-24, P F, 30 MCG/0.3 mL, 12 YRS AND ABOVE, IM ([facility]) 09/12/2023 Covid-19, Mrna, Lnp-s, Pf, B ivalent, 30 Mcg, IM, 12 yrs and above ([employer] [place]) 08/16/2022 HEP A - Hepatitis A (Adult [...] Nursing Notes * Jing Bray RN - 11/07/2023 1:15 PM EST Chair 7, pump disconnect. Pt reports not feeling well in general and has questions for Dr. Armando about continuing with treatment. Pt stated side effects have been progressively worse with each cycle of treatment, namely loss of appetite, nausea, low energy. CADD pump indicates infusion is complete;reservoir volume = 0ml. CADD clamped/disconnected from VAD. VAD flushed with 10 ml NSS and Heparin 5 ml (100 units/ml). Soriano needle removed intact. Dr. Armando notified of pt's concerns and will see pt in exam room. documented in this encounter Plan of Treatment Upcoming Encounters Date Type Department Care Team (Late st Contact Info) Description 11/08/2023 12:45 PM EST Immunization/Injectio n Hematology/Oncology Treatment, [address] [place] [address] Nurse, Med [address] [place] [address] [place] [address] 12/02/2023 2:00 PM EST Office Visit Pulmonary Medicine, [facility] 132 [facility] [place] [address] Chris Kaplan MD [address] [facility] [address] 12/03/2023 9:10 AM EST Laboratory Laboratory [address] [place] [id number] [place], Lab [address] [place] [address] 12/03/2023 10:00 AM EST Hem/Onc Treatment Hematology/[address]cology [address], [address] [address] Rehana, Chair 8 Hem Onc [address] [place] [address] 12/17/2023 8:45 AM EST Office Visit Hematology/Oncology [facility] [address] [place] [address] Dakota Armando MD 200 [facility] [place], [place] [address] 07/20/2024 10:15 AM EDT Office Visit Dermatology [facility] 200 [facility] [place], [place] [address] Cal Jernigan MD 200 [facility] [place], [place] [address] 07/21/2024 1:45 PM EDT Office Visit Hematology/Oncology [facility] 200 [facility] [place], [place] [address] Dakota Armando MD 200 [facility] [place], [place] [address] 07/24/2024 11:40 AM EDT Office Visit Family Practice [facility] [address] [place] [address] Sergio Barriga MD [address] [place] [address] Scheduled Procedures Name Priority Associated Diagnoses Date/Ti [...] this encounter Medical Devices Implanted Type Area Presser Machine Device Identifier Shelf Expiration Date Model / Serial / Lot Stent Viabil Biliary [id number] - [id number] Implanted:Qty : 1 on 07/17/2021 by Guillermo Jones DO at ENDOSCOPY [facility] [employer] [id number] 03/04/2024 [id number] / [id number] / [id number] Port Implant W/8f Poly Cath - [id number] Implanted:Qty : 1 on 09/13/2023 by Gary Rodriguez DO at OR [facility] Right: Chest CR BARD : PERIPHERAL VASCULAR [id number] 04/24/2025 [id number] / / [id number] documented as of this encounter Visit Diagnoses [...] PRN Other, IV Flush, Starting on Marilia 11/07/23 at 1258, Until Sat11/08/23 at 1257, For 24 hours, Do not flush if lock, PICC, or central line not in place; IV infusing or unable to flush. Given 11/07/2023 1:01 PM EST 500 Units sodium chloride 0.9 % flush central line 10 mL 10 mL, IV Push, PRN Other, IV Flush, Starting on Marilia 11/07/23 at 1258, Until 11/08/23 at 1257, For 24 hours, Do not flush if lock, PICC, or central line not in place; IV infusing or unable to flush. Given 11/07/2023 1:01 PM EST 10 mL documented in this encounter Advance Directives Documents on File Type Date Recorded Patient Electrician Third Expl anation Advance Directives and Living Will [...] Agen t (per Health Care Power of Chicken Boner document) [email or web address] Sibling First Alternate Health Care Agent (per Health Care Power of Chicken Boner document) [email or web address] Teams Business Law Professor Relationship Specialty Start Date End Date Sergio Barriga MD [address] [place] [address] PCP - General Family Medicine 08/07/19 documented as of this encounter
--- OUTSIDE RECORDS SUMMARY | 2024-04-19 00:11 | External Medical Summary ---
Author Name Unknown Address Unknown Organization K01:[facility] [address] [place] [id number] Laboratory Report Ordering Provider Test Date Status EDWARD MAST 12/02/2023 10:19:01 Final Observation Date Value Abnormality Reference (Units) Status Bacteria identified in Specimen by Culture 12/02/2023 10:19:01 No significant growth Final Test: Culture, Urine, Quanti tative
Specimen Source: Urine, Clean Catch
Specimen Type: Urine
Specimen Date: 12/02/2023 10:19 AM
Result Date: 12/03/2023 12:33 PM
Result Status: Final result
Resulting Lab: [facility]
[address]
[facility] [address]

CULTURE

No significant growth

null Performing Location [facility] [address] [facility] [address]
--- OUTSIDE RECORDS SUMMARY | 2024-04-19 00:11 | External Medical Summary | Summary of Care ---
Author Name Unknown Organization [facility] Address [address] [place] [address] Phone [phone] Care Team Providers Care Packager And Strapper Name Role Phone Sergio Barriga MD Primary Care Provider + Reason for Visit * Reason Comments eRx-Medication Refill Encounter Details Date Type Department Care Team (Late st Contact Info) Description 11/20/2023 Refill Family Practice [facility] [address] [place] [address] Sergio Barriga MD [address] [facility] [place] [address] Chronic insomnia Allergies Active Allergy Reactions Criticality Noted Date Comments Lisinopril Cough Low 08/07/2019 documented as of this encounter (statuses as of 11/22/2023) Medications Medication Sig Dispensed Refills Start Date End Date Status Boost 100 Calorie Smart Oral Liquid Take by mouth. 0 Active Multi Vitamin Daily Oral Tablet Take by mouth. 0 Active Aspirin 81 MG Oral Tablet Delayed Release Take 1 Tablet by mouth in the morning. 0 Active Pancrelipase (Ong-Faan-Kwxn) 26441-08450 UNIT Oral Capsule Delayed Release Particles (Creon 10590) 2 cap with meals, 1 with larger [...] FOR SLEEP 30 Tablet 0 11/22/2023 Active ALPRAZolam 1 MG Oral Tablet (xaNAX)Indicatio ns:Chronic insomnia TAKE ONE TABLET BY MOUTH AT BEDTIME NEEDED FOR SLEEP 30 Tablet 0 10/21/2023 3 Discontinued documented as of this encounter (statuses as of 11/22/2023) Active Problems Problem Noted Date Diagnosed Date Malignant neoplasm of body of pancreas 3 Metastasis to liver 08/30/2023 Encounter for antineoplastic chemotherapy 2022 History of carcinoma of pancreas 07/18/2023 Post-viral cough syndrome 07/09/2023 Upper airway cough syndrome 07/09/2023 History of 2019 novel coronavirus disease (COVID -19) 10/16/2022 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 FM FG-VLFI-HKNKH DIS NEC documented as of this encounter (statuses as of 11/22/2023) Immunizations Name Administration Dates Next Due COVID-19 mRNA, LNP-s, No Pre serve, 2-Dose Series (Hstry) 01/13/2022,07/21/2021,02/01/2021,01/04 COVID-19, MRNA-LNP, 23-24, P F, 30 MCG/0.3 mL, 12 YRS AND ABOVE, IM ([facility] 09/12/2023 Covid-19, Mrna, Lnp-s, Pf, B ivalent, 30 Mcg, IM, 12 yrs and above (Hstry) 08/16/2022 HEP A - Hepatitis A (Adult [...] encounter Miscellaneous Notes * Telephone Encounter - Remedios Swenson MD - 11/22/2023 2:56 PM EST Signed Prescriptions: Disp Refills ALPRAZolam 1 MG Oral Tablet (xaNAX) 30 Tab*0 Sig: TAKE ONE TABLET BY MOUTH AT BEDTIME NEEDED FOR SLEEPAuthorizing Provider: REMEDIOS SWENSON * Telephone Encounter - Remedios Swenson MD - 11/22/2023 2:55 PM EST I have reviewed the patient's controlled substance dispensing history in the Prescription Drug Monitoring Program in compliance with the [facility] regulations before prescribing a controlled substance. * Telephone Encounter - Interface, E-Rx Ss Inbound - 11/22/2023 6:57 AM EST Pending Prescriptions: Disp Refills ALPRAZolam 1 MG Oral Tablet [Pharmacy Med *30 Tab*0 Sig: TAKE ONE TABLET BY MOUTH AT BEDTIME NEEDED FOR SLEEP * Telephone Encounter - Eloisa العراقي [facility] - 11/20/2023 4:31 PM ESTPending Prescriptions: Disp Refills ALPRAZolam 1 MG Oral Tablet [Pharmacy Med *30 Tab*0 Sig: TAKE ONE TABLET BY MOUTH AT BEDTIME NEEDED FOR SLEEP * Telephone Encounter - Eloisa العراقي [facility] - 11/20/2023 4:30 PM EST I have reviewed the patients controlled substance dispensing history in the Prescription Drug Monitoring Program in compliance with the [facility] regulations before prescribing a controlled substance. PDMP checked on 11/20/2023. Pending Prescriptions: Disp Refills ALPRAZolam 1 MG Oral Tablet (xaNAX) [Phar*30 Tab*0 Sig: TAKE ONE TABLET BY MOUTH AT BEDTIME NEEDED FOR SLEEP Last Visit: 07/18/2023 (in office), 07/18/2022 (telemedicine) Next Visit: 07/24/2024 Date medication was last filled: 10/22/2023 Date medication is due for refill: 11/20/2023 Pharmacy: [id number] Is this request for a controlled substance? Yes and Urine Drug Screen Not completed Toxicology results: No results found for this or any previous visit. Please approve if appropriate. Thank you, Eloisa العراقي [facility] Clinical Pharmacist Centralized Clinical Pharmacy Services (CCPS) (formerly Telepharmacy) 11/20/23 4:31 PM [phone] documented in this encounter Plan of Treatment Upcoming Encounters Date Type Department Care Team (Late st Contact Info) Description 12/02/2023 10:00 AM EST Laboratory Laboratory [facility] [address] [place] [id number] [place], Lab [facility] [address] [place] [address] 12/02/2023 2:00 PM EST Office Visit Pulmonary Medicine, [facility] [address] [facility] [place] [address] Chris Kaplan MD [address] [facility] [place] [address] 12/03/2023 10:00 AM EST Hem/Onc Treatment Hematology/Oncology Treatment, [place] [address] [place], [place] [address] Rehana, Chair 8 Hem Onc [place] [address] [place] [address] 12/17/2023 8:45 AM EST Office Visit Hematology/Oncology [facility] [place] [address] [place] [address] Dakota Armando MD [address] [place] [address] 07/20/2024 10:15 AM EDT Office Visit Dermatology [facility] [place] [address] [place] [address] Cal Jernigan MD [address] [place] [address] 07/21/2024 1:45 PM EDT Office Visit Hematology/Oncology [facility] [place] [address] [place] [address] Dakota Armando MD 200 [facility] [place] [address] 07/24/2024 11:40 AM EDT Office Visit Family Practice [facility] [address] [place] [address] Sergio Barriga MD [address] [place] [address] Scheduled Procedures Name Priority Associated Diagnoses Date/Ti [...] this encounter Medical Devices Implanted Type Area Checkering Machine Adjuster Device Identifier Shelf Expiration Date Model / Serial / Lot Stent Viabil Biliary [id number] - [id number] Implanted:Qty : 1 on 07/17/2021 by Guillermo Jones DO at ENDOSCOPY [facility] [employer] REYNALDO [id number] 03/04/2024 [id number] / [id number] / [id number] Port Implant W/8f Poly Cath - [id number] Implanted:Qty : 1 on 09/13/2023 by Gary Rodriguez DO at OR [facility] Right: Chest CR BARD : PERIPHERAL VASCULAR [id number] 04/24/2025 [id number] / / [id number] documented as of this encounter Visit Diagnoses Diagnosis Chronic insomnia Insomnia, unspecified documented in this encounter Advance Directives Documents on File Type Date Recorded Patient Policy Advisor Expl anation Advance Directives and Living Will 10/23/2022 4:43 PM Virginie RoseibJeffrey .PDF Latest Code Status on File Code Status Date Activated Date Inactivated Comments Full Code 07/16/2021 10:04 AM 07/18/2021 6:28 PM This order reflects the patients wishes and were consensually agreed upon. Healthcare Agents on File Name Relationship Healthcare Agent Relationship Communication Virginie Cramer Spouse Health Care Agen t (per Health Care Power of Classified Ad Taker document) [email or web address] Temo Cramer Sibling First Alternate Health Care Agent (per Health Care Power of Classified Ad Taker document) [email or web address] Care Teams Packager And Strapper Relationship Specialty Start Date End Date Sergio Barriga MD [address] [place] [address] PCP - General Family Medicine 08/07/19 documented as of this encounter
--- OUTSIDE RECORDS SUMMARY | 2024-04-19 00:11 | External Medical Summary ---
Author Name Unknown Address Unknown Organization K09:[facility] [place] [address] Laboratory Report Ordering Provider Test Date Status JOSE ROY 12/02/2023 10:15:27 Final Observation Date Value Abnormality Reference (Units ) Status BUN 12/02/2023 10:15:27 14 6-20 (mg/dL) Final Creatinine 12/02/2023 10:15:27 1.1 0.6-1.2 (mg/dL) Final Glomerular filtration rate/1.73 sq M.predicted [Volume Rate/Area] in Serum, Plasma or Blood by Creatinine-based formula (CKD-EPI) 12/02/2023 10:15:27 75 >=60 (mL/min) Final eGFR is calculated based on the CKD-EPI 2020 equation SODIUM 12/02/2023 10:15:27 135 135-146 (m mol/L) Final Potassium 12/02/2023 10:15:27 3.9 3.5-5.1 (m mol/L) Final Cl 12/02/2023 10:15:27 97 Below low normal 98- 107 (mmol/L) Final CO2 12/02/2023 10:15:27 24 22-32 (mmo l/L) Final Anion gap 12/02/2023 10:15:27 14 7-15 (mmol /L) Final Glucose 12/02/2023 10:15:27 126 Above high normal 70 -120 (mg/dL) Final Albumin 12/02/2023 10:15:27 3.9 3.8-5.0 (g /dL) Final AST (Aspartate aminotransferase) 12/02/2023 10:15:27 50 10-50 (U/L) Fin al Alk Phos 12/02/2023 10:15:27 195 Above high normal 35 -130 (U/L) Final Bilirubin, Total 12/02/2023 10:15:27 0.6 <=1 .2 (mg/dL) Final Calcium 12/02/2023 10:15:27 9.1 8.4-10.2 ( mg/dL) Final Protein 12/02/2023 10:15:27 7.2 6.0-8.3 (g /dL) Final ALT (Alanine aminotransferase) 12/02/2023 10:15:27 45 10-50 (U/L) Silverio baker Performing Location [facility] [address] [place] [address]
--- OUTSIDE RECORDS SUMMARY | 2024-04-19 00:11 | External Medical Summary ---
Author Name Unknown Address Unknown Organization K01:[facility] - [address] [place] [address] Laboratory Report Ordering Provider Test Date Status JOSE ROY 12/02/2023 10:15:27 Final Observation Date Value Abnormality Reference (Units ) Status Cancer Ag 19-9 12/02/2023 10:15:27 446.4 Above high norm al <35.0 (U/mL) Final Performing Location [facility] - [address] [place] [address]
--- OUTSIDE RECORDS SUMMARY | 2024-04-19 00:11 | External Medical Summary ---
Author Name Unknown Address Unknown Organization K09:[facility] [place] [address] [address] Laboratory Report Ordering Provider Test Date Status JOSE ROY 12/02/2023 10:15:27 Final Observation Date Value Abnormality Reference (Units ) Status SYNC LEUKOCYTES IN BLOOD BY AUTOMATED COUNT 12/02/2023 10:15:27 42.25 Above upper panic limits 4.00-10.80 (K/uL) Final Neutrophils/100 leukocytes in Blood by Manual count 12/02/2023 10:15:27 87.0 Above high normal 40.0-75.0 (%) Final Lymphocytes/100 leukocytes in Blood by Manual count 12/02/2023 10:15:27 7.0 Below low normal 18.0-42.0 (%) Final Monocytes/100 leukocytes in Blood by Manual count 12/02/2023 10:15:27 6.0 1.0-11.0 (%) Final Neutrophils [#/volume] in Blood by Manual count 12/02/2023 10:15:27 36.76 Above high normal 1.80-7.70 (K/uL) Final Lymphocytes [#/volume] in Blood by Manual count 12/02/2023 10:15:27 2.96 1.00-4.80 (K/uL) Final Monocytes [#/volume] in Blood by Manual count 12/02/2023 10:15:27 2.54 Above high normal 0.00-1.10 (K/uL) Final Nucleated erythrocytes/100 leukocytes [Ratio] in Blood by Automated count 12/02/2023 10:15:27 Final Acanthocytes [Presence] in Blood by Light microscopy 12/02/2023 10:15:27 Moderate Abnormal None Seen Final Elliptocytes [Presence] in Blood by Light microscopy 12/02/2023 10:15:27 Moderate Abnormal None Seen Final Schistocytes 12/02/2023 10:15:27 Few Abnormal None Seen Final Performing Location [facility] [place] [address]
--- OUTSIDE RECORDS SUMMARY | 2024-04-19 00:11 | External Medical Summary ---
Author Name Unknown Address Unknown Organization K09:[facility] [place] [address] Laboratory Report Ordering Provider Test Date Status EDWARD MAST 12/02/2023 10:19:14 Final Observation Date Value Abnormality Reference (Units ) Status RBC, Urine 12/02/2023 10:19:14 0-2 0-2 (/HPF) Final WBC, Urine 12/02/2023 10:19:14 0-2 0-2 (/HPF) Final Bacteria [#/area] in Urine sediment by Microscopy high power field 12/02/2023 10:19:14 0-25 0-25 (/HPF) Final Hyaline casts, Urine 12/02/2023 10:19:14 1-4 Abnormal None (/LPF) Final Performing Location [facility] [place] [address]
--- OUTSIDE RECORDS SUMMARY | 2024-04-19 00:11 | External Medical Summary ---
Author Name Unknown Address Unknown Organization K09:[facility] [address] [place] [address] Laboratory Report Ordering Provider Test Date Status EDWARD MAST 12/02/2023 10:19:14 Final Observation Date Value Abnormality Reference (Units ) Status Color of Urine by Auto 12/02/2023 10:19:14 Yellow Light Yellow, Yellow, Dark Yellow Final Clarity, Urine 12/02/2023 10:19:14 Clear Clear Final Glucose [Mass/volume] in Urine by Automated test strip 12/02/2023 10:19:14 Negative Negative (mg/dL) Final Bilirubin.total [Presence] in Urine by Automated test strip 12/02/2023 10:19:14 Negative Negative Final Ketones [Mass/volume] in Urine by Automated test strip 12/02/2023 10:19:14 Trace Abnormal Negative (mg/dL) Final Specific gravity, Urine 12/02/2023 10:19:14 1.015 1.003-1.030 Final Hemoglobin [Presence] in Urine by Automated test strip 12/02/2023 10:19:14 Negative Negative Final pH, Urine 12/02/2023 10:19:14 7.0 5.0-7.5 (Units) Final Protein [Mass/volume] in Urine by Automated test strip 12/02/2023 10:19:14 100 Abnormal Negative (mg/dL) Final Urobilinogen [Mass/volume] in Urine by Automated test strip 12/02/2023 10:19:14 1.0 0.2, 1.0 (mg/dL) Final Nitrite [Presence] in Urine by Automated test strip 12/02/2023 10:19:14 Negative Negative Final Leukocyte esterase [Presence] in Urine by Automated test strip 12/02/2023 10:19:14 Negative Negative Final Performing Location [facility] [place] [address]
--- OUTSIDE RECORDS SUMMARY | 2024-04-19 00:11 | External Medical Summary | Summary of Care ---
Author Name Unknown Organization [facility] Address [address] [place] [address] Phone [phone] Care Team Providers Care Fish Farm Laborer Name Role Phone Sergio Barriga MD Primary Care Provider + Reason for Visit * Reason Comments Treatment * Episode Based Medications (Routine) - Authorized Specialty Diagnoses / Procedures Referred By Contlexii t Referred To Contact Diagnoses Encounter for antineoplastic chemotherapy 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) Malignant neoplasm of body of pancreas (HCC) Procedures IN LEUCOVORIN CALCIUM INJECTION IN FLUOROURACIL INJECTION IN IRINOTECAN INJECTION IN OXALIPLATIN IN FOSAPREPITANT INJECTION BEVACIZUMAB-BVZR, BIOSIMILAR, 10 MG (ZIRABEV), IV Dakota Armando MD [address] [place], [place] [address] Anc Hem/Onc [address] DEPT CLOSED - 10/08/23 [address] [facility] [place] [address] Referral ID Status Reason Start Date Expiration Date V isits Requested Visits Authorized [id number] Authorized 08/30/2023 11/24/2099 999 99 Encounter Details Date Type Department Care Team (Latest Contact Info) Description 11/05/2023 9:00 AM EST Hem/Onc Treatment Hematology/Oncolog y Treatment, [place] [address] [place] [address] Rehana, Chair 7 Hem Onc [address] [place] [address] Encounter for antineoplastic chemotherapy*; Metastasis to liver [...] mouth in the morning. 0 Active Pancrelipase (Ggi-Sgiy-Lhjs) 87683-93232 UNIT Oral Capsule Delayed Release Particles (Creon 95980) 2 cap with meals, 1 with larger [...] WNL, antiphos lipids WNL Factor V+heteroqygous. FM [id number]-GKUD-JJJZP DIS NEC documented as of this encounter (statuses as of 11/05/2023) Immunizations Name Administration Dates Next Due COVID-19 mRNA, LNP-s, No Pre serve, 2-Dose Series (E-Diversify Yourself) 01/13/2022,07/21/2021,02/01/2021,01/04 COVID-19, MRNA-LNP, 23-24, P F, 30 MCG/0.3 mL, 12 YRS AND ABOVE, IM [facility] 09/12/2023 Covid-19, Mrna, Lnp-s, Pf, B ivalent, 30 Mcg, IM, 12 yrs and above (E-Diversify Yourself) 08/16/2022 HEP A - Hepatitis A (Adult [...] of this encounter Nursing Notes * Idalia Berry, SUDEEP - 11/05/2023 9:55 AM EST Safety and [...] 12:45 PM EST Immunization/Injectio n Hematology/[address]cology Treatment, [address] [address] Nurse, Med [address] [place] [address] [place] [address] 11/08/2023 12:45 PM EST Immunization/Injectio n Hematology/Oncology Treatment, [address] [address] Nurse, Med 4 [address] [place] [address] 11/19/2023 9:00 AM EST Laboratory Laboratory [facility] [address] [place] [id number] [place], Lab [address] [facility] [place] [address] 11/19/2023 10:00 AM EST Hem/Onc Treatment Hematology/Oncology Treatment, [place] [address] [facility] [place] [address] Rehana, Chair 2 Hem Onc [address] [place] [address] 12/02/2023 2:00 PM EST Office Visit Pulmonary Medicine, [facility] [address] [place] [address] Chris Kaplan MD [address] [place] [address] 12/17/2023 8:45 AM EST Office Visit Hematology/Oncology [facility] [address] [place] [address] Dakota Armando MD [address] [facility] [place] [address] 07/20/2024 10:15 AM EDT Office Visit Dermatology [facility] [address] [facility] [place] [address] Cal Jernigan MD [address] [facility] [place] [address] 07/21/2024 1:45 PM EDT Office Visit Hematology/Oncology [facility] [address] [place] [address] Dakota Armando MD [address] [facility] [place] [address] 07/24/2024 11:40 AM EDT Office Visit Family Practice [facility] [address] [place] [address] Sergio Barriga MD [address] [place] [address] Scheduled Procedures Name Priority Associated Diagnoses Date/Ti [...] this encounter Medical Devices Implanted Type Area Handle Lathe Operator Device Identifier Shelf Expiration Date Model / Serial / Lot Stent Viabil Biliary [id number] - [id number] Implanted:Qty : 1 on 07/17/2021 by Guillermo Jones DO at [facility] [employer] RE[employer]NALD[employer] [id number] 03/04/2024 [id number] / [id number] / [id number] Port Implant W/8f Poly Cath - [id number] Implanted:Qty : 1 on 09/13/2023 by Gary Rodriguez DO at OR [facility] Right: Chest CR BARD : PERIPHERAL VASCULAR [id number] 04/24/2025 [id number] / / [id number] documented as of this encounter Visit Diagnoses [...] on Sat11/05/23 at 1015, Until Sat11/05/23 at 2013 Start Infusion 11/05/2023 9:36 AM EST 500 mL 50 mL/hr diphenhydrAMINE (Benadryl) inj 50 mg 50 mg, IV Push, ONCE PRN Other, Hypersensitivity Reaction, Starting on Sat11/05/23 at 0936, Until Sat11/06/23 at 0935, For 24 hours EPINEPHrine 1 MG/ML inj 0.3 mg 0.3 mg, Intramuscular, ONCE PRN Other, Hypersensitivity Reaction or Anaphylaxis, Starting on Sat11/05/23 at 0936, Until Sat11/06/23 at 0935, For 24 hours hEParin 100 UNIT/ML Lock Flush inj 500 Units 500 Units (5 mL), IV Lock, PRN Other, IV Flush, Starting on Sat11/05/23 at 0936, Until Sat11/06/23 at 0935, For 24 hours, Do not flush if lock, PICC, or central line not in place; IV infusing or unable to flush. Hydrocortisone Sod Suc (PF) (Solu-Cortef) inj 100 mg 100 mg, IV Push, ONCE PRN Other, Hypersensitivity Reaction, Starting on Sat11/05/23 at 0936, Until Sat11/06/23 at 0935, For 24 hours oxygen GAS Inhalation, OXYGEN, First dose on Sat11/05/23 at 1015, Until Discontinued, Device/Managed by: Low [...] Push, PRN Other, IV Flush, Starting on Sat11/05/23 at 0936, Until Sat11/06/23 at 0935, For 24 hours, Do not flush if [...] Given 11/05/2023 12:49 PM EST 0.4 mg Fluorouracil (5-Fu) 4,300 [...] Documents on File Type Date Recorded Patient Learning Design Specialist Expl anation Advance Directives and Living Will 10/23/2022 4:43 PM Virginie Holliaherbie Cramer KarlLibhartLivingWill .PDF Latest Code Status on File Code Status Date Activated Date Inactivated Comments Full Code 07/16/2021 10:04 AM 07/18/2021 6:28 PM This order reflects the patients wishes and were consensually agreed upon. Healthcare Agents on File Name Relationship Healthcare Agent Relationship Communication Virginie Cramer Spouse Health Care Agen t (per Health Care Power of Allergist/Pediatric Pulmonologist document) [email or web address] Temo Bela Sibling First Alternate Health Care Agent (per Health Care Power of Allergist/Pediatric Pulmonologist document) [email or web address] Care Teams Fish Farm Laborer Relationship Specialty Start Date End Date Sergio Barriga MD [address] [place] [address] PCP - General Family Medicine 08/07/19 documented as of this encounter
--- OUTSIDE RECORDS SUMMARY | 2024-04-19 00:12 | External Medical Summary | Summary of Care ---
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) Procedures WV LEUCOVORIN CALCIUM INJECTION WV FLUOROURACIL INJECTION WV IRINOTECAN INJECTION WV OXALIPLATIN WV FOSAPREPITANT INJECTION BEVACIZUMAB-BVZR, BIOSIMILAR, 10 MG (ZIRABEV), IV Dakota Armando MD [address] [place], [place] [address] Anc Hem/Onc Sharif Kimball DEPT CLOSED - 10/08/[address] [place] [phone] Referral ID Status Reason Start Date Expiration Date V isits Requested Visits Authorized [id number] Authorized 08/30/2023 11/24/2099 999 99 Encounter Details Date Type Department Care Team (Latest Contact Info) Description 10/25/2023 11:45 AM EST Immunization/ Injection Hematology/Oncology Treatment, [place] [address] [place] [address] Nurse, Med [address] [place] [address] [address] Encounter for antineoplastic chemotherapy*; Metastasis to liver (HCC); Malignant neoplasm of body of pancreas (HCC) Allergies Active Allergy Reactions Criticality Noted Date Comments Lisinopril Cough Low 08/07/2019 documented as of this encounter (statuses as of 10/25/2023) Medications Medication Sig Dispensed Refills Start Date End Date Status Boost 100 Calorie Smart Oral Liquid Take by mouth. 0 Act miley Multi Vitamin Daily Oral Tablet Take by mouth. 0 Act miley Aspirin 81 MG Oral Tablet Delayed Release Take 1 Tablet by mouth in the morning. 0 Active Pancrelipase (Syf-Glzh-Zvsz) 76543-71145 UNIT Oral Capsule Delayed Release Particles (Creon 33913) 2 cap with meals, 1 with larger [...] EVERY MORNING 90 Tablet 3 07/03/2023 Active Omeprazole 20 MG Oral Capsule Delayed Release (PriLOSEC) Take 1 Capsule by mouth in the morning. 0 Active Lidocaine-Prilocai ne 2.5-2.5 % External Cream (Emla)Indications: Malignant neoplasm of body of pancreas (HCC),Metastasis to liver (HCC) APPLY TO SKIN OVER MEDIPORT & COVER 1HR PRIOR TO ACCESSING. 30 g 1 08/30/2023 Active Additional Information Patient not taking.Reported on 09/27/2023 Ondansetron HCl 8 MG Oral Tablet (Zofran)Indication s:Malignant neoplasm of body of pancreas (HCC),Metastasis to liver (HCC) Take 1 Tablet by mouth every 8 hours as needed for Nausea. 30 Tablet 3 08/30/2023 Active Additional Information Patient not taking.Reported on 09/27/2023 Prochlorperazine Maleate 10 MG Oral Tablet (Compazine)Indicat [...] chemo cycle 48 Tablet 0 08/30/2023 Active Additional Information Patient not taking.Reported on 09/27/2023 Loratadine 10 MG Oral Tablet (Claritin)Indicati ons:Malignant neoplasm of body of pancreas (HCC),Metastasis to liver (HCC) Take 1 tablet daily x5 days starting the day of chemo pump disconnect 60 Tablet 0 09/03/2023 Active Additional Information Patient not taking.Reported on 09/27/2023 Atorvastatin Calcium 40 MG Oral Tablet (Lipitor) TAKE 1 TABLET BY MOUTH EVERY MORNING 90 Tablet 2 09/25/2023 Active ALPRAZolam 1 MG Oral Tablet (xaNAX)Indications :Chronic insomnia TAKE ONE TABLET BY MOUTH AT BEDTIME NEEDED FOR SLEEP 30 Tablet 0 10/21/2023 Active documented as of this encounter (statuses as of 10/25/2023) Active Problems Problem Noted Date Diagnosed Date [...] 2013 sleep study [facility] WNL [address] Elena [facility] [...] as of this encounter (statuses as of 10/25/2023) Resolved Problems Problem Noted Date Diagnosed Date [...] WNL, antiphos lipids WNL Factor V+heteroqygous. FM PX-ZHVC-ENBAW DIS NEC documented as of this encounter (statuses as of 10/25/2023) Immunizations Name Administration Dates Next Due COVID-19 mRNA, LNP-s, No Pre serve, 2-Dose Series ([employer]) 01/13/2022,07/21/2021,02/01/2021,01/04 COVID-19, MRNA-LNP, 23-24, P F, 30 MCG/0.3 mL, 12 YRS AND ABOVE, IM [facility] 09/12/2023 Covid-19, Mrna, Lnp-s, Pf, B ivalent, 30 Mcg, IM, 12 yrs and above ([employer]) 08/16/2022 HEP A - Hepatitis A (Adult > 18 yrs) 10/16/2022 Hepatitis B Vaccine, Recombi nant, Adjuvanted, 20 mcg/mL (Heplisav-B) 05/27/2023,11/27/2022 Hepatitis B, 20+ yrs 10/25/2022 Pneumococcal Conjugate Vacc, 13 Valent (Prevnar) 08/07/2019 Pneumococcal Polysaccharide PPV23 (Pneumovax) 08/12/2020 SEASONAL INFLUENZA, PF, 6 M & Above, IM , (FLULAVAL or FLUZONE) 08/15/2020 Seasonal Influenza Virus Vac cine, Unspecified Formulation 12/29/2019 Seasonal Influenza, Quadriva lent Hd (Fluzone Hd) [...] Nursing Notes * Nereyda Xiao LPN - 10/25/2023 1:47 PM EST Pt arrived for Udencya injection. Administered in RACHELL. Pt tolerated well. Discharged in stable condition. documented in this encounter Plan of Treatment Upcoming Encounters Date Type Department Care Team (Late st Contact Info) Description 11/04/2023 9:30 AM EST Laboratory Laboratory [facility] [address] [place] [id number] [place], Lab [facility] [address] [place] [address] 11/05/2023 8:30 AM EST Office Visit Hematology/Oncology [facility] [address] [place] [address] Amber Huizar CRNP 400 [facility] [place] [id number] 11/05/2023 9:00 AM EST Hem/Onc Treatment Hematology/Oncology Treatment, [place] [address] [facility] [address] [place], [place] [address] [place]hana, Chair 7 Hem Onc [address] [place] [address] 12/02/2023 2:00 PM EST Office Visit Pulmonary Medicine, [facility] [address] [facility] [place] [address] Chris [facility] [address] [facility] [address] 12/17/2023 8:45 AM EST Office Visit Hematology/Oncology [facility] [address] [place] [address] Dakota Armando MD [address] [place] [address] 07/20/2024 10:15 AM EDT Office Visit Dermatology [facility] [address] [place], [place] [address] Cal Jernigan MD [address] [place] [address] 07/21/2024 1:45 PM EDT Office Visit Hematology/Oncology [facility] Rehana [place] 200 [facility] [place], [place] [address] Dakota Armando MD 200 [facility] [place] [address] 07/24/2024 11:40 AM EDT Office Visit Family [facility] [address] [place] [address] Sergio Barriga MD [address] [place] [address] Scheduled Procedures Name Priority Associated Diagnoses Date/Ti me COLONOSCOPY FLEXIBLE PROXIMA L DIAGNOSTIC Recall History of adenomatous polyp of colon Health Maintenance Due Date Last Done Comments Depression Screening 09/10/2023 09/10/2022 COLONOSCOPY-ANNUAL AGES 18-100 09/14/2023 09/14/2022, 09/14/2022, 04/02/2017 GFR 10/21/2024 10/21/2023, 04/2023, 09/16/2023, Additional history exists Albumin/Creatinine Ratio 10/16/2025 10/16/2022, [...] encounter Medical Devices Implanted Type Area Traffic Control Technician Device Identifier Shelf Expiration Date Model / Serial / Lot Stent Viabil Biliary [id number] - [id number] Implanted:Qty : 1 on 07/17/2021 by Guillermo Jones DO at ENDOSCOPY [facility] [employer] REYNALDO [id number] 03/04/2024 [id number] / [id number] / [id number] Port Implant W/8f Poly Cath - [id number] Implanted:Qty : 1 on 09/13/2023 by Gary Rodriguez DO at OR [facility] Right: Chest CR BARD : PERIPHERAL VASCULAR [id number] 04/24/2025 [id number] / / [id number] documented as of this encounter Visit Diagnoses [...] 6 mg 6 mg, Subcutaneous, ONCE, On Sat10/25/23 at 1215, For 1 dose Given 10/25/2023 11:57 AM EST 6 mg Arm Right Upper documented in this encounter Advance Directives Documents on File Type Date Recorded Patient Database Reporting Consultant Expl anation Advance Directives and Living Will 10/23/2022 4:43 PM Virginie HansenlLibhartLivingWiyonas .PDF Latest Code Status on File Code Status Date Activated Date Inactivated Comments Full Code 07/16/2021 10:04 AM 07/18/2021 6:28 PM This order reflects the patients wishes and were consensually agreed upon. Healthcare Agents on File Name Relationship Healthcare Agent Relationship Communication Virginie Cramer Spouse Health Care Carolyn hu (per Health Care Power of Inspector Final Assembly Conveyor Line document) [email or web address] Temo Cramer Sibling First Alternate Health Care Agent (per Health Care Power of Inspector Final Assembly Conveyor Line document) Care Teams Transmission Systems Operator Relationship Specialty Start Date End Date Sergio Barriga MD [address] [place] [address] PCP - General Family Medicine 08/07/19 documented as of this encounter
--- OUTSIDE RECORDS SUMMARY | 2024-04-19 00:12 | External Medical Summary | Summary of Care ---
Author Name Unknown Organization [facility] Address [address] [place] [address] Phone [phone] Care Team Providers Care Automatic Data Processing Planner Name Role Phone Sergio Barriga MD [...] MD [address] [place], [place] [address] Anc Hem/Onc Sharif Kimball DEPT CLOSED - 10/08/[address] [place] [address] [phone] Referral ID Status Reason Start Date Expiration Date V isits Requested Visits Authorized [id number] Authorized 08/30/2023 11/24/2099 999 99 Encounter Details Date Type Department Care Team (Latest Contact Info) Description 10/24/2023 11:45 AM EST Immunization/ Injection Hematology/Oncology Treatment, [place] [address] [place] [address] Nurse, Med [address] [place] [address] [address] Encounter for antineoplastic chemotherapy*; Metastasis to liver (HCC); Malignant neoplasm of body of pancreas (HCC) Allergies Active Allergy Reactions Criticality Noted Date Comments Lisinopril Cough Low 08/07/2019 documented as of this encounter (statuses as of 10/24/2023) Medications Medication Sig Dispensed Refills Start Date End Date Status Boost 100 Calorie Smart Oral Liquid Take by mouth. 0 Act miley Multi Vitamin Daily Oral Tablet Take by mouth. 0 Act miley Aspirin 81 MG Oral Tablet Delayed Release Take 1 Tablet by mouth in the morning. 0 Active Pancrelipase (Phd-Zuhj-Mxlf) 43097-05071 UNIT Oral Capsule Delayed Release Particles (Creon 33883) 2 cap with meals, 1 with larger [...] as of this encounter (statuses as of 10/24/2023) Active Problems Problem Noted Date Diagnosed Date [...] lipids WNL Factor V+heteroqygous. 04/10 colon-Dr Eller [facility] 2 polyps 1 tubular [...] as of this encounter (statuses as of 10/24/2023) Resolved Problems Problem Noted Date Diagnosed Date [...] WNL, antiphos lipids WNL Factor V+heteroqygous. FM YS-KBWA-AVYNV DIS NEC documented as of this encounter (statuses as of 10/24/2023) Immunizations Name Administration Dates Next Due COVID-19 mRNA, LNP-s, No Pre serve, 2-Dose Series ([email or web address]) 01/13/2022,07/21/2021,02/01/2021,01/04 COVID-19, MRNA-LNP, 23-24, P F, 30 MCG/0.3 mL, 12 YRS AND ABOVE, IM ([facility]) 09/12/2023 Covid-19, Mrna, Lnp-s, Pf, B ivalent, 30 Mcg, IM, 12 yrs and above ([email or web address]) 08/16/2022 HEP A - Hepatitis A (Adult [...] Nursing Notes * Demi Wolff RN - 10/24/2023 2:44 PM EST Pt arrives at clinic with home 5FU infusion pump completed. He's states he's doing OK and denies any issues. Pump removed. VAD flushed per protocol and joyner needle removed. Patient tolerated treatment well and was discharged in stable condition. documented in this encounter Plan of Treatment Upcoming Encounters Date Type Department Care Team (Late st Contact Info) Description 10/25/2023 11:45 AM EST Immunization/Injecti on Hematology/Oncology Treatment, [place] 200 [place] [address] Nurse, Med 4 200 [facility] [place] [address] 11/04/2023 9:30 AM EST Laboratory Laboratory [address] [place] [id number] Issue, Lab [address] [place] [address] 11/05/2023 8:30 AM EST Office Visit Hematology/Oncology [address] [place] [address] Amber Huizar CRNP 400 [place] [address] 11/05/2023 9:00 AM EST Hem/Onc Treatment Hematology/Oncology Treatment, [place] 200 [facility], [place] [address] [place], Chair 7 Hem Onc [address] [place] [address] 12/02/2023 2:00 PM EST Office Visit Pulmonary Medicine, [facility] 132 [place] [address] Chris Kaplan MD [address] [facility] [place] [address] 12/17/2023 8:45 AM EST Office Visit Hematology/Oncology [address] [place] [address] Dakota Armando MD 200 [facility] [place] [address] 07/20/2024 10:15 AM EDT Office Visit Dermatology [facility] [address] [place] [address] Cal Jernigan MD 200 [facility] [place] [address] 07/21/2024 1:45 PM EDT Office Visit Hematology/Oncology [facility] 200 [facility] [place] [address] Dakota Armando MD 200 [facility] [place] [address] 07/24/2024 11:40 AM EDT Office Visit Family Practice [facility] [address] [facility] [place] [address] Sergio Barriga MD [address] [place] [address] Scheduled Procedures Name Priority Associated Diagnoses Date/Ti [...] this encounter Medical Devices Implanted Type Area Wildlife Officer Device Identifier Shelf Expiration Date Model / Serial / Lot Stent Viabil Biliary [id number] - [id number] Implanted:Qty : 1 on 07/17/2021 by Guillermo Jones DO at [facility]OSCOPY [facility] [employer] [id number] 03/04/2024 [id number] / [id number] / [id number] Port Implant W/8f Poly Cath - [id number] Implanted:Qty : 1 on 09/13/2023 by Gary Rodriguez DO at OR [facility] Right: Chest CR BARD : PERIPHERAL VASCULAR [id number] 04/24/2025 [id number] / / [id number] documented as of this encounter Visit Diagnoses [...] PRN Other, IV Flush, Starting on Marilia 10/24/23 at 1207, Until Sat10/25/23 at 1206, For 24 hours, Do not flush if lock, PICC, or central line not in place; IV infusing or unable to flush. Given 10/24/2023 12:09 PM EST 500 Units sodium chloride 0.9 % flush central line 10 mL 10 mL, IV Push, PRN Other, IV Flush, Starting on Marilia 10/24/23 at 1207, Until Sat10/25/23 at 1206, For 24 hours, Do not flush if lock, PICC, or central line not in place; IV infusing or unable to flush. Given 10/24/2023 12:08 PM EST 10 mL documented in this encounter Advance Directives Documents on File Type Date Recorded Patient Nut Culler Expl anation Advance Directives and Living Will [...] Agen t (per Health Care Power of Clinic Assistant document) @[email or web address] Temo Cramer Sibling First Alternate Health Care Agent (per Health Care Power of Clinic Assistant document) [email or web address] Care Teams Automatic Data Processing Planner Relationship Specialty Start Date End Date Sergio Barriga MD [address] [place] [address] PCP - General Family Medicine 08/07/19 documented as of this encounter
--- OUTSIDE RECORDS SUMMARY | 2024-04-19 00:12 | External Medical Summary | Summary of Care ---
Author Name Unknown Organization [facility] Address [address] [place] [address] Phone [phone] Care Team Providers Care Reliability Engineer Name Role Phone Sergio Barriga MD Primary Care Provider + Encounter Details Date Type Department Care Team (Late st Contact Info) Description 11/04/2023 Orders Only [facility] [address] [place] [address] Dakota Armando MD [address] [facility] [place] [address] Allergies Active Allergy Reactions Criticality Noted Date Comments Lisinopril Cough Low 08/07/2019 documented as of this encounter (statuses as of 11/04/2023) Medications Medication Sig Dispensed Refills Start Date End Date Status Boost 100 Calorie Smart Oral Liquid Take by mouth. 0 Act miley Multi Vitamin Daily Oral Tablet Take by mouth. 0 Act miley Aspirin 81 MG Oral Tablet Delayed Release Take 1 Tablet by mouth in the morning. 0 Active Pancrelipase (Xex-Fllc-Apdf) 26049-70617 UNIT Oral Capsule Delayed Release Particles (Creon 30830) 2 cap with meals, 1 with larger [...] FOR SLEEP 30 Tablet 0 10/21/2023 Active Hospital, Clinic, or Other Facility Administered Medication Ordered Dose Route Frequency Start Date End Date Status Fluorouracil (5-Fu) 4,300 mg in NSS 138 mL infusion 4300 mg IV CONTINUOUS 11/04/2023 11/06/2023 Active documented as of this encounter (statuses as of 11/04/2023) Active Problems Problem Noted Date Diagnosed Date Malignant neoplasm of body of pancreas 3 Metastasis to liver 08/30/2023 Encounter for antineoplastic chemotherapy 2022 History of carcinoma of pancreas 07/18/2023 Post-viral cough syndrome 07/09/2023 Upper airway cough syndrome 07/09/2023 History of 2019 novel coronavirus disease (COVID -19) 10/16/2022 Coronary artery disease invo lving [place] coronary artery of [place] heart without angina pectoris 08/20/2022 Overview: Severe [...] as of this encounter (statuses as of 11/04/2023) Resolved Problems Problem Noted Date Diagnosed Date [...] WNL, antiphos lipids WNL Factor V+heteroqygous. FM RX-YKYQ-NAMNX DIS NEC documented as of this encounter (statuses as of 11/04/2023) Immunizations Name Administration Dates Next Due COVID-19 mRNA, LNP-s, No Pre serve, 2-Dose Series ([email or web address]) 01/13/2022,07/21/2021,02/01/2021,01/04 COVID-19, MRNA-LNP, 23-24, P F, 30 [...] Care Team (Latest Contact Info) Description 11/05/2023 8:30 AM EST Office Visit Hematology/Oncolog y [facility] [address] [facility] [place] [address] Amber Huizar CRNP [address] [place], [place] [address] [address] 11/05/2023 9:00 AM EST Hem/Onc Treatment Hematology/Oncolog y Treatment, [place] [address] [place] [address] Rehana, Chair 7 Hem Onc [address] [place] [address] Encounter for antineoplastic chemotherapy*; Metastasis to liver (HCC); Malignant neoplasm of body of pancreas (HCC) 11/19/2023 7:40 AM EST Laboratory Laboratory [facility] Rehana [place] [address] [place] [phone] Rehana Lab [facility] [address] [place] [address] 11/19/2023 8:45 AM EST [facility] [address] [place] [address] Park, Chair 2 Hem Onc [facility] [address] [place], [place] [address] 12/02/2023 2:00 PM EST Office Visit Pulmonary Medicine, [facility] [address] [facility] [address] Chris Kaplan MD [address] [place] [address] 12/17/2023 8:45 AM EST Office Visit Hematology/Oncolog y [facility] [address] [place], [place] [address] Dakota Armando MD [address] [place], [place] [address] 07/20/2024 10:15 AM EDT Office Visit Dermatology [facility] [address] [place], [place] [address] Cal Jernigan MD [address] [place], [place] [address] 07/21/2024 1:45 PM EDT Office Visit Hematology/Oncolog y [facility] [address] [place], [place] [address] Dakota Armando MD [address] [place], [place] [address] 07/24/2024 11:40 AM EDT Office Visit Family Practice [facility] 132 [facility] [place] [address] Sergio Barriga MD 132 [facility] [place] [address] Scheduled Procedures Name Priority Associated Diagnoses Date/Ti [...] this encounter Medical Devices Implanted Type Area Peoplesoft Hrms Developer Device Identifier Shelf Expiration Date Model / Serial / Lot Stent Viabil Biliary [id number] - [id number] Implanted:Qty : 1 on 07/17/2021 by Guillermo Jones DO at ENDOSCOPY [facility] [employer] REYNALDO [id number] 03/04/2024 [id number] / [id number] / [id number] Port Implant W/8f Poly Cath - [id number] Implanted:Qty : 1 on 09/13/2023 by Gary Rodriguez DO at OR [facility] Right: Chest CR BARD : PERIPHERAL VASCULAR [id number] 04/24/2025 [id number] / / [id number] documented as of this encounter Advance Directives Documents on File Type Date Recorded Patient German Instructor Expl anation Advance Directives and Living Will [...] t (per Health Care Power of Building Cleaner document) [email or web address] Temo Bela Sibling First Alternate Health Care Agent (per Health Care Power of Building Cleaner document) [email or web address] Care Teams Reliability Engineer Relationship Specialty Start Date End Date Sergio Barriga MD [address] [place] [address] PCP - General Family Medicine 08/07/19 documented as of this encounter
--- OUTSIDE RECORDS SUMMARY | 2024-04-19 00:12 | External Medical Summary ---
Author Name Unknown Address Unknown Organization K09:[facility] - [address] [place] [address] Laboratory Report Ordering Provider Test Date Status JOSE ROY 11/04/2023 09:31:40 Final Observation Date Value Abnormality Reference (Units ) Status BUN 11/04/2023 09:31:40 13 6-20 (mg/dL) Final Creatinine 11/04/2023 09:31:40 1.2 0.6-1.2 (mg/dL) Final Glomerular filtration rate/1.73 sq M.predicted [Volume Rate/Area] in Serum, Plasma or Blood by Creatinine-based formula (CKD-EPI) 11/04/2023 09:31:40 66 >=60 (mL/min) Final eGFR is calculated based on the CKD-EPI 2020 equation SODIUM 11/04/2023 09:31:40 131 Below low normal 135 -146 (mmol/L) Final Potassium 11/04/2023 09:31:40 3.7 3.5-5.1 (m mol/L) Final Cl 11/04/2023 09:31:40 93 Below low normal 98- 107 (mmol/L) Final CO2 11/04/2023 09:31:40 27 22-32 (mmo l/L) Final Anion gap 11/04/2023 09:31:40 11 7-15 (mmol /L) Final Glucose 11/04/2023 09:31:40 154 Above high normal 70 -120 (mg/dL) Final Albumin 11/04/2023 09:31:40 3.4 Below low normal 3.8 -5.0 (g/dL) Final AST (Aspartate aminotransferase) 11/04/2023 09:31:40 17 10-50 (U/L) Fin al Alk Phos 11/04/2023 09:31:40 120 35-130 (U/ L) Final Bilirubin, Total 11/04/2023 09:31:40 0.8 <=1 .2 (mg/dL) Final Calcium 11/04/2023 09:31:40 9.0 8.4-10.2 ( mg/dL) Final Protein 11/04/2023 09:31:40 6.7 6.0-8.3 (g /dL) Final ALT (Alanine aminotransferase) 11/04/2023 09:31:40 18 10-50 (U/L) Silverio baker Performing Location [facility] [address] [place] [address]
--- OUTSIDE RECORDS SUMMARY | 2024-04-19 00:12 | External Medical Summary ---
Author Name Unknown Address Unknown Organization K09:[facility] [place] [address] Laboratory Report Ordering Provider Test Date Status JOSE ROY 11/04/2023 09:31:40 Final Observation Date Value Abnormality Reference (Units ) Status SYNC LEUKOCYTES IN BLOOD BY AUTOMATED COUNT 11/04/2023 09:31:40 7.37 4.00-10.80 (K/uL) Final Segs 11/04/2023 09:31:40 72.2 40.0-75.0 (%) Final Lymphs % 11/04/2023 09:31:40 12.2 Below low normal 18.0-42.0 (%) Final Monos 11/04/2023 09:31:40 13.3 Above high normal 1.0-11.0 (%) Final Eosinophils 11/04/2023 09:31:40 1.9 0.0-6.0 (%) Final Basos 11/04/2023 09:31:40 0.4 0.0-2.0 (%) Final Absolute Segs 11/04/2023 09:31:40 5.32 1.80-7.70 (K/uL) Final Lymphs, absolute 11/04/2023 09:31:40 0.90 Below low normal 1.00-4.80 (K/ul) Final Monos, Abs 11/04/2023 09:31:40 0.98 0.00-1.10 (K/uL) Final Eos, Abs 11/04/2023 09:31:40 0.14 0.00-0.70 (K/uL) Final Basos, Abs 11/04/2023 09:31:40 0.03 0.00-0.20 (K/uL) Final Performing Location [facility] [place] [address]
--- OUTSIDE RECORDS SUMMARY | 2024-04-19 00:12 | External Medical Summary ---
Author Name Unknown Address Unknown Organization K01:[facility] [place] - [address] [place] [address] Laboratory Report Ordering Provider Test Date Status KEZIA,EDWARD 11/04/2023 09:31:40 Final Observation Date Value Abnormality Reference (Units ) Status Cancer Ag 19-9 11/04/2023 09:31:40 310.0 Above high norm al <35.0 (U/mL) Final Performing Location [facility] - [address] [place] [address]
--- OUTSIDE RECORDS SUMMARY | 2024-04-19 00:12 | External Medical Summary | Summary of Care ---
Author Name Unknown Organization [facility] Address [address] [place] [address] Phone [phone] Care Team Providers Care Fare Collector Name Role Phone Sergio Barriga MD Primary Care Provider + Reason for Visit * Reason Comments Chemotherapy C3/D1 - FOLFIRINOX * Episode Based Medications (Routine) [...] IV Dakota Armando MD [address] [place] [address] Anc Hem/Onc Scene[facility]aine Kim[facility] DEPT CLOSED - 10/08/23 [address] [place] [place] [address] Referral ID Status Reason Start Date Expiration Date V isits Requested Visits Authorized [id number] Authorized 08/30/2023 11/24/[phone] Encounter Details Date Type Department Care Team (Latest Contact Info) Description 10/22/2023 8:30 AM EST Hem/Onc Treatment Hematology/Oncolog y Treatment, [place] [address] [place] [address] Rehana, Chair 4 Hem Onc Scenery [address] [place] [address] Encounter for antineoplastic chemotherapy*; Metastasis to liver (HCC); 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 0 Active Multi Vitamin Daily Oral Tablet Take by mouth. 0 Active Aspirin 81 MG Oral Tablet Delayed Release Take 1 Tablet by mouth in the morning. 0 Active Pancrelipase (Mfs-Tufr-Mhwj) 08187-69831 UNIT Oral Capsule Delayed Release Particles (Creon 61205) 2 cap with meals, 1 with larger [...] by mouth in the morning. 0 Active Lidocaine-Prilo clifton 2.5-2.5 % External Cream (Emla)Indicatio ns:Malignant neoplasm of body of pancreas (HCC),Metastasi s to liver (HCC) APPLY TO SKIN OVER MEDIPORT & COVER 1HR PRIOR TO ACCESSING. 30 g 1 08/30/2023 Active Additional Information Patient not taking.Reported on 09/27/2023 Ondansetron HCl 8 MG Oral Tablet (Zofran)Indicat ions:Malignant neoplasm of body of pancreas (HCC),Metastasi s to liver (HCC) Take 1 Tablet by mouth every 8 hours as needed for Nausea. 30 Tablet 3 08/30/2023 Active Additional Information Patient not taking.Reported on 09/27/2023 Prochlorperazin e Maleate 10 MG Oral Tablet [...] on 09/27/2023 Loratadine 10 MG Oral Tablet (Claritin)Indic ations:Malignan [...] BEDTIME NEEDED FOR SLEEP 30 Tablet 0 09/23/2023 3 Discontinued documented as of this encounter (statuses as of 10/23/2023) Active Problems Problem Noted Date Diagnosed Date Malignant neoplasm of body of pancreas 3 Metastasis to liver 08/30/2023 Encounter for antineoplastic chemotherapy 2022 History of carcinoma of pancreas 07/18/2023 Post-viral cough syndrome 07/09/2023 Upper airway cough syndrome 07/09/2023 History of 2019 novel coronavirus disease (COVID -19) 10/16/2022 Coronary artery disease invo lving deering coronary artery of deering heart without angina pectoris 08/20/2022 Overview: Severe [...] 04/10 colon-Dr Eller [facility] 2 polyps 1 tubular adenoma. Kevin 5y 2013 sleep study [facility] WNL [address] Elena [facility] Essential hypertension with goal blood pressure less [...] as of this encounter (statuses as of 10/23/2023) Resolved Problems Problem Noted Date Diagnosed Date [...] WNL, antiphos lipids WNL Factor V+heteroqygous. FM KG-OPKZ-TVELP DIS NEC documented as of this encounter (statuses as of 10/23/2023) Immunizations Name Administration Dates Next Due COVID-19 mRNA, LNP-s, No Pre serve, 2-Dose Series (When You Wish) 01/13/2022,07/21/2021,02/01/2021,12/26 COVID-19, MRNA-LNP, 23-24, P F, 30 MCG/0.3 mL, 12 YRS AND ABOVE, [facility] 09/12/2023 Covid-19, Mrna, Lnp-s, Pf, B ivalent, 30 Mcg, IM, 12 yrs and above (When You Wish) 08/16/2022 HEP A - Hepatitis A (Adult [...] Sign Reading Time Taken Comments Blood Pressure 122/73 10/22/2023 8:40 AM EST Pulse 82 10/22/2023 8:40 AM EST Temperature 35.8 C (96.5 F) 10/22/2023 8:40 AM ES T Respiratory Rate 16 10/22/2023 8:40 AM EST Oxygen Saturation 97% 10/22/2023 8:40 AM EST Inhaled Oxygen Concentration - - Weight - - Height - - Body Mass Index - - documented in this encounter Functional Status Functional [...] Nursing Notes * Krysten Valencia, RN - 10/22/2023 3:59 PM EST Chair 11. Port accessed without difficulty. Patient is here for FOLFIRINOX treatment, feeling well upon assessment. Patient delayed his tx by 1 week d/t Thanksgiving and says he felt very well during that past week. Chemo agents Oxaliplatin, Irinotecan, Leucovorin, 5FU Appetite good overall after the second week Nausea/Vomiting no complaints overall Diarrhea no Constipation no Mucositis not since his first tx Fatigue yes, typically fatigued, most common complaint for patient but he Is still well and able todo what he needs to do Bleeding no Infection no Rash no Numbness tingling not at this time, cold sensitivity typically resolves for patient after about 3-4days Pain no Radiation no ABN Labs WNL for tx Alt in Tx: N/A Return in 2 [...] harm today Functional status at today's visit: Restricted in [...] issues or problems. 5FU pump connected and medication is infusing. Patient left facility in stable condition and denied any further needs. documented in this encounter Plan of Treatment Upcoming Encounters Date Type Department Care Team (Late st Contact Info) Description 10/24/2023 11:45 AM EST Immunization/Injecti on Hematology/Oncology Treatment, [place] [address] [facility], [place] [address] Nurse, Med 4 200 [facility] [place] [address] 10/25/2023 11:45 AM EST Immunization/Injecti on Hematology/Oncology [facility], [place] [facility] [address] Nurse, Med 4 [address] [place] [address] 11/04/2023 9:30 AM EST Laboratory Laboratory [facility] [address] [place] [id number] Rehana, Lab [address] [place] [address] 11/05/2023 8:30 AM EST Office Visit Hematology/Oncology [facility] [address] [place] [address] Amber [facility]izar CRNP [facility] [address] 11/05/2023 9:00 AM EST Hem/Onc Treatment Hematology[facility] [place] [facility] [address] Rehana, Chair 7 Hem Onc [address] [place] [address] 12/02/2023 2:00 PM EST Office Visit Pulmonary Medicine, [facility] 132 [facility] [place] [address] Chris Kaplan MD [address] [place] [address] 12/17/2023 8:45 AM EST Office Visit Hematology/Oncology [facility] [address] [place] [address] Dakota Armando MD [address] [place] [address] 07/20/2024 10:15 AM EDT Office Visit Dermatology [facility] [address] [place] [address] Cal Jernigan MD [address] [place] [address] 07/21/2024 1:45 PM EDT Office Visit Hematology/Oncology [facility] [address] [place], [place] [address] Dakota Armando MD [address] [place], [place] [address] 07/24/2024 11:40 AM EDT Office Visit Family Practice [facility] [address] [place] [address] Sergio Barriga MD [address] [place] [address] Scheduled Procedures Name Priority Associated Diagnoses Date/Ti [...] this encounter Medical Devices Implanted Type Area Cemetery Workers Supervisor Device Identifier Shelf Expiration Date Model / Serial / Lot Stent Viabil Biliary [id number] - [id number] Implanted:Qty : 1 on 07/17/2021 by Guillermo Jones DO [place] [facility] [place] [employer] REYNALDO [id number] 03/04/2024 [id number] / [id number] / [id number] Port Implant W/8f Poly Cath - [id number] Implanted:Qty : 1 on 09/13/2023 by Gary Rodriguez DO at OR [facility] Right: Chest CR BARD : PERIPHERAL VASCULAR [id number] 04/24/2025 [id number] / / [id number] documented as of this encounter Visit Diagnoses [...] mg 0.4 mg, IV Push, ONCE, On Sat10/22/23 at 0915, For 1 dose, Give before CPT-11 Given 10/22/2023 11:38 AM EST 0.4 mg D5W IV solution Intravenous, at 50 mL/hr, CONTINUOUS, Starting on Sat10/22/23 at 0915, Until Sat10/22/23 at 1914 Start Infusion 10/22/2023 8:54 AM EST 500 mL 50 mL/hr Fluorouracil (5-Fu) 4,300 mg for Home Infusion 4,300 mg (rounded from 4,296 mg = 2,400 mg/m2 1.79 m2 Treatment Plan BSA from Recorded weight), Intravenous, Administer over 46 Hours, Home Infusion Pharmacy to specify base solution and volume., ONCE, 1 dose, On Sat10/22/23 at 1230 Start Infusion 10/22/2023 1:32 PM EST 4,300 mg 3 mL/hr Fosaprepitant Dimeglumine (Emend) 150 mg, ondansetron (Zofran) 16 mg, dexamethasone sodium phosphate 12 mg in NSS 250 mL Infusion 150 mg, IV Piggyback, ONCE, 1 dose, On Sat10/22/23 at 0915, Administer over 30 Minutes, Give 30 minutes prior to chemotherapy. Infuse over 30 minutes. Start Infusion 10/22/2023 8:56 AM EST 150 mg 500 mL/hr irinotecan HCl (Camptosar) 260 mg in D5W 500 mL infusion 260 mg (rounded from 268.5 mg = 150 mg/m2 1.79 m2 Treatment Plan BSA from Recorded weight), IV Piggyback, ONCE, 1 dose, On Sat10/22/23 at 1100, Administer over 90 Minutes, PROTECT FROM LIGHT Start Infusion 10/22/2023 11:39 AM EST 260 mg 333.33 mL/hr leucovorin calcium 700 mg in D5W 250 mL INFUSION 700 mg (rounded from 716 mg = 400 mg/m2 1.79 m2 Treatment Plan BSA from Recorded weight), IV Piggyback, ONCE, 1 dose, On Sat10/22/23 at 1100, Administer over 90 Minutes, Run concurrently with irinotecan immediately prior to 5FU Start Infusion 10/22/2023 11:39 AM EST 700 mg 166.67 mL/hr Oxaliplatin (Eloxatin) 150 mg in D5W 500 mL infusion 150 mg (rounded from 152.15 mg = 85 mg/m2 1.79 m2 Treatment Plan BSA from Recorded weight), IV Piggyback, ONCE, 1 dose, On Sat10/22/23 at 0915, Administer over 120 Minutes, Flush with D5W only! Start Infusion 10/22/2023 9:32 AM EST 150 mg 250 mL/hr sodium chloride 0.9 % flush central line 10 mL 10 mL, IV Push, PRN Other, IV Flush, Starting on Sat10/22/23 at 0844, Until Sat10/22/23 at 2011, For 24 hours, Do not flush if lock, PICC, or central line not in place; IV infusing or unable to flush. Given 10/22/2023 1:31 PM EST 10 mL documented in this encounter Advance Directives Documents on File Type Date Recorded Patient Customer Complaint Clerk Expl anation Advance Directives and Living [...] Agen t (per Health Care Power of Core Drilling Supervisor document) [email or web address] [email or web address] First Alternate Health Care Agent (per Health Care Power of Core Drilling Supervisor document) [email or web address] Care Teams Fare Collector Relationship Specialty Start Date End Date Sergio Barriga MD [address] [place] [address] PCP - General Family Medicine 08/07/19 documented as of this encounter
--- OUTSIDE RECORDS SUMMARY | 2024-04-19 00:12 | External Medical Summary ---
Author Name Unknown Address Unknown Organization K09:[facility] [place] [address] Laboratory Report Ordering Provider Test Date Status JOSE ROY 11/04/2023 09:31:40 Final Observation Date Value Abnormality Reference (Units ) Status WBC, Total 11/04/2023 09:31:40 7.37 4.00-10.8 0 (K/uL) Final RBC 11/04/2023 09:31:40 4.31 4.50-5.25 (M/uL) Final Hemoglobin 11/04/2023 09:31:40 11.3 Below low normal 14 .0-16.8 (g/dL) Final HCT 11/04/2023 09:31:40 35.8 Below low normal 40. 0-48.4 (%) Final MCV 11/04/2023 09:31:40 83.1 82.0-99.5 (fL) Final MCH 11/04/2023 09:31:40 26.2 27.0-34.0 (pg) Final MCHC 11/04/2023 09:31:40 31.6 32.0-36.0 (g/dL) Final RDW 11/04/2023 09:31:40 16.7 11.5-15.5 (%) Final Platelets 11/04/2023 09:31:40 193 140-400 (K /uL) Final MPV 11/04/2023 09:31:40 9.9 6.6-11.1 ( fL) Final Performing Location [facility] [place] [address]
--- OUTSIDE RECORDS SUMMARY | 2024-04-19 00:12 | External Medical Summary | Summary of Care ---
Author Name Unknown Organization [facility] Address [address] [place] [address] Phone [phone] Care Team Providers Care Vocational Teacher Name Role Phone Sergio Barriga MD Primary Care Provider + Reason for Visit * Reason Onset Date Comments Information 11/04/2023 Encounter Details Date Type Department Care Team (Late st Contact Info) Description 11/04/2023 Telephone Hematology/Oncology Treatment, [place] [address] [place] [address] Dakota Armando MD 200 [place] [address] Information Allergies Active Allergy Reactions Criticality Noted [...] mouth in the morning. 0 Active Pancrelipase (Ckp-Cvwh-Kuxh) 83409-75241 UNIT Oral Capsule Delayed Release Particles (Creon 53470) 2 cap with meals, 1 with larger [...] lipids WNL Factor V+heteroqygous. 04/10 colon-Dr Eller [facility] 2 polyps 1 tubular adenoma. Kevin 5y 2013 sleep study [facility] WNL [address] Elena [facility] Essential hypertension with goal [...] WNL, antiphos lipids WNL Factor V+heteroqygous. FM LY-MEAF-WDVOM DIS NEC documented as of this encounter (statuses as of 11/04/2023) Immunizations Name Administration Dates Next Due COVID-19 mRNA, LNP-s, No Pre serve, 2-Dose Series ([email or web address]) 01/13/2022,07/21/2021,02/01/2021,12/26 COVID-19, MRNA-LNP, 23-24, P F, 30 MCG/0.3 mL, 12 YRS AND ABOVE, [facility] 09/12/2023 Covid-19, Mrna, Lnp-s, [...] encounter Miscellaneous Notes * Telephone Encounter - Tracy June OSA [...] lab work the sameday as treatment over [place]. After that, will need to be day prior as it has been in the past. Radiology: can you please push images from PET 08/27/23 to [place] so that they will have these for [...] 8:30 AM EST Office Visit Hematology/Oncolog y [facility] [place] 200 [facility] [place] [address] Amber Huizar CRNP 400 [facility] [place] [address] 11/05/2023 9:00 AM EST Hem/Onc Treatment Hematology/Oncolog y Treatment, [address] [address] Rehana, Chair [address] [place] [address] Encounter for antineoplastic chemotherapy*; Metastasis to liver (HCC); Malignant neoplasm of body of pancreas (HCC) 11/19/2023 7:40 AM EST Laboratory Laboratory [facility] Rehana [place] 200 [facility] [place] [id number] Rehana, Lab [address] [place] [address] 11/19/2023 8:45 AM EST Hem/Onc Treatment Hematology/Oncolog y Treatment, [address] [address] Rehana, Chair 2 Hem Onc [facility] 200 [facility] [place] [place] [address] 12/02/2023 2:00 PM EST Office Visit Pulmonary Medicine, [facility] 132 [facility] [place] [phone] Chris Kaplan MD [address] [place] [address] 12/17/2023 8:45 AM EST Office Visit Hematology/Oncolog y [facility] [address] [place], [place] [address] Dakota Armando MD 200 [facility] [place], [place] [address] 07/20/2024 10:15 AM EDT Office Visit Dermatology [facility] [address] [place], [place] [address] Cal Jernigan MD 200 [facility] [place], [place] [address] 07/21/2024 1:45 PM EDT Office Visit Hematology/Oncolog y [facility] [address] [place] [address] Dakota Armando MD 200 [facility] [place], [place] [address] 07/24/2024 11:40 AM EDT Office Visit Family Practice [facility] [address] [facility] [place] [address] Sergio Barriga MD 132 [facility] [place] [address] Scheduled Procedures Name Priority Associated Diagnoses Date/Ti [...] encounter Medical Devices Implanted Type Area Director Smb Sales Device Identifier Shelf Expiration Date Model / Serial / Lot Stent Viabil Biliary [id number] - [id number] Implanted:Qty : 1 on 07/17/2021 by Guillermo Jones DO [place] [facility] [place] [employer] REYNALDO [id number] 03/04/2024 [id number] / [id number] / [id number] Port Implant W/8f Poly Cath - [id number] Implanted:Qty : 1 on 09/13/2023 by Gary Rodriguez DO at OR [facility] Right: Chest CR BARD : PERIPHERAL VASCULAR [id number] 04/24/2025 [id number] / / [id number] documented as of this encounter Advance Directives Documents on File Type Date Recorded Patient Concrete Spreader Expl anation Advance Directives and Living Will [...] Agen t (per Health Care Power of Casting Machine Operator document) [email or web address] Temo Cramer Sibling First Alternate Health Care Agent (per Health Care Power of Casting Machine Operator document) Care Teams Vocational Teacher Relationship Specialty Start Date End Date Sergio Barriga MD [address] [place] [address] PCP - General Family Medicine 08/07/19 documented as of this encounter
--- OUTSIDE RECORDS SUMMARY | 2024-04-19 00:12 | External Medical Summary | Summary of Care ---
Author Name Unknown Organization [facility] Address [address] [place] [address] Phone [phone] Care Team Providers Care Accounts Payable Professional Name Role Phone Sergio Barriga MD Primary Care Provider + Reason for Visit * Reason Comments Outpatient Testing Encounter Details Date Type Department Care Team (Late st Contact Info) Description 11/04/2023 9:30 AM EST Laboratory Laboratory [facility] [address] [place] [phone] [place], Lab Scenery [address] [place] [address] Malignant neoplasm of body of pancreas (HCC); [...] mouth in the morning. 0 Active Pancrelipase (Sge-Woaj-Czad) 58463-39[address] UNIT Oral Capsule Delayed Release Particles (Creon 38342) 2 cap with meals, 1 with larger [...] WNL, antiphos lipids WNL Factor V+heteroqygous. FM EE-YIAB-GWQXQ DIS NEC documented as of this encounter (statuses as of 11/04/2023) Immunizations Name Administration Dates Next Due COVID-19 mRNA, LNP-s, No Pre serve, 2-Dose Series (tu.nr) 01/13/2022,07/21/2021,02/01/2021,01/04 COVID-19, MRNA-LNP, 23-24, P F, 30 MCG/0.3 mL, 12 YRS AND ABOVE, [facility] 09/12/2023 Covid-19, Mrna, Lnp-s, [...] 11/05/2023 8:30 AM EST Office Visit Hematology/Oncology [address] [place] [address] Amber Huizar CRNP 400 [facility] [place] [address] 11/05/2023 9:00 AM EST Hem/Onc Treatment Hematology/Oncology Treatment, [place] 200 [facility] [address] Rehana, Chair 7 Hem Onc [address] [place] [address] 12/02/2023 2:00 PM EST Office Visit Pulmonary Medicine, [facility] 132 [facility] [place] [address] Chris Kaplan MD [address] [place] [address] 12/17/2023 8:45 AM EST Office Visit Hematology/Oncology [facility] 200 [facility] [place] [address] Dakota Armando MD 200 [place] [address] 07/20/2024 10:15 AM EDT Office Visit Dermatology [facility] 200 [facility] [place], [place] [address] Cal Jernigan MD 200 [facility] [place] [address] 07/21/2024 1:45 PM EDT Office Visit Hematology/Oncology [facility] 200 [facility] [place], [place] [address] Dakota Armando MD 200 [facility] [place] [address] 07/24/2024 11:40 AM EDT Office Visit Family [facility] [address] [place] [address] Sergio Barriga MD [address] [place] [address] Pending Results Name Type Priority Associated Diagnoses Date /Time COMPREHENSIVE METABOLIC PANEL Lab STAT 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 to liver (HCC) 11/04/2023 9:31 AM EST Scheduled Procedures Name Priority Associated [...] this encounter Medical Devices Implanted Type Area Pick Up Attendant Device Identifier Shelf Expiration Date Model / Serial / Lot Stent Viabil Biliary [id number] - [id number] Implanted:Qty : 1 on 07/17/2021 by Guillermo Jones DO [place] [facility] [place] [employer] REYNALDO [id number] 03/04/2024 [id number] / [id number] / [id number] Port Implant W/8f Poly Cath - [id number] Implanted:Qty : 1 on 09/13/2023 by Gary Rodriguez DO at OR [facility] Right: Chest CR BARD : PERIPHERAL VASCULAR [id number] 04/24/2025 [id number] / / [id number] documented as of this encounter Procedures Procedure Name Priority Date/Time Associated Diagnosis Comments DIFFERENTIAL, AUTOMATED STAT 11/04/2023 9:31 AM EST 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 to liver (HCC) CBC STAT 11/04/2023 9:31 AM EST 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 to liver (HCC) CBC STAT 11/04/2023 9:31 AM EST 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 to liver (HCC) documented in this encounter Results * (ABNORMAL) DIFFERENTIAL, AUTOMATED (11/04/2023 9:31 AM EST) WBC 7.37 4.00 - 10.80 K/uL 11/04/2023 9:43 AM EST [facility] 56-02 Neutrophils % 72.2 40.0 - 75.0 % 11/04/2023 9:43 AM EST [facility] 56-02 Lymphocytes % 12.2(L) 18.0 - 42.0 % 11/04/2023 9:43 AM EST [facility] 56-02 Monocytes % 13.3(H) 1.0 - 11.0 % 11/04/2023 9:43 AM EST [facility] 56-02 Eosinophils % 1.9 0.0 - 6.0 % 11/04/2023 9:43 AM EST [facility] 56-02 Basophils % 0.4 0.0 - 2.0 % 11/04/2023 9:43 AM EST [facility] 56-02 Absolute Neutrophils 5.32 1.80 - 7.70 K/uL 11/04/2023 9:43 AM EST [facility] 56-02 Absolute Lymphocytes 0.90(L) 1.00 - 4.80 K/ul 11/04/2023 9:43 AM EST [facility] 56-02 Absolute Monocytes 0.98 0.00 - 1.10 K/uL 11/04/2023 9:43 AM EST [facility] 56-02 Absolute Eosinophils 0.14 0.00 - 0.70 K/uL 11/04/2023 9:43 AM EST [facility] 56-02 Absolute Basophils 0.03 0.00 - 0.20 K/uL 11/04/2023 9:43 AM [facility] 56-02 Blood Venous blood specimen / Unknown Venipuncture / Unknown 11/04/2023 9:31 AM EST 11/04/2023 9:31 AM EST Dakota Armando MD LAB BLOOD ORDERABLES [facility] 56-[address] [place] [address] * (ABNORMAL) CBC (11/04/2023 9:31 AM EST) WBC 7.37 4.00 - 10.80 K/uL 11/04/2023 9:43 AM [facility] 56 RBC 4.31 4.50 - 5.25 M/uL 11/04/2023 9:43 AM [facility] 56 HGB 11.3(L) 14.0 - 16.8 g/dL 11/04/2023 9:43 AM [facility] 56 HCT 35.8(L) 40.0 - 48.4 % 11/04/2023 9:43 AM [facility] 56 MCV 83.1 82.0 - 99.5 fL 11/04/2023 9:[address] MCH 26.2 27.0 - 34.0 pg 11/04/2023 9:[address] MCHC 31.6 32.0 - 36.0 g/dL 11/04/2023 9:[address] RDW 16.7 11.5 - 15.5 % 11/04/2023 9:43 AM [facility] 56 PLT 193 140 - 400 K/uL 11/04/2023 9:43 AM [facility] 56 MPV 9.9 6.6 - 11.1 fL 11/04/2023 9:43 AM [facility] 56 Blood Venous blood specimen / Unknown Venipuncture / Unknown 11/04/2023 9:31 AM EST 11/04/2023 9:31 AM EST Dakota Armando MD LAB BLOOD ORDERABLES [facility] [address]- [address] [place] [address] documented in this encounter Visit Diagnoses Diagnosis Malignant neoplasm of body of pancreas (HCC) Malignant neoplasm of body of pancreas 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 documented in this encounter Advance Directives Documents on File Type Date Recorded Patient Tank Inspector Expl anation Advance Directives and Living [...] Agen t (per Health Care Power of Pulvi Mixer Operator document) [email or web address] Sibling First Alternate Health Care Agent (per Health Care Power of Pulvi Mixer Operator document) Care Teams Accounts Payable Professional Relationship Specialty Start Date End Date Sergio Barriga MD [address] [place] [address] PCP - General Family Medicine 08/07/19 documented as of this encounter
--- OUTSIDE RECORDS SUMMARY | 2024-04-19 00:12 | External Medical Summary | Summary of Care ---
Author Name Unknown Organization [facility] Address [address] [place] [address] Phone [phone] Care Team Providers Care Senior Electronics Engineer Name Role Phone Sergio Barriga MD Primary Care Provider + Reason for Visit * Reason Onset Date Comments Test Results 07/25/2023 Unexpected or In determinate Result Encounter Details Date Type Department Care Team (Late st Contact Info) Description 07/25/2023 Telephone Radiology [address] [facility] [place] [address] Amber Huizar CRNP 400 [facility] [place] [address] Test Results ( Unexpected or Indeterminate... Allergies Active Allergy Reactions Criticality Noted Date [...] mouth in the morning. 0 Active Pancrelipase (Vrk-Tnun-Dilb) 19085-56966 UNIT Oral Capsule Delayed Release Particles (Creon 65355) 2 cap with meals, 1 with larger [...] by mouth in the morning. 0 Active Atorvastatin Calcium 40 MG Oral Tablet (Lipitor) Take 1 Tablet (40 mg) by mouth in the morning. 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 04/10 colon-Dr Case [facility] 2 polyps 1 tubular adenoma. Kevin 6y 2013 sleep study [facility] WNL [address] Elena [facility] Essential hypertension with goal blood [...] WNL, antiphos lipids WNL Factor V+heteroqygous. FM KL-OKOS-XRABR DIS NEC documented as of this encounter (statuses as of 10/24/2023) Immunizations Name Administration Dates Next Due COVID-19 mRNA, LNP-s, No Pre serve, 2-Dose Series (SiTune) 01/13/2022,07/21/2021,02/01/2021,01/04 Covid-19, Mrna, Lnp-s, Pf, B ivalent, 30 [...] Seasonal Influenza, Quadriva lent Hd (Fluzone Hd) 08/13/2022,08/30/2021 TD, Preservative Free 07/21/1999 TDAP (age 12 [...] encounter Miscellaneous Notes * Telephone Encounter - Abbey Sandoval, CHATO - 07/25/2023 3:16 PM EDT Hello- The radiologist discovered an unexpected or indeterminate finding on Rafael Cramer ([id number]) and asks that you review the following report. Study Type: CT ABD/PELVIS W IV AND W ORAL CONTRAST Date of Study: 07/24/2023 IMPRESSION Chest: 1. Ill-defined ground-glass opacities scattered [...] 4. Other incidental findings as detailed above. Please respond to this encounter to acknowledge receipt of this message and take responsibility to ensure this report is reviewed. Thank you, CHATO Ang Client Service [facility] documented in this encounter Plan of Treatment Upcoming Encounters Date Type Department Care Team (Late st Contact Info) Description 10/25/2023 11:45 AM EST Immunization/Injecti on Hematology/Oncology Treatment, [address] [address] Nurse, Med [address] [place] [address] [place] [address] 11/04/2023 9:30 AM EST Laboratory Laboratory [facility] [address] [place] [phone] [place], Lab [address] COUNT INCLUDES THE [facility] [place] [address] 11/05/2023 8:30 AM EST Office Visit Hematology/Oncology [address] [place] [address] Amber Huizar CRNP [address] [place] [address] [place] [address] 11/05/2023 9:00 AM EST Hem/Onc Treatment Hematology/Oncology Treatment, [address] [address] Rehana, Chair 7 Hem Onc [address] [place] [address] 12/02/2023 2:00 PM EST Office Visit Pulmonary Medicine, [facility] [address] [facility] [place] [address] Chris Kaplan MD [address] [place] [address] 12/17/2023 8:45 AM EST Office Visit Hematology/Oncology [facility] [address] [place] [address] Dakota Armando MD 200 [facility] [place] [address] 07/20/2024 10:15 AM EDT Office Visit Dermatology [facility] [address] [place] [address] aCl Jernigan MD 200 [facility] [place] [address] 07/21/2024 1:45 PM EDT Office Visit Hematology/Oncology [facility] [address] [place] [address] Dakota Armando MD 200 [facility] [place] [address] 07/24/2024 11:40 AM EDT Office Visit Family Practice [facility] [address] [facility] [place] [address] Sergio Barriga MD 132 [facility] [place] [address] Scheduled Procedures Name Priority Associated Diagnoses Date/Ti [...] this encounter Medical Devices Implanted Type Area Rehabilitation Construction Specialist Device Identifier Shelf Expiration Date Model / Serial / Lot Stent Viabil Biliary [id number] - [id number] Implanted:Qty : 1 on 07/17/2021 by Guillermo Jones DO at ENDOSCOPY [facility] [employer] REYNALDO [id number] 03/04/2024 [id number] / [id number] / [id number] Port Implant W/8f Poly Cath - [id number] Implanted:Qty : 1 on 09/13/2023 by Gary Rodriguez DO at OR [facility] Right: Chest CR BARD : PERIPHERAL VASCULAR [id number] 04/24/2025 [id number] / / [id number] documented as of this encounter Advance Directives [...] Agen t (per Health Care Power of Air Traffic Control Operator document) [email or web address] [email or web address] First Alternate Health Care Agent (per Health Care Power of Air Traffic Control Operator document) [email or web address] Care Teams Senior Electronics Engineer Relationship Specialty Start Date End Date Sergio Barriga MD 132 [place] [address] PCP - General Family Medicine 08/07/19 documented as of this encounter
--- OUTSIDE RECORDS SUMMARY | 2024-04-19 00:12 | External Medical Summary | Summary of Care ---
Author Name Unknown Organization [facility] Address [address] [place] [address] Phone [phone] Care Team Providers Care Label Rewinder Name Role Phone Sergio Barriga MD Primary Care Provider + Reason for Visit * Reason Onset Date Comments Test Results Imaging Study 11/05/2023 Encounter Details Date Type Department Care Team (Late st Contact Info) Description 11/05/2023 Telephone Hematology/Oncology Treatment, [place] [address] [place] [address] Dakota Armando MD 200 [place] [address] Test Results Imaging Study Allergies Active Allergy Reactions Criticality Noted Date [...] mouth in the morning. 0 Active Pancrelipase (Fgk-Esfj-Rgig) 14905-75763 UNIT Oral Capsule Delayed Release Particles (Creon 62712) 2 cap with meals, 1 with larger [...] -19) 10/16/2022 Coronary artery disease invo lving [place] coronary artery of [place] heart without angina pectoris 08/20/2022 Overview: Severe [...] WNL, antiphos lipids WNL Factor V+heteroqygous. FM YM-SPPE-GKMGK DIS NEC documented as of this encounter (statuses as of 11/05/2023) Immunizations Name Administration Dates Next Due COVID-19 mRNA, LNP-s, No Pre serve, 2-Dose Series (Tadpoles) 01/13/2022,07/21/2021,02/01/2021,01/04 COVID-19, MRNA-LNP, 23-24, P F, 30 MCG/0.3 mL, 12 YRS AND ABOVE, IM (RoyalCactus-Comirnat) 09/12/2023 Covid-19, Mrna, Lnp-s, Pf, B ivalent, [...] Telephone Encounter - Courtney Plascencia RN - 11/05/2023 12:36 PM EST Received call from [facility] with radiology- wanted to make sure we are aware of CXR report. IMPRESSION New indistinct airspace opacity at the right lung base with a small amount of loculated fluid in the major fissure, concerning for pneumonia. Follow-up to resolution is recommended to exclude metastatic disease. Dr Armando/ Amber:FYI documented in this encounter Plan of Treatment Upcoming Encounters Date Type Department Care Team (Late st Contact Info) Description 11/05/2023 2:05 PM EST Imaging Radiology [facility] [address] [place] [address] Arrived 11/19/2023 7:40 AM EST Laboratory Laboratory [facility] [place] [address] [phone] [place], Lab [facility] [address] [address] [address] 11/19/2023 8:45 AM EST Hem/Onc Treatment Hematology/Oncology Treatment, [place] [address] [place] [address] Rehana, Chair 2 Hem Onc [place] [address] [address] [address] 12/02/2023 2:00 PM EST Office Visit Pulmonary Medicine, [facility] 132 [facility] [place] [address] Chris Kaplan MD [address] [place] [address] 12/17/2023 8:45 AM EST Office Visit Hematology/Oncology [facility] [address] [place] [address] Dakota Armando MD 200 [facility] [place] [address] 07/20/2024 10:15 AM EDT Office Visit Dermatology [facility] [address] [place] [address] Cal Jernigan MD 200 [facility] [place] [address] 07/21/2024 1:45 PM EDT Office Visit Hematology/Oncology [facility] [address] [place] [address] Dakota Armando MD 200 [facility] [place], [place] [address] 07/24/2024 11:40 AM EDT Office Visit Family Practice [facility] [address] [place] [address] Sergio Barriga MD 132 [facility] [place] [address] Scheduled Procedures Name Priority Associated Diagnoses Date/Ti [...] this encounter Medical Devices Implanted Type Area Orthopedic Shoes Salesperson Device Identifier Shelf Expiration Date Model / Serial / Lot Stent Viabil Biliary [id number] - [id number] Implanted:Qty : 1 on 07/17/2021 by [facility] [id number] 03/04/2024 [id number] / [id number] / [id number] Port Implant W/8f Poly Cath - [id number] Implanted:Qty : 1 on 09/13/2023 by Gary Rodriguez DO at OR [facility] Right: Chest CR BARD : PERIPHERAL VASCULAR [id number] 04/24/2025 [id number] / / [id number] documented as of this encounter Advance Directives Documents on File Type Date Recorded Patient Molder Vacuum Expl anation Advance Directives and Living Will [...] Agen t (per Health Care Power of Forensic Pathologist document) [email or web address] [email or web address] Sibling First Alternate Health Care Agent (per Health Care Power of Forensic Pathologist document) [email or web address] Care Teams Label Rewinder Relationship Specialty Start Date End Date Sergio Barriga MD [address] [place] [address] PCP - General Family Medicine 08/07/19 documented as of this encounter
--- OUTSIDE RECORDS SUMMARY | 2024-04-19 00:12 | External Medical Summary | Summary of Care ---
Author Name Unknown Organization [facility] Address [address] [place] [address] Phone [phone] Care Team Providers Care Knobber Name Role Phone Sergio Barriga MD Primary Care Provider + Reason for Visit * Reason Onset Date Comments Information 11/04/2023 Encounter Details Date Type Department Care Team (Late st Contact Info) Description 11/04/2023 Telephone Hematology/Oncology Treatment, [place] [address] [place] [address] Dakota Armando MD 200 [facility] [place] [address] Information Allergies Active Allergy Reactions Criticality Noted [...] mouth in the morning. 0 Active Pancrelipase (Pgn-Wvez-Mbkp) 83858-63209 UNIT Oral Capsule Delayed Release Particles (Creon 17915) 2 cap with meals, 1 with larger [...] -19) 10/16/2022 Coronary artery disease invo lving [place] coronary artery of [place] heart without angina pectoris 08/20/2022 Overview: Severe [...] WNL, antiphos lipids WNL Factor V+heteroqygous. FM PA-GFZV-FWXWO DIS NEC documented as of this encounter (statuses as of 11/04/2023) Immunizations Name Administration Dates Next Due COVID-19 mRNA, LNP-s, No Pre serve, 2-Dose Series (Manpacks) 01/13/2022,07/21/2021,02/01/2021,12/26 COVID-19, MRNA-LNP, 23-24, P F, 30 MCG/0.3 mL, 12 YRS AND ABOVE, IM [facility]) 09/12/2023 Covid-19, Mrna, Lnp-s, [...] lab work the sameday as treatment over Pandora. After that, will need to be day prior as it has been in the past. Radiology: can you please push images from PET 08/27/23 to [facility] so that they will have these for [...] 8:30 AM EST Office Visit Hematology/Oncolog y [facility] [place] 200 [facility] [place] [address] Amber Huizar CRNP 400 [facility] [place] [address] 11/05/2023 9:00 AM EST Hem/Onc Treatment Hematology/Oncolog y Treatment, [address] [address] Rehana, Chair 7 Hem Onc [address] [place] [address] Encounter for antineoplastic chemotherapy*; Metastasis to liver (HCC); Malignant neoplasm of body of pancreas (HCC) 11/19/2023 7:40 AM EST Laboratory Laboratory [facility] Rehana [place] 200 [facility] [place] [phone] [place], Lab [address] [place] [address] 11/19/2023 8:45 AM EST Hem/Onc Treatment Hematology/Oncolog y Treatment, [address] [address] Rehana, Chair 2 Hem Onc [facility] 200 [facility] [address] [place] [address] 12/02/2023 2:00 PM EST Office Visit Pulmonary Medicine, [facility] 132 [facility] [place] [phone] Chris Kaplan MD [address] [place] [address] 12/17/2023 8:45 AM EST Office Visit Hematology/Oncolog y [facility] [address] [place], [place] [address] Dakota Armando MD 200 [facility] [place], [place] [address] 07/20/2024 10:15 AM EDT Office Visit Dermatology [facility] [address] [place], [place] [address] Cal Jernigan MD 200 [facility] [place], [place] [address] 07/21/2024 1:45 PM EDT Office Visit Hematology/Oncolog y [facility] [address] [place] [address] Dakota Armando MD 200 [facility] [place], [place] [address] 07/24/2024 11:40 AM EDT Office Visit Family Practice [facility] 132 [facility] [place] [address] Sergio Barriga MD 132 [facility] [place] [address] Scheduled Procedures Name Priority Associated Diagnoses Date/Ti [...] this encounter Medical Devices Implanted Type Area Crown Pouncer Device Identifier Shelf Expiration Date Model / Serial / Lot Stent Viabil Biliary [id number] - [id number] Implanted:Qty : 1 on 07/17/2021 by Guillermo Jones DO at ENDOSCOPY [facility] [employer] REYNALDO [id number] 03/04/2024 [id number] / [id number] / [id number] Port Implant W/8f Poly Cath - [id number] Implanted:Qty : 1 on 09/13/2023 by Gary Rodriguez DO at OR [facility] Right: Chest CR BARD : PERIPHERAL VASCULAR [id number] 04/24/2025 [id number] / / [id number] documented as of this encounter Advance Directives Documents on File Type Date Recorded Patient Material Damage Adjuster Expl anation Advance Directives and Living Will [...] Agen t (per Health Care Power of Tenter Frame Back Tender document) @[email or web address] Temo Cramer Sibling First Alternate Health Care Agent (per Health Care Power of Tenter Frame Back Tender document) Care Teams Knobber Relationship Specialty Start Date End Date Sergio Barriga MD [address] [place] [address] PCP - General Family Medicine 08/07/19 documented as of this encounter
--- OUTSIDE RECORDS SUMMARY | 2024-04-19 00:13 | External Medical Summary | Summary of Care ---
Author Name Unknown Organization [facility] Address [address] [place] [address] Phone [phone] Care Team Providers Care Coding Validator Name Role Phone Sergio Walter MD Primary Care Provider + Reason for Visit * Reason Comments eRx-Medication Refill Encounter Details Date Type Department Care Team (Late st Contact Info) Description 10/21/2023 Refill Family Practice [facility] [address] [place] [address] Sergio Walter MD [address] [facility] [place] [address] Chronic insomnia Allergies Active Allergy Reactions Criticality Noted Date Comments Lisinopril Cough Low 08/07/2019 documented as of this encounter (statuses as of 10/21/2023) Medications Medication Sig Dispensed Refills Start Date End Date Status Boost 100 Calorie Smart Oral Liquid Take by mouth. 0 Active Multi Vitamin Daily Oral Tablet Take by mouth. 0 Active Aspirin 81 MG Oral Tablet Delayed Release Take 1 Tablet by mouth in the morning. 0 Active Pancrelipase (Zzr-Bqrn-Qeqi) 88320-25370 UNIT Oral Capsule Delayed Release Particles (Creon 79613) 2 cap with meals, 1 with larger [...] FOR SLEEP 30 Tablet 0 10/21/2023 Active ALPRAZolam 1 MG Oral Tablet (xaNAX)Indicati ons:Chronic insomnia TAKE ONE TABLET BY MOUTH AT BEDTIME NEEDED FOR SLEEP 30 Tablet 0 09/23/2023 3 Discontinued Hospital, Clinic, or Other Facility Administered Medication Ordered Dose Route Frequency Start Date End Date Status Fluorouracil (5-Fu) 4,300 mg in NSS 138 mL infusion 4300 mg IV CONTINUOUS 10/21/2023 10/23/2023 Active documented as of this encounter (statuses as of 10/21/2023) Active Problems Problem Noted Date Diagnosed Date Malignant neoplasm of body of pancreas 3 Metastasis to liver 08/30/2023 Encounter for antineoplastic chemotherapy 2022 History of carcinoma of pancreas 07/18/2023 Post-viral cough syndrome 07/09/2023 Upper airway cough syndrome 07/09/2023 History of 2019 novel coronavirus disease (COVID -19) 10/16/2022 Coronary artery disease invo lving [place] coronary artery of [place] heart without angina pectoris 08/20/2022 Overview: [...] as of this encounter (statuses as of 10/21/2023) Resolved Problems Problem Noted Date Diagnosed Date [...] WNL, antiphos lipids WNL Factor V+heteroqygous. FM BT-IADD-TQUJX DIS NEC documented as of this encounter (statuses as of 10/21/2023) Immunizations Name Administration Dates Next Due COVID-19 mRNA, LNP-s, No Pre serve, 2-Dose Series (Sputnik8) 01/13/2022,07/21/2021,02/01/2021,01/04 COVID-19, MRNA-LNP, 23-24, P F, 30 MCG/0.3 mL, 12 YRS AND ABOVE, IM ([facility]) 09/12/2023 Covid-19, Mrna, Lnp-s, Pf, B ivalent, 30 Mcg, IM, 12 yrs and above (Sputnik8) 08/16/2022 HEP A - Hepatitis A (Adult [...] Telephone Encounter - Sergio Walter MD - 10/21/2023 10:35 PM EST Signed Prescriptions: Disp Refills ALPRAZolam 1 MG Oral Tablet (xaNAX) 30 Tab*0 Sig: TAKE ONE TABLET BY MOUTH AT BEDTIME NEEDED FOR SLEEP Authorizing Provider: SERGIO WALTER * Telephone Encounter - Juanita Aguilar [facility] - 10/21/2023 3:46 PM ESTPending Prescriptions: Disp Refills ALPRAZolam 1 MG Oral Tablet [Pharmacy Med *30 Tab*0 Sig: TAKE ONE TABLET BY MOUTH AT BEDTIME NEEDED FOR SLEEP * Telephone Encounter - Juanita Aguilar RP - 10/21/2023 3:46 PM EST I have reviewed the patients controlled substance dispensing history in the Prescription Drug Monitoring Program in compliance with the [facility] regulations before prescribing a controlled substance. PDMP checked on 10/21/2023. Pending Prescriptions: Disp Refills ALPRAZolam 1 MG Oral Tablet (xaNAX) [Phar*30 Tab*0 Sig: TAKE ONE TABLET BY MOUTH AT BEDTIME NEEDED FOR SLEEP Last Visit: 07/18/2023 (in office), 07/18/2022 (telemedicine) Next Visit: 07/24/2024 Date medication was last filled: 09/24/23 Date medication is due for refill: 10/23/23 Pharmacy: [id number] Is this request for a controlled substance? Yes and Urine Drug Screen Not completed Toxicology results: No results found for this or any previous visit. Please approve if appropriate. Thanks, Juanita Aguilar, PharmD Clinical Pharmacist [facility] ([facility] - Formerly Telepharmacy) [phone] 10/21/2023 3:46 PM documented in this encounter Plan of Treatment Upcoming Encounters Date Type Department Care Team (Latest Contact Info) Description 10/22/2023 8:30 AM EST Hem/Onc Treatment Hematology/[facility]colog [facility] [place] [facility] [address] Rehana, Chair 4 Hem Onc [address] [address] Encounter for antineoplastic chemotherapy*; Metastasis to liver (HCC); Malignant neoplasm of body of pancreas (HCC) 11/04/2023 9:30 AM EST Laboratory Laboratory [facility] [place] [address] [place] [id number] Rehana, Lab [address] [facility] [place] [address] 11/05/2023 8:30 AM EST Office Visit Hematology/Oncolog y [facility] [address] [place] [address] Amber Huizar CRNP 400 [facility] [place] [id number] 11/05/2023 9:00 AM EST Hem/Onc Treatment Hematology/Oncolog y Treatment, [place] [address] [place], [place] [address] Rehana, Chair 7 Hem Onc [facility] 200 [facility] [place] [address] 12/02/2023 2:00 PM EST Office Visit Pulmonary Medicine, [facility] 132 [place], [place] [phone] Chris Kaplan MD [facility] [place] [address] 12/17/2023 8:45 AM EST Office Visit Hematology/Oncolog y [facility] [address] [place], [place] [address] Dakota Armando MD [address] [place] [address] 07/20/2024 10:15 AM EDT Office Visit Dermatology [facility] [address] [place] [address] Cal Jernigan MD [address] [place] [address] 07/21/2024 1:45 PM EDT Office Visit Hematology[facility]colog y [facility] [address] [place] [address] Dakota Armando MD [address] [place] [address] 07/24/2024 11:40 AM EDT Office Visit Family Practice [facility] [address] [place] [address] Sergio Walter MD [address] [place] [address] Scheduled Procedures Name Priority Associated Diagnoses Date/Ti [...] this encounter Medical Devices Implanted Type Area Bioinformatics Associate Device Identifier Shelf Expiration Date Model / Serial / Lot Stent Viabil Biliary [id number] - [id number] Implanted:Qty : 1 on 07/17/2021 by Guillermo Jones DO at ENDOSCOPY [facility] A vida é feita de [place] [id number] 03/04/2024 [id number] / [id number] / [id number] Port Implant W/8f Poly Cath - [id number] Implanted:Qty : 1 on 09/13/2023 by Gary Rordiguez DO at OR [facility] Right: Chest CR BARD : PERIPHERAL VASCULAR [id number] 04/24/2025 [id number] / / [id number] documented as of this encounter Visit Diagnoses Diagnosis Chronic insomnia Insomnia, unspecified Encounter for antineoplastic chemotherapy- Primary 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 Malignant neoplasm of body of pancreas (HCC) Malignant neoplasm of body of pancreas documented in this encounter Advance Directives Documents on File Type Date Recorded Patient Inorganic Chemist Expl anation Advance Directives and Living Will [...] Agen t (per Health Care Power of Battery Starter document) [email or web address] Sibling First Alternate Health Care Agent (per Health Care Power of Battery Starter document) Care Teams Coding Validator Relationship Specialty Start Date End Date Sergio Walter MD [address] [place] [address] PCP - General Family Medicine 08/07/19 documented as of this encounter
--- OUTSIDE RECORDS SUMMARY | 2024-04-19 00:13 | External Medical Summary | Summary of Care ---
Author Name Unknown Organization [facility] Address [address] [place] [address] Phone [phone] Care Team Providers Care Superintendent Police Name Role Phone Sergio Barriga MD Primary Care Provider + Reason for Visit * Reason Comments Chemotherapy C3/D1 - FOLFIRINOX 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) Procedures TX LEUCOVORIN CALCIUM INJECTION TX FLUOROURACIL INJECTION TX IRINOTECAN INJECTION TX OXALIPLATIN TX FOSAPREPITANT INJECTION BEVACIZUMAB-BVZR, BIOSIMILAR, 10 MG (ZIRABEV), IV Dakota Armando MD [address] [place], [place] [address] Anc Hem/Onc [facility] DEPT CLOSED - 10/08/23 [address] [place] [place] [address] Referral ID Status Reason Start Date Expiration Date V isits Requested Visits Authorized [id number] Authorized 08/30/2023 11/24/2099 999 [id number] Encounter Details Date Type Department Care Team (Latest Contact Info) Description 10/22/2023 8:30 AM EST Hem/Onc Treatment Hematology/Oncolog y Treatment, [place] [address] [place] [address] [place], Chair 4 Hem Onc Scenery [address] [place] [address] Encounter for antineoplastic chemotherapy*; Metastasis to liver (HCC); Malignant neoplasm of body of pancreas (HCC) Allergies Active Allergy Reactions Criticality Noted Date Comments Lisinopril Cough Low 08/07/2019 documented as of this encounter (statuses as of 10/22/2023) Medications Medication Sig Dispensed Refills Start Date End Date Status Boost 100 Calorie Smart Oral Liquid Take by mouth. 0 Active Multi Vitamin Daily Oral Tablet Take by mouth. 0 Active Aspirin 81 MG Oral Tablet Delayed Release Take 1 Tablet by mouth in the morning. 0 Active Pancrelipase (Cce-Wfxa-Mchj) 43753-49[address] UNIT Oral Capsule Delayed Release Particles (Creon 83468) 2 cap with meals, 1 with larger [...] as of this encounter (statuses as of 10/22/2023) Active Problems Problem Noted Date Diagnosed Date Malignant neoplasm of body of pancreas 3 Metastasis to liver 08/30/2023 Encounter for antineoplastic chemotherapy 2022 History of carcinoma of pancreas 07/18/2023 Post-viral cough syndrome 07/09/2023 Upper airway cough syndrome 07/09/2023 History of 2019 novel coronavirus disease (COVID -19) 10/16/2022 Coronary artery disease invo lving [place] coronary artery of [place] heart without angina pectoris 08/20/2022 Overview: Severe [...] WNL Factor V+heteroqygous. 04/10 colon-Dr Eller [facility] 2 polyps 1 tubular adenoma. Kevin 5y 2013 sleep study [facility] WNL [address] Elena [facility] Essential hypertension with goal blood pressure [...] as of this encounter (statuses as of 10/22/2023) Resolved Problems Problem Noted Date Diagnosed Date [...] WNL, antiphos lipids WNL Factor V+heteroqygous. FM US-TDIY-CRJEM DIS NEC documented as of this encounter (statuses as of 10/22/2023) Immunizations Name Administration Dates Next Due COVID-19 mRNA, LNP-s, No Pre serve, 2-Dose Series ([employer]) 01/13/2022,07/21/2021,02/01/2021,01/04 COVID-19, MRNA-LNP, 23-24, P F, 30 MCG/0.3 mL, 12 YRS AND ABOVE, IM ([employer]) 09/12/2023 Covid-19, Mrna, Lnp-s, Pf, B ivalent, 30 Mcg, IM, 12 yrs and above ([employer]) 08/16/2022 HEP A - Hepatitis A [...] Nursing Notes * Krysten Valencia RN - 10/22/2023 3:59 PM EST Chair [...] 11:45 AM EST Immunization/Injecti on Hematology/Oncology Treatment, [place] [address] [facility], [place] [address] Nurse, Med 4 200 [facility] [address] 10/25/2023 11:45 AM EST Immunization/Injecti on Hematology/Oncology Treatment, [place] [address] [facility], [place] [address] Nurse, Med 4 200 [facility] [place], [place] [address] 11/04/2023 9:30 AM EST Laboratory Laboratory [address] [place] [id number] Rehana, Lab [address] [place], [place] [address] 11/05/2023 8:30 AM EST Office Visit Hematology/Oncology [facility] 200 [facility], [place] [address] Amber Huizar CRNP 400 [facility] [place] [address] 11/05/2023 9:00 AM EST Hem/Onc Treatment Hematology/Oncology Treatment, [address], [place] [address] [place]hana, Chair 7 Hem On[address] [place], [place] [address] 12/02/2023 2:00 PM EST Office Visit Pulmonary Medicine, [facility] [address] [place] [address] Chris Kaplan MD [address] [place] [address] 12/17/2023 8:45 AM EST Office Visit Hematology/Oncology [facility] 200 [facility] [place] [address] Dakota Armando MD 200 [facility] [address] 07/20/2024 10:15 AM EDT Office Visit Dermatology [facility] 200 [facility] [place] [address] Cal Jernigan MD 200 [facility] [place] [address] 07/21/2024 1:45 PM EDT Office Visit Hematology/Oncology [facility] 200 [facility] [place] [address] Dakota Armando MD 200 [facility] [place] [address] 07/24/2024 11:40 AM EDT Office Visit Family Practice [facility] [address] [place] [address] Sergio Barriga MD [address] [place] [address] Scheduled Procedures Name Priority Associated Diagnoses Date/Ti [...] encounter Medical Devices Implanted Type Area Heating And Refrigeration Inspector Device Identifier Shelf Expiration Date Model / Serial / Lot Stent Viabil Biliary [id number] - [id number] Implanted:Qty : 1 on 07/17/2021 by Guillermo Jones DO at ENDOSCOPY [facility] [employer] [id number] 03/04/2024 [id number] / [id number] / [id number] Port Implant W/8f Poly Cath - [id number] Implanted:Qty : 1 on 09/13/2023 by Gary Rodriguez DO at OR [facility] Right: Chest CR BARD : PERIPHERAL VASCULAR [id number] 04/24/2025 [id number] / / [id number] documented as of this encounter Visit Diagnoses [...] 8:54 AM EST 500 mL 50 mL/hr diphenhydrAMINE (Benadryl) inj 50 mg 50 mg, IV Push, ONCE PRN Other, Hypersensitivity Reaction, Starting on Sat10/22/23 at 0844, Until Sat10/23/23 at 0843, For 24 hours EPINEPHrine 1 MG/ML inj 0.3 mg 0.3 mg, Intramuscular, ONCE PRN Other, Hypersensitivity Reaction or Anaphylaxis, Starting on Sat10/22/23 at 0844, Until Sat10/23/23 at 0843, For 24 hours hEParin 100 UNIT/ML Lock Flush inj 500 Units 500 Units (5 mL), IV Lock, PRN Other, IV Flush, Starting on Sat10/22/23 at 0844, Until Sat10/23/23 at 0843, For 24 hours, Do not flush if lock, PICC, or central line not in place; IV infusing or unable to flush. Hydrocortisone Sod Suc (PF) (Solu-Cortef) inj 100 mg 100 mg, IV Push, ONCE PRN Other, Hypersensitivity Reaction, Starting on Sat10/22/23 at 0844, Until Sat10/23/23 at 0843, For 24 hours oxygen GAS Inhalation, OXYGEN, First dose on Sat10/22/23 at 0915, Until Discontinued, Device/Managed by: Low Flow Device, [...] Flush, Starting on Sat10/22/23 at 0844, Until Sat10/23/23 at 0843, For 24 hours, Do not flush if lock, PICC, or central line not in place; IV infusing or unable to flush. Given 10/22/2023 1:31 PM EST 10 mL Inactive Administered Medications - up to 3 most recent administrations Medication Order MAR Action Action Date Dose Rate Site Atropine sulfate inj 0.4 mg 0.4 mg, IV Push, ONCE, On Sat10/22/23 at 0915, For 1 dose, Give before CPT-11 Given 10/22/2023 11:38 AM EST 0.4 mg Fluorouracil (5-Fu) 4,300 [...] 9:32 AM EST 150 mg 250 mL/hr documented in this encounter Advance Directives Documents on File Type Date Recorded Patient Senior Professional Services Consultant Expl anation Advance Directives and Living [...] Agen t (per Health Care Power of Electrical And Electronic Assembler document) [email or web address] [email or web address] First Alternate Health Care Agent (per Health Care Power of Electrical And Electronic Assembler document) [email or web address] Care Teams Superintendent Police Relationship Specialty Start Date End Date Sergio Barriga MD [address] [place] [address] PCP - General Family Medicine 08/07/19 documented as of this encounter
[2024-04-19] MEDS: CEFEPIME 2,000 MG in SYRINGE 0 ML IV SCH (05:07)
[2024-04-19 05:46] LABS: Hematocrit (blood only) 29.3 % (42.0-52.0); Hemoglobin 9.5 g/dl (14.0-18.0); Mean Corpuscular Hemoglobin 29.1 pg (25.0-34.0); Mean Corpuscular Hgb Conc 32.4 g/dL (32.0-36.0); Mean Corpuscular Volume 89.6 fL (80.0-100.0); Mean Platelet Volume 9.6 fL (9.4-12.4); Platelet Count 144 K/uL (130-400); RDW Coefficient of Variation 16.7 % (11.5-14.5); RDW Standard Deviation 54.5 fL (36.4-46.3); Red Blood Count 3.27 M/uL (4.70-6.10); White Blood Count 8.09 K/ul (4.8-10.8)
[2024-04-19 05:51] LABS: BUN Creatinine Ratio 15.4 (10-20); Calcium 8.2 mg/dl (8.6-10.3); Creatinine Clr Calc Pharmacy 64.2 ml/min; Est GFR (African American) 96.6 ml/min; Est GFR (Non-African American) 83.3 ml/min; Potassium 3.9 mmol/L (3.5-5.1)
[2024-04-19] MEDS: PANCREAZE (LIPASE 4,200U) CAP PO SCH (08:38)
[2024-04-19] MEDS: ASPIRIN 81 MG ECTAB PO SCH (08:38)
[2024-04-19] MEDS: ATORVASTATIN 40 MG TAB PO SCH (08:39)
[2024-04-19] MEDS: PANTOprazole 40 MG TAB PO SCH (08:39)
[2024-04-19] MEDS: MULTIVITAMIN TAB PO SCH (08:39)
--- NOTE | 2024-04-19 10:20 | Discharge Summary ---
Discharge Summary Date of Service April 19, 2024 Notes For Next Care Provider Medication Changes From Visit Levaquin 750mg daily x 5 more days (total 7 days abx) Admission HPI Per Admitting Provider This is a 74-year-old male with PMH of history of pancreatic cancer status post Whipple at [facility], metastasis to the liver on chemo, hypertension, CAD, heterozygous factor V Leiden mutation, alcohol dependence in remission, insomnia and other medical problems listed below who presents from home with fever and cough. Was walking his dog earlier today and felt lightheaded. Took his temperature when he returned home and it was 100.1 F. Took a nape and upon waking retook and it was 104 F. Patient has cough but states he has been chronically. Denies any headache, chest pain, nausea, vomiting, diarrhea, constipation, or urinary symptoms. No known sick contacts. Has been taking all medications as prescribed. Current chemo regimen is gemcitabine abraxane every other week and Lumakras PO daily. Admission Exam Per Admitting Provider GENERAL APPEARANCE: AxOx4, generally well-appearing M, no acute distress. HEENT: NC, AT. MMM. EOMI, clear conjunctiva, oropharynx clear. NECK: Supple without lymphadenopathy. No stiffness or restricted ROM. right port, no signs of surrounding infection HEART: Normal rate and regular rhythm, normal S1/S1, no m/r/g LUNGS: CTAB, moving air well. No crackles or wheezes are heard. ABDOMEN: Soft, nontender, nondistended with good bowel sounds heard. BACK: No CVAT, no obvious deformity. EXTREMITIES: Without cyanosis, clubbing or edema. NEUROLOGICAL: Grossly nonfocal. Alert and oriented, moving all 4 extremities. CN not formally tested but appear grossly intact Skin: Warm and dry without any rash. small abrasion on right knee, no signs of superimposed infection Principal Dx & Hospital Course #1 = Principal Diagnosis (1) Pneumonia: (2) Metastasis to liver: (3) Pancreatic cancer: (4) Dyslipidemia: (5) Anxiety: (6) Hypertension: (7) Insomnia: Plan Mr. Cramer is a 74 year old gentleman with history of pancreatic cancer s/p whipples in 2020 at , Heterozygous status for Factor V Leiden mutation c/b DVT, hemorrhoidal bleed prompting d/c Eliquis, UACS, HLD, HTN, CAD who is admitted for evaluation of fever iso immunocompromised patient. Patient states that he felt generally fatigued, took his temp noting 100.1 F then took a nap; however, upon awakening noted fever of 104 F. Denies cough with sputum, nausea, vomiting, diarrhea, urinary symptoms, sick contacts or other acute symptoms. Reports feeling better since presenting to ED. Spoke on the phone with 04/[address] Armando. Given no current symptoms, afebrile since coming to hospital, and negative infectious work up to date, patient would be ok to discharge. CT imaging with right sided ground glass opacities which have been present on OSH imaging for last year. Given report of fever and proccal, will discharge with levaquin to complete a 7 day course of abx #Fever #Metastatic Pancreatic Adenocarcinoma - KRAS G12C #Immunocompromised s/p Whipple's procedure by Dr. Mike Westbrook on 08/07/2021 at [facility]; completed gemcitabine and Xeloda combination between 08/2021- 01/2022. Currently on gemcitabine Abraxane chemotherapy every other week (02/25/24 - ) and Sotorasib (Lumakras) 960 mg once a day (03/11/24 - ) Will reach out to Dr. Armando in am regarding ? off fever being post treatment v true infection (low suspicion given exam) ContinueCreon 2 tablets with meals Empiric with cefepime and azithro while admitted -UA negative -Blood culture NGTD -afebrile Discharge with levaquin -Continue medications as prescribed -Not neutropenic #HTN #CAD - continue asa and statin #Heterozygous factor V Leiden #Prior DVT -left lower extremity DVT earlier in December 2018. brief anticoagulant treatment; left lower extremity DVT in late 2020. d/c Eliquis 2021 2/2 rectal bleeding related to hemorrhoids. Lovenox DVT ppx continue asa -CTA without clot Discharge Exam Constitutional WD/WN, vitals as above Respiratory normal respiratory effort, lungs clear to auscultation Cardiovascular RRR, no murmur, no edema Gastrointestinal (Abdomen) normal bowel sounds, soft, nontender, no hepatosplenomegaly Musculoskeletal no cyanosis or clubbing, extremities motor strength 5/5 Updated Medication List Medication Instructions Recorded Confirmed Type Medical Marijuana 1 cap PO UD PRN NEEDED 09/10/22 04/18/24 History multivitamin 1 tab PO QAM 09/10/22 04/18/24 History pantoprazole 40 mg tablet,delayed 40 mg PO QAM 09/10/22 04/18/24 History release alprazolam 1 mg tablet 1 mg PO HS Insomnia 04/18/24 04/18/24 History aspirin 81 mg tablet,delayed 81 mg PO DAILY 04/18/24 04/18/24 History release atorvastatin 40 mg tablet 40 mg PO QAM 04/18/24 04/18/24 History ifrzve-kmmotltb-jbufevw 1 cap PO TIDM 04/18/24 04/18/24 History 3,000-9,500-15,000 unit capsule, delayed rel (Creon) sotorasib 120 mg tablet (Lumakras) 960 mg PO QAM 04/18/24 04/18/24 History trazodone 100 mg tablet 100 mg PO HS Insomnia 04/18/24 04/18/24 History levofloxacin 750 mg tablet 750 mg PO DAILY 5 days #5 tabs 04/19/24 Rx Hospital Stay Data Consultations 04/18/24 17:47 ED Decision to Admit Stat Diagnostic Imagining Performed 04/18/24 17:56 CT for pulmonary embolism PE [CT angio chest PE protocol] Stat Pending Results Patient Have Any Pending Studies at Discharge: Yes (blood cultures pending ) Discharge Instructions Given to Patient (Per Discharging Provider) You were admitted for evaluation of fever. Your blood cultures were negative to date. Your urine was not suspicious for infection. Your swab was negative for common viruses Your CT chest seems similar to prior imaging obtained with no new changes outside of the right sided changes noted previously Given your immunocompromised status and report of fever, we will continue a course of Levaquin 750mg daily. Your next dose is tomorrow. If you have return of fever, please go to ED. Total Time Total Time Spent Total Time Spent (In Minutes): 45
[2024-04-19] MEDS: levoFLOXacin 750 MG TAB PO STA (11:00)
[2024-04-19] MEDS ORDERED: HEPARIN 100 UNIT/ML 5ML FLUSH FLUSH PRN (11:06)
[2024-04-19] MEDS ORDERED: AZITHROMYCIN 500 MG in DEXTROSE 5% 250 ML IV SCH (17:00)
--- NOTE | 2024-04-19 21:16 | Electrocardiogram Report ---
Test Reason : Blood Pressure : / mmHG Vent. Rate : 092 BPM Atrial Rate : 092 BPM P-R Int : 184 ms QRS Dur : 072 ms QT Int : 354 ms P-R-T Axes : 071 050 057 degrees QTc Int : 437 ms Sinus rhythm with Premature supraventricular complexes Otherwise normal ECG When compared with ECG of 12-JUL-2021 09:55, Premature supraventricular complexes are now Present Confirmed by Dalton Mcwilliams ([id number]) on 04/19/2024 9:16:03 PM Referred By: REFERRED SELF Confirmed By:Dalton Mcwilliams
--- OUTSIDE RECORDS SUMMARY | 2024-04-30 15:49 | External Medical Summary ---
Author Name Unknown Address Unknown Organization K09:[facility] [address] Laboratory Report Ordering Provider Test Date Status JOSE ROY 04/29/2024 08:50:57 Final Observation Date Value Abnormality Reference (Units ) Status SYNC LEUKOCYTES IN BLOOD BY AUTOMATED COUNT 04/29/2024 08:50:57 5.14 4.00-10.80 (K/uL) Final Segs 04/29/2024 08:50:57 34.6 Below low normal 40.0-75.0 (%) Final Lymphs % 04/29/2024 08:50:57 36.0 18.0-42.0 (%) Final Monos 04/29/2024 08:50:57 15.8 Above high normal 1.0-11.0 (%) Final Eosinophils 04/29/2024 08:50:57 11.5 Above high normal 0.0-6.0 (%) Final Basos 04/29/2024 08:50:57 2.1 Above high normal 0.0-2.0 (%) Final Absolute Segs 04/29/2024 08:50:57 1.78 Below low normal 1.80-7.70 (K/uL) Final Lymphs, absolute 04/29/2024 08:50:57 1.85 1.00-4.80 (K/ul) Final Monos, Abs 04/29/2024 08:50:57 0.81 0.00-1.10 (K/uL) Final Eos, Abs 04/29/2024 08:50:57 0.59 0.00-0.70 (K/uL) Final Basos, Abs 04/29/2024 08:50:57 0.11 0.00-0.20 (K/uL) Final Performing Location [facility] [address]
--- OUTSIDE RECORDS SUMMARY | 2024-04-30 15:49 | External Medical Summary | Summary of Care ---
Author Name Unknown Organization [facility] Address [address] [place] [address] Phone [phone] Care Team Providers Care Billet Driller Name Role Phone Sergio Barriga MD Primary Care Provider + Encounter Details Date Type Department Care Team (Late st Contact Info) Description 04/22/2024 Orders Only Family Practice [facility] [address] [place] [address] Sergio Barriga MD [address] [place] [address] Allergies Active Allergy Reactions Criticality Noted Date Comments Lisinopril Cough Low 08/07/2019 documented as of this encounter (statuses as of 04/22/2024) Medications Medication Sig Dispensed Refills Start Date End Date Status Boost 100 Calorie Smart Oral Liquid Take by mouth. Act miley Multi Vitamin Daily Oral Tablet Take by mouth. Act miley Aspirin 81 MG Oral Tablet Delayed Release Take 1 Tablet by mouth in the morning. Active Pancrelipase (Kfu-Xkbk-Ghjv) 91235-218[address] UNIT Oral Capsule Delayed Release Particles (Creon 99611) 2 cap with meals, 1 with larger [...] as of this encounter (statuses as of 04/22/2024) Active Problems Problem Noted Date Diagnosed Date Malignant neoplasm of body of pancreas 10/06/202 3 Metastasis to liver 08/30/2023 Encounter for antineoplastic chemotherapy 2022 History of carcinoma of pancreas 07/18/2023 Post-viral cough syndrome 07/09/2023 Upper airway cough syndrome 07/09/2023 History of 2019 novel coronavirus disease (COVID -19) 10/16/2022 Coronary artery disease invo lving [place] coronary artery of [place] heart without angina pectoris 08/20/2022 Overview: Severe [...] as of this encounter (statuses as of 04/22/2024) Resolved Problems Problem Noted Date Diagnosed Date [...] WNL, antiphos lipids WNL Factor V+heteroqygous. FM ZP-XDRK-AINFX DIS NEC documented as of this encounter (statuses as of 04/22/2024) Immunizations Name Administration Dates Next Due COVID-19 mRNA, LNP-s, No Pre serve, 2-Dose Series ([employer] 01/13/2022,07/21/2021,02/01/2021,01/04 COVID-19, MRNA-LNP, 23-24, P F, 30 MCG/0.3 mL, 12 YRS AND ABOVE, IM ([employer]) 09/12/2023 Covid-19, Mrna, Lnp-s, Pf, B ivalent, 30 Mcg, IM, 12 yrs and above ([employer] 08/16/2022 HEP A - Hepatitis A [...] Care Team (Late st Contact Info) Description 04/28/2024 9:30 AM EDT Pharmacy Pharmacy Hematology Oncology [address] [address] [facility] Hem/Onc [address] [place] [address] 04/29/2024 8:50 AM EDT Laboratory Laboratory [facility] [place] [address] [facility] [place] [address] Reh[place] Lab [place] [address] [place] [address] 04/29/2024 9:30 AM EDT Office Visit Hematology/Oncology [facility] [place] [address] [facility] [place] [phone] Taylor Barone CRNP [address] [place] [address] 04/29/2024 10:00 AM EDT Hem/Onc Treatment Hematology/Oncology Treatment, [place] [address] [facility] [place] [phone] [place], Chair 7 Hem On[address] [place] [address] 07/21/2024 1:45 PM EDT Office Visit Hematology/Oncology [facility] [address] [facility] [place] [address] Dakota Armando MD [address] [facility] [place], [place] [address] 07/24/2024 11:40 AM EDT Office Visit Family Practice [facility] [address] [facility] [place] [address] Sergio Barriga MD [address] [place] [address] Scheduled Procedures Name Priority Associated Diagnoses Date/Ti [...] this encounter Medical Devices Implanted Type Area Truck Sales Manager Device Identifier Shelf Expiration Date Model / Serial / Lot Duraclip 16mm Xlg Repostn - [id number] Implanted:Qty : 1 on 07/17/2021 by Guillermo Jones DO at ENDOSCOPY [facility] [employer] [id number] 01/10/2024 [id number] / / [id number] Stent Viabil Biliary [id number] - [id number] Implanted:Qty : 1 on 07/17/2021 by Guillermo Jones DO at ENDOSCOPY [facility] [employer] [id number] 03/04/2024 [id number] / [id number] / [id number] Port Implant W/8f Poly Cath - [id number] Implanted:Qty : 1 on 09/13/2023 by Gary Rodriguez DO at OR [facility] Right: Chest CR BARD : PERIPHERAL VASCULAR [id number] 04/24/2025 [id number] / / [id number] documented as of this encounter Procedures Procedure Name Priority Date/Time Associated Diagnosis Comments XR CHEST 1 VIEW Routine 04/18/2024 documented in this encounter Results * XR CHEST 1 VIEW (04/18/2024) Anatomical Region Laterality Modality Chest Other 04/18/2024 History Per Patient RADIOLOGY (RAD GENER AL) documented in this encounter Advance Directives Documents on File Type Date Recorded Patient Crop Specialist Expl anation Advance Directives and Living [...] t (per Health Care Power of Senior Housekeeper document) [email or web address] [email or web address] First Alternate Health Care Agent (per Health Care Power of Senior Housekeeper document) [email or web address] Care Teams Billet Driller Relationship Specialty Start Date End Date Sergio Barriga MD [address] [place] [address] PCP - General Family Medicine 08/07/19 documented as of this encounter
--- OUTSIDE RECORDS SUMMARY | 2024-04-30 15:49 | External Medical Summary | Summary of Care ---
Author Name Unknown Organization [facility] Address [address] [place] [address] Phone [phone] Care Team Providers Care Wire Sawyer Name Role Phone Sergio Barirga MD Primary Care Provider + Encounter Details Date Type Department Care Team (Late st Contact Info) Description 04/22/2024 Orders Only Family Practice [facility] [address] [place] [address] Sergio Barriga MD [address] [place] [address] Allergies Active Allergy Reactions Criticality Noted Date [...] by mouth in the morning. Active Pancrelipase (Bnt-Tngn-Beuh) 61076-[address] UNIT Oral Capsule Delayed Release Particles (Creon 60772) 2 cap with meals, 1 with larger [...] WNL Factor V+heteroqygous. 04/10 colon-Dr Eller [facility] 2 polyps 1 tubular adenoma. Kevin 6y [address] [facility] WNL [address] [facility] WNL, antiphos lipids WNL Factor V+heteroqygous. FM LD-MZXW-GTSIE DIS NEC documented as of this encounter (statuses as of 04/22/2024) Immunizations Name Administration Dates Next Due COVID-19 mRNA, LNP-s, No Pre serve, 2-Dose Series ([employer]) 01/13/2022,07/21/2021,02/01/2021,01/04 COVID-19, MRNA-LNP, 23-24, P F, 30 MCG/0.3 mL, 12 YRS AND ABOVE, IM (Afoundria-Comirnat) 09/12/2023 Covid-19, Mrna, Lnp-s, Pf, B ivalent, 30 Mcg, IM, 12 yrs and above ([employer]) 08/16/2022 HEP A - Hepatitis A [...] 9:30 AM EDT Pharmacy Pharmacy Hematology Oncology [address] [address] [facility] [place] Hem/Onc [address] [place] [address] 04/29/2024 8:50 AM EDT Laboratory Laboratory [facility] [place] [address] [facility] [place] [address] Rehana Lab [place] [address] [address] [place] [address] 04/29/2024 9:30 AM EDT Office Visit Hematology/Oncology [facility] Rehana [place] 200 [facility] [place] [phone] Taylor Barone CRNP 400 [facility] [place] [address] 04/29/2024 10:00 AM EDT Hem/Onc Treatment Hematology/Oncology Treatment, [place] [address] [facility] [address] [place] [address] Rehana, Chair 7 Hem Onc [address] [place] [address] 07/21/2024 1:45 PM EDT Office Visit Hematology/Oncology [facility] 200 [facility] [place] [address] Dakota Armando MD 200 [facility] [place], [place] [address] 07/24/2024 11:40 AM EDT Office Visit Family Practice [facility] [address] [facility] [place] [address] Sergio Barriga MD [address] [place] [address] Scheduled Procedures Name Priority Associated Diagnoses Date/Ti [...] this encounter Medical Devices Implanted Type Area Double End Tenoner Setter Device Identifier Shelf Expiration Date Model / Serial / Lot Duraclip 16mm Xlg Repostn - [id number] Implanted:Qty : 1 on 07/17/2021 by Guillermo Jones DO [place] [facility] [employer] [id number] 01/10/2024 [id number] / / [id number] Stent Viabil Biliary [id number] - [id number] Implanted:Qty : 1 on 07/17/2021 by Guillermo Jones DO [place] [facility] [place] [employer] [id number] 03/04/2024 [id number] / [id number] / [id number] Port Implant W/8f Poly Cath - [id number] Implanted:Qty : 1 on 09/13/2023 by Gary Rodriguez DO at OR [facility] Right: Chest CR BARD : PERIPHERAL VASCULAR [id number] 04/24/2025 [id number] / / [id number] documented as of this encounter Procedures Procedure Name Priority Date/Time Associated Diagnosis Comments CT PULMONARY EMBOLUS W CONTRAST Routine 04/18/2024 documented in this encounter Results * CT PULMONARY EMBOLUS W CONTRAST (04/18/2024) Anatomical Region Laterality Modality Chest, Cardio, Body Other 04/18/2024 History Per Patient RAD CT documented in this encounter Advance Directives Documents on File Type Date Recorded Patient Refrigerating Engineer Expl anation Advance Directives and Living [...] Agen t (per Health Care Power of Perioperative Educator document) [email or web address] Temo Cramer Sibling First Alternate Health Care Agent (per Health Care Power of Perioperative Educator document) [email or web address] Care Teams Wire Sawyer Relationship Specialty Start Date End Date Sergio Barriga MD [address] [place] [address] PCP - General Family Medicine 08/07/19 documented as of this encounter
--- OUTSIDE RECORDS SUMMARY | 2024-04-30 15:49 | External Medical Summary | Summary of Care ---
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 Act miley Multi Vitamin Daily Oral Tablet Take by mouth. Act miley Aspirin 81 MG Oral Tablet Delayed Release Take 1 Tablet by mouth in the morning. Active Pancrelipase (Cml-Cxsa-Vhbh) 87373-[address] UNIT Oral Capsule Delayed Release Particles (Creon 47354) 2 cap with meals, 1 with larger [...] as of this encounter (statuses as of 04/29/2024) Active Problems Problem Noted Date Diagnosed Date Malignant neoplasm of body of pancreas 3 Metastasis to liver 08/30/2023 Encounter for antineoplastic chemotherapy 2022 History of carcinoma of pancreas 07/18/2023 Post-viral cough syndrome 07/09/2023 Upper airway cough syndrome 07/09/2023 History of 2019 novel coronavirus disease (COVID -19) 10/16/2022 Coronary artery disease invo lving [place] coronary artery of [place] heart without angina pectoris 08/20/2022 Overview: Severe [...] WNL Factor V+heteroqygous. 04/10 colon-Dr Eller [facility] 2 polyps 1 tubular adenoma. Kevin 6y 2013 sleep study [facility] WNL [address] Elena [facility] Essential hypertension with goal blood pressure less [...] as of this encounter (statuses as of 04/29/2024) Resolved Problems Problem Noted Date Diagnosed Date [...] WNL, antiphos lipids WNL Factor V+heteroqygous. FM GE-DAZV-HOJGU DIS NEC documented as of this encounter (statuses as of 04/29/2024) Immunizations Name Administration Dates Next Due COVID-19 mRNA, LNP-s, No Pre serve, 2-Dose Series ([employer]) 01/13/2022,07/21/2021,02/01/2021,01/04 COVID-19, MRNA-LNP, 23-24, P F, 30 MCG/0.3 mL, 12 YRS AND ABOVE, IM ([employer]-Comirnat) 09/12/2023 Covid-19, Mrna, Lnp-s, Pf, B ivalent, 30 Mcg, IM, 12 yrs and above ([employer]) 08/16/2022 HEP A - Hepatitis A [...] (Fluzone Hd) 09/03/2023,08/13/2022,08/30/2021 TD, Preservative Free 07/21/1999 TDAP, Age 7 and older, IM (Adacel) 04/11/2016 Varicella Zoster Vaccine (Adult) 03/22/2011 Zoster [...] Care Team (Late st Contact Info) Description 04/29/2024 9:30 AM EDT Office Visit Hematology/Oncology [facility] 200 [facility] [place] [phone] Taylor Barone CRNP [address] [place] [address] 04/29/2024 10:00 AM EDT Hem/Onc Treatment Hematology[facility]Oncology [facility], [place] [facility] [phone] Rehana, Chair 7 Hem Onc [place] [address] [address] [place] [address] Arrived 05/06/2024 9:45 AM EDT Pharmacy Pharmacy Hematology Oncology [facility] [address] [place] [address] [facility] [place] Hem/Onc [address] [place] [address] 07/21/2024 1:45 PM EDT Office Visit Hematology/Oncology [facility] [place] [address] [place] [address] Dakota Armando MD 200 [facility] [place] [address] 07/24/2024 11:40 AM EDT Office Visit Family Practice 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) 04/29/2024 8:52 AM EDT Scheduled Procedures Name Priority Associated [...] this encounter Medical Devices Implanted Type Area Filter Filler Device Identifier Shelf Expiration Date Model / Serial / Lot Duraclip 16mm Xlg Repostn - [id number] Implanted:Qty : 1 on 07/17/2021 by Guillermo Jones DO at [place] [facility] [place] [employer] [id number] 01/10/2024 [id number] / / [id number] Stent Viabil Biliary [id number] - [id number] Implanted:Qty : 1 on 07/17/2021 by Guillermo Jones DO at ENDOSCOPY [facility] [place] [employer] [id number] 03/04/2024 [id number] / [id number] / [id number] Port Implant W/8f Poly Cath - [id number] Implanted:Qty : 1 on 09/13/2023 by Gary Rodriguez DO at OR [facility] Right: Chest CR BARD : PERIPHERAL VASCULAR [id number] 04/24/2025 [id number] / / [id number] documented as of this encounter Procedures Procedure Name Priority Date/Time Associated Diagnosis Comments DIFFERENTIAL, AUTOMATED STAT 04/29/2024 8:50 AM EDT 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) CBC STAT 04/29/2024 8:50 AM EDT 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1(H) 0.0 - 2.0 % 04/29/2024 8:58 AM EDT [facility] 56-02 Absolute Neutrophils 1.78(L) 1.80 - 7.70 K/uL 04/29/2024 8:58 AM EDT [facility] 56-02 Absolute Lymphocytes 1.85 1.00 - 4.80 K/ul 04/29/2024 8:58 AM EDT [facility] 56-02 Absolute Monocytes 0.81 0.00 - 1.10 K/uL 04/29/2024 8:58 AM EDT [facility] 56-02 Absolute Eosinophils 0.59 0.00 - 0.70 K/uL 04/29/2024 8:58 AM EDT [facility] 56-02 Absolute Basophils 0.11 0.00 - 0.20 K/uL 04/29/2024 8:58 AM EDT [facility] 56-02 Blood Venous blood specimen / Unknown Venipuncture / Unknown 04/29/2024 8:50 AM EDT 04/29/2024 8:50 AM EDT Dakota Armando MD LAB BLOOD ORDERABLES [facility] [address]- [address] [place] [address] * (ABNORMAL) CBC (04/29/2024 8:50 AM EDT) WBC 5.14 4.00 - 10.80 K/uL 04/29/2024 8:58 AM EDT [facility] 56- RBC 3.94 4.50 - 5.25 M/uL 04/29/2024 8:58 AM EDT [facility] 56- HGB 11.5(L) 14.0 - 16.8 g/dL 04/29/2024 8:58 AM EDT [facility] 56- HCT 37.4(L) 40.0 - 48.4 % 04/29/2024 8:58 AM EDT [facility] 56- MCV 94.9 82.0 - 99.5 fL 04/29/2024 8:58 AM EDT [facility] 56- MCH 29.2 27.0 - 34.0 pg 04/29/2024 8:58 AM EDT [facility] 56- MCHC 30.7 32.0 - 36.0 g/dL 04/29/2024 8:58 AM EDT [facility] 56- RDW 17.5 11.5 - 15.5 % 04/29/2024 8:58 AM EDT [facility] 56- PLT 493(H) 140 - 400 K/uL 04/29/2024 8:58 AM EDT [facility] 56- MPV 8.3 6.6 - 11.1 fL 04/29/2024 8:58 AM EDT [facility] 56- Blood Venous blood specimen / Unknown Venipuncture / Unknown 04/29/2024 8:50 AM EDT 04/29/2024 8:50 AM EDT Dakota Armando MD LAB BLOOD ORDERABLES [facility] 56- [address] [place] [address] documented in this encounter Visit Diagnoses Diagnosis 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) Malignant neoplasm of body of pancreas documented in this encounter Advance Directives Documents on File Type Date Recorded Patient Skimmer Reverberatory Expl anation Advance Directives and Living Will [...] Agen t (per Health Care Power of Patrol Agent document) [email or web address] Temo Cramer Sibling First Alternate Health Care Agent (per Health Care Power of Patrol Agent document) [email or web address] Care Teams Automotive Power Electronics Engineer Relationship Specialty Start Date End Date Sergio Barriga MD [address] [place] [address] PCP - General Family Medicine 08/07/19 documented as of this encounter
--- OUTSIDE RECORDS SUMMARY | 2024-04-30 15:49 | External Medical Summary ---
Author Name Unknown Address Unknown Organization K09:[facility] [address] [place] [address] Laboratory Report Ordering Provider Test Date Status JOSE ROY 04/29/2024 08:50:57 Final Observation Date Value Abnormality Reference (Units ) Status BUN 04/29/2024 08:50:57 16 6-20 (mg/dL) Final Creatinine 04/29/2024 08:50:57 1.2 0.6-1.2 (mg/dL) Final Glomerular filtration rate/1.73 sq M.predicted [Volume Rate/Area] in Serum, Plasma or Blood by Creatinine-based formula (CKD-EPI) 04/29/2024 08:50:57 67 >=60 (mL/min) Final eGFR is calculated based on the CKD-EPI 2020 equation Sodium 04/29/2024 08:50:57 138 135-146 (m mol/L) Final Potassium 04/29/2024 08:50:57 4.4 3.5-5.1 (m mol/L) Final Cl 04/29/2024 08:50:57 98 98-107 (mm ol/L) Final CO2 04/29/2024 08:50:57 30 22-32 (mmo l/L) Final Anion gap 04/29/2024 08:50:57 10 7-15 (mmol /L) Final Glucose 04/29/2024 08:50:57 142 Above high normal 70 -120 (mg/dL) Final Albumin 04/29/2024 08:50:57 4.1 3.8-5.0 (g /dL) Final AST (Aspartate aminotransferase) 04/29/2024 08:50:57 54 Above high normal 10-50 (U/L) Final Alk Phos 04/29/2024 08:50:57 113 35-130 (U/ L) Final Bilirubin, Total 04/29/2024 08:50:57 0.4 <=1 .2 (mg/dL) Final Calcium 04/29/2024 08:50:57 9.4 8.4-10.2 ( mg/dL) Final Protein 04/29/2024 08:50:57 7.2 6.0-8.3 (g /dL) Final ALT (Alanine aminotransferase) 04/29/2024 08:50:57 31 10-50 (U/L) Silverio baker Performing Location [facility] [place] [address]
--- OUTSIDE RECORDS SUMMARY | 2024-04-30 15:49 | External Medical Summary ---
Author Name Unknown Address Unknown Organization K01[facility] [place] [address] [place] [address] Laboratory Report Ordering Provider Test Date Status JOSE ROY 04/29/2024 08:52:18 Final Observation Date Value Abnormality Reference (Units ) Status Cancer Ag 19-9 04/29/2024 08:52:18 83.6 Above high norm al <35.0 (U/mL) Final Performing Location [facility] - [address] [place] [address]
--- OUTSIDE RECORDS SUMMARY | 2024-04-30 15:49 | External Medical Summary ---
Author Name Unknown Address Unknown Organization K09:[facility] [place] [address] Laboratory Report Ordering Provider Test Date Status JOSE ROY 04/29/2024 08:50:57 Final Observation Date Value Abnormality Reference (Units ) Status WBC, Total 04/29/2024 08:50:57 5.14 4.00-10.8 0 (K/uL) Final RBC 04/29/2024 08:50:57 3.94 4.50-5.25 (M/uL) Final Hemoglobin 04/29/2024 08:50:57 11.5 Below low normal 14 .0-16.8 (g/dL) Final HCT 04/29/2024 08:50:57 37.4 Below low normal 40. 0-48.4 (%) Final MCV 04/29/2024 08:50:57 94.9 82.0-99.5 (fL) Final MCH 04/29/2024 08:50:57 29.2 27.0-34.0 (pg) Final MCHC 04/29/2024 08:50:57 30.7 32.0-36.0 (g/dL) Final RDW 04/29/2024 08:50:57 17.5 11.5-15.5 (%) Final Platelets 04/29/2024 08:50:57 493 Above high normal 14 0-400 (K/uL) Final MPV 04/29/2024 08:50:57 8.3 6.6-11.1 ( fL) Final Performing Location [facility] [place] [address]
--- OUTSIDE RECORDS SUMMARY | 2024-04-30 15:50 | External Medical Summary | Summary of Care ---
Author Name Unknown Organization [facility] Address [address] [address] Phone [phone] Care Team Providers Care Groover Operator Name Role Phone Sergio Barriga MD Primary Care Provider + Reason for Visit * Reason Onset Date Comments Appointment 04/21/2024 Encounter Details Date Type Department Care Team (Late st Contact Info) Description 04/21/2024 Telephone Hematology/Oncology [place] Shaina [place] 200 [facility] [place] [phone] Dakota Armando MD 200 [facility] [place] [address] Appointment Allergies Active Allergy Reactions Criticality Noted Date Comments Lisinopril Cough Low 08/07/2019 documented as of this encounter (statuses as of 04/21/2024) Medications Medication Sig Dispensed Refills Start Date End Date Status Boost 100 Calorie Smart Oral Liquid Take by mouth. Act miley Multi Vitamin Daily Oral Tablet Take by mouth. Act miley Aspirin 81 MG Oral Tablet Delayed Release Take 1 Tablet by mouth in the morning. 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 FM BB-SAOZ-LFPJV DIS NEC documented as of this encounter (statuses as of 04/21/2024) Immunizations Name Administration Dates Next Due COVID-19 mRNA, LNP-s, No Pre serve, 2-Dose Series ([employer]) 01/13/2022,07/21/2021,02/01/2021,12/26 COVID-19, MRNA-LNP, 23-24, P F, 30 MCG/0.3 mL, 12 YRS AND ABOVE, IM ([place]-Comirnat) 09/12/2023 Covid-19, Mrna, Lnp-s, Pf, B ivalent, 30 Mcg, IM, 12 yrs and above ([employer]) 08/16/2022 HEP A - Hepatitis A (Adult [...] Telephone Encounter - Karen Kerns OSA - 04/21/2024 11:03 AM EDT Per the prior note it stays he was aware but Called again and made sure to retell pt of the apts * Telephone Encounter - Karen Kerns OSA - 04/21/2024 10:36 AM EDT Updated appts per note below * Telephone Encounter - Juan Smith RN - 04/21/2024 9:08 AM EDT Spoke with Dr. Whelan regarding patients recent fever and current antibiotic use. He would like to hold the patient treatment by 1 week , MTM recommending he hold Lumakras while on antibiotics and start taking when he comes again for his next treatment. Called patient and informed him, he is agreeable to this. Advised we will bring him in next week for treatment. He is aware that we are holding Lumakras as well until he restarts his treatment next week. Scheduling- Please: - Cancel treatment appointment today, pt would still like to have labs completed so I advised that this is ok for today. - Reschedule 2 hour apt "Gemzar/Abraxane [id number]" on 03/29. - Follow up appointment on 03/29 with Taylor prior to treatment as well as lab appointment for "CBCD/CMP" - Cancel treatment appointment/lab/follow up scheduled 05/06. documented in this encounter Plan of Treatment Upcoming Encounters Date Type Department Care Team (Late st Contact Info) Description 04/28/2024 9:30 AM EDT Pharmacy Pharmacy Hematology Oncology [facility] [address] [place] [address] [facility] Hem/Onc [facility] [place] [address] 04/29/2024 8:50 AM EDT Laboratory Laboratory [facility] [address] [place] [phone] Re[facility] Lab [address] [place] [address] 04/29/2024 9:30 AM EDT Office Visit Hematology/Oncology [facility] [address] [place] [phone] Taylor Barone, CHRISTO [address] [place] [address] 04/29/2024 10:00 AM EDT Hem[facility] [phone] Rehana, Chair 7 Hem Onc [address] [place] [address] 07/21/2024 1:45 PM EDT Office Visit Hematology/Oncology [facility] [address] [place] [phone] Dakota Armando MD 200 [facility] [place] [address] 07/24/2024 11:40 AM EDT Office Visit Family Practice [facility] [address] [place] [address] Sergio Barriga MD [address] [place] [address] Scheduled Procedures Name Priority Associated Diagnoses Date/Ti [...] encounter Medical Devices Implanted Type Area Commercial Glazier Device Identifier Shelf Expiration Date Model / Serial / Lot Duraclip 16mm Xlg Repostn - [id number] Implanted:Qty : 1 on 07/17/2021 by Guillermo Jones DO at ENDOSCOPY [facility] [place] [employer] [id number] 01/10/2024 [id number] / / [id number] Stent Viabil Biliary [id number] - [id number] Implanted:Qty : 1 on 07/17/2021 by Guillermo Jones DO at [place] [facility] [place] [employer] [id number] 03/04/2024 [id number] / [id number] / [id number] Port Implant W/8f Poly Cath - [id number] Implanted:Qty : 1 on 09/13/2023 by Gary Rodriguez DO at OR [facility] Right: Chest CR BARD : PERIPHERAL VASCULAR [id number] 04/24/2025 [id number] / / [id number] documented as of this encounter Advance Directives Documents on File Type Date Recorded Patient Map Plotter Expl anation Advance Directives and Living Will 10/23/2022 4:43 PM Virginie Cramer KarlLibhartLivingWill .PDF * Full Code (Latest Code Status on File) Date Activated Date Inactivated Comments 07/16/2021 10:04 AM 07/18/2021 6:28 PM This order reflects the patients wishes and were consensually agreed upon. Healthcare Agents on File Name Relationship Healthcare Agent Relationship Communication Virginie Cramer Spouse Health Care Agen t (per Health Care Power of Machine Fitter document) [email or web address] Party Temo Bela Sibling First Alternate Health Care Agent (per Health Care Power of Machine Fitter document) [email or web address] Care Teams Groover Operator Relationship Specialty Start Date End Date Sergio Barriga MD [address] [place] [address] PCP - General Family Medicine 08/07/19 documented as of this encounter
--- OUTSIDE RECORDS SUMMARY | 2024-04-30 15:50 | External Medical Summary | Summary of Care ---
Author Name Unknown Organization [facility] Address [address] [facility] [address] Phone [phone] Care Team Providers Care 3D Designer Name Role Phone Sergio Barriga MD Primary Care Provider + Reason for Visit * Reason Onset Date Comments Appointment 04/21/2024 Encounter Details Date Type Department Care Team (Late st Contact Info) Description 04/21/2024 Telephone Hematology/Oncology [facility] Shaina Kimball 200 [facility] [place] [phone] Dakota Armando MD 200 [facility] [place] [address] Appointment Allergies Active Allergy Reactions Criticality Noted [...] by mouth in the morning. Active Pancrelipase (Yho-Hrhc-Tuer) 05539-57[address] UNIT Oral Capsule Delayed Release Particles (Creon 71218) 2 cap with meals, 1 with larger [...] 10/16/2022 Coronary artery disease invo lving [place] coronary artery of [place] heart without angina pectoris 08/20/2022 Overview: Severe [...] Factor V+heteroqygous. 04/10 colon-Dr Eller [facility] 2 polyps 1 tubular adenoma. Kevin 5y 2013 sleep study [facility] WNL [address] [facility] [...] WNL, antiphos lipids WNL Factor V+heteroqygous. FM PK-LGTF-QWYBW DIS NEC documented as of this encounter (statuses as of 04/21/2024) Immunizations Name Administration Dates Next Due COVID-19 mRNA, LNP-s, No Pre serve, 2-Dose Series (JotSpot) 01/13/2022,07/21/2021,02/01/2021,12/26 COVID-19, MRNA-LNP, 23-24, P F, 30 MCG/0.3 mL, 12 YRS AND ABOVE, IM (Metaset-Comirnat) 09/12/2023 Covid-19, Mrna, Lnp-s, Pf, B ivalent, [...] Hematology Oncology [facility] [address] [place] [address] [facility], [facility] Hem/Onc [address] [place] [address] 04/29/2024 8:50 AM EDT Laboratory Laboratory [facility] [place] 200 [facility] [place] [phone] Rehana, Lab [facility] 200 [facility] [place] [facility] [place] [address] 04/29/2024 9:30 AM EDT Office Visit Hematology/Oncology [facility] Rehana [place] 200 [facility] [phone] Taylor Barone CRNP [address] [place] [address] 04/29/2024 10:00 AM EDT Hem[facility] 200 [facility] [address] [place] [phone] Rehana, Chair 7 Hem Onc [address] [place] [address] 07/21/2024 1:45 PM EDT Office Visit Hematology/Oncology [facility] Rehana [place] 200 [facility] [phone] Dakota Armando MD 200 [facility] [address] 07/24/2024 11:40 AM EDT Office Visit [facility] [address] [address] Sergio Barriga MD [address] [place] [address] Scheduled Procedures Name Priority Associated Diagnoses Date/Ti [...] this encounter Medical Devices Implanted Type Area Skin Former Device Identifier Shelf Expiration Date Model / Serial / Lot Duraclip 16mm Xlg Repostn - [id number] Implanted:Qty : 1 on 07/17/2021 by Guillermo Jones DO at ENDOSCOPY [facility] CONMED REYNALDO [id number] 01/10/2024 [id number] / / [id number] Stent Viabil Biliary [id number] - [id number] Implanted:Qty : 1 on 07/17/2021 by Guillermo Jones DO at ENDOSCOPY [facility] CONMED REYNALDO [id number] 03/04/2024 [id number] / [id number] / [id number] Port Implant W/8f Poly Cath - [id number] Implanted:Qty : 1 on 09/13/2023 by Gary Rodriguez DO at OR [facility] Right: Chest CR BARD : PERIPHERAL VASCULAR [id number] 04/24/2025 [id number] / / [id number] documented as of this encounter Advance Directives Documents on File Type Date Recorded Patient Automotive Customer Experience Advisor Expl anation Advance Directives and Living [...] Agen t (per Health Care Power of Him Tech document) [email or web address] Temo Bela Sibling First Alternate Health Care Agent (per Health Care Power of Him Tech document) Care Teams 3D Designer Relationship Specialty Start Date End Date Sergio Barriga MD [address] [place] [address] PCP - General Family Medicine 08/07/19 documented as of this encounter
--- OUTSIDE RECORDS SUMMARY | 2024-04-30 15:50 | External Medical Summary | Summary of Care ---
Author Name Unknown Organization [facility] Address [address] [facility] [address] Phone [phone] Care Team Providers Care Inspector Electromechanical Name Role Phone Sergio Barriga MD Primary Care Provider + Reason for Visit * Reason Onset Date Comments Appointment 04/21/2024 Encounter Details Date Type Department Care Team (Late st Contact Info) Description 04/21/2024 Telephone Hematology/Oncology [place] Shaina Kimball 200 [facility] [place] [phone] Dakota Armando MD 200 [facility] [place] [address] Appointment Allergies Active Allergy Reactions Criticality Noted [...] by mouth in the morning. Active Pancrelipase (Gbl-Ssuy-Lado) 00052-[address]303 UNIT Oral Capsule Delayed Release Particles (Creon 61090) 2 cap with meals, 1 with larger [...] -19) 10/16/2022 Coronary artery disease invo lving [place] coronary artery of [place] heart without angina pectoris 08/20/2022 Overview: Severe [...] lipids WNL Factor V+heteroqygous. 04/10 colon-Dr Eller [facility] 2 polyps 1 tubular adenoma. Kevin 6y 2013 sleep study [facility] WNL [address] Elena [facility] Essential hypertension with goal [...] WNL, antiphos lipids WNL Factor V+heteroqygous. FM DO-IGPG-CXLKO DIS NEC documented as of this encounter (statuses as of 04/21/2024) Immunizations Name Administration Dates Next Due COVID-19 mRNA, LNP-s, No Pre serve, 2-Dose Series (Deliveroo) 01/13/2022,07/21/2021,02/01/2021,12/26 COVID-19, MRNA-LNP, 23-24, P F, 30 MCG/0.3 mL, 12 YRS AND ABOVE, IM (Social Reality-Comirnat) 09/12/2023 Covid-19, Mrna, Lnp-s, Pf, B ivalent, 30 Mcg, IM, 12 yrs and above (Deliveroo) 08/16/2022 HEP A - Hepatitis A (Adult [...] Oncology [facility] [address] [place] [address] [facility], [facility] Hem/Onc [address] [place] [address] 04/29/2024 8:50 AM EDT Laboratory Laboratory [facility] [place] 200 [facility] [place] [phone] Rehana, Lab [facility] 200 [facility] [place] [place] [address] 04/29/2024 9:30 AM EDT Office Visit Hematology/Oncology [facility] Rehana [place] 200 [facility] [place] [place] [phone] Taylor Barone CRNP [address] [place] [address] 04/29/2024 10:00 AM EDT Hem[facility] [address] [facility] [address] [place] [phone] Rehana, Chair [address] [place] [address] 07/21/2024 1:45 PM EDT Office Visit Hematology/Oncology [facility] Rehana [place] 200 [facility] [place] [place] [phone] Dakota Armando MD 200 [facility] [place] [place] [address] 07/24/2024 11:40 AM EDT Office Visit [facility] [address] [address] [address] Sergio Barriga MD [address] [place] [address] Scheduled Procedures Name Priority Associated Diagnoses Date/Ti [...] this encounter Medical Devices Implanted Type Area Safety Assistant Device Identifier Shelf Expiration Date Model / Serial / Lot Duraclip 16mm Xlg Repostn - [id number] Implanted:Qty : 1 on 07/17/2021 by Guillermo Jones DO at ENDOSCOPY [facility] CONMED REYNALDO [id number] 01/10/2024 [id number] / / [id number] Stent Viabil Biliary [id number] - [id number] Implanted:Qty : 1 on 07/17/2021 by Guillermo Jones DO at ENDOSCOPY [facility] CONMED REYNALDO [id number] 03/04/2024 [id number] / [id number] / [id number] Port Implant W/8f Poly Cath - [id number] Implanted:Qty : 1 on 09/13/2023 by Gary Rodriguez DO at OR [facility] Right: Chest CR BARD : PERIPHERAL VASCULAR [id number] 04/24/2025 [id number] / / [id number] documented as of this encounter Advance Directives Documents on File Type Date Recorded Patient Motion Picture Director Expl anation Advance Directives and Living [...] Agen t (per Health Care Power of Hair Or Beauty Salon Assistant document) [email or web address] Temo Bela Sibling First Alternate Health Care Agent (per Health Care Power of Hair Or Beauty Salon Assistant document) Care Teams Inspector Electromechanical Relationship Specialty Start Date End Date Sergio Barriga MD [address] [address] PCP - General Family Medicine 08/07/19 documented as of this encounter
--- OUTSIDE RECORDS SUMMARY | 2024-04-30 15:50 | External Medical Summary | Summary of Care ---
Author Name Unknown Organization [facility] Address [address] [facility] [address] Phone [phone] Care Team Providers Care Electromedical Service Engineer Name Role Phone Sergio Barriga MD Primary Care Provider + Reason for Visit * Reason Onset Date Comments Appointment 04/21/2024 Encounter Details Date Type Department Care Team (Late st Contact Info) Description 04/21/2024 Telephone Hematology/Oncology [place] Shaina Kimball 200 [facility] [place] [phone] Dakota Armando MD 200 [facility] [place] [address] Appointment Allergies Active Allergy Reactions Criticality Noted [...] by mouth in the morning. Active Pancrelipase (Fak-Ebfv-Tqhw) 89187-60041 UNIT Oral Capsule Delayed Release Particles (Creon 22066) 2 cap with meals, 1 with larger [...] -19) 10/16/2022 Coronary artery disease invo lving [place] coronary artery of [place] heart without angina pectoris 08/20/2022 Overview: Severe [...] WNL, antiphos lipids WNL Factor V+heteroqygous. FM EO-HGVU-QGARY DIS NEC documented as of this encounter (statuses as of 04/21/2024) Immunizations Name Administration Dates Next Due COVID-19 mRNA, LNP-s, No Pre serve, 2-Dose Series ([email or web address].com) 01/13/2022,07/21/2021,02/01/2021,01/04 COVID-19, MRNA-LNP, 23-24, P F, 30 MCG/0.3 mL, 12 YRS AND ABOVE, IM ([facility]) 09/12/2023 Covid-19, Mrna, Lnp-s, Pf, B ivalent, 30 Mcg, IM, 12 yrs and above ([email or web address].com) 08/16/2022 HEP A - Hepatitis A (Adult [...] Team (Late st Contact Info) Description 04/21/2024 10:30 AM EDT Laboratory Laboratory Sharif Kimball [place] [address] [place] [phone] Renee Kimball [address] [place] [address] 04/28/2024 9:30 AM EDT Pharmacy Pharmacy Hematology Oncology [facility] [place] [address] [place] [address] [facility] [place], [facility] Hem/Onc [address] [place] [address] 05/06/2024 10:00 AM EDT Laboratory Laboratory [facility] [place] 200 [facility] [place] [phone] [place] [address] 05/06/2024 10:30 AM EDT Office Visit Hematology/Oncology [facility] [place] 200 [facility] [place] [phone] Taylor Barone CRNP [address] [place] [address] 05/06/2024 11:00 AM EDT Hem/Onc Treatment Hematology/Oncology Treatment, [place] 200 [facility] [address] [place], [place] [phone] Rehana, Chair [address] Hem On[address] [place], [place] [address] 07/21/2024 1:45 PM EDT Office Visit Hematology/Oncology [facility] [address] [place] [phone] Dakota Armando MD 200 [facility] [place], [place] [address] 07/24/2024 11:40 AM EDT Office Visit [facility] [address] [place] [address] Sergio Barriga MD [address] [place] [address] Scheduled Procedures Name Priority Associated Diagnoses Date/Ti [...] encounter Medical Devices Implanted Type Area Manager Inspection Device Identifier Shelf Expiration Date Model / Serial / Lot Duraclip 16mm Xlg Repostn - [id number] Implanted:Qty : 1 on 07/17/2021 by Guillermo Jones DO at ENDOSCOPY [facility] [employer] REY[place]LDO [id number] 01/10/2024 [id number] / / [id number] Stent Viabil Biliary [id number] - [id number] Implanted:Qty : 1 on 07/17/2021 by Guillermo Jones DO at ENDOSCOPY [facility] CONMED REYNALDO [id number] 03/04/2024 [id number] / [id number] / [id number] Port Implant W/8f Poly Cath - [id number] Implanted:Qty : 1 on 09/13/2023 by Gary Rodriguez DO at OR [facility] Right: Chest CR BARD : PERIPHERAL VASCULAR [id number] 04/24/2025 [id number] / / [id number] documented as of this encounter Advance Directives Documents on File Type Date Recorded Patient Occupational Therapy Teacher Expl anation Advance Directives and Living [...] Agen t (per Health Care Power of Sanitary Engineering Teacher document) [email or web address] Temo Bela Sibling First Alternate Health Care Agent (per Health Care Power of Sanitary Engineering Teacher document) Care Teams Electromedical Service Engineer Relationship Specialty Start Date End Date Sergio Barriga MD [address] [place] [address] PCP - General Family Medicine 08/07/19 documented as of this encounter
--- OUTSIDE RECORDS SUMMARY | 2024-04-30 15:50 | External Medical Summary | Summary of Care ---
Author Name Unknown Organization [facility] Address [address] [place] [address] Phone [phone] Care Team Providers Care Mold Sander Name Role Phone Sergio Barriga MD Primary Care Provider + Reason for Visit * Reason Comments Medication Management Encounter Details Date Type Department Care Team (Late st Contact Info) Description 04/21/2024 9:30 AM EDT Pharmacy Pharmacy Hematology Oncology [facility] [address] [place] [address] [facility], [facility] Hem/Onc [address] [place], [place] [id number] Malignant neoplasm of pancreas, unspecified location of [...] by mouth in the morning. 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 04/10 colon-Dr Eller [facility] 2 polyps 1 tubular adenoma. Kevin 6y 2013 sleep study [facility] WNL [address] Elena [facility] Essential hypertension with goal blood pressure less [...] WNL, antiphos lipids WNL Factor V+heteroqygous. FM DC-INRY-YNGWR DIS NEC documented as of this encounter (statuses as of 04/21/2024) Immunizations Name Administration Dates Next Due COVID-19 mRNA, LNP-s, No Pre serve, 2-Dose Series ([email or web address]) 01/13/2022,07/21/2021,02/01/2021,01/04 COVID-19, MRNA-LNP, 23-24, P F, 30 MCG/0.3 mL, 12 YRS AND ABOVE, IM ([facility]) 09/12/2023 Covid-19, Mrna, Lnp-s, Pf, B [...] this encounter Progress Notes * Jen Teixeira, [facility] - 04/21/2024 9:36 AM EDT MEDICATION THERAPY MANAGEMENT SOTORASIB TREATMENT PROGRESS NOTE Rafael Cramer [phone] Patient Phone Numbers Preferred Lab: [facility]: [employer] Communication: Chart review Treatment: Medication: Sotorasib (Lumakras) Indication/Staging/Diagnosis Code: met pancreatic cancer, KRAS G12C mutation / C25.1 Dose: 960mg (8-120mg tab) daily Administration: +/- food Start Date: 03/11/24 Primary Roof Bolting Coal Miner/Oncologist: Dr. Gina Armando Additional Therapy: Gemcitabine Abraxane Supportive Care Meds: Olanzapine Ondansetron Prochlorperazine Prophylactic Meds: none Treatment History: 08/07/21: Whipple's procedure 08/2021-01/2022: gemcitabine + capecitabine 09/17/23-01/2024: mFOLFIRINOX Interval History: Per OV 03/17/24, pt to complete 2 cycles of gemcitabine/abraxane and then will consider discontinuing for single agent sotorasib Per TE 04/18/24, pt admitted to [facility] 04/18/24-04/19/24 for fever and discharged on levoflaxacin. Pt advised to HOLD all treatment (including sotorasib) and r/s treatment in 1 week Changes to medication list since last visit? Yes, levofloxacin - no DDI Assessment and Plan: MTM to follow up in 1 week to assess repeat labs and sotorasib restart Assessment of compliance: compliant Assessment of adverse effects attributed to drug therapy: N/A Dose adjustment needed based on lab or adverse drug reaction? Yes, HOLD Follow up: 1 week Jen Teixeira, PharmD, BCOP Clinical Pharmacist, [facility] Oral Chemotherapy [facility] 04/21/2024, 9:38 AM Monitoring Parameters: Estimated CrCl Serum creatinine: 1 mg/dL 04/07/24 1002 Estimated creatinine clearance: 58.6 mL/min Hepatitis panel Latest Reference Range & [...] Spent on Encounter: 6 - 10 minutes documented in this encounter Plan of Treatment Upcoming Encounters Date Type Department Care Team (Late st Contact Info) Description 04/21/2024 10:30 AM EDT Laboratory Laboratory [facility] Garcia [address] [place] [phone] Rehana Lab [address] [place] [address] 04/28/2024 9:30 AM EDT Pharmacy Pharmacy Hematology Oncology [facility] [address] [place] [address] [facility], [facility] Hem/Onc [address] [place] [address] 05/06/2024 10:00 AM EDT Laboratory Laboratory [place] [facility] Garcia [address] [place] [phone] Rehana Lab [address] [place] [address] 05/06/2024 10:30 AM EDT Office Visit Hematology/Oncology [facility] [address] [place] [phone] Taylor Barone, CHRISTO [address] [place] [address] 05/06/2024 11:00 AM EDT Hem[facility]c [facility] [address] [place], [place] [phone] Rehana, Chair 6 Hem Onc [address] [place] [address] 07/21/2024 1:45 PM EDT Office Visit Hematology/Oncology [facility] 200 [facility] [place] [phone] Dakota Armando MD [address] [place] [address] 07/24/2024 11:40 AM EDT Office Visit Family [facility] 132 [facility] [place] [address] Sergio Barriga MD 132 [facility] [place] [address] Scheduled Procedures Name Priority Associated Diagnoses Date/Ti [...] this encounter Medical Devices Implanted Type Area Die Filer Device Identifier Shelf Expiration Date Model / Serial / Lot Duraclip 16mm Xlg Repostn - [id number] Implanted:Qty : 1 on 07/17/2021 by Guillermo Jones DO at ENDOSCOPY [facility] [employer] REY[place]O [id number] 01/10/2024 [id number] / / [id number] Stent Viabil Biliary [id number] - [id number] Implanted:Qty : 1 on 07/17/2021 by Guillermo Jones DO at ENDOSCOPY [facility] [employer] RE[place]O [id number] 03/04/2024 [id number] / [id number] / [id number] Port Implant W/8f Poly Cath - [id number] Implanted:Qty : 1 on 09/13/2023 by Michael, Salman Sikandar, DO at OR [facility] Right: Chest CR BARD : PERIPHERAL VASCULAR [id number] 04/24/2025 [id number] / / [id number] documented as of this encounter Visit Diagnoses Diagnosis Malignant neoplasm of pancreas, unspecified location of malignancy (HCC)- Primary documented in this encounter Advance Directives Documents on File Type Date Recorded Patient Quarter Folder Expl anation Advance Directives and Living Will 10/23/2022 4:43 PM Virginie HansenlLibhartLivingWiyonas .PDF * Full Code (Latest Code Status on File) Date Activated Date Inactivated Comments 07/16/2021 10:04 AM 07/18/2021 6:28 PM This order reflects the patients wishes and were consensually agreed upon. Healthcare Agents on File Name Relationship Healthcare Agent Relationship Communication Virginie Cramer Spouse Health Care Agen t (per Health Care Power of Jack Strip Assembler document) [email or web address] Temo Bela Sibling First Alternate Health Care Agent (per Health Care Power of Jack Strip Assembler document) [email or web address] Care Teams Mold Sander Relationship Specialty Start Date End Date Sergio Barriga MD [address] [place] [address] PCP - General Family Medicine 08/07/19 documented as of this encounter
--- OUTSIDE RECORDS SUMMARY | 2024-04-30 15:51 | External Medical Summary | Summary of Care ---
Author Name Unknown Organization [facility] Address [address] [place] [address] Phone [phone] Care Team Providers Care Manager Medical Affairs Name Role Phone Sergio Barriga MD Primary Care Provider + Reason for Visit * Reason Onset Date Comments Fever 04/18/2024 Encounter Details Date Type Department Care Team (Late st Contact Info) Description 04/18/2024 Telephone Hematology Oncology [facility] [address] [place] [address] Zhao Bedolla MD [address] [place] [address] Fever Allergies Active Allergy Reactions [...] by mouth in the morning. Active Pancrelipase (Vsd-Ykss-Ktbd) 29917-68516 UNIT Oral Capsule Delayed Release Particles (Creon 84012) 2 cap with meals, 1 with larger [...] 10/16/2022 Coronary artery disease invo lving [facility] [place] coronary artery of [facility] [place] heart without angina pectoris 08/20/2022 Overview: Severe [...] V+heteroqygous. 04/10 colon-Dr Eller [facility] 2 polyps 1 tubular adenoma. Kevin 6y 2013 sleep study [facility] WNL [address] Elena [facility] Essential hypertension with goal blood pressure less [...] WNL, antiphos lipids WNL Factor V+heteroqygous. FM VK-UVFZ-SKIIA DIS NEC documented as of this encounter (statuses as of 04/21/2024) Immunizations Name Administration Dates Next Due COVID-19 mRNA, LNP-s, No Pre serve, 2-Dose Series ([employer]) 01/13/2022,07/21/2021,02/01/2021,12/26 COVID-19, MRNA-LNP, 23-24, P F, 30 MCG/0.3 mL, 12 YRS AND ABOVE, IM (Streamweaver-Comirnat) 09/12/2023 Covid-19, Mrna, Lnp-s, Pf, B ivalent, 30 Mcg, IM, 12 yrs and above ([employer]) 08/16/2022 HEP A - Hepatitis A (Adult [...] Telephone Encounter - Courtney Plascencia RN - 04/21/2024 8:49 AM EDT Patient discharged home 04/19/24 with levaquin x5 more days (to complete 7 total days). Discharge summary printed to be scanned into chart. Patient is on the schedule today for labs/ chemo. Left message for patient to return call. Called and spoke to patients . Patient afebrile since discharge, still has a few days of antibiotics left. Patient feels ok and wants to come for treatment today. Advised her that we would reviewwith covering provider and would call back with whether patient is ok to come for treatment. She verbalized understanding. * Telephone Encounter - Dakota Armando MD - 04/19/2024 11:07 AM EDT Admitted at [facility], spoke with the hospitalist, no fever after admission, culture so far negative, no neutropenia. CT scan showed no evidence of pulmonary embolism, ground-glassopacity in the right lung. -receiving broad-spectrum antibiotic coverage Likely to go home with Levaquin, * Telephone Encounter - Zhao Bedolla MD - 04/18/2024 2:51 PM EDT 04/18/2024 Rafael Cramer Primary director long term care/oncologist: Dr. Armando Covering director long term care/oncologist: Dr. Villanueva Person I talked with: Patient [...] 9:30 AM EDT Pharmacy Pharmacy Hematology Oncology [facility] [address] [facility] [place] [address] [facility] Hem/Onc [address] [place] [address] 04/21/2024 10:30 AM EDT Laboratory Laboratory [facility] Shaina Garcia 200 [facility] [place] [address] Rehana, Lab Scenery [address] [place], [place] [address] 04/21/2024 11:30 AM EDT [facility] [address] [place], [place] [address] Rehana, Chair 4 Hem Onc Scenery [address] [place], [place] [address] 05/06/2024 10:00 AM EDT Laboratory Laboratory [facility] [place] [address] [place], [place] [phone] Rehana, Lab Scenery [address] [place], [place] [address] 05/06/2024 10:30 AM EDT Office Visit Hematology/Oncology [facility] [place] [address] [place], [place] [phone] Taylor Barone CRNP [address] [place] [address] 05/06/2024 11:00 AM EDT Hem[facility] 200 [facility], [place] [address] Rehana, Chair 6 Hem Onc [facility] [address] [place], [place] [address] 07/21/2024 1:45 PM EDT Office Visit Hematology/Oncology [facility] [place] [address] [place], [place] [address] [place] Armando MD [address] [place] [address] 07/24/2024 11:40 AM EDT Office Visit [facility] [address] [facility] [place] [address] Sergio Barriga MD 132 [facility] [place] [address] Scheduled Procedures Name Priority Associated Diagnoses Date/Ti [...] this encounter Medical Devices Implanted Type Area Bottle House Quality Control Technician Device Identifier Shelf Expiration Date Model / Serial / Lot Duraclip 16mm Xlg Repostn - [id number] Implanted:Qty : 1 on 07/17/2021 by Guillermo Jones DO at [facility] [employer] [place] [id number] 01/10/2024 [id number] / / [id number] Stent Viabil Biliary 35urf2uf - [id number] Implanted:Qty : 1 on 07/17/2021 by Guillermo Jones DO at ENDOSCOPY [facility] [employer] [place] [id number] 03/04/2024 [id number] / [id number] / [id number] Port Implant W/8f Poly Cath - [id number] Implanted:Qty : 1 on 09/13/2023 by Gary Rodriguez DO at OR [facility] Right: Chest CR BARD : PERIPHERAL VASCULAR [id number] 04/24/2025 [id number] / / [id number] documented as of this encounter Advance Directives Documents on File Type Date Recorded Patient System Safety Engineer Expl anation Advance Directives and Living [...] Agen t (per Health Care Power of Co Founder And President document) [email or web address] Temo Bela Sibling First Alternate Health Care Agent (per Health Care Power of Co Founder And President document) Care Teams Manager Medical Affairs Relationship Specialty Start Date End Date Sergio Barriga MD [address] [place] [address] PCP - General Family Medicine 08/07/19 documented as of this encounter
--- OUTSIDE RECORDS SUMMARY | 2024-04-30 15:51 | External Medical Summary | Summary of Care ---
Author Name Unknown Organization [facility] Address [address] [place] [address] Phone [phone] Care Team Providers Care Gravity Flow Irrigator Name Role Phone Sergio Barriga MD Primary Care Provider + Reason for Visit * Reason Onset Date Comments Fever 04/18/2024 Encounter Details Date Type Department Care Team (Late st Contact Info) Description 04/18/2024 Telephone Hematology Oncology [facility] [address] [place] [address] Zhao Bedolla MD [address] [place] [address] Fever Allergies Active Allergy Reactions Criticality Noted Date Comments Lisinopril Cough Low 08/07/2019 documented as of this encounter (statuses as of 04/19/2024) Medications Medication Sig Dispensed Refills Start Date End Date Status Boost 100 Calorie Smart Oral Liquid Take by mouth. Act miley Multi Vitamin Daily Oral Tablet Take by mouth. Act miley Aspirin 81 MG Oral Tablet Delayed Release Take 1 Tablet by mouth in the morning. Active Pancrelipase (Hxn-Kapd-Emat) 62235-84[address] UNIT Oral Capsule Delayed Release Particles (Creon 49703) 2 cap with meals, 1 with larger [...] as of this encounter (statuses as of 04/19/2024) Active Problems Problem Noted Date Diagnosed Date Malignant neoplasm of body of pancreas 3 Metastasis to liver 08/30/2023 Encounter for antineoplastic chemotherapy 2022 History of carcinoma of pancreas 07/18/2023 Post-viral cough syndrome 07/09/2023 Upper airway cough syndrome 07/09/2023 History of 2019 novel coronavirus disease (COVID -19) 10/16/2022 Coronary artery disease invo lving [place] coronary artery of [place] heart without angina pectoris 08/20/2022 Overview: Severe [...] as of this encounter (statuses as of 04/19/2024) Resolved Problems Problem Noted Date Diagnosed Date [...] WNL, antiphos lipids WNL Factor V+heteroqygous. FM HQ-XRUT-YOLFT DIS NEC documented as of this encounter (statuses as of 04/19/2024) Immunizations Name Administration Dates Next Due COVID-19 mRNA, LNP-s, No Pre serve, 2-Dose Series ([employer]) 01/13/2022,07/21/2021,02/01/2021,12/26 COVID-19, MRNA-LNP, 23-24, P F, 30 MCG/0.3 mL, 12 YRS AND ABOVE, IM ([employer]-Comirnat) 09/12/2023 Covid-19, Mrna, Lnp-s, Pf, B ivalent, 30 Mcg, IM, 12 yrs and above ([employer]) 08/16/2022 HEP A - Hepatitis A (Adult [...] encounter Miscellaneous Notes * Telephone Encounter - Dakota Armando MD - 04/19/2024 11:07 AM EDT Admitted at [facility], spoke with the hospitalist, no fever after admission, culture so far negative, no neutropenia. CT scan showed no evidence of pulmonary embolism, ground-glassopacity in the right lung. -receiving broad-spectrum antibiotic coverage Likely to go home with [facility], * Telephone Encounter - Zhao Bedolla MD - 04/18/2024 2:51 PM EDT 04/18/2024 Rafael Cramer Primary guest services representative/oncologist: Dr. Armando Covering guest services representative/oncologist: Dr. Villanueva Person I talked with: Patient [...] 9:30 AM EDT Pharmacy Pharmacy Hematology Oncology [address] [address] [facility] Hem/Onc [facility] [place] [address] 04/21/2024 10:30 AM EDT Laboratory Laboratory [facility] [place] [address] [place] [phone] Rehana, Lab Scenery [address] [place] [address] 04/21/2024 11:30 AM EDT Hem/Onc Treatment Hematology/Oncology Treatment, [place] [address] [place] [phone] Rehana, Chair 4 Hem Onc Scenery [address] [place] [address] 05/06/2024 10:00 AM EDT Laboratory Laboratory [facility] Rehana [place] [address] [place] [phone] Rehana, Lab Scenery [address] [place] [address] 05/06/2024 10:30 AM EDT Office Visit Hematology/Oncology [facility] [place] [address] [place] [phone] Taylor Barone CRNP [facility] [address] 05/06/2024 11:00 AM EDT Hem/Onc Treatment Hematology/Oncology Treatment, [place] [address] [place] [phone] Rehana, Chair 6 Hem Onc [address] [place] [address] 07/21/2024 1:45 PM EDT Office Visit Hematology/Oncology [facility] [place] 200 [facility] [place] [phone] [place] Armando MD 200 [facility] [place] [address] 07/24/2024 11:40 AM EDT Office Visit Family Practice [facility] 132 [facility] [place] [address] Sergio Barriga MD 132 [facility] [place] [address] Scheduled Procedures Name Priority Associated Diagnoses Date/Ti [...] this encounter Medical Devices Implanted Type Area Sealer Sander Device Identifier Shelf Expiration Date Model / Serial / Lot Duraclip 16mm Xlg Repostn - [id number] Implanted:Qty : 1 on 07/17/2021 by Guillermo Jones DO at ENDOSCOPY [facility] [employer] RE[employer] [id number] 01/10/2024 [id number] / / [id number] Stent Viabil Biliary 14ten4zk - [id number] Implanted:Qty : 1 on 07/17/2021 by Guillermo Jones DO at ENDOSCOPY [facility] [employer] RE[employer] [id number] 03/04/2024 [id number] / [id number] / [id number] Port Implant W/8f Poly Cath - [id number] Implanted:Qty : 1 on 09/13/2023 by Gary Rodriguez DO at OR [facility] Right: Chest CR BARD : PERIPHERAL VASCULAR [id number] 04/24/2025 [id number] / / [id number] documented as of this encounter Advance Directives Documents on File Type Date Recorded Patient Supervisor Reinforced Steel Placing Expl anation Advance Directives and Living Will [...] Agen t (per Health Care Power of Evening Sitter document) [email or web address] Temo Bowserenrique Sibling First Alternate Health Care Agent (per Health Care Power of Evening Sitter document) [email or web address] Care Teams Gravity Flow Irrigator Relationship Specialty Start Date End Date Sergio Barriga MD [address] [place] [phone] PCP - General Family Medicine 08/07/19 documented as of this encounter
--- OUTSIDE RECORDS SUMMARY | 2024-04-30 15:51 | External Medical Summary | Summary of Care ---
Author Name Unknown Organization [facility] Address [address] [place] [address] Phone [phone] Care Team Providers Care Director Of Entertainment Name Role Phone Sergio Barriga MD Primary Care Provider + Reason for Visit * Reason Onset Date Comments Fever 04/18/2024 Encounter Details Date Type Department Care Team (Late st Contact Info) Description 04/18/2024 Telephone Hematology Oncology [facility] [address] [place] [address] Zhao Bedolla MD [address] [place] [address] Fever Allergies Active Allergy Reactions [...] by mouth in the morning. Active Pancrelipase (Pte-Alim-Bypw) 78863-63187 UNIT Oral Capsule Delayed Release Particles (Creon 99196) 2 cap with meals, 1 with larger [...] [place] W[place] [address] lEena [facility] Essential hypertension with [...] WNL, antiphos lipids WNL Factor V+heteroqygous. FM JQ-PIMV-WFDVY DIS NEC documented as of this encounter (statuses as of 04/21/2024) Immunizations Name Administration Dates Next Due COVID-19 mRNA, LNP-s, No Pre serve, 2-Dose Series (Downstream) 01/13/2022,07/21/2021,02/01/2021,12/26 COVID-19, MRNA-LNP, 23-24, P F, 30 MCG/0.3 mL, 12 YRS AND ABOVE, IM ([employer]-Comirnat) 09/12/2023 Covid-19, Mrna, Lnp-s, Pf, B ivalent, 30 Mcg, IM, 12 yrs and above (Downstream) 08/16/2022 HEP A - Hepatitis A (Adult [...] summary printed to be scanned into chart. Left message for patient to return call. * Telephone Encounter - Dakota Armando MD - 04/19/2024 11:07 AM EDT Admitted at [facility], spoke with the hospitalist, no fever after admission, culture so far negative, no neutropenia. CT scan showed no evidence of pulmonary embolism, ground-glassopacity in the right lung. -receiving broad-spectrum antibiotic coverage Likely to go home with Levaquin, * Telephone Encounter - Zhao Bedolla MD - 04/18/2024 2:51 PM EDT 04/18/2024 Rafael Cramer Primary broadcast maintenance technician/oncologist: Dr. Armando Covering broadcast maintenance technician/oncologist: Dr. Villanueva Person I talked with: Patient [...] 9:30 AM EDT Pharmacy Pharmacy Hematology Oncology [address] [address] [facility] Clinic Hem/Onc [address] [place] [address] 04/21/2024 10:30 AM EDT Laboratory Laboratory Sharif Kimball [place] [address] [place] [phone] Renee Kimball [place] [address] [place] [facility] [place] [address] 04/21/2024 11:30 AM EDT Hem/Onc Treatment Hematology/Oncology Treatment, [place] [address] [facility] [place] [phone] Rehana, Chair 4 Hem Onc Scenery [address] [place] [address] 05/06/2024 10:00 AM EDT Laboratory Laboratory [facility] Rehana [place] [address] [place] [phone] Rehana, Lab Scenery [address] [facility] [place], [place] [address] 05/06/2024 10:30 AM EDT Office Visit Hematology/Oncology [facility] Rehana [place] [address] [place] [phone] Taylor Barone CRNP [address] [place] [address] 05/06/2024 11:00 AM EDT Hem/Onc Treatment Hematology/Oncology Treatment, [place] [address] [place], [place] [phone] Rehana, Chair 6 Hem Onc Scenery [address] [place], [place] [address] 07/21/2024 1:45 PM EDT Office Visit Hematology/Oncology [facility] [place] [address] [place] [phone] Dakota Armando MD [address] [place], [place] [address] 07/24/2024 11:40 AM EDT Office Visit Family Practice [facility] [address] [place] [address] Sergio Barriga MD [address] [place] [address] Scheduled Procedures Name Priority Associated Diagnoses Date/Ti [...] this encounter Medical Devices Implanted Type Area Pattern Lease Inspector Device Identifier Shelf Expiration Date Model / Serial / Lot Duraclip 16mm Xlg Repostn - [id number] Implanted:Qty : 1 on 07/17/2021 by Guillermo Jones DO at [facility] [employer]no REYNALDO [id number] 01/10/2024 [id number] / / [id number] Stent Viabil Biliary 08oop1uz - [id number] Implanted:Qty : 1 on 07/17/2021 by Guillermo Jones DO at [facility] [employer] REYNALDO [id number] 03/04/2024 [id number] / [id number] / [id number] Port Implant W/8f Poly Cath - [id number] Implanted:Qty : 1 on 09/13/2023 by Gary Rodriguez DO at OR [facility] Right: Chest CR BARD : PERIPHERAL VASCULAR [id number] 04/24/2025 [id number] / / [id number] documented as of this encounter Advance Directives Documents on File Type Date Recorded Patient Aitchbone Breaker Expl anation Advance Directives and Living Will [...] Agen t (per Health Care Power of Dealer Sales Rep document) [email or web address] Temo Bela Sibling First Alternate Health Care Agent (per Health Care Power of Dealer Sales Rep document) [email or web address] Care Teams Director Of Entertainment Relationship Specialty Start Date End Date Sergio Barriga MD [address] [place] [address] PCP - General Family Medicine 08/07/19 documented as of this encounter
--- OUTSIDE RECORDS SUMMARY | 2024-04-30 15:51 | External Medical Summary | Summary of Care ---
Author Name Unknown Organization [facility] Address [address] [facility] [address] Phone [phone] Care Team Providers Care Customer Relations Specialist Name Role Phone Sergio Barriga MD Primary Care Provider + Reason for Visit * Reason Onset Date Comments Appointment 04/21/2024 Encounter Details Date Type Department Care Team (Late st Contact Info) Description 04/21/2024 Telephone Hematology/Oncology [place] Shaina Kim[facility] 200 [facility] [place] [phone] Dakota Armando MD 200 [facility] [place] [address] Appointment Allergies Active Allergy Reactions Criticality Noted [...] by mouth in the morning. Active Pancrelipase (Kmc-Ahek-Yzxy) [address] UNIT Oral Capsule Delayed Release Particles (Creon 21738) 2 cap with meals, 1 with larger [...] antiphos lipids WNL Factor V+heteroqygous. 04/10 colon-Dr Elelr [facility] 2 polyps 1 tubular [...] WNL, antiphos lipids WNL Factor V+heteroqygous. FM JW-EECE-ONKNE DIS NEC documented as of this encounter (statuses as of 04/21/2024) Immunizations Name Administration Dates Next Due COVID-19 mRNA, LNP-s, No Pre serve, 2-Dose Series ([employer]) 01/13/2022,07/21/2021,02/01/2021,01/04 COVID-19, MRNA-LNP, 23-24, P F, 30 MCG/0.3 mL, 12 YRS AND ABOVE, IM ([facility]) 09/12/2023 Covid-19, Mrna, Lnp-s, Pf, B ivalent, 30 Mcg, IM, 12 yrs and above ([employer]) 08/16/2022 HEP A - Hepatitis A (Adult [...] 10:30 AM EDT Laboratory Laboratory Sharif Kimball [place] [address] [place] [phone] Renee Kimball [address] [place] [address] 04/28/2024 9:30 AM EDT Pharmacy Pharmacy Hematology Oncology [facility] [place] [address] [place] [address] [facility] Hem/Onc [address] [place] [address] 05/06/2024 10:00 AM EDT Laboratory Laboratory [facility] [place] 200 [facility] [place] [phone] [place] [address] 05/06/2024 10:30 AM EDT Office Visit Hematology/Oncology [facility] [place] 200 [facility] [place] [phone] Taylor Barone CRNP [address] [place] [address] 05/06/2024 11:00 AM EDT Hem/Onc Treatment Hematology/Oncology Treatment, [place] [address] [facility] [address] [place], [place] [phone] Rehnaa, Chair 6 Hem Onc [address] [place], [place] [address] 07/21/2024 1:45 PM EDT Office Visit Hematology/Oncology [facility] [address] [place] [phone] Dakota Armando MD 200 [facility] [place], [place] [address] 07/24/2024 11:40 AM EDT Office Visit [facility] [address] [place] [address] Sergio Barriga MD [address] [place] [address] Scheduled Procedures Name Priority Associated Diagnoses Date/Ti [...] this encounter Medical Devices Implanted Type Area Nylon Machine Operator Device Identifier Shelf Expiration Date Model / Serial / Lot Duraclip 16mm Xlg Repostn - [id number] Implanted:Qty : 1 on 07/17/2021 by Guillermo Jones DO at ENDOSCOPY [facility] [employer] [place] [id number] 01/10/2024 [id number] / / [id number] Stent Viabil Biliary 07njb1ib - [id number] Implanted:Qty : 1 on 07/17/2021 by Guillermo Jones DO at ENDOSCOPY [facility] [employer] REYNALDO [id number] 03/04/2024 [id number] / [id number] / [id number] Port Implant W/8f Poly Cath - [id number] Implanted:Qty : 1 on 09/13/2023 by Gary Rodriguez DO at OR [facility] Right: Chest CR BARD : PERIPHERAL VASCULAR [id number] 04/24/2025 [id number] / / [id number] documented as of this encounter Advance Directives Documents on File Type Date Recorded Patient M48/M60 Tank Driver Expl anation Advance Directives and Living [...] Agen t (per Health Care Power of Fitness Club Manager document) [email or web address] Temo Bela Sibling First Alternate Health Care Agent (per Health Care Power of Fitness Club Manager document) [email or web address] Care Teams Customer Relations Specialist Relationship Specialty Start Date End Date Sergio Barriga MD [address] [place] [address] PCP - General Family Medicine 08/07/19 documented as of this encounter
== END 2024-04-19 12:31 | disposition home or self-care (01) | DRG 194 ==
LOC: ED 15:36 → INTOOBSV 18:51 → EDINP 18:51 → OBSVTOIN 18:51 → 2W 19:17